=== PATIENT | female | born 1960 | race Caucasian/White ===

== ENCOUNTER 2017-09-28 13:40 | Inpatient (IN) | payer OTHER ==
--- OUTSIDE RECORDS SUMMARY | 2017-09-28 13:44 | XMS REPORT ---
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 Problem Back pain M54.9 Active Problem O2 dependent Z99.81 Active Problem Depression with anxiety F41.8 Active Problem Gastro-esophageal reflux disease K21.9 Active without esophagitis Problem Lymphedema I89.0 Active Problem Shingles B02.9 Active Assessment Congestive heart failure, systolic, I50.20 Active left NYHA class 4 Problem Benign essential HTN I10 Active Problem Congestive heart failure, systolic, I50.20 Active left NYHA class 4 Medications Medication Code System Code Instructions Start Date End Date Status Dosage Furosemide [facility] 20632779380 80 MG Orally Active 1 tablet Twice a day Results No Known Results Summary Purpose [employer] Compliance Submission
--- OUTSIDE RECORDS SUMMARY | 2017-09-28 13:44 | XMS REPORT | Clinical Summary ---
:1960 Author Organization [facility] Address [address] [place] [address] Care Team Providers Name Role Phone Asked, No Pcp Primary Care Provider Unavailable Allergies No Known Allergies Current Medications Prescription Sig. Disp. Refills Start Date End Date Status traMADol (ULTRAM) 50 Take 50 mg by Active mg tablet mouth every 6 (six) hours as needed for moderate pain. furosemide (LASIX) Take 80 mg by Active 80 mg tablet mouth 3 (three) times a day. atenolol (TENORMIN) Take 50 mg by Active 50 MG tablet mouth daily. hydrALAZINE Take 25 mg by Active (APRESOLINE) 25 MG mouth 2 (two) tablet times a day. ALPRAZolam (XANAX) Take 0.25 mg by Active 0.25 MG tablet mouth nightly as needed for anxiety. potassium chloride Take 20 mEq by Active (K-DUR,KLOR-CON) 10 mouth 3 (three) MEQ CR tablet times a day. citalopram (CeleXA) Take 20 mg by Active 20 MG tablet mouth daily. pantoprazole Take 40 mg by Active (PROTONIX) 40 MG EC mouth daily. tablet cyanocobalamin 1000 Take 1,000 mcg by Active MCG tablet mouth daily. ascorbic acid, Take 500 mg by Active vitamin C, (VITAMIN mouth daily. C) 500 MG tablet fluticasone-salmeter Inhale 1 puff 2 Active ol (ADVAIR) 100-50 (two) times a day. mcg/dose DISKUS albuterol Take 2.5 mg by Active (PROVENTIL) 2.5 mg nebulization 4 /3 mL (0.083 %) (four) times a nebulizer solution day. guaiFENesin Take 1 tablet (600 60 tablet 0 09/26/2016 (MUCINEX) 600 mg mg total) by mouth 7 tablet extended 2 (two) times a release 12hr day for 30 days. fluticasone 2 sprays (100 mcg 15.8 mL 0 09/26/2016 (FLONASE) 50 total) by Each 7 mcg/actuation nasal Nare route daily spray for 30 days. nystatin Apply topically 2 240 g 0 09/26/2016 (MYCOSTATIN) 100,000 (two) times a day 7 unit/gram powder for 30 days. minocycline Take 1 capsule 14 capsule 0 09/26/2016 (MINOCIN) 100 MG (100 mg total) by 7 capsule mouth 2 (two) times a day for 7 days. albuterol (PROAIR Inhale 2 puffs 18 g 11 09/26/2016 HFA,PROVENTIL every 6 (six) 7 HFA,VENTOLIN HFA) 90 hours as needed mcg/actuation for wheezing for inhaler up to 30 days. Active Problems Problem Noted Date CHF (congestive heart failure) 09/22/2016 Chronic obstructive pulmonary disease with acute exacerbation 09/22/2016 Lymphedema 09/22/2016 Essential hypertension 09/22/2016 Social History Tobacco Use Types Packs/Day Years Used Date Never Assessed Sex Assigned at Date Recorded Not on file Last Filed Vital Signs Not on file Plan of Treatment Not on file Results Not on fileafter 09/27/2016 Insurance Payer Benefit Plan / Group Subscriber ID Type Phone Address AETNA MEDICARE AETNA MEDICARE HMO/PPO [facility] xxxxxxxx HMO
--- OUTSIDE RECORDS SUMMARY | 2017-09-28 13:44 | XMS REPORT ---
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 Assessment O2 dependent Z99.81 Active Problem Back pain M54.9 Active Problem O2 dependent Z99.81 Active Problem Depression with anxiety F41.8 Active Problem Gastro-esophageal reflux disease K21.9 Active without esophagitis Problem Lymphedema I89.0 Active Problem Shingles B02.9 Active Assessment Lymphedema I89.0 Active Assessment Depression with anxiety F41.8 Active Assessment Gastro-esophageal reflux disease K21.9 Active without esophagitis Assessment Back pain M54.9 Active Assessment Congestive heart failure, systolic, I50.20 Active left NYHA class 4 Assessment Chronic bronchitis with COPD J44.9 Active (chronic obstructive pulmonary disease) Assessment Hyperlipidemia, mixed E78.2 Active Problem Benign essential HTN I10 Active Assessment Benign essential HTN I10 Active Problem Congestive heart failure, systolic, I50.20 Active left NYHA class 4 Medications Medication Code Code Instructions Start End Status Dosage System Date Date Metolazone [facility] 83631375258 2.5 MG Orally M, Active 1 tablet W, F. Take 30 minutes before taking alsix in AM. Ventolin HFA [facility] 38775271193 108 (90 Base) Active 2 puffs MCG/ACT as needed Inhalation every 6 hrs -81 ND 83633604298 81 MG Orally Active 1 tablet Once a day Ultram [facility] 10539378833 50 MG Orally Sept Active 1 tablet once a day as 24, as needed needed 2017 Furosemide ND 33954133296 80 MG Orally Active 1 tablet Once a day Breo Ellipta ND 64266540221 100-25 MCG/INH Sept Active 1 puff Inhalation Once 24, a day 2017 Pantoprazole ND 86498542748 40 MG Orally Active 1 tablet Sodium Once a day Atenolol [facility] 42917256050 50 MG Orally Active 1 tablet Once a day Klor-Con M10 [facility] 23902110537 10 MEQ Orally Active 1 tablet Twice a day with food Alprazolam [facility] 75221925800 0.25 MG Orally Active 1 tablet Twice a day HydrALAZINE HCl [facility] 02603688364 25 MG Orally Active 1 tablet Three times a with food day Cozaar [facility] 45201990639 50 MG Orally Active 1 tablet Once a day Citalopram [facility] 61317546005 40 MG Orally Active 1 tablet Hydrobromide Once a day Results No Known Results Summary Purpose [employer]Works Submission
--- NOTE | 2017-09-28 15:08 | RAD REPORT ---
EXAM DESCRIPTION: RAD - Chest Pa And Lat (2 Views) - 09/28/2017 3:03 pm CLINICAL HISTORY: COPD;Chest pain Chest pain. COMPARISON: Chest Single View dated 08/12/2016; Chest Pa And Lat (2 Views) dated 06/12/2016; Chest Singl e View dated 06/11/2016; Chest Single View dated 06/10/2016 FINDINGS: Linear opacities are present in both lungs most compatible with subsegmental atelectasis. No pneumothorax is seen. The heart is mildly prominent size. No displaced fractures. IMPRESSION: Bilateral subsegmental atelectasis is present.
--- NOTE | 2017-09-28 16:34 | EDPHYS ---
Physician Documentation [facility] Name: Gaye Castro Age: 56 yrs Sex: Female : 1960 Arrival Date: 09/28/2017 Time: 13:53 Bed 14 Private MD: ED Physician Mariano Berg HPI: 09/28 16:29 This 56 yrs old Female presents to ER via Ambulatory with complaints of rosalind Shortness Of Breath. 16:29 The patient has shortness of breath with light activity. Onset: The symptoms/episode rosalind began/occurred 3 day(s) ago. Duration: The symptoms are continuous, and are steadily getting worse. The patient's shortness of breath is aggravated by supine position, walking. Associated signs and symptoms: The patient has no apparent associated signs or symptoms. Severity of symptoms: At their worst the symptoms were moderate in the emergency department the symptoms are unchanged. The patient has experienced similar episodes in the past, multiple times. 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 N/A - Post-menopause aj Historical: - Allergies: 13:59 No Known Allergies; aj - Home Meds: 13:59 Advair Diskus 100-50 mcg/dose Inhl dsdv 1 puff 2 times per day [Active]; albuterol aj sulfate 2.5 mg/0.5 mL Inhl nebu 0.5 mL 4 times per day [Active]; alprazolam 0.25 mg Oral tab 1 tab once a day [Active]; Apresoline Oral 25 mg twice a day [Active]; atenolol 50 mg Oral tab 1 tab once daily [Active]; Breo Ellipta inhalation 1 puff once daily [Active]; citalopram 20 mg tab 1 tab once daily [Active]; hydralazine 25 mg Oral tab 1 tab 2 times per day [Active]; Klor-Con M20 20 mEq Oral TbTQ 1 tab once daily [Active]; Lasix 80 mg Oral tab 1 tab once daily [Active]; pantoprazole 40 mg Oral TbEC 1 tab once daily [Active]; tramadol 50 mg Oral tab as needed [Active]; Ventolin Rotahaler/Rotacaps 90 Inhl 90 mcg four times a day [Active]; - PMHx: 13:59 Anxiety; CHF; COPD; Depression; Hypertension; hypoxia; lymphedema; Pneumonia; Sleep aj Apnea; small heart and lungs; uses home o2; - PSHx: 13:59 None; aj - Immunization history:: Adult Immunizations up to date. - Social history:: Smoking status: Patient/guardian denies using tobacco. - Ebola Screening: : Patient negative for fever greater than or equal to 101.5 degrees Fahrenheit, and additional compatible Ebola Virus Disease symptoms Patient denies exposure to infectious person Patient denies travel to an Ebola-affected area in the 21 days before illness onset No symptoms or risks identified at this time. ROS: 16:29 Constitutional: Negative for fever, chills, and weight loss, Eyes: Negative for injury, rosalind pain, redness, and discharge, ENT: Negative for injury, pain, and discharge, Neck: Negative for injury, pain, and swelling, Cardiovascular: Negative for chest pain, palpitations, and edema, Abdomen/GI: Negative for abdominal pain, nausea, vomiting, diarrhea, and constipation, Back: Negative for injury and pain, : Negative for injury, bleeding, discharge, and swelling, Skin: Negative for injury, rash, and discoloration, Neuro: Negative for headache, weakness, numbness, tingling, and seizure, Psych: Negative for depression, anxiety, suicide ideation, homicidal ideation, and hallucinations, Allergy/Immunology: Negative for hives, rash, and allergies, Endocrine: Negative for neck swelling, polydipsia, polyuria, polyphagia, and marked weight changes, Hematologic/Lymphatic: Negative for swollen nodes, abnormal bleeding, and unusual bruising. 16:29 Respiratory: Positive for cough, shortness of breath, wheezing, inspiratory, expiratory. 16:29 MS/extremity: Positive for decreased range of motion, pain, swelling, of the right leg and left leg. Exam: 16:29 Constitutional: This is a well developed, well nourished patient who is awake, alert, rosalind and in no acute distress. Head/Face: Normocephalic, atraumatic. Eyes: Pupils equal round and reactive to light, extra-ocular motions intact. Lids and lashes normal. Conjunctiva and sclera are non-icteric and not injected. Cornea within normal limits. Periorbital areas with no swelling, redness, or edema. ENT: Nares patent. No nasal discharge, no septal abnormalities noted. Tympanic membranes are normal and external auditory canals are clear. Oropharynx with no redness, swelling, or masses, exudates, or evidence of obstruction, uvula midline. Mucous membranes moist. Neck: Trachea midline, no thyromegaly or masses palpated, and no cervical lymphadenopathy. Supple, full range of motion without nuchal rigidity, or vertebral point tenderness. No Meningismus. Chest/axilla: Normal chest wall appearance and motion. Nontender with no deformity. No lesions are appreciated. Cardiovascular: Regular rate and rhythm with a normal S1 and S2. No gallops, murmurs, or rubs. Normal PMI, no JVD. No pulse deficits. Abdomen/GI: Soft, non-tender, with normal bowel sounds. No distension or tympany. No guarding or rebound. No evidence of tenderness throughout. Back: No spinal tenderness. No costovertebral tenderness. Full range of motion. Female : Normal external genitalia. Skin: Warm, dry with normal turgor. Normal color with no rashes, no lesions, and no evidence of cellulitis. Neuro: Awake and alert, GCS 15, oriented to person, place, time, and situation. Cranial nerves II-XII grossly intact. Motor strength 5/5 in all extremities. Sensory grossly intact. Cerebellar exam normal. Normal gait. Psych: Awake, alert, with orientation to person, place and time. Behavior, mood, and affect are within normal limits. 16:29 Respiratory: mild respiratory distress is noted, Respirations: normal, Breath sounds: decreased breath sounds, rhonchi, wheezing: expiratory 16:29 Musculoskeletal/extremity: Extremities: swelling, ROM: limited active range of motion, limited passive range of motion, Circulation is intact in all extremities. Sensation intact. Compartment Syndrome exam of affected extremity: is normal. DVT Exam: no pain, negative Homans' sign noted on exam, no appreciated bluish discoloration, no erythema, no increased warmth, swelling, tenderness. Vital Signs: 13:59 BP 126 / 73; Pulse 96; Resp 17; Temp 97.7; Pulse Ox 89% on 2 lpm NC; Weight 131.54 kg; aj Height 5 ft. 0 in. (152.40 cm); 15:00 BP 127 / 74; Pulse 88; Resp 20; Pulse Ox 94% on 2 lpm NC; ph 16:00 BP 127 / 66; Pulse 73; Resp 22; Pulse Ox 91% on 2 lpm NC; ph 17:19 BP 128 / 79; Pulse 66; Resp 18; Temp 97.8; Pulse Ox 95% on 2 lpm NC; ph 18:45 BP 118 / 67; Pulse 78; Resp 22; Pulse Ox 91% on 2 lpm NC; ph 20:00 BP 118 / 67; Pulse 90; Resp 19; Pulse Ox 97% on R/A; Pain 0/10; ao 13:59 Body Mass Index 56.64 (131.54 kg, 152.40 cm) aj MDM: 15:56 Patient medically screened. [facility] 16:29 Data reviewed: vital signs, nurses notes, lab test result(s), EKG, radiologic studies, [facility] CT scan, plain films. 09/28 16:01 Order name: Basic Metabolic Panel; Complete Time: 18:51 [facility] 09/28 16:01 Order name: CBC with Diff; Complete Time: 18:51 [facility] 09/28 16:01 Order name: Ckmb; Complete Time: 18:52 [facility] 09/28 16:01 Order name: CPK; Complete Time: 18:52 [facility] 09/28 16:01 Order name: LFT's; Complete Time: 18:51 [facility] 09/28 16:01 Order name: Magnesium; Complete Time: 18:52 [facility] 09/28 14:49 Order name: Chest Pa And Lat (2 Views) XRAY; Complete Time: 16:28 [facility] 09/28 16:01 Order name: NT PRO-BNP; Complete Time: 18:51 [facility] 09/28 16:01 Order name: PT-INR; Complete Time: 18:51 [facility] 09/28 16:01 Order name: Ptt, Activated; Complete Time: 18:52 [facility] 09/28 16:01 Order name: Troponin (emerg Dept Use Only); Complete Time: 18:52 [facility] 09/28 16:01 Order name: Blood Culture Adult (2) [facility] 09/28 16:01 Order name: Procalcitonin; Complete Time: 18:52 [facility] 09/28 14:49 Order name: O2 Per Protocol; Complete Time: 20:15 [facility] 09/28 16:01 Order name: EKG; Complete Time: 16:02 [facility] 09/28 16:01 Order name: Cardiac monitoring; Complete Time: 16:19 [facility] 09/28 16:01 Order name: EKG - Nurse/Tech; Complete Time: 16:19 [facility] 09/28 16:01 Order name: IV Saline Lock; Complete Time: 17:18 [facility] 09/28 16:01 Order name: Labs collected and sent; Complete Time: 17:18 [facility] 09/28 16:01 Order name: O2 Per Protocol; Complete Time: 16:08 [facility] 09/28 16:01 Order name: O2 Sat Monitoring; Complete Time: 16:08 [facility] 09/28 16:29 Order name: CT Chest For PE Angio [facility] 09/28 16:38 Order name: CONS Physician Consult [facility] 09/28 18:08 Order name: CT; Complete Time: 18:52 [facility] 09/28 18:52 Order name: INCENTIVE SPIROMETRY [facility] Administered Medications: 16:14 CANCELLED (Duplicate Order): LevOfloxacin 500 mg PO once [facility] 16:55 Drug: SOLU-Medrol 125 mg Route: IVP; Site: right antecubital; ph 19:20 Follow up: Response: No adverse reaction ph 17:00 Drug: Albuterol - atroVENT (3:1) (2.5 mg - 0.5 mg) 3 ml Route: Nebulizer; ph 19:21 Follow up: Response: No adverse reaction ph 17:00 Drug: levofloxacin 500 mg Volume: 100 ml; Route: IVPB; Infused Over: 60 mins; Site: ph right antecubital; 19:20 Follow up: Response: No adverse reaction; IV Status: Completed infusion ph Disposition: 09/28/17 16:33 Hospitalization ordered by Alexx Smith for Inpatient Admission. Preliminary diagnosis are Dyspnea, Dyspnea, unspecified, Chronic obstructive pulmonary disease with (acute) exacerbation, Cardiomegaly, Hypoxemia, Obesity, unspecified. - Bed requested for Telemetry/MedSurg (Inpatient). - Status is Inpatient Admission. ao - Condition is Fair. - Problem is new. - Symptoms have improved. UTI on Admission? No Signatures: Dispatcher [employer] EDMS Samira Delacruz RN RN aj Anderson, Corey, MD MD cha Therrien, Shelly, BILINGUAL TEACHER-C BILINGUAL TEACHER-Csnw Celena Montez RN RN ph Ortiz, Alex, RN RN ao Botello, Elizabeth eb Corrections: (The following items were deleted from the chart) 16:03 16:02 PROBNP+C.LAB.BRZ ordered. EDIA EDMS 16:14 16:01 LevOfloxacin 500 mg PO once ordered. [facility] 19:21 16:33 Hospitalization Ordered by Alexx Smith DO for Inpatient Admission. Preliminary eb diagnosis is Dyspnea; Dyspnea, unspecified; Chronic obstructive pulmonary disease with (acute) exacerbation; Cardiomegaly; Hypoxemia; Obesity, unspecified. Bed requested for Telemetry/MedSurg (Inpatient). Status is Inpatient Admission. Condition is Fair. Problem is new. Symptoms have improved. UTI on Admission? No. [facility] 20:23 19:21 09/28/2017 16:33 Hospitalization Ordered by Alexx Smith DO for Inpatient ao Admission. Preliminary diagnosis is Dyspnea; Dyspnea, unspecified; Chronic obstructive pulmonary disease with (acute) exacerbation; Cardiomegaly; Hypoxemia; Obesity, unspecified. Bed requested for Telemetry/MedSurg (Inpatient). Status is Inpatient Admission. Condition is Fair. Problem is new. Symptoms have improved. UTI on Admission? No. eb
--- NOTE | 2017-09-28 16:34 | ER ---
Nurse's Notes [facility] Name: Gaye Castro Age: 56 yrs Sex: Female : 1960 Arrival Date: 09/28/2017 Time: 13:53 Bed 14 Private MD: Diagnosis: Dyspnea;Dyspnea, unspecified;Chronic obstructive pulmonary disease with (acute) exacerbation;Cardiomegaly;Hypoxemia;Obesity, unspecified Presentation: 09/28 13:57 Presenting complaint: Patient states: SOB that has gotten worse since falling out of chair almost 1 week ago. Patient reports pain to left chest. Transition of care: patient was not received from another setting of care. Onset of symptoms was September 22, 2017. Risk Assessment: Do you want to hurt yourself or someone else? Patient reports no desire to harm self or others. Initial Sepsis Screen: Does the patient meet any 2 criteria? No. Patient's initial sepsis screen is negative. Does the patient have a suspected source of infection? No. Patient's initial sepsis screen is negative. Care prior to arrival: None. 13:57 Method Of Arrival: Ambulatory 13:57 Acuity: DEBBY 3 Triage Assessment: 13:59 General: Appears in no apparent distress. obese, Behavior is calm, cooperative, aj appropriate for age. Pain: Complains of pain in left scapular area and left subscapular area. Neuro: Level of Consciousness is awake, alert, obeys commands, Oriented to person, place, time, situation, Appropriate for age. Respiratory: Reports shortness of breath at rest on exertion Onset: The symptoms/episode began/occurred gradually, the patient has moderate shortness of breath. Derm: Skin is intact, is healthy with good turgor, Skin is pink, warm \T\ dry. normal. RN CHRONIC: 13:59 LMP N/A - Post-menopause Historical: - Allergies: 13:59 No Known Allergies; aj - Home Meds: 13:59 Advair Diskus 100-50 mcg/dose Inhl dsdv 1 puff 2 times per day [Active]; albuterol aj sulfate 2.5 mg/0.5 mL Inhl nebu 0.5 mL 4 times per day [Active]; alprazolam 0.25 mg Oral tab 1 tab once a day [Active]; Apresoline Oral 25 mg twice a day [Active]; atenolol 50 mg Oral tab 1 tab once daily [Active]; Breo Ellipta inhalation 1 puff once daily [Active]; citalopram 20 mg tab 1 tab once daily [Active]; hydralazine 25 mg Oral tab 1 tab 2 times per day [Active]; Klor-Con M20 20 mEq Oral TbTQ 1 tab once daily [Active]; Lasix 80 mg Oral tab 1 tab once daily [Active]; pantoprazole 40 mg Oral TbEC 1 tab once daily [Active]; tramadol 50 mg Oral tab as needed [Active]; Ventolin Rotahaler/Rotacaps 90 Inhl 90 mcg four times a day [Active]; - PMHx: 13:59 Anxiety; CHF; COPD; Depression; Hypertension; hypoxia; lymphedema; Pneumonia; Sleep aj Apnea; small heart and lungs; uses home o2; - PSHx: 13:59 None; aj - Immunization history:: Adult Immunizations up to date. - Social history:: Smoking status: Patient/guardian denies using tobacco. - Ebola Screening: : Patient negative for fever greater than or equal to 101.5 degrees Fahrenheit, and additional compatible Ebola Virus Disease symptoms Patient denies exposure to infectious person Patient denies travel to an Ebola-affected area in the 21 days before illness onset No symptoms or risks identified at this time. Screenin:17 Abuse screen: Denies threats or abuse. Denies injuries from another. Nutritional ph screening: No deficits noted. Tuberculosis screening: No symptoms or risk factors identified. Fall Risk No fall in past 12 months (0 pts). No secondary diagnosis (0 pts). IV access (20 points). Ambulatory Aid- None/Bed Rest/Nurse Assist (0 pts). Gait- Weak (10 pts.). Mental Status- Oriented to own ability (0 pts). Assessment: 14:45 General: Appears in no apparent distress. comfortable, obese, Behavior is calm, ph cooperative, appropriate for age, Reports chills for. Pain: Denies pain. Neuro: Level of Consciousness is awake, alert, obeys commands, Oriented to person, place, time, situation. Cardiovascular: Reports shortness of breath, Denies chest pain, lightheadedness, nausea, vomiting, Capillary refill < 3 seconds Patient's skin is warm and dry. Edema is 3+ to left upper thigh, left lower thigh, left knee, left midcalf, left ankle, left toes, right upper thigh, right lower thigh, right knee, right midcalf, right ankle and right toes Rhythm is regular. Respiratory: Airway is patent Respiratory effort is even, unlabored, Respiratory pattern is regular, symmetrical, Breath sounds are diminished in left posterior lower lobe and right posterior lower lobe. GI: Reports diarrhea, Patient currently denies abdominal pain, nausea, vomiting. Derm: Skin is intact, is healthy with good turgor, Skin is pink, warm \T\ dry. Musculoskeletal: Circulation, motion, and sensation intact. Range of motion: intact in all extremities. 16:00 Reassessment: Patient appears in no apparent distress at this time. Patient and/or ph family updated on plan of care and expected duration. Pain level reassessed. Patient is alert, oriented x 3, equal unlabored respirations, skin warm/dry/pink. Awaiting lab results and CT scan Patient denies pain at this time. 17:15 Reassessment: Patient appears in no apparent distress at this time. Patient and/or ph family updated on plan of care and expected duration. Pain level reassessed. Patient is alert, oriented x 3, equal unlabored respirations, skin warm/dry/pink. Pt resting quietly, awaiting CT scan, SO at bedside. 18:25 Reassessment: Patient appears in no apparent distress at this time. Patient and/or ph family updated on plan of care and expected duration. Pain level reassessed. Patient is alert, oriented x 3, equal unlabored respirations, skin warm/dry/pink. Pt resting quietly, awaiting CT results, at bedside. 19:15 General: Appears in no apparent distress. uncomfortable, Behavior is calm, cooperative, ao appropriate for age, Reports SOB. Pain: Denies pain. Neuro: Level of Consciousness is awake, alert, obeys commands, Oriented to person, place, time, situation, Appropriate for age Moves all extremities. Speech is normal, Facial symmetry appears normal. Cardiovascular: Reports shortness of breath, Denies chest pain, lightheadedness, nausea, vomiting, Capillary refill < 3 seconds Patient's skin is warm and dry. Respiratory: Airway is patent Respiratory effort is even, unlabored, Respiratory pattern is regular, symmetrical, Breath sounds are diminished. GI: Abdomen is flat, non-distended. : No signs and/or symptoms were reported regarding the genitourinary system. EENT: No signs and/or symptoms were reported regarding the EENT system. Derm: Skin is intact, is healthy with good turgor, Skin is pink, warm \T\ dry. Musculoskeletal: Circulation, motion, and sensation intact. Range of motion: intact in all extremities. 20:19 Reassessment: Patient appears in no apparent distress at this time. Patient and/or ao family updated on plan of care and expected duration. Pain level reassessed. Patient is alert, oriented x 3, equal unlabored respirations, skin warm/dry/pink. Called report to Farnaz LOPES Charge nurse. Patient to be taken to her Room. Vital Signs: 13:59 BP 126 / 73; Pulse 96; Resp 17; Temp 97.7; Pulse Ox 89% on 2 lpm NC; Weight 131.54 kg; aj Height 5 ft. 0 in. (152.40 cm); 15:00 BP 127 / 74; Pulse 88; Resp 20; Pulse Ox 94% on 2 lpm NC; ph 16:00 BP 127 / 66; Pulse 73; Resp 22; Pulse Ox 91% on 2 lpm NC; ph 17:19 BP 128 / 79; Pulse 66; Resp 18; Temp 97.8; Pulse Ox 95% on 2 lpm NC; ph 18:45 BP 118 / 67; Pulse 78; Resp 22; Pulse Ox 91% on 2 lpm NC; ph 20:00 BP 118 / 67; Pulse 90; Resp 19; Pulse Ox 97% on R/A; Pain 0/10; ao 13:59 Body Mass Index 56.64 (131.54 kg, 152.40 cm) ED Course: 13:53 Patient arrived in ED. aj 13:58 Triage completed. aj 13:59 Arm band placed on right wrist. Patient placed in waiting room, Patient notified of wait time. 15:03 Chest Pa And Lat (2 Views) XRAY In Process Unspecified. EDMS 15:56 Mariano Berg MD is Attending Physician. rosalind 15:56 Celena Montez, MARIANNE is Primary Nurse. ph 16:30 EKG done, by radiologic tech. reviewed by Mariano Berg MD. [facility] 16:32 Alexx Smith DO is Hospitalizing Provider. rosalind 16:34 Radiology exam delayed due to lab results not completed at this time. (BUN/Creatinine) mw3 IV insertion attempt and/or patient not having appropriate IV at this time. 16:40 Inserted saline lock: 22 gauge in right antecubital area, using aseptic technique. ph Blood collected. 17:18 Patient has correct armband on for positive identification. Bed in low position. Call ph light in reach. Side rails up X 1. machine hoop maker helper on. Pulse ox on. NIBP on. Warm blanket given. 17:[address] [facility] 17:54 CT completed. Patient tolerated procedure well. Patient moved back from [place]. tn 20:20 No provider procedures requiring assistance completed. Patient admitted, IV remains in ao place. Administered Medications: 16:14 CANCELLED (Duplicate Order): LevOfloxacin 500 mg PO once rosalind 16:55 Drug: SOLU-Medrol 125 mg Route: IVP; Site: right antecubital; ph 19:20 Follow up: Response: No adverse reaction ph 17:00 Drug: Albuterol - atroVENT (3:1) (2.5 mg - 0.5 mg) 3 ml Route: Nebulizer; ph 19:21 Follow up: Response: No adverse reaction ph 17:00 Drug: levofloxacin 500 mg Volume: 100 ml; Route: IVPB; Infused Over: 60 mins; Site: ph right antecubital; 19:20 Follow up: Response: No adverse reaction; IV Status: Completed infusion ph Outcome: 16:33 Decision to Hospitalize by Provider. rosalind 20:22 Admitted to Med/surg accompanied by tech, room 228, Report called to MARIANNE Osei Charge nurse 20:22 Condition: stable 20:22 Instructed on the need for admit. 20:23 Patient left the ED. ao Signatures: Dispatcher [employer] EDSamira Cho RN RN aj Anderson, Corey, MD MD cha Hall, Patricia, RN RN ph Ortiz, Alex, RN RN ao Jordan, Nathan nj Campbell, Joellen kc3 Ana Dias 3 Zee Christy mw3 Corrections: (The following items were deleted from the chart) 14:01 13:59 Arm band placed on right wrist. Patient placed in an exam room, sherron siu
[2017-09-28] MEDS ORDERED: Levofloxacin500mg IV 500 MG/100 ML BAG IV ONE (16:51)
[2017-09-28] MEDS ORDERED: ALBUTEROL 2.5 MG/3 ML NEB SOL ONE (16:51)
[2017-09-28] MEDS ORDERED: IPRATROPIUM BROM 0.5MG/2.5ML ONE (16:51)
[2017-09-28] MEDS ORDERED: METHYLPREDNISOLONE 125 MG INJ ONE (16:51)
[2017-09-28 16:55] LABS: Absolute Lymphocytes (CBC) 1.6 K/uL (0.7-4.9); Absolute Monocytes 0.5 K/uL (0.1-1.3); Absolute Neutrophil 4.8 K/uL (1.8-8.0); Basophils % 0.5 % (0-1.3); Eosinophils % 2.8 % (0-4.4); Hematocrit 36.7 % (36.0-45.0); Lymphocytes % 22.5 % (15.3-44.8); MCH 26.7 pg (27.0-35.0); MCV 83.8 fL (80-100); MPV 8.2 fL (7.6-11.3); Monocytes % 7.5 % (3.3-12.3); RBC Red Blood Cell Count 4.38 M/uL (3.86-4.86)
[2017-09-28 17:02] LABS: Protime INR 1.08
[2017-09-28] MEDS ORDERED: ACETAMINOPHEN 500 MG TAB PO PRN (17:27)
[2017-09-28] MEDS ORDERED: ALPRAZOLAM 0.25 MG TABLET PO PRN (17:27)
[2017-09-28] MEDS ORDERED: IPRATROPIUM BROM 0.5MG/2.5ML NEB PRN (17:27)
[2017-09-28] MEDS ORDERED: ALBUTEROL 2.5 MG/3 ML NEB SOL NEB PRN (17:27)
[2017-09-28] MEDS ORDERED: ONDANSETRON 4 MG/2 ML VIAL IV PRN (17:27)
[2017-09-28] MEDS ORDERED: TRAMADOL HCL 50 MG TAB PO PRN (17:27)
[2017-09-28 17:36] LABS: ALT/SGPT 25 U/L (12-78); AST/SGOT 28 U/L (15-37); Albumin 3.2 g/dL (3.4-5.0); Alkaline Phosphatase 66 U/L (45-117); BUN Blood Urea Nitrogen 19 mg/dL (7-18); Bicarbonate 33 mmol/L (21-32); Bilirubin Direct 0.2 mg/dL (0-0.2); CKMB Creatine Kinase MB < 1.0 ng/mL (0.3-3.6); Creatine Phosphokinase 53 U/L (26-192); Glucose Level 87 mg/dL (74-106); Magnesium 2.4 mg/dL (1.8-2.4); NT PRO-BNP 205 pg/mL (<125); Potassium 4.2 mmol/L (3.5-5.1); Protein, Total 8.1 g/dL (6.4-8.2); Sodium Level 139 mmol/L (136-145)
--- NOTE | 2017-09-28 18:08 | RAD REPORT ---
EXAM DESCRIPTION: CT - Chest For Pe Angio - 09/28/2017 5:56 pm CLINICAL HISTORY: Chest pain. COPD;SOB COMPARISON: Chest For Pe Angio dated 08/12/2016; Chest Pa And Lat (2 Views) dated 09/28/2017 TECHNIQUE: CT angiogram of the pulmonary arteries was performed with MIP. All CT scans are performed using dose optimization technique as appropriate and may include automated exposure control or mA/KV adjustment according to patient size. FINDINGS: No evidence of pulmonary thromboembolism. No acute aortic finding demonstrated. Areas of subsegmental atelectasis and ground-glass opacity is noted bilaterally, similar to prior juan carlos dy and likely chronic. No significant pericardial or pleural fluid. No concerning bony finding. Previously noted left adrenal mass is not fully included on this study. IMPRESSION: No evidence of pulmonary thromboembolism. Ground-glass opacity with subsegmental atelectasis bilaterally appearing chronic.
--- NOTE | 2017-09-28 18:26 | P.HP ---
Certification for Inpatient Patient admitted to: Observation With expected LOS: <2 Midnights Patient will require the following post-hospital care: Other Practitioner: I am a practitioner with admitting privileges, knowledge of patient current condition, hospital course, and medical plan of care. Services: Services provided to patient in accordance with Admission requirements found in Title 42 Section 412.3 of the Code of Federal Regulations Patient History Date of Service: 09/28/17 Primary Care Provider: Dr. Vera; Pulmonary-Dr. Bravo Reason for admission: Shortness of breath History of Present Illness: 56-year-old female presented emergency room with increasing shortness of breath. Patient start to notice increasing shortness of breath on Thursday. She reported that she fell in her left side bruising her back. Since then she has been noticing increasing wheezing. The patient has a history of COPD, CHF, lymphedema. Patient has been compliant with her medication. Patient denies any significant fever. Some congestion noted. Patient came to the ER for further evaluation. In the ER patient was evaluated. Patient was initially hypoxic with a room air saturations of 89%. Patient did not appear in any respiratory distress. White count 7.3, hemoglobin 11.7. Pro calcitonin unremarkable. Chest x-ray showed bilateral atelectasis. CT scan shows no pulmonary embolism. Due to nature of her findings the patient was admitted for further evaluation. When I saw the patient ER, she did not appear septic or in respiratory distress Patient stable at this time. Patient is oxygen dependent. Patient takes multiple medications for COPD and CHF. Allergies prednisone Allergy (Severe, Verified 06/10/16 22:48) Itching No Known Allerg Allergy (Uncoded 08/12/16 22:33) Unknown Home medications list reviewed: Yes Home Medications: ALPRAZolam [Xanax*] 0.25 mg PO BIDP PRN 09/16/15 Albuterol Sulfate [Ventolin Hfa] 1 puff IH Q4HP PRN 09/16/15 Atenolol [Tenormin*] 50 mg PO DAILY 09/16/15 Citalopram [Celexa*] 20 mg PO DAILY 09/16/15 Furosemide [Lasix] 80 mg PO BID 09/16/15 Hydralazine [Apresoline*] 25 mg PO BID 09/16/15 Losartan Potassium [Cozaar*] 50 mg PO DAILY 09/16/15 Albuterol Sulfate [Albuterol Sulfate 0.083% Neb Soln] 2.5 mg IH BIDP PRN Fluticasone/Vilanterol [Breo Ellipta 200-25 Mcg INH] 1 puff IH DAILY 06/10/16 Multivitamin with Iron [One Daily with Iron] 1 each PO DAILY 06/10/16 Benzonatate [Tessalon Perle*] 200 mg PO TID PRN #30 cap 06/12/16 Fluticasone [Flonase 50MCG Nasal [place]*] 1 sprays JAVIER BID #1 btl 06/12/16 Pantoprazole [Protonix Tab] 40 mg PO DAILY #30 tab 06/12/16 Spironolactone [Aldactone*] 25 mg PO BID #60 tab 06/12/16 Sulfamethoxazole/Trimethoprim [Bactrim Ds Tablet] 1 each PO BID #14 tablet 06/12 predniSONE [Prednisone*] 20 mg PO SEECOM #15 tab 06/12/16 traMADol HCL [Ultram*] 50 mg PO Q8HP PRN #30 tab 06/12/16 - Past Medical/Surgical History Diabetic: No -: HTN -: CHF, diastolic dysfunction -: COPD -: Lymphadema -: Obesity hypoventilation syndrome -: Anxiety -: GERD -: Morbid obesity -: Secondhand smoke exposure Past Surgical History: Patient denies surgical history Psychosocial/ Personal History: Patient lives with her boyfriend - Family History Mother -: Heart disease, Hypertension, Diabetes, Other (see notes) Notes: dementia - Social History Smoking Status: Never smoker Alcohol use: No CD- Drugs: No Caffeine use: Yes Place of Residence: Home Review of Systems General: As per HPI Eyes: Unremarkable ENT: Unremarkable Respiratory: Shortness of Breath, Wheezing, As per HPI Cardiovascular: Edema, As per HPI Gastrointestinal: Unremarkable Genitourinary: Unremarkable Musculoskeletal: Pedal edema, As per HPI Integumentary: As per HPI Neurological: Unremarkable Lymphatics: Unremarkable Physical Examination - Physical Exam General: Alert, In no apparent distress, Oriented x3, Cooperative HEENT: Atraumatic, Normocephalic, PERRLA, Mucous membr. moist/pink Neck: Supple, No Thyromegaly Respiratory: Expiratory wheezes (Mild wheezing bilateral) Cardiovascular: Regular rate/rhythm Gastrointestinal: Normal bowel sounds, Soft and benign, Non-distended, No tenderness, No masses, No rebound, No guarding Musculoskeletal: No erythema, No tenderness, No warmth Integumentary: Other (Lymphedema noted to the lower extremities bilateral) Neurological: Normal speech, Normal strength at 5/5 x4 extr, Normal tone, Normal affect Lymphatics: No axilla or inguinal lymphadenopathy Assessment and Plan - Problems (Diagnosis) (1) CHF (congestive heart failure) Current Visit: Yes Status: Acute Plan: Suspect diastolic CHF. Will continue with a 1500 cc per day fluid restriction. Will continue with Lasix. Will check echocardiogram. Will physical therapy assess tomorrow. Patient will likely need assistance at home. Qualifiers: Heart failure type: diastolic Heart failure chronicity: acute on chronic Qualified Code(s): I50.33 - Acute on chronic diastolic (congestive) heart failure (2) COPD (chronic obstructive pulmonary disease) Current Visit: Yes Status: Chronic Plan: Patient with COPD. Suspect no exacerbation at this time. Will continue with COPD medication. Patient uses home oxygen. Will consult pulmonology to further evaluate Qualifiers: COPD type: chronic bronchitis (3) HTN (hypertension) Onset Date: 06/11/16 Current Visit: No Status: Chronic Plan: Will verify and start home medication Qualifiers: Hypertension type: essential hypertension (4) SOB (shortness of breath) Onset Date: 06/11/16 Current Visit: No Status: Acute Plan: Likely secondary to CHF exacerbation with noted lymphedema. Will continue with treatment. Echocardiogram is will continue with Lasix. (5) Depression with anxiety Current Visit: No Status: Chronic Plan: Continue with home medication (6) Lymphedema in adult patient Onset Date: 06/11/16 Current Visit: No Status: Chronic Plan: Continue as above. (7) Morbid obesity Onset Date: 06/11/16 Current Visit: No Status: Chronic Plan: Will assess BMI. (8) GERD (gastroesophageal reflux disease) Current Visit: No Status: Chronic Plan: Continue with medication. Qualifiers: Esophagitis presence: esophagitis presence not specified Discharge Plan: Home Plan to discharge in: 48 Hours - Advance Directives Does patient have a Living Will: No Does patient have a Durable POA for Healthcare: No - Code Status/Comfort Care Code Status Assessed: Yes Time Spent Managing Pts Care (In Minutes): 55
[2017-09-28] MEDS: ARFORMOTEROL TARTRATE 15 MCG/2 ML VIAL.NEB NEB SCH (20:46)
--- NOTE | 2017-09-28 20:53 | EKG ---
Test Date: 2017-09-28 Test Time: 16:18:11 Director Independent: SONIA MEASUREMENT RESULTS: Intervals: Rate: 66 NM: 184 QRSD: 92 QT: 428 QTc: 448 [place]: P: 50 NM: 184 QRS: 52 T: 6 INTERPRETIVE STATEMENTS: Normal sinus rhythm Nonspecific T wave abnormality Abnormal ECG Compared to ECG 08/12/2016 19:34:49 T-wave abnormality now present Sinus bradycardia no longer present First degree AV block no longer present Electronically Signed On 09-28-17 20:52:42 CDT by Jai Rincon
[2017-09-28] MEDS: ENOXAPARIN 40 MG/0.4 ML SQ SCH (21:00)
[2017-09-28] MEDS ORDERED: NA CHLORIDE 0.9% 1,000 ML ONE (21:26)
[2017-09-29 00:15] LABS: CKMB Creatine Kinase MB < 1.0 ng/mL (0.3-3.6); Creatine Phosphokinase 59 U/L (26-192)
[2017-09-29 03:39] VITALS: BMI 58.2
[2017-09-29 05:23] LABS: Absolute Lymphocytes (CBC) 0.6 K/uL (0.7-4.9); Absolute Monocytes 0.1 K/uL (0.1-1.3); Hematocrit 38.3 % (36.0-45.0); MCH 26.8 pg (27.0-35.0); MCV 84.1 fL (80-100); MPV 8.3 fL (7.6-11.3); Monocytes % 0.9 % (3.3-12.3); RBC Red Blood Cell Count 4.56 M/uL (3.86-4.86)
[2017-09-29 05:57] LABS: Magnesium 2.4 mg/dL (1.8-2.4); Potassium 4.6 mmol/L (3.5-5.1); Thyroid Stimulating Hormone 0.38 uIU/mL (0.36-3.74)
[2017-09-29] MEDS: CARVEDILOL 3.125 MG TAB PO SCH ×2 (06:14→17:04)
[2017-09-29] MEDS: PANTOPRAZOLE 40MG TABLET PO SCH (06:15)
[2017-09-29 06:19] LABS: Blood Morphology Comment NOT SEEN (NOT SEEN); Platelet Estimate ADEQ
[2017-09-29 06:31] LABS: Urine Appearance CLEAR; Urine Bilirubin NEGATIVE (NEG); Urine Blood NEGATIVE (NEG); Urine Color YELLOW; Urine Glucose TRACE (NEG); Urine Protein NEGATIVE (NEG); Urine Specific Gravity >=1.030 (1.005-1.030); Urine Urobilinogen 0.2 mg/dL (0.2-1.0)
[2017-09-29 06:35] LABS: Urine Microscopic Reflex NO UMIC
[2017-09-29 08:07] LABS: CKMB Creatine Kinase MB 1.3 ng/mL (0.3-3.6)
--- NOTE | 2017-09-29 08:17 | RAD REPORT ---
EXAM DESCRIPTION: RAD - Chest Pa And Lat (2 Views) - 09/29/2017 6:41 am CLINICAL HISTORY: follow up CHF/COPD Chest pain. COMPARISON: Chest Pa And Lat (2 Views) dated 09/28/2017; Chest Single View dated 08/12/2016; Chest Pa A nd Lat (2 Views) dated 06/12/2016; Chest Single View dated 06/11/2016 FINDINGS: Since 09/28/2017, no significant change is seen in bilateral linear subsegmental atelectas is. No focal consolidation typical of bacterial pneumonia is seen. The heart is upper limit normal in size. No displaced fractures. IMPRESSION: Stable chest since 09/28/2017.
[2017-09-29] MEDS ORDERED: FUROSEMIDE 40 MG/4 ML VIAL IV SCH (09:00)
[2017-09-29] MEDS: CITALOPRAM 10 MG TABLET PO SCH (09:37)
[2017-09-29] MEDS: ENOXAPARIN 40 MG/0.4 ML SQ SCH (09:37)
[2017-09-29] MEDS: FUROSEMIDE 40 MG/4 ML VIAL IV SCH ×2 (09:38→17:04)
[2017-09-29] MEDS: ARFORMOTEROL TARTRATE 15 MCG/2 ML VIAL.NEB NEB SCH ×2 (11:09→19:27)
--- NOTE | 2017-09-29 12:47 | P.CNS ---
Date of Consult: 09/29/17 Reason for Consult: Shortness of breath Primary Care Provider: Dr. Vera; Pulmonary-Dr. Bravo Chief Complaint: Shortness of breath History of Present Illness: Patient is 56 years of age admitted with a week's history of progressive shortness of breath she does use her bronchodilators at at home complains of more swelling of her lower extremity slight cough no fever chills he is feeling a little better patient is never smoked history of obstructive sleep apnea noncompliant CPAP was returned complains of feeling bloated patient does take Lasix 80 mg a day with booster doses in between Allergies No Known Allergies Allergy (Verified 09/28/17 20:07) Home Medications: ALPRAZolam [Xanax*] 0.25 mg PO BIDP PRN 09/16/15 Atenolol [Tenormin*] 50 mg PO DAILY 09/16/15 Citalopram [Celexa*] 20 mg PO DAILY 09/16/15 Furosemide [Lasix] 80 mg PO BID 09/16/15 Hydralazine [Apresoline*] 25 mg PO BID 09/16/15 Albuterol Sulfate [Albuterol Sulfate 0.083% Neb Soln] 1 puff IH QID 06/10/16 Fluticasone/Vilanterol [Breo Ellipta 200-25 Mcg INH] 1 puff IH DAILY 06/10/16 Pantoprazole [Protonix Tab] 40 mg PO DAILY #30 tab 06/12/16 traMADol HCL [Ultram*] 50 mg PO Q8HP PRN #30 tab 06/12/16 Potassium Oral Tab [Klor-Con 10 mEq Tab] 20 meq PO DAILY 09/28/17 metOLazone [Zaroxolyn] 2.5 mg PO M,W,F 09/28/17 - Past Medical/Surgical History Diabetic: No -: HTN -: CHF, diastolic dysfunction -: COPD -: Lymphadema -: Obesity hypoventilation syndrome -: Anxiety -: GERD -: Morbid obesity -: Secondhand smoke exposure -: Depression Psychosocial/ Personal History: Patient lives with her boyfriend - Family History Mother Medical History: Heart disease, Hypertension, Diabetes, Other (see notes) Notes: dementia - Social History Smoking Status: Never smoker Alcohol use: No CD- Drugs: No Caffeine use: Yes Place of Residence: Home Review of Systems General: Weakness Respiratory: Shortness of Breath Cardiovascular: Edema Physical Examination Temp Pulse Resp BP Pulse Ox 96.6 F L 50 20 136/68 93 09/29/17 08:00 09/29/17 09:38 09/29/17 08:00 09/29/17 09:38 09/29/17 08:00 General: Alert, Oriented x3 HEENT: Atraumatic Neck: Supple Respiratory: Crackles/rales Cardiovascular: No edema, Regular rate/rhythm Gastrointestinal: Normal bowel sounds, Soft and benign Musculoskeletal: No clubbing, No swelling Integumentary: No rashes, No breakdown Neurological: Normal gait, Normal speech - Problems (1) SOB (shortness of breath) Onset Date: 09/29/17 Current Visit: Yes Status: Acute Plan: Patient is 56 years of age with a history of obstructive airways disease admitted with worsening dyspnea patient is compliant with Breo normal previous echocardiogram noncompliant with CPAP chemistries all reviewed PET scan chronic changes interstitial lung disease she probably has undersigned diastolic dysfunction continue with diuretics at spironolactone patient has oxygen at home labs CT scan
--- NOTE | 2017-09-29 12:53 | P.PN ---
Subjective Date of Service: 09/29/17 Primary Care Provider: Dr. Vera; Pulmonary-Dr. Bravo Chief Complaint: Shortness of breath Subjective: Other (Patient doing better. Patient required more oxygen this morning.) Physical Examination - Vital Signs Temperature: 96.6 F Blood Pressure: 136/68 Pulse: 50 Respirations: 20 Pulse Ox (%): 93 - Physical Exam General: Alert, In no apparent distress, Oriented x3, Cooperative HEENT: Atraumatic Neck: Supple Respiratory: Crackles/rales (Bilateral), Expiratory wheezes (Bilateral) Cardiovascular: Regular rate/rhythm Gastrointestinal: Normal bowel sounds, Soft and benign, Non-distended, Other ( Morbid obesity) Musculoskeletal: No tenderness, No warmth Integumentary: Tenderness/swelling (Edema to the lower extremities slightly improved.) Neurological: Normal speech, Normal strength at 5/5 x4 extr, Normal tone, Normal affect - Studies Medications List Reviewed: Yes Assessment & Plan - Problems (Diagnosis) (1) CHF (congestive heart failure) Onset Date: 09/29/17 Current Visit: Yes Status: Acute Plan: Suspect diastolic CHF. Echocardiogram pending. Will continue with 1500 cc per day fluid restriction. Will continue with Lasix. Aldactone added. Will have physical therapy assess ambulation. Anticipate possible discharge tomorrow. Qualifiers: Heart failure type: diastolic Heart failure chronicity: acute on chronic Qualified Code(s): I50.33 - Acute on chronic diastolic (congestive) heart failure (2) COPD (chronic obstructive pulmonary disease) Onset Date: 09/29/17 Current Visit: Yes Status: Chronic Plan: Patient with COPD. Suspect no exacerbation at this time. Will continue with COPD medication. Patient uses home oxygen. Pulmonology plans to provide home oxygen equipment as an outpatient. Patient desires lightweight equipment. Qualifiers: COPD type: chronic bronchitis (3) HTN (hypertension) Onset Date: 06/11/16 Current Visit: No Status: Chronic Plan: Continue with medication Qualifiers: Hypertension type: essential hypertension (4) SOB (shortness of breath) Onset Date: 06/11/16 Current Visit: No Status: Acute Plan: Likely secondary to CHF exacerbation with noted lymphedema. Will continue with treatment. ECHO pending. Continue with lasix and aldactone. Wean down oxygen. (5) Depression with anxiety Onset Date: 09/29/17 Current Visit: Yes Status: Chronic Plan: Continue with home medication (6) Lymphedema in adult patient Onset Date: 06/11/16 Current Visit: No Status: Chronic Plan: Continue as above. (7) Morbid obesity Onset Date: 06/11/16 Current Visit: No Status: Chronic Plan: Address lifestyle modifications. (8) GERD (gastroesophageal reflux disease) Onset Date: 09/29/17 Current Visit: Yes Status: Chronic Plan: Continue with medication. Qualifiers: Esophagitis presence: esophagitis presence not specified Discharge Plan: Home Plan to discharge in: 24 Hours Time Spent Managing Pts Care (In Minutes): 55
[2017-09-29] MEDS: SPIRONOLACTONE 25 MG TABLET PO SCH ×2 (14:01→22:13)
--- NOTE | 2017-09-29 16:06 | ECHO ---
HEIGHT: 5 ft 0 in WEIGHT: 298 lb 3.2 oz DATE OF STUDY: 09/29/[address]: Alexx Smith DO 2-DIMENSIONAL: YES M.MODE: YES DOPPLER: YES COLOR FLOW: YES TDS: YES PORTABLE: NO DEFINITY: NO BUBBLE STUDY: NO DIAGNOSIS: EVALUATE FOR CONGESTIVE HEART FAILURE CARDIAC HISTORY: CATHERIZATION: NO SURGERY: NO PROSTHETIC VALVE: NO PACEMAKER: NO MEASUREMENTS (cm) DIASTOLIC (NORMALS) SYSTOLIC (NORMALS) IVSd 1.3 (0.6-1.2) LA Diam 3.9 (1.9-4.0) LVEF 69% LVIDd 4.8 (3.5-5.7) LVIDs 2.9 (2.0-3.5) %FS 39% LVPWd 1.4 (0.6-1.2) Ao Diam 2.6 (2.0-3.7) 2 DIMENSIONAL ASSESSMENT: RIGHT ATRIUM: NORMAL LEFT ATRIUM: NORMAL RIGHT VENTRICLE: NORMAL LEFT VENTRICLE: NORMAL TRICUSPID VALVE: NORMAL MITRAL VALVE: NORMAL PULMONIC VALVE: NORMAL AORTIC VALVE: NORMAL PERICARDIAL EFFUSION: NONE AORTIC ROOT: NORMAL LEFT VENTRICULAR WALL MOTION: NORMAL DOPPLER/COLOR FLOW: NORMAL COMMENTS: TECHNICALLY DIFFICULT STUDY. NORMAL LEFT VENTRICULAR SIZE AND FUNCTION. NO WALL MOTION ABNORMALITY. NO EFFUSION. TECHNOLOGIST: Zackery ARRIAZA
[2017-09-30 05:27] LABS: Absolute Lymphocytes (CBC) 2.1 K/uL (0.7-4.9); Absolute Monocytes 0.9 K/uL (0.1-1.3); Absolute Neutrophil 8.9 K/uL (1.8-8.0); Basophils % 0.2 % (0-1.3); Eosinophils % 0.1 % (0-4.4); Hematocrit 35.6 % (36.0-45.0); Lymphocytes % 17.8 % (15.3-44.8); MCH 26.5 pg (27.0-35.0); MPV 8.4 fL (7.6-11.3); Monocytes % 7.7 % (3.3-12.3); RBC Red Blood Cell Count 4.23 M/uL (3.86-4.86)
[2017-09-30 05:44] LABS: Magnesium 2.3 mg/dL (1.8-2.4); Potassium 3.8 mmol/L (3.5-5.1)
[2017-09-30] MEDS ORDERED: POTASSIUM CL SA 10 MEQ TAB PO ONE (06:05)
[2017-09-30] MEDS: CARVEDILOL 3.125 MG TAB PO SCH (06:26)
[2017-09-30] MEDS: PANTOPRAZOLE 40MG TABLET PO SCH (06:26)
[2017-09-30] MEDS: ARFORMOTEROL TARTRATE 15 MCG/2 ML VIAL.NEB NEB SCH (07:58)
--- NOTE | 2017-09-30 08:05 | P.DS ---
Admission Date: 09/28/17 Discharge Date: 09/30/17 Primary Care Provider: Dr. Vera; Pulmonary-Dr. Bravo Disposition: ROUTINE DISCHARGE Discharge Condition: GOOD Reason for Admission: Shortness of breath Consultations: Pulmonary-Dr. Bravo Procedures: Echocardiogram: Ejection fraction 69%. CT chest: No pulmonary embolism. Atelectasis noted. - Problems (1) CHF (congestive heart failure) Onset Date: 09/29/17 Current Visit: Yes Status: Acute Qualifiers: Heart failure type: diastolic Heart failure chronicity: acute on chronic Qualified Code(s): I50.33 - Acute on chronic diastolic (congestive) heart failure (2) COPD (chronic obstructive pulmonary disease) Onset Date: 09/29/17 Current Visit: Yes Status: Chronic Qualifiers: COPD type: chronic bronchitis (3) HTN (hypertension) Onset Date: 06/11/16 Current Visit: No Status: Chronic Qualifiers: Hypertension type: essential hypertension (4) SOB (shortness of breath) Onset Date: 06/11/16 Current Visit: No Status: Acute (5) Depression with anxiety Onset Date: 09/29/17 Current Visit: Yes Status: Chronic (6) Lymphedema in adult patient Onset Date: 06/11/16 Current Visit: No Status: Chronic (7) Morbid obesity Onset Date: 06/11/16 Current Visit: No Status: Chronic (8) GERD (gastroesophageal reflux disease) Onset Date: 09/29/17 Current Visit: Yes Status: Chronic Qualifiers: Esophagitis presence: esophagitis presence not specified (9) Atelectasis Current Visit: Yes Status: Acute Brief History of Present Illness: 56-year-old female presented emergency room with increasing shortness of breath. Patient start to notice increasing shortness of breath on Thursday. She reported that she fell in her left side bruising her back. Since then she has been noticing increasing wheezing. The patient has a history of COPD, CHF, lymphedema. Patient has been compliant with her medication. Patient denies any significant fever. Some congestion noted. Patient came to the ER for further evaluation. In the ER patient was evaluated. Patient was initially hypoxic with a room air saturations of 89%. Patient did not appear in any respiratory distress. White count 7.3, hemoglobin 11.7. Pro calcitonin unremarkable. Chest x-ray showed bilateral atelectasis. CT scan shows no pulmonary embolism. Due to nature of her findings the patient was admitted for further evaluation. When I saw the patient ER, she did not appear septic or in respiratory distress Patient stable at this time. Patient is oxygen dependent. Patient takes multiple medications for COPD and CHF. Hospital Course: During the course of her stay her condition improved. Patient presented with shortness of breath. Patient has a history of diastolic dysfunction-CHF and lymphedema. CT scan showed no pulmonary embolism. Atelectasis was noted. Shortness of breath likely related to acute on chronic diastolic dysfunction. Patient was diuresed. She was placed on a fluid restriction. Medications were adjusted. Patient previously on Lasix 80 mg 1 pill twice daily and metolazone several times during the week. Metolazone has been discontinued. At discharge she will continue with a 1500 cc per day fluid restriction and low-salt diet. At discharge patient will continue with Lasix 80 mg 1 pill twice daily and Aldactone 25 mg 1 pill twice daily. Metolazone has been discontinued in favor for Aldactone. She is to monitor her weight daily. If her weight increases by more than 5 lb she is to contact her PCP for further instruction. CHF education will be provided. Patient will continue with incentive spirometer. Patient will continue with home oxygen to maintain sats above 90%. Patient has COPD. This remained stable during her stay. Patient will continue with Breo 1 puff once daily and albuterol nebs 1 unit dose 3 times a day as needed for shortness of breath. Patient will continue with home oxygen to maintain sats above 90%. Patient will need to follow up with pulmonology as an outpatient to further monitor and address. Patient has GERD. Patient continue with Protonix 40 mg 1 pill once daily. Patient has chronic lymphedema. She will continue with fluid restriction and medications as recommended above. Patient may benefit with referral to lymphedema clinic to consider wrappings. This can be further addressed by her PCP. Patient has hypertension. Medications have been adjusted. Patient will no longer take atenolol or hydralazine. New medication carvedilol 3.125 mg 1 pill twice daily has been added. Blood pressure stable. At discharge patient will continue with carvedilol 3.125 mg 1 pill twice daily. Recommendation is to maintain blood pressures less 150/80. Further adjustment can be done by his PCP. Patient has depression with anxiety. Patient will continue with Celexa 20 mg 1 pill once daily and Xanax 0.25 mg 1 pill twice daily as needed. Further adjustment can be done by her PCP. Vital Signs/Physical Exam: Temp Pulse Resp BP Pulse Ox 96.9 F 66 20 135/65 96 09/30/17 04:00 09/30/17 06:26 09/30/17 04:00 09/30/17 06:26 09/30/17 04:00 General: Alert, In no apparent distress, Oriented x3, Cooperative HEENT: Atraumatic, Normocephalic, PERRLA, Mucous membr. moist/pink Neck: Supple Respiratory: Clear to auscultation bilaterally, Normal air movement Cardiovascular: Normal pulses, Regular rate/rhythm Gastrointestinal: Normal bowel sounds, Soft and benign, Non-distended, No tenderness, No masses, No rebound, No guarding Musculoskeletal: No erythema, No tenderness, No warmth Integumentary: No tenderness/swelling, No erythema, No warmth, No cyanosis Neurological: Normal speech, Normal strength at 5/5 x4 extr, Normal tone, Normal affect Lymphatics: No axilla or inguinal lymphadenopathy Laboratory Data at Discharge: WBC 11.9 K/uL (4.3-10.9) H D 09/30/17 04:53 Hgb 11.2 g/dL (12.0-15.0) L 09/30/17 04:53 Hct 35.6 % (36.0-45.0) L 09/30/17 04:53 Plt Count 267 K/uL (152-406) 09/30/17 04:53 PT 12.8 SECONDS (9.5-12.5) H 09/28/17 16:40 INR 1.08 09/28/17 16:40 APTT 29.2 SECONDS (24.3-36.9) 09/28/17 16:40 Sodium 141 mmol/L (136-145) 09/30/17 04:53 Potassium 3.8 mmol/L (3.5-5.1) 09/30/17 04:53 BUN 28 mg/dL (7-18) H 09/30/17 04:53 Creatinine 0.70 mg/dL (0.55-1.3) 09/30/17 04:53 Glucose 116 mg/dL (74-106) H 09/30/17 04:53 Magnesium 2.3 mg/dL (1.8-2.4) 09/30/17 04:53 Total Bilirubin 1.0 mg/dL (0.2-1.0) 09/28/17 16:40 AST 28 U/L (15-37) 09/28/17 16:40 ALT 25 U/L (12-78) 09/28/17 16:40 Alkaline Phosphatase 66 U/L (45-117) 09/28/17 16:40 Troponin I < 0.02 ng/mL (0.0-0.045) 09/29/17 07:33 Triglycerides 33 mg/dL (<150) 09/29/17 04:46 Cholesterol 182 mg/dL (<200) 09/29/17 04:46 HDL Cholesterol 72 mg/dL (40-60) H 09/29/17 04:46 Cholesterol/HDL Ratio 2.53 09/29/17 04:46 Home Medications: ALPRAZolam [Xanax*] 0.25 mg PO BIDP PRN 09/16/15 Citalopram [Celexa*] 20 mg PO DAILY 09/16/15 Furosemide [Lasix] 80 mg PO BID 09/16/15 Albuterol Sulfate [Albuterol Sulfate 0.083% Neb Soln] 1 puff IH QID 06/10/16 Fluticasone/Vilanterol [Breo Ellipta 200-25 Mcg INH] 1 puff IH DAILY 06/10/16 Pantoprazole [Protonix Tab*] 40 mg PO DAILY #30 tab 06/12/16 traMADol HCL [Ultram*] 50 mg PO Q8HP PRN #30 tab 06/12/16 Carvedilol [Coreg*] 3.125 mg PO BID 6AM 6PM #60 tab 09/30/17 Spironolactone [Aldactone*] 25 mg PO BID #60 tab 09/30/17 New Medications: Carvedilol [Coreg*] 3.125 mg PO BID 6AM 6PM #60 tab Spironolactone [Aldactone*] 25 mg PO BID #60 tab Patient Discharge Instructions: 1. Patient will need a follow up with her PCP in 1 week to follow up this hospitalization. 2. Patient presented with shortness of breath secondary to acute on chronic diastolic dysfunction-CHF and atelectasis. Patient did well during the course of her stay. Patient received medication for diuresis. Medications have been adjusted. At discharge she will continue with a 1500 cc per day fluid restriction and low-salt diet. At discharge patient will continue with Lasix 80 mg 1 pill twice daily and Aldactone 25 mg 1 pill twice daily. Metolazone has been discontinued in favor for Aldactone. She is to monitor her weight daily. If her weight increases by more than 5 lb she is to contact her PCP for further instruction. CHF education will be provided. Patient will continue with incentive spirometer. Patient will continue with home oxygen to maintain sats above 90%. 3. Patient has COPD. This remained stable. Patient will continue with Breo 1 puff once daily and albuterol nebs 1 unit dose 3 times a day as needed for shortness of breath. Patient will continue with home oxygen to maintain sats above 90%. Patient will need to follow up with pulmonology as an outpatient to further monitor and address. 4. Patient has GERD. Patient continue with Protonix 40 mg 1 pill once daily. 5. Patient has chronic lymphedema. She will continue with fluid restriction as recommended above. She will continue with diuretic therapy as above. Patient may benefit with referral to lymphedema clinic to consider wrappings. This can be further addressed by her PCP. 6. Patient has hypertension. Medications have been adjusted. Patient was low longer take atenolol or hydralazine. New medication carvedilol 3.125 mg 1 pill twice daily has been added. Blood pressure stable. At discharge patient will continue with carvedilol 3.125 mg 1 pill twice daily. Recommendation is to maintain blood pressures less 150/80. Further adjustment can be done by his PCP. 7. Patient has depression with anxiety. Patient will continue with Celexa 20 mg 1 pill once daily and Xanax 0.25 mg 1 pill twice daily as needed. Further adjustment can be done by her PCP. Diet: AHA Activity: Fall precautions Time spent managing pt's care (in minutes): 55
[2017-09-30 08:25] VITALS: O2SAT 94
[2017-09-30 09:47] VITALS: BP 133/66; TEMP 96.8
[2017-09-30] MEDS: CITALOPRAM 10 MG TABLET PO SCH (09:55)
[2017-09-30] MEDS: SPIRONOLACTONE 25 MG TABLET PO SCH (09:55)
[2017-09-30] MEDS: ENOXAPARIN 40 MG/0.4 ML SQ SCH (09:56)
[2017-09-30] MEDS: FUROSEMIDE 40 MG/4 ML VIAL IV SCH (09:56)
== END 2017-09-30 11:10 | disposition home health service (06) | DRG 292 ==
LOC: ER 13:40 → ERHOLD 16:34 → 2ND 20:15
PROVIDERS: ADMIT Family Medicine; ATTEND Family Medicine
DX: I11.0 Hypertensive heart disease with heart failure (principal); E66.2 Morbid (severe) obesity with alveolar hypoventilation; J98.11 Atelectasis; Z68.43 Body mass index [BMI] 50.0-59.9, adult; I50.33 Acute on chronic diastolic (congestive) heart failure; J44.9 Chronic obstructive pulmonary disease, unspecified; Z99.81 Dependence on supplemental oxygen; F41.8 Other specified anxiety disorders; K21.9 Gastro-esophageal reflux disease without esophagitis; I89.0 Lymphedema, not elsewhere classified; R09.02 Hypoxemia; Z77.22 Contact with and (suspected) exposure to environmental tobacco smoke (acute) (chronic); Z91.19 Patient's noncompliance with other medical treatment and regimen
CPT/HCPCS: 36415; 71046; 71275; 80048; 80061; 80076; 81003; 82550; 82553; 83735; 83880; 84145; 84439; 84443; 84484; 85025; 85610; 85730; 87040; 93005; 93306; 94640; 96365; 96366; 96375; 97163; 99285; J1650; J2930; J7030; J7605; Q9967

== ENCOUNTER 2017-10-20 10:21 | Emergency (ER) | payer OTHER ==
--- OUTSIDE RECORDS SUMMARY | 2017-10-20 10:25 | XMS REPORT ---
:1960 Author Organization [employer] Care Team Providers Name Role Phone Chuy Perez Provider Role Unavailable Allergies, Adverse Reactions, Alerts Substance Reaction Event Type N.K.D.A. Info Not Available Non Drug Allergy Problems Problem Type Condition Code Onset Dates Condition Status Problem Hyperlipidemia, mixed E78.2 Active Problem Depression with anxiety F41.8 Active Problem Gastro-esophageal reflux disease K21.9 Active without esophagitis Problem Chronic diastolic heart failure I50.32 Active Assessment Lymphedema I89.0 Active Problem O2 dependent Z99.81 Active Assessment Back pain M54.9 Active Assessment Gastro-esophageal reflux disease K21.9 Active without esophagitis Problem DNR (do not resuscitate) Z66 Active Problem Lymphedema I89.0 Active Problem Shingles B02.9 Active Problem 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 Problem Back pain M54.9 Active Assessment DNR (do not resuscitate) Z66 Active Assessment Benign essential HTN I10 Active Assessment Depression with anxiety F41.8 Active Assessment Hyperlipidemia, mixed E78.2 Active Problem Benign essential HTN I10 Active Assessment Chronic bronchitis with COPD J44.9 Active (chronic obstructive pulmonary disease) Problem Chronic bronchitis with COPD J44.9 Active (chronic obstructive pulmonary disease) Assessment O2 dependent Z99.81 Active Assessment Chronic diastolic heart failure I50.32 Active Problem Allergic rhinitis, seasonal J30.2 Active Medications Medication Code Code Instructions Start End Status Dosage System Date HydrALAZINE HCl ND 56966806686 25 MG Orally Active 1 tablet Three times a with food day Vitamin B12 ND 65985972236 1000 MCG Orally Active 1 tablet Once a day Spironolactone ND 71428396389 25 MG Orally Oct Active 1 tablet Twice a day with food 2017 Carvedilol ND 78442217403 3.125 MG Orally Active as BID directed Klor-Con M10 ND 98344172744 10 MEQ Orally Inactive 1 tablet Twice a day with food Cozaar ND 53929862680 50 MG Orally Active 1 tablet Once a day Citalopram [facility] 96369242380 40 MG Orally Active 1 tablet Hydrobromide Once a day Furosemide ND 86154968706 80 MG Orally Active 1 tablet Twice a day Breo Ellipta [facility] 73400071516 100-25 MCG/INH Apr Active 1 puff Inhalation Once 08, a day 2018 Atenolol [facility] 35450714748 50 MG Orally Inactive 1 tablet Once a day -81 [facility] [place] 32869673946 81 MG Orally Active 1 tablet Once a day Pantoprazole [facility] 64182448982 40 MG Orally Active 1 tablet Sodium Once a day Metolazone [facility] 67921494136 2.5 MG Orally Inactive 1 tablet M, W, F. Take 30 minutes before taking alsix in AM. Ultram [facility] 53012449835 50 MG Orally Apr Active 1 tablet once a day as 08, as needed needed 2018 Alprazolam [facility] 48313787615 0.25 MG Orally Active 1 tablet Twice a day PRN SEVERE ANXIETY Ventolin HFA [facility] 01227189832 108 (90 Base) Active 2 puffs as MCG/ACT needed Inhalation every 6 hrs Results No Known Results Summary Purpose [employer] Submission
--- OUTSIDE RECORDS SUMMARY | 2017-10-20 10:25 | XMS REPORT ---
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
--- OUTSIDE RECORDS SUMMARY | 2017-10-20 10:25 | XMS REPORT ---
[...] Start Date End Date Status Dosage Furosemide [facility] 29681840337 80 MG Orally Active 1 tablet Twice a day Results No Known Results Summary Purpose [employer] Submission
--- OUTSIDE RECORDS SUMMARY | 2017-10-20 10:25 | XMS REPORT | Clinical Summary ---
:1960 Author Organization [facility] Address [address] [place] [address] Care Team Providers Name Role Phone Asked, [...] 1 tablet (600 60 tablet 0 09/26/2016 10/26/2016 (MUCINEX) 600 mg mg total) by mouth tablet extended 2 (two) times a release 12hr day for 30 days. fluticasone 2 sprays (100 mcg 15.8 mL 0 09/26/2016 10/26/2016 (FLONASE) 50 total) by Each mcg/actuation nasal Nare route daily spray for 30 days. nystatin Apply topically 2 240 g 0 09/26/2016 10/26/2016 (MYCOSTATIN) 100,000 (two) times a day unit/gram powder for 30 days. albuterol (PROAIR Inhale 2 puffs 18 g 11 09/26/2016 10/26/2016 HFA,PROVENTIL every 6 (six) HFA,VENTOLIN HFA) 90 hours as needed mcg/actuation [...] Not on file Results Not on fileafter 10/19/2016 Insurance Payer Benefit Plan / Group Subscriber ID Type Phone Address [employer] MEDICARE AETNA MEDICARE HMO/PPO [facility] xxxxxxxx HMO
--- OUTSIDE RECORDS SUMMARY | 2017-10-20 10:25 | XMS REPORT ---
[...] End Status Dosage System Date Date Metolazone [facility] 35789926709 2.5 MG Orally M, Active 1 tablet W, F. Take 30 minutes before taking alsix in AM. Ventolin HFA [facility] 16394595687 108 (90 Base) Active 2 puffs MCG/ACT as needed Inhalation every 6 hrs -81 ND 84489884902 81 MG Orally Active 1 tablet Once a day Ultram [facility] 65390361474 50 MG Orally Sept Active 1 tablet once a day as 24, as needed needed 2017 Furosemide ND 44668192012 80 MG Orally Active 1 tablet Once a day Breo Ellipta ND 63162016198 100-25 MCG/INH Sept Active 1 puff Inhalation Once 24, a day 2017 Pantoprazole ND 83027859937 40 MG Orally Active 1 tablet Sodium Once a day Atenolol [facility] 65324772719 50 MG Orally Active 1 tablet Once a day Klor-Con M10 [facility] 50232689764 10 MEQ Orally Active 1 tablet Twice a day with food Alprazolam [facility] 46222207038 0.25 MG Orally Active 1 tablet Twice a day HydrALAZINE HCl [facility] 41974976767 25 MG Orally Active 1 tablet Three times a with food day Cozaar [facility] 81510256337 50 MG Orally Active 1 tablet Once a day Citalopram [facility] 86771311373 40 MG Orally Active 1 tablet Hydrobromide Once a day Results No Known Results Summary Purpose [employer] Submission
--- NOTE | 2017-10-20 10:55 | EDPHYS ---
Physician Documentation [facility] Name: Gaye Castro Age: 56 yrs Sex: Female : 1960 Arrival Date: 10/20/2017 Time: 10:24 Bed 15 Private MD: Chuy [facility] ED Physician Gamal Beaulieu HPI: 10/20 10:45 This 56 yrs old Female presents to ER via Ambulatory with complaints of Arm gs Pain. 10:45 The patient or guardian complains of pain, that is acute. The complaints affect the gs anterior aspect of left shoulder. Context: The problem was sustained at a store, resulted from vaccination injection. Onset: The symptoms/episode began/occurred yesterday. Associated signs and symptoms: Pertinent negatives: erythema, fever. Severity of symptoms: At their worst the symptoms were mild, in the emergency department the symptoms are unchanged. 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 N/A - Post-menopause hj Historical: - Allergies: 10:30 No Known Allergies; hj - Home Meds: 10:30 Advair Diskus 100-50 mcg/dose Inhl dsdv 1 puff 2 times per day [Active]; albuterol hj sulfate 2.5 mg/0.5 mL Inhl nebu 0.5 mL 4 times per day [Active]; alprazolam 0.25 mg Oral tab 1 tab once a day [Active]; Apresoline Oral 25 mg twice a day [Active]; Breo Ellipta inhalation 1 puff once daily [Active]; citalopram 20 mg tab 1 tab once daily [Active]; hydralazine 25 mg Oral tab 1 tab 2 times per day [Active]; Lasix 80 mg Oral tab 1 tab once daily [Active]; pantoprazole 40 mg Oral TbEC 1 tab once daily [Active]; tramadol 50 mg Oral tab as needed [Active]; Ventolin Rotahaler/Rotacaps 90 Inhl 90 mcg four times a day [Active]; losartan 50 mg oral tab 1 tab once daily [Active]; - PMHx: 10:30 Anxiety; CHF; COPD; Depression; Hypertension; hypoxia; lymphedema; Pneumonia; Sleep hj Apnea; small heart and lungs; uses home o2; - PSHx: 10:30 None; hj - Immunization history:: Adult Immunizations up to date. - Social history:: Smoking status: Patient/guardian denies using tobacco, Patient/guardian denies using alcohol. - Ebola Screening: : Patient negative for fever greater than or equal to 101.5 degrees Fahrenheit, and additional compatible Ebola Virus Disease symptoms Patient denies exposure to infectious person Patient denies travel to an Ebola-affected area in the 21 days before illness onset. ROS: 10:45 All other systems are negative. gs Exam: 10:45 Constitutional: The patient appears in no acute distress, alert, awake. gs 10:45 Cardiovascular: Exam negative for acute changes. 10:45 Respiratory: Exam negative for acute changes. 10:45 Musculoskeletal/extremity: Extremities: noted in the anterior aspect of left shoulder: tenderness, ROM: no acute changes, full active range of motion, Pulses: are normal with no appreciated deficits, Sensation intact. 10:45 Skin: Exam negative for cellulitis. Vital Signs: 10:31 BP 104 / 79; Pulse 75; Resp 18; Temp 97.9(O); Pulse Ox 93% on 4 lpm NC; Weight 128.37 hj kg; Height 5 ft. 0 in. (152.40 cm); Pain 9/10; 10:31 Body Mass Index 55.27 (128.37 kg, 152.40 cm) hj MDM: 10:45 Patient medically screened. gs 10:45 Data reviewed: vital signs, nurses notes. gs Administered Medications: No medications were administered Disposition: 10/20/17 10:53 Discharged to Home. Impression: Complications following infusion, transfusion and therapeutic injection. - Condition is Stable. - Discharge Instructions: Post-Injection Inflammatory Reaction. - Medication Reconciliation Form, Thank You Letter, Antibiotic Education, Prescription Opioid Use form. - Follow up: Private Physician; When: 2 - 3 days; Reason: Re-evaluation by your physician. Signatures: Samira Delacruz RN RN aj Joaquin, Henry, RN RN hj Starr, Gregory, MD MD gs Corrections: (The following items were deleted from the chart) 11:01 10:53 10/20/2017 10:53 Discharged to Home. Impression: Complications following aj infusion, transfusion and therapeutic injection. Condition is Stable. Forms are Medication Reconciliation Form, Thank You Letter, Antibiotic Education, Prescription Opioid Use. Follow up: Private Physician; When: 2 - 3 days; Reason: Re-evaluation by your physician. gs
--- NOTE | 2017-10-20 10:55 | ER ---
Nurse's Notes [facility] Name: Gaye Castro Age: 56 yrs Sex: Female : 1960 Arrival Date: 10/20/2017 Time: 10:24 Bed 15 Private MD: Perez Vera Diagnosis: Complications following infusion, transfusion and therapeutic injection Presentation: 10/20 10:25 Presenting complaint: Patient states: i have my Shingle shot last night at [facility] at my L arm and i felt pain and tingling on my L arm and felt warm too; pain is 9/10; took tramadol around 3:30am;. Transition of care: patient was not received from another setting of care. Onset of symptoms was October 20, 2017. Risk Assessment: Do you want to hurt yourself or someone else? Patient reports no desire to harm self or others. Initial Sepsis Screen: Does the patient meet any 2 criteria? No. Patient's initial sepsis screen is negative. Does the patient have a suspected source of infection? No. Patient's initial sepsis screen is negative. Care prior to arrival: None. 10:25 Method Of Arrival: Ambulatory 10:25 Acuity: DEBBY 4 Triage Assessment: 10:30 General: Appears in no apparent distress. uncomfortable, Behavior is calm, cooperative, hj appropriate for age. Pain: Complains of pain in left arm. DEVELOPMENT INTERN: 10:31 LMP N/A - Post-menopause Historical: - Allergies: 10:30 No Known Allergies; hj - Home Meds: 10:30 Advair Diskus 100-50 mcg/dose Inhl dsdv 1 puff 2 times per day [Active]; albuterol hj sulfate 2.5 mg/0.5 mL Inhl nebu 0.5 mL 4 times per day [Active]; alprazolam 0.25 mg Oral tab 1 tab once a day [Active]; Apresoline Oral 25 mg twice a day [Active]; Breo Ellipta inhalation 1 puff once daily [Active]; citalopram 20 mg tab 1 tab once daily [Active]; hydralazine 25 mg Oral tab 1 tab 2 times per day [Active]; Lasix 80 mg Oral tab 1 tab once daily [Active]; pantoprazole 40 mg Oral TbEC 1 tab once daily [Active]; tramadol 50 mg Oral tab as needed [Active]; Ventolin Rotahaler/Rotacaps 90 Inhl 90 mcg four times a day [Active]; losartan 50 mg oral tab 1 tab once daily [Active]; - PMHx: 10:30 Anxiety; CHF; COPD; Depression; Hypertension; hypoxia; lymphedema; Pneumonia; Sleep hj Apnea; small heart and lungs; uses home o2; - PSHx: 10:30 None; hj - Immunization history:: Adult Immunizations up to date. - Social history:: Smoking status: Patient/guardian denies using tobacco, Patient/guardian denies using alcohol. - Ebola Screening: : Patient negative for fever greater than or equal to 101.5 degrees Fahrenheit, and additional compatible Ebola Virus Disease symptoms Patient denies exposure to infectious person Patient denies travel to an Ebola-affected area in the 21 days before illness onset. Screenin:30 Abuse screen: Denies threats or abuse. Denies injuries from another. Nutritional hj screening: No deficits noted. Tuberculosis screening: No symptoms or risk factors identified. Fall Risk None identified. Assessment: 10:43 General: Appears in no apparent distress. comfortable, obese, Behavior is calm, aj cooperative, appropriate for age. Neuro: Level of Consciousness is awake, alert, obeys commands, Oriented to person, place, time, situation, Appropriate for age. Respiratory: Airway is patent Respiratory effort is even, unlabored, Respiratory pattern is regular, symmetrical. Derm: Skin is intact, is healthy with good turgor, Skin is pink, warm \T\ dry. normal. Musculoskeletal: Reports pain in anterior aspect of left shoulder and left bicep. Vital Signs: 10:31 BP 104 / 79; Pulse 75; Resp 18; Temp 97.9(O); Pulse Ox 93% on 4 lpm NC; Weight 128.37 hj kg; Height 5 ft. 0 in. (152.40 cm); Pain 9/10; 10:31 Body Mass Index 55.27 (128.37 kg, 152.40 cm) ED Course: 10:24 Patient arrived in ED. mr 10:24 Perez Vera DO is Private Physician. mr 10:27 Triage completed. hj 10:30 Arm band placed on right wrist. hj 10:31 Patient has correct armband on for positive identification. Bed in low position. Call hj light in reach. Side rails up X 1. Adult w/ patient. 10:34 Gamal Beaulieu MD is Attending Physician. 10:43 Samira Delacruz, RN is Primary Nurse. aj 10:43 No provider procedures requiring assistance completed. Patient did not have IV access aj during this emergency room visit. Administered Medications: No medications were administered Outcome: 10:43 Discharged to home ambulatory. aj 10:43 Condition: good 10:43 Discharge instructions given to patient, Instructed on discharge instructions, follow up and referral plans. Demonstrated understanding of instructions, follow-up care. 10:53 Discharge ordered by . 11:01 Patient left the ED. aj Signatures: Samira Delacruz, RN RN Laura Hussein Henry RN MARIANNE Gamal Beaulieu MD MD Corrections: (The following items were deleted from the chart) 10:33 10:31 Pulse 75bpm; Resp 18bpm; Pulse Ox 93% 4 lpm Nasal Cannula; Temp 97.9F Oral; hj 128.37 kg; Height 5 ft. 0 in.; BMI: 55.2; Pain 9/10; hj
[2017-10-20 11:05] VITALS: BP 104/79; TEMP 97.9; O2SAT 93
== END 2017-10-20 11:01 | disposition home or self-care (01) ==
LOC: ER 10:21
DX: T80.89XA Other complications following infusion, transfusion and therapeutic injection, initial encounter (principal); I11.0 Hypertensive heart disease with heart failure; I50.9 Heart failure, unspecified; J44.9 Chronic obstructive pulmonary disease, unspecified; Y84.9 Medical procedure, unspecified as the cause of abnormal reaction of the patient, or of later complication, without mention of misadventure at the time of the procedure; Y92.9 Unspecified place or not applicable
CPT/HCPCS: 99281

== ENCOUNTER 2018-01-11 17:53 | Inpatient (IN) | payer OTHER ==
--- OUTSIDE RECORDS SUMMARY | 2018-01-11 17:56 | XMS REPORT ---
[...] Start Date End Date Status Dosage Furosemide [facility] 07081534677 80 MG Orally Active 1 tablet Twice a day Results No Known Results Summary Purpose [employer]'s One Stop SaloninicalMinimally invasive devices Submission
--- OUTSIDE RECORDS SUMMARY | 2018-01-11 17:56 | XMS REPORT ---
[...] Status Dosage System Date HydrALAZINE HCl ND 30356942539 25 MG Orally Active 1 tablet Three times a with food day Vitamin B12 ND 50946901188 1000 MCG Orally Active 1 tablet Once a day Spironolactone ND 18168219541 25 MG Orally Oct Active 1 tablet Twice a day with food 2017 Carvedilol ND 43922352765 3.125 MG Orally Active as BID directed Klor-Con M10 ND 13285005829 10 MEQ Orally Inactive 1 tablet Twice a day with food Cozaar ND 56828061604 50 MG Orally Active 1 tablet Once a day Citalopram [facility] 11327127598 40 MG Orally Active 1 tablet Hydrobromide Once a day Furosemide ND 89858439507 80 MG Orally Active 1 tablet Twice a day Breo Ellipta [facility] 36766749657 100-25 MCG/INH Apr Active 1 puff Inhalation Once 08, a day 2018 Atenolol [facility] 25873901371 50 MG Orally Inactive 1 tablet Once a day -81 [facility] 40653207566 81 MG Orally Active 1 tablet Once a day Pantoprazole [facility] 62232301576 40 MG Orally Active 1 tablet Sodium Once a day Metolazone [facility] 95807620443 2.5 MG Orally Inactive 1 tablet M, W, F. Take 30 minutes before taking alsix in AM. Ultram [facility] 14492679658 50 MG Orally Apr Active 1 tablet once a day as 08, as needed needed 2018 Alprazolam [facility] 50769279584 0.25 MG Orally Active 1 tablet Twice a day PRN SEVERE ANXIETY Ventolin HFA [facility] 38013644204 108 (90 Base) Active 2 puffs as MCG/ACT needed Inhalation every 6 hrs Results No Known Results Summary Purpose eClinicalWorks Submission
--- OUTSIDE RECORDS SUMMARY | 2018-01-11 17:56 | XMS REPORT | Clinical Summary ---
:1960 Author Organization [facility] Address [address] [place] [address] Care Team Providers Name Role Phone Asked, No Pcp Primary Care Provider Unavailable Allergies No Known Allergies Current Medications Prescription Sig. Disp. Refills Start Date End Date Status traMADol (ULTRAM) 50 mg Take 50 mg by mouth Active tablet every 6 (six) hours as needed for moderate pain. furosemide (LASIX) 80 Take 80 mg by mouth 3 Active mg tablet (three) times a day. atenolol (TENORMIN) 50 Take 50 mg by mouth Active MG tablet daily. hydrALAZINE Take 25 mg by mouth 2 Active (APRESOLINE) 25 MG (two) times a day. tablet ALPRAZolam (XANAX) 0.25 Take 0.25 mg by mouth Active MG tablet nightly as needed for anxiety. potassium chloride Take 20 mEq by mouth Active (K-DUR,KLOR-CON) 10 MEQ 3 (three) times a CR tablet day. citalopram (CeleXA) 20 Take 20 mg by mouth Active MG tablet daily. pantoprazole (PROTONIX) Take 40 mg by mouth Active 40 MG EC tablet daily. cyanocobalamin 1000 MCG Take 1,000 mcg by Active tablet mouth daily. ascorbic acid, vitamin Take 500 mg by mouth Active C, (VITAMIN C) 500 MG daily. tablet fluticasone-salmeterol Inhale 1 puff 2 (two) Active (ADVAIR) 100-50 times a day. mcg/dose DISKUS albuterol (PROVENTIL) Take 2.5 mg by Active 2.5 mg /3 mL (0.083 %) nebulization 4 (four) nebulizer solution times a day. Active Problems Problem Noted Date CHF (congestive heart failure) ([facility]) 09/22/2016 Chronic obstructive pulmonary disease with acute exacerbation (HCC) 09/22/2016 Lymphedema 09/22/2016 Essential hypertension 09/22/2016 Social History Tobacco Use Types Packs/Day Years Used Date Never Assessed Sex Assigned at Date Recorded Not on file Last Filed Vital Signs Not on file Plan of Treatment Not on file Results Not on fileafter 01/10/2017 Insurance Payer Benefit Plan / Group Subscriber ID Type Phone Address A[employer]NA MEDICARE AETNA MEDICARE HMO/PPO [facility] xxxxxxxx O
--- OUTSIDE RECORDS SUMMARY | 2018-01-11 17:56 | XMS REPORT ---
[...] End Status Dosage System Date Date Metolazone [facility] 41093594690 2.5 MG Orally M, Active 1 tablet W, F. Take 30 minutes before taking alsix in AM. Ventolin HFA [facility] 67365843688 108 (90 Base) Active 2 puffs MCG/ACT as needed Inhalation every 6 hrs -81 ND 53209074948 81 MG Orally Active 1 tablet Once a day Ultram [facility] 11159566678 50 MG Orally Sept Active 1 tablet once a day as 24, as needed needed 2017 Furosemide ND 20123093149 80 MG Orally Active 1 tablet Once a day Breo Ellipta ND 17706250524 100-25 MCG/INH Sept Active 1 puff Inhalation Once 24, a day 2017 Pantoprazole ND 48521410148 40 MG Orally Active 1 tablet Sodium Once a day Atenolol [facility] 37234040588 50 MG Orally Active 1 tablet Once a day Klor-Con M10 [facility] 57677808323 10 MEQ Orally Active 1 tablet Twice a day with food Alprazolam [facility] 69559698997 0.25 MG Orally Active 1 tablet Twice a day HydrALAZINE HCl [facility] 55593227541 25 MG Orally Active 1 tablet Three times a with food day Cozaar [facility] 82303766939 50 MG Orally Active 1 tablet Once a day Citalopram [facility] 17008984819 40 MG Orally Active 1 tablet Hydrobromide Once a day Results No Known Results Summary Purpose eClinicalWorks Submission
--- NOTE | 2018-01-11 19:24 | RAD REPORT ---
EXAM DESCRIPTION: RAD - Chest Single View - 01/11/2018 7:04 pm CLINICAL HISTORY: Cough;Dyspnea COMPARISON: CR; Chest 09/29/2017; . TECHNIQUE: AP portable chest image was obtained 1859 hours . FINDINGS: Interstitial stranding is present throughout the mid and lower lung bowman in a pattern si milar to September imaging. This is chronic atelectasis or scarring. No significant failure or volume over load findings. Mild cardiomegaly is stable. Trachea is midline. IMPRESSION: No acute cardiopulmonary process. Chronic scarring or atelectasis in the mid and lower lung bowman similar to [place].
[2018-01-11 19:25] LABS: Absolute Lymphocytes (CBC) 1.8 K/uL (0.7-4.9); Absolute Monocytes 0.6 K/uL (0.1-1.3); Absolute Neutrophil 4.6 K/uL (1.8-8.0); Basophils % 0.4 % (0-1.3); Eosinophils % 3.4 % (0-4.4); Hematocrit 35.5 % (36.0-45.0); Lymphocytes % 24.4 % (15.3-44.8); MCV 88.5 fL (80-100); MPV 8.2 fL (7.6-11.3); Protime INR 1.08; RBC Red Blood Cell Count 4.01 M/uL (3.86-4.86)
[2018-01-11 19:30] LABS: ALT/SGPT 41 U/L (12-78); AST/SGOT 31 U/L (15-37); Albumin 3.3 g/dL (3.4-5.0); Alkaline Phosphatase 79 U/L (45-117); BUN Blood Urea Nitrogen 14 mg/dL (7-18); Bicarbonate 30 mmol/L (21-32); Bilirubin Direct 0.2 mg/dL (0-0.2); Bilirubin Total 0.8 mg/dL (0.2-1.0); Glucose Level 100 mg/dL (74-106); Lipase 113 U/L (73-393); Magnesium 2.5 mg/dL (1.8-2.4); NT PRO-BNP 112 pg/mL (<125); Potassium 3.9 mmol/L (3.5-5.1); Protein, Total 8.3 g/dL (6.4-8.2); Sodium Level 139 mmol/L (136-145); Troponin (Emerg Dept Use Only) < 0.02 ng/mL (0.0-0.045)
[2018-01-11] MEDS ORDERED: Levofloxacin500mg IV 500 MG/100 ML BAG IV ONE (19:52)
[2018-01-11] MEDS ORDERED: FUROSEMIDE 40 MG/4 ML VIAL ONE (19:52)
[2018-01-11] MEDS ORDERED: METHYLPREDNISOLONE 125 MG INJ ONE (19:52)
[2018-01-11] MEDS ORDERED: LEVALBUTEROL 1.25 MG/3 ML NEB ONE (19:52)
[2018-01-11] MEDS ORDERED: IPRATROPIUM BROM 0.5MG/2.5ML ONE (19:52)
[2018-01-11 20:03] LABS: Urine Blood NEGATIVE (NEG); Urine Glucose NEGATIVE (NEG); Urine Protein NEGATIVE (NEG); Urine Specific Gravity 1.025 (1.005-1.030)
--- NOTE | 2018-01-11 20:06 | EDPHYS ---
Physician Documentation [facility] Name: Gaye Castro Age: 57 yrs Sex: Female : 1960 Arrival Date: 01/11/2018 Time: 17:57 Bed 16 Private MD: [facility] ED Physician Mariano Berg HPI: 01/11 19:30 This 57 yrs old Female presents to ER via Wheelchair with complaints of Fluid rosalind build up, Breathing Difficulty. 19:30 The patient has shortness of breath at rest, with light activity. Onset: The rosalind symptoms/episode began/occurred 14 day(s) ago. Duration: The symptoms are continuous, and are steadily getting worse. The patient's shortness of breath has no apparent modifying factors. Associated signs and symptoms: The patient has no apparent associated signs or symptoms. Severity of symptoms: At their worst the symptoms were mild in the emergency department the symptoms are unchanged despite home interventions. The patient has not experienced similar symptoms in the past. 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: 18:06 LMP N/A - Post-menopause aa5 Historical: - Allergies: 18:06 No Known Allergies; aa5 - Home Meds: 19:38 Advair Diskus 100-50 mcg/dose Inhl dsdv 1 puff 2 times per day [Active]; albuterol ao sulfate 2.5 mg/0.5 mL Inhl nebu 0.5 mL 4 times per day [Active]; alprazolam 0.25 mg Oral tab 1 tab once a day [Active]; Apresoline Oral 25 mg twice a day [Active]; atenolol 50 mg Oral tab 1 tab once daily [Active]; Breo Ellipta inhalation 1 puff once daily [Active]; citalopram 20 mg tab 1 tab once daily [Active]; hydralazine 25 mg Oral tab 1 tab 2 times per day [Active]; Klor-Con M20 20 mEq Oral TbTQ 1 tab once daily [Active]; Lasix 80 mg Oral tab 1 tab once daily [Active]; losartan 50 mg Oral tab 1 tab once daily [Active]; pantoprazole 40 mg Oral TbEC 1 tab once daily [Active]; tramadol 50 mg Oral tab as needed [Active]; Ventolin Rotahaler/Rotacaps 90 Inhl 90 mcg four times a day [Active]; - PMHx: 18:06 Anxiety; CHF; COPD; Depression; Hypertension; hypoxia; lymphedema; Pneumonia; Sleep aa5 Apnea; small heart and lungs; uses home o2; - PSHx: 18:06 None; aa5 - Immunization history:: Flu vaccine is up to date. - Social history:: Smoking status: Patient/guardian denies using tobacco. - Ebola Screening: : No symptoms or risks identified at this time. - Family history:: not pertinent. ROS: 19:30 Constitutional: Negative for fever, chills, and weight loss, Eyes: Negative for injury, rosalind pain, redness, and discharge, ENT: Negative for injury, pain, and discharge, Neck: Negative for injury, pain, and swelling, Abdomen/GI: Negative for abdominal pain, nausea, vomiting, diarrhea, and constipation, Back: Negative for injury and pain, : Negative for injury, bleeding, discharge, and swelling, Skin: Negative for injury, rash, and discoloration, Neuro: Negative for headache, weakness, numbness, tingling, and seizure, Psych: Negative for depression, anxiety, suicide ideation, homicidal ideation, and hallucinations, Allergy/Immunology: Negative for hives, rash, and allergies, Endocrine: Negative for neck swelling, polydipsia, polyuria, polyphagia, and marked weight changes, Hematologic/Lymphatic: Negative for swollen nodes, abnormal bleeding, and unusual bruising. 19:30 Cardiovascular: Positive for orthopnea, palpitations. 19:30 Respiratory: Positive for cough, dyspnea on exertion, shortness of breath, wheezing, inspiratory, expiratory. 19:30 MS/extremity: Positive for decreased range of motion, swelling, tenderness, of the right leg and left leg. Exam: 19:30 Constitutional: This is a well developed, well nourished patient who is awake, alert, rosalind and in no acute distress. Head/Face: Normocephalic, atraumatic. Eyes: Pupils equal round and reactive to light, extra-ocular motions intact. Lids and lashes normal. Conjunctiva and sclera are non-icteric and not injected. Cornea within normal limits. Periorbital areas with no swelling, redness, or edema. ENT: Nares patent. No nasal discharge, no septal abnormalities noted. Tympanic membranes are normal and external auditory canals are clear. Oropharynx with no redness, swelling, or masses, exudates, or evidence of obstruction, uvula midline. Mucous membranes moist. Neck: Trachea midline, no thyromegaly or masses palpated, and no cervical lymphadenopathy. Supple, full range of motion without nuchal rigidity, or vertebral point tenderness. No Meningismus. Chest/axilla: Normal chest wall appearance and motion. Nontender with no deformity. No lesions are appreciated. Cardiovascular: Regular rate and rhythm with a normal S1 and S2. No gallops, murmurs, or rubs. Normal PMI, no JVD. No pulse deficits. Back: No spinal tenderness. No costovertebral tenderness. Full range of motion. Neuro: Awake and alert, GCS 15, oriented to person, place, time, and situation. Cranial nerves II-XII grossly intact. Motor strength 5/5 in all extremities. Sensory grossly intact. Cerebellar exam normal. Normal gait. Psych: Awake, alert, with orientation to person, place and time. Behavior, mood, and affect are within normal limits. 19:30 Respiratory: mild respiratory distress is noted, Respirations: labored breathing, that is mild, Breath sounds: rales, that are mild, that are moderate, are heard in the left posterior lower lobe, right posterior middle lobe and right posterior lower lobe, bronchial sounds, decreased breath sounds, rhonchi, wheezing: inspiratory expiratory 19:30 Abdomen/GI: Inspection: distension, Bowel sounds: active, Palpation: nontender, Liver: no appreciated palpable abnormalities, Hernia: not appreciated. Vital Signs: 18:06 BP 105 / 85; Pulse 82; Resp 20 S; Temp 98.9(TE); Pulse Ox 96% on 4 lpm NC; Weight aa5 140.61 kg (R); Height 5 ft. 0 in. (152.40 cm) (R); 19:39 BP 108 / 82; Pulse 63; Resp 16; Pulse Ox 97% ; ao 20:45 BP 112 / 62; Pulse 82; Resp 16; Pulse Ox 94% ; Pain 0/10; ao 21:45 BP 125 / 61; Pulse 82; Resp 16; Pulse Ox 96% ; Pain 0/10; ao 18:06 Body Mass Index 60.54 (140.61 kg, 152.40 cm) aa5 MDM: 18:28 Patient medically screened. [facility] 19:30 Data reviewed: vital signs, nurses notes, EMS record, lab test result(s), EKG, rosalind radiologic studies, plain films. 10 18:29 Order name: Basic Metabolic Panel; Complete Time: 20:03 [facility] 01/11 18:29 Order name: CBC with Diff; Complete Time: 20:03 [facility] 01/11 18:29 Order name: LFT's; Complete Time: 20:03 [facility] 01/11 18:29 Order name: Magnesium; Complete Time: 20:03 [facility] 01/11 18:29 Order name: NT PRO-BNP; Complete Time: 20:03 [facility] 01/11 18:29 Order name: PT-INR; Complete Time: 20:03 [facility] 01/11 18:29 Order name: Troponin (emerg Dept Use Only); Complete Time: 20:03 [facility] 01/11 18:29 Order name: XRAY Chest (1 view); Complete Time: 20:03 [facility] 01/11 18:29 Order name: Lipase; Complete Time: 20:03 [facility] 01/11 18:29 Order name: Blood Culture Adult (2) [facility] 01/11 18:29 Order name: Procalcitonin; Complete Time: 20:03 [facility] 01/11 18:29 Order name: Urine Culture [facility] 01/11 19:47 Order name: Urine Dipstick--Ancillary (enter results) ms 01/11 20:11 Order name: Echo with Doppler EDMS 01/11 18:29 Order name: EKG; Complete Time: 18:30 [facility] 01/11 18:29 Order name: Cardiac monitoring; Complete Time: 19:18 [facility] 01/11 18:29 Order name: EKG - Nurse/Tech; Complete Time: 19:18 [facility] 01/11 18:29 Order name: IV Saline Lock; Complete Time: 18:57 [facility] 01/11 18:29 Order name: Labs collected and sent; Complete Time: 18:58 [facility] 01/11 18:29 Order name: O2 Per Protocol; Complete Time: 19:06 [facility] 01/11 18:29 Order name: O2 Sat Monitoring; Complete Time: 19:06 [facility] 01/11 18:29 Order name: Urine Dipstick-Ancillary (obtain specimen); Complete Time: 19:47 [facility] 01/11 19:47 Order name: Villela; Complete Time: 19:47 cc Administered Medications: 19:55 Drug: levofloxacin 500 mg Volume: 100 ml; Route: IVPB; Infused Over: 60 mins; Site: ao right antecubital; 21:44 Follow up: IV Status: Completed infusion; IV Intake: 50ml ao 20:00 Drug: AtroVENT Aerosol 0.5 mg Route: Inhalation; ao 21:45 Follow up: Response: No adverse reaction ao 20:05 Drug: Lasix 40 mg Route: IVP; Site: right antecubital; ao 21:44 Follow up: Response: No adverse reaction ao 20:18 Drug: SOLU-Medrol 125 mg Route: IVP; Site: right antecubital; ao 21:45 Follow up: Response: No adverse reaction ao 20:19 Drug: Xopenex 3.75 mg Route: Inhalation; ao 21:45 Follow up: Response: No adverse reaction ao 21:44 Drug: Lovenox 40 mg Route: Sub-Q; Site: abdomen; ao 22:00 Follow up: Response: No adverse reaction ao Disposition: 01/11/18 20:05 Hospitalization ordered by May Levin for Inpatient Admission. Preliminary diagnosis are Dyspnea, Obesity, unspecified, Unspecified combined systolic (congestive) and diastolic (congestive) heart failure, Chronic obstructive pulmonary disease with (acute) exacerbation, Edema, unspecified. - Bed requested for Telemetry/MedSurg (Inpatient). - Status is Inpatient Admission. ao - Condition is Fair. - Problem is new. - Symptoms have improved. UTI on Admission? No Signatures: Dispatcher [employer] EDAngelia Damon RN RN kl Anderson, Corey, MD MD cha Calderon, Audri RN RN aa5 Yamini Perez Alex RN RN ao Corrections: (The following items were deleted from the chart) 21:17 20:05 Hospitalization Ordered by May Levin MD for Inpatient Admission. Preliminary kl diagnosis is Dyspnea; Obesity, unspecified; Unspecified combined systolic (congestive) and diastolic (congestive) heart failure; Chronic obstructive pulmonary disease with (acute) exacerbation; Edema, unspecified. Bed requested for Telemetry/MedSurg (Inpatient). Status is Inpatient Admission. Condition is Fair. Problem is new. Symptoms have improved. UTI on Admission? No. rosalind 22:00 21:17 01/11/2018 20:05 Hospitalization Ordered by May Levin MD for Inpatient ao Admission. Preliminary diagnosis is Dyspnea; Obesity, unspecified; Unspecified combined systolic (congestive) and diastolic (congestive) heart failure; Chronic obstructive pulmonary disease with (acute) exacerbation; Edema, unspecified. Bed requested for Telemetry/MedSurg (Inpatient). Status is Inpatient Admission. Condition is Fair. Problem is new. Symptoms have improved. UTI on Admission? No. kl
--- NOTE | 2018-01-11 20:06 | ER ---
Nurse's Notes [facility] Name: Gaye Castro Age: 57 yrs Sex: Female : 1960 Arrival Date: 01/11/2018 Time: 17:57 Bed 16 Private MD: Perez Vera Diagnosis: Dyspnea;Obesity, unspecified;Unspecified combined systolic (congestive) and diastolic (congestive) heart failure;Chronic obstructive pulmonary disease with (acute) exacerbation;Edema, unspecified Presentation: 01/11 18:04 Presenting complaint: Patient states: SOB on exertion that began 3 week ago. Pt states aa5 "My legs are more swollen". Pt states "I spoke to Dr. Vera and he told me to come to the ER". Transition of care: patient was not received from another setting of care. Onset of symptoms was December 2017. Risk Assessment: Do you want to hurt yourself or someone else? Patient reports no desire to harm self or others. Initial Sepsis Screen: Does the patient meet any 2 criteria? No. Patient's initial sepsis screen is negative. Does the patient have a suspected source of infection? No. Patient's initial sepsis screen is negative. Care prior to arrival: None. 18:04 Method Of Arrival: Wheelchair aa5 18:04 Acuity: DEBBY 3 aa5 Triage Assessment: 19:26 Respiratory: Onset: The symptoms/episode began/occurred gradually, the patient has ao moderate shortness of breath. 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/A - Post-menopause aa5 Historical: - Allergies: 18:06 No Known Allergies; aa5 - Home Meds: 19:38 Advair Diskus 100-50 mcg/dose Inhl dsdv 1 puff 2 times per day [Active]; albuterol ao sulfate 2.5 mg/0.5 mL Inhl nebu 0.5 mL 4 times per day [Active]; alprazolam 0.25 mg Oral tab 1 tab once a day [Active]; Apresoline Oral 25 mg twice a day [Active]; atenolol 50 mg Oral tab 1 tab once daily [Active]; Breo Ellipta inhalation 1 puff once daily [Active]; citalopram 20 mg tab 1 tab once daily [Active]; hydralazine 25 mg Oral tab 1 tab 2 times per day [Active]; Klor-Con M20 20 mEq Oral TbTQ 1 tab once daily [Active]; Lasix 80 mg Oral tab 1 tab once daily [Active]; losartan 50 mg Oral tab 1 tab once daily [Active]; pantoprazole 40 mg Oral TbEC 1 tab once daily [Active]; tramadol 50 mg Oral tab as needed [Active]; Ventolin Rotahaler/Rotacaps 90 Inhl 90 mcg four times a day [Active]; - PMHx: 18:06 Anxiety; CHF; COPD; Depression; Hypertension; hypoxia; lymphedema; Pneumonia; Sleep aa5 Apnea; small heart and lungs; uses home o2; - PSHx: 18:06 None; aa5 - Immunization history:: Flu vaccine is up to date. - Social history:: Smoking status: Patient/guardian denies using tobacco. - Ebola Screening: : No symptoms or risks identified at this time. - Family history:: not pertinent. Screenin:26 Abuse screen: Denies threats or abuse. Denies injuries from another. Nutritional ao screening: No deficits noted. Tuberculosis screening: No symptoms or risk factors identified. Fall Risk None identified. Assessment: 19:24 General: Appears in no apparent distress. comfortable, Behavior is calm, cooperative, ao appropriate for age. Pain: Complains of pain in back. Neuro: Level of Consciousness is awake, alert, obeys commands, Oriented to person, place, time, situation, Appropriate for age Moves all extremities. Full function Speech is normal. Cardiovascular: Capillary refill < 3 seconds Patient's skin is warm and dry. Rhythm is regular. Cardiovascular: Denies chest pain. Respiratory: Airway is patent Trachea midline Respiratory effort is even, unlabored, Breath sounds are diminished. Respiratory: Reports shortness of breath on exertion. GI: Abdomen is obese. : No signs and/or symptoms were reported regarding the genitourinary system. EENT: No signs and/or symptoms were reported regarding the EENT system. Derm: Skin is intact, Skin is pink, warm \\T\\ dry. normal, Skin temperature is warm. Musculoskeletal: Circulation, motion, and sensation intact. Range of motion:. 20:30 Reassessment: Patient appears in no apparent distress at this time. Patient and/or ao family updated on plan of care and expected duration. Pain level reassessed. 21:45 Reassessment: Patient appears in no apparent distress at this time. Patient and/or ao family updated on plan of care and expected duration. Pain level reassessed. Patient to be admitted to the hospital. patient agree with POC. Vital Signs: 18:06 BP 105 / 85; Pulse 82; Resp 20 S; Temp 98.9(TE); Pulse Ox 96% on 4 lpm NC; Weight aa5 140.61 kg (R); Height 5 ft. 0 in. (152.40 cm) (R); 19:39 BP 108 / 82; Pulse 63; Resp 16; Pulse Ox 97% ; ao 20:45 BP 112 / 62; Pulse 82; Resp 16; Pulse Ox 94% ; Pain 0/10; ao 21:45 BP 125 / 61; Pulse 82; Resp 16; Pulse Ox 96% ; Pain 0/10; ao 18:06 Body Mass Index 60.54 (140.61 kg, 152.40 cm) [facility] ED Course: 17:57 Patient arrived in ED. mr 17:58 Perez Vera DO is Private Physician. mr 18:05 Triage completed. [facility] 18:05 Arm band placed on. [facility] 18:27 Mariano Berg MD is Attending Physician. [facility] 18:46 Initial lab(s) drawn, by sd, sent to lab. First set of blood cultures drawn by sd. [facility] 18:55 Inserted saline lock: 22 gauge in right antecubital area, using aseptic technique. [facility] Blood collected. 18:56 Patient has correct armband on for positive identification. Bed in low position. Call [facility] light in reach. Side rails up X2. Adult w/ patient. Warm blanket given. Pulse ox on. NIBP on. 18:56 Lipase Sent. 5 18:57 Basic Metabolic Panel Sent. 5 18:57 Procalcitonin Sent. 5 18:57 CBC with Diff Sent. [facility] 18:57 LFT's Sent. [facility] 18:57 Magnesium Sent. [facility] 18:57 NT PRO-BNP Sent. [facility] 18:57 PT-INR Sent. [facility] 18:57 Troponin (emerg Dept Use Only) Sent. [facility] 19:05 XRAY Chest (1 view) In Process Unspecified. EDMS 19:15 Rylan Ashby, RN is Primary Nurse. ao 19:17 Second set of blood cultures drawn by me. cc 19:18 EKG done, by ED staff, reviewed by Mariano Berg MD. 5 19:19 Blood Culture Adult (2) Sent. 5 19:19 Lipase Sent. [facility] 19:19 Basic Metabolic Panel Sent. 5 19:19 CBC with Diff Sent. 5 19:19 LFT's Sent. 5 19:19 Magnesium Sent. 5 19:19 NT PRO-BNP Sent. 5 19:19 PT-INR Sent. 5 19:19 Troponin (emerg Dept Use Only) Sent. 5 19:40 Villela cath inserted, using sterile technique, 18 Fr., by sd, balloon inflated, urine cc specimen collected. 20:04 May Levin MD is Hospitalizing Provider. rosalind 21:52 No provider procedures requiring assistance completed. Patient admitted, IV remains in ao place. Administered Medications: 19:55 Drug: levofloxacin 500 mg Volume: 100 ml; Route: IVPB; Infused Over: 60 mins; Site: ao right antecubital; 21:44 Follow up: IV Status: Completed infusion; IV Intake: 50ml ao 20:00 Drug: AtroVENT Aerosol 0.5 mg Route: Inhalation; ao 21:45 Follow up: Response: No adverse reaction ao 20:05 Drug: Lasix 40 mg Route: IVP; Site: right antecubital; ao 21:44 Follow up: Response: No adverse reaction ao 20:18 Drug: SOLU-Medrol 125 mg Route: IVP; Site: right antecubital; ao 21:45 Follow up: Response: No adverse reaction ao 20:19 Drug: Xopenex 3.75 mg Route: Inhalation; ao 21:45 Follow up: Response: No adverse reaction ao 21:44 Drug: Lovenox 40 mg Route: Sub-Q; Site: abdomen; ao 22:00 Follow up: Response: No adverse reaction ao Intake: 21:44 IV: 50ml; Total: 50ml. ao Outcome: 20:05 Decision to Hospitalize by Provider. rosalind 21:52 Admitted to Tele accompanied by tech, room 414, Report called to Primary Nurse ao 21:52 Condition: stable 21:52 Instructed on the need for admit. 22:00 Patient left the ED. ao Signatures: Dispatcher [employer] EDMariano Graham MD MD cha Rivera, Lupis Watkins, RN RN aa5 Yamini Perez Alex, RN RN kwame Singletary, [place] [facility]
[2018-01-11] MEDS ORDERED: MAGNESIUM HYDROXIDE 8% 30 ML PO PRN (21:08)
[2018-01-11] MEDS ORDERED: ONDANSETRON 4 MG/2 ML VIAL IV PRN (21:08)
[2018-01-11] MEDS ORDERED: ENOXAPARIN 40 MG/0.4 ML SQ ONE (21:55)
[2018-01-11] MEDS: IPRATROPIUM BROM 0.5MG/2.5ML NEB SCH (22:14)
[2018-01-11] MEDS: ALBUTEROL 2.5 MG/3 ML NEB SOL NEB SCH (22:14)
[2018-01-11] MEDS ORDERED: CARVEDILOL 3.125 MG TAB PO ONE (23:48)
[2018-01-11] MEDS ORDERED: SPIRONOLACTONE 25 MG TABLET PO ONE (23:52)
[2018-01-12] MEDS: METHYLPREDNISOLONE 125 MG INJ IV SCH ×2 (00:14→06:05)
[2018-01-12] MEDS ORDERED: ALPRAZOLAM 0.25 MG TABLET PO PRN (00:20)
[2018-01-12] MEDS ORDERED: TRAMADOL HCL 50 MG TAB PO PRN (00:20)
[2018-01-12] MEDS: ACETAMINOPHEN 500 MG TAB PO PRN ×2 (02:03→22:17)
[2018-01-12] MEDS: ALBUTEROL 2.5 MG/3 ML NEB SOL NEB SCH ×4 (02:21→19:45)
[2018-01-12] MEDS: IPRATROPIUM BROM 0.5MG/2.5ML NEB SCH ×4 (02:22→19:45)
[2018-01-12] MEDS: CARVEDILOL 3.125 MG TAB PO SCH ×2 (06:04→18:02)
[2018-01-12 06:13] LABS: Absolute Lymphocytes (CBC) 0.6 K/uL (0.7-4.9); Absolute Monocytes 0.1 K/uL (0.1-1.3); Absolute Neutrophil 6.6 K/uL (1.8-8.0); Basophils % 0.2 % (0-1.3); Eosinophils % 0.1 % (0-4.4); Hematocrit 35.7 % (36.0-45.0); Lymphocytes % 7.7 % (15.3-44.8); MCH 29.1 pg (27.0-35.0); MCV 88.1 fL (80-100); MPV 8.4 fL (7.6-11.3); Monocytes % 0.7 % (3.3-12.3); RBC Red Blood Cell Count 4.06 M/uL (3.86-4.86)
[2018-01-12 06:31] LABS: Albumin 3.1 g/dL (3.4-5.0); Bilirubin Total 0.6 mg/dL (0.2-1.0); Potassium 4.1 mmol/L (3.5-5.1); Protein, Total 8.1 g/dL (6.4-8.2)
[2018-01-12 07:02] LABS: Blood Morphology Comment NOT SEEN (NOT SEEN); Platelet Estimate ADEQ; Urine White Blood Cell Casts OK
--- NOTE | 2018-01-12 07:34 | EKG ---
Test Date: 2018-01-11 Test Time: 19:15:15 Erecting Engineer: YESENIA MEASUREMENT RESULTS: Intervals: Rate: 75 VT: 236 QRSD: 96 QT: 400 QTc: 446 [place]: P: 40 VT: 236 QRS: 59 T: 15 INTERPRETIVE STATEMENTS: Sinus rhythm with 1st degree AV block Low voltage QRS Nonspecific T wave abnormality Abnormal ECG Compared to ECG 09/28/2017 16:18:11 First degree AV block now present Low QRS voltage now present T-wave abnormality still present Electronically Signed On 01-12-18 07:33:54 CDT by Jai Rincon
[2018-01-12] MEDS ORDERED: ALBUMIN HUMAN 25% 100 ML IV ONE (07:57)
[2018-01-12] MEDS ORDERED: INFLUENZA VACCINE (for 3y+) 0.5 ML DOSE IMVAC ONE ×2 (08:00→22:00)
--- NOTE | 2018-01-12 08:14 | P.HP ---
Certification for Inpatient Patient admitted to: Inpatient With expected LOS: >2 Midnights Patient will require the following post-hospital care: None Practitioner: I am a practitioner with admitting privileges, knowledge of patient current condition, hospital course, and medical plan of care. Services: Services provided to patient in accordance with Admission requirements found in Title 42 Section 412.3 of the Code of Federal Regulations Patient History Date of Service: 01/11/18 Reason for admission: Shortness of breath/chest pain History of Present Illness: Patient is a 57-year-old female came to the hospital with shortness of breath and chest discomfort. Patient has a history of congestive heart failure. She is supposed to follow with her affiliate marketing manager but she has not seen him in over a year. Her echocardiogram in 2016 showed ejection fraction of 60%. She most likely has diastolic dysfunction. She has been taking Lasix twice a day along with Aldactone. However, she states she has gained over 20 lb in the last few weeks. She does not feel like the Lasix is working for her anymore. Her chest x-ray did not show any significant pulmonary edema. She also has some chest discomfort and will get Cardiology for further evaluation. She was admitted to the hospital for inpatient stay to be aggressively diuresed. Allergies No Known Drug Allergies Allergy (Verified 01/11/18 23:11) uncoded Home Medications: Citalopram [Celexa*] 40 mg PO DAILY 09/16/15 Furosemide [Lasix] 80 mg PO BID 09/16/15 Fluticasone/Vilanterol [Breo Ellipta 200-25 Mcg INH] 1 puff IH DAILY 06/10/16 Pantoprazole [Protonix Tab*] 40 mg PO DAILY #30 tab 06/12/16 Carvedilol [Coreg*] 3.125 mg PO BID 6AM 6PM #60 tab 09/30/17 Spironolactone [Aldactone*] 25 mg PO BID #60 tab 09/30/17 ALPRAZolam [Xanax] 0.25 mg PO BID PRN 01/11/18 Albuterol Sulfate [Proair Hfa] 1 puff IH QID 01/11/18 Losartan Potassium [Cozaar] 50 mg PO DAILY 01/11/18 Tramadol HCl [Ultram] 50 mg PO Q4H PRN 01/11/18 - Past Medical/Surgical History Has patient received pneumonia vaccine in the past: Yes Diabetic: No -: HTN -: CHF, diastolic dysfunction -: COPD -: Lymphadema -: Obesity hypoventilation syndrome -: Anxiety -: GERD -: Morbid obesity -: Secondhand smoke exposure -: Depression Psychosocial/ Personal History: Patient lives with her boyfriend - Family History Mother Medical History: Heart disease, Hypertension, Diabetes, Other (see notes) Notes: dementia Sister Medical History: Hypertension - Social History Smoking Status: Never smoker Alcohol use: No CD- Drugs: No Caffeine use: Yes Place of Residence: Home Review of Systems 10-point ROS is otherwise unremarkable Physical Examination - Vital Signs Temperature: 97.9 F Blood Pressure: 141/63 Pulse: 49 Respirations: 20 Pulse Ox (%): 90 - Physical Exam General: Alert, In no apparent distress, Oriented x3, Obese HEENT: Atraumatic, PERRLA, Mucous membr. moist/pink, EOMI, Sclerae nonicteric Neck: Supple, 2+ carotid pulse no bruit, No LAD, Without JVD or thyroid abnormality Respiratory: Crackles/rales Cardiovascular: Regular rate/rhythm, Normal S1 S2, No murmurs Gastrointestinal: Normal bowel sounds, Soft and benign, Non-distended, No tenderness Musculoskeletal: No clubbing, No tenderness, Swelling Integumentary: No rashes, Tenderness/swelling Neurological: Normal gait, Normal speech, Normal strength at 5/5 x4 extr, Normal tone, Sensation intact, Cranial nerves 3-12 intact, Normal affect Lymphatics: No axilla or inguinal lymphadenopathy - Studies Laboratory Data (last 24 hrs) 01/11/18 18:46: PT 12.7 H, INR 1.08 01/11/18 18:46: WBC 7.3, Hgb 11.6 L, Hct 35.5 L, Plt Count 264 01/11/18 18:46: Sodium 139, Potassium 3.9, BUN 14, Creatinine 0.60, Glucose 100 , Magnesium 2.5 H, Total Bilirubin 0.8, AST 31, ALT 41, Alkaline Phosphatase 79 , Lipase 113 Assessment & Plan - Problems (Diagnosis) (1) CHF (congestive heart failure) Onset Date: 09/29/17 Current Visit: No Status: Acute Qualifiers: (2) SOB (shortness of breath) Onset Date: 09/17/15 Current Visit: No Status: Acute (3) HTN (hypertension) Onset Date: 06/11/16 Current Visit: No Status: Chronic Qualifiers: (4) Lymphedema in adult patient Onset Date: 06/11/16 Current Visit: No Status: Chronic (5) Morbid obesity Onset Date: 06/11/16 Current Visit: No Status: Chronic - Plan 1. Echocardiogram 2. Repeat chest x-ray in the morning 3. We will start patient on low dose Beta amita 4. Cardiology consultation 5. Aggressive diuresis 6. Strict I's and O's 7. Repeat CXR 8. Daily weights 9. Education regarding diet and treatment of congestive heart failure Discharge Plan: Home Plan to discharge in: Greater than 2 days - Advance Directives Does patient have a Living Will: Yes Does patient have a Durable POA for Healthcare: Yes - Code Status/Comfort Care Code Status Assessed: Yes Code Status: Full Code Critical Care: No Time Spent Managing PTS Care (In Minutes): 50
[2018-01-12] MEDS ORDERED: HOME MED 1 EA UNK (Fluticasone/Vilanterol [Breo Ellipta 200-25 Mcg Inh] 1 PUFF) IH SCH (09:00)
[2018-01-12] MEDS ORDERED: FUROSEMIDE 40 MG TABLET PO SCH (09:00)
[2018-01-12] MEDS: ALBUTEROL INHALER 60 PUFF/8 GM IH SCH ×2 (09:00→12:00)
[2018-01-12] MEDS: ENOXAPARIN 40 MG/0.4 ML SQ SCH (09:22)
[2018-01-12] MEDS: FUROSEMIDE 40 MG/4 ML VIAL IV SCH ×2 (09:22→16:46)
[2018-01-12] MEDS: CITALOPRAM 10 MG TABLET PO SCH (09:23)
[2018-01-12] MEDS: PANTOPRAZOLE 40MG TABLET PO SCH (09:23)
[2018-01-12] MEDS: SPIRONOLACTONE 25 MG TABLET PO SCH ×2 (09:24→20:31)
[2018-01-12] MEDS: LOSARTAN POTASSIUM 50 MG TABLET PO SCH (09:25)
--- NOTE | 2018-01-12 13:01 | ECHO ---
HEIGHT: 5 ft 0 in WEIGHT: 305 lb 11.2 oz DATE OF STUDY: 01/12/[address]: 2-DIMENSIONAL: YES M.MODE: YES DOPPLER: YES COLOR FLOW: YES TDS: YES PORTABLE: NO DEFINITY: NO BUBBLE STUDY: NO DIAGNOSIS: CONGESTIVE HEART FAILURE CARDIAC HISTORY: CATHERIZATION: NO SURGERY: NO PROSTHETIC VALVE: NO PACEMAKER: NO MEASUREMENTS (cm) DIASTOLIC (NORMALS) SYSTOLIC (NORMALS) IVSd 1.0 (0.6-1.2) LA Diam 3.4 (1.9-4.0) LVEF 69% LVIDd 4.1 (3.5-5.7) LVIDs 2.5 (2.0-3.5) %FS 39% LVPWd 1.0 (0.6-1.2) Ao Diam 2.6 (2.0-3.7) 2 DIMENSIONAL ASSESSMENT: RIGHT ATRIUM: NORMAL LEFT ATRIUM: NORMAL RIGHT VENTRICLE: NORMAL LEFT VENTRICLE: NORMAL TRICUSPID VALVE: NORMAL MITRAL VALVE: NORMAL PULMONIC VALVE: NORMAL AORTIC VALVE: NORMAL PERICARDIAL EFFUSION: NONE AORTIC ROOT: NORMAL LEFT VENTRICULAR WALL MOTION: NORMAL DOPPLER/COLOR FLOW: NORMAL COMMENTS: NORMAL 2D ECHOCARDIOGRAM WITH DOPPLER TECHNOLOGIST: RIANA MIKE
[2018-01-12 20:56] LABS: Urine Appearance CLEAR; Urine Bilirubin NEGATIVE (NEG); Urine Blood 1+ (NEG); Urine Color YELLOW; Urine Glucose NEGATIVE (NEG); Urine Protein NEGATIVE (NEG); Urine Specific Gravity 1.015 (1.005-1.030); Urine Urobilinogen 0.2 mg/dL (0.2-1.0)
[2018-01-12 21:10] LABS: Urine Microscopic Reflex ORDER UMIC
--- NOTE | 2018-01-12 21:17 | P.PN ---
Subjective Date of Service: 01/12/18 Chief Complaint: Shortness of breath/chest pain Subjective: No C/O voiced, Tolerating diet, Improving Patient seen at bedside. Family at bedside. Patient sitting up and eating breakfast without any distress. States breathing is much improved and she is at her baseline home O2 of 4L. Physical Examination - Vital Signs Temperature: 98.9 F Blood Pressure: 117/62 Pulse: 82 Respirations: 19 Pulse Ox (%): 91 - Physical Exam General: Alert, In no apparent distress, Oriented x3 Neck: JVD not distended Respiratory: Clear to auscultation bilaterally, Normal air movement Cardiovascular: No edema, Normal pulses, Regular rate/rhythm, Normal S1 S2 Gastrointestinal: Normal bowel sounds, Soft and benign Musculoskeletal: No clubbing, No swelling Neurological: Normal speech Assessment And Plan - Current Problems (Diagnosis) (1) CHF exacerbation Onset Date: 09/17/15 Current Visit: Yes Status: Acute Plan: Continue diuresis and heart failure medications Cardiology recs appreciated; ECHO pending Strict I&Os, daily weights Qualifiers: Qualified Code(s): I50.33 - Acute on chronic diastolic (congestive) heart failure (2) SOB (shortness of breath) Onset Date: 09/17/15 Current Visit: No Status: Acute Plan: Improving, pt at baseline oxygen requirement of 4 L (3) HTN (hypertension) Onset Date: 06/11/16 Current Visit: No Status: Chronic Plan: Continue home medications Qualifiers: (4) Morbid obesity Onset Date: 06/11/16 Current Visit: No Status: Chronic Discharge Plan: Home Plan to discharge in: 24 Hours
[2018-01-12 21:27] LABS: Urine Bacteria <20 /HPF (<20)
[2018-01-12 21:28] LABS: Urine Culture Reflex Order NOT NEEDED
[2018-01-12] MEDS ORDERED: SPIRONOLACTONE 25 MG TABLET PO ONE (23:47)
[2018-01-13] MEDS: IPRATROPIUM BROM 0.5MG/2.5ML NEB SCH ×2 (01:30→07:48)
[2018-01-13] MEDS: ALBUTEROL 2.5 MG/3 ML NEB SOL NEB SCH ×2 (01:30→07:47)
[2018-01-13] MEDS: CARVEDILOL 3.125 MG TAB PO SCH (05:40)
[2018-01-13] MEDS ORDERED: Fluticasone/Vilanterol (Breo Ellipta) 200-25 Mcg Inh IH SCH (09:00)
[2018-01-13] MEDS: ACETAMINOPHEN 500 MG TAB PO PRN (09:49)
[2018-01-13] MEDS: ENOXAPARIN 40 MG/0.4 ML SQ SCH (09:50)
[2018-01-13] MEDS: FUROSEMIDE 40 MG/4 ML VIAL IV SCH (09:50)
[2018-01-13] MEDS: LOSARTAN POTASSIUM 50 MG TABLET PO SCH (09:51)
[2018-01-13] MEDS: PANTOPRAZOLE 40MG TABLET PO SCH (09:51)
[2018-01-13] MEDS: CITALOPRAM 10 MG TABLET PO SCH (09:51)
[2018-01-13] MEDS: SPIRONOLACTONE 25 MG TABLET PO SCH (09:51)
[2018-01-13 10:00] VITALS: O2SAT 96
[2018-01-13 10:02] VITALS: BMI 58.4
--- NOTE | 2018-01-13 12:11 | P.DS ---
Admission Date: 01/11/18 Discharge Date: 01/13/18 Disposition: ROUTINE DISCHARGE Discharge Condition: GOOD Reason for Admission: Shortness of breath/chest pain - Problems (1) CHF exacerbation Onset Date: 09/17/15 Current Visit: Yes Status: Resolved Qualifiers: Qualified Code(s): I50.33 - Acute on chronic diastolic (congestive) heart failure (2) SOB (shortness of breath) Onset Date: 09/17/15 Current Visit: No Status: Resolved (3) HTN (hypertension) Onset Date: 06/11/16 Current Visit: No Status: Chronic Qualifiers: (4) Morbid obesity Onset Date: 06/11/16 Current Visit: No Status: Chronic Brief History of Present Illness: 57-year-old female came to the hospital with shortness of breath and chest discomfort. Patient has a history of congestive heart failure. She is supposed to follow with her mds nurse but she has not seen him in over a year. Her echocardiogram in 2016 showed ejection fraction of 60%. She most likely has diastolic dysfunction. She has been taking Lasix twice a day along with Aldactone. However, she states she had gained over 20 lb in the last few weeks. Her chest x-ray did not show any significant pulmonary edema. She was admitted to the hospital for inpatient stay to be aggressively diuresis. Hospital Course: The patient was admitted for diuresis. An echo was done. She was started on beta-amita and IV Lasix 80 mg b.i.d. with strict I & O;s daily weights and a cardiology consultation was also placed. An echo was done, which was normal. Patient's symptoms resolved with aggressive diuresis. Vital Signs/Physical Exam: Temp Pulse Resp BP Pulse Ox 98.2 F 77 20 126/58 L 93 01/13/18 08:00 01/13/18 09:51 01/13/18 08:00 01/13/18 09:51 01/13/18 08:00 General: Alert, In no apparent distress, Oriented x3 HEENT: Atraumatic, Normocephalic Neck: JVD not distended Respiratory: Clear to auscultation bilaterally, Normal air movement Cardiovascular: No edema, Normal pulses, Regular rate/rhythm, Normal S1 S2 Capillary refill: <2 Seconds Gastrointestinal: Normal bowel sounds, Soft and benign Musculoskeletal: No clubbing, No swelling Neurological: Normal speech Laboratory Data at Discharge: WBC 7.2 K/uL (4.3-10.9) 01/12/18 05:19 Hgb 11.8 g/dL (12.0-15.0) L 01/12/18 05:19 Hct 35.7 % (36.0-45.0) L 01/12/18 05:19 Plt Count 270 K/uL (152-406) 01/12/18 05:19 PT 12.7 SECONDS (9.5-12.5) H 01/11/18 18:46 INR 1.08 01/11/18 18:46 Sodium 138 mmol/L (136-145) 01/12/18 05:19 Potassium 4.1 mmol/L (3.5-5.1) 01/12/18 05:19 BUN 16 mg/dL (7-18) 01/12/18 05:19 Creatinine 0.90 mg/dL (0.55-1.3) 01/12/18 05:19 Glucose 185 mg/dL (74-106) H 01/12/18 05:19 Phosphorus 3.0 mg/dL (2.5-4.9) 01/12/18 05:19 Magnesium 2.0 mg/dL (1.8-2.4) D 01/12/18 05:19 Total Bilirubin 0.6 mg/dL (0.2-1.0) 01/12/18 05:19 AST 47 U/L (15-37) H 01/12/18 05:19 ALT 58 U/L (12-78) 01/12/18 05:19 Alkaline Phosphatase 82 U/L (45-117) 01/12/18 05:19 Troponin I < 0.02 ng/mL (0.0-0.045) 01/11/18 22:33 Triglycerides 42 mg/dL (<150) 01/12/18 05:19 Cholesterol 185 mg/dL (<200) 01/12/18 05:19 HDL Cholesterol 70 mg/dL (40-60) H 01/12/18 05:19 Cholesterol/HDL Ratio 2.64 01/12/18 05:19 Lipase 113 U/L (73-393) 01/11/18 18:46 Home Medications: Citalopram [Celexa*] 40 mg PO DAILY 09/16/15 Furosemide [Lasix] 80 mg PO BID 09/16/15 Fluticasone/Vilanterol [Breo Ellipta 200-25 Mcg INH] 1 puff IH DAILY 06/10/16 Pantoprazole [Protonix Tab*] 40 mg PO DAILY #30 tab 06/12/16 Carvedilol [Coreg*] 3.125 mg PO BID 6AM 6PM #60 tab 09/30/17 Spironolactone [Aldactone*] 25 mg PO BID #60 tab 09/30/17 ALPRAZolam [Xanax*] 0.25 mg PO BID PRN 01/11/18 Albuterol Sulfate [Proair Hfa] 1 puff IH QID 01/11/18 Losartan Potassium [Cozaar*] 50 mg PO DAILY 01/11/18 Tramadol HCl [Ultram] 50 mg PO Q4H PRN 01/11/18 Patient Discharge Instructions: Please follow up with your PCP in 1 week. Please follow up with your mds nurse in the next 1 week. Diet: AHA Activity: Ad dacia Followup: Perez Vera DO [Primary Care Provider] - Time spent managing pt's care (in minutes): 55
[2018-01-13 15:36] VITALS: BP 121/55; TEMP 98.1
== END 2018-01-13 14:44 | disposition home or self-care (01) | DRG 292 ==
LOC: ER 17:53 → ERHOLD 20:08 → 4TH 21:50
PROVIDERS: ADMIT Hospitalist; ATTEND Family Medicine
DX: I11.0 Hypertensive heart disease with heart failure (principal); E66.2 Morbid (severe) obesity with alveolar hypoventilation; Z68.44 Body mass index [BMI] 60.0-69.9, adult; I50.33 Acute on chronic diastolic (congestive) heart failure; J44.9 Chronic obstructive pulmonary disease, unspecified; F41.9 Anxiety disorder, unspecified; K21.9 Gastro-esophageal reflux disease without esophagitis; Z77.22 Contact with and (suspected) exposure to environmental tobacco smoke (acute) (chronic); F32.9 Major depressive disorder, single episode, unspecified
CPT/HCPCS: 36415; 51702; 71045; 80048; 80053; 80061; 80076; 81003; 81015; 83690; 83735; 83880; 84100; 84145; 84484; 85025; 85610; 87040; 87086; 87088; 87205; 93005; 93306; 96365; 96366; 96372; 96375; 99285; G0008; J1650; J2930; P9047; Q2035

== ENCOUNTER 2018-02-09 18:27 | Emergency (ER) | payer OTHER ==
--- OUTSIDE RECORDS SUMMARY | 2018-02-09 18:30 | XMS REPORT ---
[...] Status Dosage System Date HydrALAZINE HCl ND 94738514379 25 MG Orally Active 1 tablet Three times a with food day Vitamin B12 ND 95136461859 1000 MCG Orally Active 1 tablet Once a day Spironolactone ND 82477842905 25 MG Orally Oct Active 1 tablet Twice a day with food 2017 Carvedilol ND 54828267989 3.125 MG Orally Active as BID directed Klor-Con M10 ND 06590686363 10 MEQ Orally Inactive 1 tablet Twice a day with food Cozaar ND 69286580634 50 MG Orally Active 1 tablet Once a day Citalopram [facility] 27022849719 40 MG Orally Active 1 tablet Hydrobromide Once a day Furosemide ND 63397743379 80 MG Orally Active 1 tablet Twice a day Breo Ellipta [facility] 14056942535 100-25 MCG/INH Apr Active 1 puff Inhalation Once 08, a day 2018 Atenolol [facility] 08176826219 50 MG Orally Inactive 1 tablet Once a day -81 [facility] 77591384024 81 MG Orally Active 1 tablet Once a day Pantoprazole [facility] 76627913003 40 MG Orally Active 1 tablet Sodium Once a day Metolazone [facility] 69937648385 2.5 MG Orally Inactive 1 tablet M, W, F. Take 30 minutes before taking alsix in AM. Ultram [facility] 38904790399 50 MG Orally Apr Active 1 tablet once a day as 08, as needed needed 2018 Alprazolam [facility] 71860047669 0.25 MG Orally Active 1 tablet Twice a day PRN SEVERE ANXIETY Ventolin HFA [facility] 06086718517 108 (90 Base) Active 2 puffs as MCG/ACT needed Inhalation every 6 hrs Results No Known Results Summary Purpose eClinicalWorks Submission
--- OUTSIDE RECORDS SUMMARY | 2018-02-09 18:30 | XMS REPORT | Clinical Summary ---
:1960 Author Organization [facility] Address [address] [place] [address] Care Team Providers Name Role Phone Asked, [...] Date CHF (congestive heart failure) ([facility]) 09/22/2016 Chronic obstructive pulmonary disease with acute exacerbation (HCC) 09/22/2016 Lymphedema 09/22/2016 Essential hypertension 09/22/2016 Social History Tobacco Use Types Packs/Day Years Used Date Never Assessed Sex Assigned at Date Recorded Not on file Last Filed Vital Signs Not on file Plan of Treatment Not on file Results Not on fileafter 02/08/2017 Insurance Payer Benefit Plan / Group Subscriber ID Type Phone Address AETNA MEDICARE AETNA MEDICARE HMO/PP[facility] xxxxxxxx O
--- OUTSIDE RECORDS SUMMARY | 2018-02-09 18:30 | XMS REPORT ---
[...] End Status Dosage System Date Date Metolazone [facility] 88795815748 2.5 MG Orally M, Active 1 tablet W, F. Take 30 minutes before taking alsix in AM. Ventolin HFA [facility] 01300677952 108 (90 Base) Active 2 puffs MCG/ACT as needed Inhalation every 6 hrs -81 ND 98428151112 81 MG Orally Active 1 tablet Once a day Ultram [facility] 60761275265 50 MG Orally Sept Active 1 tablet once a day as 24, as needed needed 2017 Furosemide ND 82810954012 80 MG Orally Active 1 tablet Once a day Breo Ellipta ND 79450074507 100-25 MCG/INH Sept Active 1 puff Inhalation Once 24, a day 2017 Pantoprazole ND 49604851549 40 MG Orally Active 1 tablet Sodium Once a day Atenolol [facility] 42821496492 50 MG Orally Active 1 tablet Once a day Klor-Con M10 [facility] 66625194779 10 MEQ Orally Active 1 tablet Twice a day with food Alprazolam [facility] 93301068338 0.25 MG Orally Active 1 tablet Twice a day HydrALAZINE HCl [facility] 47053236096 25 MG Orally Active 1 tablet Three times a with food day Cozaar [facility] 42623854871 50 MG Orally Active 1 tablet Once a day Citalopram [facility] 96873643913 40 MG Orally Active 1 tablet Hydrobromide Once a day Results No Known Results Summary Purpose eClinicalWorks Submission
--- OUTSIDE RECORDS SUMMARY | 2018-02-09 18:30 | XMS REPORT ---
[...] Start Date End Date Status Dosage Furosemide [facility] 31248717001 80 MG Orally Active 1 tablet Twice a day Results No Known Results Summary Purpose [employer] Submission
--- OUTSIDE RECORDS SUMMARY | 2018-02-09 18:30 | XMS REPORT ---
[...] Start End Status Dosage System Date Date Carvedilol ND 85498744850 3.125 MG Orally Active as directed BID Aspir-81 ND 26644357880 81 MG Orally Active 1 tablet Once a day Ultram ND 01660778659 50 MG Orally Active 1 tablet as once a day as needed needed HydrALAZINE HCl ND 00402380991 25 MG Orally Active 1 tablet Three times a with food day Cozaar ND 78799000251 50 MG Orally Active 1 tablet Once a day Ventolin HFA ND 09905141229 108 (90 Base) Active 2 puffs as MCG/ACT needed Inhalation every 6 hrs Breo Ellipta [facility] 64334278642 100-25 MCG/INH Active 1 puff Inhalation Once a day Furosemide [facility] 68046390357 80 MG Orally Active 1 tablet Twice a day Citalopram [facility] 05634981872 40 MG Orally Active 1 tablet Hydrobromide Once a day Alprazolam [facility] 76194835900 0.25 MG Orally Active 1 tablet Twice a day PRN SEVERE ANXIETY Pantoprazole [facility] 53538584735 40 MG Orally Active 1 tablet Sodium Once a day Vitamin B12 [facility] 87542147355 1000 MCG Orally Active 1 tablet Once a day Results No Known Results Summary Purpose eClinicalWorks Submission
[2018-02-09] MEDS ORDERED: HYDROCODONE/APAP 5/325 MG TAB ONE (19:23)
[2018-02-09] MEDS ORDERED: CLINDAMYCIN HCL 150 MG CAP ONE (19:23)
--- NOTE | 2018-02-09 19:34 | RAD REPORT ---
EXAM DESCRIPTION: RAD - Hand Right 3 View - 02/09/2018 7:29 pm CLINICAL HISTORY: PAIN COMPARISON: No comparisons FINDINGS: No fracture or dislocation is seen.
--- NOTE | 2018-02-09 19:35 | RAD REPORT ---
EXAM DESCRIPTION: RAD - Knee Left 3 View - 02/09/2018 7:28 pm CLINICAL HISTORY: twisting Trauma COMPARISON: Knee Left 3 view dated 02/27/2015; Knee Left 3 view dated 12/08/2013 FINDINGS: No acute fracture or dislocation seen. Examination is limited by significant soft tissue a rtifact.
--- NOTE | 2018-02-09 19:40 | ER ---
Nurse's Notes [facility] Name: Gaye Castro Age: 57 yrs Sex: Female : 1960 Arrival Date: 02/09/2018 Time: 18:29 Bed 25 Private MD: Diagnosis: Cellulitis of left lower limb;Pain in left knee;Pain in right hand Presentation: 02/09 18:30 Presenting complaint: Patient states: was getting out the car and my foot got caught hj and twisted my L knee and hurt my R hand, it happened about an hour ago, denies hitting head, denies fall; uses O2 at 4L at home;l. Transition of care: patient was not received from another setting of care. Onset of symptoms was February 09, 2018. Risk Assessment: Do you want to hurt yourself or someone else? Patient reports no desire to harm self or others. Initial Sepsis Screen: Does the patient meet any 2 criteria? No. Patient's initial sepsis screen is negative. Does the patient have a suspected source of infection? No. Patient's initial sepsis screen is negative. Care prior to arrival: None. 18:30 Method Of Arrival: Wheelchair 18:30 Acuity: DEBBY 4 hj Triage Assessment: 18:33 General: Appears in no apparent distress. uncomfortable, obese, Behavior is calm, hj cooperative, appropriate for age. Pain: Complains of pain in L knee, R hand. Musculoskeletal: Reports pain in L knee, R hand. 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 hj Historical: - Allergies: 18:33 Ibuprofen; hj - Home Meds: 18:33 Advair Diskus 100-50 mcg/dose Inhl dsdv 1 puff 2 times per day [Active]; albuterol hj sulfate 2.5 mg/0.5 mL Inhl nebu 0.5 mL 4 times per day [Active]; alprazolam 0.25 mg Oral tab 1 tab once a day [Active]; Apresoline Oral 25 mg twice a day [Active]; atenolol 50 mg Oral tab 1 tab once daily [Active]; Breo Ellipta inhalation 1 puff once daily [Active]; citalopram 20 mg tab 1 tab once daily [Active]; hydralazine 25 mg Oral tab 1 tab 2 times per day [Active]; Klor-Con M20 20 mEq Oral TbTQ 1 tab once daily [Active]; Lasix 80 mg Oral tab 1 tab once daily [Active]; losartan 50 mg Oral tab 1 tab once daily [Active]; pantoprazole 40 mg Oral TbEC 1 tab once daily [Active]; tramadol 50 mg Oral tab as needed [Active]; Ventolin Rotahaler/Rotacaps 90 Inhl 90 mcg four times a day [Active]; - PMHx: 18:33 Anxiety; CHF; COPD; Depression; Hypertension; hypoxia; lymphedema; Pneumonia; Sleep hj Apnea; small heart and lungs; uses home o2; - PSHx: 18:33 None; hj - Immunization history:: Adult Immunizations up to date. - Social history:: Smoking status: Patient/guardian denies using tobacco, Patient/guardian denies using alcohol. - Ebola Screening: : Patient negative for fever greater than or equal to 101.5 degrees Fahrenheit, and additional compatible Ebola Virus Disease symptoms Patient denies exposure to infectious person Patient denies travel to an Ebola-affected area in the 21 days before illness onset. Screenin:33 Abuse screen: Denies threats or abuse. Denies injuries from another. Nutritional hj screening: No deficits noted. Tuberculosis screening: No symptoms or risk factors identified. Fall Risk Fall in past 12 months (25 points). Secondary diagnosis (15 points). Assessment: 18:56 General: Appears in no apparent distress. uncomfortable, Behavior is calm, cooperative, aj1 appropriate for age. Pain: Complains of pain in right hand and left knee Pain currently is 8 out of 10 on a pain scale. Neuro: Level of Consciousness is awake, alert, obeys commands. Cardiovascular: Patient's skin is warm and dry. Respiratory: Airway is patent Respiratory effort is even, unlabored, Respiratory pattern is regular, symmetrical. GI: No signs and/or symptoms were reported involving the gastrointestinal system. : No signs and/or symptoms were reported regarding the genitourinary system. EENT: No signs and/or symptoms were reported regarding the EENT system. Derm: No signs and/or symptoms reported regarding the dermatologic system. Skin is pink, warm \T\ dry. normal. Musculoskeletal: Range of motion: limited in left knee. Vital Signs: 18:34 BP 114 / 48; Pulse 88; Resp 18; Temp 97.6(TE); Pulse Ox 94% on 4 lpm NC; Weight 132.9 hj kg; Height 5 ft. 0 in. (152.40 cm); Pain 8/10; 18:34 Body Mass Index 57.22 (132.90 kg, 152.40 cm) ED Course: 18:29 Patient arrived in ED. as 18:31 Triage completed. hj 18:34 Arm band placed on left wrist. hj 18:36 Patient has correct armband on for positive identification. Bed in low position. Call hj light in reach. Side rails up X 1. Adult w/ patient. 18:37 [facility]ica Jones FNP-C [facility]. snw 18:37 Gamal Beaulieu MD is Attending Physician. snw 18:52 Ellen Cronin, RN is Primary Nurse. aj1 18:56 No provider procedures requiring assistance completed. aj1 19:25 Knee Left 3 View XRAY In Process Unspecified. EDMS 19:25 Hand Right 3 View XRAY In Process Unspecified. EDMS 19:39 Jason Mcelroy MD is Referral Physician. snw 19:55 Patient did not have IV access during this emergency room visit. aj1 Administered Medications: 19:22 Drug: Clindamycin 300 mg Route: PO; aj1 19:55 Follow up: Response: No adverse reaction aj1 19:22 Drug: Bucklin 5 mg-325 mg 1 tabs Route: PO; aj1 19:54 Follow up: Response: No adverse reaction aj1 Outcome: 19:40 Discharge ordered by MD. snw 19:56 Discharged to home via wheelchair, with family. aj1 19:56 Condition: good 19:56 Discharge instructions given to patient, Instructed on discharge instructions, follow up and referral plans. no drinking with medication, no driving heavy equipment, medication usage, Demonstrated understanding of instructions, follow-up care, medications, Prescriptions given X 2. 19:57 Patient left the ED. aj1 Signatures: Dispatcher [employer] EDMS Ellen Cronin, RN RN aj1 Mica Jones FNP-C FNP-Marleny Flores Henry, RN RN Corrections: (The following items were deleted from the chart) 18:36 18:34 Pulse 88bpm; Resp 18bpm; Pulse Ox 94% 4 lpm Nasal Cannula; Temp 97.6F Temporal; hj 132.9 kg; Height 5 ft. 0 in.; BMI: 57.2; Pain 8/10; hj
--- NOTE | 2018-02-09 19:40 | EDPHYS ---
Physician Documentation [facility] Name: Gaye Castro Age: 57 yrs Sex: Female : 1960 Arrival Date: 02/09/2018 Time: 18:29 Bed 25 Private MD: ED Physician Gamal Beaulieu HPI: 02/09 19:14 This 57 yrs old Female presents to ER via Wheelchair with complaints of Knee snw Injury, Hand Injury. 19:14 The patient presents with a contusion. The complaints affect the left knee and right snw hand. Context: The problem was sustained outdoors, resulted from twisting of the extremity, during a fall, the patient is not able to bear weight, must have assist prior to injury. Onset: The symptoms/episode began/occurred suddenly, just prior to arrival. Associated signs and symptoms: Pertinent positives: pain . Severity of symptoms: At their worst the symptoms were moderate, severe. The patient has experienced similar episodes in the past. It is unknown whether or not the patient has recently seen a physician. 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 hj Historical: - Allergies: 18:33 Ibuprofen; hj - Home Meds: 18:33 Advair Diskus 100-50 mcg/dose Inhl dsdv 1 puff 2 times per day [Active]; albuterol hj sulfate 2.5 mg/0.5 mL Inhl nebu 0.5 mL 4 times per day [Active]; alprazolam 0.25 mg Oral tab 1 tab once a day [Active]; Apresoline Oral 25 mg twice a day [Active]; atenolol 50 mg Oral tab 1 tab once daily [Active]; Breo Ellipta inhalation 1 puff once daily [Active]; citalopram 20 mg tab 1 tab once daily [Active]; hydralazine 25 mg Oral tab 1 tab 2 times per day [Active]; Klor-Con M20 20 mEq Oral TbTQ 1 tab once daily [Active]; Lasix 80 mg Oral tab 1 tab once daily [Active]; losartan 50 mg Oral tab 1 tab once daily [Active]; pantoprazole 40 mg Oral TbEC 1 tab once daily [Active]; tramadol 50 mg Oral tab as needed [Active]; Ventolin Rotahaler/Rotacaps 90 Inhl 90 mcg four times a day [Active]; - PMHx: 18:33 Anxiety; CHF; COPD; Depression; Hypertension; hypoxia; lymphedema; Pneumonia; Sleep hj Apnea; small heart and lungs; uses home o2; - PSHx: 18:33 None; hj - Immunization history:: Adult Immunizations up to date. - Social history:: Smoking status: Patient/guardian denies using tobacco, Patient/guardian denies using alcohol. - Ebola Screening: : Patient negative for fever greater than or equal to 101.5 degrees Fahrenheit, and additional compatible Ebola Virus Disease symptoms Patient denies exposure to infectious person Patient denies travel to an Ebola-affected area in the 21 days before illness onset. ROS: 19:10 Constitutional: Negative for fever, chills, and weight loss, Eyes: Negative for injury, snw pain, redness, and discharge, ENT: Negative for injury, pain, and discharge, Neck: Negative for injury, pain, and swelling, Cardiovascular: Negative for chest pain, palpitations, and edema, Respiratory: Negative for shortness of breath, cough, wheezing, and pleuritic chest pain, Abdomen/GI: Negative for abdominal pain, nausea, vomiting, diarrhea, and constipation, Back: Negative for injury and pain, : Negative for injury, bleeding, discharge, and swelling, Skin: Negative for injury, rash, and discoloration, Neuro: Negative for headache, weakness, numbness, tingling, and seizure. 19:10 MS/extremity: Positive for injury or acute deformity, decreased range of motion, pain, tenderness, of the right hand and left knee. Exam: 19:08 Constitutional: This is a well developed, well nourished patient who is awake, alert, snw and in no acute distress. Head/Face: Normocephalic, atraumatic. Eyes: Pupils equal round and reactive to light, extra-ocular motions intact. Lids and lashes normal. Conjunctiva and sclera are non-icteric and not injected. Cornea within normal limits. Periorbital areas with no swelling, redness, or edema. ENT: Nares patent. No nasal discharge, no septal abnormalities noted. Tympanic membranes are normal and external auditory canals are clear. Oropharynx with no redness, swelling, or masses, exudates, or evidence of obstruction, uvula midline. Mucous membranes moist. Neck: Trachea midline, no thyromegaly or masses palpated, and no cervical lymphadenopathy. Supple, full range of motion without nuchal rigidity, or vertebral point tenderness. No Meningismus. Chest/axilla: Normal chest wall appearance and motion. Nontender with no deformity. No lesions are appreciated. Cardiovascular: Regular rate and rhythm with a normal S1 and S2. No gallops, murmurs, or rubs. Normal PMI, no JVD. No pulse deficits. Respiratory: Lungs have equal breath sounds bilaterally, clear to auscultation and percussion. No rales, rhonchi or wheezes noted. No increased work of breathing, no retractions or nasal flaring. Abdomen/GI: Soft, non-tender, with normal bowel sounds. No distension or tympany. No guarding or rebound. No evidence of tenderness throughout. Back: No spinal tenderness. No costovertebral tenderness. Full range of motion. Neuro: Awake and alert, GCS 15, oriented to person, place, time, and situation. Cranial nerves II-XII grossly intact. Motor strength 5/5 in all extremities. Sensory grossly intact. Cerebellar exam normal. Normal gait. Psych: Awake, alert, with orientation to person, place and time. Behavior, mood, and affect are within normal limits. 19:08 Musculoskeletal/extremity: Extremities: grossly normal except: noted in the right hand: decreased ROM, tenderness, noted in the left knee: decreased ROM, tenderness. 19:08 Skin: Appearance: normal except for affected area, cellulitis, that is moderate, well demarcated, on the lateral aspect of left calf. Vital Signs: 18:34 BP 114 / 48; Pulse 88; Resp 18; Temp 97.6(TE); Pulse Ox 94% on 4 lpm NC; Weight 132.9 hj kg; Height 5 ft. 0 in. (152.40 cm); Pain 8/10; 18:34 Body Mass Index 57.22 (132.90 kg, 152.40 cm) MDM: 18:47 Patient medically screened. snw 19:41 Data reviewed: vital signs, nurses notes. Data interpreted: Pulse oximetry: on 4L(s) snw per nasal canula, is 94 %. Interpretation: hypoxia. Counseling: I had a detailed discussion with the patient and/or guardian regarding: the historical points, exam findings, and any diagnostic results supporting the discharge/admit diagnosis, radiology results, the need for outpatient follow up, to return to the emergency department if symptoms worsen or persist or if there are any questions or concerns that arise at home. Special discussion: Based on the history and exam findings, there is no indication for further emergent testing or inpatient evaluation. I discussed with the patient/guardian the need to see the orthopedic surgeon for further evaluation of the symptoms. I discussed with the patient/guardian the need to see the primary care provider for further evaluation of the symptoms. 02/09 18:38 Order name: Knee Left 3 View XRAY; Complete Time: 19:39 snw 02/09 18:38 Order name: Hand Right 3 View XRAY; Complete Time: 19:39 snw Administered Medications: 19:22 Drug: Clindamycin 300 mg Route: PO; aj 19:55 Follow up: Response: No adverse reaction aj1 19:22 Drug: Freehold 5 mg-325 mg 1 tabs Route: PO; aj1 19:54 Follow up: Response: No adverse reaction aj1 Disposition: 02/09/18 19:40 Discharged to Home. Impression: Cellulitis of left lower limb, Pain in left knee, Pain in right hand. - Condition is Stable. - Discharge Instructions: Arthritis, Cellulitis, Adult, Musculoskeletal Pain, Knee Pain, Cryotherapy, [id number], Heat Therapy. - Prescriptions for Clindamycin HCl 300 mg Oral Capsule - take 1 capsule by ORAL route every 6 hours for 10 days; 40 capsule. Tylenol- Codeine #3 300-30 mg Oral Tablet - take 2 tablets by ORAL route every 6 hours As needed; 10 tablet. - Medication Reconciliation Form, Thank You Letter, Antibiotic Education, Prescription Opioid Use form. - Follow up: Private Physician; When: 2 - 3 days; Reason: Recheck today's complaints, Continuance of care, Re-evaluation by your physician. Follow up: Emergency Department; When: As needed; Reason: Worsening of condition. Follow up: Jason Mcelroy MD; When: As needed; Reason: Recheck today's complaints, Continuance of care. Addendum: 02/13/2018 16:34 Co-signature as Attending Physician, Gamal Beaulieu MD. g s Signatures: Dispatcher [facility] Ellen Ford RN RN aj1 Mica Jones FNP-C FNP-Csnw Simone Bower, MARIANNE RN Gamal Salomon MD MD gs Corrections: (The following items were deleted from the chart) 02/09 19:57 19:40 02/09/2018 19:40 Discharged to Home. Impression: Cellulitis of left lower limb; aj1 Pain in left knee; Pain in right hand. Condition is Stable. Forms are Medication Reconciliation Form, Thank You Letter, Antibiotic Education, Prescription Opioid Use. Follow up: Private Physician; When: 2 - 3 days; Reason: Recheck today's complaints, Continuance of care, Re-evaluation by your physician. Follow up: Emergency Department; When: As needed; Reason: Worsening of condition. Follow up: Jason Mcelroy; When: As needed; Reason: Recheck today's complaints, Continuance of care. snw
[2018-02-09 20:14] VITALS: BP 114/48; TEMP 97.6; O2SAT 94
== END 2018-02-09 19:57 | disposition home or self-care (01) ==
LOC: ER 18:27
DX: M25.562 Pain in left knee (principal); M79.641 Pain in right hand; L03.116 Cellulitis of left lower limb; W17.89XA Other fall from one level to another, initial encounter; Y93.9 Activity, unspecified; Y92.9 Unspecified place or not applicable
CPT/HCPCS: 99283

== ENCOUNTER 2018-03-01 16:17 | Inpatient (IN) | payer OTHER ==
--- OUTSIDE RECORDS SUMMARY | 2018-03-01 16:19 | XMS REPORT ---
[...] Status Dosage System Date Date Carvedilol ND 96171113484 3.125 MG Orally Active as directed BID Aspir-81 ND 79754940731 81 MG Orally Active 1 tablet Once a day Ultram ND 93874507300 50 MG Orally Active 1 tablet as once a day as needed needed HydrALAZINE HCl ND 24622072697 25 MG Orally Active 1 tablet Three times a with food day Cozaar ND 91778410702 50 MG Orally Active 1 tablet Once a day Ventolin HFA ND 83101290781 108 (90 Base) Active 2 puffs as MCG/ACT needed Inhalation every 6 hrs Breo Ellipta [facility] 31130415932 100-25 MCG/INH Active 1 puff Inhalation Once a day Furosemide [facility] 19972729640 80 MG Orally Active 1 tablet Twice a day Citalopram [facility] 90101066253 40 MG Orally Active 1 tablet Hydrobromide Once a day Alprazolam [facility] 33372210956 0.25 MG Orally Active 1 tablet Twice a day PRN SEVERE ANXIETY Pantoprazole [facility] 55062407273 40 MG Orally Active 1 tablet Sodium Once a day Vitamin B12 [facility] 72959833477 1000 MCG Orally Active 1 tablet Once a day Results No Known Results Summary Purpose eClinicalWorks Submission
--- OUTSIDE RECORDS SUMMARY | 2018-03-01 16:19 | XMS REPORT | Clinical Summary ---
:1960 Author Organization [facility] Address [address] [place] [address] Care Team Providers Name Role Phone Asked, No Pcp Primary Care Provider Unavailable Allergies No Known Allergies Medications Medication Sig Dispensed Refills Start Date End Date Status traMADol (ULTRAM) 50 Take 50 mg by mouth 0 Active mg tablet every 6 (six) hours as needed for moderate pain. furosemide (LASIX) 80 Take 80 mg by mouth 0 Active mg tablet 3 (three) times a day. atenolol (TENORMIN) Take 50 mg by mouth 0 Active 50 MG tablet daily. hydrALAZINE Take 25 mg by mouth 0 Active (APRESOLINE) 25 MG 2 (two) times a tablet day. ALPRAZolam (XANAX) Take 0.25 mg by 0 Active 0.25 MG tablet mouth nightly as needed for anxiety. potassium chloride Take 20 mEq by 0 Active (K-DUR,KLOR-CON) 10 mouth 3 (three) MEQ CR tablet times a day. citalopram (CeleXA) Take 20 mg by mouth 0 Active 20 MG tablet daily. pantoprazole Take 40 mg by mouth 0 Active (PROTONIX) 40 MG EC daily. tablet cyanocobalamin 1000 Take 1,000 mcg by 0 Active MCG tablet mouth daily. ascorbic acid, Take 500 mg by 0 Active vitamin C, (VITAMIN mouth daily. C) 500 MG tablet fluticasone-salmetero Inhale 1 puff 2 0 Active l (ADVAIR) 100-50 (two) times a day. mcg/dose DISKUS albuterol (PROVENTIL) Take 2.5 mg by 0 Active 2.5 mg /3 mL (0.083 nebulization 4 %) nebulizer solution (four) times a day. Active Problems Problem Noted Date CHF (congestive heart failure) 09/22/2016 Chronic obstructive pulmonary disease with acute exacerbation 09/22/2016 Lymphedema 09/22/2016 Essential hypertension 09/22/2016 Social History Tobacco Use Types Packs/Day Years Used Date Never Assessed Sex Assigned at Date Recorded Not on file Job Start Date Occupation Industry Not on file Not on file Not on file Travel History Travel Start Travel End No recent travel history available. Last Filed Vital Signs Not on file Plan of Treatment Not on file Results Not on fileafter 02/28/2017 Insurance Payer Benefit Plan / Group Subscriber ID Type Phone Address [employer] MEDICARE AETNA MEDICARE HMO/PPO [facility] xxxxxxxx HMO Advance Directives Patient has advance care planning documents, and code status on file. For more information, please contact:Rafael Montague[address] [place] [id number] Code Status Date Activated Date Inactivated Comments Full Code 09/22/2016 3:09 AM 09/26/2016 5:53 PM Code Status decision reached by: Patient
--- OUTSIDE RECORDS SUMMARY | 2018-03-01 16:19 | XMS REPORT ---
[...] Status Dosage System Date HydrALAZINE HCl ND 97749181518 25 MG Orally Active 1 tablet Three times a with food day Vitamin B12 ND 51682547848 1000 MCG Orally Active 1 tablet Once a day Spironolactone ND 07538937452 25 MG Orally Oct Active 1 tablet Twice a day with food 2017 Carvedilol ND 26393937947 3.125 MG Orally Active as BID directed Klor-Con M10 ND 77071453775 10 MEQ Orally Inactive 1 tablet Twice a day with food Cozaar ND 54817314137 50 MG Orally Active 1 tablet Once a day Citalopram [facility] 39022793584 40 MG Orally Active 1 tablet Hydrobromide Once a day Furosemide ND 00800586379 80 MG Orally Active 1 tablet Twice a day Breo Ellipta [facility] 02619432674 100-25 MCG/INH Apr Active 1 puff Inhalation Once 08, a day 2018 Atenolol [facility] 99953536071 50 MG Orally Inactive 1 tablet Once a day -81 [facility] 11397936578 81 MG Orally Active 1 tablet Once a day Pantoprazole [facility] 28227393532 40 MG Orally Active 1 tablet Sodium Once a day Metolazone [facility] 51204760111 2.5 MG Orally Inactive 1 tablet M, W, F. Take 30 minutes before taking alsix in AM. Ultram [facility] 13982452814 50 MG Orally Apr Active 1 tablet once a day as 08, as needed needed 2018 Alprazolam [facility] 76057022467 0.25 MG Orally Active 1 tablet Twice a day PRN SEVERE ANXIETY Ventolin HFA [facility] 40736865619 108 (90 Base) Active 2 puffs as MCG/ACT needed Inhalation every 6 hrs Results No Known Results Summary Purpose eClinicalWorks Submission
--- OUTSIDE RECORDS SUMMARY | 2018-03-01 16:19 | XMS REPORT ---
[...] Start Date End Date Status Dosage Furosemide [facility] 53658920580 80 MG Orally Active 1 tablet Twice a day Results No Known Results Summary Purpose [facility] Submission
--- OUTSIDE RECORDS SUMMARY | 2018-03-01 16:19 | XMS REPORT ---
[...] End Status Dosage System Date Date Metolazone [facility] 95578178615 2.5 MG Orally M, Active 1 tablet W, F. Take 30 minutes before taking alsix in AM. Ventolin HFA [facility] 54089894033 108 (90 Base) Active 2 puffs MCG/ACT as needed Inhalation every 6 hrs -81 ND 72676163124 81 MG Orally Active 1 tablet Once a day Ultram [facility] 86470509306 50 MG Orally Sept Active 1 tablet once a day as 24, as needed needed 2017 Furosemide ND 33587915541 80 MG Orally Active 1 tablet Once a day Breo Ellipta ND 16936205751 100-25 MCG/INH Sept Active 1 puff Inhalation Once 24, a day 2017 Pantoprazole ND 30372713219 40 MG Orally Active 1 tablet Sodium Once a day Atenolol [facility] 00662918638 50 MG Orally Active 1 tablet Once a day Klor-Con M10 [facility] 96276360139 10 MEQ Orally Active 1 tablet Twice a day with food Alprazolam [facility] 80508864918 0.25 MG Orally Active 1 tablet Twice a day HydrALAZINE HCl [facility] 92067232742 25 MG Orally Active 1 tablet Three times a with food day Cozaar [facility] 61900716639 50 MG Orally Active 1 tablet Once a day Citalopram [facility] 14256464739 40 MG Orally Active 1 tablet Hydrobromide Once a day Results No Known Results Summary Purpose eClinicalWorks Submission
[2018-03-01] MEDS ORDERED: METHYLPREDNISOLONE 125 MG INJ ONE (17:55)
--- NOTE | 2018-03-01 17:55 | EDPHYS ---
Physician Documentation [facility] Name: Gaye Castro Age: 57 yrs Sex: Female : 1960 Arrival Date: 03/01/2018 Time: 16:21 Bed 18 Private MD: Ronda Goyal ED Physician Mariano Berg HPI: 03/01 17:45 This 57 yrs old Female presents to ER via Ambulatory with complaints of rosalind Breathing Difficulty. 17:45 The patient has shortness of breath at rest, with light activity. Onset: The rosalind symptoms/episode began/occurred 3 day(s) ago. Duration: The symptoms are continuous, and are steadily getting worse. The patient's shortness of breath is aggravated by exertion, light activity, supine position, walking. Associated signs and symptoms: Pertinent positives: non-productive cough. Severity of symptoms: At their worst the symptoms were moderate in the emergency department the symptoms are unchanged. The patient has experienced similar episodes in the past, multiple times. 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 - Social history:: Smoking status: Patient/guardian denies using tobacco. - Family history:: not pertinent. - Ebola Screening: : No symptoms or risks identified at this time. ROS: 17:45 Constitutional: Negative for fever, chills, and weight loss, Eyes: Negative for injury, rosalind pain, redness, and discharge, ENT: Negative for injury, pain, and discharge, Neck: Negative for injury, pain, and swelling, Cardiovascular: Negative for chest pain, palpitations, and edema, Abdomen/GI: Negative for abdominal pain, nausea, vomiting, diarrhea, and constipation, Back: Negative for injury and pain, : Negative for injury, bleeding, discharge, and swelling, Skin: Negative for injury, rash, and discoloration, Neuro: Negative for headache, weakness, numbness, tingling, and seizure, Psych: Negative for depression, anxiety, suicide ideation, homicidal ideation, and hallucinations, Allergy/Immunology: Negative for hives, rash, and allergies, Endocrine: Negative for neck swelling, polydipsia, polyuria, polyphagia, and marked weight changes, Hematologic/Lymphatic: Negative for swollen nodes, abnormal bleeding, and unusual bruising. 17:45 Respiratory: Positive for cough, shortness of breath, wheezing, expiratory. 17:45 MS/extremity: Positive for swelling, of the right leg and left leg, extensive lymphedema. Exam: 17:45 Constitutional: This is a well developed, well nourished patient who is awake, alert, rosalind and in no acute distress. Head/Face: Normocephalic, atraumatic. Eyes: Pupils equal round and reactive to light, extra-ocular motions intact. Lids and lashes normal. Conjunctiva and sclera are non-icteric and not injected. Cornea within normal limits. Periorbital areas with no swelling, redness, or edema. ENT: Nares patent. No nasal discharge, no septal abnormalities noted. Tympanic membranes are normal and external auditory canals are clear. Oropharynx with no redness, swelling, or masses, exudates, or evidence of obstruction, uvula midline. Mucous membranes moist. Neck: Trachea midline, no thyromegaly or masses palpated, and no cervical lymphadenopathy. Supple, full range of motion without nuchal rigidity, or vertebral point tenderness. No Meningismus. Chest/axilla: Normal chest wall appearance and motion. Nontender with no deformity. No lesions are appreciated. Cardiovascular: Regular rate and rhythm with a normal S1 and S2. No gallops, murmurs, or rubs. Normal PMI, no JVD. No pulse deficits. Abdomen/GI: Soft, non-tender, with normal bowel sounds. No distension or tympany. No guarding or rebound. No evidence of tenderness throughout. Back: No spinal tenderness. No costovertebral tenderness. Full range of motion. Skin: Warm, dry with normal turgor. Normal color with no rashes, no lesions, and no evidence of cellulitis. Neuro: Awake and alert, GCS 15, oriented to person, place, time, and situation. Cranial nerves II-XII grossly intact. Motor strength 5/5 in all extremities. Sensory grossly intact. Cerebellar exam normal. Normal gait. Psych: Awake, alert, with orientation to person, place and time. Behavior, mood, and affect are within normal limits. 17:45 Respiratory: the patient does not display signs of respiratory distress, Respirations: labored breathing, that is mild, Breath sounds: bronchial sounds, decreased breath sounds, rhonchi, wheezing: expiratory Respiratory rate: 29 Vital Signs: 16:27 Pulse 97; Resp 29 S; Temp 98.7; Pulse Ox 94% on 4 lpm NC; Weight 140.16 kg (R); Height sg 5 ft. 0 in. (152.40 cm); Pain 7/10; 16:27 BP 118 / 74; sg 18:00 BP 132 / 73; Pulse 73; Resp 23; Pulse Ox 100% on 4 lpm NC; ca1 19:03 BP 141 / 59; Pulse 90; Resp 20 S; Pulse Ox 94% on 4 lpm NC; jd3 16:27 Body Mass Index 60.35 (140.16 kg, 152.40 cm) MDM: 17:01 Patient medically screened. [facility] 17:48 Data reviewed: vital signs, nurses notes, lab test result(s), EKG, radiologic studies, rosalind plain films. 03/01 17:40 Order name: Basic Metabolic Panel 03/01 17:40 Order name: CBC with Diff 03/01 17:40 Order name: LFT's 03/01 17:40 Order name: Magnesium 03/01 17:40 Order name: NT PRO-BNP 03/01 17:40 Order name: PT-INR 03/01 17:40 Order name: Troponin (emerg Dept Use Only) 03/01 17:44 Order name: Influenza Screen (a \T\ B) [facility] 03/01 18:25 Order name: Protime (+INR); Complete Time: 18:50 EDMS 03/01 18:26 Order name: CBC with Automated Diff; Complete Time: 18:50 EDMS 03/01 18:41 Order name: Basic Metabolic Panel; Complete Time: 18:50 EDMS 03/01 18:41 Order name: Liver (Hepatic) Function; Complete Time: 18:50 EDMS 03/01 18:41 Order name: Troponin (Emerg Dept Use Only); Complete Time: 18:50 EDMS 03/01 18:41 Order name: NT PRO-BNP; Complete Time: 18:50 EDMS 03/01 17:40 Order name: XRAY Chest (1 view) 03/01 17:40 Order name: EKG; Complete Time: 18:03 03/01 17:40 Order name: Cardiac monitoring; Complete Time: 18:18 03/01 17:40 Order name: EKG - Nurse/Tech; Complete Time: 18:19 03/01 17:40 Order name: IV Saline Lock; Complete Time: 18:19 03/01 17:40 Order name: Labs collected and sent; Complete Time: 18:19 03/01 17:40 Order name: O2 Per Protocol; Complete Time: 18:19 03/01 17:40 Order name: O2 Sat Monitoring; Complete Time: 18:19 03/01 18:03 Order name: EKG Electrocardiogram EDN[facility] 03/01 18:41 Order name: Magnesium; Complete Time: 18:50 EDMS 03/01 19:18 Order name: Influenza Screen (A [facility] 03/01 19:23 Order name: RAD EDNJ Administered Medications: 17:40 Drug: levofloxacin 500 mg Volume: 100 ml; Route: IVPB; Infused Over: 60 mins; Site: ca1 right antecubital; 19:21 Follow up: Response: No adverse reaction; IV Status: Completed infusion jd3 17:45 Drug: SOLU-Medrol 125 mg Route: IVP; Site: right antecubital; ca1 19:21 Follow up: Response: No adverse reaction jd3 17:50 Drug: Albuterol - atroVENT (3:1) (2.5 mg - 0.5 mg) 3 ml Route: Nebulizer; ca1 19:22 Follow up: Response: No adverse reaction jd3 17:50 Drug: Lovenox 40 mg Route: Sub-Q; Site: left lower abdomen; ca1 19:22 Follow up: Response: No adverse reaction jd3 Disposition: 03/01/18 17:54 Hospitalization ordered by Mamadou Wright for Inpatient Admission. Preliminary diagnosis are Obesity, unspecified, Dyspnea, Chronic obstructive pulmonary disease with (acute) exacerbation, Lymphedema, not elsewhere classified - extensive , chronic. - Bed requested for Telemetry/MedSurg (Inpatient). - Status is Inpatient Admission. jd3 - Condition is Fair. - Problem is new. - Symptoms have improved. UTI on Admission? No Signatures: Dispatcher [employer] EDMS Erin Wright RN RN dw Jaosn Schafer, RN Mariano Nunn MD MD cha Smirch, Shelby, RN RN Lillian Nielsen, Papito Pearce RN, RN RN jd3 Lizz Cain RN RN ca1 Corrections: (The following items were deleted from the chart) 18:40 17:54 Hospitalization Ordered by Mamadou Wright MD for Inpatient Admission. Preliminary dw diagnosis is Obesity, unspecified; Dyspnea; Chronic obstructive pulmonary disease with (acute) exacerbation; Lymphedema, not elsewhere classified - extensive , chronic. Bed requested for Telemetry/MedSurg (Inpatient). Status is Inpatient Admission. Condition is Fair. Problem is new. Symptoms have improved. UTI on Admission? No. rosalind 20:15 18:40 03/01/2018 17:54 Hospitalization Ordered by Mamadou Wright MD for Inpatient jd3 Admission. Preliminary diagnosis is Obesity, unspecified; Dyspnea; Chronic obstructive pulmonary disease with (acute) exacerbation; Lymphedema, not elsewhere classified - extensive , chronic. Bed requested for Telemetry/MedSurg (Inpatient). Status is Inpatient Admission. Condition is Fair. Problem is new. Symptoms have improved. UTI on Admission? No. dw
--- NOTE | 2018-03-01 17:55 | ER ---
Nurse's Notes [facility] Name: Gaye Castro Age: 57 yrs Sex: Female : 1960 Arrival Date: 03/01/2018 Time: 16:21 Bed 18 Private MD: Ronda Goyal Diagnosis: Obesity, unspecified;Dyspnea;Chronic obstructive pulmonary disease with (acute) exacerbation;Lymphedema, not elsewhere classified-extensive , chronic Presentation: 03/01 16:25 Presenting complaint: Patient states: I have had some breathing difficulty even using sg my o2 and have been out of my nebs and medication for several weeks, have an appointment on the 3rd with my pulmonary doctor to have my medication filled, have had some wheezing and some SOB and just cant catch my breath. Transition of care: patient was not received from another setting of care. Onset of symptoms was March 01, 2018. Risk Assessment: Do you want to hurt yourself or someone else? Patient reports no desire to harm self or others. Initial Sepsis Screen: Does the patient meet any 2 criteria? No. Patient's initial sepsis screen is negative. Does the patient have a suspected source of infection? No. Patient's initial sepsis screen is negative. Care prior to arrival: None. 16:25 Method Of Arrival: Ambulatory sg 16:25 Acuity: DEBBY 3 sg Triage Assessment: 19:19 Respiratory: Reports shortness of breath the patient has moderate shortness of breath. jd3 19:19 Respiratory: Onset: The symptoms/episode began/occurred gradually. 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 - Social history:: Smoking status: Patient/guardian denies using tobacco. - Family history:: not pertinent. - Ebola Screening: : No symptoms or risks identified at this time. Screenin:23 Abuse screen: Denies threats or abuse. Denies injuries from another. Nutritional hb screening: No deficits noted. Tuberculosis screening: No symptoms or risk factors identified. Fall Risk Total Lopez Fall Scale indicates Low Risk Score (25-44 pts). Fall prevention measures have been instituted. Side Rails Up X 2 Frequent Obs/Assesments occuring Family Present and informed to notify staff if they need to leave bedside As available Patient and Family Educated on Fall Prevention Program and strategies. Assessment: 17:15 General: Appears in no apparent distress. ill, Behavior is calm, cooperative. Pain: hb Denies pain. Neuro: Level of Consciousness is awake, alert, obeys commands, Oriented to person, place, time, situation. Cardiovascular: Heart tones S1 S2 present Capillary refill < 3 seconds Patient's skin is warm and dry. Cardiovascular: Rhythm is regular. Respiratory: Airway is patent Trachea midline Respiratory effort is labored, Respiratory pattern is symmetrical, tachypnea Breath sounds are coarse Breath sounds are diminished bilaterally. GI: No signs and/or symptoms were reported involving the gastrointestinal system. : No signs and/or symptoms were reported regarding the genitourinary system. EENT: No signs and/or symptoms were reported regarding the EENT system. Derm: Skin is intact, is healthy with good turgor, Skin is pink, warm \T\ dry. Musculoskeletal: No signs and/or symptoms reported regarding the musculoskeletal system. 18:15 Reassessment: No changes from previously documented assessment. Patient and/or family hb updated on plan of care and expected duration. Pain level reassessed. remains at bedside. 19:04 Reassessment: Patient appears in no apparent distress at this time. No changes from jd3 previously documented assessment. Patient and/or family updated on plan of care and expected duration. Pain level reassessed. Patient is alert, oriented x 3, equal unlabored respirations, skin warm/dry/pink. Vital Signs: 16:27 Pulse 97; Resp 29 S; Temp 98.7; Pulse Ox 94% on 4 lpm NC; Weight 140.16 kg (R); Height sg 5 ft. 0 in. (152.40 cm); Pain 10; 16:27 BP 118 / 74; sg 18:00 BP 132 / 73; Pulse 73; Resp 23; Pulse Ox 100% on 4 lpm NC; ca1 19:03 BP 141 / 59; Pulse 90; Resp 20 S; Pulse Ox 94% on 4 lpm NC; jd3 16:27 Body Mass Index 60.35 (140.16 kg, 152.40 cm) ED Course: 16:21 Patient arrived in ED. sb2 16:21 Ronda Goyal MD is Private Physician. sb2 16:27 Triage completed. sg 16:27 Arm band placed on. sg 17:01 Mariano Berg MD is Attending Physician. rosalind 17:19 Lizz Cain RN is Primary Nurse. ca1 17:45 Patient has correct armband on for positive identification. Placed in gown. Bed in low hb position. Call light in reach. Side rails up X2. 17:49 Mamadou Wright MD is Hospitalizing Provider. rosalind 17:56 EKG done, by electrical engineering technologist. reviewed by Mariano Berg MD. 3 18:19 Influenza Screen (a \T\ B) Sent. ca1 19:19 No provider procedures requiring assistance completed. IV is patent, is intact, with jd3 fluids infusing freely, with good blood return, IV per day shift in place, dressing intact.. Patient admitted, IV remains in place. Administered Medications: 17:40 Drug: levofloxacin 500 mg Volume: 100 ml; Route: IVPB; Infused Over: 60 mins; Site: ca1 right antecubital; 19:21 Follow up: Response: No adverse reaction; IV Status: Completed infusion jd3 17:45 Drug: SOLU-Medrol 125 mg Route: IVP; Site: right antecubital; ca1 19:21 Follow up: Response: No adverse reaction jd3 17:50 Drug: Albuterol - atroVENT (3:1) (2.5 mg - 0.5 mg) 3 ml Route: Nebulizer; ca1 19:22 Follow up: Response: No adverse reaction jd3 17:50 Drug: Lovenox 40 mg Route: Sub-Q; Site: left lower abdomen; ca1 19:22 Follow up: Response: No adverse reaction jd3 Outcome: 17:54 Decision to Hospitalize by Provider. rosalind 20:10 Patient left the ED. jd3 20:10 Admitted to Med/surg accompanied by tech, via wheelchair, room 228, with oxygen, with chart, Report called to Chantel LOPES 20:10 Condition: stable 20:10 Instructed on the need for admit, Demonstrated understanding of instructions. Signatures: Jason Schafer RN RN Mariano Kaur MD MD cha Baxter, Heather RN RN Papito Glynn RN Lucero Murrieta 2 Ana Dias 3 Lizz Cain, RN RN ca1 Corrections: (The following items were deleted from the chart) 20:17 20:15 Patient left the ED. fady shrestha 20: 20:16 Condition: stable fady shrestha 20:17 20:16 Admitted to Med/surg accompanied by tech, via wheelchair, room 228, with oxygen, fady with chart, Report called to Chantel shrestha 20:17 20:16 Instructed on the need for admit, Demonstrated understanding of instructions, fady shrestha
[2018-03-01] MEDS ORDERED: ALBUTEROL 2.5 MG/3 ML NEB SOL ONE (17:56)
[2018-03-01] MEDS ORDERED: IPRATROPIUM BROM 0.5MG/2.5ML ONE (17:56)
[2018-03-01] MEDS ORDERED: Levofloxacin500mg IV 500 MG/100 ML BAG IV ONE (18:02)
[2018-03-01] MEDS ORDERED: ENOXAPARIN 40 MG/0.4 ML SQ ONE (18:03)
[2018-03-01 18:24] LABS: Protime INR 1.11
[2018-03-01 18:26] LABS: Absolute Lymphocytes (CBC) 1.6 K/uL (0.7-4.9); Absolute Monocytes 0.6 K/uL (0.1-1.3); Absolute Neutrophil 5.4 K/uL (1.8-8.0); Basophils % 0.4 % (0-1.3); Eosinophils % 2.2 % (0-4.4); Hematocrit 36.8 % (36.0-45.0); Lymphocytes % 20.2 % (15.3-44.8); MCH 29.2 pg (27.0-35.0); MCV 89.4 fL (80-100); MPV 8.2 fL (7.6-11.3); Monocytes % 8.2 % (3.3-12.3); RBC Red Blood Cell Count 4.11 M/uL (3.86-4.86)
[2018-03-01 18:40] LABS: ALT/SGPT 28 U/L (12-78); AST/SGOT 18 U/L (15-37); Albumin 3.5 g/dL (3.4-5.0); Alkaline Phosphatase 74 U/L (45-117); BUN Blood Urea Nitrogen 22 mg/dL (7-18); Bicarbonate 31 mmol/L (21-32); Bilirubin Direct 0.3 mg/dL (0-0.2); Bilirubin Total 1.1 mg/dL (0.2-1.0); Glucose Level 116 mg/dL (74-106); Magnesium 2.3 mg/dL (1.8-2.4); NT PRO-BNP 127 pg/mL (<125); Potassium 3.7 mmol/L (3.5-5.1); Protein, Total 8.3 g/dL (6.4-8.2); Sodium Level 143 mmol/L (136-145); Troponin (Emerg Dept Use Only) < 0.02 ng/mL (0.0-0.045)
--- NOTE | 2018-03-01 19:16 | EKG ---
Test Date: 2018-03-01 Test Time: 17:39:25 Anesthesiology Physician Assistant: SONIA MEASUREMENT RESULTS: Intervals: Rate: 72 SC: 222 QRSD: 92 QT: 412 QTc: 451 [place]: P: 45 SC: 222 QRS: 57 T: 55 INTERPRETIVE STATEMENTS: Sinus rhythm with 1st degree AV block Nonspecific ST and T wave abnormality Abnormal ECG Compared to ECG 01/11/2018 19:15:15 ST (T wave) deviation now present T-wave abnormality no longer present Electronically Signed On 03-01-18 19:16:02 EXCELSIOR MACHINE TENDER by Jai Rincon
--- NOTE | 2018-03-01 19:22 | RAD REPORT ---
EXAM DESCRIPTION: RAD - Chest Single View - 03/01/2018 6:29 pm CLINICAL HISTORY: Shortness of breath, COPD, dyspnea COMPARISON: January 11 TECHNIQUE: AP portable chest image was obtained 1810 hour . FINDINGS: Lung volumes are low. Interstitial markings are prominent. Pattern is not substantially di fferent. Prominent heart size and prominent vasculature are again noted. Patient has chronic lung dis ease and mild cardiomegaly can mask early failure or volume overload. Peripheral consolidation is not seen. No pneumothorax or large pleural effusion. No acute bony abnormality seen. No acute aortic fin dings suspected. IMPRESSION: Cardiomegaly, vascular engorgement and prominent lung markings. Pattern is not substantially different. Patient may have chronic failure. The chronic disease can mas k any mild early failure or volume overload.
[2018-03-01 20:26] VITALS: BMI 60.4
[2018-03-01] MEDS ORDERED: ALBUTEROL 2.5 MG/3 ML NEB SOL NEB PRN (21:26)
[2018-03-01] MEDS ORDERED: IPRATROPIUM BROM 0.5MG/2.5ML NEB PRN (21:26)
[2018-03-01] MEDS ORDERED: ONDANSETRON 4 MG/2 ML VIAL IV PRN (21:26)
[2018-03-01] MEDS ORDERED: ACETAMINOPHEN 500 MG TAB PO PRN (21:26)
--- NOTE | 2018-03-01 21:46 | P.HP ---
Certification for Inpatient Patient admitted to: Inpatient With expected LOS: >2 Midnights Practitioner: I am a practitioner with admitting privileges, knowledge of patient current condition, hospital course, and medical plan of care. Services: Services provided to patient in accordance with Admission requirements found in Title 42 Section 412.3 of the Code of Federal Regulations Patient History Date of Service: 03/01/18 Reason for admission: COPD exacerbation History of Present Illness: Ms Castro is a 57 years old woman with multiple medical problems including, morbid obesity, HTN, Chronic lymphedema, COPD on home oxygen 3-4 L by AL, came to ED complaining of increasing SOB and dry cough for the last 4 days. She denied fever. The patient has had more audible wheezing lately. She states that was not doing her breathing treatment since needed to refill Albuterol and did not have a chance yet. Lab work shows normal WBC count, no fever. CXR shows no acute infiltrate, only chronic changes. At the time of my examination, she was in non-distress, without obvious SOB Allergies No Known Drug Allergies Allergy (Verified 01/11/18 23:11) uncoded Home Medications: Citalopram [Celexa*] 40 mg PO DAILY 09/16/15 Furosemide [Lasix] 80 mg PO BID 09/16/15 Fluticasone/Vilanterol [Breo Ellipta 200-25 Mcg INH] 1 puff IH DAILY 06/10/16 Pantoprazole [Protonix Tab*] 40 mg PO DAILY #30 tab 06/12/16 Carvedilol [Coreg*] 3.125 mg PO BID 6AM 6PM #60 tab 09/30/17 Spironolactone [Aldactone*] 25 mg PO BID #60 tab 09/30/17 ALPRAZolam [Xanax*] 0.25 mg PO BID PRN 01/11/18 Albuterol Sulfate [Proair Hfa] 1 puff IH QID 01/11/18 Losartan Potassium [Cozaar*] 50 mg PO DAILY 01/11/18 Tramadol HCl [Ultram] 50 mg PO Q4H PRN 01/11/18 Sucralfate [Carafate*] 1 tab PO AC 01/13/18 - Past Medical/Surgical History Has patient received pneumonia vaccine in the past: No Diabetic: No -: HTN -: CHF, diastolic dysfunction -: COPD -: Lymphadema -: Obesity hypoventilation syndrome -: Anxiety -: GERD -: Morbid obesity -: Secondhand smoke exposure -: Depression Psychosocial/ Personal History: Patient lives with her boyfriend - Family History Mother -: Heart disease, Hypertension, Diabetes, Other (see notes) Notes: dementia Sister -: Hypertension - Social History Smoking Status: Former smoker Alcohol use: Yes CD- Drugs: No Caffeine use: Yes Place of Residence: Home Review of Systems 10-point ROS is otherwise unremarkable Physical Examination - Vital Signs Temperature: 97.8 F Blood Pressure: 126/63 Pulse: 75 Respirations: 18 Pulse Ox (%): 87 - Physical Exam General: Alert, In no apparent distress HEENT: Atraumatic, PERRLA, Mucous membr. moist/pink, EOMI, Sclerae nonicteric Neck: Supple, 2+ carotid pulse no bruit, No LAD, Without JVD or thyroid abnormality Respiratory: Clear to auscultation bilaterally, Diminished Cardiovascular: Regular rate/rhythm, Normal S1 S2 Gastrointestinal: Normal bowel sounds, No tenderness Musculoskeletal: No tenderness, Swelling (LE bilateral lymphedema) Integumentary: No rashes Neurological: Normal speech, Normal strength at 5/5 x4 extr, Normal tone, Normal affect Lymphatics: No axilla or inguinal lymphadenopathy Assessment and Plan - Problems (Diagnosis) (1) COPD exacerbation Onset Date: 06/11/16 Current Visit: No Status: Acute (2) Obesity Onset Date: 01/12/18 Current Visit: No Status: Acute Qualifiers: Obesity type: with alveolar hypoventilation Obesity classification: unspecified obesity classification Serious obesity comorbidity presence: with serious comorbidity Qualified Code(s): E66.2 - Morbid (severe) obesity with alveolar hypoventilation (3) HTN (hypertension) Onset Date: 06/11/16 Current Visit: No Status: Chronic Qualifiers: Hypertension type: essential hypertension (4) Lymphedema in adult patient Onset Date: 06/11/16 Current Visit: No Status: Chronic - Plan The patient will be admitted to the hospital due to COPD exacerbation. CXR shows no acute abnormalities, she has normal WBC count, Influenza test negative. Will order Procalcitonin level. Continue IV steroids and breathing treatments. Consult Dr Bravo. - Advance Directives Does patient have a Living Will: No Does patient have a Durable POA for Healthcare: Yes - Code Status/Comfort Care Code Status Assessed: Yes Code Status: Full Code
[2018-03-01] MEDS: NA CHLORIDE 0.9% 1,000 ML IV SCH (21:59)
[2018-03-01] MEDS: METHYLPREDNISOLONE 40 MG INJ IV SCH ×2 (21:59→23:57)
[2018-03-02] MEDS: guaiFENesin 100 MG/5 ML UCUP PO PRN ×3 (04:08→20:41)
[2018-03-02 05:56] LABS: Absolute Lymphocytes (CBC) 0.5 K/uL (0.7-4.9); Absolute Neutrophil 5.2 K/uL (1.8-8.0); Basophils % 0.1 % (0-1.3); Hematocrit 34.8 % (36.0-45.0); MCH 29.7 pg (27.0-35.0); MCV 88.1 fL (80-100); MPV 8.3 fL (7.6-11.3); Monocytes % 0.8 % (3.3-12.3); RBC Red Blood Cell Count 3.95 M/uL (3.86-4.86)
[2018-03-02] MEDS: METHYLPREDNISOLONE 40 MG INJ IV SCH ×3 (06:03→17:45)
[2018-03-02 06:16] LABS: Potassium 4.1 mmol/L (3.5-5.1)
[2018-03-02 07:07] LABS: Magnesium 2.2 mg/dL (1.8-2.4)
[2018-03-02 08:47] LABS: Blood Morphology Comment NOT SEEN (NOT SEEN); Platelet Estimate ADEQ; Urine White Blood Cell Casts OK
[2018-03-02] MEDS: NA CHLORIDE 0.9% 1,000 ML IV SCH (08:53)
[2018-03-02] MEDS: ENOXAPARIN 40 MG/0.4 ML SQ SCH (08:53)
[2018-03-02] MEDS ORDERED: ALPRAZOLAM 0.25 MG TABLET PO PRN (15:32)
[2018-03-02] MEDS ORDERED: TRAMADOL HCL 50 MG TAB PO PRN (15:32)
[2018-03-02] MEDS: CARVEDILOL 3.125 MG TAB PO SCH (17:42)
[2018-03-02] MEDS: FUROSEMIDE 40 MG TABLET PO SCH (20:34)
[2018-03-02] MEDS: SPIRONOLACTONE 25 MG TABLET PO SCH (20:35)
[2018-03-02] MEDS: PROMOD 30 ML DOSE PO SCH (20:38)
[2018-03-02] MEDS ORDERED: HOME MED 1 EA UNK (Furosemide [Lasix] 80 MG) PO SCH (21:00)
--- NOTE | 2018-03-02 22:07 | PN ---
Date of Progress Note: 03/02/2018 Subjective: The patient was seen and examined. Chart reviewed, and case discussed with RN. The pat ient states her breathing has improved significantly, however, still having some wheezing and shortne ss of breath. Review of Systems: Negative except as above. Medications: List reviewed. Physical Examination: Vital Signs: Temperature 97.6, heart rate 78, blood pressure 118/59, respirations 20, and O2 94% on 4 L via nasal cannula. General: Awake, alert, and oriented x3 with some acute respiratory distress, morbidly obese female. CV: S1, S2. Peripheral pulses present. No murmurs. Regular rate and rhythm. Respiratory: Diminished breath sounds. Wheezing heard throughout. The patient is somewhat tachypne ic. No stridor. Gastrointestinal: Abdomen is soft, nontender, and nondistended. Positive bowel sounds. No guarding or rigidity. Extremities: No clubbing, cyanosis. The patient does have bilateral lower extremity edema. Skin: Chronic venous stasis changes, bilateral lower extremities. No rashes. Neuro: Cranial nerves 2-12 intact grossly. No focal neurological deficit. Speech is normal. Laboratory Data: Sodium 141, potassium 4.1, chloride 106, CO2 27, BUN 23, creatinine 0.7, glucose 18 1, calcium 8.8, and magnesium 2.2. WBC 5.8, H and H 11.8 and 34.8, platelets 260, and neutrophils 90 %. Influenza screen negative. Chest x-ray, I personally reviewed, shows cardiomegaly, vascular engo rgement, and prominent lung markings, not substantially different from previous. Assessment And Plan: A 57-year-old female with: 1.Acute COPD exacerbation. We will continue with IV steroids, nebulizer treatments. The patient quinones d ran out of her albuterol nebulizer medication without any refills. We will continue supplemental o xygen. Consult Dr. Bravo, Pulmonology. 2.Chronic lymphedema, bilateral lower extremities. The patient used to follow up with lymphedema cl in. We will continue supportive treatment. 3.Essential hypertension. Resume home medications as appropriate. 4.Morbid obesity, severe, with alveolar hypoventilation. 5.Diastolic congestive heart failure, chronic. 6.Obesity hypoventilation syndrome. 7.GERD without esophagitis. 8.Generalized anxiety disorder. Continue current treatment. Discharge in the next 24-48 hours. /CAROLINA Voice ID: [id number] Report ID: [id number]
[2018-03-03] MEDS: METHYLPREDNISOLONE 40 MG INJ IV SCH ×3 (00:51→12:59)
[2018-03-03] MEDS: CARVEDILOL 3.125 MG TAB PO SCH (05:31)
[2018-03-03] MEDS: guaiFENesin 100 MG/5 ML UCUP PO PRN (05:34)
[2018-03-03 06:09] LABS: Absolute Lymphocytes (CBC) 0.7 K/uL (0.7-4.9); Absolute Monocytes 0.2 K/uL (0.1-1.3); Absolute Neutrophil 9.1 K/uL (1.8-8.0); Hematocrit 34.3 % (36.0-45.0); Lymphocytes % 6.8 % (15.3-44.8); MCH 30.2 pg (27.0-35.0); MPV 8.4 fL (7.6-11.3); Monocytes % 2.2 % (3.3-12.3); RBC Red Blood Cell Count 3.85 M/uL (3.86-4.86)
[2018-03-03 06:26] LABS: Potassium 4.1 mmol/L (3.5-5.1)
[2018-03-03] MEDS ORDERED: PANTOPRAZOLE 40MG TABLET PO SCH (07:30)
[2018-03-03 08:00] LABS: Blood Morphology Comment NOT SEEN (NOT SEEN); Platelet Estimate ADEQ
[2018-03-03] MEDS ORDERED: LOSARTAN POTASSIUM 50 MG TABLET PO SCH (09:00)
[2018-03-03] MEDS: PROMOD 30 ML DOSE PO SCH (09:00)
[2018-03-03] MEDS ORDERED: HOME MED 1 EA UNK (Fluticasone/Vilanterol [Breo Ellipta 200-25 Mcg Inh] 1 PUFF) IH SCH (09:00)
[2018-03-03] MEDS ORDERED: CITALOPRAM 10 MG TABLET PO SCH (09:00)
[2018-03-03 09:41] VITALS: BP 131/63
[2018-03-03] MEDS: ENOXAPARIN 40 MG/0.4 ML SQ SCH (10:10)
[2018-03-03] MEDS: SPIRONOLACTONE 25 MG TABLET PO SCH (10:11)
[2018-03-03] MEDS: FUROSEMIDE 40 MG TABLET PO SCH (10:12)
[2018-03-03 11:54] VITALS: O2SAT 92
--- NOTE | 2018-03-03 12:02 | P.CNS ---
Date of Consult: 03/03/18 Reason for Consult: Shortness of breath Chief Complaint: COPD exacerbation History of Present Illness: Patient is 57 years of age admitted with shortness of breath has been become progressive recently she has had intermittent hospital admissions patient does take Breo at home and is compliant. In sick this time for about 4 days patient is been on home oxygen currently has a COPD she has not followed up with me for quite some time feeling better since admission she has also taken intermittent doses of steroids is never smoked exposed to a lot of secondhand smoke Patient has improved significantly since admission Allergies No Known Drug Allergies Allergy (Verified 01/11/18 23:11) uncoded Home Medications: Citalopram [Celexa*] 40 mg PO DAILY 09/16/15 Furosemide [Lasix] 80 mg PO BID 09/16/15 Fluticasone/Vilanterol [Breo Ellipta 200-25 Mcg INH] 1 puff IH DAILY 06/10/16 Pantoprazole [Protonix Tab*] 40 mg PO DAILY #30 tab 06/12/16 Carvedilol [Coreg*] 3.125 mg PO BID 6AM 6PM #60 tab 09/30/17 Spironolactone [Aldactone*] 25 mg PO BID #60 tab 09/30/17 ALPRAZolam [Xanax*] 0.25 mg PO BID PRN 01/11/18 Albuterol Sulfate [Proair Hfa] 1 puff IH QID 01/11/18 Losartan Potassium [Cozaar*] 50 mg PO DAILY 01/11/18 Tramadol HCl [Ultram] 50 mg PO Q4H PRN 01/11/18 - Past Medical/Surgical History Diabetic: No -: HTN -: CHF, diastolic dysfunction -: COPD -: Lymphadema -: Obesity hypoventilation syndrome -: Anxiety -: GERD -: Morbid obesity -: Secondhand smoke exposure -: Depression Psychosocial/ Personal History: Patient lives with her boyfriend - Family History Mother Medical History: Heart disease, Hypertension, Diabetes, Other (see notes) Notes: dementia Sister Medical History: Hypertension - Social History Smoking Status: Never smoker Alcohol use: Yes CD- Drugs: No Caffeine use: Yes Place of Residence: Home Review of Systems General: Weakness Respiratory: Cough, Shortness of Breath Cardiovascular: Edema (Patient has chronic lymphedema with underlying chronic cellulitis) Physical Examination Temp Pulse Resp BP Pulse Ox 97.0 F 66 20 131/63 92 03/03/18 08:00 03/03/18 10:12 03/03/18 08:00 03/03/18 10:12 03/03/18 08:00 General: Alert, Oriented x3 HEENT: Atraumatic Neck: Supple Respiratory: Clear to auscultation bilaterally, Friction rub Cardiovascular: Normal S1 S2, Edema (Chronic lymphedema) Gastrointestinal: Normal bowel sounds, Soft and benign - Problems (1) COPD exacerbation Onset Date: 06/11/16 Current Visit: No Status: Acute Plan: Patient is 57 years of age admitted with presumed presumed COPD exacerbation continue with Breo added in cruise hemodynamically stable chest x-ray bilateral haziness I suspect is from her underlying obesity oxygenation satisfactory patient has oxygen at home last echo was normal suspect she probably has underlying diastolic dysfunction patient is on spironolactone
[2018-03-03 13:04] VITALS: TEMP 98.4
--- NOTE | 2018-03-04 12:05 | DS ---
Date of Discharge: 03/03/2018 Blow Pit Helper: Dr. Bravo, Pulmonology. Admitting Diagnoses: 1.Acute chronic obstructive pulmonary disease exacerbation. 2.Morbid obesity. 3.Essential hypertension. 4.Lymphedema. 5.Chronic diastolic heart failure. 6.Generalized anxiety disorder. 7.Gastroesophageal reflux disease. Discharge Diagnoses: 1.Acute chronic obstructive pulmonary disease exacerbation, improved. 2.Chronic lymphedema of bilateral lower extremities. 3.Essential hypertension. 4.Morbid obesity, severe with hypoventilation. 5.Diastolic congestive heart failure, chronic. 6.Obesity hypoventilation syndrome. 7.Gastroesophageal reflux disease without esophagitis. 8.Generalized anxiety disorder. Hospital Course: The patient is a 57-year-old female, who has multiple medical conditions including morbid obesity, hypertension, lymphedema, COPD, heart failure, on chronic oxygen 3 to 4 L by nasal ca nnula, comes in with cough, shortness of breath. The patient was found to have COPD exacerbation. H er chest x-ray showed cardiomegaly and prominent lung markings, not different than previous. The pat ient was started on IV steroids and nebulizer treatments. The patient had been out of her albuterol nebulizer. The patient was seen by Dr. Bravo. She had improvement in her symptoms. Her wheezing improved as well. The patient was then cleared for discharge. She did not have any signs of sepsis . Procalcitonin and lactate were negative. No elevated white blood cell count. The patient was the n discharged in a stable condition. Activity: No strenuous activity. Diet: Heart healthy, low-sodium fluid-restricted diet. Followup: Follow up with primary care physician in 2 to 3 days. Follow up with Family Dentist, Dr. Raisa simmons in 2 weeks. Return to ER for worsening condition. Medications: As per medication reconciliation list. Will be on a steroid taper as well as Incruse E llipta, which will be added to her home medication list. Physical Examination: General: Awake, alert, oriented, no acute distress, morbidly obese female. CV: S1, S2. No murmurs. Respiratory: Moving air well bilaterally. Minimal wheezing. Gastrointestinal: Abdomen is soft, nontender, nondistended. Positive bowel sounds. Extremities: No clubbing, cyanosis. The patient does have bilateral lower extremity edema. Skin: Bilateral lower extremity chronic venous stasis. Neurologic: Nonfocal. Total time spent discharging the patient was 38 minutes. /CAROLINA Voice ID: [id number] Report ID: [id number]
== END 2018-03-03 15:06 | disposition home or self-care (01) | DRG 191 ==
LOC: ER 16:17 → ERHOLD 17:56 → 2ND 19:33
PROVIDERS: ADMIT Family Medicine; ATTEND Family Medicine
DX: J44.1 Chronic obstructive pulmonary disease with (acute) exacerbation (principal); E66.2 Morbid (severe) obesity with alveolar hypoventilation; I50.32 Chronic diastolic (congestive) heart failure; Z68.44 Body mass index [BMI] 60.0-69.9, adult; I89.0 Lymphedema, not elsewhere classified; I10 Essential (primary) hypertension; I11.0 Hypertensive heart disease with heart failure; K21.9 Gastro-esophageal reflux disease without esophagitis; F41.1 Generalized anxiety disorder; Z99.81 Dependence on supplemental oxygen; Z87.891 Personal history of nicotine dependence
CPT/HCPCS: 36415; 71045; 80048; 80076; 83605; 83735; 83880; 84145; 84484; 85025; 85610; 87804; 93005; 94640; 94760; 96365; 96366; 96372; 96375; 99285; J1650; J2920; J2930; J7030

== ENCOUNTER 2018-03-30 13:09 | Emergency (ER) | payer OTHER ==
--- OUTSIDE RECORDS SUMMARY | 2018-03-30 13:11 | XMS REPORT | Clinical Summary ---
:1960 Author Organization [facility] Address [address] [place] [address] Care Team Providers Name Role Phone Asked, [...] Not on file Results Not on fileafter 03/29/2017 Insurance Payer Benefit Plan / Group Subscriber ID Type Phone Address AETNA MEDICARE AETNA MEDICARE HMO/PPO [facility] xxxxxxxx HMO Advance Directives Patient has advance care planning documents, and code status on file. For more information, please contact:Rafael Montague[address] [place] [id number] Code Status Date Activated Date Inactivated Comments Full Code 09/22/2016 3:09 AM 09/26/2016 5:53 PM Code Status decision reached by: Patient
--- OUTSIDE RECORDS SUMMARY | 2018-03-30 13:11 | XMS REPORT ---
[...] Dosage Furosemide [facility] 61046982626 80 MG Orally Active 1 tablet Twice a day Results No Known Results Summary Purpose [facility] AM AT Submission
--- OUTSIDE RECORDS SUMMARY | 2018-03-30 13:11 | XMS REPORT ---
:1960 [facility] Address [address] [place] [address] Dr. Turcios [address] [place] [id number] Care Team Providers Name Role Phone Unavailable Unavailable Unavailable Problems This patient has no known problems. Allergies, Adverse Reactions, Alerts This patient has no known allergies or adverse reactions. Medications This patient has no known medications.
--- OUTSIDE RECORDS SUMMARY | 2018-03-30 13:11 | XMS REPORT ---
[...] End Status Dosage System Date Date Metolazone [facility] 99707685685 2.5 MG Orally M, Active 1 tablet W, F. Take 30 minutes before taking alsix in AM. Ventolin HFA [facility] 13715902707 108 (90 Base) Active 2 puffs MCG/ACT as needed Inhalation every 6 hrs -81 ND 09624973471 81 MG Orally Active 1 tablet Once a day Ultram [facility] 57629272678 50 MG Orally Sept Active 1 tablet once a day as 24, as needed needed 2017 Furosemide ND 60147003528 80 MG Orally Active 1 tablet Once a day Breo Ellipta ND 54538894102 100-25 MCG/INH Sept Active 1 puff Inhalation Once 24, a day 2017 Pantoprazole ND 69913599158 40 MG Orally Active 1 tablet Sodium Once a day Atenolol [facility] 77028457275 50 MG Orally Active 1 tablet Once a day Klor-Con M10 [facility] 17384591849 10 MEQ Orally Active 1 tablet Twice a day with food Alprazolam [facility] 82211967127 0.25 MG Orally Active 1 tablet Twice a day HydrALAZINE HCl [facility] 24725261264 25 MG Orally Active 1 tablet Three times a with food day Cozaar [facility] 01681626859 50 MG Orally Active 1 tablet Once a day Citalopram [facility] 72589674700 40 MG Orally Active 1 tablet Hydrobromide Once a day Results No Known Results Summary Purpose eClinicalWorks Submission
--- OUTSIDE RECORDS SUMMARY | 2018-03-30 13:12 | XMS REPORT ---
[...] Status Dosage System Date HydrALAZINE HCl ND 87408429068 25 MG Orally Active 1 tablet Three times a with food day Vitamin B12 ND 23521452875 1000 MCG Orally Active 1 tablet Once a day Spironolactone ND 69022141827 25 MG Orally Oct Active 1 tablet Twice a day with food 2017 Carvedilol ND 00717064318 3.125 MG Orally Active as BID directed Klor-Con M10 ND 74825381683 10 MEQ Orally Inactive 1 tablet Twice a day with food Cozaar ND 10334674470 50 MG Orally Active 1 tablet Once a day Citalopram [facility] 38046132899 40 MG Orally Active 1 tablet Hydrobromide Once a day Furosemide ND 60115760775 80 MG Orally Active 1 tablet Twice a day Breo Ellipta [facility] 29580390331 100-25 MCG/INH Apr Active 1 puff Inhalation Once 08, a day 2018 Atenolol [facility] 92190918443 50 MG Orally Inactive 1 tablet Once a day -81 [facility] 50907441437 81 MG Orally Active 1 tablet Once a day Pantoprazole [facility] 03469414368 40 MG Orally Active 1 tablet Sodium Once a day Metolazone [facility] 48414619104 2.5 MG Orally Inactive 1 tablet M, W, F. Take 30 minutes before taking alsix in AM. Ultram [facility] 01749169761 50 MG Orally Apr Active 1 tablet once a day as 08, as needed needed 2018 Alprazolam [facility] 82021528812 0.25 MG Orally Active 1 tablet Twice a day PRN SEVERE ANXIETY Ventolin HFA [facility] 46120377301 108 (90 Base) Active 2 puffs as MCG/ACT needed Inhalation every 6 hrs Results No Known Results Summary Purpose eClinicalWorks Submission
--- OUTSIDE RECORDS SUMMARY | 2018-03-30 13:12 | XMS REPORT ---
[...] Status Dosage System Date Date Carvedilol ND 97068262774 3.125 MG Orally Active as directed BID Aspir-81 ND 99943593552 81 MG Orally Active 1 tablet Once a day Ultram ND 18882667155 50 MG Orally Active 1 tablet as once a day as needed needed HydrALAZINE HCl ND 48165936133 25 MG Orally Active 1 tablet Three times a with food day Cozaar ND 78021815317 50 MG Orally Active 1 tablet Once a day Ventolin HFA ND 60440774876 108 (90 Base) Active 2 puffs as MCG/ACT needed Inhalation every 6 hrs Breo Ellipta [facility] 93046847921 100-25 MCG/INH Active 1 puff Inhalation Once a day Furosemide [facility] 88614349799 80 MG Orally Active 1 tablet Twice a day Citalopram [facility] 57396235196 40 MG Orally Active 1 tablet Hydrobromide Once a day Alprazolam [facility] 02926969382 0.25 MG Orally Active 1 tablet Twice a day PRN SEVERE ANXIETY Pantoprazole [facility] 32586309581 40 MG Orally Active 1 tablet Sodium Once a day Vitamin B12 [facility] 27286707303 1000 MCG Orally Active 1 tablet Once a day Results No Known Results Summary Purpose eClinicalWorks Submission
[2018-03-30] MEDS ORDERED: ALBUTEROL 2.5 MG/3 ML NEB SOL ONE (15:09)
[2018-03-30] MEDS ORDERED: IPRATROPIUM BROM 0.5MG/2.5ML ONE (15:09)
[2018-03-30] MEDS ORDERED: HYDROCODONE/CHLORPHEN 5 ML/OSYR ONE (15:28)
--- NOTE | 2018-03-30 15:53 | RAD REPORT ---
EXAM DESCRIPTION: Bailey Hastings And Judy (2 Views)03/30/2018 3:01 pm CLINICAL HISTORY: Cough COMPARISON: February 2002 FINDINGS: Areas of subsegmental atelectasis are present the lungs bilaterally. A lung consolidation is not noted. The heart is mildly enlarged
--- NOTE | 2018-03-30 15:56 | ER ---
Nurse's Notes [facility] Name: Gaye Castro Age: 57 yrs Sex: Female : 1960 Arrival Date: 03/30/2018 Time: 13:12 Bed 27 Private MD: Perez Vera Diagnosis: Bronchitis, not specified as acute or chronic Presentation: 03/30 13:55 Presenting complaint: Patient states: dean ear pain, sore throat X 3 days, productive iw cough X 3 days. Transition of care: patient was not received from another setting of care. Onset of symptoms was March 30, 2018. Risk Assessment: Do you want to hurt yourself or someone else? Patient reports no desire to harm self or others. Initial Sepsis Screen: Does the patient meet any 2 criteria? No. Patient's initial sepsis screen is negative. Does the patient have a suspected source of infection? No. Patient's initial sepsis screen is negative. Care prior to arrival: None. 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: 13:56 LMP N/A - Post-menopause iw Historical: - Allergies: 14:00 Ibuprofen; iw - Home Meds: 14:00 albuterol sulfate 2.5 mg/0.5 mL Inhl nebu 0.5 mL 4 times per day [Active]; Klor-Con M20 iw 20 mEq Oral TbTQ 1 tab [Active]; alprazolam 0.25 mg Oral tab 1 tab once a day [Active]; spironolactone 25 mg Oral tab 1 tab 2 times per day [Active]; citalopram 40 mg tab 1 tab once daily [Active]; Lasix 80 mg Oral tab 1 tab 2 times per day [Active]; pantoprazole 40 mg Oral TbEC 1 tab once daily [Active]; carvedilol 3.125 mg oral tab 1 tab 2 times per day [Active]; Breo Ellipta inhalation 1 puff once daily [Active]; - PMHx: 14:00 Anxiety; CHF; COPD; Depression; Hypertension; hypoxia; lymphedema; Pneumonia; Sleep iw Apnea; small heart and lungs; uses home o2; - PSHx: 14:00 None; iw - Immunization history:: Adult Immunizations up to date. - Social history:: Smoking status: Patient/guardian denies using tobacco. - Ebola Screening: : Patient negative for fever greater than or equal to 101.5 degrees Fahrenheit, and additional compatible Ebola Virus Disease symptoms Patient denies exposure to infectious person Patient denies travel to an Ebola-affected area in the 21 days before illness onset No symptoms or risks identified at this time. Screenin:50 Abuse screen: Denies threats or abuse. Nutritional screening: No deficits noted. tl3 Tuberculosis screening: No symptoms or risk factors identified. Fall Risk Ambulatory Aid- Crutches/Cane/Walker (15 pts). Assessment: 14:50 General: Appears uncomfortable, obese, well groomed, well developed, well nourished, tl3 Behavior is calm, cooperative, appropriate for age. Pain: Complains of pain in throat. Neuro: Level of Consciousness is awake, alert, obeys commands, Oriented to person, place, time, situation, Appropriate for age. Respiratory: Airway is patent Respiratory effort is even, unlabored, Respiratory pattern is regular, symmetrical, Breath sounds are coarse bilaterally. EENT: Throat is reddened. 16:14 Reassessment: Patient appears in no apparent distress at this time. No changes from tl3 previously documented assessment. Patient and/or family updated on plan of care and expected duration. Pain level reassessed. Patient is alert, oriented x 3, equal unlabored respirations, skin warm/dry/pink. Vital Signs: 13:56 BP 125 / 74; Pulse 90; Resp 24 S; Temp 97.9(O); Pulse Ox 93% on 4 lpm NC; Weight 132 iw kg; Height 5 ft. (152.40 cm); Pain 10/10; 16:14 BP 117 / 65; Pulse 77; Resp 20; Pulse Ox 97% on R/A; tl3 13:56 Body Mass Index 56.83 (132.00 kg, 152.40 cm) iw ED Course: 13:12 Patient arrived in ED. rg4 13:13 Perez Vera DO is Private Physician. rg4 13:26 Dung Boothe MD is Attending Physician. tw4 13:56 Triage completed. iw 14:49 Stacie Calzada, RN is Primary Nurse. tl3 14:50 Patient has correct armband on for positive identification. Bed in low position. Call tl3 light in reach. Side rails up X 1. 14:50 No provider procedures requiring assistance completed. Patient did not have IV access tl3 during this emergency room visit. 14:53 X-ray completed. Patient tolerated procedure well. az 14:54 Chest Pa And Lat (2 Views) XRAY In Process Unspecified. EDMS 15:09 Strep swab sent to lab. X-ray(s) taken. tl3 15:54 Perez Vera DO is Referral Physician. tw4 16:17 Arm band placed on right wrist. tl3 Administered Medications: 14:59 Drug: Albuterol - atroVENT (3:1) (2.5 mg - 0.5 mg) 3 ml Route: Nebulizer; tl3 16:16 Follow up: Response: No adverse reaction; Marked relief of symptoms tl3 15:21 Drug: Tussionex Pennkinetic ER 5 ml Route: PO; tl3 16:15 Follow up: Response: No adverse reaction; Marked relief of symptoms tl3 Outcome: 15:55 Discharge ordered by . tw4 16:14 Discharged to home ambulatory. tl3 16:14 Condition: stable 16:14 Discharge instructions given to patient, family, Instructed on discharge instructions, follow up and referral plans. medication usage, Demonstrated understanding of instructions, follow-up care, medications, Prescriptions given X 3. 16:18 Patient left the ED. tl3 Signatures: Dispatcher [employer] Haydee Cornejo, RN Gabby Espana Dung Oliveira MD MD tw4 Stacie Calzada RN RN tl3 Millicent Marr pa
--- NOTE | 2018-03-30 15:56 | EDPHYS ---
Physician Documentation [facility] Name: Gaye Castro Age: 57 yrs Sex: Female : 1960 Arrival Date: 03/30/2018 Time: 13:12 Bed 27 Private MD: [facility] ED Physician Dung Boothe HPI: 03/30 15:15 This 57 yrs old Female presents to ER via Ambulatory with complaints of Sore tw4 Throat, Fever. 15:15 The patient presents with sore throat. The patient describes throat pain as dry. Onset: tw4 The symptoms/episode began/occurred today. Severity of symptoms: At their worst the symptoms were moderate, in the emergency department the symptoms are unchanged. The patient has not experienced similar symptoms in the past. 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: 13:56 LMP N/A - Post-menopause iw Historical: - Allergies: 14:00 Ibuprofen; iw - Home Meds: 14:00 albuterol sulfate 2.5 mg/0.5 mL Inhl nebu 0.5 mL 4 times per day [Active]; Klor-Con M20 iw 20 mEq Oral TbTQ 1 tab [Active]; alprazolam 0.25 mg Oral tab 1 tab once a day [Active]; spironolactone 25 mg Oral tab 1 tab 2 times per day [Active]; citalopram 40 mg tab 1 tab once daily [Active]; Lasix 80 mg Oral tab 1 tab 2 times per day [Active]; pantoprazole 40 mg Oral TbEC 1 tab once daily [Active]; carvedilol 3.125 mg oral tab 1 tab 2 times per day [Active]; Breo Ellipta inhalation 1 puff once daily [Active]; - PMHx: 14:00 Anxiety; CHF; COPD; Depression; Hypertension; hypoxia; lymphedema; Pneumonia; Sleep iw Apnea; small heart and lungs; uses home o2; - PSHx: 14:00 None; iw - Immunization history:: Adult Immunizations up to date. - Social history:: Smoking status: Patient/guardian denies using tobacco. - Ebola Screening: : Patient negative for fever greater than or equal to 101.5 degrees Fahrenheit, and additional compatible Ebola Virus Disease symptoms Patient denies exposure to infectious person Patient denies travel to an Ebola-affected area in the 21 days before illness onset No symptoms or risks identified at this time. ROS: 15:15 Constitutional: Negative for fever, chills, and weight loss, Eyes: Negative for injury, tw4 pain, redness, and discharge, Cardiovascular: Negative for chest pain, palpitations, and edema, Respiratory: Negative for shortness of breath, cough, wheezing, and pleuritic chest pain, Abdomen/GI: Negative for abdominal pain, nausea, vomiting, diarrhea, and constipation, Back: Negative for injury and pain, MS/Extremity: Negative for injury and deformity, Skin: Negative for injury, rash, and discoloration, Neuro: Negative for headache, weakness, numbness, tingling, and seizure. Exam: 15:15 Constitutional: This is a well developed, well nourished patient who is awake, alert, tw4 and in no acute distress. Head/Face: Normocephalic, atraumatic. Chest/axilla: Normal chest wall appearance and motion. Nontender with no deformity. No lesions are appreciated. Cardiovascular: Regular rate and rhythm with a normal S1 and S2. No gallops, murmurs, or rubs. Normal PMI, no JVD. No pulse deficits. Respiratory: Lungs have equal breath sounds bilaterally, clear to auscultation and percussion. No rales, rhonchi or wheezes noted. No increased work of breathing, no retractions or nasal flaring. Abdomen/GI: Soft, non-tender, with normal bowel sounds. No distension or tympany. No guarding or rebound. No evidence of tenderness throughout. 15:15 ENT: Posterior pharynx: erythema. Vital Signs: 13:56 BP 125 / 74; Pulse 90; Resp 24 S; Temp 97.9(O); Pulse Ox 93% on 4 lpm NC; Weight 132 iw kg; Height 5 ft. (152.40 cm); Pain 10/10; 16:14 BP 117 / 65; Pulse 77; Resp 20; Pulse Ox 97% on R/A; tl3 13:56 Body Mass Index 56.83 (132.00 kg, 152.40 cm) iw MDM: 14:23 Patient medically screened. tw4 15:53 Differential diagnosis: eleonora's angina, lymphoma, peritonsillar abscess. Data tw4 reviewed: vital signs, nurses notes. Data interpreted: monitoring and evaluation advisor:. Test interpretation: by ED physician or midlevel provider: plain radiologic studies. Counseling: I had a detailed discussion with the patient and/or guardian regarding: the historical points, exam findings, and any diagnostic results supporting the discharge/admit diagnosis. Special discussion: I discussed with the patient/guardian in detail that at this point there is no indication for admission to the hospital. It is understood, however, that if the symptoms persist or worsen the patient needs to return immediately for re-evaluation. 03/30 13:23 Order name: Strep; Complete Time: 15:53 tw4 03/30 15:34 Order name: Throat Culture EDMS 03/30 14:40 Order name: Chest Pa And Lat (2 Views) XRAY tw4 Administered Medications: 14:59 Drug: Albuterol - atroVENT (3:1) (2.5 mg - 0.5 mg) 3 ml Route: Nebulizer; tl3 16:16 Follow up: Response: No adverse reaction; Marked relief of symptoms tl3 15:21 Drug: Tussionex Pennkinetic ER 5 ml Route: PO; tl3 16:15 Follow up: Response: No adverse reaction; Marked relief of symptoms tl3 Disposition: 03/30/18 15:55 Discharged to Home. Impression: Bronchitis, not specified as acute or chronic. - Condition is Stable. - Discharge Instructions: Acute Bronchitis, Adult. - Prescriptions for Tessalon Perles 100 mg Oral Capsule - take 1 capsule by ORAL route every 8 hours As needed; 15 capsule. Zithromax Z- Colt 250 mg Oral Tablet - take 1 tablet by ORAL route as directed for 5 days Day 1 - take two (2) tablets one time. Day 2, 3, 4 , 5 take one (1) tablet once daily.; 6 tablet. Albuterol Sulfate 90 mcg/actuation - inhale 1-2 puff by INHALATION route every 4-6 hours; 1 Inhaler. Guaifenesin AC 10- 100 mg/5 mL Oral Liquid - take 10 milliliter by ORAL route every 4 hours As needed; 240 milliliter. - Medication Reconciliation Form, Thank You Letter, Antibiotic Education, Prescription Opioid Use form. - Follow up: Perez Vera DO; When: Upon discharge from the Emergency Department; Reason: If symptoms return, Recheck today's complaints, Continuance of care. - Problem is new. - Symptoms have improved. Signatures: Dispatcher [employer] Haydee Cornejo, RN RN iw Dung Boothe MD MD tw4 Stacie Calzada RN RN tl3 Corrections: (The following items were deleted from the chart) 16:18 15:55 03/30/2018 15:55 Discharged to Home. Impression: Bronchitis, not specified as tl3 acute or chronic. Condition is Stable. Forms are Medication Reconciliation Form, Thank You Letter, Antibiotic Education, Prescription Opioid Use. Follow up: Perez Vera; When: Upon discharge from the Emergency Department; Reason: If symptoms return, Recheck today's complaints, Continuance of care. Problem is new. Symptoms have improved. tw4
[2018-03-30 16:39] VITALS: TEMP 97.9
[2018-03-30 16:41] VITALS: BP 117/65; O2SAT 97
== END 2018-03-30 16:18 | disposition home or self-care (01) ==
LOC: ER 13:09
DX: J40 Bronchitis, not specified as acute or chronic (principal); I10 Essential (primary) hypertension; J44.9 Chronic obstructive pulmonary disease, unspecified; F41.9 Anxiety disorder, unspecified; I50.9 Heart failure, unspecified; F32.9 Major depressive disorder, single episode, unspecified; Z88.6 Allergy status to analgesic agent
CPT/HCPCS: 71046; 87070; 87081; 94640; 99284

== ENCOUNTER 2018-07-21 16:34 | Emergency (ER) | payer OTHER ==
--- OUTSIDE RECORDS SUMMARY | 2018-07-21 16:36 | XMS REPORT | Clinical Summary ---
:1960 Author Organization [facility] Address [address] [place] [address] Care Team Providers Name Role Phone Asked, [...] Not on file Results Not on fileafter 07/20/2017 Insurance Payer Benefit Plan / Group Subscriber ID Type Phone Address AETNA MEDICARE AETNA MEDICARE HMO/PPO [facility] xxxxxxxx HMO Advance Directives Patient has advance care planning documents, and code status on file. For more information, please contact:Rafael Montague[address] [place] [id number] Code Status Date Activated Date Inactivated Comments Full Code 09/22/2016 3:09 AM 09/26/2016 5:53 PM Code Status decision reached by: Patient
--- OUTSIDE RECORDS SUMMARY | 2018-07-21 16:36 | XMS REPORT ---
:1960 [facility] Address [address] [place] [address] [address] [place] [address] Care Team Providers Name Role Phone Unavailable Unavailable Unavailable Problems This patient has no known problems. Allergies, Adverse Reactions, Alerts This patient has no known allergies or adverse reactions. Medications This patient has no known medications. Results Test Description Test Time Test Comments Text Results Atomic Results Result Comments BREAST ULTRASOUND 2018-06-25 11:07:59 - BREAST ULTRASOUND BILATERAL BILATERALULTRASOUND OF BOTH BREASTS AND BOTH AXILLA: 06/25/2018CLINICAL: Abnormal mammogram. Comparison is made to exam dated 04/29/2018 mammogram - [facility]. Real-time ultrasound of both breasts and both axilla was performed. No abnormalities were seen sonographically in either breast or either axilla. Clinical breast exam was unremarkable.IMPRESSION: PROBABLY BENIGN - FOLLOW-UP RECOMMENDEDThe small round smooth nodules appear to be small cysts, however, since there are no prior mammograms a follow-up mammogram in 6 months is recommended to demonstrate stability. Sandra Tolentino M.D. dm/:06/25/2018 11:07:59 Birth Attendant: Lyla SALAS, [facility]-FWletter sent: Short Term Follow Up Ultrasound BI-RADS: 3 Probably benign SCR MAMM BILATERAL TESHA 2018-05-10 16:41:30 - SCR MAMM BILATERAL TESHA CAD CAD DIGITAL DIGITALBILATERAL [facility] DIGITAL SCREENING MAMMOGRAM 3D/2D WITH CAD: 04/29/2018CLINICAL: Asymptomatic. Digital breast tomosynthesis was performed in addition to routine CC and MLO views. Current mammographic images were evaluated by either a OpenSpiritP M-Vu or an iCAD version 7.2 computer aided detection system. No prior exams were available for comparison. There are scattered fibroglandular tissues in both breasts. Multiple bilateral areas of asymmetry in focal asymmetry are noted. The largest focal asymmetry measures up to 1.4 cm in its located in the left breast at approximately 6 o'clock, 12 cm from the nipple at a posterior depth. No suspicious architectural distortion, malignant type calcification, or lymph node abnormality detected. Benign secretory calcifications are noted bilaterally.IMPRESSION: INCOMPLETE ASSESSMENT: ADDITIONAL IMAGING EVALUATION RECOMMENDEDFurther evaluation is pending; breast ultrasound to be performed today. Tory Koo M.D. cc/:05/10/2018 16:41:30 Entry: cc - 05/11/2018 14:26:43Imaging Technologist: Marya Hartman MM, [facility] sent: Additional Imaging Mammogram BI-RADS: 0 Indeterminate SCR MAMM BILATERAL TESHA 2018-05-10 16:41:30 AMENDMENT: 05/18/2018 DRAGAN Broderick M.D. The statement:IMPRESSION: INCOMPLETE ASSESSMENT: ADDITIONAL IMAGING EVALUATION RECOMMENDEDFurther evaluation is pending; breast ultrasound to be performed today. in the above examination is incorrect. The correct statement is:IMPRESSION: INCOMPLETE ASSESSMENT: ADDITIONAL IMAGING EVALUATION RECOMMENDEDThe multiple bilateral areas of asymmetry in focal asymmetry are indeterminate. Comparison to previous mammograms is recommended and if the findings are new or priors are unobtainable and ultrasound should be performed.Amended BI-RADS: 0 Indeterminate
--- OUTSIDE RECORDS SUMMARY | 2018-07-21 16:37 | XMS REPORT ---
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 Problem Back pain M54.9 Active Assessment Chronic diastolic heart failure I50.32 Active Assessment Localized pruritus L29.9 Active Assessment Benign essential HTN I10 Active Assessment Chronic bronchitis with COPD J44.9 Active (chronic obstructive pulmonary disease) Problem Benign essential HTN I10 Active Assessment Hives L50.9 Active Problem Chronic bronchitis with COPD J44.9 Active (chronic obstructive pulmonary disease) Assessment Acute bronchitis, unspecified J20.9 Active organism Problem Allergic rhinitis, seasonal J30.2 Active Medications Medication Code Code Instructions Start End Status Dosage System Date [facility] 82878686785 81 MG Orally Active 1 tablet Once a day Furosemide [facility] 54664403400 80 MG Orally Active 1 tablet Twice a day Ultram [facility] 61371172848 50 MG Orally Active 1 tablet once a day as as needed needed Vitamin B12 ND 37504454792 1000 MCG Orally Active 1 tablet Once a day Metolazone [facility] 65552735414 2.5 MG Orally Active 1 tablet Once a day Citalopram [facility] 22035589557 40 MG Orally Active 1 tablet Hydrobromide Once a day Breo Ellipta [facility] 57612180047 100-25 MCG/INH Active 1 puff Inhalation Once a day HydrALAZINE HCl [facility] 15005986566 25 MG Orally Active 1 tablet Three times a with food day Cozaar [facility] 52763276951 50 MG Orally Active 1 tablet Once a day Pantoprazole [facility] 48369933223 40 MG Orally Active 1 tablet Sodium Once a day Spironolactone [facility] 51736996862 25MG Orally Active 1 tablet Twice a day with food Citalopram [facility] 98109195790 40 MG Orally Active 1 tablet Hydrobromide Once a day Alprazolam [facility] 01860034897 0.25 MG Orally Active 1 tablet Twice a day PRN SEVERE ANXIETY Ventolin HFA [facility] 70905069379 108 (90 Base) Active 2 puffs as MCG/ACT needed Inhalation every 6 hrs HydrOXYzine HCl [facility] 87718720295 25 MG Orally Apr 07, Active 1 tablet every 8 hrs PRN 2019 as needed Itching Carvedilol [facility] 92245562347 3.125 MG Orally Active as BID directed Results No Known Results Summary Purpose eClinicalWorks Submission
--- OUTSIDE RECORDS SUMMARY | 2018-07-21 16:37 | XMS REPORT ---
:1960 Author Organization eClinicalWorks Care Team Providers Name Role Phone Chuy [facility] Provider Role Unavailable Allergies, Adverse Reactions, Alerts Substance Reaction Event Type N.K.D.A. 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 85172258753 108 (90 Base) Active 2 puffs as MCG/ACT needed Inhalation every 6 hrs HydrOXYzine ND 04450913556 25 MG Orally Apr 22, Active 1 capsule Pamoate every 8 hrs 2019 as needed Pantoprazole [facility] 81560826043 40 MG Orally Active 1 tablet Sodium Once a day Cozaar ND 71330019766 50 MG Orally Active 1 tablet Once a day Spironolactone ND 92751856893 25MG Orally Active 1 tablet Twice a day with food Citalopram [facility] 07278806524 40 MG Orally Active 1 tablet Hydrobromide Once a day Augmentin [facility] 09880705966 875-125 MG May 27June Active 1 tablet Orally every 2018 03, hrs 2019 Aspir-[address] [facility] 75437820330 81 MG Orally Active 1 tablet Once a day Furosemide ND 76886912378 80 MG Orally Active 1 tablet Twice a day Vitamin B12 [facility] 25812358296 1000 MCG Orally Active 1 tablet Once a day HydrALAZINE HCl [facility] 75405545588 25 MG Orally Active 1 tablet Three times a with food day Metolazone [facility] 74378953256 2.5 MG Orally Active 1 tablet Once a day Carvedilol [facility] 31396734374 3.125 MG Orally Active as BID directed Citalopram [facility] 58849047965 40 MG Orally Active 1 tablet Hydrobromide Once a day Breo Ellipta [facility] 48716168127 100-25 MCG/INH Active 1 puff Inhalation Once a day Results No Known Results Summary Purpose eClinicalWorks Submission
--- OUTSIDE RECORDS SUMMARY | 2018-07-21 16:37 | XMS REPORT ---
[...] Status Dosage System Date HydrALAZINE HCl ND 88085082177 25 MG Orally Active 1 tablet Three times a with food day Vitamin B12 ND 47217243235 1000 MCG Orally Active 1 tablet Once a day Spironolactone ND 47030277062 25 MG Orally Oct Active 1 tablet Twice a day with food 2017 Carvedilol ND 67981873988 3.125 MG Orally Active as BID directed Klor-Con M10 ND 64546226666 10 MEQ Orally Inactive 1 tablet Twice a day with food Cozaar ND 53526093086 50 MG Orally Active 1 tablet Once a day Citalopram [facility] 82910971156 40 MG Orally Active 1 tablet Hydrobromide Once a day Furosemide ND 21504546902 80 MG Orally Active 1 tablet Twice a day Breo Ellipta [facility] 73959956248 100-25 MCG/INH Apr Active 1 puff Inhalation Once 08, a day 2018 Atenolol [facility] 35876381818 50 MG Orally Inactive 1 tablet Once a day -81 [facility] 30898077749 81 MG Orally Active 1 tablet Once a day Pantoprazole [facility] 15339355997 40 MG Orally Active 1 tablet Sodium Once a day Metolazone [facility] 57927378690 2.5 MG Orally Inactive 1 tablet M, W, F. Take 30 minutes before taking alsix in AM. Ultram [facility] 31505210391 50 MG Orally Apr Active 1 tablet once a day as 08, as needed needed 2018 Alprazolam [facility] 86019515316 0.25 MG Orally Active 1 tablet Twice a day PRN SEVERE ANXIETY Ventolin HFA [facility] 48526603512 108 (90 Base) Active 2 puffs as MCG/ACT needed Inhalation every 6 hrs Results No Known Results Summary Purpose eClinicalWorks Submission
--- OUTSIDE RECORDS SUMMARY | 2018-07-21 16:37 | XMS REPORT ---
:1960 Author Organization eClinicalWorks Care Team Providers Name Role Phone Perez Vera Provider Role Unavailable Allergies, Adverse Reactions, Alerts Substance Reaction Event Type N.K.D.A. 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 Assessment Allergic rhinitis, seasonal J30.2 Active Assessment O2 dependent Z99.81 Active Assessment Gastro-esophageal reflux disease K21.9 Active without esophagitis Problem Allergic rhinitis, seasonal J30.2 Active Assessment Back pain M54.9 Active Problem Hyperlipidemia, mixed E78.2 Active Assessment Lymphedema I89.0 Active Problem Gastro-esophageal reflux disease K21.9 Active without esophagitis Problem Shingles B02.9 Active Problem Depression with anxiety F41.8 Active Problem DNR (do not resuscitate) Z66 Active Problem Chronic diastolic heart failure I50.32 Active Assessment Left knee pain, unspecified M25.562 Active chronicity Assessment Hyperlipidemia, mixed E78.2 Active Problem Adult BMI 50.0-59.9 kg/sq m Z68.43 Active Assessment Depression with anxiety F41.8 Active Problem Back pain M54.9 Active Problem Lymphedema I89.0 Active Problem O2 dependent Z99.81 Active Problem 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 Assessment Chronic bronchitis with COPD J44.9 Active (chronic obstructive pulmonary disease) Assessment Medicare annual wellness visit, Z00.00 Active subsequent Assessment Benign essential HTN I10 Active Assessment DNR (do not resuscitate) Z66 Active Problem Benign essential HTN I10 Active Problem Chronic bronchitis with COPD J44.9 Active (chronic obstructive pulmonary disease) Assessment Chronic diastolic heart failure I50.32 Active Medications Medication Code Code Instructions Start End Status Dosage System Date Date Alprazolam [facility] 77506204468 0.25 MG Orally Inactive 1 tablet Twice a day PRN SEVERE ANXIETY Carvedilol [facility] 02674054965 3.125 MG Orally Active as BID directed Spironolactone ND 60495102054 25MG Orally Active 1 tablet Twice a day with food Breo Ellipta [facility] 83901885167 100-25 MCG/INH Active 1 puff Inhalation Once a day Pantoprazole [facility] 38519783582 40 MG Orally Active 1 tablet Sodium Once a day Ventolin HFA [facility] 49483136762 108 (90 Base) Active 2 puffs as MCG/ACT needed Inhalation every 6 hrs Citalopram [facility] 97096091208 40 MG Orally Active 1 tablet Hydrobromide Once a day Citalopram [facility] 96928943068 40 MG Orally Active 1 tablet Hydrobromide Once a day Cozaar [facility] 27533397250 50 MG Orally Active 1 tablet Once a day HydrOXYzine ND 13089748602 25 MG Orally Apr 22, Active 1 capsule Pamoate every 8 hrs 2019 as needed Ultram ND 11603913212 50 MG Orally May Active 1 tablet once a day as 16, as needed needed 2019 Aspir-81 [facility] 26107844260 81 MG Orally Active 1 tablet Once a day Furosemide ND 96854255860 80 MG Orally Active 1 tablet Twice a day Metolazone [facility] 74912852819 2.5 MG Orally Active 1 tablet Once a day Vitamin B12 [facility] 62633448003 1000 MCG Orally Active 1 tablet Once a day HydrALAZINE HCl [facility] 91747749808 25 MG Orally Active 1 tablet Three times a with food day Results No Known Results Summary Purpose eClinicalWorks Submission
--- OUTSIDE RECORDS SUMMARY | 2018-07-21 16:37 | XMS REPORT ---
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
--- OUTSIDE RECORDS SUMMARY | 2018-07-21 16:37 | XMS REPORT ---
[...] Status Dosage System Date Date Carvedilol ND 34182670010 3.125 MG Orally Active as directed BID Aspir-81 ND 70360066173 81 MG Orally Active 1 tablet Once a day Ultram ND 60877248610 50 MG Orally Active 1 tablet as once a day as needed needed HydrALAZINE HCl ND 68874596082 25 MG Orally Active 1 tablet Three times a with food day Cozaar ND 24539552640 50 MG Orally Active 1 tablet Once a day Ventolin HFA ND 18721562641 108 (90 Base) Active 2 puffs as MCG/ACT needed Inhalation every 6 hrs Breo Ellipta [facility] 98734146244 100-25 MCG/INH Active 1 puff Inhalation Once a day Furosemide [facility] 30340586740 80 MG Orally Active 1 tablet Twice a day Citalopram [facility] 76481385016 40 MG Orally Active 1 tablet Hydrobromide Once a day Alprazolam [facility] 82276647974 0.25 MG Orally Active 1 tablet Twice a day PRN SEVERE ANXIETY Pantoprazole [facility] 23888439501 40 MG Orally Active 1 tablet Sodium Once a day Vitamin B12 [facility] 33973859894 1000 MCG Orally Active 1 tablet Once a day Results No Known Results Summary Purpose eClinicalWorks Submission
--- OUTSIDE RECORDS SUMMARY | 2018-07-21 16:37 | XMS REPORT ---
:1960 Author Organization eClinicalWorks Care Team Providers Name Role Phone Julio Verah Provider Role Unavailable Allergies, Adverse Reactions, Alerts Substance Reaction Event Type N.K.D.A. 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 Assessment Depression with anxiety F41.8 Active Assessment Hyperlipidemia, mixed E78.2 Active Assessment Left knee pain, unspecified M25.562 Active chronicity Assessment Benign essential HTN I10 Active Assessment DNR (do not resuscitate) Z66 Active Problem Hyperlipidemia, mixed E78.2 Active Assessment Morbid obesity due to excess E66.01 Active calories Problem Gastro-esophageal reflux disease K21.9 Active without esophagitis Assessment Cellulitis of right lower L03.115 Active extremity Problem Depression with anxiety F41.8 Active Problem O2 dependent Z99.81 Active Problem 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 Problem Chronic respiratory failure, J96.10 Active unspecified whether with hypoxia or hypercapnia Problem Morbid obesity due to excess E66.01 Active calories Assessment Chronic respiratory failure, J96.10 Active unspecified whether with hypoxia or hypercapnia Assessment Chronic bronchitis with COPD J44.9 Active (chronic obstructive pulmonary disease) Problem Abnormal mammogram R92.8 Active Assessment 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 disorder without prior episode Problem Chronic diastolic heart failure I50.32 Active Problem DNR (do not resuscitate) Z66 Active Problem 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 disorder without prior episode Problem Adult BMI 50.0-59.9 kg/sq m Z68.43 Active Assessment Dog scratch W54.8XXA Active Problem Chronic bronchitis with COPD J44.9 Active (chronic obstructive pulmonary disease) Assessment O2 dependent Z99.81 Active Problem Benign essential HTN I10 Active Assessment Adult BMI 50.0-59.9 kg/sq m Z68.43 Active Assessment Chronic diastolic heart failure I50.32 Active Assessment Allergic rhinitis, seasonal J30.2 Active Problem Shingles B02.9 Active Problem Allergic rhinitis, seasonal J30.2 Active Problem Lymphedema I89.0 Active Problem Back pain M54.9 Active Medications Medication Code Code Instructions Start End Status Dosage System Date Date Pantoprazole [facility] 06810202068 40 MG Orally Active 1 tablet Sodium Once a day Citalopram [facility] 40352992295 40 MG Orally Active 1 tablet Hydrobromide Once a day Cozaar [facility] 65331329703 50 MG Orally Active 1 tablet Once a day Potassium [facility] 27629664702 20 MEQ Orally June Active 1 packet Chloride Once a day , with food 2018 2018 HydrOXYzine [facility] 92527761391 25 MG Orally Active 1 capsule Pamoate every 8 hrs as needed Vitamin B12 [facility] 62575508765 1000 MCG Active 1 tablet Orally Once a day Metolazone [facility] 01035792621 2.5 MG Orally Active 1 tablet Once a day Aspir-81 [facility] 47280277686 81 MG Orally Active 1 tablet Once a day Citalopram [facility] 88338699563 40 MG Orally Active 1 tablet Hydrobromide Once a day Spironolactone [facility] 76171667594 25MG Orally Active 1 tablet Twice a day with food Furosemide [facility] 30406320332 80 MG Orally Active 1 tablet Twice a day Alprazolam [facility] 52124448882 0.25 MG Orally Inactive 1 tablet Twice a day PRN SEVERE ANXIETY Carvedilol [facility] 83726212870 3.125 MG Active as Orally BID directed Ventolin HFA [facility] 84578768257 108 (90 Base) Active 2 puffs as MCG/ACT needed Inhalation every 6 hrs Breo Ellipta [facility] 30395720943 100-25 MCG/INH Active 1 puff Inhalation Once a day Tramadol HCl [facility] 58474120334 50 MG Orally June Active take 1 tab Once a day as , needed SEVERE 2019 PAIN HydrALAZINE HCl [facility] 56708750236 25 MG Orally Active 1 tablet Three times a with food day Results No Known Results Summary Purpose eClinicalWorks Submission
--- OUTSIDE RECORDS SUMMARY | 2018-07-21 16:38 | XMS REPORT ---
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 Problem Chronic respiratory failure, J96.10 Active unspecified whether with hypoxia or hypercapnia Problem Morbid obesity due to excess E66.01 Active calories Problem Abnormal mammogram R92.8 Active Problem Chronic diastolic heart failure I50.32 Active Problem DNR (do not resuscitate) Z66 Active Problem 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 disorder without prior episode Problem Adult BMI 50.0-59.9 kg/sq m Z68.43 Active Problem Chronic bronchitis with COPD J44.9 Active (chronic obstructive pulmonary disease) Problem Benign essential HTN I10 Active Assessment Abnormal mammogram R92.8 Active Problem Shingles B02.9 Active Problem Allergic rhinitis, seasonal J30.2 Active Problem Lymphedema I89.0 Active Problem Hyperlipidemia, mixed E78.2 Active Problem Back pain M54.9 Active Problem Gastro-esophageal reflux disease K21.9 Active without esophagitis Medications No Known Medications Results No Known Results Summary Purpose [facility] Submission
--- OUTSIDE RECORDS SUMMARY | 2018-07-21 16:38 | XMS REPORT ---
[...] disease) Problem Benign essential HTN I10 Active Problem Shingles B02.9 Active Problem Allergic rhinitis, seasonal J30.2 Active Problem Lymphedema I89.0 Active Problem Hyperlipidemia, mixed E78.2 Active Problem Back pain M54.9 Active Problem Gastro-esophageal reflux disease K21.9 Active without esophagitis Medications No Known Medications Results No Known Results Summary Purpose eClinicalWorks Submission
--- OUTSIDE RECORDS SUMMARY | 2018-07-21 16:38 | XMS REPORT ---
[...] reflux disease K21.9 Active without esophagitis Medications Medication Code Code Instructions Start End Status Dosage System Date Date Carvedilol [facility] 91881832098 3.125 MG Active as Orally BID directed HydrOXYzine ND 70305734109 25 MG Orally Active 1 capsule Pamoate every 8 hrs as needed Potassium [facility] [address]-76 20 MEQ Orally June Active 2 tablets Chloride once weekly , , with food 2018 2018 Spironolactone ND 39416239912 25MG Orally Active 1 tablet Twice a day with food Citalopram [facility] 65223564359 40 MG Orally Active 1 tablet Hydrobromide Once a day Metolazone ND 33827938939 2.5 MG Orally Active 1 tablet Once a day HydrALAZINE HCl ND 21401978614 25 MG Orally Active 1 tablet Three times a with food day Ventolin HFA [facility] 61429327471 108 (90 Base) Active 2 puffs as MCG/ACT needed Inhalation every 6 hrs Breo Ellipta [facility] 26352756574 100-25 MCG/INH Active 1 puff Inhalation Once a day Furosemide [facility] 71997211618 20 MG Orally Active 3 tablet Twice a day Tramadol HCl [facility] 25707571797 50 MG Orally June Active take 1 tab Once a day as 05, needed SEVERE 2019 PAIN Citalopram [facility] 36744908273 40 MG Orally Active 1 tablet Hydrobromide Once a day Cozaar [facility] 68466877588 50 MG Orally Active 1 tablet Once a day -81 [facility] 59971264671 81 MG Orally Active 1 tablet Once a day Vitamin B12 [facility] 28694640345 1000 MCG Active 1 tablet Orally Once a day Pantoprazole [facility] 60004478265 40 MG Orally Active 1 tablet Sodium Once a day Results No Known Results Summary Purpose eClinicalWorks Submission
--- OUTSIDE RECORDS SUMMARY | 2018-07-21 16:38 | XMS REPORT ---
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 Problem Chronic respiratory failure, J96.10 Active unspecified whether with hypoxia or hypercapnia Problem Morbid obesity due to excess E66.01 Active calories Assessment Chronic respiratory failure, J96.10 Active unspecified whether with hypoxia or hypercapnia Assessment O2 dependent Z99.81 Active Problem Abnormal mammogram R92.8 Active Assessment Chronic bronchitis with COPD J44.9 Active (chronic obstructive pulmonary disease) Problem Chronic diastolic heart failure I50.32 Active Problem DNR (do not resuscitate) Z66 Active Problem 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 disorder without prior episode Problem Adult BMI 50.0-59.9 kg/sq m Z68.43 Active Assessment Adult BMI 50.0-59.9 kg/sq m Z68.43 Active Problem Chronic bronchitis with COPD J44.9 Active (chronic obstructive pulmonary disease) Assessment Allergic rhinitis, seasonal J30.2 Active Problem Benign essential HTN I10 Active Assessment Chronic diastolic heart failure I50.32 Active Problem Shingles B02.9 Active Problem Allergic rhinitis, seasonal J30.2 Active Problem Lymphedema I89.0 Active Problem Back pain M54.9 Active Medications Medication Code Code Instructions Start End Status Dosage System Date Date Pantoprazole [facility] 98009634123 40 MG Orally Active 1 tablet Sodium Once a day Cozaar [facility] 17698933316 50 MG Orally Active 1 tablet Once a day Metolazone [facility] 79851347974 2.5 MG Orally Active 1 tablet Once a day Carvedilol [facility] 93679952944 3.125 MG Orally Active as BID directed Aspir-81 [facility] 48314365718 81 MG Orally Active 1 tablet Once a day Citalopram [facility] 20334497096 40 MG Orally Active 1 tablet Hydrobromide Once a day Breo Ellipta [facility] 62183816313 100-25 MCG/INH Active 1 puff Inhalation Once a day HydrALAZINE HCl [facility] 56057277237 25 MG Orally Active 1 tablet Three times a with food day Vitamin B12 [facility] 59878543243 1000 MCG Orally Active 1 tablet Once a day Citalopram [facility] 73235018789 40 MG Orally Active 1 tablet Hydrobromide Once a day Furosemide [facility] 67527366905 80 MG Orally Active 1 tablet Twice a day Tramadol HCl [facility] 62071551907 50 MG Orally Active take 1 tab Once a day as needed SEVERE PAIN Ventolin HFA [facility] 66847885865 108 (90 Base) Active 2 puffs as MCG/ACT needed Inhalation every 6 hrs Carvedilol [facility] 96998159349 3.125 MG Orally Active as BID directed Spironolactone [facility] 24837882993 25MG Orally Active 1 tablet Twice a day with food HydrOXYzine [facility] 40473533490 25 MG Orally Active 1 capsule Pamoate every 8 hrs as needed Results No Known Results Summary Purpose eClinicalWorks Submission
--- NOTE | 2018-07-21 17:49 | EKG ---
Test Date: 2018-07-21 Test Time: 17:06:46 Aligner Typewriter: SONIA MEASUREMENT RESULTS: Intervals: Rate: 77 TN: 216 QRSD: 96 QT: 402 QTc: 454 [place]: P: 47 TN: 216 QRS: 51 T: 8 INTERPRETIVE STATEMENTS: Sinus rhythm with 1st degree AV block Nonspecific ST and T wave abnormality Abnormal ECG Compared to ECG 03/01/2018 17:39:25 No significant changes Electronically Signed On 07-21-18 17:48:21 CDT by Jai Rincon
[2018-07-21 18:25] LABS: Absolute Lymphocytes (CBC) 1.6 K/uL (0.7-4.9); Absolute Monocytes 0.5 K/uL (0.1-1.3); Absolute Neutrophil 4.5 K/uL (1.8-8.0); Basophils % 0.3 % (0-1.3); Eosinophils % 2.2 % (0-4.4); Hematocrit 37.4 % (36.0-45.0); Lymphocytes % 23.8 % (15.3-44.8); MPV 8.4 fL (7.6-11.3); Monocytes % 7.5 % (3.3-12.3); Protime INR 1.04; RBC Red Blood Cell Count 4.45 M/uL (3.86-4.86)
[2018-07-21 18:37] LABS: ALT/SGPT 33 U/L (12-78); AST/SGOT 22 U/L (15-37); Albumin 3.5 g/dL (3.4-5.0); Alkaline Phosphatase 70 U/L (45-117); BUN Blood Urea Nitrogen 19 mg/dL (7-18); Bicarbonate 31 mmol/L (21-32); Bilirubin Direct 0.3 mg/dL (0-0.2); Glucose Level 133 mg/dL (74-106); Magnesium 2.3 mg/dL (1.8-2.4); NT PRO-BNP 126 pg/mL (<125); Potassium 3.4 mmol/L (3.5-5.1); Protein, Total 8.1 g/dL (6.4-8.2); Sodium Level 140 mmol/L (136-145); Troponin (Emerg Dept Use Only) < 0.02 ng/mL (0.0-0.045)
[2018-07-21] MEDS ORDERED: ALBUTEROL 2.5 MG/3 ML NEB SOL ONE (18:37)
[2018-07-21] MEDS ORDERED: IPRATROPIUM BROM 0.5MG/2.5ML ONE (18:37)
--- NOTE | 2018-07-21 19:18 | RAD REPORT ---
EXAM DESCRIPTION: [facility] Single View07/21/2018 5:31 pm CLINICAL HISTORY: Shortness of breath COMPARISON: September 2017 and March 2018 FINDINGS: Bilateral pulmonary opacities are without change and probably represent areas of scarring. Lungs appear clear of acute infiltrate. The heart is mildly enlarged IMPRESSION: No acute abnormalities displayed
[2018-07-21] MEDS ORDERED: FUROSEMIDE 20 MG/ 2ML VIAL ONE (19:31)
[2018-07-21] MEDS ORDERED: METHYLPREDNISOLONE 125 MG INJ ONE (19:31)
[2018-07-21] MEDS ORDERED: POTASSIUM 25 MEQ EFFERV TAB ONE (19:32)
--- NOTE | 2018-07-21 20:01 | EDPHYS ---
Physician Documentation [facility] Name: Gaye Castro Age: 57 yrs Sex: Female : 1960 Arrival Date: 07/21/2018 Time: 16:37 Bed 15 Private MD: Perez Vera ED Physician Kareem Davenport HPI: 07/21 17:00 This 57 yrs old Female presents to ER via Ambulatory with complaints of Leg cp Swelling, Breathing Difficulty. 17:00 The patient has shortness of breath at rest. Onset: The symptoms/episode began/occurred cp gradually. Duration: The symptoms are continuous. Associated signs and symptoms: Pertinent positives: increased swelling lower extremities, Pertinent negatives: chest pain, productive cough, diaphoresis, dizziness, fever, vomiting. Severity of symptoms: in the emergency department the symptoms are unchanged despite home interventions. The patient has experienced similar episodes in the past, multiple times. Historical: - Allergies: 16:40 Ibuprofen; sv - PMHx: 16:40 Anxiety; CHF; COPD; Depression; Hypertension; hypoxia; lymphedema; Pneumonia; Sleep sv Apnea; small heart and lungs; uses home o2; - PSHx: 16:40 None; sv - Immunization history:: Adult Immunizations up to date. - Social history:: Smoking status: Patient/guardian denies using tobacco. - Ebola Screening: : No symptoms or risks identified at this time. ROS: 17:05 Constitutional: Negative for body aches, chills, fever, poor PO intake. cp 17:05 Eyes: Negative for injury, pain, redness, and discharge. cp 17:05 ENT: Negative for drainage from ear(s), ear pain, sore throat, difficulty swallowing, difficulty handling secretions. 17:05 Cardiovascular: Positive for edema, Negative for chest pain, palpitations. 17:05 Respiratory: Positive for cough, with no reported sputum, shortness of breath. 17:05 Abdomen/GI: Negative for abdominal pain, nausea, vomiting, and diarrhea, black/tarry stool, rectal bleeding. 17:05 Back: Negative for pain at rest, pain with movement, radiated pain. 17:05 Neuro: Negative for altered mental status, headache, syncope, weakness. 17:05 All other systems are negative. Exam: 17:15 ECG was reviewed by the Attending Physician. cp 17:15 Constitutional: The patient appears in no acute distress, alert, awake, cp non-diaphoretic, non-toxic, well developed, well nourished, morbid obesity 17:15 Head/Face: Normocephalic, atraumatic. cp 17:15 Eyes: Periorbital structures: appear normal, Pupils: equal, round, and reactive to light and accomodation, Extraocular movements: intact throughout, Conjunctiva: normal, no exudate, no injection, Sclera: no appreciated abnormality, Lids and lashes: appear normal, bilaterally. 17:15 ENT: External ear(s): are unremarkable, Ear canal(s): are normal, clear, TM's: are normal, no evidence of bulging, no erythema, Nose: is normal, Mouth: Lips: moist, Oral mucosa: pink and intact, moist, Posterior pharynx: Airway: no evidence of obstruction, patent, Tonsils: are normal in appearance, swelling, is not appreciated, erythema, is not appreciated, exudate, is not appreciated. 17:15 Neck: ROM/movement: is normal, is supple, without pain, no range of motions limitations, no nuchal rigidity. 17:15 Chest/axilla: Inspection: normal, Palpation: is normal, no crepitus, no tenderness. 17:15 Cardiovascular: Rate: normal, Rhythm: regular, Edema: ankle edema, that is marked, JVD: is not appreciated. 17:15 Respiratory: the patient does not display signs of respiratory distress, Respirations: labored breathing, that is mild, tachypnea, is not appreciated, Breath sounds: decreased breath sounds, that are mild, throughout, stridor, is not appreciated. 17:15 Abdomen/GI: Inspection: obese Palpation: abdomen is soft and non-tender, in all quadrants. 17:15 Skin: consistent with candidiasis, on the right lower pannis. 17:15 Neuro: Orientation: to person, place \T\ time. Mentation: is normal, Cerebellar function: is grossly normal, Motor: moves all fours, strength is normal, Sensation: is normal. Vital Signs: 16:40 BP 117 / 71; Pulse 89; Resp 22; Temp 98.6; Pulse Ox 95% on 4 lpm NC; Weight 136.08 kg; sv Height 5 ft. 0 in. (152.40 cm); 17:58 BP 117 / 64; Pulse 81; Resp 19; Pulse Ox 95% on 4 lpm NC; aj1 18:58 BP 106 / 66; Pulse 73; Resp 18; Pulse Ox 100% on Nebulizer Mask; aj1 19:30 BP 117 / 74; Pulse 83; Resp 18; Pulse Ox 96% on 4 lpm NC; lp1 20:30 BP 126 / 66; Pulse 69; Resp 17; Pulse Ox 96% on 4 lpm NC; lp1 16:40 Body Mass Index 58.59 (136.08 kg, 152.40 cm) sv MDM: 16:47 Patient medically screened. cp 17:00 Differential diagnosis: asthma, Bronchitis CHF exacerbation, Chronic Obstructive cp Pulmonary Disease Myocardial Infarction pneumonia, Pneumothorax pulmonary edema, Pulmonary Embolism. 20:00 Data reviewed: vital signs, nurses notes, lab test result(s), EKG, radiologic studies, cp plain films. 20:00 Test interpretation: by ED physician or midlevel provider: ECG, plain radiologic cp studies. Counseling: I had a detailed discussion with the patient and/or guardian regarding: the historical points, exam findings, and any diagnostic results supporting the discharge/admit diagnosis, lab results, radiology results, to return to the emergency department if symptoms worsen or persist or if there are any questions or concerns that arise at home. Response to treatment: the patient's symptoms have markedly improved after treatment, and as a result, I will discharge patient. ED course: VSS. Patient has home oxygen and symptoms improved after breathing treatment and meds. Will discharge to home for continued monitoring. 07/21 16:56 Order name: Basic Metabolic Panel; Complete Time: 18:38 cp 07/21 18:38 Interpretation: Normal except: K 3.4; GLUC 133; BUN 19; GFR 71. cp 07/21 16:56 Order name: CBC with Diff; Complete Time: 18:38 cp 07/21 18:38 Interpretation: Normal except: MCV 84.0; RDW 16.0. cp 07/21 16:56 Order name: LFT's; Complete Time: 18:39 cp 04 18:39 Interpretation: Normal except: BILID 0.3; GLOB 4.6; A/G 0.8. cp 07/21 16:56 Order name: Magnesium; Complete Time: 18:39 cp 07/21 16:56 Order name: NT PRO-BNP; Complete Time: 18:39 cp 07/21 18:39 Interpretation: Abnormal: NT PRO-BNP 126. cp 07/21 16:56 Order name: PT-INR; Complete Time: 18:38 cp 07/21 16:56 Order name: Troponin (emerg Dept Use Only); Complete Time: 18:39 cp 07/21 16:56 Order name: EKG; Complete Time: 16:57 cp 07/21 16:56 Order name: Cardiac monitoring; Complete Time: 17:53 cp 07/21 16:56 Order name: XRAY Chest (1 view); Complete Time: 19:20 cp 07/21 16:56 Order name: EKG - Nurse/Tech; Complete Time: 17:53 cp 07/21 16:56 Order name: IV Saline Lock; Complete Time: 17:54 cp 07/21 16:56 Order name: Labs collected and sent; Complete Time: 17:54 cp 07/21 16:56 Order name: O2 Per Protocol; Complete Time: 17:54 cp 07/21 16:56 Order name: O2 Sat Monitoring; Complete Time: 17:54 cp 07/21 17:59 Order name: Wound Care: dressing right groin/pannis area; Complete Time: 20:35 cp EC:15 Rate is 77 beats/min. Rhythm is regular. NV interval is prolonged at 216 msec. QRS cp interval is normal. QT interval is normal. Interpreted by me. Reviewed by me. Administered Medications: 18:40 Drug: Albuterol - atroVENT (3:1) (2.5 mg - 0.5 mg) 3 ml Route: Nebulizer; aj1 19:45 Follow up: Response: Marked relief of symptoms lp1 19:45 Drug: Potassium Effervescent Tablet 25 mEq Route: PO; lp1 20:35 Follow up: Response: No adverse reaction lp1 19:45 Drug: Lasix 20 mg Route: IVP; Site: right antecubital; lp1 20:36 Follow up: Response: No adverse reaction; Patient voided x1 lp1 19:45 Drug: SOLU-Medrol 125 mg Route: IVP; Site: right antecubital; lp1 20:36 Follow up: Response: No adverse reaction lp1 Disposition: 07/21/18 20:01 Discharged to Home. Impression: Chronic obstructive pulmonary disease with (acute) exacerbation, Lymphedema, not elsewhere classified. - Condition is Stable. - Discharge Instructions: Chronic Obstructive Pulmonary Disease Exacerbation, Lymphedema. - Prescriptions for Albuterol Sulfate 2.5 mg /3 mL (0.083 %) Inhalation Solution for Nebulization - inhale 1 unit by NEBULIZATION route every 8 hours As needed; 1 box. Prednisone 20 mg Oral Tablet - take 2 tablet by ORAL route once daily for 5 days; 10 tablet. - Medication Reconciliation Form, Thank You Letter, Antibiotic Education, Prescription Opioid Use form. - Follow up: Perez Vera DO; When: 2 - 3 days; Reason: Recheck today's complaints. - Problem is new. - Symptoms have improved. Signatures: Dispatcher [employer] EDMS Ellen Cronin RN RN aj1 Farnaz Solano RN RN Marcy Zambrano RN RN lp1 Mariano Kearney PA PA cp Corrections: (The following items were deleted from the chart) 21:05 20:01 07/21/2018 20:01 Discharged to Home. Impression: Chronic obstructive pulmonary lp1 disease with (acute) exacerbation; Lymphedema, not elsewhere classified. Condition is Stable. Forms are Medication Reconciliation Form, Thank You Letter, Antibiotic Education, Prescription Opioid Use. Follow up: Perez Vera; When: 2 - 3 days; Reason: Recheck today's complaints. Problem is new. Symptoms have improved. cp
--- NOTE | 2018-07-21 20:01 | ER ---
Nurse's Notes [facility] Name: Gaye Castro Age: 57 yrs Sex: Female : 1960 Arrival Date: 07/21/2018 Time: 16:37 Bed 15 Private MD: Perez Vera Diagnosis: Chronic obstructive pulmonary disease with (acute) exacerbation;Lymphedema, not elsewhere classified Presentation: 07/21 16:39 Presenting complaint: Patient states: dyspnea, BLE swelling, "I think it might be my sv allergies because I can't breathe through my nose and I'm stopped up.". Transition of care: patient was not received from another setting of care. Onset of symptoms was July 19, 2018. Care prior to arrival: None. 16:39 Method Of Arrival: Ambulatory sv 16:39 Acuity: DEBBY 3 sv 20:39 Risk Assessment: Do you want to hurt yourself or someone else? Patient reports no lp1 desire to harm self or others. Initial Sepsis Screen: Does the patient meet any 2 criteria? No. Patient's initial sepsis screen is negative. Does the patient have a suspected source of infection? No. Patient's initial sepsis screen is negative. Historical: - Allergies: 16:40 Ibuprofen; sv - PMHx: 16:40 Anxiety; CHF; COPD; Depression; Hypertension; hypoxia; lymphedema; Pneumonia; Sleep sv Apnea; small heart and lungs; uses home o2; - PSHx: 16:40 None; sv - Immunization history:: Adult Immunizations up to date. - Social history:: Smoking status: Patient/guardian denies using tobacco. - Ebola Screening: : No symptoms or risks identified at this time. Screenin:57 Abuse screen: Denies threats or abuse. Denies injuries from another. Nutritional aj1 screening: No deficits noted. Tuberculosis screening: No symptoms or risk factors identified. 20:38 Fall Risk None identified. lp1 Assessment: 17:55 General: Appears in no apparent distress. uncomfortable, Behavior is calm, cooperative, aj1 appropriate for age. Pain: Complains of pain in left leg Pain does not radiate. Quality of pain is described as burning. Neuro: Level of Consciousness is awake, alert, obeys commands, Oriented to person, place, time, situation, Speech is normal, Facial symmetry appears normal. Cardiovascular: Reports shortness of breath, Heart tones S1 S2 present Patient's skin is warm and dry. Patient has lymphedema to bilateral lower legs. Rhythm is sinus rhythm. Respiratory: Reports shortness of breath Airway is patent Respiratory effort is even, unlabored, Respiratory pattern is regular, symmetrical, Breath sounds are diminished bilaterally. GI: No signs and/or symptoms were reported involving the gastrointestinal system. : No signs and/or symptoms were reported regarding the genitourinary system. EENT: No signs and/or symptoms were reported regarding the EENT system. Derm: No signs and/or symptoms reported regarding the dermatologic system. Skin is pink, warm \\T\\ dry. normal. Musculoskeletal: No signs and/or symptoms reported regarding the musculoskeletal system. Circulation, motion, and sensation intact. 18:58 Reassessment: Patient appears in no apparent distress at this time. No changes from aj1 previously documented assessment. Patient and/or family updated on plan of care and expected duration. Pain level reassessed. Patient is alert, oriented x 3, equal unlabored respirations, skin warm/dry/pink. 19:15 Reassessment: Patient appears in no apparent distress at this time. Patient states lp1 feeling better. Respiratory: Respiratory effort is even, Respiratory pattern is regular, Breath sounds are diminished bilaterally. Derm: Wound noted Wound is redness noted to skin fold to right thigh. 20:20 Reassessment: Patient waiting for ride to arrive for discharge. lp1 Vital Signs: 16:40 BP 117 / 71; Pulse 89; Resp 22; Temp 98.6; Pulse Ox 95% on 4 lpm NC; Weight 136.08 kg; sv Height 5 ft. 0 in. (152.40 cm); 17:58 BP 117 / 64; Pulse 81; Resp 19; Pulse Ox 95% on 4 lpm NC; aj1 18:58 BP 106 / 66; Pulse 73; Resp 18; Pulse Ox 100% on Nebulizer Mask; aj1 19:30 BP 117 / 74; Pulse 83; Resp 18; Pulse Ox 96% on 4 lpm NC; lp1 20:30 BP 126 / 66; Pulse 69; Resp 17; Pulse Ox 96% on 4 lpm NC; lp1 16:40 Body Mass Index 58.59 (136.08 kg, 152.40 cm) sv ED Course: 16:37 Patient arrived in ED. mr 16:37 Perez Vera DO is Private Physician. mr 16:39 Triage completed. sv 16:40 Arm band placed on. sv 16:41 Mariano Kearney PA is PHCP. cp 16:41 Kareem Davenport MD is Attending Physician. cp 17:16 Ellen Cronin, RN is Primary Nurse. aj1 17:20 EKG done, by surfacing technician. reviewed by Mariano CARTER. sm3 17:31 XRAY Chest (1 view) In Process Unspecified. EDMS 17:55 Patient has correct armband on for positive identification. Bed in low position. Call aj1 light in reach. Side rails up X 1. scrap kettle tender on. Pulse ox on. NIBP on. 17:55 No provider procedures requiring assistance completed. aj1 19:59 Perez Vera DO is Referral Physician. cp 20:39 IV discontinued, No redness/swelling at site. Pressure dressing applied. lp1 Administered Medications: 18:40 Drug: Albuterol - atroVENT (3:1) (2.5 mg - 0.5 mg) 3 ml Route: Nebulizer; aj1 19:45 Follow up: Response: Marked relief of symptoms lp1 19:45 Drug: Potassium Effervescent Tablet 25 mEq Route: PO; lp1 20:35 Follow up: Response: No adverse reaction lp1 19:45 Drug: Lasix 20 mg Route: IVP; Site: right antecubital; lp1 20:36 Follow up: Response: No adverse reaction; Patient voided x1 lp1 19:45 Drug: SOLU-Medrol 125 mg Route: IVP; Site: right antecubital; lp1 20:36 Follow up: Response: No adverse reaction lp1 Intake: Outcome: 20:01 Discharge ordered by . cp 20:39 Discharged to home ambulatory. lp1 20:39 Condition: good 20:39 Discharge instructions given to patient, Instructed on discharge instructions, follow up and referral plans. medication usage, Demonstrated understanding of instructions, follow-up care, medications, Prescriptions given X 2. 21:05 Patient left the ED. lp1 Signatures: Dispatcher [employer] EDNV Ellen Cronin RN RN aj1 Farnaz Solano RN RN Isaías Deborah mr Marcy Browning RN RN lp1 Mariano Kearney PA PA cp Montes, Shakira 3
[2018-07-21 21:31] VITALS: TEMP 98.6
[2018-07-21 21:34] VITALS: O2SAT 96
[2018-07-21 21:36] VITALS: BP 126/66
== END 2018-07-21 21:05 | disposition home or self-care (01) ==
LOC: ER 16:34
DX: J44.1 Chronic obstructive pulmonary disease with (acute) exacerbation (principal); I89.0 Lymphedema, not elsewhere classified; I44.0 Atrioventricular block, first degree; R94.31 Abnormal electrocardiogram [ECG] [EKG]; I11.0 Hypertensive heart disease with heart failure; I50.9 Heart failure, unspecified; G47.30 Sleep apnea, unspecified; Z99.81 Dependence on supplemental oxygen
CPT/HCPCS: 93005; 85025; 80048; 36415; 83735; 85610; 80076; 84484; 83880; 71045; 94640; 96375; 96374; 99285; J1940; J2930

== ENCOUNTER 2018-12-09 12:46 | Emergency (ER) | payer OTHER ==
--- OUTSIDE RECORDS SUMMARY | 2018-12-09 12:49 | XMS REPORT | Clinical Summary ---
:1960 Author Organization [facility] Address [address] [place] [address] Care Team Providers Name Role Phone Asked, No Pcp Primary Care Provider Unavailable Allergies Active Allergy Reactions Severity Noted Date Comments Ibuprofen Other (See Comments) 07/26/2018 Cramping Medications Medication Sig Dispensed Refills Start End Date Status Date traMADol (ULTRAM) Take 50 mg by 0 Active 50 mg tablet mouth daily as needed for severe pain. furosemide (LASIX) Take 80 mg by 0 Active 80 mg tablet mouth 2 (two) times a day. ALPRAZolam (XANAX) Take 0.25 mg by 0 Active 0.25 MG tablet mouth nightly as needed for anxiety (severe anxiety). potassium chloride Take 40 mEq by 0 Active (K-DUR,KLOR-CON) mouth every 10 MEQ CR tablet morning. pantoprazole Take 40 mg by 0 Active (PROTONIX) 40 MG mouth daily. EC tablet cyanocobalamin Take 1,000 mcg 0 Active 1000 MCG tablet by mouth daily. ascorbic acid, Take 500 mg by 0 Active vitamin C, mouth daily. (VITAMIN C) 500 MG tablet acetaminophen Take 500 mg by 0 Active (TYLENOL) 500 MG mouth every 6 tablet (six) hours as needed for mild pain. hydrOXYzine Take 25 mg by 0 Active (ATARAX) 25 MG mouth every 8 tablet (eight) hours as needed for itching. carvedilol (COREG) Take 3.125 mg by 0 Active 3.125 MG tablet mouth 2 (two) times a day with meals. spironolactone Take 25 mg by 0 Active (ALDACTONE) 25 MG mouth 2 (two) tablet times a day. citalopram Take 40 mg by 0 Active (CeleXA) 40 MG mouth daily. tablet metOLazone Take 2.5 mg by 0 Active (ZAROXOLYN) 2.5 MG mouth once a tablet week. Thursday umeclidinium Inhale 62.5 mcg 0 Active (INCRUSE ELLIPTA) daily. 62.5 mcg/actuation blister with device fluticasone Inhale 1 0 Active furoate-vilanterol inhalations (BREO ELLIPTA) daily. 100-25 mcg/dose blister with device powder for inhalation albuterol Take by 0 Active (ACCUNEB) 2.5 mg nebulization /3 mL (0.083 %) every 8 (eight) nebulizer solution hours. fluticasone 2 sprays by Each 0 Active propionate Nare route as (FLONASE) 50 needed for mcg/actuation rhinitis. nasal spray atenolol Take 50 mg by 0 07/27/19 Discontinued (TENORMIN) 50 MG mouth daily. 19 (Med List tablet Cleanup) hydrALAZINE Take 25 mg by 0 08/03/19 Discontinued (APRESOLINE) 25 MG mouth 3 (three) 19 (Stop Taking at tablet times a day. Discharge) citalopram Take 20 mg by 0 07/27/19 Discontinued (CeleXA) 20 MG mouth daily. 19 (Med List tablet Cleanup) fluticasone-salmet Inhale 1 puff 2 0 07/27/19 Discontinued antoinette (ADVAIR) (two) times a 19 (Med List 100-50 mcg/dose day. Cleanup) DISKUS albuterol Take 2.5 mg by 0 08/03/19 Discontinued (PROVENTIL) 2.5 mg nebulization 19 (Stop Taking at /3 mL (0.083 %) every 8 (eight) Discharge) nebulizer solution hours. losartan (COZAAR) Take 50 mg by 0 08/03/19 Discontinued 50 MG tablet mouth daily. 19 (Stop Taking at Discharge) predniSONE Take 20 mg by 0 08/03/19 Discontinued (DELTASONE) 10 mg mouth 2 (two) 9 19 (Stop Taking at tablet times a day. For Discharge) 5 days,starting on 07/23/[address] 1 capsule 0 08/03/19 Discontinued (SPIRIVA) 18 mcg into inhaler and 19 (Med List per inhalation inhale once Cleanup) capsule daily. sildenafil, Take 1 tablet 90 tablet 0 09/02/19 antihypertensive, (20 mg total) by 9 19 (REVATIO) 20 mg mouth every 8 tablet (eight) hours for 30 days. Active Problems Problem Noted Date COPD exacerbation 07/26/2018 CHF (congestive heart failure) 09/22/2016 Chronic obstructive pulmonary disease with acute exacerbation 09/22/2016 Lymphedema 09/22/2016 Essential hypertension 09/22/2016 Encounters Date Type Specialty Care Team Description 08/06/2018 Telephone Cardiology Dwight, Duyen Shelby RN 07/29/2018 Surgery Procedural Bandeali, Cv right heart cath Cardiology Cece [[id number] (CPT)] MD Leighann 07/26/2018 - Hospital Encounter General Internal Re[place], [place] COPD exacerbation (HCC) (Primary Dx); 08/02/2018 Medicine Ren, Chronic congestive heart failure, unspecified heart failure type (HCC); Jadon Bridges MD Chronic acquired lymphedema; Zofia Mckinney, Acute on chronic diastolic congestive heart failure (HCC) ; Lymphedema; Essential hypertension after 12/08/2017 Social History Tobacco Use Types Packs/Day Years Used Date Never Smoker Smokeless Tobacco: Never Used Alcohol Use Drinks/Week oz/Week Comments No Alcohol Habits Answer Date Recorded How often do you have a drink containing alcohol? Never 07/26/2018 How many drinks containing alcohol do you have on a typical Not asked day when you are drinking? How often do you have six or more drinks on one occasion? Not asked Sex Assigned at Date Recorded Not on file Job Start Date Occupation Industry Not on file Not on file Not on file Travel History Travel Start Travel End No recent travel history available. Last Filed Vital Signs Vital Sign Reading Time Taken Comments Blood Pressure 124/77 08/02/2018 12:00 PM CDT Pulse 110 08/02/2018 2:39 PM CDT Temperature 36.1 C (97 F) 08/02/2018 12:00 PM CDT Respiratory Rate 22 08/02/2018 2:39 PM CDT Oxygen Saturation 95% 08/02/2018 2:30 PM CDT Inhaled Oxygen Concentration - - Weight 127 kg (279 lb 12.8 oz) 07/31/2018 4:33 AM CDT Height 152.4 cm (5') 07/28/2018 9:00 AM CDT Body Mass Index 54.64 07/28/2018 9:00 AM CDT Plan of Treatment Health Maintenance Due Date Last Done Comments CERVICAL CANCER SCREENING 12/22/1983 BREAST CANCER SCREENING 2012 COLONOSCOPY SCREENING 2012 SHINGLES VACCINES (#1) 2012 INFLUENZA VACCINE 11/04/2018 Procedures Procedure Name Priority Date/Time Associated Comments Diagnosis CBC HEMOGRAM Routine 08/01/2018 9:56 Results for this AM CDT procedure are in the results section. ESTIMATED GFR Routine 08/01/2018 4:00 Results for this AM CDT procedure are in the results section. BASIC METABOLIC PANEL Routine 08/01/2018 4:00 Results for this AM CDT procedure are in the results section. CV RIGHT HEART CATH Routine 07/29/2018 6:18 Results for this PM CDT procedure are in the results section. ESTIMATED GFR Routine 07/29/2018 5:25 Results for this AM CDT procedure are in the results section. BASIC METABOLIC PANEL Routine 07/29/2018 5:25 Results for this AM CDT procedure are in the results section. ECHOCARDIOGRAM 2D Routine 07/27/2018 8:30 Results for this COMPLETE W MMODE AM CDT procedure are in SPECTRAL COLOR DOPPLER the results (30288) section. BLOOD CULTURE, AEROBIC Routine 07/27/2018 12:45 Results for this & ANAEROBIC AM CDT procedure are in the results section. LACTIC ACID LEVEL, Timed 07/26/2018 8:12 Results for this SEPSIS - NOW AND REPEAT PM CDT procedure are in 2X EVERY 3 HOURS the results section. URINALYSIS SCREEN AND STAT 07/26/2018 3:30 Results for this MICROSCOPY, WITH REFLEX PM CDT procedure are in TO CULTURE the results section. URINE CULTURE STAT 07/26/2018 3:30 Results for this PM CDT procedure are in the results section. LACTIC ACID LEVEL Timed 07/26/2018 3:00 Results for this PM CDT procedure are in the results section. TROPONIN Timed 07/26/2018 3:00 Results for this PM CDT procedure are in the results section. PARTIAL THROMBOPLASTIN STAT 07/26/2018 3:00 Results for this TIME (PTT) PM CDT procedure are in the results section. PROTHROMBIN TIME WITH STAT 07/26/2018 3:00 Results for this INR PM CDT procedure are in the results section. US DUPLEX VENOUS LOWER STAT 07/26/2018 1:40 Results for this EXTREMITY BILATERAL PM CDT procedure are in the results section. CT ANGIOGRAM PE CHEST STAT 07/26/2018 11:13 Results for this AM CDT procedure are in the results section. ECG ED PRELIMINARY Routine 07/26/2018 10:27 Results for this INTERPRETATION AM CDT procedure are in the results section. RESPIRATORY PATHOGEN Routine 07/26/2018 10:25 Results for this PANEL AM CDT procedure are in the results section. VENOUS BLOOD GAS STAT 07/26/2018 10:23 Results for this AM CDT procedure are in the results section. URINALYSIS SCREEN AND STAT 07/26/2018 9:53 Results for this MICROSCOPY, WITH REFLEX AM CDT procedure are in TO CULTURE the results section. URINE CULTURE STAT 07/26/2018 9:50 Results for this AM CDT procedure are in the results section. ECG 12-LEAD STAT 07/26/2018 9:49 Results for this AM CDT procedure are in the results section. ESTIMATED GFR STAT 07/26/2018 9:45 Results for this AM CDT procedure are in the results section. B NATRIURETIC PEPTIDE STAT 07/26/2018 9:45 Results for this AM CDT procedure are in the results section. TROPONIN STAT 07/26/2018 9:45 Results for this AM CDT procedure are in the results section. COMPREHENSIVE METABOLIC STAT 07/26/2018 9:45 Results for this PANEL AM CDT procedure are in the results section. HC COMPLETE BLD COUNT STAT 07/26/2018 9:45 Results for this W/AUTO DIFF AM CDT procedure are in the results section. after 12/08/2017 Results CBC hemogram (08/01/2018 9:56 AM CDT) WBC 9.51 4.50 - 11.00 k/uL [facility] RBC 4.50 4.20 - 5.50 m/uL [facility] HGB 12.3 12.0 - 16.0 g/dL [facility] HCT 40.0 37.0 - 47.0 % [facility] MCV 88.9 82.0 - 100.[address] [facility] MCH 27.3 27.0 - 34.[address] [facility] MCHC 30.8 (L) 31.0 - 37.0 g/dL [facility] RDW - SD 51.5 37.0 - 55.[address] [facility] MPV 10.5 8.8 - 13.[address] [facility] Platelet count 237 150 - 400 k/uL [facility] Nucleated RBC 0.00 /[address] [facility] Specimen Blood Performing Organization Address City/[facility] Cent[facility]ode Phone Number [facility] DEPARTMENT OF PATHOLOGY AND [address] [place] [phone] Estimated GFR (08/01/2018 4:00 AM CDT)Only the most recent of3 resultswithin the time period is included. [facility] Estimated GFR >=90 mL/min/1.73 [facility] Comment: [address] CatergoryUnitsInterpretation G1 >=90 Normal or high G2 60-89Mildly decreased K7e02-26Lcrsen to moderately decreased Y4e21-20Jikrcxldly to severely decreased G4 15-29Severely decreased G5 <15Kidney failure The eGFR was calculated using the Chronic Kidney Disease Epidemiology Collaboration (CKD-EPI) equation. Interpretation is based on recommendations of the National Kidney Foundation-Kidney Disease Outcomes Quality Initiative (NKF-KDOQI) published in 2014. Specimen Plasma specimen Performing Organization Address [facility] Centercode Phone Number [facility] DEPARTMENT OF PATHOLOGY AND [address] [place] [phone] Basic metabolic panel (08/01/2018 4:00 AM CDT)Only the most recent of2 resultswithin the time period is included. [facility] Sodium 134 (L) 135 - 148 mEq/L [facility] Potassium 4.5 3.5 - 5.0 mEq/L [facility] Chloride 96 (L) 98 - 112 mEq/L [facility] CO2 26 24 - 31 mEq/L [facility] Anion gap 12@ANIO 7 - 15 mEq/L [facility] BUN 23 (H) 6 - 20 mg/dL [facility] Creatinine 0.70 0.50 - 0.90 mg/dL [facility] Glucose 112 (H) 65 - 99 mg/dL [facility] Calcium 8.7 8.3 - 10.2 mg/dL [facility] Specimen Plasma specimen Performing Organization Address City/[facility]/Zipcode Phone Number [facility] DEPARTMENT OF PATHOLOGY AND [address] [place] [address] [facility] [address] [place] [address] Cv phlebotomist medical lab assistant procedure (07/29/2018 6:18 PM CDT) Specimen Narrative Performed At INTERVENTIONAL CARDIOLOGY PROCEDURE NOTE HM SYNGO [ Cece Escobar MD | Elisabet Seaman MD | Leon Echols MD ] PATIENT:Gaye Castro, MR#:[id number], :1960 DATE OF SERVICE:07/29/18 Pre-Procedure Diagnosis: Pulmonary HTN Post-Procedure Diagnosis:severe Pulmonary HTN reversible to oxygen dilator challenge Procedure Performed: - Right heart catheterization (RHC) - Ultrasound access:leftradialartery andrightinternal jugular vein - Monitoring under moderate minutes Javascript Front End Developer:MD Luz Anesthesia/Sedation:Moderate Sedation (IV Versed and IV Fentanyl) Specimens: None Estimated Blood Loss:5 mL Iodinated Contrast:none mL Blood Administered:None Grafts or Implants:None Complications:None Hemodynamic / oximetric Findings: Right atrium:16/13 mean 14mm Hg (mean) Right ventricle:85/9EDP 12mm Hg Pulmonary artery:85/22cdck32gs Hg Wedge:15mm Hg Pulmonary artery saturation:67.4% Systemic artery saturation:98% Cardiac output / index (Estimated Ladarius):4.18/1.93 Pulmonary vascular resistance:8.6Wood's Units (W.U.) After 100% O2 challengefor 5mins PA 58/25 mean 42 PCWP 12 Pa sat 76 Ao sat 98 [place] CO 5.36/ Index 2.47 PVR 5.6 Plan / Recommendations: - Severe pulmonary HTN responsive to vasodilator challenge. - will likely need therapy for Pulm HTN Will discuss with Dr. Waterman Thank you for the opportunity franky of assistance. Please call if questions arise. Cece Escobar MD[facility] Clinical and Interventional Cardiology Office: ; Answering Service: Pager: [phone] Performing Organization Address City/State/Zipcode Phone Number [facility] [address] [place] [address] Echocardiogram complete w contrast and 3D if needed (07/27/2018 8:30 AM CDT) Specimen Narrative Performed At [facility] Echocardiography Report [address] [facility], [place] [address], [place] [address] Pat.Name:GAYE CASTRO.ID:[id number] .Date: 07/27/2018 Refer.MD:ZOFIA MCKINNEY MD Exam Time: 7:41:00 AMStudy Type:Routine Echo Height:60inWeight: 273lb BSA: 2.13 m2 DOBAge:1960,57Y Sex: FEMALEBP:118/58 HR:67 bpmSonogrphr: Heather Dutta ROMEO Pat. Stat.:Inpatient Room:[facility] Study Status:Final Echo Event ID:[id number] Order ID:[id number] Reason for Study:Hypertension - Initial eval of suspected hypertensive heart disease; Hypoxemia or resp failure, unknown cause History / Clinical:COPD, CHF Procedures:2D Echo, Colorflow Doppler, Intravenous Definity Contrast Race:C SUMMARY: LV EF is normal. Unable to assess RV systolic function. RV size is enlarged. Unable to assess PA systolic pressure despite use of contrast. FINDINGS: LV: LV size is normal. There is mild concentric LV hypertrophy. LVEF is normal. Overall wall motion is normal. Estimated EFis 55-59%. RV: RV size is enlarged. Unable to assess RV systolic function. LA: LA volume is difficult to assess. RA: RA volume is difficult to assess. AO: Aortic root diameter is normal. STEPHANIE: No pericardial effusion. AV: No structural AV abnormalities noted. MV: No structural MV abnormalities noted. PV: Pulmonic valve not well seen. TV: No structural TV abnormalities noted. Boyle: Normal diastolic function. Other:Unable to assess PA systolic pressure despite use of contrast. MEASUREMENTS: 2D Parasternal Long [place]vier LVOT 2.2 cmLA Ds3.8 cm LVIDd4.9 cmIndex2.3 cm/m Ao Rtd 3.2 cm Index1.5 cm/m LVIDs3.5 cmLV Zwpo958.2 g(87-129) LV%fs 28.1 % LVM Rvfiq238.9 g/m2 IVSd 1.2 cmRWT0.5 LVPWd1.3 cm DOPPLER LVOT Stroke Vol LVOT 2.2 cmLVOT CO8.5 l/min LVOT TVI30.6 cmLVOT CI4 l/m/m2 LVOT Tm358 xnjvCD22 bpm LVOT SV116.2 ml Signed 07/27/2018 04:36 PM Malathi Hutchison M.D. Procedure Note Interface, Radiology Results In - 07/27/2018 4:36 PM CDT Echocardiography Report [address]Name: GAYE CASTRO.ID: [id number] .Date: 07/27/2018 Refer.MD: ZOFIA MCKINNEY MD Exam Time: 7:41:00 AM Study Type:Routine Echo Height: 60in Weight: 273lb BSA: 2.13 m2 Age: 11 1960,57Y Sex: FEMALE BP: 118/58 HR: 67 bpm Sonogrphr: Heather Dutta RDCS Pat. Stat.:Inpatient Room: [facility] Study Status:Final Echo Event ID:[id number] Order ID: [id number] Reason for Study:Hypertension - Initial eval of suspected hypertensive heart disease; Hypoxemia or resp failure, unknown cause History / Clinical:COPD, CHF Procedures:2D Echo, Colorflow Doppler, Intravenous Definity Contrast Race: C SUMMARY: LV EF is normal. Unable to assess RV systolic function. RV size is enlarged. Unable to assess PA systolic pressure despite use of contrast. FINDINGS: LV: LV size is normal. There is mild concentric LV hypertrophy. LV EF is normal. Overall wall motion is normal. Estimated EF is 55-59%. RV: RV size is enlarged. Unable to assess RV systolic function. LA: LA volume is difficult to assess. RA: RA volume is difficult to assess. AO: Aortic root diameter is normal. STEPHANIE: No pericardial effusion. AV: No structural AV abnormalities noted. MV: No structural MV abnormalities noted. PV: Pulmonic valve not well seen. TV: No structural TV abnormalities noted. Boyle: Normal diastolic function. Other: Unable to assess PA systolic pressure despite use of contrast. MEASUREMENTS: 2D Parasternal Long [place] LVOT 2.2 cm LA Ds 3.8 cm LVIDd 4.9 cm Index 2.3 cm/m Ao Rtd 3.2 cm Index 1.5 cm/m LVIDs 3.5 cm LV Mass 236.2 g (87-129) LV%fs 28.1 % LVM Index 110.9 g/m2 IVSd 1.2 cm RWT 0.5 LVPWd 1.3 cm DOPPLER LVOT Stroke Vol LVOT 2.2 cm LVOT CO 8.5 l/min LVOT TVI 30.6 cm LVOT CI 4 l/m/m2 LVOT Tm 358 msec HR 73 bpm LVOT SV 116.2 ml Signed 07/27/2018 04:36 PM Malathi Hutchison M.D. Performing Organization Address [facility]/Zipcode Phone Number [facility] [address] [place] [address] Blood culture, aerobic & anaerobic (07/27/2018 12:45 AM CDT) Blood culture No growth after 5 days of incubation. [facility] isolate Comment: HOSPITAL Specimen Information Specimen Source: Blood Specimen Site: Unspecified Specimen Blood Performing Organization Address [facility] Centercode Phone Number [facility] DEPARTMENT OF PATHOLOGY AND [address] [place] [phone] [address] Lactic acid level, SEPSIS - Now and repeat 2x every 3 hours (07/26/2018 8:12 PM CDT) Lactic acid 2.9 (H) 0.5 - 2.2 mmol/L [facility] Specimen Blood Performing Organization Address [facility] Centercola Phone Number [facility] DEPARTMENT OF PATHOLOGY AND [address] [place] [phone] [place] [phone] Urinalysis screen and microscopy, with reflex to culture (07/26/2018 3:30 PM CDT)Only the most recent of2 resultswithin the time period is included. Specimen site Clean catch [facility] Color, UA Colorless [facility] Appearance, UA Clear [facility] Specific gravity, UA 1.014 1.001 - 1.035 [facility] pH, UA 7.0 5.0 - 8.5 [facility] Protein, UA Negative Negative [facility] Glucose, UA Negative Negative [facility] Ketones, UA Negative Negative [facility] Bilirubin, UA Negative Negative [facility] Blood, UA Negative Negative [facility] Nitrite, UA Negative Negative [facility] Urobilinogen, UA <2.[address] [facility] Leukocyte esterase, Negative Negative [facility] Epithelial cells, UA <1 /HPF [facility] WBC, UA <1 0 - 4 /HPF [facility] RBC, UA None seen 0 - 5 /HPF [facility] Bacteria, UA Few None seen [facility] Yeast, UA None seen [facility] Yeast with None seen [facility] pseudohyphae, UA HOSPITAL Specimen Urine Performing Organization Address City/State/Zipcode Phone Number [facility] DEPARTMENT OF PATHOLOGY AND [address] [place] [phone] [place] [phone] Urine culture (07/26/2018 3:30 PM CDT)Only the most recent of2 resultswithin the time period is included. Pathologist [facility] Urine culture SEE COMMENTComment: [facility] Bacteriuria screen HOSPITAL negative. Specimen Performing Organization Address City/[facility]/Zipcode Phone Number [facility] DEPARTMENT OF PATHOLOGY AND [address] [place] [phone] [place] [phone] Troponin (07/26/2018 3:00 PM CDT)Only the most recent of2 resultswithin the time period is included. [facility] Troponin <0.30 0.00 - 0.30 [facility] Comment: ng/mL HOSPITAL 0.30 - 1.49 ng/mlMay indicate increased risk of acute coronary syndrome. >=1.5 ng/mlConsistent with acute myocardial infarction. The diagnostic value of a single normal or non-diagnostic result is questionable.Serial samples at 2-6 hour intervals are required to rule out acute myocardial injury. Specimen Plasma specimen Performing Organization Address City/[facility]/Zipcode Phone Number [facility] DEPARTMENT OF PATHOLOGY AND [address] [place] [phone] [place] [phone] Partial thromboplastin time, activated (07/26/2018 3:00 PM CDT) [facility] PTT 24.6 23.0 - 36.0 [facility] Comment: [facility] PTT therapeutic range for unfractionated heparin is 61.0-112.0 seconds which corresponds to Anti-Xa 0.3-0.7 U/ml. Specimen Blood Performing Organization Address City/State/Zipcode Phone Number [facility] DEPARTMENT OF PATHOLOGY AND [address] [place] [phone] [place] [phone] Prothrombin time with INR (07/26/2018 3:00 PM CDT) Prothrombin time 12.9 11.5 - 14.5 [facility] INR 1.0 [place] Comment: [facility] [place], [place] International Normalized Ratio (INR) is a therapeutic HOSPITAL monitoring tool for patients who are stable on oral anticoagulant therapy. An INR of 2.0-3.0 is suggested for deep vein thrombosis/pulmonary embolism. Specimen Blood Performing Organization Address City/[facility] Phone Number [facility] DEPARTMENT OF PATHOLOGY AND [address] [place] [address] Lactic acid level (07/26/2018 3:00 PM CDT) [facility] Lactic acid 1.9 0.5 - 2.2 mmol/L [facility] Specimen Plasma specimen Performing Organization Address [facility] Phone Number [facility] DEPARTMENT OF PATHOLOGY AND [address] [place] [address] Us duplex venous lower extremity (07/26/2018 1:40 PM CDT) Specimen Narrative Performed At [facility] Vascular Ultrasound Laboratory Lower Extremity Venous Report [address] [place] [address] Pat.Name:GAYE CASTRO Pat.ID:[id number] .Date: 07/26/2018 Refer.MD:PHYSICIAN, EMERGENCY, MD Exam Time: 12:46:00 PM Study Type:LE Venous Height:60inWeight: 273lb BSA: 2.13 m2 DOBAge:1960,57Y Sex: FEMALE Sonogrphr: DIEGO Goddard, RDCS, RVT Pat. Stat.:Inpatient Room:ED-42 TapeVol: KG, CPT - 4: 38511 Echo Event ID:[id number] Order ID:[id number] Reason for Study:Bilateral leg swelling, DVT suspected. PMHx HTN, HLD and morbid obesity. Procedures:Colorflow, Grayscale/2D, Pulsed wave Doppler Race:White SUMMARY: DUPLEX SCAN OBSERVATIONS Deep VeinsSuperficial Veins RightLeft RightLeft GSV (prox) NormalNormal CFV Pulsatile Pulsatile (above knee) Femoral (prox) Normal Normal GSV (dist) Not Visualized Not Visualized Profunda Pulsatile Pulsatile (below knee) Popliteal Pulsatile Normal PT (prox) Not Visualized Not visualizedSSV Normal Normal PT (dist) Not Visualized Normal Peroneal Not Visualized Not Visualized Gastroc Normal Normal RIGHT:There is pulsatile flow noted in the common femoral vein, profunda and popliteal veins. The remaining visualized veins are patent. The kwj-at-xopsqn femoral, posterior tibial, peroneal and greater saphenous vein below knee were not visualized due to edema and patient body habitus. LEFT: There is pulsatile flow noted in the common femoral vein and profunda veins. The remaining visualized veins are patent. The cad-ri-ujlblo femoral, proximal posterior tibial, peroneal and greater saphenous vein below knee were not visualized due to edema and patient body habitus. PRELIMINARY FINDINGS 1. No evidence of thrombosis in the the visualized veins. 2. There is pulsatile flow noted in the common femoral vein and profunda veins, bilaterally. 3. There is pulsatile flow in the right popliteal vein. 4. Technically difficult study due to patient body habitus and edema. PHYSICIAN INTERPRETATION Venous examination of the both lower extremities demonstrated no evidence of venous thrombosis in the visualized veins. Signed 07/26/2018 04:45 PM Guillermo Leach MD, RPVI Procedure Note Interface, Radiology Results In - 07/26/2018 4:46 PM CDT Vascular Ultrasound Laboratory Lower Extremity Venous Report [id number] [place] [address] Pat.Name: GAYE CASTRO Pat.ID: [id number] .Date: 07/26/2018 Refer.MD: PHYSICIAN, EMERGENCY, Exam Time: 12:46:00 PM Study Type:LE Venous Height: 60in Weight: 273lb BSA: 2.13 m2 Age: 9 1960,57Y Sex: FEMALE Sonogrphr: DIEGO Goddard, RDCS, RVT Pat. Stat.:Inpatient Room: ED-42 Tape Vol: KG, CPT - 4: 00957 Echo Event ID:[id number] Order ID: [id number] Reason for Study:Bilateral leg swelling, DVT suspected. PMHx HTN, HLD and morbid obesity. Procedures:Colorflow, Grayscale/2D, Pulsed wave Doppler Race: White SUMMARY: DUPLEX SCAN OBSERVATIONS Deep Veins Superficial Veins Right Left Right Left GSV (prox) Normal Normal CFV Pulsatile Pulsatile (above knee) Femoral (prox) Normal Normal GSV (dist) Not Visualized Not Visualized Profunda Pulsatile Pulsatile (below knee) Popliteal Pulsatile Normal PT (prox) Not Visualized Not visualized SSV Normal Normal PT (dist) Not Visualized Normal Peroneal Not Visualized Not Visualized Gastroc Normal Normal RIGHT: There is pulsatile flow noted in the common femoral vein, profunda and popliteal veins. The remaining visualized veins are patent. The wlu-tn-desrky femoral, posterior tibial, peroneal and greater saphenous vein below knee were not visualized due to edema and patient body habitus. LEFT: There is pulsatile flow noted in the common femoral vein and profunda veins. The remaining visualized veins are patent. The ngd-hj-ytdwhx femoral, proximal posterior tibial, peroneal and greater saphenous vein below knee were not visualized due to edema and patient body habitus. PRELIMINARY FINDINGS 1. No evidence of thrombosis in the the visualized veins. 2. There is pulsatile flow noted in the common femoral vein and profunda veins, bilaterally. 3. There is pulsatile flow in the right popliteal vein. 4. Technically difficult study due to patient body habitus and edema. PHYSICIAN INTERPRETATION Venous examination of the both lower extremities demonstrated no evidence of venous thrombosis in the visualized veins. Signed 07/26/2018 04:45 PM Guillermo Leach MD, RPVI Performing Organization Address City/State/Zipcode Phone Number [facility] [address] [place] [address] CT Angiogram Pe Chest (07/26/2018 11:13 AM CDT) Specimen Narrative Performed At EXAMINATION: [facility] CT ANGIOGRAM PE CHEST CLINICAL HISTORY:57 years Female PE suspectedhigh pretest prob TECHNIQUE:CT angiographic images of the chest were obtained during intravenous administration of iodinated contrast. Computerized reformatted images and 3-D MIP images were also obtained and archived (CT pulmonary embolus protocol). CT imaging was performed with iterative reconstruction techniques and/or automated exposure control to reduce radiation dose. COMPARISON: 01/15/2015 FINDINGS: CHEST: Pulmonary arteries: No evidence of acute pulmonary embolism. The main pulmonary artery measures 3.5 cm. Lungs and airways: There are linear and curvilinear changes bilaterally that are similar to the 01/15/2015 study consistent with chronic disease. Patchy mosaic groundglass opacities are present bilaterally. There are no acute consolidations or suspicious pulmonary nodules. Pleura: No pleural effusion or pneumothorax. Mediastinum and lymph nodes: No lymphadenopathy. Cardiovascular: The heart size is slightly enlarged. No pericardial effusion. The thoracic aorta is normal in caliber. The visualized great vessels are unremarkable. Upper abdomen: The gallbladder is contracted and calcifications are noted at the gallbladder fundus. Eight stable 3.3 cm low density mass is present in the left adrenal gland. Bones: No suspicious osseous lesions. Other: Couple of tiny hypodense nodules are present in the left thyroid lobe. IMPRESSION: 1.No CT evidence of acute pulmonary thromboembolic disease. 2.Mild enlargement of the main pulmonary artery which may represent pulmonary hypertension. 3.Chronic bilateral parenchymal bands without significant change compared to the 01/05/2015 study. 4.Mosaic attenuation likely related to small vessel or small airways disease. 5.Benign left adrenal adenoma. 6.Stable calcified gallbladder fundus. [facility]-[id number] Procedure Note [facility], Radiology Results Incoming - 07/26/2018 11:31 AM CDT EXAMINATION: CT ANGIOGRAM PE CHEST CLINICAL HISTORY:57 years Female PE suspected high pretest prob TECHNIQUE: CT angiographic images of the chest were obtained during intravenous administration of iodinated contrast. Computerized reformatted images and 3-D MIP images were also obtained and archived (CT pulmonary embolus protocol). CT imaging was performed with iterative reconstruction techniques and/or automated exposure control to reduce radiation dose. COMPARISON: 01/15/2015 FINDINGS: CHEST: Pulmonary arteries: No evidence of acute pulmonary embolism. The main pulmonary artery measures 3.5 cm. Lungs and airways: There are linear and curvilinear changes bilaterally that are similar to the 01/15/2015 study consistent with chronic disease. Patchy mosaic groundglass opacities are present bilaterally. There are no acute consolidations or suspicious pulmonary nodules. Pleura: No pleural effusion or pneumothorax. Mediastinum and lymph nodes: No lymphadenopathy. Cardiovascular: The heart size is slightly enlarged. No pericardial effusion. The thoracic aorta is normal in caliber. The visualized great vessels are unremarkable. Upper abdomen: The gallbladder is contracted and calcifications are noted at the gallbladder fundus. Eight stable 3.3 cm low density mass is present in the left adrenal gland. Bones: No suspicious osseous lesions. Other: Couple of tiny hypodense nodules are present in the left thyroid lobe. IMPRESSION: 1. No CT evidence of acute pulmonary thromboembolic disease. 2. Mild enlargement of the main pulmonary artery which may represent pulmonary hypertension. 3. Chronic bilateral parenchymal bands without significant change compared to the 01/05/2015 study. 4. Mosaic attenuation likely related to small vessel or small airways disease. 5. Benign left adrenal adenoma. 6. Stable calcified gallbladder fundus. [facility]-[id number] Performing Organization Address City/State/Zipcode Phone Number [facility] [address] [place] [address] ECG ED Preliminary Interpretation - Not an Order (07/26/2018 10:27 AM CDT) Narrative Performed At Andrea Haji DO 07/27/20184:42 PM ECG ED Preliminary Interpretation - Not an Order Performed by: Andrea Haji DO Authorized by: Andrea Haji DO ECG reviewed by ED Physician in the absence of a magnetizer: yes Interpretation: Interpretation: abnormal Rate: ECG rate:75 Rhythm: Rhythm: sinus rhythm Ectopy: Ectopy: PAC and PVCs QRS: QRS axis:Normal QRS intervals:Normal Conduction: Conduction: normal ST segments: ST segments:Normal T waves: T waves: non-specific Other findings: Other findings: prolonged qTc interval Respiratory pathogen panel (07/26/2018 10:25 AM CDT) Respiratory Negative for all pathogens tested: [place] pathogen panel Negative for Adenovirus CHEONDOISM Negative for Coronavirus HKU1 [facility] Negative for Coronavirus NL63 Negative for Coronavirus 229E Negative for Coronavirus OC43 Negative for Human Metapneumovirus Negative for Rhinovirus/Enterovirus Negative for Influenza A Negative for Influenza A/H1 Negative for Influenza A/H3 Negative for Influenza A/H1-2009 Negative for Influenza B Negative for Parainfluenza Virus 1 Negative for Parainfluenza Virus 2 Negative for Parainfluenza Virus 3 Negative for Parainfluenza Virus 4 Negative for Respiratory Syncytial Virus Negative for Bordetella pertussis Negative for Chlamydophila pneumoniae Negative for Mycoplasma pneumoniae This real-time PCR assay detects the presence of nucleic acids (RNA or DNA) for the respiratory pathogens listed. A result of "Not-detected" does not exclude the possibility of the presence of one or more pathogens at concentrations less than the detectable limits of the assay. Comment: Specimen Information Specimen Source: Nares Specimen Site: Left Specimen Nares - Left Performing Organization Address City/[facility] Phone Number [facility] DEPARTMENT OF PATHOLOGY AND [address] [place] [address] Venous blood gas (07/26/2018 10:23 AM CDT) [facility] pH, venous 7.45 (H) 7.32 - 7.42 [facility] pCO2, venous 44 (L) 45 - [address] [facility] pO2, venous 62 (H) 25 - [address] [facility] Base excess, venous 6 (H) -2 - 2 meq/L [facility] O2 saturation, 92 (H) 40 - 70 % [facility] Bicarbonate, venous 30.2 (H) 21.0 - 28.0 [facility] mmol/L HOSPITAL Specimen Blood Performing Organization Address City/[facility]a Phone Number [facility] DEPARTMENT OF PATHOLOGY AND [address] [place] [address] ECG 12 lead (07/26/2018 9:49 AM CDT) Ventricular rate 75 [facility] MUSE Atrial rate 75 [facility] MUSE [place] interval 174 [facility] MUSE QRSD interval 106 [facility]USE QT interval 414 [facility] MUSE QTC interval 462 [facility] MUSE P axis 1 64 [facility] MUSE QRS axis 1 74 [facility] MUSE T wave axis 48 [facility] MUSE EKG impression Sinus rhythm with [facility] MUSE occasional premature ventricular complexes and premature atrial complexes-Nonspecific T wave abnormality-Prolonged QT-Abnormal ECG- Specimen Narrative Performed At Performing Organization Address City/[facility]/Zipcode Phone Number [place] [phone] [place] [phone] CBC with platelet and differential (07/26/2018 9:45 AM CDT) WBC 14.94 (H) 4.50 - 11.00 [facility] k/uL HOSPITAL RBC 4.73 4.20 - 5.50 [facility] m/uL HOSPITAL HGB 12.6 12.0 - 16.0 [facility] g/dL [facility] HCT 40.5 37.0 - 47.0 % [facility] MCV 85.6 82.0 - 100.0 [facility] MCH 26.6 (L) 27.0 - 34.[address] [facility] MCHC 31.1 31.0 - 37.0 [facility] RDW - SD 49.1 37.0 - 55.[address] [facility] MPV 9.8 8.8 - 13.[address] [facility] Platelet count 346 150 - 400 k/uL [facility] Nucleated RBC 0.00 /[address] [facility] Neutrophils 80.8 (H) 39.0 - 69.0 % [facility] Lymphocytes 13.4 (L) 25.0 - 45.0 % [facility] Monocytes 5.1 0.0 - 10.0 % [facility] Eosinophils 0.0 0.0 - 5.0 % [facility] Basophils 0.1 0.0 - 1.0 % [facility] Immature granulocytes 0.6Comment: 0.0 - 1.0 % [facility] "Immature HOSPITAL granulocytes" (promyelocytes , myelocytes, metamyelocytes ) Specimen Blood Performing Organization Address City/State/Zipcode Phone Number [facility] DEPARTMENT OF PATHOLOGY AND [address] [place] [phone] [address] B natriuretic peptide (07/26/2018 9:45 AM CDT) BNP 34 0 - 100 pg/mL [facility] Specimen Blood Performing Organization Address City/State/Zipcode Phone Number [facility] DEPARTMENT OF PATHOLOGY AND [address] [place] [phone] [address] Comprehensive metabolic panel (07/26/2018 9:45 AM CDT) Sodium 138 135 - 148 [facility] mEq/L [facility] Potassium 4.1 3.5 - 5.0 [facility] mEq/L [facility] Chloride 96 (L) 98 - 112 mEq/L [facility] CO2 26 24 - 31 mEq/L [facility] Anion gap 16@ANIO (H) 7 - 15 mEq/L [facility] BUN 29 (H) 6 - 20 mg/dL [facility] Creatinine 0.91 (H) 0.50 - 0.90 [facility] mg/dL [facility] Glucose 175 (H) 65 - 99 mg/dL [facility] Calcium 9.3 8.3 - 10.2 [facility] mg/dL [facility] Protein 8.8 (H) 6.3 - 8.3 g/dL [facility] Comment: HOSPITAL Anatone 4.6-7.0 g/dL 1 week 4.4-7.6 g/dL 7 months-1year5.1-7.3 g/dL 1-2 years5.6-7.5 g/dL >3 years6.0-8.0 g/dL 18-150 6.3-8.3 g/dL Albumin 3.9 3.5 - 5.0 g/dL [facility] A/G ratio 0.8 0.7 - 3.8 [facility] Alkaline phosphatase 73 35 - 104 U/L [facility] AST 20 10 - 35 U/L [facility] ALT 26 5 - 50 U/L [facility] Total bilirubin 0.8 0.0 - 1.2 [facility] mg/dL [facility] Specimen Plasma specimen Performing Organization Address City/State/[facility] Phone Number [facility] DEPARTMENT OF PATHOLOGY AND [address] [place] [phone] [facility] [address] [place] [phone] after 12/08/2017 Insurance Payer Benefit Plan / Subscriber ID Effective Dates Phone Address Type Group [employer] [facility] Advance Directives For more information, please contact: [phone] Type Date Recorded Patient Microfiche Duplicator Explanation Advance Directives, Living Will and Medical Power of Cartridge Feeder Advance Directives, Living Will 08/06/2018 8:24 AM POA/09/29/17 and Medical Power of Cartridge Feeder Advance Directives, Living Will 08/06/2018 8:24 AM ADV/09/29/17 and Medical Power of Cartridge Feeder Code Status Date Activated Date Inactivated Comments Full Code 09/22/2016 3:09 AM 09/26/2016 5:53 PM Code Status decision reached by: Patient
--- OUTSIDE RECORDS SUMMARY | 2018-12-09 12:50 | XMS REPORT ---
[...] Instructions Start End Status Dosage System Date [facility] 11046126102 81 MG Orally Active 1 tablet Once a day Furosemide [facility] 79087385051 80 MG Orally Active 1 tablet Twice a day Ultram [facility] 24151315045 50 MG Orally Active 1 tablet once a day as as needed needed Vitamin B12 ND 00856808235 1000 MCG Orally Active 1 tablet Once a day Metolazone [facility] 89890973707 2.5 MG Orally Active 1 tablet Once a day Citalopram [facility] 22809237967 40 MG Orally Active 1 tablet Hydrobromide Once a day Breo Ellipta [facility] 73629554498 100-25 MCG/INH Active 1 puff Inhalation Once a day HydrALAZINE HCl [facility] 87533137504 25 MG Orally Active 1 tablet Three times a with food day Cozaar [facility] 55736044487 50 MG Orally Active 1 tablet Once a day Pantoprazole [facility] 45019774240 40 MG Orally Active 1 tablet Sodium Once a day Spironolactone [facility] 88025329700 25MG Orally Active 1 tablet Twice a day with food Citalopram [facility] 76902289432 40 MG Orally Active 1 tablet Hydrobromide Once a day Alprazolam [facility] 12231005316 0.25 MG Orally Active 1 tablet Twice a day PRN SEVERE ANXIETY Ventolin HFA [facility] 74261415065 108 (90 Base) Active 2 puffs as MCG/ACT needed Inhalation every 6 hrs HydrOXYzine HCl [facility] 50418202988 25 MG Orally Apr 07, Active 1 tablet every 8 hrs PRN 2019 as needed Itching Carvedilol [facility] 30759343540 3.125 MG Orally Active as BID directed Results No Known Results Summary Purpose eClinicalWorks Submission
--- OUTSIDE RECORDS SUMMARY | 2018-12-09 12:50 | XMS REPORT ---
:1960 [facility] Address [address] [place] [address] [address] [place] [address] Care Team Providers Name Role Phone Unavailable [...] to exam dated 04/29/2018 mammogram - [facility]. Real-time ultrasound of both breasts [...] demonstrate stability. Sandra Tolentino M.D. dm/:06/25/2018 11:07:59 Manager In Training: Lyla SALAS, [facility]-FWletter sent: Short Term Follow Up Ultrasound BI-RADS: 3 Probably benign SCR MAMM BILATERAL TESHA 2018-05-10 16:41:30 - SCR MAMM BILATERAL TESHA CAD CAD DIGITAL DIGITALBILATERAL FIRST EVER DIGITAL SCREENING MAMMOGRAM 3D/2D WITH CAD: 04/29/2018CLINICAL: Asymptomatic. Digital breast tomosynthesis was performed in addition to routine CC and MLO views. Current mammographic images were evaluated by either a [facility] or an iCAD version 7.2 computer [...] 05/11/2018 14:26:43Imaging Technologist: Marya Hartman MM, [facility] Additional Imaging Mammogram BI-RADS: [...]
--- OUTSIDE RECORDS SUMMARY | 2018-12-09 12:50 | XMS REPORT ---
[...] End Status Dosage System Date Date Alprazolam [facility] 61659371450 0.25 MG Orally Inactive 1 tablet Twice a day PRN SEVERE ANXIETY Carvedilol [facility] 87219076084 3.125 MG Orally Active as BID directed Spironolactone ND 88717606538 25MG Orally Active 1 tablet Twice a day with food Breo Ellipta [facility] 35719992143 100-25 MCG/INH Active 1 puff Inhalation Once a day Pantoprazole [facility] 06147545193 40 MG Orally Active 1 tablet Sodium Once a day Ventolin HFA [facility] 34547721835 108 (90 Base) Active 2 puffs as MCG/ACT needed Inhalation every 6 hrs Citalopram [facility] 19565116529 40 MG Orally Active 1 tablet Hydrobromide Once a day Citalopram [facility] 12428296006 40 MG Orally Active 1 tablet Hydrobromide Once a day Cozaar [facility] 14466715912 50 MG Orally Active 1 tablet Once a day HydrOXYzine ND 81825229819 25 MG Orally Apr 22, Active 1 capsule Pamoate every 8 hrs 2019 as needed Ultram ND 37411059400 50 MG Orally May Active 1 tablet once a day as 16, as needed needed 2019 Aspir-81 [facility] 99639101620 81 MG Orally Active 1 tablet Once a day Furosemide ND 42807948891 80 MG Orally Active 1 tablet Twice a day Metolazone [facility] 72112942293 2.5 MG Orally Active 1 tablet Once a day Vitamin B12 [facility] 78071530478 1000 MCG Orally Active 1 tablet Once a day HydrALAZINE HCl [facility] 99840793679 25 MG Orally Active 1 tablet Three times a with food day Results No Known Results Summary Purpose eClinicalWorks Submission
--- OUTSIDE RECORDS SUMMARY | 2018-12-09 12:50 | XMS REPORT ---
[...] End Status Dosage System Date Date Pantoprazole [facility] 32107673340 40 MG Orally Active 1 tablet Sodium Once a day Citalopram [facility] 74403368777 40 MG Orally Active 1 tablet Hydrobromide Once a day Cozaar [facility] 16111660358 50 MG Orally Active 1 tablet Once a day Potassium [facility] 89946154231 20 MEQ Orally June Active 1 packet Chloride Once a day , with food 2018 2018 HydrOXYzine [facility] 46965308167 25 MG Orally Active 1 capsule Pamoate every 8 hrs as needed Vitamin B12 [facility] 55344710150 1000 MCG Active 1 tablet Orally Once a day Metolazone [facility] 26379737620 2.5 MG Orally Active 1 tablet Once a day Aspir-81 [facility] 82353211518 81 MG Orally Active 1 tablet Once a day Citalopram [facility] 61779251957 40 MG Orally Active 1 tablet Hydrobromide Once a day Spironolactone [facility] 20880132258 25MG Orally Active 1 tablet Twice a day with food Furosemide [facility] 22159550706 80 MG Orally Active 1 tablet Twice a day Alprazolam [facility] 92889644614 0.25 MG Orally Inactive 1 tablet Twice a day PRN SEVERE ANXIETY Carvedilol [facility] 79192599198 3.125 MG Active as Orally BID directed Ventolin HFA [facility] 47709631547 108 (90 Base) Active 2 puffs as MCG/ACT needed Inhalation every 6 hrs Breo Ellipta [facility] 41078180416 100-25 MCG/INH Active 1 puff Inhalation Once a day Tramadol HCl [facility] 61059542136 50 MG Orally June Active take 1 tab Once a day as , needed SEVERE 2019 PAIN HydrALAZINE HCl [facility] 13534609966 25 MG Orally Active 1 tablet Three times a with food day Results No Known Results Summary Purpose eClinicalWorks Submission
--- OUTSIDE RECORDS SUMMARY | 2018-12-09 12:50 | XMS REPORT ---
:1960 Author Organization eClinicalWorks Care Team Providers Name Role Phone [facility] Provider Role Unavailable Allergies, Adverse Reactions, Alerts [...] Status Dosage System Date Date Ventolin HFA [facility] 00504234242 108 (90 Base) Active 2 puffs as MCG/ACT needed Inhalation every 6 hrs HydrOXYzine ND 85261025531 25 MG Orally Apr 22, Active 1 capsule Pamoate every 8 hrs 2019 as needed Pantoprazole [facility] 84861373213 40 MG Orally Active 1 tablet Sodium Once a day Cozaar ND 78431936169 50 MG Orally Active 1 tablet Once a day Spironolactone ND 57877159148 25MG Orally Active 1 tablet Twice a day with food Citalopram [facility] 57070409901 40 MG Orally Active 1 tablet Hydrobromide Once a day Augmentin [facility] 83207593421 875-125 MG May 27June Active 1 tablet Orally every 2018 03, hrs 2019 Aspir-81 [facility] 46792142100 81 MG Orally Active 1 tablet Once a day Furosemide ND 35482925295 80 MG Orally Active 1 tablet Twice a day Vitamin B12 [facility] 50709645515 1000 MCG Orally Active 1 tablet Once a day HydrALAZINE HCl [facility] 49828793600 25 MG Orally Active 1 tablet Three times a with food day Metolazone [facility] 70327258481 2.5 MG Orally Active 1 tablet Once a day Carvedilol [facility] 65791656703 3.125 MG Orally Active as BID directed Citalopram [facility] 34966387044 40 MG Orally Active 1 tablet Hydrobromide Once a day Breo Ellipta [facility] 20306440507 100-25 MCG/INH Active 1 puff Inhalation Once a day Results No Known Results Summary Purpose eClinicalWorks Submission
--- OUTSIDE RECORDS SUMMARY | 2018-12-09 12:50 | XMS REPORT ---
[...] Status Dosage System Date Date Carvedilol ND 52736623821 3.125 MG Orally Active as directed BID Aspir-81 ND 53602071473 81 MG Orally Active 1 tablet Once a day Ultram ND 85370239145 50 MG Orally Active 1 tablet as once a day as needed needed HydrALAZINE HCl ND 48336057370 25 MG Orally Active 1 tablet Three times a with food day Cozaar ND 34175954598 50 MG Orally Active 1 tablet Once a day Ventolin HFA ND 26515522479 108 (90 Base) Active 2 puffs as MCG/ACT needed Inhalation every 6 hrs Breo Ellipta [facility] 44930939314 100-25 MCG/INH Active 1 puff Inhalation Once a day Furosemide [facility] 90441204558 80 MG Orally Active 1 tablet Twice a day Citalopram [facility] 93566605747 40 MG Orally Active 1 tablet Hydrobromide Once a day Alprazolam [facility] 43280532874 0.25 MG Orally Active 1 tablet Twice a day PRN SEVERE ANXIETY Pantoprazole [facility] 52314122425 40 MG Orally Active 1 tablet Sodium Once a day Vitamin B12 [facility] 78079248096 1000 MCG Orally Active 1 tablet Once a day Results No Known Results Summary Purpose eClinicalWorks Submission
--- OUTSIDE RECORDS SUMMARY | 2018-12-09 12:51 | XMS REPORT ---
[...] End Status Dosage System Date Date Pantoprazole [facility] 86087399870 40 MG Orally Active 1 tablet Sodium Once a day Cozaar [facility] 29593777102 50 MG Orally Active 1 tablet Once a day Metolazone [facility] 88628144657 2.5 MG Orally Active 1 tablet Once a day Carvedilol [facility] 94185664371 3.125 MG Orally Active as BID directed Aspir-81 [facility] 14560610464 81 MG Orally Active 1 tablet Once a day Citalopram [facility] 62993303748 40 MG Orally Active 1 tablet Hydrobromide Once a day Breo Ellipta [facility] 60292174289 100-25 MCG/INH Active 1 puff Inhalation Once a day HydrALAZINE HCl [facility] 88947976061 25 MG Orally Active 1 tablet Three times a with food day Vitamin B12 [facility] 09577535806 1000 MCG Orally Active 1 tablet Once a day Citalopram [facility] 65588387350 40 MG Orally Active 1 tablet Hydrobromide Once a day Furosemide [facility] 92597597508 80 MG Orally Active 1 tablet Twice a day Tramadol HCl [facility] 58190500759 50 MG Orally Active take 1 tab Once a day as needed SEVERE PAIN Ventolin HFA [facility] 31713697428 108 (90 Base) Active 2 puffs as MCG/ACT needed Inhalation every 6 hrs Carvedilol [facility] 79196285545 3.125 MG Orally Active as BID directed Spironolactone [facility] 24063186515 25MG Orally Active 1 tablet Twice a day with food HydrOXYzine [facility] 06150855012 25 MG Orally Active 1 capsule Pamoate every 8 hrs as needed Results No Known Results Summary Purpose eClinicalWorks Submission
--- OUTSIDE RECORDS SUMMARY | 2018-12-09 12:51 | XMS REPORT ---
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
--- OUTSIDE RECORDS SUMMARY | 2018-12-09 12:51 | XMS REPORT ---
[...] Medications Results No Known Results Summary Purpose [employer] Submission
--- OUTSIDE RECORDS SUMMARY | 2018-12-09 12:51 | XMS REPORT ---
[...] Start End Status Dosage System Date Date Tramadol HCl [facility] 55090391090 50 MG Orally Active take 1 tab Once a day as needed SEVERE PAIN Citalopram [facility] 38446946130 40 MG Orally Active 1 tablet Hydrobromide Once a day Furosemide ND 09562359892 20 MG Orally July Inactive 3 tablet Twice a day [address] [facility] 85131984580 25 MG Orally Jan 13, Inactive 1 tablet Twice a day 2017 with food Breo Ellipta [facility] 32570917928 100-25 MCG/INH Feb 07, Active 1 puff Inhalation 2018 Once a day Klor-Con M20 [facility] [address]-02 20 MEQ Orally Active 2 tablet Once a day with food Fluticasone [facility] [address]-29 50 MCG/ACT Active 1 spray in Propionate Nasally Once a each day nostril as needed HydrOXYzine [facility] 71100715740 25 MG Orally Active 1 capsule Pamoate every 8 hrs as needed Aspir-[address] [facility] 86556768065 81 MG Orally Active 1 tablet Once a day Metolazone [facility] 05123672580 2.5 MG Orally Active 1 tablet Once a day Albuterol Sulfate [facility] 64004522105 (2.5 MG/3ML) Active 3 ml as 0.083% needed Inhalation every 8 hrs Ventolin HFA [facility] 40877532246 108 (90 Base) Active 2 puffs as MCG/ACT needed Inhalation every [address] [facility] 55464725945 18 MCG Active 1 capsule HandiHaler Inhalation Once a day Vitamin C [facility] 24983353761 500 MG Orally Active 1 tablet Once a day Carvedilol [facility] 83617427248 3.125 MG Active as Orally BID directed Citalopram [facility] 17560486809 40 MG Orally Active 1 tablet Hydrobromide Once a day Incruse Ellipta [facility] 41655945183 62.5 MCG/INH Active 1 puff Inhalation Once a day Potassium [facility] 84290019189 20 MEQ Orally June Inactive 1 packet Chloride Once a day , with food 2018 [address] [facility] 78435601346 1000 MCG Active 1 tablet Orally Once a day Pantoprazole [facility] 10693413164 40 MG Orally Active 1 tablet Sodium Once a day Carvedilol [facility] 15560671191 3.125 MG Active as Orally BID directed Acetaminophen [facility] [address]-10 500 MG Orally Active 1 tablet every 6 hrs as needed for mild pain Spironolactone [facility] [address]-43 25MG Orally Active 1 tablet Twice a day with food Sildenafil [facility] 92957400679 20 MG Orally Active 1 tablet Citrate Three times a day Alprazolam [facility] [address]-06 0.25 MG Orally Active 1 tablet at bedtime as needed for anxiety Results No Known Results Summary Purpose eClinicalWorks Submission
--- OUTSIDE RECORDS SUMMARY | 2018-12-09 12:51 | XMS REPORT ---
[...] K21.9 Active without esophagitis Medications Medication Code System Code Instructions Start Date End Date Status Dosage Metolazone [facility] 98530455647 2.5 MG Orally Active 1 tablet Once a week Results No Known Results Summary Purpose eClinicalWorks Submission
--- OUTSIDE RECORDS SUMMARY | 2018-12-09 12:51 | XMS REPORT ---
[...] End Status Dosage System Date Date Carvedilol [facility] 46769712801 3.125 MG Active as Orally BID directed HydrOXYzine ND 60877925068 25 MG Orally Active 1 capsule Pamoate every 8 hrs as needed Potassium [facility] [address]-42 20 MEQ Orally June Active 2 tablets Chloride once weekly , , with food 2018 2018 Spironolactone ND 47912427177 25MG Orally Active 1 tablet Twice a day with food Citalopram [facility] 22366692323 40 MG Orally Active 1 tablet Hydrobromide Once a day Metolazone ND 53968994064 2.5 MG Orally Active 1 tablet Once a day HydrALAZINE HCl ND 09509220656 25 MG Orally Active 1 tablet Three times a with food day Ventolin HFA [facility] 56395628309 108 (90 Base) Active 2 puffs as MCG/ACT needed Inhalation every 6 hrs Breo Ellipta [facility] 89154586540 100-25 MCG/INH Active 1 puff Inhalation Once a day Furosemide [facility] 30794091997 20 MG Orally Active 3 tablet Twice a day Tramadol HCl [facility] 91470458899 50 MG Orally June Active take 1 tab Once a day as 05, needed SEVERE 2019 PAIN Citalopram [facility] 94117565197 40 MG Orally Active 1 tablet Hydrobromide Once a day Cozaar [facility] 35299716067 50 MG Orally Active 1 tablet Once a day -[address] [facility] 56601392626 81 MG Orally Active 1 tablet Once a day Vitamin B12 [facility] 64931105633 1000 MCG Active 1 tablet Orally Once a day Pantoprazole [facility] 18600822498 40 MG Orally Active 1 tablet Sodium Once a day Results No Known Results Summary Purpose eClinicalWorks Submission
--- OUTSIDE RECORDS SUMMARY | 2018-12-09 12:51 | XMS REPORT ---
:1960 Author Organization eClinicalWorks Care Team Providers Name Role Phone Julio Verah Provider Role Unavailable Allergies, Adverse Reactions, Alerts Substance Reaction Event Type N.K.D.A. Info Not Available Non Drug Allergy Problems Problem Type Condition Code Onset Dates Condition Status Assessment Morbid obesity due to excess E66.01 Active calories Assessment Gastro-esophageal reflux disease K21.9 Active without esophagitis Assessment Lymphedema I89.0 Active Assessment Back pain M54.9 Active Assessment Depression with anxiety F41.8 Active Assessment Hyperlipidemia, mixed E78.2 Active Assessment O2 dependent Z99.81 Active Assessment Left knee pain, unspecified M25.562 Active chronicity Assessment DNR (do not resuscitate) Z66 Active Problem Hyperlipidemia, mixed E78.2 Active Assessment Chronic respiratory failure, J96.10 Active unspecified whether with hypoxia or hypercapnia Problem Gastro-esophageal reflux disease K21.9 Active without esophagitis Assessment Benign essential HTN I10 Active Problem Depression with anxiety F41.8 Active Problem O2 dependent Z99.81 Active Problem 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 Problem Chronic respiratory failure, J96.10 Active unspecified whether with hypoxia or hypercapnia Problem Morbid obesity due to excess E66.01 Active calories Assessment Chronic bronchitis with COPD J44.9 Active (chronic obstructive pulmonary disease) Assessment 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 disorder without prior episode Problem Abnormal mammogram R92.8 Active Assessment 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 Problem Chronic diastolic heart failure I50.32 Active [...] End Status Dosage System Date Date Pantoprazole [facility] 22911907501 40 MG Orally Active 1 tablet Sodium Once a day Carvedilol [facility] 57476915712 3.125 MG Orally Active as BID directed Citalopram [facility] 38446563306 40 MG Orally Active 1 tablet Hydrobromide Once a day Sildenafil [facility] 20942909564 20 MG Orally Active 1 tablet Citrate Three times a day Citalopram [facility] 76664696780 40 MG Orally Active 1 tablet Hydrobromide Once a day Aspir-81 [facility] 06634775446 81 MG Orally Active 1 tablet Once a day Tramadol HCl [facility] 08835419051 50 MG Orally Active take 1 tab Once a day as needed SEVERE PAIN Spironolactone [facility] 37791873496 25MG Orally Active 1 tablet Twice a day with food Vitamin B12 [facility] 05333308992 1000 MCG Orally Active 1 tablet Once a day HydrALAZINE HCl [facility] 93513677115 25 MG Orally Inactive 1 tablet Three times a with food day Breo Ellipta [facility] 93624516670 100-25 MCG/INH Nov Active 1 puff Inhalation Once 04, a day 2018 HydrOXYzine [facility] 80602965544 25 MG Orally Active 1 capsule Pamoate every 8 hrs as needed Ventolin HFA [facility] 21826031897 108 (90 Base) Active 2 puffs as MCG/ACT needed Inhalation every 6 hrs Metolazone [facility] 68515171724 2.5 MG Orally Active 1 tablet Once a day Furosemide [facility] 72448034739 80 MG Orally Active 1 tablet Twice a day Carvedilol [facility] 35823536733 3.125 MG Orally Active as BID directed Cozaar [facility] 29941360705 50 MG Orally Inactive 1 tablet Once a day Results No Known Results Summary Purpose eClinicalWorks Submission
--- OUTSIDE RECORDS SUMMARY | 2018-12-09 12:52 | XMS REPORT ---
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 Problem Chronic diastolic heart failure I50.32 Active Problem O2 dependent Z99.81 Active Problem Abnormal mammogram R92.8 Active Assessment Chronic diastolic heart failure I50.32 Active Problem Chronic respiratory failure, J96.10 Active unspecified whether with hypoxia or hypercapnia Problem Generalized anxiety disorder F41.1 Active Problem Adult BMI 50.0-59.9 kg/sq m Z68.43 Active Problem DNR (do not resuscitate) Z66 Active Problem Morbid obesity due to excess E66.01 Active calories Problem 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 disorder without prior episode Problem Benign essential HTN I10 Active Problem Lymphedema I89.0 Active Problem Chronic bronchitis with COPD J44.9 Active (chronic obstructive pulmonary disease) Problem Hyperlipidemia, mixed E78.2 Active Problem Gastro-esophageal reflux disease K21.9 Active without esophagitis Problem Back pain M54.9 Active Problem Depression with anxiety F41.8 Active Problem Allergic rhinitis, seasonal J30.2 Active Problem Shingles B02.9 Active Medications Medication Code Code Instructions Start End Status Dosage System Date Date Klor-Con M20 [facility] 02438477526 20 MEQ Orally Inactive 2 tablet Once a day with food Potassium [facility] 03672531435 20 MEQ Orally June Active 2 tablets Chloride once weekly 2018 with food Results No Known Results Summary Purpose eClinicalWorks Submission
--- OUTSIDE RECORDS SUMMARY | 2018-12-09 12:52 | XMS REPORT | Summary of Care ---
:1960 Author Organization [facility] - Health Address [address] [place] [address] Care Team Providers Name Role Phone Perez Vera Primary Care Provider Encounter Details Date Type Department Care Team Description 11/02/2018 Orders Only [facility] Doctor Unassigned, No [address] [facility] [place] [address] [address] [place] [address] Allergies No Known Allergiesdocumented as of this encounter (statuses as of 11/03/2018) Medications Medication Sig Dispensed Refills Start Date End Date Status albuterol 2.5 mg /3 mL Inhale 2.5 mg 0 Active (0.083 %) nebulizer every 4 (four) solution hours as needed for Wheezing or Shortness of Breath. FLUTICASONE/VILANTEROL Inhale. 0 Active (BREO ELLIPTA INHALE) traMADOL 50 mg tablet Take 50 mg by 0 Active mouth every 8 (eight) hours as needed for Pain (scale 4-6). pantoprazole 40 mg EC Take 40 mg by 0 Active tablet mouth daily. fluticasone 50 Use in each 0 Active mcg/actuation nasal nostril daily. spray MULTIVITAMIN ORAL Take by mouth 0 Active daily. losartan 50 mg tablet Take 1 tablet by 30 tablet 3 03/02/2017 Active mouth daily. furosemide (LASIX) 80 Take 1 tablet by 180 tablet 1 03/02/2017 Active mg tablet mouth every morning and evening. ALPRAZolam 0.25 mg Take 0.25 mg by 0 Active tablet mouth 2 (two) times daily. carvedilol 3.125 mg Take 3.125 mg by 0 Active tablet mouth 2 (two) times daily with meals. spironolactone 25 mg/5 Take by mouth 2 0 Active mL oral suspension (two) times daily. metOLazone 2.5 mg Take 1 tablet by 10 tablet 1 01/25/2018 Active tablet mouth every Thursday. KCL 20 mEq tablet Take 2 tablets by 20 tablet 3 01/25/2018 Active mouth every Thursday. documented as of this encounter (statuses as of 11/03/2018) Active Problems Problem Noted Date Acute on chronic diastolic congestive heart failure 12/15/2016 POLI (obstructive sleep apnea) 12/15/2016 Essential hypertension 12/15/2016 Respiratory distress 12/14/2016 Morbid obesity with body mass index of 50 or higher 12/14/2016 Acute respiratory failure 12/14/2016 documented as of this encounter (statuses as of 11/03/2018) Immunizations Name Administration Dates Next Due Td 05/20/2017 documented as of this encounter Social History Tobacco Use Types Packs/Day Years Used Date Former Smoker Cigarettes 0.1 10 Smokeless Tobacco: Never Used Alcohol Use Drinks/Week oz/Week Comments No social drinker Sex Assigned at Date Recorded Not on file Job Start Date Occupation Industry Not on file Not on file Not on file Travel History Travel Start Travel End No recent travel history available. documented as of this encounter Last Filed Vital Signs Not on filedocumented in this encounter Plan of Treatment Health Maintenance Due Date Last Done Comments HEPATITIS C (HCV) SCREEN 1960 PNEUMOCOCCAL 0-64 YEARS COMBINED SERIES (1 of 1 - 1968 PPSV23) PAP SMEAR 12/22/1983 MAMMOGRAM 2002 COLONOSCOPY 2012 Zoster Recombinant Vaccine (SHINGRIX) (1 of 2) 2012 DTaP,Tdap,and Td Vaccines (1 - Tdap) 05/21/2017 05/20/2017 LUNG CANCER SCREEN: Recommended for age 55-80 with 30 2017 + pack year history INFLUENZA VACCINE 12/05/2018 documented as of this encounter Procedures Procedure Name Priority Date/Time Associated Diagnosis Comments MEDICATION CORRESPONDENCE Routine 11/02/2018 12:01 AM CDT documented in this encounter Results Not on filedocumented in this encounter Insurance Payer Benefit Plan Subscriber ID Effective Phone Address Type / Group Dates [employer] - [employer] [id number] 2016-[employer] [address] Medicare Adv [place]NA[place] MEDICARE [place] [id number] [place] [address] [employer] [id number] 2018-[facility] Medicare Adv spring ent HMO documented as of this encounter
--- OUTSIDE RECORDS SUMMARY | 2018-12-09 12:52 | XMS REPORT ---
:1960 Author Organization eClinicalWorks Care Team Providers Name Role Phone Vera Perez Provider Role Unavailable Allergies, Adverse Reactions, Alerts Substance Reaction Event Type N.K.D.A. 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 disorder without prior episode Problem Chronic respiratory failure, J96.10 Active unspecified whether with hypoxia or hypercapnia Assessment Generalized anxiety disorder F41.1 Active Assessment Stressful life events affecting Z63.79 Active family and household Problem Generalized anxiety disorder F41.1 Active Problem [...] End Status Dosage System Date Date Alprazolam ND 57528838026 0.25 MG Orally Active 1 tablet Once a day PRN as needed SEVERE ANXIETY for anxiety HydrOXYzine ND 16668736648 25 MG Orally Active 1 capsule Pamoate every 8 hrs as needed Tramadol HCl ND 78762466098 50 MG Orally Active take 1 tab Once a day as needed SEVERE PAIN Breo Ellipta ND 71256242751 100-25 MCG/INH Feb 07, Active 1 puff Inhalation Once 2019 day Spironolactone ND 62161609475 25MG Orally Active 1 tablet Twice a day with food Sildenafil [facility] 80440052605 20 MG Orally Active 1 tablet Citrate Three times a day Fluticasone [facility] 64567941444 50 MCG/ACT Active 1 spray in Propionate Nasally Once a each day nostril as needed Citalopram [facility] 14113694257 40 MG Orally Active 1 tablet Hydrobromide Once a day Aspir-81 [facility] 05860034177 81 MG Orally Active 1 tablet Once a day Citalopram [facility] 51224913653 40 MG Orally Active 1 tablet Hydrobromide Once a day Metolazone [facility] 73212647395 2.5 MG Orally Active 1 tablet Once a day Spiriva [facility] 36724697713 18 MCG Active 1 capsule HandiHaler Inhalation Once a day Klor-Con M20 [facility] 82983236018 20 MEQ Orally Active 2 tablet Once a day with food Vitamin C [facility] 86777920516 500 MG Orally Active 1 tablet Once a day Acetaminophen [facility] 29531746989 500 MG Orally Active 1 tablet every 6 hrs as needed for mild pain Vitamin B12 [facility] 38164802424 1000 MCG Orally Active 1 tablet Once a day Carvedilol [facility] 88072507299 3.125 MG Orally Active as BID directed Albuterol Sulfate [facility] 66979605721 (2.5 MG/3ML) Active 3 ml as 0.083% needed Inhalation every 8 hrs Incruse Ellipta [facility] 66196861227 62.5 MCG/INH Active 1 puff Inhalation Once a day Carvedilol [facility] 74280379903 3.125 MG Orally Active as BID directed Pantoprazole [facility] 08721531342 40 MG Orally Active 1 tablet Sodium Once a day Ventolin HFA [facility] 43339084461 108 (90 Base) Active 2 puffs as MCG/ACT needed Inhalation every 6 hrs Results No Known Results Summary Purpose eClinicalWorks Submission
--- OUTSIDE RECORDS SUMMARY | 2018-12-09 12:52 | XMS REPORT ---
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
[2018-12-09] MEDS ORDERED: HYDROCODONE/APAP 7.5/325 MG TAB ONE (14:47)
[2018-12-09] MEDS ORDERED: TRAMADOL HCL 50 MG TAB ONE (14:53)
--- NOTE | 2018-12-09 15:26 | RAD REPORT ---
EXAM DESCRIPTION: RAD - Knee Right 3 View - 12/09/2018 2:40 pm CLINICAL HISTORY: PAIN COMPARISON: No comparisons FINDINGS: No fracture or dislocation. No joint effusion evident.
--- NOTE | 2018-12-09 15:27 | RAD REPORT ---
EXAM DESCRIPTION: RAD - Hip Right 2 View - 12/09/2018 2:40 pm CLINICAL HISTORY: PAIN COMPARISON: No comparisons FINDINGS: Mild arthritic changes are present right hip. No fracture, dislocation or AVN pattern.
--- NOTE | 2018-12-09 15:59 | RAD REPORT ---
EXAM DESCRIPTION: US - Extremity Venous Uni Ltd - 12/09/2018 2:25 pm CLINICAL HISTORY: PAIN Leg swelling and edema. COMPARISON: <Comparisons> FINDINGS: Right lower extremity venous system was interrogated with Doppler technique. Normal flow, compressibility and augmentation was noted. There is no DVT present. IMPRESSION: No evidence of right lower extremity deep venous thrombosis.
--- NOTE | 2018-12-09 16:04 | EDPHYS ---
Physician Documentation [facility] Name: Gaye Castro Age: 57 yrs Sex: Female : 1960 Arrival Date: 12/09/2018 Time: 13:02 Bed 20 Private MD: ED Physician Kareem Davenport HPI: 12/09 14:15 This 57 yrs old Female presents to ER via Wheelchair with complaints of Knee cp Pain, Foot Pain. 14:15 The patient presents with pain, that is acute. The complaints affect the right hip and cp right knee and right foot. Onset: The symptoms/episode began/occurred 2 week(s) ago. 14:15 Context: resulted from an unknown cause, the patient is not able to bear weight, must cp have assistance. Associated signs and symptoms: Pertinent positives: swelling, Pertinent negatives fever, warmth, weakness. 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 ch Historical: - Allergies: 13:23 Ibuprofen; triggers GI bleeding; ch - Home Meds: 13:23 albuterol sulfate 2.5 mg/0.5 mL Inhl nebu 0.5 mL 4 times per day [Active]; alprazolam ch 0.25 mg Oral tab 1 tab once a day [Active]; Breo Ellipta inhalation 1 puff once daily [Active]; carvedilol 3.125 mg Oral tab 1 tab 2 times per day [Active]; citalopram 40 mg tab 1 tab once daily [Active]; Klor-Con M20 20 mEq Oral TbTQ 1 tab [Active]; Lasix 80 mg Oral tab 1 tab 2 times per day [Active]; pantoprazole 40 mg Oral TbEC 1 tab once daily [Active]; spironolactone 25 mg Oral tab 1 tab 2 times per day [Active]; - PMHx: 13:23 Anxiety; CHF; COPD; Depression; Hypertension; hypoxia; lymphedema; Pneumonia; Sleep ch Apnea; small heart and lungs; uses home o2; pulmonary hypertension; - PSHx: 13:23 None; ch - Immunization history:: Adult Immunizations up to date. - Social history:: Smoking status: Patient/guardian denies using tobacco, Patient/guardian denies using alcohol, street drugs. - Ebola Screening: : Patient negative for fever greater than or equal to 101.5 degrees Fahrenheit, and additional compatible Ebola Virus Disease symptoms Patient denies exposure to infectious person Patient denies travel to an Ebola-affected area in the 21 days before illness onset No symptoms or risks identified at this time. ROS: 14:25 Constitutional: Negative for body aches, chills, fever, poor PO intake. cp 14:25 Eyes: Negative for injury, pain, redness, and discharge. cp 14:25 Cardiovascular: Negative for chest pain, palpitations. 14:25 Respiratory: Negative for cough, shortness of breath, wheezing. 14:25 Abdomen/GI: Negative for abdominal pain, nausea, vomiting, and diarrhea. 14:25 MS/extremity: Positive for pain, of the right hip and right knee, Negative for injury or acute deformity, paresthesias. 14:25 Skin: Negative for cellulitis, rash. 14:25 Neuro: Negative for altered mental status, headache, weakness. 14:25 All other systems are negative. Exam: 14:30 Constitutional: The patient appears in no acute distress, alert, awake, cp non-diaphoretic, non-toxic, well developed, well nourished, morbid obesity 14:30 Head/Face: Normocephalic, atraumatic. cp 14:30 Chest/axilla: Inspection: normal. 14:30 Cardiovascular: Rate: normal. 14:30 Respiratory: the patient does not display signs of respiratory distress, Respirations: normal, no use of accessory muscles, no retractions. 14:30 Abdomen/GI: Inspection: obese 14:30 Musculoskeletal/extremity: Extremities: grossly normal except: noted in the right hip and right knee: pain, tenderness, Perfusion: the extremity is normally perfused throughout, Sensation intact. DVT Exam: no erythema, no increased warmth, swelling, of the right leg, of the left leg, tenderness, of the right leg. 14:30 Skin: cellulitis, is not appreciated, no rash present. Vital Signs: 13:23 BP 120 / 73; Pulse 69; Resp 14; Temp 98.7(O); Pulse Ox 96% on R/A; Weight 136.08 kg; ch Height 5 ft. 0 in. (152.40 cm); Pain 10/10; 15:00 BP 124 / 76; Pulse 66; Resp 15; Pulse Ox 96% on 2 lpm NC; hb 16:15 BP 116 / 70; Pulse 64; Resp 16; Pulse Ox 97% on 2 lpm NC; hb 13:23 Body Mass Index 58.59 (136.08 kg, 152.40 cm) ch MDM: 14:14 Patient medically screened. cp 14:30 Differential diagnosis: fracture, DVT, cellulitis. cp 16:02 Data reviewed: vital signs, nurses notes, radiologic studies, plain films, and as a cp result, I will discharge patient. 16:02 Test interpretation: by ED physician or midlevel provider: plain radiologic studies. cp Counseling: I had a detailed discussion with the patient and/or guardian regarding: the historical points, exam findings, and any diagnostic results supporting the discharge/admit diagnosis, radiology results, the need for outpatient follow up, a orthopedic surgeon, to return to the emergency department if symptoms worsen or persist or if there are any questions or concerns that arise at home. Response to treatment: the patient's symptoms have mildly improved after treatment. ED course: VSS. Xrays of right hip negative for fracture and xrays of right knee negative for fracture. 12/09 14:13 Order name: US Extremity Venous Unilateral Ltd; Complete Time: 16:21 cp 12/09 16:22 Interpretation: Report reviewed. cp 12/09 14:13 Order name: XRAY Hip RIGHT 2 view; Complete Time: 16:21 cp 12/09 14:13 Order name: XRAY Knee RIGHT 3 view; Complete Time: 16:21 cp 12/09 15:41 Order name: Misc. Order: walker for ambulating; Complete Time: 16:01 cp Administered Medications: 14:58 Drug: traMADol 100 mg {Note: RASS 0.} Route: PO; hb 14:59 Not Given (Patient Refused): Hydrocodone-Acetaminophen (7.5 mg-325 mg) 2 tabs PO once; hb RASS on ADMIN: Combtv4, Very Agttd3, Agttd2, Rstlss1, AlertClm0, Drwsy-1, Lt Sdtn-2, Mod Sdtn-3, Dp Sdtn-4, UnArsble-5 Disposition: 12/09/18 16:03 Discharged to Home. Impression: Pain in right hip, Pain in right knee. - Condition is Stable. - Discharge Instructions: Knee Pain, Hip Pain. - Prescriptions for Tramadol 50 mg Oral Tablet - take 1 tablet by ORAL route every 8 hours as needed; 20 tablet. - SBAR form, Medication Reconciliation Form, Thank You Letter, Antibiotic Education, Prescription Opioid Use form. - Follow up: Sourav Gipson MD; When: 2 - 3 days; Reason: Recheck today's complaints. - Problem is new. - Symptoms have improved. Addendum: 12/11/2018 07:00 Co-signature as Attending Physician, Kareem Davenport MD. r n Signatures: Dispatcher [employer] Afua Coleman, RN RN Kareem Davenport MD MD rn Mariano Kearney PA PA cp Lillian Nielsen, RN RN Corrections: (The following items were deleted from the chart) 12/09 16:44 16:03 12/09/2018 16:03 Discharged to Home. Impression: Pain in right hip; Pain in right hb knee. Condition is Stable. Forms are SBAR form, Medication Reconciliation Form, Thank You Letter, Antibiotic Education, Prescription Opioid Use. Follow up: Sourav Gipson; When: 2 - 3 days; Reason: Recheck today's complaints. Problem is new. Symptoms have improved. cp
--- NOTE | 2018-12-09 16:04 | ER ---
Nurse's Notes [facility] Name: Gaye Castro Age: 57 yrs Sex: Female : 1960 Arrival Date: 12/09/2018 Time: 13:02 Bed 20 Private MD: Diagnosis: Pain in right hip;Pain in right knee Presentation: 12/09 13:21 Presenting complaint: Patient states: pain to R foot/leg for the past two weeks, and I ch think I have a spider bite on my L thigh. its getting more red. Transition of care: patient was not received from another setting of care. Onset of symptoms was November 23, 2018. Risk Assessment: Do you want to hurt yourself or someone else? Patient reports no desire to harm self or others. Initial Sepsis Screen: Does the patient meet any 2 criteria? No. Patient's initial sepsis screen is negative. Does the patient have a suspected source of infection? No. Patient's initial sepsis screen is negative. Care prior to arrival: None. 13:21 Method Of Arrival: Wheelchair ch 13:21 Acuity: DEBBY 4 ch Triage Assessment: 13:23 General: Appears in no apparent distress. comfortable, Behavior is calm, cooperative, ch appropriate for age. Pain: Complains of pain in right foot, right leg and medial aspect of left thigh. 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 - Post-menopause Historical: - Allergies: 13:23 Ibuprofen; triggers GI bleeding; ch - Home Meds: 13:23 albuterol sulfate 2.5 mg/0.5 mL Inhl nebu 0.5 mL 4 times per day [Active]; alprazolam ch 0.25 mg Oral tab 1 tab once a day [Active]; Breo Ellipta inhalation 1 puff once daily [Active]; carvedilol 3.125 mg Oral tab 1 tab 2 times per day [Active]; citalopram 40 mg tab 1 tab once daily [Active]; Klor-Con M20 20 mEq Oral TbTQ 1 tab [Active]; Lasix 80 mg Oral tab 1 tab 2 times per day [Active]; pantoprazole 40 mg Oral TbEC 1 tab once daily [Active]; spironolactone 25 mg Oral tab 1 tab 2 times per day [Active]; - PMHx: 13:23 Anxiety; CHF; COPD; Depression; Hypertension; hypoxia; lymphedema; Pneumonia; Sleep ch Apnea; small heart and lungs; uses home o2; pulmonary hypertension; - PSHx: 13:23 None; ch - Immunization history:: Adult Immunizations up to date. - Social history:: Smoking status: Patient/guardian denies using tobacco, Patient/guardian denies using alcohol, street drugs. - Ebola Screening: : Patient negative for fever greater than or equal to 101.5 degrees Fahrenheit, and additional compatible Ebola Virus Disease symptoms Patient denies exposure to infectious person Patient denies travel to an Ebola-affected area in the 21 days before illness onset No symptoms or risks identified at this time. Screenin:07 Abuse screen: Denies threats or abuse. Denies injuries from another. Nutritional hb screening: No deficits noted. Tuberculosis screening: No symptoms or risk factors identified. Fall Risk None identified. Assessment: 14:00 General: Appears in no apparent distress. Behavior is calm, cooperative. Pain: Pain hb currently is 8 out of 10 on a pain scale. Neuro: Level of Consciousness is awake, alert, obeys commands, Oriented to person, place, time, situation. Cardiovascular: Capillary refill < 3 seconds Patient's skin is warm and dry. Respiratory: Airway is patent Respiratory effort is even, unlabored, Respiratory pattern is regular, symmetrical. GI: No signs and/or symptoms were reported involving the gastrointestinal system. : No signs and/or symptoms were reported regarding the genitourinary system. EENT: No signs and/or symptoms were reported regarding the EENT system. Derm: Skin is pink, warm \T\ dry. Musculoskeletal: Reports RIGHT KNEE PAIN. 15:00 Reassessment: Patient appears in no apparent distress at this time. Patient and/or hb family updated on plan of care and expected duration. Pain level reassessed. Patient is alert, oriented x 3, equal unlabored respirations, skin warm/dry/pink. 16:00 Reassessment: Patient appears in no apparent distress at this time. No changes from hb previously documented assessment. Patient and/or family updated on plan of care and expected duration. Pain level reassessed. Patient is alert, oriented x 3, equal unlabored respirations, skin warm/dry/pink. 16:15 Reassessment: DISCHARGE ORDERED, AWAITING TRANSPORTATION AT THIS TIME. hb Vital Signs: 13:23 BP 120 / 73; Pulse 69; Resp 14; Temp 98.7(O); Pulse Ox 96% on R/A; Weight 136.08 kg; ch Height 5 ft. 0 in. (152.40 cm); Pain 10/10; 15:00 BP 124 / 76; Pulse 66; Resp 15; Pulse Ox 96% on 2 lpm NC; hb 16:15 BP 116 / 70; Pulse 64; Resp 16; Pulse Ox 97% on 2 lpm NC; hb 13:23 Body Mass Index 58.59 (136.08 kg, 152.40 cm) ED Course: 13:02 Patient arrived in ED. as 13:21 Triage completed. ch 13:23 Arm band placed on right wrist. Patient placed. ch 14:01 Lillian Nielsen, MARIANNE is Primary Nurse. hb 14:06 Mariano Kearney PA is PHCP. cp 14:06 Kareem Davenport MD is Attending Physician. cp 14:07 Patient has correct armband on for positive identification. Bed in low position. Call hb light in reach. Side rails up X 1. 14:26 US Extremity Venous Unilateral Ltd In Process Unspecified. EDMS 14:42 XRAY Hip RIGHT 2 view In Process Unspecified. EDMS 14:43 XRAY Knee RIGHT 3 view In Process Unspecified. EDMS 15:41 Ultrasound completed. hr 16:02 Sourav Gipson MD is Referral Physician. cp 16:30 No provider procedures requiring assistance completed. Patient did not have IV access hb during this emergency room visit. Administered Medications: 14:58 Drug: traMADol 100 mg {Note: RASS 0.} Route: PO; hb 14:59 Not Given (Patient Refused): Hydrocodone-Acetaminophen (7.5 mg-325 mg) 2 tabs PO once; hb RASS on ADMIN: Combtv4, Very Agttd3, Agttd2, Rstlss1, AlertClm0, Drwsy-1, Lt Sdtn-2, Mod Sdtn-3, Dp Sdtn-4, UnArsble-5 Outcome: 16:03 Discharge ordered by . cp 16:30 Discharged to home via wheelchair, with family. hb 16:30 Condition: stable 16:30 Discharge instructions given to patient, Instructed on discharge instructions, follow up and referral plans. medication usage, Demonstrated understanding of instructions, follow-up care, medications, Prescriptions given X 2. 16:44 Patient left the ED. hb Signatures: Dispatcher [employer] EDAfua Santiago, RN RN Megan Dunlap Amelia as Page, Corey, PA PA cp Baxter, Heather, RN RN hb
[2018-12-09 17:30] VITALS: BP 120/73; TEMP 98.7; O2SAT 96
== END 2018-12-09 16:44 | disposition home or self-care (01) ==
LOC: ER 12:46
DX: M25.551 Pain in right hip (principal); M25.561 Pain in right knee; I10 Essential (primary) hypertension; F32.9 Major depressive disorder, single episode, unspecified; F41.9 Anxiety disorder, unspecified; I50.9 Heart failure, unspecified; J44.9 Chronic obstructive pulmonary disease, unspecified; Z88.6 Allergy status to analgesic agent; Z99.81 Dependence on supplemental oxygen
CPT/HCPCS: 93971; 99283

== ENCOUNTER 2019-09-10 11:28 | Emergency (ER) | payer OTHER ==
--- OUTSIDE RECORDS SUMMARY | 2019-09-10 11:31 | XMS REPORT | Clinical Summary ---
:1960 Author Organization [place] [facility] Address [address] [place] [address] Care Team Providers Name Role Phone Asked, Pcp Primary Care Provider Unavailable Allergies Active Allergy Reactions Severity Noted Date Comments Hydrocodone 12/09/2018 Patient reports blacking out after taking. Ibuprofen Other (See Comments) 07/26/2018 Patient reports a history of stomach ulcers. Medications Medication Sig Dispensed Refills Start End Date Status Date furosemide (LASIX) Take 80 mg by 0 Active 80 mg tablet mouth 2 (two) times a day. ALPRAZolam (XANAX) Take 0.25 mg by 0 Active 0.25 MG tablet mouth nightly as needed for anxiety (severe anxiety). pantoprazole Take 40 mg by 0 Act shabbir (PROTONIX) 40 MG mouth daily. EC tablet cyanocobalamin Take 1,000 mcg 0 Active 1000 MCG tablet by mouth daily. ascorbic acid, Take 500 mg by 0 Active vitamin C, mouth daily. (VITAMIN C) 500 MG tablet carvedilol (COREG) Take 3.125 mg by 0 Active 3.125 MG tablet mouth 2 (two) times a day with meals. spironolactone Take 25 mg by 0 A ctive (ALDACTONE) 25 MG mouth 2 (two) tablet times a day. citalopram Take 40 mg by 0 Activ e (CeleXA) 40 MG mouth daily. tablet metOLazone Take 2.5 mg by 0 Acti ve (ZAROXOLYN) 2.5 MG mouth once a tablet week. Thursday fluticasone Inhale 1 0 Active furoate-vilanterol inhalations (BREO ELLIPTA) daily. 100-25 mcg/dose blister with device powder for inhalation albuterol Take 2.5 mg by 0 Activ e (ACCUNEB) 2.5 mg nebulization /3 mL (0.083 %) every 4 (four) nebulizer solution hours. fluticasone 2 sprays by Each 0 A ctive propionate Nare route as (FLONASE) 50 needed for mcg/actuation rhinitis. nasal spray acetaminophen Take 650 mg by 0 A ctive (ARTHRITIS PAIN mouth every 8 RELIEF, ACETAM,) (eight) hours as 650 MG 8 hr tablet needed for mild pain. sildenafil, for Take 20 mg by 0 Active pulmonary mouth 3 (three) hypertersion, times a day. (REVATIO) 20 mg tablet potassium chloride Take 20 mEq by 0 Active 20 mEq tablet mouth once a extended release week. Thursday traMADol (ULTRAM) Take 50 mg by 0 12/11/19 Discontinued 50 mg tablet mouth daily as 19 needed for severe pain. potassium chloride Take 20 mEq by 0 Discontinued (K-DUR,KLOR-CON) mouth once a 19 (Med List 10 MEQ CR tablet week. Thursday Cleanup) acetaminophen Take 1,000 mg by 0 12/11/19 Discontinued (TYLENOL) 500 MG mouth every 6 19 (Med List tablet (six) hours as Clean up) needed for mild pain. hydrOXYzine Take 25 mg by 0 12/11/19 Disc ontinued (ATARAX) 25 MG mouth every 8 19 tablet (eight) hours as needed for itching. umeclidinium Inhale 62.5 mcg 0 12/11/19 D iscontinued (INCRUSE ELLIPTA) daily. 19 62.5 mcg/actuation blister with device Active Problems Problem Noted Date COPD exacerbation 07/26/2018 CHF (congestive heart failure) 09/22/2016 Chronic obstructive pulmonary disease with acute exace rbation 09/22/2016 Lymphedema 09/22/2016 Essential hypertension 09/22/2016 Encounters Date Type Specialty Care Team Description 12/20/2018 Patient Outreach Quality Francisca Corcoran RN 12/09/2018 - Hospital Encounter General Internal Tu, Yen-Te Lymph edema (Primary Dx); 12/16/2018 Medicine MD Chris Hypervolemia, unspecified hypervolemia t ype; Urbano, Acute on chroni c diastolic congestive heart failure (HCC); MD Zofia Chronic obstruc tive pulmonary disease with acute exacerbation (HCC); Essential hyper tension; COPD exacerbati on (HCC) after 09/09/2018 Immunizations Name Administration Dates Next Due FLUCELVAX QUAD PF 12/14/2018 Social History Tobacco Use Types Packs/Day Years [...] six or more drinks on one occasion? No t asked Sex Assigned at Date Recorded Not on file Job Start Date Occupation Industry Not on file Not on file Not on file Travel History Travel Start Travel End No recent travel history available. Last Filed Vital Signs Vital Sign Reading Time Taken Comments Blood Pressure 126/70 12/16/2018 12:02 PM CDT Pulse 70 12/16/2018 12:02 PM CDT Temperature 36.1 C (96.9 F) 12/16/2018 12:02 PM CDT Respiratory Rate 18 12/16/2018 12:02 PM CDT Oxygen Saturation 95% 12/16/2018 12:02 PM CDT Inhaled Oxygen Concentration - - Weight 129 kg (285 lb) 12/16/2018 7:00 AM CDT Height 152.4 cm (5') 12/09/2018 8:01 PM CDT Body Mass Index 55.66 12/09/2018 8:01 PM CDT Plan of Treatment Health Maintenance Due Date Last Done Comments CERVICAL CANCER SCREENING 12/22/1983 BREAST CANCER SCREENING 2012 COLONOSCOPY SCREENING 2012 SHINGLES VACCINES (#1) 2012 INFLUENZA VACCINE 11/05/2019 12/14/2018 Procedures Procedure Name Priority Date/Time Associated Comments Diagnosis ESTIMATED GFR Routine 12/16/2018 4:00 Results fo r this AM CDT procedure are i n the results section. BASIC METABOLIC PANEL Routine 12/16/2018 4:00 Re sults for this AM CDT procedure are i n the results section. POC GLUCOSE Routine 12/14/2018 8:02 Results for this AM CDT procedure are i n the results section. NM LUNG VENTILATION Routine 12/13/2018 2:15 Resu lts for this PERFUSION PM CDT procedure are i n the results section. POC GLUCOSE Routine 12/12/2018 5:00 Results for this PM CDT procedure are i n the results section. US DUPLEX VENOUS LOWER Routine 12/12/2018 3:14 R esults for this EXTREMITY BILATERAL PM CDT procedur e are in the results section. POC GLUCOSE Routine 12/12/2018 12:20 Results for this PM CDT procedure are i n the results section. CT CHEST WO CONTRAST Routine 12/12/2018 9:12 Res ults for this AM CDT procedure are i n the results section. POC GLUCOSE Routine 12/12/2018 8:29 Results for this AM CDT procedure are i n the results section. POC GLUCOSE Routine 12/11/2018 6:00 Results for this PM CDT procedure are i n the results section. TTE COMPLETE, WO Routine 12/11/2018 11:45 Results for this CONTRAST, W DOPPLER AM CDT procedur e are in (02699) the results section. ECG 12-LEAD STAT 12/10/2018 8:51 Results for this AM CDT procedure are i n the results section. ESTIMATED GFR Routine 12/09/2018 11:10 Results fo r this PM CDT procedure are i n the results section. B NATRIURETIC PEPTIDE Routine 12/09/2018 11:10 Re sults for this PM CDT procedure are i n the results section. TROPONIN Routine 12/09/2018 11:10 Results for this PM CDT procedure are i n the results section. COMPREHENSIVE METABOLIC Routine 12/09/2018 11:10 Results for this PANEL PM CDT procedure are i n the results section. PARTIAL THROMBOPLASTIN Routine 12/09/2018 11:10 R esults for this TIME (PTT) PM CDT procedure are i n the results section. PROTHROMBIN TIME WITH Routine 12/09/2018 11:10 Re sults for this INR PM CDT procedure are i n the results section. HC COMPLETE BLD COUNT Routine 12/09/2018 11:10 Re sults for this W/AUTO DIFF PM CDT procedure are i n the results section. XR CHEST 1 VW PORTABLE STAT 12/09/2018 10:57 R esults for this PM CDT procedure are i n the results section. ECG ED PRELIMINARY Routine 12/09/2018 10:19 Resul ts for this INTERPRETATION PM CDT procedure are in the results section. after 09/09/2018 Results Estimated GFR (12/16/2018 4:00 AM CDT)Only the most recent of2 resultswithin the time period is included. Estimated GFR >=90 mL/min/1.73 [facility] Comment: m2 HOSPITAL Catergory Units Interpretation G1 >=90 Normal or high G2 60-89 Mildly decreased G3a 45-59 Mildly to moderately decreas ed G3b 30-44 Moderately to severely decre ased G4 15-29 Severely decreased G5 <15 Kidney failure The eGFR was calculated using the Chronic Kidney Disea se Epidemiology Collaboration (CKD-EPI) equation. Interpretation is based on recommendations of the National Kidney Foundation-Kidney Disease Outcomes Khurram lity Initiative (NKF-KDOQI) published in 2014. Specimen Plasma specimen Performing Organization Address City/[facility] Phone Number [facility] DEPARTMENT OF PATHOLOGY AND [address] [place], [place] [address] [address] [place] [phone] Basic metabolic panel (12/16/2018 4:00 AM CDT) Pathologist Sig nature Sodium 137 135 - 148 mEq/L [facility] L Potassium 4.3 3.5 - 5.0 mEq/L [facility] Chloride 95 (L) 98 - 112 mEq/L [facility] CO2 31 24 - 31 mEq/L [facility] Anion gap 11@ANIO 7 - 15 mEq/L [facility] BUN 22 (H) 6 - 20 mg/dL [facility] Creatinine 0.72 0.50 - 0.90 mg/dL [facility] Glucose 111 (H) 65 - 99 mg/dL [facility] Calcium 9.3 8.3 - 10.2 mg/dL [facility] Specimen Plasma specimen Performing Organization Address [facility] Phone Number [facility] DEPARTMENT OF PATHOLOGY AND [address] [place], [place] [address] [address] [address] POC glucose (12/14/2018 8:02 AM CDT)Only the most recent of5 resultswithin the time period is included. Pathologist Sig nature POC glucose 130 (H) 65 - 99 mg/dL [facility] Comment: [facility] Notified RN Meter ID: [id number] Boom Tender: Celine Lee Specimen Performing Organization Address City/[facility] Phone Number [facility] DEPARTMENT OF PATHOLOGY AND [address] [place] [address] [phone] [address] NM Lung Ventilation Perfusion (12/13/2018 2:15 PM CDT) Specimen Narrative Performed At PROCEDURE: [place] LUNG VENTILATION PERFUSI ON [facility] INDICATION: Pulmonary hypertension lalita pected. COMPARISON: Chest CT 12/12/2018. TECHNIQUE: Planar ventilation images were acquired a fter the inhalation of 15 mCi of Xe-133 gas. Planar perfusion i mages were acquired after the IV administration of 5 mCi of Tc-99m MAA. FINDINGS: Ventilation images demonstrate decreased v entilation to the lung periphery and lung bases. Washout images demon strate no significant gas trapping. Perfusion images demonstra te decreased perfusion to the lung periphery and lung bases, matching the ventilation images. Overall perfusion i s better than ventilation. No mismatched defects. IMPRESSION: 1. Low probability for PE. 2. No evidence for significant chronic PE. [facility]-[id number] Procedure Note Interface, Radiology Results Incoming - 12/13/2018 2:39 PM CDT PROCEDURE: NM LUNG VENTILATION PERFUSION INDICATION: Pulmonary hypertension susp ected. COMPARISON: Chest CT 12/12/2018. TECHNIQUE: Planar ventilation images we re acquired after the inhalation of 15 mCi of Xe-133 gas. Planar perfusion images were acquired after the IV administration of 5 mCi of Tc-99m MAA. FINDINGS: Ventilation images demonstrat e decreased ventilation to the lung periphery and lung bases. Washout images demonstrate no significant gas trapping. Perfusion images demonstrate decreased perfusion to the lung periphery and lung bases, matching the ventilation images. Overal l perfusion is better than ventilation. No mismatched defects. IMPRESSION: 1. Low probability for PE. 2. No evidence for significant chronic PE. [facility]-[id number] Performing Organization Address City/State/Zipcode Phone Number [facility] [address] duplex venous lower extremity (12/12/2018 3:14 PM CDT) Specimen Narrative Performed At [facility] Lower Extr emity Venous Report [address] [facility], [facility] [address], [place] [address] Pat.Name: GAYE LUA Pat.ID: [id number]Date: 12/12/2018 Refer.MD: ZOFIA MCKINNEY MD Exam Time: 2:51:00 PM Study Type:L E Venous Height: 60in Weight: 279lb BSA: 2.15 m2 Ag e: 1960,57Y Sex: FEMALE Sonogrp hr: Melodie Moran, RVT Pat. Stat.:Inpatient Room: [address] Tape Vol: LN, [facility] - 4: [id number] Echo Event ID:[id number] Order ID: [id number] Reason for Study:Leg swelling and pain. History CHF, COPD, HTN, lymphedema. Procedures:Colorflow, Grayscale/2D, Puls ed wave Doppler Race: C SUMMARY: DUPLEX SCAN OBSERVATIONS Deep Veins Superficial Veins Right Left Right Left EIV GSV (prox) Normal Normal CFV Normal Normal (above knee) Femoral Normal Normal GSV (dist) Normal Normal Profunda Normal Normal (below knee) Popliteal Normal Normal PT (prox) Normal Not visualized SSV N ormal Normal PT (dist) Normal Normal Peroneal Not Visualized Not Visualized Gastrocs Normal Normal RIGHT: There is normal compressibilit y with no evidence of echogenic material noted within the lumen of the v isualized veins. Colorflow and Doppler signals are normal. The peroneal veins are not visualized. LEFT: There is normal compressibility with no evidence of echogenic material noted within the lumen of the v isualized veins. Colorflow and Doppler signals are normal. The proximal posterior tibial and peroneal veins are not visualized. PRELIMINARY FINDINGS 1. No evidence of venous thrombosis in the visualized veins. 2. Technically difficult study due to p atient's body habitus and leg edema. PHYSICIAN INTERPRETATION Venous examination of the both lower ex tremities demonstrated no evidence of venous thrombosis in the vis ualized veins. Normal compressibility and augmentation of all veins visualized. Signed 12/12/2018 11:22 PM Guillermo Leach MD, RPVI Procedure Note Interface, Radiology Results In - 2018 11:22 PM CDT [facility] Ul[facility] Laboratory Lower Extremity Veno us Report [address] [address] , [place] [address] Pat.Name: GAYE LUA Pat.I D: [id number] St.Date: 12/12/2018 Refer .MD: ZOFIA MCKINNEY MD Exam Time: 2:51:00 PM Study Type:LE Venous Height: 60in Weigh t: 279lb BSA: 2.15 m2 Age: 11 1960,57Y Sex: FEMALE Sonog rphr: Melodie MoranHOLLY Pat. Stat.:Inpatient Room: [address] Tape Vol: LN, CPT - 4: [id number] Echo Event ID:[id number] Order ID: [id number] Reason for Study:Leg swelling and pain. History CHF, COPD, HTN, lymphedema. Procedures:Colorflow, Grayscale/2D, Puls ed wave Doppler Race: C SUMMARY: DUPLEX SCAN OBSERVATIONS Deep Veins Superficial Veins Right Left Right Left EIV GSV (prox) Normal Normal CFV Normal Normal (above knee) Femoral Normal Normal GSV (dist) Normal Normal Profunda Normal Normal (below knee) Popliteal Normal Normal PT (prox) Normal Not visualized SSV No rmal Normal PT (dist) Normal Normal Peroneal Not Visualized Not Visualized Gastrocs Normal Normal RIGHT: There is normal compressibility with no evidence of echogenic material noted within the lumen of the v isualized veins. Colorflow and Doppler signals are normal. The peroneal veins are not visualized. LEFT: There is normal compressibility with no evidence of echogenic material noted within the lumen of the v isualized veins. Colorflow and Doppler signals are normal. The proximal posterior tibial and peroneal veins are not visualized. PRELIMINARY FINDINGS 1. No evidence of venous thrombosis in the visualized veins. 2. Technically difficult study due to p atient's body habitus and leg edema. PHYSICIAN INTERPRETATION Venous examination of the both lower ex tremities demonstrated no evidence of venous thrombosis in the vis ualized veins. Normal compressibility and augmentation of all veins visualized. Signed 12/12/2018 11:22 PM Guillermo Leach MD, VI Performing Organization Address City/State/Zipcode Phone Number [facility] [address] [place] [address] CT Chest Wo Contrast (12/12/2018 9:12 AM CDT) Specimen Narrative Performed At EXAMINATION: CT CHEST WO CONTRAST [facility] CLINICAL HISTORY: Shortness of breath TECHNIQUE: Axial images of the chest were obtained w ithout intravenous contrast. The lack of intravenous contrast reduces the sensitivity of the exam and evaluating vasculature. CT imaging was pe rformed with iterative reconstruction technique and/o r automated exposure control to reduce rad iation dose. COMPARISON: July 26, 2018 FINDINGS: Lungs and airways: There is extensive linear scarring throughout both lungs. Severe mosaic attenuation of the lung parenchym a. Findings are unchanged compared to the prior examinat ion. No new airspace disease. Pleura: No pleural effusion or pneumotho rax. Mediastinum and lymph nodes: Heterogenous thyroid glan d. No suspicious lymphadenopathy. Cardiovascular: Dilated main pulmonary a rtery (3.6 cm). Upper abdomen: Left adrenal adenoma measures 3.3 cm. C alcifications near the gallbladder fundus, incompletely vis ualized. Musculoskeletal: No suspicious osseous lesions. Remote right lateral seventh rib fracture. Spondylosis. IMPRESSION: 1.No acute airspace disease. 2.Extensive linear scarring throughout b oth lungs, unchanged. 3.Severe mosaic attenuation of the lung parenchyma, co mpatible with small airways disease versus perfusional heterogeneity. 4.Unchanged dilated main pulmonary artery, which can b e seen in pulmonary hypertension. [facility]-[id number] Procedure Note Interface, Radiology Results Incoming - 12/12/2018 9:24 AM CDT EXAMINATION: CT CHEST WO CONTRAST CLINICAL HISTORY: Shortness of breath TECHNIQUE: Axial images of the chest we re obtained without intravenous contrast. The lack of intravenous contrast reduces the sensitivity of the exam and evaluating vasculature. CT imaging was performed with iterative reconstruction technique and/or automated exposure control to reduce rad iation dose. COMPARISON: July 26, 2018 FINDINGS: Lungs and airways: There is extensive li near scarring throughout both lungs. Severe mosaic attenuation of the lung parenchyma. Findings are unchanged compared to the prior examination. No new airspace disease. Pleura: No pleural effusion or pneumotho rax. Mediastinum and lymph nodes: Heterogenou s thyroid gland. No suspicious lymphadenopathy. Cardiovascular: Dilated main pulmonary a rtery (3.6 cm). Upper abdomen: Left adrenal adenoma jaime ures 3.3 cm. Calcifications near the gallbladder fundus, incompletely visualized. Musculoskeletal: No suspicious osseous l esions. Remote right lateral seventh rib fracture. Spondylosis. IMPRESSION: 1.No acute airspace disease. 2.Extensive linear scarring throughout b oth lungs, unchanged. 3.Severe mosaic attenuation of the lung parenchyma, compatible with small airways disease versus perfusional heterogeneity. 4.Unchanged dilated main pulmonary arter y, which can be seen in pulmonary hypertension. [facility]-[id number] Performing Organization Address City/State/Zipcode Phone Number [facility] [address] [facility] [place] [address] Echocardiogram complete w contrast and 3D if needed (12/11/2018 11:45 AM CDT) Specimen Narrative Performed At [facility] Echo cardiography Report [address] [facility], [address], [place] [address] Pat.Name: GAYE LUA Pat.ID: [id number]Date: 12/11/2018 Refer.MD: ZOFIA MCKINNEY MD Exam Time: 10:52:00 AM Study Type:Ro utine Echo Height: 60in Weight: 279lb BSA: 2.15 m2 Ag e: 1960,57Y Sex: FEMALE Sonogrp hr: Fanny bArams, UVALDO, RVS Pat. Stat.:Inpatient Room: [facility] Study Status:Final Echo Event ID:[id number] Order ID: [id number] Reason for Study:Pulmonary Hypertension History / Clinical:COPD, CHF, Hypertensi on Procedures:2D Echo, Colorflow Doppler, I ntravenous Definity Contrast Race: C SUMMARY: Technically difficult study despite the use of echo contrast. LV EF is normal. RV size is difficult to assess. Unable to assess RV systolic function. Unable to assess PA systolic pressure d espite use of contrast. FINDINGS: LV: LV size is normal. LV EF is normal. Overall wall motion is normal. Estimated EF is 55-59%. RV: RV size is difficult to assess. Unable to assess RV systolic function. LA: LA volume is difficult to a ssess. RA: RA volume is difficult to a ssess. AO: Aortic root diameter is nor mal. STEPHANIE: No pericardial effusion. AV: No structural AV abnormalit ies noted. MV: No structural MV abnormalit ies noted. PV: Pulmonic valve not well see n. TV: No structural TV abnormalit ies noted. Other: Unable to assess PA systolic pressure despite use of contrast. Signed 12/11/2018 05:53 PM Malathi Hutchison M.D. Procedure Note Interface, Radiology Results In - 2018 5:54 PM CDT Echocardiography Report [address] [place] [address] Pat.Name: GAYE LUA Pat.I D: [id number] .Date: 12/11/2018 Refer .MD: ZOFIA MCKINNEY MD Exam Time: 10:52:00 AM Study Type:Routine Echo Height: 60in Weigh t: 279lb BSA: 2.15 m2 Age: 11 1960,57Y Sex: FEMALE Sonog rphr: Fanny Abrams RD, RVS Pat. Stat.:Inpatient Room: [facility] Study Status:Final Echo Event ID:[id number] Order ID: [id number] Reason for Study:Pulmonary Hypertension History / Clinical:COPD, CHF, Hypertensi on Procedures:2D Echo, Colorflow Doppler, I ntravenous Definity Contrast Race: C SUMMARY: Technically difficult study despite the use of echo contrast. LV EF is normal. RV size is difficult to assess. Unable to assess RV systolic function. Unable to assess PA systolic pressure d espite use of contrast. FINDINGS: LV: LV size is normal. LV EF is no rmal. Overall wall motion is normal. Estimated EF is 55-59 %. RV: RV size is difficult to assess . Unable to assess RV systolic function. LA: LA volume is difficult to asse ss. RA: RA volume is difficult to asse ss. AO: Aortic root diameter is normal . STEPHANIE: No pericardial effusion. AV: No structural AV abnormalities noted. MV: No structural MV abnormalities noted. PV: Pulmonic valve not well seen. TV: No structural TV abnormalities noted. Other: Unable to assess PA systolic p ressure despite use of contrast. Signed 12/11/2018 05:53 PM Malathi Hutchison M.D. Performing Organization Address [facility] Phone Number [facility] [address] [place] [address] ECG 12 lead (12/10/2018 8:51 AM CDT) Pathologist Sig nature Ventricular rate 76 [facility] Atrial rate 76 [facility] AR interval 196 [facility] QRSD interval 92 [facility] QT interval 428 [facility] QTC interval 481 [facility] P axis 1 43 [facility] QRS axis 1 49 [facility] T wave axis 9 [facility] EKG impression Normal sinus rhythm-T wave a bnormality, consider anterior ischemia-Prolonged QT-Abnormal ECG-In automated comparison with ECG of 26-JUL-2018 09:49,-premature ventricular complexes are no longer present- premature atrial complexes are no longer [facility] present-Inverted T waves hav e replaced nonspecific T wave abnormality in Inferior leads-T wave inversion now evident in Lateral leads- Specimen Narrative Performed At This result has an attachment that is no t available. Performing Organization Address [facility] Phone Number [facility] [place] [address] [place] [phone] Troponin (12/09/2018 11:10 PM CDT) [facility] Troponin <0.006 0.000 - 0.040 [facility] Comment: ng/mL [facility] changed methodology eff ective: 08/10/2018 at 10:00 am The new method has a 99th percentile cutoff of 0.040 n g/mL Specimen Plasma specimen Performing Organization Address [facility] Phone Number [facility] DEPARTMENT OF PATHOLOGY AND [address] [place] [phone] Partial thromboplastin time, activated (12/09/2018 11:10 PM CDT) [facility] PTT 27.5 23.0 - 36.0 [facility] Comment: [facility] PTT therapeutic range for unfractionated heparin is 61.0-112.0 seconds which corresponds to Anti-Xa 0.3-0.7 U/ml. Specimen Blood Performing Organization Address [facility] Phone Number [facility] DEPARTMENT OF PATHOLOGY AND [address] [place] [address] [phone] [address] Prothrombin time with INR (12/09/2018 11:10 PM CDT) [facility] Prothrombin time 14.2 11.5 - 14.5 [facility] INR 1.1 [facility] Comment: [facility] The International Normalized Ratio (INR) is a therapeu [facility] HOSPITAL monitoring tool for patients who are stable on oral anticoagulant therapy. An INR of 2.0-3.0 is suggested for deep vein thrombosis/pulmonary embolism. Specimen Blood Performing Organization Address [facility] Hospitalcode Phone Number [facility] DEPARTMENT OF PATHOLOGY AND [address] [place] [address] [phone] [address] CBC with platelet and differential (12/09/2018 11:10 PM CDT) [facility] WBC 6.64 4.50 - 11.00 [facility] k/uL [facility] RBC 4.35 4.20 - 5.50 [facility] m/uL [facility] HGB 11.6 (L) 12.0 - 16.0 [facility] g/dL [facility] HCT 38.3 37.0 - 47.0 % [facility] MCV 88.0 82.0 - 100.0 [facility] MCH 26.7 (L) 27.0 - 34.0 pg [facility] MCHC 30.3 (L) 31.0 - 37.0 [facility] g/dL [facility] RDW - SD 51.9 37.0 - 55.0 fL [facility] MPV 10.2 8.8 - 13.2 fL [facility] Platelet count 279 150 - 400 k/uL [facility] Nucleated RBC 0.00 /100 WBC [facility] Neutrophils 61.8 39.0 - 69.0 % [facility] Lymphocytes 24.8 (L) 25.0 - 45.0 % [facility] Monocytes 10.8 (H) 0.0 - 10.0 % [facility] Eosinophils 2.1 0.0 - 5.0 % [facility] Basophils 0.2 0.0 - 1.0 % [facility] Immature granulocytes 0.3Comment: 0.0 - 1.0 % [facility] "[facility] granulocytes" (promyelocytes , myelocytes, metamyelocytes ) Specimen Blood Performing Organization Address City/[facility]/Zipcode Phone Number [facility] DEPARTMENT OF PATHOLOGY AND [address] [place] [phone] B natriuretic peptide (12/09/2018 11:10 PM CDT) Pathologist Sig nature BNP 9 0 - 100 pg/mL [facility] Specimen Blood Performing Organization Address City/State/Zipcode Phone Number [facility] DEPARTMENT OF PATHOLOGY AND [address] [place], [place] [address] [address] [place] [phone] Comprehensive metabolic panel (12/09/2018 11:10 PM CDT) Sodium 137 135 - 148 [facility] mEq/L [facility] Potassium 3.5 3.5 - 5.0 [facility] mEq/L [facility] Chloride 93 (L) 98 - 112 [facility] mEq/L [facility] CO2 32 (H) 24 - 31 mEq/L [facility] Anion gap 12@ANIO 7 - 15 mEq/L [facility] BUN 26 (H) 6 - 20 mg/dL [facility] Creatinine 0.81 0.50 - 0.90 [facility] mg/dL HOSPITAL Glucose 124 (H) 65 - 99 mg/dL [facility] Calcium 9.3 8.3 - 10.2 [facility] mg/dL [facility] Protein 8.6 (H) 6.3 - 8.3 [facility] Comment: g/dL [facility] 4.6-7.0 g/dL 1 week 4.4-7.6 g/dL 7 months-1year 5.1-7.3 g/dL 1-2 years 5.6-7.5 g/dL >3 years 6.0-8.0 g/dL 18-150 6.3-8.3 g/dL Albumin 3.5 3.5 - 5.0 [facility] g/dL [facility] A/G ratio 0.7 0.7 - 3.8 [facility] Alkaline phosphatase 73 35 - 104 U/L [facility] AST 23 10 - 35 U/L [facility] ALT 24 5 - 50 U/L [facility] Total bilirubin 0.9 0.0 - 1.2 [facility] mg/dL [facility] Specimen Plasma specimen Performing Organization Address City/State/Zipcode Phone Number [facility] DEPARTMENT OF PATHOLOGY AND [address] [place], [place] [phone] GENOMIC MEDICINE [address] [address] XR Chest 1 Vw Portable (12/09/2018 10:57 PM CDT) Specimen Narrative Performed At Examination: XR CHEST 1 VW PORTABLE RADIANT Clinical History: chest pain Comparison: None. Technique: Single frontal view of the est is obtained. Findings: Cardiomegaly with vascular crowding or c ongestion are noted. Mild bilateral interstitial infiltrates are noted. No pleural effusion is seen. No pneumothorax is seen. Impression: Cardiomegaly with vascular crowding or congestion and mild bilateral interstitial infiltrates. [facility]-[id number] Procedure Note Hm Interface, Radiology Results Incoming - 12/09/2018 11:03 PM CDT Examination: XR CHEST 1 VW PORTABLE Clinical History: chest pain Comparison: None. Technique: Single frontal view of the ch est is obtained. Findings: Cardiomegaly with vascular crowding or c ongestion are noted. Mild bilateral interstitial infiltrates are noted. No pleural effusion is seen. No pneumothorax is seen. Impression: Cardiomegaly with vascular crowding or c ongestion and mild bilateral interstitial infiltrates. 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 Previous ECG: Previous ECG: Unavailable Interpretation: Interpretation: abnormal Rate: ECG rate: 68 ECG rate assessment: normal Rhythm: Rhythm: sinus rhythm Ectopy: Ectopy: none QRS: QRS axis: Normal QRS intervals: Normal Conduction: Conduction: abnormal Abnormal conduction: 1st degree ST segments: ST segments: Normal T waves: T waves: inverted Inverted: V1, V2, V3, V4 and V5 after 09/09/2018 Insurance Payer Benefit Plan / Subscriber ID Effective Dates Phone Addre ss Type Group [employer] xxxxxxxx 2018-Presen O HMO MCR ADV t (Home) [place] [address] Advance Directives For more information, please contact: [phone] Type Date Recorded 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
--- OUTSIDE RECORDS SUMMARY | 2019-09-10 11:33 | XMS REPORT | Continuity of Care Document ---
:1960 Author Organization [facility] t Address [address] [place] [address] Care Team Providers Name Role Phone Asked, Pcp Primary Care Physician Unavailable Nilo LOPES Attending Clinician Unavailable Nicholas NEUMANN, Yazidi Attending Clinician Hank NEUMANN Attending Clinician Doctor Unassigned, Name Attending Clinician Unavailable HANK Admitting Clinician Unavailable Payers Payer Name Policy Type Policy Effective Expiration Source Number Date Date CIGNA xxxxxxxx 2018 [facility] [facility] ADVxxxxxxxx2018-Pr esentHMO Problems Condition Condition Condition Status Onset Resolution Last Treating Co mments Source Name Details Category Date Date Treatment Clinician Date COPD COPD Disease Active [place] exacerbati exacerbati 4-22 Me thodi on on 00:00: st 00 CHF CHF Disease Active [place] (congestiv (congestiv 6-19 Me thodi e heart e heart 00:00: st failure) failure) 00 Chronic Chronic Disease Active [place] obstructiv obstructiv 6-19 Me thodi e e 00:00: st pulmonary pulmonary 00 disease disease with acute with acute exacerbati exacerbati on on Lymphedema Lymphedema Disease Active [place] 6-19 Methodi 00:00: st 00 Essential Essential Disease Active Deidra ston hypertensi hypertensi 6-19 Me thodi on on 00:00: st 00 Chronic Chronic Problem Active [facility] bronchitis bronchitis Jennifer kes - with COPD with COPD Payam winnie (chronic (chronic l obstructiv obstructiv Ou tpati e e ent pulmonary pulmonary Clin ics disease) disease) Hyperlipid Hyperlipid Problem Active [facility] emia, emia, [facility] - mixed mixed Memoria l [facility] ent Clinics Allergic Allergic Problem Active [facility] rhinitis, rhinitis, Luke s - seasonal seasonal Memori a l [facility] ent Clinics 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 l on on [facility] ent Clinics O2 O2 Problem Active [facility] dependent dependent Luke s - Memoria l [facility] ent Clinics Back pain Back pain Diagnosis Active [facility] - Memoria l [facility] ent [facility]ics Depression Depression Problem Active [facility] with with [facility] - anxiety anxiety Memoria l [facility] ent Clinics Gastro-eso Gastro-eso Problem Active [facility] phageal phageal [facility]ukes - reflux reflux Memoria disease disease l without without [facility] esophagiti esophagiti en t s s Clinics Lymphedema Lymphedema Diagnosis Active [facility] - Mem[facility] l [facility] ent Clinics Shingles Shingles Problem Active [facility] - [facility] l [facility] ent Clinics Benign Benign Problem Active [facility] essential essential Luke s - HTN HTN Memoria l [facility] ent Clinics Chronic Chronic Problem Active [facility] diastolic diastolic Luke s - heart heart Memoria failure failure l [facility] ent Clinics DNR (do DNR (do Problem Active [facility] not not [facility] - resuscitat resuscitat Me moria e) e) l [facility] ent Clinics Adult BMI Adult BMI Diagnosis Active [facility] 50.0-59.9 50.0-59.9 Luke s - kg/sq m kg/sq m Memoria l [facility] ent Clinics Abnormal Abnormal Problem Active [facility] mammogram mammogram Luke s - Memoria l [facility] ent Clinics Morbid Morbid Diagnosis Active [facility] obesity obesity [facility] - due to due to Memoria excess excess l calories calories Outpat i ent Clinics Chronic Chronic Problem Active [facility] respirator respirator Jennifer kes - y failure, y failure, Me moria unspecifie unspecifie l d whether d whether Outp ati with with ent hypoxia or hypoxia or Cl inics hypercapni hypercapni a a Current Current Problem Active [facility] moderate moderate [facility] - episode of episode of Me moria major major l depressive depressive Ou tpati disorder disorder ent without without Clinics prior prior episode episode Generalize Generalize Problem Active [facility] d anxiety d anxiety Luke s - disorder disorder Memori a l Outpati ent Clinics Type 2 Type [address] [facility] diabetes diabetes [facility] - mellitus mellitus Memori a with other with other l specified specified Outp ati complicati complicati en t on, on, Clinics without without long-term long-term current current use of use of insulin insulin Acute pain Acute pain Problem Active [facility] of right of right [facility] - knee knee Memoria l Outpati ent Clinics Primary Primary Problem Active [facility] osteoarthr osteoarthr Jennifer kes - itis of itis of Memoria left knee left knee l Outpati ent Clinics Primary Primary Problem Active [facility] osteoarthr osteoarthr Jennifer kes - itis of itis of Memoria right knee right knee l Outpati ent Clinics Stressful Stressful Diagnosis Active [facility] life life [facility] - events events Memoria affecting affecting l family and family and Ou tpati household household ent Clinics Encounter Encounter Diagnosis Active [facility] for for [facility] - general general Memoria adult adult l medical medical Outpati examinatio examinatio en t n without n without Clin ics abnormal abnormal findings findings Encounter Encounter Diagnosis Active [facility] for for [facility] - screening screening Payam winnie mammogram mammogram l for for Outpati malignant malignant ent neoplasm neoplasm Clinic s of breast of breast Left knee Left knee Diagnosis Active [facility] pain, pain, [facility]ukes - unspecifie unspecifie Me moria d d l chronicity chronicity Ou tpati ent Clinics Allergies, Adverse Reactions, Alerts Allergy Allergy Status Severity Reaction(s) Onset Inactive Treating Comm ents Source Name Type Date Date Clinician Hydrocod Propensi Active Patient [place] on one ty to 12-09 reports Methodi adverse 00:00: blacking st reaction 00 out after s to taking. drug Ibuprofe Propensi Active Other (See Patient [place] n ty to Comments) 07-26 reports a Meth catie adverse 00:00: history st reaction 00 of s to stomach drug ulcers. ibuprofe Adverse Active triggers GI [facility] n Reaction Bleeding [facility] - Memoria l Outpati ent Clinics Hydrocod Adverse Active dizziness [facility] one-Acet Reaction [facility]ukes - aminophe Memoria n l Outpati ent Clinics Social History Social Habit Start Date Stop Date Quantity Comments Source History [facility] Meth odist Alcohol Std Drinks History [facility] Meth odist Alcohol Binge Sex Assigned At Hall M ethodist Alcohol intake 2018-12-10 2018-12-10 Current [place] Me thodist 00:00:00 00:00:00 non-drinker of alcohol (finding) History SDOH 2018-07-26 2018-07-26 1 Hall Meth odist Alcohol Frequency 00:00:00 00:00:00 Smoking Status Start Date Stop Date Source Never smoker Hall Methodis t Medications Ordered Filled Start Stop Current Ordering Indication Dosage Frequency Signature Comments Components Source Medication Medication Date Date Medication? Clinician (SIG) Name Name furosemide 2018- Yes 80mg Q.5D Take 80 mg [place] (LASIX) 80 9-12 by mouth 2 Met hodi mg tablet 16:12: (two) st 20 times a day. ALPRAZolam 2018- Yes .25mg QD Take 0.25 [place] (XANAX) 9-12 mg by Methodi 0.25 MG 16:12: mouth st tablet 20 nightly as needed for anxiety (severe anxiety). pantoprazol 2018- Yes 40mg QD Take 40 mg Hall e 9-12 by mouth Methodi (PROTONIX) 16:12: daily. st 40 MG EC 20 tablet cyanocobala Yes 1000ug QD Take 1,000 Hall min 1000 9-12 mcg by Methodi MCG tablet 16:12: mouth st 20 daily. ascorbic 2019-0 Yes 500mg QD Take 500 [place] acid, 9-12 mg by Methodi vitamin C, 16:12: mouth st (VITAMIN C) 20 daily. 500 MG tablet carvedilol 2018-0 Yes 3.125mg Q.5D Take 3.125 Hall (COREG) 9-12 mg by Methodi 3.125 MG 16:12: mouth 2 st tablet 20 (two) times a day with meals. spironolact 2019-0 Yes 25mg Q.5D Take 25 mg Hall one 9-12 by mouth 2 Methodi (ALDACTONE) 16:12: (two) st 25 MG 20 times a tablet day. citalopram 20190 Yes 40mg QD Take 40 mg [place] (CeleXA) 40 9-12 by mouth Meth catie MG tablet 16:12: daily. st 20 metOLazone 2018-0 Yes 2.5mg Q7D Take 2.5 [place] (ZAROXOLYN) 9-12 mg by Methodi 2.5 MG 16:12: mouth once st tablet 20 a week. Thursday fluticasone Yes QD Inhale 1 [place] furoate-edward 9-12 inhalation Me thodi anterol 16:12: s daily. st (BREO 20 ELLIPTA) 100-25 mcg/dose blister with device powder for inhalation albuterol Yes 2.5mg Q4H Take 2.5 Deidra ston (ACCUNEB) 9-12 mg by Methodi 2.5 mg /3 16:12: nebulizati st mL (0.083 20 on every 4 %) (four) nebulizer hours. solution fluticasone Yes 2{spray 2 sprays Hall propionate -12 } by Each Method i (FLONASE) 16:12: Nare route st 50 20 as needed mcg/actuati for on nasal rhinitis. spray acetaminoph Yes 650mg Q8H Take 650 [place] en 9-12 mg by Methodi (ARTHRITIS 16:12: mouth st PAIN 20 every 8 RELIEF, (eight) ACETAM,) hours as 650 MG 8 hr needed for tablet mild pain. sildenafil, Yes 20mg [id number] Take 20 mg Hall for 12-16 [id number] by mouth 3 Met hodi pulmonary 16:12: 3D (three) st hypertersio 20 times a n, day. (REVATIO) 20 mg tablet potassium Yes 20meq Q7D Take 20 [place] chloride 20 9-12 mEq by Method i mEq tablet 16:12: mouth once s t extended 20 a week. release Thursday potassium 2018- No 20meq Q7D Take 20 Deidra ston chloride 12-10 09-06 mEq by Methodi (K-DUR,KLOR 16:16: 00:[address] -CON) 10 01 :00 a week. MEQ CR Thursday tablet acetaminoph 2019- No 1000mg Q6H Take 1,000 Hall en 12-10 09-06 mg by Methodi (TYLENOL) 11:56: 00:[address] 500 MG 27 :00 every 6 tablet (six) hours as needed for mild pain. hydrOXYzine 2019- No 25mg Q8H Take 25 mg Hall (ATARAX) 25 9-06 09-06 by mouth Met hodi MG tablet 11:42: 00:[address] 25 :00 (eight) hours as needed for itching. heidiu 2019- No 62.5ug QD Inhale H alexander conway (INCRUSE 12-10 62.5 mcg Meth catie ELLIPTA) 11:42: 00:[address] 62.5 13 :00 mcg/actuati on blister with device traMADol 2018- No 50mg Q24H Take 50 mg [place] (ULTRAM) 50 12-10 by mouth Met hodi mg tablet 11:40: 00:[address] 15 :00 needed for severe pain. Alprazolam Alprazolam Yes Perez [address] [facility] Vera as needed [facility] - for Memoria anxiety l [facility] ent Clinics Sildenafil Sildenafil Yes Perez TAKE [address] [facility] Citrate Citrate Vera TABLET BY [place] - MOUTH Memoria THREE l TIMES [facility] DAILY ent Clinics HydrOXYzine HydrOXYzine Yes Perez [address] [facility] Pamoate Pamoate Vera as needed [place] - Memoria l [facility] ent Clinics - Aspir- Yes Perez [address] Vera [facility] - Memoria l [facility]ics Durezol Durezol Yes Perez 1 drop [facility] Vera into [facility] - affected Memoria eye l [facility] ent Clinics Ventolin Ventolin Yes Perez [address] [facility] HFA HFA Vera needed [facility] - Memoria l [facility]ics Carvedilol Carvedilol Yes Perez as [facility] Vera directed [facility] - Memoria l [facility]ics Carvedilol Carvedilol Yes Perez [address] [facility] Vera [facility] - Memoria l Outpati ent Clinics Tramadol Tramadol Yes Perez take [address] [facility] HCl HCl Vera [facility] - [facility]oria l Outpati ent Clinics Besivance Besivance Yes Perez [address] Vera into [facility] - affected Memoria eye l [facility] ent Clinics Spiriva Spiriva Yes Perez [address] HandiHaler HandiHaler Vera Jennifer kes - Memoria l [facility] ent Clinics Citalopram Citalopram Yes Perez TAKE [address] [facility] [address] Hydrobromid Hydrobromid Vera TABLET BY [facility]ukes - e e MOUTH ONCE Memoria DAILY FOR l 90 DAYS Outpati ent Clinics Acetaminoph Acetaminoph Yes Perez [address] [facility] en en Vera as needed [facility]ukes - for mild Memoria pain l Outpati ent Clinics Pantoprazol Pantoprazol Yes Perez [address] [facility] e Sodium e Sodium Vera [facility] - Memoria l Outpati ent Clinics Citalopram Citalopram Yes Perez [address] [facility] [address] Hydrobromid Hydrobromid Vera [facility] - e e Memoria l Outpati ent Clinics Fluticasone Fluticasone Yes Perez [address] [facility] Propionate Propionate Vera each Jennifer kes - nostril as Memoria needed l Outpati ent Clinics Lipitor Lipitor Yes Perez [address] [facility] Vera [facility] l Outpati ent Clinics Spironolact Spironolact Yes Perez [address] [facility] one one Vera with food [facility] - Memoria l Outpati ent Clinics Atropine Atropine Yes Perez 1 [facility] Sulfate Sulfate Vera applicatio Jennifer kes - n into the Memoria lower l eyelid of Outpati affected ent eye Clinics Vitamin B12 Vitamin B12 Yes Perez [address] [facility] Vera [facility] l Outpati ent Clinics Incruse Incruse Yes Perez 1 puff [facility] Ellipta Ellipta Vera [facility]oria l Outpati ent Clinics Metolazone Metolazone Yes Perez [address] [facility] Vera [facility]oria l Outpati ent Clinics Bumetanide Bumetanide Yes Perez TAKE [address] [facility] Vera TABLET BY Lukes - MOUTH Memoria TWICE l DAILY FOR Outpati 30 DAYS ent Clinics Ilevro Ilevro Yes Perez [address] [facility] Vera into [facility]ukes - affected Memoria eye l Outpati ent Clinics Albuterol Albuterol Yes Perez [address] [facility] Sulfate Sulfate Vera needed [facility] - Memoria l Outpati ent Clinics Bumex Bumex Yes Perez take 1 tab [facility] Outpati ent Clinics Jardiance Jardiance Yes Perez [address] [facility] Vera [facility] l Outpati ent Clinics Vitamin C Vitamin C Yes Perez [address] [facility] Vera [facility] l Outpati ent Clinics Brittanie Gu 2020- No Perez [address] [facility] [facility] Ellipta Ellipta 05-06 Vera [facility] - 00:00 Memoria :00 l [facility] ent Clinics Potassium Potassium Perez [address] [facility] Chloride Chloride 08-09 Vera with food [facility] - 00:00 Memoria :00 l [facility] ent Clinics Immunizations Ordered Immunization Filled Immunization Date Status Commen ts Source Name Name EDGAR FLORES PF 2018-12-14 [facility] 00:00:00 Mosque Vital Signs Vital Name Observation Time Observation Value Comments Source Systolic blood 2018-12-16 12:02:05 126 mm[Hg] Juanpablo n Mosque pressure Diastolic blood 2018-12-16 12:02:05 70 mm[Hg] Chace on Mosque pressure Heart rate 2018-12-16 12:02:05 70 /min Rafael Montague Body temperature 2018-12-16 12:02:05 36.06 Priscila [place] Respiratory rate 2018-12-16 12:02:05 18 /min [place] Oxygen saturation in 2018-12-16 12:02:05 95 /min Rafael Montague Arterial blood by Pulse oximetry Body weight 2018-12-16 07:00:00 129.275 kg Rafael Montague BMI 2018-12-16 07:00:00 55.66 kg/m2 Rafael Montague Body height 2018-12-09 20:01:00 152.4 cm Rafael Montague Procedures Procedure Date / Time Performing Clinician Source Performed BASIC METABOLIC PANEL 2018-12-16 04:00:00 Zofia Mckinney ESTIMATED GFR 2018-12-16 04:00:00 Zofia Mckinney Meth odist POC GLUCOSE 2018-12-14 08:02:00 Zofia Mckinney NM LUNG VENTILATION 2018-12-13 14:15:02 Walter Arriaza PERFUSION [place] POC GLUCOSE 2018-12-12 17:00:00 Zofia Mckinney US DUPLEX VENOUS LOWER 2018-12-12 15:14:21 Zofia Mckinney EXTREMITY BILATERAL POC GLUCOSE 2018-12-12 12:20:[address] CHEST WO CONTRAST 2018-12-12 09:12:50 Walter Arriaza [place] POC GLUCOSE 2018-12-12 08:29:00 Zofia Mckinney Meth odist POC GLUCOSE 2018-12-11 18:00:00 Zofia Mckinney Meth odist TTE COMPLETE, WO CONTRAST, 2018-12-11 11:45:00 Walter Arriaza W DOPPLER ([id number]) [place] ECG 12-LEAD 2018-12-10 08:51:39 Tu, Niki Montague HC COMPLETE BLD COUNT 2018-12-09 23:10:00 Tu, Niki Montague W/AUTO DIFF PROTHROMBIN TIME WITH INR 2018-12-09 23:10:00 Tu, Niki Montague PARTIAL THROMBOPLASTIN 2018-12-09 23:10:00 Tu, Niki Montague TIME (PTT) COMPREHENSIVE METABOLIC 2018-12-09 23:10:00 Tu, Niki Montague PANEL TROPONIN 2018-12-09 23:10:00 Tu, Niki Montague B NATRIURETIC PEPTIDE 2018-12-09 23:10:00 Tu, Niki Montague ESTIMATED GFR 2018-12-09 23:10:00 Tu, Niki Montague XR CHEST 1 VW PORTABLE 2018-12-09 22:57:32 Tu, Niki Montague ECG ED PRELIMINARY 2018-12-09 22:19:43 Tu, Niki Montague INTERPRETATION Plan of Care Planned Activity Planned Date Details Comments Source Future Scheduled 2019-11-05 INFLUENZA VACCINE [place] [facility] 00:00:00 [code = INFLUENZA VACCINE] Future Scheduled 2012 BREAST CANCER [place] Me thodist Test 00:00:00 SCREENING [code = BREAST CANCER SCREENING] Future Scheduled 2012 COLONOSCOPY SCREENING [facility] Mosque Test 00:00:00 [code = COLONOSCOPY SCREENING] Future Scheduled 2012 SHINGLES VACCINES [place] [facility] 00:00:00 (#1) [code = SHINGLES VACCINES (#1)] Future Scheduled 1983-[birth year]-22 Screening for [facility] thodist Test 00:00:00 malignant neoplasm of cervix (procedure) [code = 190083363] Encounters Start End Encounter Admission Attending Care Care Encounter Source Date/Time Date/Time Type Type Clinicians Facility Department ID 2019-05-12 2019-05-12 [facility] [id number] [facility] 11:00:00 11:00:00 t Soledad Soledad [employer] [facility] LuSkoodat s - Drive [facility] Medicine Medicine Outpati ent Clinics 2019-05-04 2019-05-04 [facility] [id number] 16:41:00 16:41:00 t Soledad Soledad [employer] Lu[facility]oodat s - Drive [facility] Medicine Outpati ent Clinics 2019-04-19 2019-04-19 [facility] [id number] 16:43:00 16:43:00 t Soledad Soledad [employer] Lu[facility] s - [facility] [facility] Medicine l Medicine Outpati ent Clinics 2019-02-21 2019-02-21 [facility] [id number] 08:45:00 08:45:00 t Soledad Soledad Cod[employer]an s - [employer] [facility] Medicine Outpati ent Clinics 2019-02-17 2019-02-17 [facility] [id number] 10:11:00 10:11:00 t Soledad TakWak s - [employer] [facility] Medicine Outpati ent Clinics 2019-02-14 2019-02-14 [facility] [id number] 16:38:00 16:38:00 t Soledad TakWak s - [employer] [facility] Medicine Outpati ent Clinics 2019-02-07 2019-02-07 [facility] [id number] 10:00:00 10:00:00 t Bone Bone and [facility] - and [facility] Clinics 2018-12-31 2018-12-31 [facility] [id number] 11:29:00 11:29:00 t Soledad Soledad CodersClan s - Drive [facility] Medicine Outpati ent Clinics 2018-12-24 2018-12-24 [facility] [id number] 10:19:00 10:19:00 t Soledad Soledad CodersClan s - Drive [facility] Medicine Outpati ent Clinics 2018-12-23 2018-12-23 [facility] [id number] 08:53:00 08:53:00 t Soledad TakWak s Traxian [facility] Medicine Outpati ent Clinics 2018 2018 [facility] [id number] 08:30:00 08:30:[address] Luke s - Drive [facility] Outpati ent Clinics 2018-12-20 2018-12-20 [facility] [id number] 16:22:00 16:22:[address] Luke s - Drive [facility] Medicine Outpati ent Clinics 2018-12-20 2018-12-20 [facility] [id number] 13:42:00 13:42:00 t Soledad Soledad [employer] [facility] Luke s - Drive [facility] Medicine Outpati ent Clinics 2018-12-09 2018-12-16 Inpatient [place] [id number] [place] [address] 00:00:00 00:00:00 ZOFIA Castro Method i st 2018-12-14 2018-12-14 [facility] [id number] 14:52:00 14:52:00 t Soledad Soledad [employer] [facility] Luke s - Drive [facility] Medicine Outpati ent Clinics 2018-12-14 2018-12-14 [facility] [id number] 14:13:00 14:13:00 t Soledad CareLuLu Luke s - Drive [facility] Outpati ent Clinics 2018-12-02 2018-12-02 [facility] [id number] 13:53:00 13:53:00 t Soledad CareLuLu Luke s - Drive [facility] Medicine Outpati ent Clinics 2018-11-02 2018-11-02 [facility] [id number] 16:37:00 16:37:00 t Soledad CareLuLu Luke s - Drive [facility] Medicine Outpati ent Clinics 2018-11-02 2018-11-02 Orders Doctor JEROME [id number] 00:00:00 00:00:00 Only Unassigned, ROLAN [id number] Ivor [facility] [id number] 2018-10-27 2018-10-27 [facility] [id number] 13:31:00 13:31:[address] Luke s - Drive [facility] Medicine l Medicine Outpati ent Clinics 2018-10-13 2018-10-13 [facility] [id number] 13:30:00 13:30:[address] Luke s - Drive [facility] Medicine l Medicine Outpati ent Clinics 2018-09-28 2018-09-28 [facility] [id number] 10:13:00 10:13:[address] Luke s - Drive [facility] Medicine l Medicine Outpati ent Clinics 2018-09-15 2018-09-15 [facility] [id number] 13:49:00 13:49:[address] Luke s - Drive [facility] l Medicine Outpati ent Clinics 2018-08-11 2018-08-11 [facility] [id number] 08:00:00 08:00:00 t Soledad Soledad [employer] Luke s - Drive [facility] Medicine Outpati ent Clinics 2018-08-03 2018-08-03 [facility] [id number] 15:36:00 15:36:[address] Luke s - Drive [facility] Medicine l Medicine Outpati ent Clinics 2018-07-23 2018-07-23 [facility] [id number] 10:31:00 10:31:00 t Soledad Soledad [employer] Luke s - Drive [facility] Medicine Medicine Outpati ent Clinics 2018-07-21 2018-07-21 [facility] [id number] 14:46:00 14:46:[address] Luke s - Drive [facility] Medicine l Medicine Outpati ent Clinics 2018-07-14 2018-07-14 [facility] [id number] 16:45:00 16:45:[address] Luke s - Drive [facility] l Medicine Outpati ent Clinics 2018-07-01 2018-07-01 [facility] [id number] 09:58:00 09:58:[address] Luke s - Drive [facility] l Medicine Outpati ent Clinics 2018-06-17 2018-06-17 [facility] [id number] 16:00:00 16:00:[address] Luke s - Drive [facility] Medicine l Medicine Outpati ent Clinics 2018-06-10 2018-06-10 [facility] [id number] 15:56:00 15:56:[address] Luke s - Drive [facility] Medicine l Medicine Outpati ent Clinics 2018-06-08 2018-06-08 [facility] [id number] 10:30:00 10:30:[address] Luke s - Drive [facility] Medicine l Medicine Outpati ent Clinics 2018-05-31 2018-05-31 [facility] [id number] 14:12:00 14:12:[address] Luke s - Drive [facility] Medicine l Medicine Outpati ent Clinics 2018-05-27 2018-05-27 [facility] [id number] 11:15:00 11:15:00 t Soledad Soledad [employer] [facility] Luke s - Drive [facility] Medicine l Medicine Outpati ent Clinics 2018-04-22 2018-04-22 [facility] [id number] 11:00:00 11:00:00 t Soledad Soledad [employer] [facility] Luke s - Drive [facility] Medicine l Medicine Outpati ent Clinics 2018-04-07 2018-04-07 [facility] [id number] 11:30:00 11:30:00 t Soledad Soledad [employer] [facility] Luke s - Drive [facility] Medicine l Medicine Outpati ent Clinics 2018-01-14 2018-01-14 [facility] [id number] 10:30:00 10:30:00 t Soledad Soledad [employer] [facility] Luke s - Drive [facility] Medicine l Medicine Outpati ent Clinics 2018-01-11 2018-01-11 [facility] [id number] 15:55:00 15:55:[address] Luke s - Drive [facility] Medicine l Medicine Outpati ent Clinics 2017-11-18 2017-11-18 [facility] [id number] [facility] 15:30:00 15:30:00 t Soledad [facility] [employer] [address] - [address] [facility] Medicine l Medicine Outpati ent Clinics 2017-10-19 2017-10-19 Outpatient Elina Antoinet [id number] 16:08:00 16:08:00 t [employer] s - Drive [facility] ent Clinics 2017-10-15 2017-10-15 Outpatient Elina Antoinet [id number] 10:30:00 10:30:00 t [employer] s - Drive [facility] ent Clinics 2017-07-09 2017-07-09 Outpatient Elina Antoinet [id number] [address] 10:39:00 10:39:00 t [employer] s - Drive [facility] ent Clinics 2017-07-01 2017-07-01 Outpatient Elina Antoinet [id number] 11:00:00 11:00:00 t [employer] - [employer] [facility] ent Clinics Results Test Description Test Time Test Comments Results Result Comments Source Basic metabolic panel 2018-12-16 06:53:45 Test Item Value Reference Range Interpretation Comme nts Sodium (test code = 2951-2) 137 135- 148 mEq/L Potassium (test code = 2823-3) 4.3 3.5- 5.0 mEq/L Chloride (test code = 2075-0) 95 98- 112 mEq/L L CO2 (test code = 8-9) 31 24- 31 mEq/L Anion gap (test code = 14492-8) 11@ANIO 7- 15 mEq/L BUN (test code = 3094-0) 22 mg/dL 6-20 H Creatinine (test code = 2160-0) 0.72 mg/dL 0.5-0.9 Glucose (test code = 2345-7) 111 mg/dL 65-99 H Calcium (test code = 05561-7) 9.3 mg/dL 8.3-10.2 Lab Interpretation (test code = 23984-7) Abnormal [place] [facility] [id number] 06:53:45 Test Item Value Reference Range Interpretation Comments Estimated GFR (test >=90 mL/min/1.73 m2 [facility] Units code = 5488) InterpretationG 1 >=90 Normal or highG2 60-89 Mildly barnzfaqcE4v 45-59 Mildly to mode rately vvameixznS3a 30-44 Moderately to severely decreasedG4 15-29 Severely decre asedG5 <15 Kidn ey failureThe eGFR was calculated usin g the Chronic Kidney Disease Epidemiology Co llaboration (CKD-EPI) equat ion. Interpretation is based on recommendations of the National Kidney Foundation-Kidn ey Disease Outcomes Qualit y Initiative (NKF-KDOQI) pub lished in 2013. [place] [facility] qfpljdc3581-45-34 08:03:36 Test Item Value Reference Range Interpretation Comments POC glucose (test code = 130 mg/dL 65-99 H [facility] Notified 25441-1) RNMeter ID: [id number] tor: Serjuan josea Rosa Lab Interpretation (test Abnormal code = 55358-3) [facility] Lung Ventilation Qhqomahmt6129-07-59 14:36:09Hm Interface, Radiology Results Incoming - 12/13/2018 2:39 PM CDTPROCEDURE: NM LUNG VENTILATION PERFUSIONINDICATION: Pulmonary hypertension suspected.COMPARISON: Chest CT 12/12/2018.TECHNIQUE: Planar ventilation images were acquired after the inhalation of 15 mCi of Xe-133 gas. Planar perfusion images were acquired after the IV administration of 5 mCi of Tc-99m MAA.FINDINGS: Ventilation images dem onstrate decreased ventilation to the lung periphery and lung bases. Washout images demonstrate nosignificant gas trapping. Perfusion images demonstrate decreased perfusion to the lung periphery and lung bases, matching the ventilation images. Overall perfusion is better than ventilation. No mism atched defects.IMPRESSION:1. Low probability for PE.2. No evidence for significant chronic PE.[facility]-[id number] [facility] duplex venous lower uejigfhze3052-81-37 23:22:00Interface, Radiology Results In - 12/12/2018 11:22 PM CDT Vascular Ultrasound Laboratory Lower Extremity Venous [address] [place] [address] Pat.Name: SERGEY LUA Pat.ID: [id number] .Date: 12/12/2018 Refer.MD: ZOFIA MCKINNEY MD Exam Time: 2:51:00 PM Study Type:LE Venous Height: 60in Weight: 279lb BSA: 2.15 m2 Age: 9 1960,57Y Sex: FEMALE Sonogrphr: Melodie Moran RVT Pat. Stat.:Inpatient Room: J9-0911-A Tape Vol: EDIN, CPT - 4: 01406 Echo Event ID:[id number] Order ID: [id number] Reason for Study:Leg swelling and pain. History CHF, COPD, HTN,lymphedema.Procedures:Colorflow, Grayscale/2D, Pulsed wave DopplerRace: C ----SUMMARY: DUPLEX SCAN OBSERVATIONS Deep Veins Superficial Veins Right Left Right Left EIV GSV (prox) Normal Normal CFV Normal Normal (above knee) Femoral Normal Normal GSV (dist) Normal Normal Profunda Normal Normal (below knee) Popliteal Normal Normal PT (prox) Normal Not visualized SSV Normal Normal PT (dist) Normal Normal Peroneal Not Visualized Not Visualized Gastrocs Normal Normal RIGHT: There is normal compressibility with no evidence of echogenicmaterial noted within the lumen of the visualized veins. Colorflow andDoppler signals are normal. The peroneal veins are not visualized. LEFT: There is normal compressibility with no evidenceof echogenicmaterial noted within the lumen of the visualized veins. Colorflow andDoppler signals are normal. The proximal posterior tibial and peronealveins are not visualized. PRELIMINARY FINDINGS 1. No evidence of venous thrombosis in the visualized veins. 2. Technically difficult study due to patient's body habitus and legedema. PHYSICIAN INTERPRETATION Venous examination of the both lower extremities demonstrated noevidence of venous thrombosis in the visualized veins. Normalcompressibility and augmentation of all veins visualized. Signed 12/12/2018 11:22 PMGuillermo Leach MD, RPVIHoufarren memorial hospital MethodistCT Chest Wo [id number] 09:21:22Hm Interface, Radiology Results - 12/12/2018 9:24 AM CDTEXAMINATION: CT CHEST WO CONTRASTCLINICAL HISTORY: Shortness of breathTECHNIQUE: Axial images of the chest were obtained without intravenous contrast. The lack of intravenous contrast reduces the sensitivity of the exam and evaluating vasculature. CT imaging was performed with iterative reconstruction technique and/or automated exposure control to reduce radiation dose.COMPARISON: July 26, 2018FINDINGS:Lungs and airways: There is extensive linear scarring throughout both lungs. Severe mosaic attenuation of the lung parenchyma. Findings are unchanged compared to the prior examination. No new airspace disease. Pleura: No pleural effusion or pneumothorax.Mediastinum and lymph nodes: Heterogenous thyroid gland. No suspicious lymphadenopathy. Cardiovascular: Dilated main pulmonary artery (3.6 cm).Upper abdomen: Left adrenal adenoma measures 3.3 cm. Calcifications near the gallbladder fundus, incompletely visualized.Musculoskeletal:No suspicious osseous lesions. Remote right lateral seventh rib fracture. Spondylosis.IMPRESSION:1.No acute airspace disease.2.Extensive linear scarring throughout both lungs, unchanged.3.Severe mosaicattenuation of the lung parenchyma, compatible with small airways disease versus perfusional heteroge neity.4.Unchanged dilated main pulmonary artery, which can be seen in pulmonary hypertension.[facility]-[id number] MethodistECG 12 [id number] 22:36:15 Test Item Value Reference Range Interpretation Comments Ventricular rate (test 76 code = 253) Atrial rate (test code 76 = 255) AK interval (test code 196 = 266) QRSD interval (test 92 code = 260) QT interval (test code 428 = 264) QTC interval (test code 481 = 265) P axis 1 (test code = 43 267) QRS axis 1 (test code = 49 268) T wave axis (test code 9 = 270) EKG impression (test Normal sinus rhythm-T code = 273) wave abnormality, consider anterior ischemia-Prolonged QT-Abnormal ECG-In automated comparison with ECG of 26-JUL-2018 09:49,-premature ventricular complexes are no longer present-premature atrial complexes are no longer present-Inverted T waves have replaced nonspecific T wave abnormality in Inferior leads-T wave inversion now evident in Lateral leads- [place] MethodistEchocardiogram complete w contrast and 3D if ruopvf1396-60-12 17:53:00Interface, Radiology Results In - 12/11/2018 5:54 PM CDT Echocardiography Report [address] [address], [place] [address] [facility].Name: SERGEY LUA Pat.ID: [id number].Date: 12/11/2018 Refer.MD: ZOFIA MCKINNEY MDExam Time: 10:52:00 AM Study Type:Routine Echo Height: 60in Weight: 279lb BSA: 2.15 m2 Age: 9 1960,57Y Sex: FEMALE Sonogrphr: Fanny Abrams RDCS, RVSPat. Stat.:Inpatient Room: [facility] Study Status:Final Echo Event ID:[id number] Order ID: [id number] Reason for Study:Pulmonary HypertensionHistory / Clinical:COPD, CHF, HypertensionProcedures:2D Echo, Colorflow Doppler, Intravenous Definity ContrastRace: C SUMMARY: Technically difficult study despite the use of echo contrast. LV EF is normal. RV size is difficult to assess. Unable to assess RV systolic function. Unable to assess PA systolic pressure despite use of contrast.-------- FINDINGS: LV: LV size is normal. LV EF is normal. Overall wall motion is normal. Estimated EF is 55-59%.RV: RV size is difficult to assess. Unable to assess RV systolic function. LA: LA volume is difficult to assess.RA: RA volume is difficult to assess.AO: Aortic root diameter is normal.STEPHANIE: No pericardial effusion.AV: No structural AV abnormalities noted.MV: No structuralMV abnormalities noted.PV: Pulmonic valve not well seen.TV: No structural TV abnormalities noted.Other: Unable to assess PA systolic pressure despite use of contrast. Signed 12/11/2018 05:53 Funmi Hutchison M.D.[facility] natriuretic fzzndyb2715-51-40 00:49:01 Test Item Value Reference Range Interpretation Comments BNP (test code = 95996-4) 9 pg/mL 0-100 Hall RezoakuvyTrwocezc1372-80-49 00:48:47 Test Item Value Reference Range Interpretation Comments Troponin (test code = <0.006 0-0.04 [place] [address]-5) Laboratories ch anged methodology eff ective: 08/10/2018 at 10: 00 amThe new method has a 99th percentile cuto ff of 0.040 ng/mL [place] MethodistPartial thromboplastin time, qtzrmfzwj4277-57-06 00:37:59 Test Item Value Reference Range Interpretation Comments PTT (test code = 27.5 23.0- 36.0 [place] [address]-9) unfractionated heparin is61.0-112.0 se conds which corresponds to Anti-Xa0.3-0.7 U/ml. [place] MethodistProthrombin time with [id number] 00:37:24 Test Item Value Reference Range Interpretation Comments Prothrombin time (test 14.2 11.5- 14.5 sec code = 5902-2) INR (test code = 1.1 The Interna tional 50840-3) Normalized Rati o (INR) is a therapeutic m onitoring tool for patien ts who are stable on oral anticoagulant t herapy. An INR of 2.0-3.0 is suggested for d eep vein thrombosis/pulm onary embolism. [place] MethodistComprehensive metabolic jiglc0771-41-45 00:35:39 Test Item Value Reference Range Interpretation Comments Sodium (test code = 137 135- 148 mEq/L 2951-2) Potassium (test code = 3.5 3.5- 5.0 mEq/L 2823-3) Chloride (test code = 93 98- 112 mEq/L L 2075-0) CO2 (test code = 2027-9) 32 24- 31 mEq/L H Anion gap (test code = 12@ANIO 7- 15 mEq/L 49990-7) BUN (test code = 3094-0) 26 mg/dL 6-20 H Creatinine (test code = 0.81 mg/dL 0.5-0.9 2160-0) Glucose (test code = 124 mg/dL 65-99 H 2345-7) Calcium (test code = 9.3 mg/dL 8.3-10.2 14606-8) Protein (test code = 8.6 g/dL 6.3-8.3 H 2885-2) 4.6-7.0 g/dL 1 week 4.4-7.6 g/dL7 months-1year 5.1-7.3 g/dL 1-2 years 5.6-7.5 g/dL>3 years 6.0-8.0 g/dL18- 150 6.3-8.3 g/dL Albumin (test code = 3.5 g/dL 3.5-5 1-7) A/G ratio (test code = 0.7 0.7-3.8 1759-0) Alkaline phosphatase 73 U/L 35-104 (test code = 6768-6) AST (test code = 1920-8) 23 U/L 10-35 ALT (test code = 1742-6) 24 U/L 5-50 Total bilirubin (test 0.9 mg/dL 0-1.2 code = 1974-2) Lab Interpretation (test Abnormal code = 33966-6) [facility] with platelet and hkrvkqohfgpm1198-18-52 00:17:58 Test Item Value Reference Range Interpretation Comments WBC (test code = 28455-2) 6.64 4.50- 11.00 k/uL RBC (test code = 26430-5) 4.35 m/uL 4.2-5.5 HGB (test code = 718-7) 11.6 g/dL 12-16 L HCT (test code = 4544-3) 38.3 % 37-47 MCV (test code = 787-2) 88.0 fL 82-100 MCH (test code = 785-6) 26.7 pg 27-34 L MCHC (test code = 786-4) 30.3 g/dL 31-37 L RDW - SD (test code = 51.9 fL 37-55 69285-0) MPV (test code = 72265-2) 10.2 fL 8.8-13.2 Platelet count (test code 279 150- 400 k/uL = 23772-4) Nucleated RBC (test code 0.00 /100 WBC = 65351-2) Neutrophils (test code = 61.8 % 39-69 08595-8) Lymphocytes (test code = 24.8 % 25-45 L 79517-9) Monocytes (test code = 10.8 % 0-10 H 96448-0) Eosinophils (test code = 2.1 % 0-5 41471-2) Basophils (test code = 0.2 % 0-1 01516-7) Immature granulocytes 0.3 % 0-1 "Immat ure (test code = 38783-9) granul ocytes" (promyelocytes, myelocytes, metamyelocytes) Lab Interpretation (test Abnormal code = 48449-7) [facility] MethodistXR Chest 1 Vw Zlehjgln0793-78-62 23:00:44Hm Interface, Radiology Results - 12/09/2018 11:03 PM CDTExamination: XR CHEST 1 VW PORTABLEClinical History: chest painComparison: None.Technique: Single frontal view of the chest is obtained.Findings:Cardiomegaly with vascular crowding or congestion are noted.Mild bilateral interstitial infiltrates are noted.No pleural effusion is seen.No pneumothorax is seen.Impression:Cardiomegaly with vascular crowding or congestion and mild bilateral interstitial infiltrates.[facility]-[id number] MethodistOKLA[facility] ED Preliminary Interpretation - Not an Cfoxa4022-14-35 22:19:43 Test Item Value Reference Range Interpretation Comments RANDOLPH (test code = RANDOLPH) Niki Peterson MD 12/13/2018 12:40 [facility] ED Preliminary Interpretation - Not an OrderPerformed by: Niki Peterson MDAuthorized by: Niki Peterson MD ECG reviewed by ED Physician in the absence of a form builder helper: yes Previous ECG: Previous ECG: UnavailableInterpretat ion: Interpretation: abnormal Rate: ECG rate: 68 ECG rate assessment: normal Rhythm: Rhythm: sinus rhythm Ectopy: Ectopy: none QRS: QRS axis: Normal QRS intervals: NormalConduction: Conduction: abnormal Abnormal conduction: 1st degree ST segments: ST segments: NormalT waves: T waves: inverted Inverted: V1, V2, V3, V4 and V5 Lab Interpretation Abnormal (test code = 18805-6) [place] MethodistBREAST ULTRASOUND [id number] 11:07:59- BREAST ULTRASOUND BILATERALULTRASOUND OF BOTH BREASTS AND BOTH AXILLA: 06/25/2018CLINICAL: Abnormalmammogram. Comparison is made to exam dated 04/29/2018 mammogram - [facility]. Real-time ultrasound of both breasts and both axilla was performed. No abnormalities were seen sonograp hically in either breast or either axilla. Clinical breast exam was unremarkable.IMPRESSION: PROBABLY BENIGN - FOLLOW-UP RECOMMENDEDThe small round smooth nodules appear to be small cysts, however, since there are no prior mammograms a follow-up mammogram in 6 months is recommended to demonstrate stab ility. Sandra Tolentino M.D. dm/:06/25/2018 11:07:59 Silverer: Lyla Garcia FW, [facility]-FWletter sent: Short Term Follow Up Ultrasound BI-RADS: 3 Probably benignSCR MAMM BILATERAL TESHA CAD DIGITAL 2018-05-10 16:41:30 - SCR MAMM BILATERAL TESHA CAD DIGITALBILATERAL [facility] DIGITAL SCREENING MAMMOGRAM 3D/2D WITH CAD: 04/29/2018CLINICAL: Asymptomatic. Digital breast tomosynthesis was performed in addition to routine CC and MLO views. Current mammographic images were evaluated by either a [employer] M-Vu or an iCAD version 7.2 computer [...] noted bilaterally.IMPRESSION: INCOMPLETE ASSESSMENT: ADDITIONAL IMAGING EVALUATION REC OMMENDEDFurther evaluation is pending; breast ultrasound to be performed today. Tory Koo M.D. cc/:05/10/2018 16:41:30 Entry: cc - 05/11/2018 14:26:43Imaging Technologist: Marya Hartman MM,[facility] sent: Additional Imaging Mammogram BI-RADS: 0 IndeterminateSCR MAMM BILATERAL TESHA CAD DUASTAN0816-33-96 16:41:30AMENDMENT: 05/18/2018 Tory Koo M.D. The statement:IMPRESSION: INCOMPLETE ASSESSMENT: ADDITIONAL IMAGING EVALUATION RECOMMENDEDFurther evaluation is pending; breast ultrasound to be performed tojaxson y. in the above examination is incorrect. The correct statement is:IMPRESSION: INCOMPLETE ASSESSMENT: ADDITIONAL IMAGING EVALUATION RECOMMENDEDThe multiple bilateral areas of asymmetry in focal asymmetry are indeterminate. Comparison to previous mammograms is recommended and if the findings are newor priors are unobtainable and ultrasound should be performed.Amended BI-RADS: 0 Indeterminate
[2019-09-10 12:01] LABS: Absolute Lymphocytes (CBC) 1.8 K/uL (0.7-4.9); Basophils % 0.7 % (0-1.3); RBC Red Blood Cell Count 4.09 M/uL (3.86-4.86)
[2019-09-10 12:11] LABS: Arterial Blood Carboxyhemoglob 1.3 % (0-1.5); Blood Gas Oxyhemoglobin 92.9 % (94-97); Blood O2 Saturation 94.8 % (92-98.5)
[2019-09-10 12:22] LABS: ALT/SGPT 38 U/L (12-78); AST/SGOT 24 U/L (15-37); Albumin 3.3 g/dL (3.4-5.0); Alkaline Phosphatase 69 U/L (45-117); BUN Blood Urea Nitrogen 16 mg/dL (7-18); Bicarbonate 29 mmol/L (21-32); Bilirubin Direct 0.2 mg/dL (0-0.2); Bilirubin Total 0.8 mg/dL (0.2-1.0); Glucose Level 139 mg/dL (74-106); Lipase 126 U/L (73-393); NT PRO-BNP 102 pg/mL (<125); Potassium 3.6 mmol/L (3.5-5.1); Protein, Total 8.9 g/dL (6.4-8.2); Sodium Level 138 mmol/L (136-145); Troponin (Emerg Dept Use Only) < 0.02 ng/mL (0.0-0.045)
--- NOTE | 2019-09-10 12:48 | RAD REPORT ---
EXAM DESCRIPTION: RAD - Chest Single View - 09/10/2019 12:41 pm CLINICAL HISTORY: DYSPNEA COMPARISON: Portable July 2018 TECHNIQUE: AP portable chest image was obtained 09/10/2019 12:41 pm . FINDINGS: Lung volumes are low. Chronic interstitial lung disease is present matching the prior stud y. Acute infiltrates or edema could easily be masked by the extent of chronic disease. No grossly dif ferent finding seen. Heart size is prominent but stable. Vasculature similar to comparison. No measurable pleural effusio n and no pneumothorax. No acute bony abnormality seen. No acute aortic findings suspected. IMPRESSION: Patient has very extensive chronic interstitial lung disease no clear change from prior study noted.
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
[2019-09-10 15:02] VITALS: TEMP 97.8
[2019-09-10 15:05] VITALS: BP 107/73; O2SAT 100
--- NOTE | 2019-09-12 07:48 | EKG ---
Test Date: 2019-09-10 Test Time: 14:32:56 Cardio Tech: BRIGITTE MEASUREMENT RESULTS: Intervals: Rate: 71 OR: 188 QRSD: 96 QT: 408 QTc: 443 [place]: P: 45 OR: 188 QRS: 34 T: 21 INTERPRETIVE STATEMENTS: Normal sinus rhythm T wave abnormality, consider anterior ischemia Abnormal ECG Compared to ECG 07/21/2018 17:06:46 T-wave abnormality now present Possible ischemia now present First degree AV block no longer present ST (T wave) deviation no longer present Electronically Signed On 09-12-19 07:44:54 CDT by Juliano Rg
== END 2019-09-10 14:57 | disposition home or self-care (01) ==
LOC: ER 11:28
DX: R55 Syncope and collapse (principal); I10 Essential (primary) hypertension; I27.20 Pulmonary hypertension, unspecified; Z88.6 Allergy status to analgesic agent; Z99.81 Dependence on supplemental oxygen
CPT/HCPCS: 36415; 70450; 71045; 80048; 80076; 82805; 82947; 83690; 83735; 83880; 84484; 85025; 93005; 99285

== ENCOUNTER 2021-02-04 14:19 | Emergency (ER) | payer OTHER ==
--- NOTE | 2021-02-04 14:43 | EDPHYS ---
Physician Documentation [facility] Name: Gaye Castro Age: 60 yrs Sex: Female : 1960 Arrival Date: 02/04/2021 Time: 14:24 Bed Waiting Private MD: [facility] ED Physician Mariano Berg HPI: 02/04 14:50 This 60 yrs old Female presents to ER via Ambulatory with complaints of kb Infected wound. 14:50 The patient presents with cellulitis of the medial aspect of right thigh. Description: kb erythematous, warm. Onset: The symptoms/episode began/occurred 2 day(s) ago. Possible cause(s): dog scratch. Associated signs and symptoms: The patient has no apparent associated signs or symptoms. Modifying factors: the symptoms are alleviated by nothing, the symptoms are aggravated by nothing. Severity of symptoms: At their worst the symptoms were mild, in the emergency department the symptoms are unchanged. The patient has not experienced similar symptoms in the past. The patient has not recently seen a physician. Pt reports her dog scratched her 2 days ago and she noticed some redness and warmth to the area today. States she has lymphedema and a history of cellulitis so she wanted to get it taken care of before it got worse. Historical: - Allergies: 14:43 Ibuprofen; triggers GI bleeding; vg1 - Home Meds: 14:43 albuterol sulfate 2.5 mg/0.5 mL Inhl nebu 0.5 mL 4 times per day [Active]; alprazolam vg1 0.25 mg Oral tab 1 tab once a day [Active]; Breo Ellipta inhalation 1 puff once daily [Active]; carvedilol 3.125 mg Oral tab 1 tab 2 times per day [Active]; citalopram 40 mg tab 1 tab once daily [Active]; Klor-Con M20 20 mEq Oral TbTQ 1 tab [Active]; Lasix 80 mg Oral tab 1 tab 2 times per day [Active]; pantoprazole 40 mg Oral TbEC 1 tab once daily [Active]; spironolactone 25 mg Oral tab 1 tab 2 times per day [Active]; - PMHx: 14:43 Anxiety; CHF; COPD; Depression; Hypertension; hypoxia; lymphedema; Pneumonia; PULMONARY vg1 HYPERTENSION; Sleep Apnea; small heart and lungs; uses home o2; - Immunization history:: Adult Immunizations up to date, Client reports receiving the 2nd dose of the Covid vaccine. - Social history:: Smoking status: Patient denies any tobacco usage or history of. ROS: 14:49 Constitutional: Negative for fever, chills, and weight loss. kb 14:49 Skin: Positive for abrasion(s), erythema, of the right leg and medial aspect of right thigh. 14:49 All other systems are negative. Exam: 14:49 Constitutional: This is a well developed, well nourished patient who is awake, alert, kb and in no acute distress. Head/Face: Normocephalic, atraumatic. ENT: Moist Mucous membranes Respiratory: Respirations even and unlabored. No increased work of breathing, no retractions or nasal flaring. MS/ Extremity: Pulses equal, no cyanosis. Neurovascular intact. Full, normal range of motion. Neuro: Awake and alert, GCS 15, oriented to person, place, time, and situation. Moves all extremities. Normal gait. Psych: Awake, alert, with orientation to person, place and time. Behavior, mood, and affect are within normal limits. 14:49 Skin: injury, abrasion(s), moderate sized abrasion noted, of the medial aspect of right thigh, with surrounding redness and warmth. Vital Signs: 14:37 BP 120 / 72; Pulse 88; Resp 22; Temp 97.8; Pulse Ox 96% on 3 lpm NC; Weight 109.32 kg; vg1 Height 5 ft. 0 in. (152.40 cm); Pain 0/10; 14:37 Body Mass Index 47.07 (109.32 kg, 152.40 cm) vg1 MDM: 14:42 Patient medically screened. kb 14:48 Data reviewed: vital signs, nurses notes. Data interpreted: Pulse oximetry: on 4% kb oxygen by non-rebreather, home o2 is 96 %. Interpretation: normal. Counseling: I had a detailed discussion with the patient and/or guardian regarding: the historical points, exam findings, and any diagnostic results supporting the discharge/admit diagnosis, the need for outpatient follow up, a family practitioner, to return to the emergency department if symptoms worsen or persist or if there are any questions or concerns that arise at home. Administered Medications: No medications were administered Disposition: 02/05 11:32 Co-signature as Attending Physician, Mariano Berg MD I agree with the assessment and rosalind plan of care. Disposition Summary: 02/04/21 14:43 Discharge Ordered Location: Home kb Condition: Stable kb Diagnosis - Local infection of the skin and subcutaneous tissue, unspecified kb Followup: kb - With: Emergency Department - When: As needed - Reason: Worsening of condition Followup: kb - With: Private Physician - When: 2 - 3 days - Reason: Recheck today's complaints, Continuance of care, Re-evaluation by your physician Discharge Instructions: - Discharge Summary Sheet kb - Wound Infection, [id number] kb Forms: - Medication Reconciliation Form kb - Thank You Letter kb - Antibiotic Education kb - Prescription Opioid Use kb Prescriptions: - Bactrim DS 800-160 mg Oral Tablet - take 1 tablet by ORAL route every 12 hours for 10 days; 20 tablet; Refills: 0, kb Product Selection Permitted Signatures: Alayna Carrillo, AGENCY SALES DEVELOPMENT ASSOCIATE-C JAREK-Mariano Vale MD MD cha Garcia, Victoria, RN RN vg1
--- NOTE | 2021-02-04 14:49 | ER ---
Nurse's Notes [facility] Name: Gaye Castro Age: 60 yrs Sex: Female : 1960 Arrival Date: 02/04/2021 Time: 14:24 Bed Waiting Private MD: Perez Vera Diagnosis: Local infection of the skin and subcutaneous tissue, unspecified Presentation: 02/04 14:37 Chief complaint: Patient states: About two nights ago dog scratched Right inner thigh. vg1 Site appears to have an abrasion and redness to site with no drainage seen. Coronavirus screen: Vaccine status: Patient reports receiving the 2nd dose of the covid vaccine. Client denies travel out of the [place] in the last 14 days. Ebola Screen: Patient negative for fever greater than or equal to 101.5 degrees Fahrenheit, and additional compatible Ebola Virus Disease symptoms. Initial Sepsis Screen: Does the patient meet any 2 criteria? RR > 20 per min. Does the patient have a suspected source of infection? No. Patient's initial sepsis screen is negative. Risk Assessment: Do you want to hurt yourself or someone else? Patient reports no desire to harm self or others. Onset of symptoms was February 02, 2021. 14:37 Method Of Arrival: Ambulatory vg1 14:37 Acuity: DEBBY 4 vg1 Triage Assessment: 14:43 General: Appears in no apparent distress. comfortable, Behavior is calm, cooperative. vg1 Pain: Complains of pain in medial aspect of right thigh. 14:47 Respiratory: Airway is patent Respiratory effort is even, unlabored, Respiratory vg1 pattern is tachypnea. Derm: Skin is intact, Skin is red, on Right inner thigh. Musculoskeletal: Circulation, motion, and sensation intact. Historical: - Allergies: 14:43 Ibuprofen; triggers GI bleeding; vg1 - Home Meds: 14:43 albuterol sulfate 2.5 mg/0.5 mL Inhl nebu 0.5 mL 4 times per day [Active]; alprazolam vg1 0.25 mg Oral tab 1 tab once a day [Active]; Breo Ellipta inhalation 1 puff once daily [Active]; carvedilol 3.125 mg Oral tab 1 tab 2 times per day [Active]; citalopram 40 mg tab 1 tab once daily [Active]; Klor-Con M20 20 mEq Oral TbTQ 1 tab [Active]; Lasix 80 mg Oral tab 1 tab 2 times per day [Active]; pantoprazole 40 mg Oral TbEC 1 tab once daily [Active]; spironolactone 25 mg Oral tab 1 tab 2 times per day [Active]; - PMHx: 14:43 Anxiety; CHF; COPD; Depression; Hypertension; hypoxia; lymphedema; Pneumonia; PULMONARY vg1 HYPERTENSION; Sleep Apnea; small heart and lungs; uses home o2; - Immunization history:: Adult Immunizations up to date, Client reports receiving the 2nd dose of the Covid vaccine. - Social history:: Smoking status: Patient denies any tobacco usage or history of. Screenin:48 Abuse screen: Denies threats or abuse. Nutritional screening: No deficits noted. vg1 Tuberculosis screening: No symptoms or risk factors identified. Fall Risk No fall in past 12 months (0 pts). No secondary diagnosis (0 pts). No IV (0 pts). Ambulatory Aid- Crutches/Cane/Walker (15 pts). Gait- Normal/Bed Rest/Wheelchair (0 pts) Mental Status- Oriented to own ability (0 pts). Total Lopez Fall Scale indicates No Risk (0-24 pts). Vital Signs: 14:37 BP 120 / 72; Pulse 88; Resp 22; Temp 97.8; Pulse Ox 96% on 3 lpm NC; Weight 109.32 kg; vg1 Height 5 ft. 0 in. (152.40 cm); Pain 0/10; 14:37 Body Mass Index 47.07 (109.32 kg, 152.40 cm) vg1 ED Course: 14:24 Patient arrived in ED. mr 14:24 Perez Vera DO is Private Physician. mr 14:42 Alayna Carrillo FNP-C [facility]. kb 14:42 Mariano Berg MD is Attending Physician. kb 14:43 Triage completed. vg1 14:43 Arm band placed on. vg1 14:48 Patient has correct armband on for positive identification. vg1 14:48 No provider procedures requiring assistance completed. Patient did not have IV access vg1 during this emergency room visit. Administered Medications: No medications were administered Outcome: 14:43 Discharge ordered by . kb 14:48 Discharged to home ambulatory, with family. vg1 14:48 Condition: stable 14:48 Discharge instructions given to patient, Instructed on discharge instructions, follow up and referral plans. medication usage, Demonstrated understanding of instructions, follow-up care, medications, Prescriptions given X 1. 14:48 Patient left the ED. vg1 Signatures: Alayna Carrillo, SHIRT IRONER-C SHIRT IRONER-Deborah Tolentino Jessica Tripathi, RN RN vg1 Corrections: (The following items were deleted from the chart) 14:46 14:37 BP 120 / 72; Pulse 88bpm; Resp 22bpm; Pulse Ox 93% 3 lpm Nasal Cannula; Temp vg1 97.8F; 109.32 kg; Height 5 ft. 0 in.; BMI: 47.0; Pain 0/10; vg1
[2021-02-04 15:01] VITALS: BP 120/72; TEMP 97.8; O2SAT 96
--- OUTSIDE RECORDS SUMMARY | 2021-02-16 06:14 | XMS REPORT | Continuity of Care Document ---
:1960 Author Organization [facility] t Address [address] [place] [address] Care Team Providers Name Role Phone Silver Vera Primary Care Physician DANYELLE Attending Clinician Unavailable MD KRZYSZTOF Attending Clinician Unavailable Kayley JAY Attending Clinician Terri Faust MD Attending Clinician Lukas NEUMANN Attending Clinician Misael NEUMANN Attending Clinician Xavi LOPES Attending Clinician Unavailable Melida Townsend Attending Clinician HANK Attending Clinician Unavailable Doctor Unassigned, Name Attending Clinician Unavailable DANYELLE Admitting Clinician Unavailable MD KRZYSZTOF Admitting Clinician Unavailable Terri Faust MD Admitting Clinician HANK Admitting Clinician Unavailable Payers Payer Name Policy Type Policy Number Effective Date Expiration Date [employer] [id number] 2018 00:00:00 [place] Problems Condition Condition Condition Status Onset Resolution Last Treating Co mments Source Name Details Category Date Date Treatment Clinician Date 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 Uni vers acute acute 0-01 [place] 00 [place] Acute on Acute on Disease Active Unive rs chronic chronic 9-11 [place] congestive congestive 00 Me dical heart heart Branch failure failure POLI POLI Disease Active Univers (obstructi (obstructi 9-11 it y of ve sleep ve sleep 00:00: [place] apnea) apnea) 00 Medical [place] Essential Essential Disease Active Uni vers hypertensi hypertensi -11 it y of on on 00:00: [place] 00 [facility] Morbid Morbid Disease Active Univers obesity obesity 12-14 ity of with body with body [place] mass index mass index 00 Me dical of 50 or of 50 or Branch higher higher Acute Acute Disease Active Univers respirator respirator 12-14 it y of y failure [place] failure [place] [facility] Respirator Respirator Disease Active U nivers y distress y distress 12-14 it y of 00:00: [address] Allergies, Adverse Reactions, Alerts Allergy Allergy Status Severity Reaction(s) Onset Inactive Treating Comm ents Source Name Type Date Date Clinician ibuprofe Adverse Active triggers [facility] Reaction [facility] Hydrocod Adverse Active dizziness [facility] NO KNOWN Drug Active Univers ALLERGIE Class ity of S [facility] Social History Social Habit Start Date Stop Date Quantity Comments Source History SDOH University o f Alcohol Frequency [facility] Branch History SDOH University o f Alcohol Std Drinks [facility] History [facility] University o f Alcohol Binge [facility] History of tobacco Cigarette Smoker University of use [facility] Exposure to Not sure [place] of SARS-CoV-2 (event) [facility] Alcohol intake 2021-01-04 2021-01-04 Current University of 00:00:00 00:00:00 non-drinker of [facility] alcohol Branch (finding) Tobacco use and 2016-12-14 2016-12-14 Never used Universit y of exposure 00:00:00 00:00:00 [facility] Cigarettes smoked 2016-12-14 2016-12-14 [facility] ity of current (pack per 00:00:00 00:00:00 [facility] ) - Reported Branch Cigarette 2016-12-14 2016-12-14 University of pack-years 00:00:00 00:00:00 [facility] Alcohol Comment 2016-12-14 2016-12-14 social drinker Unive rsity of 00:00:00 00:00:00 [facility] Sex Ass[birth year] At [birth year] Universit y of 00:00:00 00:00:00 [facility] Smoking Status Start Date Stop Date Source Former smoker 2016-12-14 00:00:00 2016-12-14 00:[facility]:00 [facility] Medications Ordered Filled Start Stop Current Ordering Indication Dosage Frequency Signature Comments Components Source Medication Medication Date Date Medication? Clinician (SIG) Name Name insulin NPH 2020-04 Yes [id number] 35U 35 Units, Univers (HUMULIN N) 0-09 Subcutaneo it y of injection 02:00: , [place] 35 Units 00 QAM+HS, Medical First dose Branch (after last modificati on) on Thu01/11/21 at 2100, Until Discontinu ed, Routine insulin 2020-04 Yes [id number] 20U 20 Units, U nivers lispro 0-08 Subcutaneo ity of (human) 17:15: us, TID [place] (HumaLOG 00 MEALS, Medical U-100) First dose Branch injection (after 20 Units last modificati on) on Thu01/11/21 at 1215, Until Discontinu ed, Routine sodium 2020-04- No 15g 15 g, Univers polystyrene 0-08 10-08 Oral, ity of sulfonate 17:15: 17:06 ONCE, 1 [place] (KAYEXALATE 00 :00 dose, On Medi ernie ) 15 Thu Branch gram/60 mL 01/11/21 at suspension 1215, 15 g Routine albuterol 2020-04- No 2.5mg Inhale 2.5 Univers 2.5 mg /3 0-08 10-08 mg every 4 ity of mL (0.083 15:46: 00:00 (four) [place] %) 49 :00 hours as Medical nebulizer needed for Bran ch solution Wheezing or Shortness of Breath. FLUTICASONE 2020-04- No Inhale. Un bobby /VILANTEROL 0-08 10-08 ity of (BREO 15:46: 00:00 [place] ELLIPTA 49 :00 Medical INHALE) Branch pantoprazol 2020-04- No 40mg Take 40 mg Univers e 40 mg EC 0-08 10-08 by mouth ity of tablet 15:46: 00:00 daily. [place] 49 :00 Medical Branch fluticasone 2020-04- No Use in Un bobby 50 0-08 10-08 each ity of mcg/actuati 15:46: 00:00 nostril [place] on nasal 49 :00 daily. Medical spray Branch MULTIVITAMI 2020-04- No Take by U nivers N ORAL 0-08 10-08 mouth ity of 15:46: 00:00 daily. [place] 49 :00 Medical Branch ALPRAZolam 2020-04- No .25mg Take 0.25 Univers 0.25 mg 0-08 10-08 mg by ity of tablet 15:46: 00:00 mouth 2 [place] 49 :00 (two) Medical times Branch daily. carvedilol 2020-04- No 3.125mg Take 3.125 Univers 3.125 mg 0-08 10-08 mg by ity of tablet 15:46: 00:00 mouth 2 [place] 49 :00 (two) Medical times [place] daily with meals. spironolact 2020-04- No Take by U nivers one 25 mg/5 0-08 10-08 mouth 2 ity of mL oral 15:46: 00:00 (two) [place] suspension 49 :00 times Medical daily. Branch insulin NPH 2020-04 No [id number] 28U 28 Units, Univers (HUMULIN N) 0-08 10-08 Subcutaneo i ty of injection 14:00: 17:03 us, [place] 28 Units 00 :33 QAM+HS, Medical First dose Branch (after last modificati on) on Thu01/11/21 at 0900, Until Discontinu ed, Routine insulin 2020-04 No [id number] 15U 15 Units, Univers lispro 0-08 10-08 Subcutaneo ity of (human) 13:00: 17:03 us, TID [place] (HumaLOG 00 :33 MEALS, Medical U-100) First dose Branch injection (after 15 Units last modificati on) on Thu01/11/21 at 0800, Until Discontinu ed, Routine NaCl 0.9% 2020-04 No 500mL at 100 Univ ers (NS) IV 0-07 10-07 mL/hr, IV ity of infusion 22:45: 22:20 Infusion, [place] as 500 mL 00 :00 ONCE, 1 Medical dose, On Branch Thu01/10/21 at 1745, Routine insulin 2020-04- No [id number] 12U 12 Units, Univers lispro 0-07 10-08 Subcutaneo ity of (human) 22:00: 02:28 us, TID [place] (HumaLOG 00 :10 MEALS, Medical U-100) First dose Branch injection (after 12 Units last modificati on) on Thu01/10/21 at 1700, Until Discontinu ed, Routine insulin NPH 2020-04 No 25U 25 Units, Univers (HUMULIN N) 0-06 10-07 Subcutaneo i ty of injection 14:00: 18:31 us, [place] 25 Units 00 :17 QAM+HS, Medical First dose Branch (after last modificati on) on Thu01/09/21 at 0900, Until Discontinu ed, Routine insulin 2020-04- No 10U 10 Units, Univ ers lispro 0-06 -07 Subcutaneo ity of (human) 13:00: 18:31 us, TID [place] (HumaLOG 00 :17 MEALS, Medical U-100) First dose Branch injection on Thu 10 Units 01/09/21 at 0800, Until Discontinu ed, Routine Sliding 2020-04 Yes Subcutaneo [facility] ers Scale 0-06 us, TID ity of Insulin - 02:00: MEALS+HS, [place] as Lispro 00 First dose Medical (HumaLOG) + (after Branch Fsbg last Testing modificati on) on Thu01/08/21 at 2100, Until Discontinu ed, Routine methylPREDN 2020-04 Yes 60mg 60 mg, Univ ers ISolone sod 0-06 Slow IV ity o f succ 01:00: Push, [place] (SOLU-MEDRO 00 Q12H, Medical L (PF)) First dose Branch injection (after 60 mg last modificati on) on Thu01/08/21 at 2000, Until Discontinu ed, Routine insulin NPH 2020-04 No 25U 25 Units, Univers (HUMULIN N) 0-06 10-06 Subcutaneo i ty of injection 00:30: 01:40 [place], ONCE, [place] 25 Units 00 :00 1 dose, On Medic al [facility] Branch 01/08/21 at 1930, Routine insulin 2020-04- No 10U 10 Units, Univ ers lispro 0-05 10-05 Subcutaneo ity of (human) 18:30: 17:36 [place], ONCE, [place] (HumaLOG 00 :00 1 dose, On Medic al U-100) [facility] Branch injection 01/08/21 at 10 Units 1330, Routine Sliding 2020-04- No Subcutaneo Uni vers Scale 0-05 10-06 us, TID ity of Insulin - 17:00: 00:02 MEALS+HS, [place] Lispro 00 :42 First dose Medical (HumaLOG) + on [facility] Fsbg 01/08/21 at Testing 1200, Until Discontinu ed, Routine KCL 2020-04- No 40meq 40 mEq, Univers (KLOR-CON 0-05 08 Oral, ity of M20) tablet 14:45: 14:28 DAILY, [place] 40 mEq 00 :53 First dose Medical on [facility] Branch 01/08/21 at 0945, Until Discontinu ed, Routine glucagon 2020-04 Yes 1mg 1 mg, Univers (GLUCAGEN 0-05 Intramuscu ity of DIAGNOSTIC 14:29: lar, PRN, [place] KIT) 05 Starting Medical injection [address] [facility] mg 01/08/21 at 0929, Until Discontinu ed, RONI, Blood Glucose < or = 70 mg/dL and patient is unable to swallow or has mental changes. dextrose 50 2020-04 Yes 25mL 25 mL, Univ ers % in water 0-05 Slow IV ity of (D50W) 14:29: Push, PRN, [place] injection 05 Starting Medica l 25 mL on [facility] Branch 01/08/21 at 0929, Until Discontinu ed, RONI, Blood Glucose < or = 70 mg/dL and patient is unable to swallow or has mental status changes. LORazepam 2020-04- Yes .25mg 0.25 mg, Un bobby (ATIVAN) 0-05 -09 Oral, ity of tablet 0.25 04:45: 04:44 QIDPRN, [place] mg 24 :24 Starting Medical on [facility] Branch 01/07/21 at 2345, Until Thu01/11/21 at 2344, Routine, Anxiety, Agitation fluticasone 2020-04 Yes 2{spray 2 [place], Univers propionate 0-04 } Nasal, ity of 50 15:45: DAILY, [place] mcg/actuati 00 First dose Me dical on nasal on [facility] Branch spray 2 01/07/21 at [place] 1045, Until Discontinu ed, Routine HYDROcodone 2020-04- Yes 1{tbl} 1 tablet, Univers -acetaminop 0-04 10-09 Oral, ity of hen (NORCO 01:31: 01:30 Q6HPRN, [place] 5) 5-325 mg 20 :20 Starting Medi ernie tablet 1 on [place] Branch tablet 01/06/21 at 203, Until Thu01/11/21 at 2030, Routine, Pain (scale 4-6) carvediloL 2020-04 Yes 3.125mg 3.125 mg, Univers (COREG) 0-03 Oral, BID ity of tablet 22:00: MEALS, [place] 3.125 mg 00 First dose Medic al (after Branch last modificati on) on [place] 01/06/21 at 1700, Until Discontinu ed, Routine sulfur 2020-04- No [id number] 5mL 5 mL, Univ ers hexafluorid 0-03 10-03 Intravenou i ty of e microsphr 16:00: 16:00 s, ONCE, 1 [place] (LUMASON) 00 :00 dose, On Medica l injection 5 [place] Branch mL 01/06/21 at 1100, Routine
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 Restricted medication : SHANTEL ETIENNE KCL 2020-04- No 40meq 40 mEq, Univers (KLOR-CON 0-03 10-03 Oral, ity of M20) tablet 14:45: 15:21 ONCE, 1 [place] 40 mEq 00 :00 dose, On Medical [place] Branch 01/06/21 at 0945, Routine melatonin 2020-04 Yes 3mg 3 mg, Univers (MELATIN) 0-03 Oral, QHS, ity of tablet 3 mg 05:45: First dose [place] 00 (after Medical last Branch modificati on) on 01/06/21 at 0045, Until Discontinu ed, Routine magnesium 2020-04 2g 2 g, IV Univ ers sulfate in 001-05 Piggyback, it y of water 2 16:00: 15:45 ONCE, 1 [place] gram/50 mL 00 :00 dose, On Medic al (4 %) Sat Branch infusion 2 01/05/21 at g 1100, Routine KCL 2020-04 No 20meq 20 mEq, Univers (KLOR-CON 001-05 Oral, ity of M20) tablet 16:00: 15:42 ONCE, 1 [place] 20 mEq 00 :00 dose, On Medical Sat Branch 01/05/21 at 1100, Routine acetaZOLAMI 2020-04 No 500mg 500 mg, U nivers DE (DIAMOX) 001-05 Slow IV ity of injection 16:00: 15:43 Push, [place] 500 mg 00 :00 ONCE, 1 Medical dose, On Branch 01/05/21 at 1100, Routine spironolact 2020-04 Yes 50mg 50 mg, Univ ers one 0 Oral, ity of (ALDACTONE) 15:00: DAILY, [place] tablet 50 00 First dose Medi ernie mg on Sat Branch 01/05/21 at 1000, Until Discontinu ed, Routine metOLazone 2020-04 Yes 2.5mg 2.5 mg, Uni vers (ZAROXOLYN) 0 Oral, ity of tablet 2.5 15:00: DAILY, [place] mg 00 First dose Medical on Sat Branch 01/05/21 at 1000, Until Discontinu ed, Routine methylPREDN 2020-04 No 60mg 60 mg, Uni vers ISolone sod 001-08 Slow IV ity of succ 03:00: 19:47 Push, Q8H, [place] (SOLU-MEDRO 00 :19 First dose Me dical L (PF)) (after Branch injection last 60 mg modificati on) on Thu01/04/21 at 2200, Until Discontinu ed, Routine furosemide 2020-04 No 80mg 80 mg, Univ ers (LASIX) 001-06 Slow IV ity of injection 01:00: 14:20 Push, [place] 80 mg 00 :17 Q12H, Medical First dose Branch on Thu01/04/21 at 2000, Until Discontinu ed, Routine enoxaparin 2020-04 Yes 40mg 40 mg, Unive rs (LOVENOX) 0- Subcutaneo ity of injection 22:00: us, DAILY, [place] 40 mg 00 First dose Medical on Thu Branch 01/04/21 at 1700, Until Discontinu ed, Routine carvediloL 2020-04 No 3.125mg 3.125 mg, Univers (COREG) 001-06 Oral, BID ity of tablet 22:00: 17:44 MEALS, [place] 3.125 mg 00 :59 First dose Medic al on Thu Branch 01/04/21 at 1700, Until Discontinu ed, Routine ipratropium 2020-04 Yes 3mL 3 mL, Unive rs -albuteroL 0 Inhalation ity of (DUONEB) 21:00: , QID, [place] 0.5 mg-3 00 First dose Medic al mg(2.5 mg on Thu base)/3 mL 01/04/21 at nebulizer 1600, solution 3 Until mL Discontinu ed, Routine azithromyci 2020-04 No 500mg 500 mg, U nivers n 0-01-06 Oral, ity of (ZITHROMAX) 19:45: 13:10 DAILY, 3 [place] tablet 500 00 :00 doses, Medical mg First dose Branch on Thu01/04/21 at 1445, Last dose on Thu01/06/21 at 0900, RONI
Re ason for Anti-Infec tive: Empiric Therapy for Suspected Infection< br>Empiric Therapy Site: Respirator y
Durat ion of therapy: 72 hours cefTRIAXone 2020-04 No 1000mg 1,000 mg, Univers (ROCEPHIN) 001-08 IV ity of 1,000 mg in 19:15: 19:45 Piggyback, [place] NaCl 0.9% 00 :54 Q24H ABX, Medic al (NS) 50 mL First dose Bra nch MINI-BAG on Thu01/04/21 at 1415, Until Discontinu ed, Administer over 30 Minutes, 50 mL
Reas on for Anti-Infec tive: Documented Infection< br>Documen marialuisa Infection Site: Respirator y
Durat ion of Therapy: 7 days sildenafil 2020-04 Yes 20mg 20 mg, Unive rs (REVATIO) 0 Oral, TID, ity of tablet 20 19:00: First dose [place] mg 00 on [facility] [place] [facility] Medical 01/04/21 at Branch 1400, Until Discontinu ed, Routine ondansetron 2020-04 Yes 4mg 4 mg, Slow Univers (ZOFRAN 0 IV Push, ity of (PF)) 17:33: Q6HPRN, [place] injection 4 55 Starting Medi ernie mg on [facility] [place] [facility] Branch 01/04/21 at 1233, Until Discontinu ed, Routine, Nausea and Vomiting (N/V) acetaminoph 2020-04 Yes 650mg 650 mg, Un bobby en 0 Oral, ity of (TYLENOL) 17:33: Q6HPRN, [place] tablet 650 47 Starting Medic al mg on Thu Branch 01/04/21 at 1233, Until Discontinu ed, Routine, Pain (scale 1-3) levoFLOXaci 2020-04 No 750mg 750 mg, IV Univers n in D5W 001-04 Piggyback, ity of (LEVAQUIN) 14:00: 15:21 ONCE, 1 [place] 750 mg/150 00 :00 dose, On Medic al mL [facility] [place] [facility] Branch Piggyback 01/04/21 at 750 mg 0900, Administer over 90 Minutes, 150 mL
R norah for Anti-Infec tive: Empiric Therapy for Suspected Infection< br>Empiric Therapy Site: Respirator y
Durat ion of therapy: 72 hours methylpredn 2020-04 No 125mg 125 mg, U nivers isolone sod 001-04 Slow IV ity of succ 14:00: 13:50 [facility], [place] (SOLU-MEDRO 00 :00 ONCE, 1 Medic al L) dose, On Branch injection Fri 125 mg 01/04/21 at 0900, STAT amoxicillin 2019-04- No 500mg 500 mg, U nivers (TRIMOX) 04-18 Oral, ity of capsule 500 02:30: 01:28 ONCE, 1 [place] mg 00 :00 dose, [facility] 02/16/20 Branch at 2030, RONI
Re ason for Anti-Infec tive: Documented Infection< br>Documen marialuisa Infection Site: HEENT
D uration of Therapy: 10 days maalox:diph 2019-04 2020- No 15mL 15 mL, Uni vers enhydrAMINE -13 02-16 Oral, ity of :lidocaine 02:30: 01:26 ONCE, 1 [place] 2 % viscous 00 :00 dose, Deepika Med ical 1:1:1 02/16/20 Branch (FIRST-MOUT at 2029, [facility]) Routine oral suspension 15 mL albuterol 2019-04 Yes 2.5mg Inhale 2.5 U nivers 2.5 mg /3 1-13 mg every 4 ity of mL (0.083 01:11: (four) [place] %) 16 hours as Medical nebulizer needed for Bran ch solution Wheezing or Shortness of Breath. pantoprazol 2019-04 Yes 40mg Take 40 mg Univers e 40 mg EC 1-13 by mouth ity o f tablet 01:11: daily. [address] MULTIVITAMI 2019-04 Yes Take by Un bobby N ORAL -13 mouth ity of 01:11: daily. [address] ALPRAZolam 2019- Yes .25mg Take 0.25 U nivers 0.25 mg 1-13 mg by ity of tablet 01:11: mouth 2 [place] [id number] (two) Medical times Branch daily. carvedilol 2019-04 Yes 3.125mg Take 3.125 Univers 3.125 mg 1-13 mg by ity of tablet 01:11: mouth 2 [place] [address] (two) Medical times [place] daily with meals. spironolact 2019-04 Yes Take by Un bobby one 25 mg/5 1-13 mouth 2 ity o f mL oral 01:11: (two) [place] suspension 16 times Medical daily. Branch albuterol 2019-04 Yes 2.5mg Inhale 2.5 U nivers 2.5 mg /3 1-13 mg every 4 ity of mL (0.083 01:11: (four) [place] %) 16 hours as Medical nebulizer needed for Bran ch solution Wheezing or Shortness of Breath. pantoprazol 2019-04 Yes 40mg Take 40 mg Univers e 40 mg EC 1-13 by mouth ity o f tablet 01:11: daily. [address] MULTIVITAMI 2019-04 Yes Take by Un bobby N ORAL 1-13 mouth ity of 01:11: daily. [address] ALPRAZolam 2019- Yes .25mg Take 0.25 U nivers 0.25 mg 1-13 mg by ity of tablet 01:11: mouth 2 [place] [address] (two) Medical times Branch daily. carvedilol 2019-04 Yes 3.125mg Take 3.125 Univers 3.125 mg 1-13 mg by ity of tablet 01:11: mouth 2 [place] [address] (two) Medical times [place] daily with meals. spironolact 2019-04 Yes Take by Un bobby one 25 mg/5 1-13 mouth 2 ity o f mL oral 01:11: (two) [place] suspension 16 times Medical daily. Branch nystatin 2019-04 Yes [id number] Apply to Univers 100,000 1-12 area(s) 3 ity of unit/gram 00:00: (three) [place] powder 00 times Medical daily. Branch nystatin 2019-04 Yes [id number] Apply to Univers 100,000 1-12 area(s) 3 ity of unit/gram 00:00: (three) [place] powder 00 times Medical daily. Branch nystatin 2019-04- No [id number] Apply to Univers 100,000 1-12 10-08 area(s) 3 ity of unit/gram 00:00: 00:00 (three) [place] powder 00 :00 times Medical daily. Branch amoxicillin 2019-04- No [id number] 500mg Take 1 Univers 500 mg - 11-23 capsule by ity of capsule 00:00: 05:59 mouth 3 [place] 00 :00 (three) Medical times [place] daily for 10 days. amoxicillin 2019-04 2020- No [id number] 500mg Take 1 Univers 500 mg 1-12 11-23 capsule by ity of capsule 00:00: 05:59 mouth 3 [place] 00 :00 (three) Medical times [place] daily for 10 days. fluconazole 2019-04 2020- No [id number] 150mg Take 1 Univers 150 mg 1-12 11-15 tablet by ity of tablet 00:00: 05:59 mouth [place] 00 :00 daily for Medical 2 doses. Branch fluconazole 2019-04- No [id number] 150mg Take 1 Univers 150 mg 1-12 11-15 tablet by ity of tablet 00:00: 05:59 mouth [place] 00 :00 daily for Medical 2 doses. Branch traMADol 2018-04 Yes [id number] 50mg Take 1 Univers (ULTRAM) 50 1-14 105 tablet by ity of mg tablet 00:00: mouth [place] 00 every 8 Medical (eight) Branch hours as needed for Pain (scale 4-6). traMADol 2018-04 Yes [id number] 50mg Take 1 Univers (ULTRAM) 50 1-14 105 tablet by ity of mg tablet 00:00: mouth [place] 00 every 8 Medical (eight) Branch hours as needed for Pain (scale 4-6). traMADol 2018-04 No [id number] 50mg Take 1 Univers (ULTRAM) 50 1-14 10-08 105 tablet by it y of mg tablet 00:00: 00:00 mouth [place] 00 :00 every 8 Medical (eight) Branch hours as needed for Pain (scale 4-6). metOLazone 2017-04 Yes 2.5mg Take 1 Univ ers 2.5 mg 0-22 tablet by ity of tablet 00:00: mouth [place] 00 every Medical Thursday. Branch KCL 20 mEq 2017-04 Yes 40meq Take 2 Univ ers tablet 0-22 tablets by ity of 00:00: mouth [place] 00 every Medical Thursday. Branch metOLazone 2017-04 Yes 2.5mg Take 1 Univ ers 2.5 mg 0-22 tablet by ity of tablet 00:00: mouth [place] 00 every Medical Thursday. [place] KCL 20 mEq 2017-04 Yes 40meq Take 2 Univ ers tablet 0-22 tablets by ity of 00:00: mouth [place] 00 every Medical Thursday. Branch metOLazone 2017-04 Yes 2.5mg Take 1 Univ ers 2.5 mg 0-22 tablet by ity of tablet 00:00: mouth [place] 00 every Medical Thursday. [place] KCL 20 mEq 2017-04 Yes 40meq Take 2 Univ ers tablet 0-22 tablets by ity of 00:00: mouth [place] 00 every Medical Thursday. Branch metOLazone 2017-04- No 2.5mg Take 1 Uni vers 2.5 mg 0-22 10-08 tablet by ity of tablet 00:00: 00:00 mouth [place] 00 :00 every Medical Thursday. Branch KCL 20 mEq 2017-04- No 40meq Take 2 Uni vers tablet 0-22 10-08 tablets by ity of 00:00: 00:00 mouth [place] 00 :00 every Medical Thursday. Branch spironolact 2017-04 Yes Take by Un bobby one 25 mg/5 0-18 mouth 2 ity o f mL oral 16:48: (two) [place] suspension 51 times Medical daily. Branch carvedilol 2017-04 Yes 3.125mg Take 3.125 Univers 3.125 mg 0-18 mg by ity of tablet 16:48: mouth 2 [place] 35 (two) Medical times Branch daily with meals. ALPRAZolam 2017-04 Yes .25mg Take 0.25 U nivers 0.25 mg 0-18 mg by ity of tablet 16:45: mouth 2 [place] 44 (two) Medical times Branch daily. albuterol 2017-04 Yes 2.5mg Inhale 2.5 U nivers 2.5 mg /3 0-18 mg every 4 ity of mL (0.083 16:42: (four) [place] %) 07 hours as Medical nebulizer needed for Bran ch solution Wheezing or Shortness of Breath. FLUTICASONE 2017-04 Yes Inhale. Uni vers /VILANTEROL 0-18 ity of (BREO 16:42: [place] ELLIPTA 07 Medical INHALE) Branch traMADOL 50 2017-04 Yes 50mg Take 50 mg Univers mg tablet 0-18 by mouth ity of 16:42: every 8 [place] 07 (eight) Medical hours as Branch needed for Pain (scale 4-6). pantoprazol 2017-04 Yes 40mg Take 40 mg Univers e 40 mg EC 0-18 by mouth ity o f tablet 16:42: daily. 07 Medical Branch fluticasone 2017-04 Yes Use in Uni vers 50 0-18 each ity of mcg/actuati 16:42: nostril [place] as on nasal 07 daily. Medical spray Branch MULTIVITAMI 2017-04 Yes Take by Un bobby N ORAL 0-18 mouth ity of 16:42: daily. Medical Branch FLUTICASONE 2017-04 Yes Inhale. Uni vers /VILANTEROL 0-18 ity of (BREO 16:42: [place] ELLIPTA 07 Medical INHALE) Branch fluticasone 2017-04 Yes Use in Uni vers 50 0-18 each ity of mcg/actuati 16:42: nostril [place] as on nasal 07 daily. Medical spray Branch FLUTICASONE 2017-04 Yes Inhale. Uni vers /VILANTEROL 0-18 ity of (BREO 16:42: [place] ELLIPTA 07 Medical INHALE) Branch fluticasone 2017-04 Yes Use in Uni vers 50 0-18 each ity of mcg/actuati 16:42: nostril [place] as on nasal 07 daily. Medical spray Branch losartan 50 2016-04 Yes 50mg Take 1 Univ ers mg tablet 1-27 tablet by ity o f 00:00: mouth [place] 00 daily. Medical Branch furosemide 2016-04 Yes 80mg Take 1 Unive rs (LASIX) 80 1-27 tablet by ity of mg tablet 00:00: mouth [place] 00 every Medical morning Branch and evening. losartan 50 2016-04 Yes 50mg Take 1 Univ ers mg tablet 1-27 tablet by ity o f 00:00: mouth [place] 00 daily. Medical Branch furosemide 2016-04 Yes 80mg Take 1 Unive rs (LASIX) 80 1-27 tablet by ity of mg tablet 00:00: mouth [place] 00 every Medical morning Branch and evening. losartan 50 2016-04 Yes 50mg Take 1 Univ ers mg tablet 1-27 tablet by ity o f 00:00: mouth [place] 00 daily. Medical Branch furosemide 2016-04 Yes 80mg Take 1 Unive rs (LASIX) 80 1-27 tablet by ity of mg tablet 00:00: mouth [place] 00 every Medical morning Branch and evening. losartan 50 2016-04- No 50mg Take 1 Uni vers mg tablet 1-27 10-08 tablet by ity of 00:00: 00:00 mouth [place] 00 :00 daily. Medical Branch furosemide 2016-04- No 80mg Take 1 Univ ers (LASIX) 80 1-27 10-08 tablet by ity of mg tablet 00:00: 00:00 mouth [place] 00 :00 every Medical morning Branch and evening. Alprazolam Alprazolam Yes [place] [address] [facility] [facility] Sildenafil Sildenafil Yes Perez [address] [facility] Citrate Citrate [facility] HydrOXYzine HydrOXYzine Yes Perez [address] [facility] Pamoate Pamoate Vera as needed [facility] Aspir-81 Aspir-81 Yes Perez [address] [facility] Durezol Durezol Yes [facility] Ventolin Ventolin Yes Perez [address] [facility] HFA HFA [facility] needed [facility] Carvedilol Carvedilol Yes Perez as C [facility] directed [facility] Carvedilol Carvedilol Yes Perez [address] [facility] Tramadol Tramadol Yes Perez take [address] [facility] HCl HCl [facility] Besivance Besivance Yes Perez [address] [facility] Spiriva Spiriva Yes Perez [address] HandiHaler HandiHaler Vera Jennifer [facility] Citalopram Citalopram Yes Perez TAKE [...] [facility] Potassium Potassium Yes Perez [address] [facility] Chloride Chloride Vera with food [facility] Breo Breo 2020- No Perez [address] [facility] Ellipta Ellipta -31 Vera [facility] Immunizations Ordered Filled Immunization Date Status Comments Sour e Immunization Name Name Influenza Virus 2018-12-14 Completed Univers[facility] y of Vaccine 00:00:00 [facility] Td 2017-05-20 Completed [facility] of 00:00:00 [facility] Td 2017-05-20 Completed University of 00:00:00 [facility] Td 2017-05-20 Completed University of 00:00:00 [facility] Td 2017-05-20 Completed [facility] of 00:00:00 [facility] Vital Signs Vital Name Observation Time Observation Value Comments Source Heart rate 2021-01-11 17:00:00 66 /min Universi [facility] Oxygen saturation in 2021-01-11 17:00:00 89 /min [facility] Arterial blood by [facility] Pulse oximetry Branch Systolic blood 2021-01-11 16:53:00 132 mm[Hg] Univer sity of pressure [facility] Diastolic blood 2021-01-11 16:53:00 68 mm[Hg] Unive rsity of [facility] Body temperature 2021-01-11 16:53:00 37.11 Priscila [facility] Respiratory rate 2021-01-11 16:53:00 16 /min [facility] Body weight 2021-01-05 17:00:00 117.7 kg Universi [facility] BMI 2021-01-05 17:00:00 50.68 kg/m2 [facility] Body height 2021-01-04 13:30:00 152.4 cm [facility] Systolic blood 2020-02-17 01:18:00 113 mm[Hg] Univer sity of [facility] Diastolic blood 2020-02-17 01:18:00 45 mm[Hg] [facility] Heart rate 2020-02-17 01:18:00 101 /min [facility] Respiratory rate 2020-02-17 01:18:00 19 /min [facility] Oxygen saturation in 2020-02-17 01:18:00 96 /min [facility] Arterial blood by [facility] Pulse oximetry [place] Body temperature 2020-02-17 00:58:00 37.33 Priscila [facility] Body height 2020-02-17 00:58:00 152.4 cm [facility] Body weight 2020-02-17 00:58:00 132.904 kg [facility] BMI 2020-02-17 00:58:00 57.22 kg/m2 [facility] Procedures Procedure Date / Time Performing Clinician Source Performed POCT GLUCOSE (AUTOMATED) 2021-01-11 16:53:00 Kishore Gaytan [facility] POCT GLUCOSE (AUTOMATED) 2021-01-11 12:48:00 Kishore Gaytan [facility] BASIC METABOLIC PANEL 2021-01-11 08:15:00 Jacque Avitia [facility] (NA, K, CL, CO2, GLUCOSE, Medica l Branch BUN, CREATININE, CA) POCT GLUCOSE (AUTOMATED) 2021-01-11 02:55:00 [place], Kishore [facility] POCT GLUCOSE (AUTOMATED) 2021-01-10 22:13:00 [place]) 2021-01-10 20:53:00 [place] PO[facility] (AUTOMATED) 2021-01-10 16:25:00 [place], [facility] PO[facility] GLUCOSE (AUTOMATED) 2021-01-10 14:24:00 [place], [facility] POCT GLU[facility]SE (AUTOMATED) 2021-01-10 12:34:00 [place], Kishore [facility] BASIC METABOLIC PANEL 2021-01-10 09:31:00 Jacque Avitia [facility] (NA, K, CL, CO2, GLUCOSE, Medica l Branch BUN, CREATININE, CA) CBC WITH DIFF 2021-01-10 09:31:00 Jacque Avitia [facility] POCT GLUCOSE (AUTOMATED) 2021-01-10 02:34:00 [place], [facility] POCT GLUCOSE (AUTOMATED) 2021-01-10 01:13:00 [place], Kishore [facility] POCT GLUCOSE (AUTOMATED) 2021-01-09 20:58:00 [place], Kishore [facility] POCT GLUCOSE (AUTOMATED) 2021-01-09 16:40:00 [place], Kishore [facility] POCT GLUCOSE (AUTOMATED) 2021-01-09 12:51:00 [place], Kishore [facility] POCT GLUCOSE (AUTOMATED) 2021-01-09 09:53:00 [place], Kishore [facility] BASIC METABOLIC PANEL 2021-01-09 09:50:00 Jacque Avitia [facility] (NA, K, CL, CO2, GLUCOSE, Medica l Branch BUN, CREATININE, CA) EXTRA TUBE LAV 2021-01-09 09:50:00 Carlos Douglas [facility] POCT GLUCOSE (AUTOMATED) 2021-01-09 05:06:00 [place], [facility] POCT GLUCOSE (AUTOMATED) 2021-01-08 23:07:00 MoulinKishore [facility] POCT GLUCOSE (AUTOMATED) 2021-01-08 20:45:00 [place] [facility] POCT GLUCOSE (AUTOMATED) 2021-01-08 17:10:00 MoulinKishore [facility] MAGNESIUM 2021-01-08 10:06:00 Jacque Avitia [facility] BASIC METABOLIC PANEL 2021-01-08 10:06:00 Jacque Avitia [facility] (NA, K, CL, CO2, GLUCOSE, Medica l Branch BUN, CREATININE, CA) CBC WITH DIFF 2021-01-08 10:05:00 Jacque Avitia [facility] TRANSTHORACIC ECHO (TTE) 2021-01-06 17:17:00 Beth Gonsalez [facility] COMPLETE W/ CONTRAST Medical [facility] XR CHEST 1 VW 2021-01-06 13:44:08 Beth Gonsalez [facility] MAGNESIUM 2021-01-06 07:42:00 Ezpierre [facility] BASIC METABOLIC PANEL 2021-01-06 07:42:00 Sierra [facility] (NA, K, CL, CO2, GLUCOSE, Medica l Branch BUN, CREATININE, CA) CBC WITH DIFF 2021-01-06 07:42:00 Sierra [facility] GLYCOSYLATED HEMOGLOBIN 2021-01-06 07:42:00 Jacque Avitia [facility] (A1C) [facility] AC PANEL 20 + LACTIC ACID 2021-01-05 09:35:00 Rodolfo Esquivel [facility] MAGNESIUM 2021-01-05 09:34:00 Sierra [facility] BASIC METABOLIC PANEL 2021-01-05 09:34:00 Sierra [facility] (NA, K, CL, CO2, GLUCOSE, Medica l Branch BUN, CREATININE, CA) CBC WITH DIFF 2021-01-05 09:34:00 Sierra [facility] N-TERMINAL PRO-BNP 2021-01-05 09:34:00 Abu Wallace [facility] PROCALCITONIN 2021-01-05 09:34:00 Talia Duarte [facility] CT THORAX WO CONTRAST 2021-01-04 23:07:47 Talia Duarte [facility] AC PANEL 20 + LACTIC ACID 2021-01-04 19:56:00 Talia Duarte [facility] MRSA / MSSA SCREEN BY 2021-01-04 19:45:00 Talia Duarte [facility] PCR, [facility] ACUTE CARE ARTERIAL BLOOD 2021-01-04 12:27:00 Bradley Zaldivar i [facility] COVID-19 (MOLECULAR 2021-01-04 12:13:00 Ritika Zaldivar [facility] TESTING [facility] NUCLEIC ACID AMPLIFICATION) LAB ONLY COVID 2021-01-04 12:13:00 Ritika Zaldivar [facility] INTERPRETATION [facility] URINALYSIS 2021-01-04 12:11:00 Ritika Zaldivar [facility] XR CHEST 1 VW 2021-01-04 11:34:36 Ritika Zaldivar [facility] COVID-19 (ID NOW RAPID 2021-01-04 11:28:00 Ritkia Zaldivar [facility] TESTING) Medical Branch LAB ONLY COVID 2021-01-04 11:28:00 Ritika Zaldivar [facility] INTERPRETATION [facility] TROPONIN I 2021-01-04 11:27:00 Ritika Zaldivar [facility] COMP. METABOLIC PANEL 2021-01-04 11:27:[address] [facility] ([id number]) Medical Branch CBC WITH DIFF 2021-01-04 11:27:00 Ritika Zaldivar [facility] N-TERMINAL PRO-BNP 2021-01-04 11:27:00 Ritika Zaldivar [facility] acute [facility] PROCALCITONIN 2021-01-04 11:27:00 Ritika Zaldivar [facility] CONSENT/REFUSAL FOR 2020-02-17 00:43:33 Doctor Unassigned, [facility] AND TREATMENT Name [facility] NOTICE OF PRIVACY 2020-02-17 00:43:14 Doctor Unassigned, No Univ [facility] PRACTICES Name [facility] MEDICATION CORRESPONDENCE 2018-11-02 05:01:00 Doctor Unassigned, No [facility] Encounters Start End Encounter Admission Attending Care Care Encounter Source Date/Time Date/Time Type Type Clinicians Facility Department ID 2021-02-05 Emergency [facility] [id number] Univers 02:56:31 ity [facility] 2021-02-02 Emergency [facility] [id number] [facility] 2021-02-13 2021-02-13 ambulatory [facility] [id number] [facility] 2021-02-07 2021-02-07 ambulatory [facility] [id number] [facility] 2021-02-07 2021-02-07 ambulatory [facility] [id number] [facility] 2021-02-07 2021-02-07 ambulatory [facility] [id number] [facility] 2021-01-28 2021-01-28 Outpatient [facility] [id number] [facility] 2021-01-25 2021-01-25 Outpatient [facility] [id number] [facility] 2021-01-23 2021-01-23 Outpatient [facility] [id number] [facility] 2021-01-18 2021-01-18 Outpatient [facility] [id number] [facility] 2021-01-11 2021-01-17 Inpatient [facility] [id number] 00:00:00 00:00:[address] [facility] 2021-01-16 2021-01-16 [id number] 2021-01-04 2021-01-11 [facility] Ritika Zaldivar [facility] [id number] [facility] 06:09:00 15:41:00 Encounter Ashlie Faustice [facility] [id number] itKishore Cason [id number] Carlos Vasquez [id number] [address] ([facility]) 2020-12-25 2020-12-25 [facility] [id number] [facility] 2020-12-06 2020-12-06 [facility] [id number] [facility] 2020-11-08 2020-11-08 [facility] [id number] [facility] 2020-11-05 2020-11-05 [facility] [id number] [facility] 2020-10-10 2020-10-10 [facility] [id number] [facility] 2020-09-26 2020-09-26 [facility] [id number] [facility] 2020-09-25 2020-09-25 [id number] [facility] 2020-09-202020-09-20 Outpatient [facility] [id number] [facility] 2020-09-18 2020-09-18 Outpatient [facility] [id number] [facility] 2020-09-05 2020-09-05 Outpatient [facility] [id number] [facility] 2020-05-31 2020-05-31 Outpatient [facility] [id number] [facility] 2020-05-29 2020-05-29 Outpatient [facility] [id number] [facility] 2020-05-24 2020-05-24 Outpatient [facility] [id number] [facility] 2020-05-08 2020-05-08 Outpatient [facility] [id number] [facility] 2020-05-08 2020-05-08 Outpatient [facility] [id number] [facility] 2020-03-05 2020-03-05 Outpatient [facility] [id number] [facility] 2020-02-20 2020-02-20 Outpatient [facility] [id number] [facility] 2020-02-17 2020-02-17 Outpatient [facility] [id number] [facility] 2020-02-17 2020-02-17 Mansi Harkins [id number] Univers 00:00:00 00:00:00 (Out) ROLAN [id number] it y [facility] [id number] Louie [id number] [facility] 019 Branch 2020-02-16 2020-02-16 Emergency Tamie Townsend [facility] [id number] Univers 18:59:00 19:42:00 Melida Sanderson [id number] i ty [facility] [id number] [facility] [id number] [place] [id number] Branch 2020-01-26 2020-01-26 [facility] [id number] [facility] 2020-01-20 2020-01-20 [facility] [id number] [facility] 2019-10-20 2019-10-20 [facility] [id number] 13:45:00 13:45:00 t [place] [employer] [employer] Luke s - Drive [facility] Family Medicine l Medicine Outpati ent Clinics 2019-09-20 2019-09-20 [facility] [id number] 15:15:00 15:15:00 t [place] [employer] Luke s - Drive [facility] Family Medicine l Medicine Outpati ent Clinics 2019-05-12 2019-05-12 [facility] [id number] 11:00:00 11:00:[address] Luke s - Drive [facility] Family Medicine l Medicine Outpati ent Clinics 2019-05-04 2019-05-04 [facility] [id number] 16:41:00 16:41:[address] Luke s - Drive [facility] Family Medicine l Medicine Outpati ent Clinics 2019-04-19 2019-04-19 [facility] [id number] 16:43:00 16:43:00 t [place] [employer] Luke s - Drive [facility] Family Medicine l Medicine Outpati ent Clinics 2019-02-21 2019-02-21 [facility] [id number] 08:45:00 08:45:00 t [place] [employer] Luke s - Drive [facility] Medicine Outpati ent Clinics 2019-02-17 2019-02-17 [facility] [id number] 10:11:00 10:11:00 t [place]s [employer] Luke s - Drive [facility] Medicine Outpati ent Clinics 2019-02-14 2019-02-14 [facility] [id number] [facility] 16:38:00 16:38:00 t Downs [employer] s - Drive [facility] Medicine Outpati ent Clinics 2019-02-07 2019-02-07 [facility] [id number] 10:00:00 10:00:00 t Bone Bone and [facility] Joint [facility] [place] ent Clinics 2018-12-31 2018-12-31 [facility] [id number] 11:29:00 11:29:00 t Downs [employer] s - Drive [facility] Medicine Outpati ent Clinics 2018-12-24 2018-12-24 [facility] [id number] 10:19:00 10:19:00 t Downs [employer] s - Drive [facility] Medicine Outpati ent Clinics 2018-12-23 2018-12-23 [facility] [id number] 08:53:00 08:53:00 t Downs [employer] s - Drive [facility] Medicine Outpati ent Clinics 2018 2018 [facility] [id number] 08:30:00 08:30:00 t Downs [employer] s - Drive [facility] Medicine Outpati ent Clinics 2018-12-20 2018-12-20 [facility] [id number] 16:22:00 16:22:00 t Downs [employer] s - Drive [facility] Medicine Outpati ent Clinics 2018-12-20 2018-12-20 [facility] [id number] 13:42:00 13:42:00 t Downs Down[employer] s - Drive [facility] Medicine Outpati ent Clinics 2018-12-09 2018-12-16 Inpatient [place] [id number] [address] [place] [address] 00:00:00 00:00:00 ZOFIA [facility] 2018-12-14 2018-12-14 [facility] [id number] 14:52:00 14:52:00 t Downs Down[facility] [employer] Luke s [facility] 2018-12-14 2018-12-14 [facility] [id number] 14:13:00 14:13:[address] [facility] s [facility] Outpati ent Clinics 2018-12-02 2018-12-02 [facility] [id number] 13:53:00 13:53:00 t Downs [employer] [facility] 2018-11-02 2018-11-02 [facility] [id number] 16:37:00 16:37:00 [facility] s [facility] 2018-11-02 2018-11-02 Orders Doctor QUEENIE [id number] 00:00:00 00:00:00 Only Unassigned, ROLAN [id number] [place] [facility] [id number] [facility] 2018-11-02 2018-11-02 Orders Doctor QUEENIE [id number] [facility] 00:00:00 00:00:00 Only Unassigned, ROLAN [id number] ity of [place] [facility] [id number] Louie as [id number] [address] 2018-10-27 2018-10-27 [facility] [id number] 13:31:00 13:31:00 t Downs [employer] [facility] 2018-10-13 2018-10-13 [facility] [id number] 13:30:00 13:30:[address] [facility] s [facility] Outpati ent [facility] 2018-09-28 2018-09-28 [facility] [id number] 10:13:00 10:13:[address] Luke s - Drive [facility] Medicine l Medicine Outpati ent Clinics 2018-09-15 2018-09-15 [facility] [id number] 13:49:00 13:49:[address] Luke s - Drive [facility] Medicine l Medicine Outpati ent Clinics 2018-08-11 2018-08-11 [facility] [id number] 08:00:00 08:00:[address] Luke s - Drive [facility] Medicine l Medicine Outpati ent Clinics 2018-08-03 2018-08-03 [facility] [id number] 15:36:00 15:36:[address] Luke s - Drive [facility] Medicine Outpati ent Clinics 2018-07-23 2018-07-23 [facility] [id number] 10:31:00 10:31:[address] Luke s - Drive [facility] Medicine Outpati ent Clinics 2018-07-21 2018-07-21 [facility] [id number] 14:46:00 14:46:[address] Luke s - Drive [facility] Medicine Medicine Outpati ent Clinics 2018-07-14 2018-07-14 [facility] [id number] 16:45:00 16:45:[address] Luke s - Drive [facility] Medicine l Medicine Outpati ent Clinics 2018-07-01 2018-07-01 [facility] [id number] 09:58:00 09:58:[address] Luke s - Drive [facility] Medicine l Medicine Outpati ent Clinics 2018-06-17 2018-06-17 [facility] [id number] 16:00:00 16:00:[address] Luke s - Drive [facility] Medicine Medicine Outpati ent Clinics 2018-06-10 2018-06-10 [facility] [id number] 15:56:00 15:56:[address] Luke s - Drive [facility] Medicine l Medicine Outpati ent Clinics 2018-06-08 2018-06-08 [facility] [id number] 10:30:00 10:30:[address] Luke s - Drive [facility] Family Medicine l Medicine Outpati ent Clinics 2018-05-31 2018-05-31 [facility] [id number] 14:12:00 14:12:[address] Luke s - Drive [facility] Medicine l Medicine Outpati ent Clinics 2018-05-27 2018-05-27 [facility] [id number] 11:15:00 11:15:00 t Downs [employer] Luke s - Drive [facility] Family Medicine l Medicine Outpati ent Clinics 2018-04-22 2018-04-22 [facility] [id number] 11:00:00 11:00:00 t Downs [employer] s - Drive [facility] Medicine l Medicine Outpati ent Clinics 2018-04-07 2018-04-07 [facility] [id number] 11:30:00 11:30:00 t Downs Downs [employer] s - Drive [facility] Medicine l Medicine Outpati ent Clinics 2018-01-14 2018-01-14 [facility] [id number] 10:30:00 10:30:00 t Downs [employer] s - Drive [facility] Medicine l Medicine Outpati ent Clinics 2018-01-11 2018-01-11 [facility] [id number] [facility] 15:55:00 15:55:00 t Downs [employer] s - Drive [facility] Medicine l Medicine Outpati ent Clinics 2017-11-18 2017-11-18 [facility] [id number] 15:30:00 15:30:00 t Downs Downs [employer] s - Drive [facility] Medicine l Medicine Outpati ent Clinics 2017-10-19 2017-10-19 [facility] [id number] [facility] 16:08:00 16:08:00 t Downs [employer] s - Drive [facility] Medicine l Medicine Outpati ent Clinics 2017-10-15 2017-10-15 [facility] [id number] 10:30:00 10:30:00 t Downs [employer] s - Drive [facility] Medicine l Medicine Outpati ent Clinics 2017-07-09 2017-07-09 Outpatient Elina Antoinet [id number] [facility] 10:39:00 10:39:00 [facility] 2017-07-01 2017-07-01 [facility] [id number] [facility] 11:00:00 11:00:00 [facility] Results Test Description Test Time Test Comments Results Result Comments Source SARS-CoV-2 (COVID-19) RNA [Presence] in Respiratory sp ecimen by 2021-01-12 00:45:23 DANNA with probe detection Test Item Value Reference Range Interpretation Comme nts SARS-CoV-2 (COVID-19) RNA [Presence] in Respiratory Not detected No t-Detected specimen by DANNA with probe detection (test code = 96859-0) 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 (test code = 73236-9) Whether the patient has symptoms related to condition of interest (test code = 27088-6) Patient was hospitalized because of this condition (test code = 23128-0) Whether the patient was admitted to intensive care unit (ICU) for condition of interest (test code = 60062-2) Whether patient resides in a congregate care setting (test code = 24248-8) POCT GLUCOSE (AUTOMATED)2021-01-11 16:55:14 Test Item Value Reference Range Interpretation Comments POCT GLU (test code = 5722836837) 352 mg/dL 70-110 H Lab Interpretation (test code = Abnormal 49452-1) [facility] 12:56:10 Test Item Value Reference Range Interpretation Comments POCT GLU (test code = 7166658585) 234 mg/dL 70-110 H Lab Interpretation (test code = Abnormal 02337-7) [facility] (NA, K, CL, CO2, GLUCOSE, BUN, CREATININE, CA)2021-01-11 08:58:24 Test Item Value Reference Range Interpretation Comments NA (test code = 132 mmol/L 135-145 L 8252739922) K (test code = 5.4 mmol/L 3.5-5.0 H Slight 3518756316) hemolysis CL (test code = 91 mmol/L 98-108 L 7903506329) CO2 TOTAL (test code 36 mmol/L 23-31 H = 7460892102) AGAP (test code = 2-16 8983086171) BUN (test code = 45 mg/dL 7-23 H Slight 7972807834) hemolysis GLUCOSE (test code = 232 mg/dL 70-110 H 5099570529) CREATININE (test code 0.49 mg/dL 0.50-1.04 L = 6000278906) CALCIUM (test code = 8.7 mg/dL 8.6-10.6 9700249940) eGFR (test code = mL/min/1.73m2 7098726483) RANDOLPH (test code = RANDOLPH) Association of Glomerular Filtration Rate (GFR) and Staging of Kidney Disease* + -----+ --------+ +| GFR (mL/min/1.73 m2) ?| With Kidney Damage ?| ?Without Kidney Damage+ +------- +---- --+| ?>90 ?| ?Stage one ?| ? Normal ?+ ------+ ---------+--------- +| ?60-89 ?| ?Stage two ?| ? Decreased GFR ? + -----+ --------+ +| ?30-59 ?| ?Stage three ?| ? Stage three ? + -----+ --------+ +| ?15-29 ?| ?Stage four ? | ? Stage four ?+ ------+ ---------+--------- +| ?<15 (or dialysis) ? ?| ?Stage five ? | ? Stage five ?+ ------+ ---------+--------- + *Each stage assumes the associated GFR level has been in effect for at least three months. ?Stages 1 to 5, with or without kidney disease, indicate chronic kidney disease. Notes: Determination of stages one and two (with eGFR >59mL/min/1.73 m2) requires estimation of kidney damage for at least three months as defined by structural or functional abnormalities of the kidney, manifested by either:Pathological abnormalities or Markers of kidney damage (including abnormalities in the composition of the blood or urine or abnormalities in imaging tests). Lab Interpretation Abnormal (test code = 83452-8) [facility] GLUCOSE (AUTOMATED)2021-01-11 02:58:10 Test Item Value Reference Range Interpretation Comments POCT GLU (test code = 2953142721) 220 mg/dL 70-110 H Lab Interpretation (test code = Abnormal 70527-6) [facility] GLUCOSE (AUTOMATED)2021-01-10 22:15:13 Test Item Value Reference Range Interpretation Comments POCT GLU (test code = 5253465560) 166 mg/dL 70-110 H Lab Interpretation (test code = Abnormal 68154-4) [facility] GLUCOSE (AUTOMATED)2021-01-10 20:54:01 Test Item Value Reference Range Interpretation Comments POCT GLU (test code = 9613109606) 227 mg/dL 70-110 H Lab Interpretation (test code = Abnormal 08426-4) [facility] GLUCOSE (AUTOMATED)2021-01-10 16:26:07 Test Item Value Reference Range Interpretation Comments POCT GLU (test code = 1137574670) 309 mg/dL 70-110 H Lab Interpretation (test code = Abnormal 00648-8) [facility] GLUCOSE (AUTOMATED)2021-01-10 14:44:34 Test Item Value Reference Range Interpretation Comments POCT GLU (test code = 3875026697) 313 mg/dL 70-110 H Lab Interpretation (test code = Abnormal 76886-4) [facility] GLUCOSE (AUTOMATED)2021-01-10 12:35:09 Test Item Value Reference Range Interpretation Comments POCT GLU (test code = 3694424076) 259 mg/dL 70-110 H Lab Interpretation (test code = Abnormal 02324-4) [facility] METABOLIC PANEL (NA, K, CL, CO2, GLUCOSE, BUN, CREATININE, CA)2021-01-10 10:40:34 Test Item Value Reference Range Interpretation Comments NA (test code = 135 mmol/L 135-145 3055060272) K (test code = 4.4 mmol/L 3.5-5.0 4557307156) CL (test code = 89 mmol/L 98-108 L 6579719046) CO2 TOTAL (test code = 40 mmol/L 23-31 H 0208544004) AGAP (test code = 2-16 8409987476) BUN (test code = 49 mg/dL 7-23 H 8974018725) GLUCOSE (test code = 255 mg/dL 70-110 H 1771768960) CREATININE (test code = 0.80 mg/dL 0.50-1.04 8704647474) CALCIUM (test code = 9.1 mg/dL 8.6-10.6 1366283003) eGFR (test code = mL/min/1.73m2 4785071437) RANDOLPH (test code = RANDOLPH) Association of Glomerular Filtration Rate (GFR) and Staging of Kidney Disease* + --+ --+ ------+| GFR (mL/min/1.73 m2) ?| With Kidney Damage ?| ?Without Kidney Damage+ --------+ --------+ +| ?>90 ?| ?Stage one ?| ? Normal ?+ ---+ ---+ -------+| ?60-89 ?| ?Stage two ?| ? Decreased GFR ? + --+ --+ ------+| ?30-59 ?| ?Stage three ?| ? Stage three ? + --+ --+ ------+| ?15-29 ?| ?Stage four ? | ? Stage four ?+ ---+ ---+ -------+| ?<15 (or dialysis) ? ?| ?Stage five ? | ? Stage five ?+ ---+ ---+ -------+ *Each stage assumes the associated GFR level has been in effect for at least three months. ?Stages 1 to 5, with or without kidney disease, indicate chronic kidney disease. Notes: Determination of stages one and two (with eGFR >59mL/min/1.73 m2) requires estimation of kidney damage for at least three months as defined by structural or functional abnormalities of the kidney, manifested by either:Pathological abnormalities or Markers of kidney damage (including abnormalities in the composition of the blood or urine or abnormalities in imaging tests). Lab Interpretation Abnormal (test code = 75345-2) [facility] WITH [id number] 09:39:41 Test Item Value Reference Range Interpretation Comments WBC (test code = See_Comment [Automated 0524-2) message] The sy stem which generated this result transmitted reference range : 4.30 - 11.10 10*3/?L. The reference range was not used to interpret this result as normal/abnormal . RBC (test code = See_Comment [Automated 789-8) message] The sy stem which generated this result transmitted reference range : 3.93 - 5.25 10*6/?L. The reference range was not used to interpret this result as normal/abnormal . HGB (test code = 11.8 g/dL 11.6-15.0 718-7) HCT (test code = 38.6 % 35.7-45.2 4544-3) MCV (test code = 85.6 fL 80.6-95.5 787-2) MCH (test code = 26.2 pg 25.9-32.8 785-6) MCHC (test code = 30.6 g/dL 31.6-35.1 L 786-4) RDW-SD (test code = 49.7 fL 39.0-49.9 27955-7) RDW-CV (test code = 15.9 % 12.0-15.5 H 788-0) PLT (test code = See_Comment [Automated 777-3) message] The sy stem which generated this result transmitted reference range : 166 - 358 10*3/ ?L. The reference r angel was not used to interpret this result as normal/abnormal . MPV (test code = 10.5 fL 9.5-12.9 73665-3) NRBC/100 WBC (test See_Comment [Automat ed code = 1074574319) message] The system which generated this result transmitted reference range : 0.0 - 10.0 /100 WBCs. The refer ence range was not u sed to interpret th is result as normal/abnormal . NRBC x10^3 (test code <0.01 See_Comment [Auto mated = 9616059173) message] The s ystem which generated this result transmitted reference range : 10*3/?L. The reference range was not used to interpret this result as normal/abnormal . GRAN MAT (NEUT) % 87.4 % (test code = 770-8) IMM GRAN % (test code 0.40 % = 3208448662) LYMPH % (test code = 8.7 % 736-9) MONO % (test code = 3.4 % 5905-5) EOS % (test code = 0.0 % 713-8) BASO % (test code = 0.1 % 706-2) GRAN MAT x10^3(ANC) 6.11 10*3/uL 1.88-7.09 (test code = 7139321787) IMM GRAN x10^3 (test 0.03 10*3/uL 0.00-0.06 code = 6659462758) LYMPH x10^3 (test code 0.61 10*3/uL 1.32-3.29 L = 731-0) MONO x10^3 (test code 0.24 10*3/uL 0.33-0.92 L = 742-7) EOS x10^3 (test code = <0.03 0.03-0.39 L 711-2) BASO x10^3 (test code <0.03 0.01-0.07 = 704-7) Lab Interpretation Abnormal (test code = 02018-8) [facility] GLUCOSE (AUTOMATED)2021-01-10 02:35:35 Test Item Value Reference Range Interpretation Comments POCT GLU (test code = 2167161791) 246 mg/dL 70-110 H Lab Interpretation (test code = Abnormal 38556-4) [facility] GLUCOSE (AUTOMATED)2021-01-10 01:22:12 Test Item Value Reference Range Interpretation Comments POCT GLU (test code = 3699180978) 200 mg/dL 70-110 H Lab Interpretation (test code = Abnormal 72917-6) [facility] GLUCOSE (AUTOMATED)2021-01-09 21:10:24 Test Item Value Reference Range Interpretation Comments POCT GLU (test code = 3114369929) 198 mg/dL 70-110 H Lab Interpretation (test code = Abnormal 54892-1) [facility] GLUCOSE (AUTOMATED)2021-01-09 16:41:54 Test Item Value Reference Range Interpretation Comments POCT GLU (test code = 0044981657) 193 mg/dL 70-110 H Lab Interpretation (test code = Abnormal 33971-3) [facility] GLUCOSE (AUTOMATED)2021-01-09 12:53:45 Test Item Value Reference Range Interpretation Comments POCT GLU (test code = 7340971600) 246 mg/dL 70-110 H Lab Interpretation (test code = Abnormal 67825-0) [facility] METABOLIC PANEL (NA, K, CL, CO2, GLUCOSE, BUN, CREATININE, CA)2021-01-09 10:46:02 Test Item Value Reference Range Interpretation Comments NA (test code = 134 mmol/L 135-145 L 5210301710) K (test code = 3.8 mmol/L 3.5-5.0 5889083878) CL (test code = 88 mmol/L 98-108 L 4520679193) CO2 TOTAL (test code = 40 mmol/L 23-31 H 8592578440) AGAP (test code = 2-16 8020623682) BUN (test code = 49 mg/dL 7-23 H 1346639428) GLUCOSE (test code = 302 mg/dL 70-110 H 9123290868) CREATININE (test code = 0.66 mg/dL 0.50-1.04 0388619820) CALCIUM (test code = 9.5 mg/dL 8.6-10.6 1691902567) eGFR (test code = mL/min/1.73m2 5670642777) RANDOLPH (test code = RANDOLPH) Association of Glomerular Filtration Rate (GFR) and Staging of Kidney Disease* + --+ --+ ------+| GFR (mL/min/1.73 m2) ?| With Kidney Damage ?| ?Without Kidney Damage+ --------+ --------+ +| ?>90 ?| ?Stage one ?| ? Normal ?+ ---+ ---+ -------+| ?60-89 ?| ?Stage two ?| ? Decreased GFR ? + --+ --+ ------+| ?30-59 ?| ?Stage three ?| ? Stage three ? + --+ --+ ------+| ?15-29 ?| ?Stage four ? | ? Stage four ?+ ---+ ---+ -------+| ?<15 (or dialysis) ? ?| ?Stage five ? | ? Stage five ?+ ---+ ---+ -------+ *Each stage assumes the associated GFR level has been in effect for at least three months. ?Stages 1 to 5, with or without kidney disease, indicate chronic kidney disease. Notes: Determination of stages one and two (with eGFR >59mL/min/1.73 m2) requires estimation of kidney damage for at least three months as defined by structural or functional abnormalities of the kidney, manifested by either:Pathological abnormalities or Markers of kidney damage (including abnormalities in the composition of the blood or urine or abnormalities in imaging tests). Lab Interpretation Abnormal (test code = 38773-1) [facility] GLUCOSE (AUTOMATED)2021-01-09 09:55:06 Test Item Value Reference Range Interpretation Comments POCT GLU (test code = 6913803634) 299 mg/dL 70-110 H Lab Interpretation (test code = Abnormal 74104-4) [facility] GLUCOSE (AUTOMATED)2021-01-09 05:07:53 Test Item Value Reference Range Interpretation Comments POCT GLU (test code = 7879557216) 415 mg/dL 70-110 H Lab Interpretation (test code = Abnormal 49489-1) [facility] GLUCOSE (AUTOMATED)2021-01-08 23:08:58 Test Item Value Reference Range Interpretation Comments POCT GLU (test code = 5647071118) 514 mg/dL 70-110 HH Lab Interpretation (test code = Abnormal 11666-6) [facility] GLUCOSE (AUTOMATED)2021-01-08 20:51:14 Test Item Value Reference Range Interpretation Comments POCT GLU (test code = 1904378726) 472 mg/dL 70-110 HH Lab Interpretation (test code = Abnormal 06651-8) [facility] GLUCOSE (AUTOMATED)2021-01-08 17:12:00 Test Item Value Reference Range Interpretation Comments POCT GLU (test code = 2325543469) 541 mg/dL 70-110 HH Lab Interpretation (test code = Abnormal 10273-3) [facility] (NA, K, CL, CO2, GLUCOSE, BUN, CREATININE, CA)2021-01-08 10:56:02 Test Item Value Reference Range Interpretation Comments NA (test code = 134 mmol/L 135-145 L 7000653378) K (test code = 3.2 mmol/L 3.5-5.0 L 2325404994) CL (test code = 84 mmol/L 98-108 L 2451357448) CO2 TOTAL (test code = 43 mmol/L 23-31 H 6310738240) AGAP (test code = 2-16 7207469330) BUN (test code = 47 mg/dL 7-23 H 0992540124) GLUCOSE (test code = 448 mg/dL 70-110 H 5081748373) CREATININE (test code = 0.87 mg/dL 0.50-1.04 6652516368) CALCIUM (test code = 9.4 mg/dL 8.6-10.6 6598629067) eGFR (test code = mL/min/1.73m2 4064970297) RANDOLPH (test code = RANDOLPH) Association of Glomerular Filtration Rate (GFR) and Staging of Kidney Disease* + --+ --+ ------+| GFR (mL/min/1.73 m2) ?| With Kidney Damage ?| ?Without Kidney Damage+ --------+ --------+ +| ?>90 ?| ?Stage one ?| ? Normal ?+ ---+ ---+ -------+| ?60-89 ?| ?Stage two ?| ? Decreased GFR ? + --+ --+ ------+| ?30-59 ?| ?Stage three ?| ? Stage three ? + --+ --+ ------+| ?15-29 ?| ?Stage four ? | ? Stage four ?+ ---+ ---+ -------+| ?<15 (or dialysis) ? ?| ?Stage five ? | ? Stage five ?+ ---+ ---+ -------+ *Each stage assumes the associated GFR level has been in effect for at least three months. ?Stages 1 to 5, with or without kidney disease, indicate chronic kidney disease. Notes: Determination of stages one and two (with eGFR >59mL/min/1.73 m2) requires estimation of kidney damage for at least three months as defined by structural or functional abnormalities of the kidney, manifested by either:Pathological abnormalities or Markers of kidney damage (including abnormalities in the composition of the blood or urine or abnormalities in imaging tests). Lab Interpretation Abnormal (test code = 06696-3) [facility] 10:46:03 Test Item Value Reference Range Interpretation Comments MAGNESIUM (test code = 8491806039) 2.3 mg/dL 1.7-2.4 Lab Interpretation (test code = Normal 99786-1) [facility] WITH [id number] 10:14:16 Test Item Value Reference Range Interpretation Comments WBC (test code = See_Comment [Automated 6690-2) message] The sy stem which generated this result transmitted reference range : 4.30 - 11.10 10*3/?L. The reference range was not used to interpret this result as normal/abnormal . RBC (test code = See_Comment [Automated 789-8) message] The sy stem which generated this result transmitted reference range : 3.93 - 5.25 10*6/?L. The reference range was not used to interpret this result as normal/abnormal . HGB (test code = 11.7 g/dL 11.6-15.0 718-7) HCT (test code = 38.5 % 35.7-45.2 4544-3) MCV (test code = 88.7 fL 80.6-95.5 787-2) MCH (test code = 27.0 pg 25.9-32.8 785-6) MCHC (test code = 30.4 g/dL 31.6-35.1 L 786-4) RDW-SD (test code = 52.0 fL 39.0-49.9 H 25162-5) RDW-CV (test code = 16.0 % 12.0-15.5 H 788-0) PLT (test code = See_Comment [Automated 777-3) message] The sy stem which generated this result transmitted reference range : 166 - 358 10*3/ ?L. The reference r angel was not used to interpret this result as normal/abnormal . MPV (test code = 10.8 fL 9.5-12.9 68500-4) NRBC/100 WBC (test See_Comment [Automat ed code = 6041825611) message] The system which generated this result transmitted reference range : 0.0 - 10.0 /100 WBCs. The refer ence range was not u sed to interpret th is result as normal/abnormal . NRBC x10^3 (test code <0.01 See_Comment [Auto mated = 4920036605) message] The s ystem which generated this result transmitted reference range : 10*3/?L. The reference range was not used to interpret this result as normal/abnormal . GRAN MAT (NEUT) % 86.0 % (test code = 770-8) IMM GRAN % (test code 0.40 % = 5308437031) LYMPH % (test code = 8.8 % 736-9) MONO % (test code = 4.8 % 5905-5) EOS % (test code = 0.0 % 713-8) BASO % (test code = 0.0 % 706-2) GRAN MAT x10^3(ANC) 4.10 10*3/uL 1.88-7.09 (test code = 6905629855) IMM GRAN x10^3 (test <0.03 0.00-0.06 code = 9542664488) LYMPH x10^3 (test code 0.42 10*3/uL 1.32-3.29 L = 731-0) MONO x10^3 (test code 0.23 10*3/uL 0.33-0.92 L = 742-7) EOS x10^3 (test code = <0.03 0.03-0.39 L 711-2) BASO x10^3 (test code <0.03 0.01-0.07 = 704-7) Lab Interpretation Abnormal (test code = 97051-6) [facility]A1C)2021-01-07 14:36:39 Test Item Value Reference Range Interpretation Comments HGB A1C (test code = 6.8 % 4.0-5.7 H 4548-4) RANDOLPH (test code = RANDOLPH) Reference RangesNormal: <5.7%Prediabetes: 5.7 - 6.4%Diabetes: > 6.5% Lab Interpretation (test Abnormal code = 43863-0) [facility]OL[facility] (NA, K, CL, CO2, GLUCOSE, BUN, CREATININE, CA)2021-01-06 08:44:08 Test Item Value Reference Range Interpretation Comments NA (test code = 132 mmol/L 135-145 L 3842500465) K (test code = 3.4 mmol/L 3.5-5.0 L 7161607118) CL (test code = 83 mmol/L 98-108 L 5258804670) CO2 TOTAL (test code = 41 mmol/L 23-31 H 6220032972) AGAP (test code = 2-16 7136247072) BUN (test code = 34 mg/dL 7-23 H 9929640044) GLUCOSE (test code = 289 mg/dL 70-110 H 8687930251) CREATININE (test code = 0.86 mg/dL 0.50-1.04 3600265999) CALCIUM (test code = 9.2 mg/dL 8.6-10.6 3256804601) eGFR (test code = mL/min/1.73m2 0968054607) RANDOLPH (test code = RANDOLPH) Association of Glomerular Filtration Rate (GFR) and Staging of Kidney Disease* + --+ --+ ------+| GFR (mL/min/1.73 m2) ?| With Kidney Damage ?| ?Without Kidney Damage+ --------+ --------+ +| ?>90 ?| ?Stage one ?| ? Normal ?+ ---+ ---+ -------+| ?60-89 ?| ?Stage two ?| ? Decreased GFR ? + --+ --+ ------+| ?30-59 ?| ?Stage three ?| ? Stage three ? + --+ --+ ------+| ?15-29 ?| ?Stage four ? | ? Stage four ?+ ---+ ---+ -------+| ?<15 (or dialysis) ? ?| ?Stage five ? | ? Stage five ?+ ---+ ---+ -------+ *Each stage assumes the associated GFR level has been in effect for at least three months. ?Stages 1 to 5, with or without kidney disease, indicate chronic kidney disease. Notes: Determination of stages one and two (with eGFR >59mL/min/1.73 m2) requires estimation of kidney damage for at least three months as defined by structural or functional abnormalities of the kidney, manifested by either:Pathological abnormalities or Markers of kidney damage (including abnormalities in the composition of the blood or urine or abnormalities in imaging tests). Lab Interpretation Abnormal (test code = 23155-5) [facility] 08:34:25 Test Item Value Reference Range Interpretation Comments MAGNESIUM (test code = 7150999603) 2.4 mg/dL 1.7-2.4 Lab Interpretation (test code = Normal 48640-9) [facility] WITH [id number] 07:48:43 Test Item Value Reference Range Interpretation Comments WBC (test code = See_Comment [Automated 6690-2) message] The sy stem which generated this result transmitted reference range : 4.30 - 11.10 10*3/?L. The reference range was not used to interpret this result as normal/abnormal . RBC (test code = See_Comment [Automated 789-8) message] The sy stem which generated this result transmitted reference range : 3.93 - 5.25 10*6/?L. The reference range was not used to interpret this result as normal/abnormal . HGB (test code = 11.1 g/dL 11.6-15.0 L 718-7) HCT (test code = 35.0 % 35.7-45.2 L 4544-3) MCV (test code = 88.4 fL 80.6-95.5 787-2) MCH (test code = 28.0 pg 25.9-32.8 785-6) MCHC (test code = 31.7 g/dL 31.6-35.1 786-4) RDW-SD (test code = 52.3 fL 39.0-49.9 H 45533-1) RDW-CV (test code = 16.0 % 12.0-15.5 H 788-0) PLT (test code = See_Comment [Automated 777-3) message] The sy stem which generated this result transmitted reference range : 166 - 358 10*3/ ?L. The reference r angel was not used to interpret this result as normal/abnormal . MPV (test code = 10.8 fL 9.5-12.9 16093-6) NRBC/100 WBC (test See_Comment [Automat ed code = 9714260557) message] The system which generated this result transmitted reference range : 0.0 - 10.0 /100 WBCs. The refer ence range was not u sed to interpret th is result as normal/abnormal . NRBC x10^3 (test code <0.01 See_Comment [Auto mated = 3810019457) message] The s ystem which generated this result transmitted reference range : 10*3/?L. The reference range was not used to interpret this result as normal/abnormal . GRAN MAT (NEUT) % 86.0 % (test code = 770-8) IMM GRAN % (test code 0.50 % = 6391333682) LYMPH % (test code = 10.2 % 736-9) MONO % (test code = 3.3 % 5905-5) EOS % (test code = 0.0 % 713-8) BASO % (test code = 0.0 % 706-2) GRAN MAT x10^3(ANC) 5.21 10*3/uL 1.88-7.09 (test code = 7660039001) IMM GRAN x10^3 (test 0.03 10*3/uL 0.00-0.06 code = 1507241525) LYMPH x10^3 (test code 0.62 10*3/uL 1.32-3.29 L = 731-0) MONO x10^3 (test code 0.20 10*3/uL 0.33-0.92 L = 742-7) EOS x10^3 (test code = <0.03 0.03-0.39 L 711-2) BASO x10^3 (test code <0.03 0.01-0.07 = 704-7) Lab Interpretation Abnormal (test code = 01269-9) [facility]2021-10-02 16:03:33 Test Item Value Reference Range Interpretation Comments Procalcitonin (test 0.06 ng/mL <0.08 code = 4084214746) RANDOLPH (test code = RANDOLPH) INTERPRETATION OF PROCALCITONIN RESULTS IN ADULTS >= 18 YEARS OF AGE Initiation and discontinuation of antibiotics on patients with suspected or confirmed Lower Respiratory Tract Infection in Adults >= 18 years of age. + +-------- --------+ + -----+|Procalcitonin |Interpretation ?|Antibiotic ? ? |Considerations ? |ng/mL ? | ?|recommendation | ? + +-------- --------+ + -----+| <0.1 ? | Bacterial ? ? ?| Strongly ? ? ?| ? | ?| infection very | discouraged ? | Overruling: ? | ?| unlikely ? ? ? | ? | ? Clinically unstable ? ? ? + +-------- --------+ + ? High risk for adverse ? ? | <0.25 ?| Bacterial ? ? ?| Discouraged ? | ? outcome ? | ?| infection ? ? ?| ? | ? SEE IMPORTANT NOTE ?| ?| unlikely ? ? ? | ? | ? + +-------- --------+ + -----+| >=0.25 ? ? ? | Bacterial ? ? ?| Encouraged ? ?| ? | ?| infection ? ? ?| ? | ? | ?| likely ? | ? | Consider treatment failure ?+ +------- ---------+ -+ if levels does not decrease | >0.5 ? | Bacterial ? ? ?| Strongly ? ? ?| appropriately ? | ?| infection very | encouraged ? ?| ? | ?| likely ? | ? | ? + +-------- --------+ + -----+ Discontinuation of antibiotics in high-acuity patients with suspected or confirmed sepsis in Adults >= 18 years of age. + +-------- --------+ + -----+|Procalcitonin |Interpretation ?|Antibiotic ? ? |Considerations ? |ng/mL ? | ?|recommendation | ? + +-------- --------+ + -----+| <0.25 ?| Bacterial ? ? ?| Strongly ? ? ?| ? | ?| infection very | discouraged ? | Overruling: ? | ?| unlikely ? ? ? | ? | ? Clinically unstable ? ? ? + +-------- --------+ + ? High risk for adverse ? ? | <0.5 or drop | Bacterial ? ? ?| Discouraged ? | ? outcome ? | >80% from ? ?| infection ? ? ?| ? | ? SEE IMPORTANT NOTE ?| highest PCT ?| unlikely ? ? ? | ? | ? | level ?| ?| ? | ? + +-------- --------+ + -----+| >=0.5 ?| Bacterial ? ? ?| Encouraged ? ?| ? | ?| infection ? ? ?| ? | ? | ?| likely ? | ? | Consider treatment failure ?+ +------- ---------+ -+ if levels does not decrease | >1.0 ? | Bacterial ? ? ?| Strongly ? ? ?| appropriately ? | ?| infection very | encouraged ? ?| ? | ?| likely ? | ? | ? + +-------- --------+ + -----+ Percentage of drop of Procalcitonin calculation for Discontinuation of antibiotics in high-acuity patients with suspected or confirmed sepsis in Adults >= 18 years of age. ? Procalcitonin highest{}-Procalcitonin current{}Delta Procalcitonin = x100% ? Procalcitonin current {} IMPORTANT NOTE: Procalcitonin may be elevated without bacterial infection by physiologic stress related to trauma, matson, chronic dialysis, metastatic cancer, surgery in the past seven days, malaria, some fungal infections, and some forms of vasculitis. The interpretation algorithm may not apply to patients with immunosuppression (equivalent of >10 mg of prednisone daily), HIV with CD4 cell count < 350 cells/mm3, active malignancy on systemic chemotherapy, solid organ transplant or hematopoietic stem cell transplantation, or hospital acquired pneumonia. Additionally, some clinical trials of procalcitonin have excluded patients with shock requiring vasopressor use, acute respiratory failure requiring mechanical ventilation, or those with known lung abscess/empyema. For further information please refer to:[email or web address] Lab Interpretation Normal (test code = 58522-6) [facility] [id number] 15:27:51 Test Item Value Reference Range Interpretation Comments NT-proBNP (test code 2040 pg/mL See_Comment H [Autom ated = [id number]) message] The system which generated this result transmitted reference range : <=125. The reference range was not used to interpret this result as normal/abnormal . RANDOLPH (test code = RANDOLPH) Biotin has been reported to cause a negative bias, interpret results relative to patient's use of biotin. Lab Interpretation Abnormal (test code = 01729-6) [facility] METABOLIC PANEL (NA, K, CL, CO2, GLUCOSE, BUN, CREATININE, CA)2021-01-05 11:28:13 Test Item Value Reference Range Interpretation Comments NA (test code = 136 mmol/L 135-145 2519860011) K (test code = 3.9 mmol/L 3.5-5.0 6038720626) CL (test code = 88 mmol/L 98-108 L 5372161990) CO2 TOTAL (test code = 42 mmol/L 23-31 H 9208960639) AGAP (test code = 2-16 7871953556) BUN (test code = 20 mg/dL 7-23 8817090344) GLUCOSE (test code = 185 mg/dL 70-110 H 2822717580) CREATININE (test code = 0.57 mg/dL 0.50-1.04 2008289436) CALCIUM (test code = 8.7 mg/dL 8.6-10.6 6554633257) eGFR (test code = mL/min/1.73m2 4273535644) RANDOLPH (test code = RANDOLPH) Association of Glomerular Filtration Rate (GFR) and Staging of Kidney Disease* + --+ --+ ------+| GFR (mL/min/1.73 m2) ?| With Kidney Damage ?| ?Without Kidney Damage+ --------+ --------+ +| ?>90 ?| ?Stage one ?| ? Normal ?+ ---+ ---+ -------+| ?60-89 ?| ?Stage two ?| ? Decreased GFR ? + --+ --+ ------+| ?30-59 ?| ?Stage three ?| ? Stage three ? + --+ --+ ------+| ?15-29 ?| ?Stage four ? | ? Stage four ?+ ---+ ---+ -------+| ?<15 (or dialysis) ? ?| ?Stage five ? | ? Stage five ?+ ---+ ---+ -------+ *Each stage assumes the associated GFR level has been in effect for at least three months. ?Stages 1 to 5, with or without kidney disease, indicate chronic kidney disease. Notes: Determination of stages one and two (with eGFR >59mL/min/1.73 m2) requires estimation of kidney damage for at least three months as defined by structural or functional abnormalities of the kidney, manifested by either:Pathological abnormalities or Markers of kidney damage (including abnormalities in the composition of the blood or urine or abnormalities in imaging tests). Lab Interpretation Abnormal (test code = 65558-7) [facility] 11:21:19 Test Item Value Reference Range Interpretation Comments MAGNESIUM (test code = 4638633598) 1.9 mg/dL 1.7-2.4 Lab Interpretation (test code = Normal 50643-0) [facility] WITH [id number] 10:38:12 Test Item Value Reference Range Interpretation Comments WBC (test code = See_Comment [Automated 6690-2) message] The sy stem which generated this result transmitted reference range : 4.30 - 11.10 10*3/?L. The reference range was not used to interpret this result as normal/abnormal . RBC (test code = See_Comment L [Automated 789-8) message] The sy stem which generated this result transmitted reference range : 3.93 - 5.25 10*6/?L. The reference range was not used to interpret this result as normal/abnormal . HGB (test code = 10.2 g/dL 11.6-15.0 L 718-7) HCT (test code = 34.4 % 35.7-45.2 L 4544-3) MCV (test code = 89.1 fL 80.6-95.5 787-2) MCH (test code = 26.4 pg 25.9-32.8 785-6) MCHC (test code = 29.7 g/dL 31.6-35.1 L 786-4) RDW-SD (test code = 53.1 fL 39.0-49.9 H 28907-2) RDW-CV (test code = 16.3 % 12.0-15.5 H 788-0) PLT (test code = See_Comment [Automated 777-3) message] The sy stem which generated this result transmitted reference range : 166 - 358 10*3/ ?L. The reference r angel was not used to interpret this result as normal/abnormal . MPV (test code = 11.4 fL 9.5-12.9 81757-4) NRBC/100 WBC (test See_Comment [Automat ed code = 4900292465) message] The system which generated this result transmitted reference range : 0.0 - 10.0 /100 WBCs. The refer ence range was not u sed to interpret th is result as normal/abnormal . NRBC x10^3 (test code <0.01 See_Comment [Auto mated = 7954221747) message] The s ystem which generated this result transmitted reference range : 10*3/?L. The reference range was not used to interpret this result as normal/abnormal . GRAN MAT (NEUT) % 85.8 % (test code = 770-8) IMM GRAN % (test code 0.40 % = 4213805178) LYMPH % (test code = 11.6 % 736-9) MONO % (test code = 2.2 % 5905-5) EOS % (test code = 0.0 % 713-8) BASO % (test code = 0.0 % 706-2) GRAN MAT x10^3(ANC) 3.93 10*3/uL 1.88-7.09 (test code = 2932301940) IMM GRAN x10^3 (test <0.03 0.00-0.06 code = 9477554279) LYMPH x10^3 (test code 0.53 10*3/uL 1.32-3.29 L = 731-0) MONO x10^3 (test code 0.10 10*3/uL 0.33-0.92 L = 742-7) EOS x10^3 (test code = <0.03 0.03-0.39 L 711-2) BASO x10^3 (test code <0.03 0.01-0.07 = 704-7) Lab Interpretation Abnormal (test code = 33460-7) [facility] + LACTIC [id number] 09:56:18 Test Item Value Reference Range Interpretation Comments PH (test code = 2) 7.35-7.45 PCO2 (test code = See_Comment H [Automat ed 5859269696) message] The sy stem which generated this result transmitted reference range : 35 - 45 mmHg. The reference range was not used to interpret this result as normal/abnormal . PO2 (test code = See_Comment L [Automated 4365914849) message] The sy stem which generated this result transmitted reference range : 80 - 100 mmHg. The reference range was not used to interpret this result as normal/abnormal . HCO3 (test code = See_Comment H [Automate d 0542131010) message] The sy stem which generated this result transmitted reference range : 22 - 26 mEq/L. The reference range was not used to interpret this result as normal/abnormal . BE (test code = See_Comment H [Automated 1894307826) message] The sy stem which generated this result transmitted reference range : -3.0 - 3.0 mEq/ L. The reference r angel was not used to interpret this result as normal/abnormal . THB (test code = 10.3 g/dL 12.0-16.0 L 8206745582) %O2HB (test code = 93.2 % 94.0-99.0 L 3377148902) %COHB ART (test code = 0.3 % 0.0-1.5 1988033687) %METHB ART (test code = 0.3 % 0.4-1.5 L 6658682705) VOL%O2 ART (test code = 13.6 % 15.0-23.0 L 7759486639) NA (test code = 138 mmol/L 135-145 8632039275) K+ (test code = 3.7 mmol/L 3.5-5.0 0627208953) AC CA IONZ (test code = 4.40 mg/dL 4.50-5.30 L 1709034987) GLUCOSE (test code = 200 mg/dL 70-110 H 2154265945) LACTIC ACID (test code 0.96 mmol/L 0.50-2.20 QUES = 6605724993) Lab Interpretation Abnormal (test code = 15141-1) [facility] + LACTIC [id number] 20:03:28 Test Item Value Reference Range Interpretation Comments PH (test code = 2) 7.35-7.45 PCO2 (test code = See_Comment H [Automat ed 1441353859) message] The sy stem which generated this result transmitted reference range : 35 - 45 mmHg. The reference range was not used to interpret this result as normal/abnormal . PO2 (test code = See_Comment L [Automated 6326058206) message] The sy stem which generated this result transmitted reference range : 80 - 100 mmHg. The reference range was not used to interpret this result as normal/abnormal . HCO3 (test code = See_Comment H [Automate d 3229945660) message] The sy stem which generated this result transmitted reference range : 22 - 26 mEq/L. The reference range was not used to interpret this result as normal/abnormal . BE (test code = See_Comment H [Automated 1584933215) message] The sy stem which generated this result transmitted reference range : -3.0 - 3.0 mEq/ L. The reference r angel was not used to interpret this result as normal/abnormal . THB (test code = 11.8 g/dL 12.0-16.0 L 6299748794) %O2HB (test code = 88.2 % 94.0-99.0 L 4008405952) %COHB ART (test code = 0.7 % 0.0-1.5 3062899709) %METHB ART (test code = 0.3 % 0.4-1.5 L 5834507600) VOL%O2 ART (test code = 14.6 % 15.0-23.0 L 9687695347) NA (test code = 129 mmol/L 135-145 L 7580411072) K+ (test code = 4.2 mmol/L 3.5-5.0 9320978630) AC CA IONZ (test code = 4.40 mg/dL 4.50-5.30 L 0158726626) GLUCOSE (test code = 163 mg/dL 70-110 H 2394478546) LACTIC ACID (test code 1.33 mmol/L 0.50-2.20 = 8225568074) Lab Interpretation Abnormal (test code = 93123-0) [facility]2021[facility]-01 13:36:43 Test Item Value Reference Range Interpretation Comments Procalcitonin (test 0.07 ng/mL <0.08 code = 4870597951) RANDOLPH (test code = RANDOLPH) INTERPRETATION OF PROCALCITONIN RESULTS IN ADULTS >= 18 YEARS OF AGE Initiation and discontinuation of antibiotics on patients with suspected or confirmed Lower Respiratory Tract Infection in Adults >= 18 years of age. + +-------- --------+ + -----+|Procalcitonin |Interpretation ?|Antibiotic ? ? |Considerations ? |ng/mL ? | ?|recommendation | ? + +-------- --------+ + -----+| <0.1 ? | Bacterial ? ? ?| Strongly ? ? ?| ? | ?| infection very | discouraged ? | Overruling: ? | ?| unlikely ? ? ? | ? | ? Clinically unstable ? ? ? + +-------- --------+ + ? High risk for adverse ? ? | <0.25 ?| Bacterial ? ? ?| Discouraged ? | ? outcome ? | ?| infection ? ? ?| ? | ? SEE IMPORTANT NOTE ?| ?| unlikely ? ? ? | ? | ? + +-------- --------+ + -----+| >=0.25 ? ? ? | Bacterial ? ? ?| Encouraged ? ?| ? | ?| infection ? ? ?| ? | ? | ?| likely ? | ? | Consider treatment failure ?+ +------- ---------+ -+ if levels does not decrease | >0.5 ? | Bacterial ? ? ?| Strongly ? ? ?| appropriately ? | ?| infection very | encouraged ? ?| ? | ?| likely ? | ? | ? + +-------- --------+ + -----+ Discontinuation of antibiotics in high-acuity patients with suspected or confirmed sepsis in Adults >= 18 years of age. + +-------- --------+ + -----+|Procalcitonin |Interpretation ?|Antibiotic ? ? |Considerations ? |ng/mL ? | ?|recommendation | ? + +-------- --------+ + -----+| <0.25 ?| Bacterial ? ? ?| Strongly ? ? ?| ? | ?| infection very | discouraged ? | Overruling: ? | ?| unlikely ? ? ? | ? | ? Clinically unstable ? ? ? + +-------- --------+ + ? High risk for adverse ? ? | <0.5 or drop | Bacterial ? ? ?| Discouraged ? | ? outcome ? | >80% from ? ?| infection ? ? ?| ? | ? SEE IMPORTANT NOTE ?| highest PCT ?| unlikely ? ? ? | ? | ? | level ?| ?| ? | ? + +-------- --------+ + -----+| >=0.5 ?| Bacterial ? ? ?| Encouraged ? ?| ? | ?| infection ? ? ?| ? | ? | ?| likely ? | ? | Consider treatment failure ?+ +------- ---------+ -+ if levels does not decrease | >1.0 ? | Bacterial ? ? ?| Strongly ? ? ?| appropriately ? | ?| infection very | encouraged ? ?| ? | ?| likely ? | ? | ? + +-------- --------+ + -----+ Percentage of drop of Procalcitonin calculation for Discontinuation of antibiotics in high-acuity patients with suspected or confirmed sepsis in Adults >= 18 years of age. ? Procalcitonin highest{}-Procalcitonin current{}Delta Procalcitonin = x100% ? Procalcitonin current {} IMPORTANT NOTE: Procalcitonin may be elevated without bacterial infection by physiologic stress related to trauma, matson, chronic dialysis, metastatic cancer, surgery in the past seven days, malaria, some fungal infections, and some forms of vasculitis. The interpretation algorithm may not apply to patients with immunosuppression (equivalent of >10 mg of prednisone daily), HIV with CD4 cell count < 350 cells/mm3, active malignancy on systemic chemotherapy, solid organ transplant or hematopoietic stem cell transplantation, or hospital acquired pneumonia. Additionally, some clinical trials of procalcitonin have excluded patients with shock requiring vasopressor use, acute respiratory failure requiring mechanical ventilation, or those with known lung abscess/empyema. For further information please refer to:[email or web address] Lab Interpretation Normal (test code = 12992-2) [facility] Arterial Blood Gas.2021-01-04 12:35:38 Test Item Value Reference Range Interpretation Comments PH (test code = 2) 7.35-7.45 PCO2 (test code = See_Comment H [Automat ed message] 4310029155) The system Witel generated this result transmitted ref erence range: 35 - 45 mmHg. The reference r angel was not used to interpret this result as normal/abnor mal. PO2 (test code = See_Comment L QUES [Autom ated 5100330049) message] The sy stem which generated this result transmit marialuisa reference range : 80 - 100 mmHg. The reference range was not used to int erpret this result as normal/abnormal . HCO3 (test code = See_Comment H [Automate d message] 5622018579) The system Witel generated this result transmitted ref erence range: 22 - 26 mEq/L. The reference r angel was not used to interpret this result as normal/abnor mal. BE (test code = See_Comment H [Automated message] 0742884244) The system Witel generated this result transmitted ref erence range: -3.0 - 3 .0 mEq/L. The refe rence range was not u sed to interpret this result as normal/abnor mal. Lab Interpretation (test Abnormal code = 33878-1) [facility] [id number] 12:02:58 Test Item Value Reference Interpretation Comments Range TROPONIN I (test 0.006 ng/mL See_Comment [Automated code = 1358193037) message] The system which generated this result transmitted reference range : <=0.034. The reference range was not used to interpret this result as normal/abnormal . RANDOLPH (test code = Reference (Normal) RANDOLPH) Range (defined by the 99th percentile reference limit): <= 0.034 ng/mL Note: Cardiac troponin begins to rise 3-4 hours after the onset of ischemia. Repeat in 4-6 hours if the sample was drawn within 3-4 hours of the onset of the symptom and found normal. Diagnosis of myocardial injury is made with acute changes in cTn concentrations with at least one serial sample above the 99th percentile upper reference limit (URL), taken together with the patient's clinical presentation. Biotin has been reported to cause a negative bias, interpret results relative to patient's use of biotin. Lab Interpretation Normal (test code = 15208-8) [facility] [id number] 12:02:58 Test Item Value Reference Range Interpretation Comments NT-proBNP (test code 1190 pg/mL See_Comment H [Autom ated = 3633564776) message] The system which generated this result transmitted reference range : <=125. The reference range was not used to interpret this result as normal/abnormal . RNADOLPH (test code = RANDOLPH) Biotin has been reported to cause a negative bias, interpret results relative to patient's use of biotin. Lab Interpretation Abnormal (test code = 22228-9) [facility]. METABOLIC PANEL (35690)2021-01-04 12:00:46 Test Item Value Reference Range Interpretation Comments NA (test code = 135 mmol/L 135-145 1863304256) K (test code = 4.5 mmol/L 3.5-5.0 Slight 3544866239) hemolysis CL (test code = 89 mmol/L 98-108 L 2182117838) CO2 TOTAL (test code 43 mmol/L 23-31 H = 2376860467) AGAP (test code = 2-16 5046686894) BUN (test code = 20 mg/dL 7-23 Slight 8961220069) hemolysis GLUCOSE (test code = 149 mg/dL 70-110 H 0816736594) CREATININE (test code 0.59 mg/dL 0.50-1.04 = 5589801883) TOTAL BILI (test code 1.5 mg/dL 0.1-1.1 H = 7094343775) CALCIUM (test code = 8.8 mg/dL 8.6-10.6 1744869235) T PROTEIN (test code 8.2 g/dL 6.3-8.2 = 8476294608) ALBUMIN (test code = 3.8 g/dL 3.5-5.0 2844843544) ALK PHOS (test code = 57 U/L 34-122 Slight 8499897526) hemolysis ALTv (test code = 32 U/L 5-35 1742-6) AST(SGOT) (test code 29 U/L 13-40 Slight = 1748978090) hemolysis eGFR (test code = mL/min/1.73m2 7286518889) RANDOLPH (test code = RANDOLPH) Association of Glomerular Filtration Rate (GFR) and Staging of Kidney Disease* + -----+ --------+ +| GFR (mL/min/1.73 m2) ?| With Kidney Damage ?| ?Without Kidney Damage+ +------- +---- --+| ?>90 ?| ?Stage one ?| ? Normal ?+ ------+ ---------+--------- +| ?60-89 ?| ?Stage two ?| ? Decreased GFR ? + -----+ --------+ +| ?30-59 ?| ?Stage three ?| ? Stage three ? + -----+ --------+ +| ?15-29 ?| ?Stage four ? | ? Stage four ?+ ------+ ---------+--------- +| ?<15 (or dialysis) ? ?| ?Stage five ? | ? Stage five ?+ ------+ ---------+--------- + *Each stage assumes the associated GFR level has been in effect for at least three months. ?Stages 1 to 5, with or without kidney disease, indicate chronic kidney disease. Notes: Determination of stages one and two (with eGFR >59mL/min/1.73 m2) requires estimation of kidney damage for at least three months as defined by structural or functional abnormalities of the kidney, manifested by either:Pathological abnormalities or Markers of kidney damage (including abnormalities in the composition of the blood or urine or abnormalities in imaging tests). Lab Interpretation Abnormal (test code = 92159-9) [facility] WITH [id number] 11:35:34 Test Item Value Reference Range Interpretation Comments WBC (test code = See_Comment [Automated 6690-2) message] The sy stem which generated this result transmitted reference range : 4.30 - 11.10 10*3/?L. The reference range was not used to interpret this result as normal/abnormal . RBC (test code = See_Comment L [Automated 789-8) message] The sy stem which generated this result transmitted reference range : 3.93 - 5.25 10*6/?L. The reference range was not used to interpret this result as normal/abnormal . HGB (test code = 10.5 g/dL 11.6-15.0 L 718-7) HCT (test code = 35.1 % 35.7-45.2 L 4544-3) MCV (test code = 91.2 fL 80.6-95.5 787-2) MCH (test code = 27.3 pg 25.9-32.8 785-6) MCHC (test code = 29.9 g/dL 31.6-35.1 L 786-4) RDW-SD (test code = 55.4 fL 39.0-49.9 H 74241-9) RDW-CV (test code = 16.5 % 12.0-15.5 H 788-0) PLT (test code = See_Comment [Automated 777-3) message] The sy stem which generated this result transmitted reference range : 166 - 358 10*3/ ?L. The reference r angel was not used to interpret this result as normal/abnormal . MPV (test code = 10.8 fL 9.5-12.9 83090-5) NRBC/100 WBC (test See_Comment [Automat ed code = 2124341904) message] The system which generated this result transmitted reference range : 0.0 - 10.0 /100 WBCs. The refer ence range was not u sed to interpret th is result as normal/abnormal . NRBC x10^3 (test code <0.01 See_Comment [Auto mated = 0146639862) message] The s ystem which generated this result transmitted reference range : 10*3/?L. The reference range was not used to interpret this result as normal/abnormal . GRAN MAT (NEUT) % 81.1 % (test code = 770-8) IMM GRAN % (test code 0.50 % = 1974731386) LYMPH % (test code = 9.8 % 736-9) MONO % (test code = 5.6 % 5905-5) EOS % (test code = 2.8 % 713-8) BASO % (test code = 0.2 % 706-2) GRAN MAT x10^3(ANC) 6.94 10*3/uL 1.88-7.09 (test code = 3483756866) IMM GRAN x10^3 (test 0.04 10*3/uL 0.00-0.06 code = 4860807701) LYMPH x10^3 (test code 0.84 10*3/uL 1.32-3.29 L = 731-0) MONO x10^3 (test code 0.48 10*3/uL 0.33-0.92 = 742-7) EOS x10^3 (test code = 0.24 10*3/uL 0.03-0.39 711-2) BASO x10^3 (test code <0.03 0.01-0.07 = 704-7) Lab Interpretation Abnormal (test code = 90024-6) [facility] [id number] 11:07:59 - BREAST ULTRASOUND BILATERALULTRASOUND OF BOTH BREASTS AND BOTH AXILLA: 06/25/2018CLINICAL: Abnormalmammogram. Comparison is made to exam dated 04/29/2018 mammogram - [facility]. Real-time ultrasound of both breasts [...] stab ility. Sandra Tolentino M.D. dm/:06/25/2018 11:07:59 Sawmill Manager: Lyla SALAS, [facility]-FWletter sent: Short Term Follow Up Ultrasound BI-RADS: 3 Probably benignSCR MAMM BILATERAL TESHA CAD DIGITAL 2018-05-10 16:41:30 - SCR MAMM BILATERAL TESHA CAD DIGITALBILATERAL FIRST [facility]ER DIGITAL SCREENING MAMMOGRAM 3D/2D WITH CAD: 04/29/2018CLINICAL: Asymptomatic. Digital breast tomosynthesis was performed in addition to routine CC and MLO views. Current mammographic images were evaluated by either a Matchup M-Vu or an iCAD version 7.2 computer [...] today. Tory Koo M.D. cc/:05/10/2018 16:41:30 Entry: - 05/11/2018 14:26:43Imaging Technologist: Marya Hartman MM,[facility] Additional Imaging Mammogram BI-RADS: 0 IndeterminateSCR MAMM BILATERAL TESHA CAD [id number] 16:41:30AMENDMENT: 05/18/2018 Tory Koo M.D. The statement:IMPRESSION: INCOMPLETE ASSESSMENT: ADDITIONAL IMAGING EVALUATION RECOMMENDEDFurther evaluation is pending; breast ultrasound to be performed toda y. in the above examination is incorrect. The correct statement is:IMPRESSION: INCOMPLETE ASSESSMENT: ADDITIONAL IMAGING EVALUATION RECOMMENDEDThe multiple bilateral areas of asymmetry in focal asymmetry are indeterminate. Comparison to previous mammograms is recommended and if the findings are newor priors are unobtainable and ultrasound should be performed.Amended BI-RADS: 0 Indeterminate"
== END 2021-02-04 14:48 | disposition home or self-care (01) ==
LOC: ER 14:19
DX: L08.9 Local infection of the skin and subcutaneous tissue, unspecified (principal); I10 Essential (primary) hypertension; I50.9 Heart failure, unspecified; Z88.6 Allergy status to analgesic agent
CPT/HCPCS: 99282

== ENCOUNTER 2022-04-14 18:47 | Inpatient (IN) | payer OTHER ==
--- OUTSIDE RECORDS SUMMARY | 2022-04-14 18:54 | XMS REPORT | Continuity of Care Document ---
:1960 Author Organization Formerly [facility] t Address [address] [place] [address] Care Team Providers Name Role Phone BULL, RAMIRO Sheppard Primary Care Physician Unavailable ADRIANA REYNOLDS Attending Clinician Unavailable KURTIS ASNDERS Attending Clinician Unavailable Kurtis Bell Attending Clinician Gio Thomas RN Attending Clinician Unavailable MONI RANDALL Attending Clinician Unavailable Enoc Ware MD Attending Clinician Moni Randall MD Attending Clinician ZACHARY NICOLAS Attending Clinician Unavailable Zachary Nicolas MD Attending Clinician Adriana Reynolds MD Attending Clinician Doctor Unassigned, [place] Attending Clinician Unavailable Ritika Zaldivar DO Attending Clinician Emeli Mcallister MD Attending Clinician Kishore Gaytan MD Attending Clinician Abiola Pantoja MD Attending Clinician ABIOLA PANTOJA Attending Clinician Unavailable Mansi Hurley RN Attending Clinician Unavailable Tamie Townsend Attending Clinician MONI RANDALL Admitting Clinician Unavailable Moni Randall MD Admitting Clinician ZACHARY NICOLAS Admitting Clinician Unavailable Govind NEUMANN, Emeli Murray Admitting Clinician EMELI MCALLISTER Admitting Clinician Unavailable Payers Payer Name Policy Type Policy Number Effective Date Expiration Date Timothy WHITTINGTON Framed Data [id number] 2018 00:00:00 ERICA NORMAN PLS [id number] 2021 00:00:00 HMO Problems Condition Condition Condition Status Onset Resolution Last Treating Co mments Source Name Details Category Date Date Treatment Clinician Date Vomiting, Vomiting, Disease Active 2021-04 Uni vers unspecifie unspecifie 0-23 it y of d vomiting d [place] type, type, 00 Medical unspecifie unspecifie Br anch d whether d whether nausea nausea present present Chronic Chronic Disease Active Univers heart heart 3-16 ity of failure failure 00:00: [place] with with 00 Medical preserved preserved Bran ch ejection ejection fraction fraction Syncope Syncope Disease Active Univers and and 3-16 ity of collapse collapse 00:00: [place] 00 Medical Branch Pulmonary Pulmonary Disease Active Uni vers hypertensi hypertensi 3-16 it y of on on 00:00: [place] 00 Medical Branch Morbid Morbid Disease Active Univers obesity obesity 3-16 ity of 00:00: [place] 00 Medical Branch History of History of Disease Active U nivers arterial arterial 3-16 ity of ischemic ischemic 00:00: [place] stroke stroke 00 Medical Branch 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 Uni vers acute acute 0-01 ity of exacerbati exacerbati 00[place]00: [place] on on 00 Medical Branch Acute on Acute on Disease Active Unive rs chronic chronic 9-11 ity of diastolic diastolic 00:00: [place] congestive congestive 00 Me dical heart heart Branch failure failure POLI POLI Disease Active Univers (obstructi (obstructi 9-11 it y of ve sleep ve sleep 00:00: [place] apnea) apnea) 00 Medical Branch Essential Essential Disease Active Uni vers hypertensi hypertensi 9-11 it y of on on 00:00: [place] 00 Medical Branch Morbid Morbid Disease Active Univers obesity obesity 9-10 ity of with body with body 00:00: [place] mass index mass index 00 Me dical of 50 or of 50 or Branch higher higher Acute Acute Disease Active Univers respirator respirator 9- it y of y failure y failure 00[place]00[place] 00 [place] Respirator Respirator Disease Active U nivers y distress y distress 9-10 it y of 00:00: 00 Medical Branch Allergies, Adverse Reactions, Alerts Allergy Allergy Status Severity Reaction(s) Onset Inactive Treating Comm ents Source Name Type Date Date Clinician COCONUT DRUG Active High Anaphylaxis 2021-04 Univ ers INGREDI 0-23 ity of 00:00: [place] 00 Medical Branch Coconut Propensi Active Anaphylaxis 2021-04 Un bobby ty to 0-23 ity of adverse 00:00: [place] reaction 00 Medical s Branch HYDROCOD DRUG Active Other-Cmnt Univ ers ONE INGREDI 08-04 ity of 00:00: [place] 00 Medical Branch Hydrocod Propensi Active Other - See Pass out Univers one ty to comments 08-04 ity of adverse 00:00: [place] reaction 00 Medical s Branch Ibuprofe Propensi Active Nausea Univer s n ty to and/or 3-16 ity of adverse Vomiting 00:00: [place] reaction 00 Medical s Branch IBUPROFE DRUG Active N/V Univers N INGREDI 3-16 ity of 00:00: Medical [place] Social History Social Habit Start Date Stop Date Quantity Comments Source History [facility] o f Alcohol Frequency [facility] edical Branch History [facility] o f Alcohol Std Drinks [facility] History [facility] o f Alcohol Binge [place] Medic al Branch History of tobacco Passive smoker Un iversity of use [facility] Exposure to 2022-02-15 2022-02-25 Not sure University of SARS-CoV-2 (event) 00:00:00 16:51:00 [facility] Alcohol intake 2022-02-25 2022-02-25 Current University of 00:00:00 00:00:00 non-drinker of [facility] alcohol Branch (finding) Tobacco use and 2022-01-26 2022-01-26 Smokeless Universit y of exposure 00:00:00 00:00:00 tobacco non-user [facility] dical Branch Cigarettes smoked 2022-01-26 2022-01-26 Univers ity of current (pack per 00:00:00 00:00:00 ) - Reported Branch Cigarette 2022-01-26 2022-01-26 University of pack-years 00:00:00 00:00:00 [facility] Alcohol Comment 2016-12-14 2016-12-14 social drinker Unive rsity of 00:00:00 00:00:00 [facility] Sex Ass[birth year] At [birth year] Universit y of 00:00:00 00:00:00 [facility] Smoking Status Start Date Stop Date Source Ex-smoker 2022-01-26 00:00:00 2022-01-26 00:00:00 [facility] Medications Ordered Filled Start Stop Current Ordering Indication Dosage Frequency Signature Comments Components Source Medication Medication Date Date Medication? Clinician (SIG) Name Name cephALEXin 2021-04- No 500mg 500 mg, Un bobby (KEFLEX) 04-28 Oral, ity of capsule 500 01:30: 00:37 ONCE, 1 [place] mg 00 :00 dose, On Medical Tue Branch 02/25/22 at 1930, RONI
Re ason for Anti-Infec tive: Documented Infection< br>Documen marialuisa Infection Site: Skin / Soft Tissue
Duration of Therapy: 10 days mupirocin 2 2021-04 Yes [id number] Apply to Univers % ointment 04-27 area(s) 3 ity of 00:00: (three) [place] 00 times Medical daily. Branch cephALEXin 2021-04- Yes [id number] 500mg Take 1 Univers (KEFLEX) 04-27 capsule by ity of 500 mg 00:00: 05:59 mouth in [place] capsule 00 :00 the Medical morning Branch and 1 capsule at noon and 1 capsule in the evening. Do all this for 10 days. fluticasone 2021-04 Yes 1{spray Use 1 Un bobby propionate 1-03 } [place] in ity o f 50 00:00: each [place] mcg/actuati 00 nostril in Me dical on nasal the Branch spray morning. fluticasone 2021-04 Yes 1{spray Use 1 Un bobby propionate 1-03 } [place] in ity o f 50 00:00: each [place] mcg/actuati 00 nostril in Me dical on nasal the Branch spray morning. fluticasone 2021-04 Yes 1{spray Use 1 Un bobby propionate 1-03 } [place] in ity o f 50 00:00: each [place] mcg/actuati 00 nostril in Me dical on nasal the Branch spray morning. albuterol 2021-04 Yes 2.5mg Inhale 2.5 U nivers 2.5 mg /3 1-02 mg every 4 ity of mL (0.083 17:20: (four) [place] ) 51 hours as Medical nebulizer needed for Bran ch solution Wheezing or Shortness of Breath. ALPRAZolam 2021-04 Yes .25mg Take 0.25 U nivers 0.25 mg 1-02 mg by ity of tablet 17:20: mouth as [place] [address] needed. Medical Branch atorvastati 2021-04 Yes 10mg Take 10 mg Univers n 10 mg 02 by mouth ity of tablet 17:20: daily. [place] [address] Medical Branch fluticasone 2021-04 Yes 1{puff} Inhale 1 Univers furoate-edward 1-02 Puff ity of anteroL 17:20: daily. [place] ([place] [id number] Medical ELLIPTA) Branch 100-25 mcg/dose DsDv bumetanide 2021-04 Yes 1mg Take 1 mg Un bobby 1 mg tablet -02 by mouth ity of 17:20: daily. [place] [address] Medical Branch carvediloL 2021-04 Yes 3.125mg Take 3.125 Univers 3.125 mg 1-02 mg by ity of tablet 17:20: mouth 2 [place] [address] (two) Medical times Branch daily with meals. citalopram 2021-04 Yes 40mg Take 40 mg U nivers 40 mg 1-02 by mouth ity of tablet 17:20: daily. [place] [address] Medical Branch KCL 20 mEq 2021-04 Yes Take by Univ ers tablet 1-02 mouth ity of 17:20: daily. [place] [address] Medical Branch pantoprazol 2021-04 Yes 40mg Take 40 mg Univers e sodium 1-02 by mouth ity of (PANTOPRAZO 17:20: [facility]. [facility] sildenafil 2021-04 Yes 20mg Take 20 mg U nivers 20 mg 1-02 by mouth 3 ity of tablet 17:20: (three) [place] [address] times Medical daily. Branch spironolact 2021-04 Yes 25mg Take 25 mg Univers one 25 mg 1-02 by mouth 2 ity of tablet 17:20: (two) [place] [address] times Medical daily. Branch liraglutide 2021-04 Yes .6mg inject 0.6 Univers (VICTOZA 1-02 mg under ity of 2-LYNDSEY) 0.6 17:20: the skin [place] as mg/0.1 mL 51 daily. Medical (18 mg/3 Inject 1.8 Branc h mL) under the injection skin once daily albuterol 2021-04 Yes 2{puff} Inhale 2 U nivers sulfate 1-02 Puffs as ity of (PROAIR HFA 17:20: needed. [place] INHALE) Medical Branch aspirin 81 2021-04 Yes 81mg Take 81 mg U nivers mg chewable 1-02 by mouth ity of tablet 17:20: in the [place] [address] morning. Medical Branch albuterol 2021-04 Yes 2.5mg Inhale 2.5 U nivers 2.5 mg /3 1-02 mg every 4 ity of mL (0.083 17:20: (four) [place] [facility]) 51 hours as Medical nebulizer needed for Bran ch solution Wheezing or Shortness of Breath. ALPRAZolam 2021-04 Yes .25mg Take 0.25 U nivers 0.25 mg 1-02 mg by ity of tablet 17:20: mouth as [place] [address] needed. Medical Branch atorvastati 2021-04 Yes 10mg Take 10 mg Univers n 10 mg 1-02 by mouth ity of tablet 17:20: daily. [place] [address] Medical Branch fluticasone 2021-04 Yes 1{puff} Inhale 1 Univers furoate-edward 1-02 Puff ity of anteroL 17:20: daily. [place] [facility] Branch 100-25 mcg/dose DsDv bumetanide 2021-04 Yes 1mg Take 1 mg Un bobby 1 mg tablet 1-02 by mouth ity of 17:20: daily. [place] [address] Medical Branch carvediloL 2021-04 Yes 3.125mg Take 3.125 Univers 3.125 mg 1-02 mg by ity of tablet 17:20: mouth 2 [place] [address] (two) Medical times Branch daily with meals. citalopram 2021-04 Yes 40mg Take 40 mg U nivers 40 mg -02 by mouth ity of tablet 17:20: daily. [place] [address] Medical Branch KCL 20 mEq 2021-04 Yes Take by Univ ers tablet 1-02 mouth ity of 17:20: daily. [place] [address] Medical Branch pantoprazol 2021-04 Yes 40mg Take 40 mg Univers e sodium -02 by mouth ity of (PANTOPRAZO 17:20: [place]. [place] LE ORAL) Medical Branch sildenafil 2021-04 Yes 20mg Take 20 mg U nivers 20 mg 1-02 by mouth 3 ity of tablet 17:20: (three) [place] [address] times Medical daily. Branch spironolact 2021-04 Yes 25mg Take 25 mg Univers one 25 mg 02 by mouth 2 ity of tablet 17:20: (two) [place] [address] times Medical daily. Branch liraglutide 2021-04 Yes .6mg inject 0.6 Univers (VICTOZA 1-02 mg under ity of 2-LYNDSEY) 0.6 17:20: the skin [place] mg/0.1 mL 51 daily. Medical (18 mg/3 Inject 1.8 Branc h mL) under the injection skin once daily albuterol 2021-04 Yes 2{puff} Inhale 2 U nivers sulfate 1-02 Puffs as ity of (PROAIR HFA 17:20: needed. [place] INHALE) 51 Medical Branch aspirin 81 2021-04 Yes 81mg Take 81 mg U nivers mg chewable 02 by mouth ity of tablet 17:20: in the [place] [address] morning. Medical Branch albuterol 2021-04 Yes 2.5mg Inhale 2.5 U nivers 2.5 mg /3 1-02 mg every 4 ity of mL (0.083 17:20: (four) [place] [facility]) 51 hours as Medical nebulizer needed for Bran ch solution Wheezing or Shortness of Breath. ALPRAZolam 2021-04 Yes .25mg Take 0.25 U nivers 0.25 mg 1-02 mg by ity of tablet 17:20: mouth as [place] [address] needed. Medical Branch atorvastati 2021-04 Yes 10mg Take 10 mg Univers n 10 mg 1-02 by mouth ity of tablet 17:20: daily. [place] [address] Medical Branch fluticasone 2021-04 Yes 1{puff} Inhale 1 Univers furoate-edward 1-02 Puff ity of anteroL 17:20: daily. [place] (BREO 51 Medical ELLIPTA) Branch 100-25 mcg/dose DsDv bumetanide 2021-04 Yes 1mg Take 1 mg Un bobby 1 mg tablet 1-02 by mouth ity of 17:20: daily. [place] [address] Medical Branch carvediloL 2021-04 Yes 3.125mg Take 3.125 Univers 3.125 mg 1-02 mg by ity of tablet 17:20: mouth 2 [place] [address] (two) Medical times Branch daily with meals. citalopram 2021-04 Yes 40mg Take 40 mg U nivers 40 mg -02 by mouth ity of tablet 17:20: daily. [place] [address] Medical [place] KCL 20 mEq 2021-04 Yes Take by Univ ers tablet -02 mouth ity of 17:20: daily. [place] [address] Medical Branch pantoprazol 2021-04 Yes 40mg Take 40 mg Univers e sodium 02 by mouth ity of (PANTOPRAZO 17:20: daily. [place] LE [place]AL) Medical Branch sildenafil 2021-04 Yes 20mg Take 20 mg U nivers 20 mg -02 by mouth 3 ity of tablet 17:20: (three) [place] [address] times Medical daily. Branch spironolact 2021-04 Yes 25mg Take 25 mg Univers one 25 mg -02 by mouth 2 ity of tablet 17:20: (two) [place] [address] times Medical daily. Branch liraglutide 2021-04 Yes .6mg inject 0.6 Univers (VICTOZA 1-02 mg under ity of 2-LYNDSEY) 0.6 17:20: the skin [place] mg/0.1 mL 51 daily. Medical (18 mg/3 Inject 1.8 Branc h mL) under the injection skin once daily albuterol 2021-04 Yes 2{puff} Inhale 2 U nivers sulfate 1-02 Puffs as ity of (PROAIR HFA 17:20: needed. [place] INHALE) Medical Branch aspirin 81 2021-04 Yes 81mg Take 81 mg U nivers mg chewable 1-02 by mouth ity of tablet 17:20: in the [place] 51 morning. Medical Branch fluticasone 2021-04- Inhale. Un bobby furoate 50 04-07 11-02 ity of mcg/actuati 14:18: 00:00 [place] on DsDv 26 :00 Medical Branch bisacodyL 2021-04 Yes [id number] 10mg Insert 1 Univers 10 mg 1-02 Suppositor ity of suppository 00:00: y into [facility] 00 rectum Medical every Branch morning. docusate 2021-04 Yes [id number] 100mg Take 1 Un bobby 100 mg 1-02 capsule by ity of capsule 00:00: mouth in [place] 00 the Medical morning Branch and 1 capsule in the evening. polyethylen 2021-04 Yes [id number] 17g Take 1 Univers e glycol 1-02 Packet by ity of 3350 17 00:00: mouth in [place] gram powder 00 the Medical morning Branch and 1 Packet in the evening. sennosides 2021-04 Yes [id number] 8.6mg Take 1 Univers 8.6 mg 1-02 tablet by ity of tablet 00:00: mouth in [place] [address] the Medical morning Branch and 1 tablet in the evening. bisacodyL 2021-04 Yes [id number] 10mg Insert 1 Univers 10 mg 1-02 Suppositor ity of suppository 00:00: y into [place] [address] rectum Medical every Branch morning. docusate 2021-04 Yes [id number] 100mg Take 1 Un bobby 100 mg 1-02 capsule by ity of capsule 00:00: mouth in [place] 00 the Medical morning Branch and 1 capsule in the evening. polyethylen 2021-04 Yes [id number] 17g Take 1 Univers e glycol 1-02 Packet by ity of 3350 17 00:00: mouth in [place] gram powder 00 the Medical morning Branch and 1 Packet in the evening. sennosides 2021-04 Yes [id number] 8.6mg Take 1 Univers 8.6 mg 1-02 tablet by ity of tablet 00:00: mouth in [place] [address] the Medical morning Branch and 1 tablet in the evening. bisacodyL 2021-04 Yes [id number] 10mg Insert 1 Univers 10 mg 1-02 Suppositor ity of suppository 00:00: y into [facility] 00 rectum Medical every Branch morning. docusate 2021-04 Yes [id number] 100mg Take 1 Un bobby 100 mg 04-07 capsule by ity of capsule 00:00: mouth in [place] 00 the morning Branch and 1 capsule in the evening. polyethylen 2021-04 Yes [id number] 17g Take 1 Univers e glycol 04-07 Packet by ity of 3350 17 00:00: mouth in [place] gram powder 00 the morning and 1 Packet in the evening. sennosides 2021-04 Yes [id number] 8.6mg Take 1 Univers 8.6 mg 04-07 tablet by ity of tablet 00:00: mouth in [place] 00 the morning and 1 tablet in the evening. bumetanide 2021-04 Yes 1mg 1 mg, Univer s (BUMEX) 04-06 Oral, ity of tablet 1 mg 14:00: DAILY, [place] 00 First dose Medical on [facility] 02/04/22 at 0900, Until Discontinu ed, Routine polyethylen 2021-04 Yes 17g 17 g, Unive rs e glycol 04-06 Oral, BID, ity o f 3350 powder 01:00: First dose [place] 17 g 00 (after Medical last Branch modificati on) on Thu02/03/22 at 2000, Until Discontinu ed, Routine lactulose 2021-04 No 30mL 30 mL, Unive rs (CEPHULAC) 02-04 Oral, ity of solution 30 22:00: 01:50 ONCE, 1 [place] mL 00 :00 dose, On [facility] 02/03/22 at 1700, Routine bisacodyL 2021-04 No 10mg 10 mg, Unive rs (DULCOLAX) 02-05 Rectal, ity o f suppository 14:00: 13:59 QAM, 2 [place] 10 mg 00 :00 doses, Medical First dose Branch on Thu02/03/22 at 0900, Last dose on Thu02/04/22 at 0900, Routine bumetanide 2021-04 No 1mg 1 mg, Slow Univers (BUMEX) 02-03 IV Push, ity of injection 1 14:00: 16:58 DAILY, [place] mg 00 :47 First dose Medical (after [place] last modificati on) on [facility] 02/03/22 at 0900, Until Discontinu ed, Routine sennosides 2021-04 Yes 8.6mg 8.6 mg, Uni vers (SENOKOT) 0-31 Oral, BID, ity of tablet 8.6 07:30: First dose [place] mg 00 on [facility] 02/03/22 Branch at 0230, Until Discontinu ed, Routine polyethylen 2021-04 No 17g 17 g, Univ ers e glycol 0-31 10-31 Oral, ity of 3350 powder 07:30: 16:18 DAILY, [place] 17 g 00 :23 First dose Medical on [facility] 02/03/22 at 0230, Until Discontinu ed, Routine lactulose 2021-04 No 30mL 30 mL, Unive rs (CEPHULAC) 0-30 10-30 Oral, ity of solution 30 18:45: 19:25 ONCE, 1 [place] mL 00 :00 dose, On [facility] 02/02/22 at 1345, Routine docusate 2021-04 Yes 100mg 100 mg, Unive rs (COLACE) 0-29 Oral, BID, ity o f capsule 100 17:15: First dose [place] mg 00 on [facility] 02/01/22 Branch at 1215, Until Discontinu ed, Routine bumetanide 2021-04 No 1mg 1 mg, Slow Univers (BUMEX) 0-28 10-30 IV Push, ity of injection 1 01:00: 20:07 BID, First [place] mg 00 :05 dose Medical (after Branch last modificati on) on [facility] 01/30/22 at 2000, Until Discontinu ed, Routine fluticasone 2021-04 Yes 1{spray 1 [place], Univers propionate 0-25 } Nasal, ity of 50 14:00: DAILY, [place] mcg/actuati 00 First dose Me dical on nasal on [facility] Branch spray 1 01/28/22 [place] at 0900, Until Discontinu ed, Routine bumetanide 2021-04 No 1mg 1 mg, Slow Univers (BUMEX) 0-24 10-27 IV Push, ity of injection 1 18:15: 17:56 Q24H, [place] mg 00 :30 First dose Medical on Thu [place] 01/27/22 at 1315, Until Discontinu ed, Routine Sliding 2021-04 Yes Subcutaneo Univ ers Scale 0-24 us, TID ity of Insulin - 17:00: MEALS+HS, [place] as Lispro 00 First dose Medical (HumaLOG) + on Thu [place] [facility] 01/27/22 Testing at 1200, Until Discontinu ed, Routine dextrose 2021-04 Yes 250mL 250 mL, IV Un bobby 10% (D10W) 0-24 Infusion, ity of bolus 16:26: PRN - SEE [place] infusion 25 INSTRUCTIO Medic al 250 mL NS, Branch Administer over 60 Minutes, Other, If blood glucose is < or = 70 mg/dL and patient is unable to swallow or has mental status changes, Starting on Thu01/27/22 at 1126
If blood glucose is < or = 70 mg/dL and patient is unable to swallow or has mental status changes (Give glucagon order if patient needs fluid restrictio n): IF IV access available: Dextrose 10%. 1. 125 mL (? bag) of D10W IV infusion - equivalent to 12.5 g dextrose 2. Blood glucose - draw blood glucose 15 minutes after D10W Administra tion. 3. If blood glucose is < 80 mg/dL, repeat.
glucagon 2021-04 Yes 1mg 1 mg, Univers (GLUCAGEN 0-24 Intramuscu ity of DIAGNOSTIC 16:26: [place], PRN, [place] KIT) 21 Starting Medical injection 1 on Thu [place] mg 01/27/22 at 1126, Until Discontinu ed, RONI, Blood Glucose < or = 70 mg/dL and patient is unable to swallow or has mental changes. ALPRAZolam 2021-04 Yes .25mg 0.25 mg, Un bobby (XANAX) 0-24 Oral, ity of tablet 0.25 16:26: BIDPRN, [place] mg 02 Starting Medical on Thu [place] 01/27/22 at 1126, Until Discontinu ed, Routine, anxiety pantoprazol 2021-04 Yes 40mg 40 mg, Univ ers e 0-24 Oral, ity of (PROTONIX) 14:00: DAILY, [place] EC tablet 00 First dose Medi ernie 40 mg on [facility] 01/27/22 at 0900, Until Discontinu ed citalopram 2021-04 Yes 40mg 40 mg, Unive rs (CELEXA) 0-24 Oral, ity of tablet 40 14:00: DAILY, [place] mg 00 First dose Medical on [facility] 01/27/22 at 0900, Until Discontinu ed, Routine atorvastati 2021-04 Yes 10mg 10 mg, Univ ers n (LIPITOR) 0-24 Oral, ity of tablet 10 14:00: DAILY, [place] mg 00 First dose Medical on [facility] 01/27/22 at 0900, Until Discontinu ed, Routine aspirin 2021-04 Yes 81mg 81 mg, Univers chewable 0-24 Oral, ity of tablet 81 14:00: DAILY, [place] mg 00 First dose Medical on [facility] 01/27/22 at 0900, Until Discontinu ed, Routine enoxaparin 2021-04 Yes 40mg 40 mg, Unive rs (LOVENOX) 0-24 Subcutaneo ity of injection 14:00: [place], DAILY, [place] 40 mg 00 First dose Medical on [facility] 01/27/22 at 0900, Until Discontinu ed, Routine carvediloL 2021-04 Yes 3.125mg 3.125 mg, Univers (COREG) 0-24 Oral, BID ity of tablet 13:00: MEALS, [place] 3.125 mg 00 First dose Medic al on [facility] 01/27/22 at 0800, Until Discontinu ed, Routine ondansetron 2021-04 Yes 4mg 4 mg, Slow Univers (ZOFRAN 0-24 IV Push, ity of (PF)) 09:49: Q6HPRN, [place] injection 4 55 Starting Medi ernie mg on [facility] 01/27/22 at 0449, Until Discontinu ed, Routine, Nausea and Vomiting (N/V) acetaminoph 2021-04 Yes 650mg 650 mg, Un bobby en 0-24 Oral, ity of (TYLENOL) 05:49: Q6HPRN, [place] tablet 650 39 Starting Medic al mg on [facility] 01/27/22 at 0049, Until Discontinu ed, Routine, Pain (scale 1-3) ipratropium 2021-04 Yes 3mL 3 mL, Unive rs -albuteroL 0-24 Inhalation ity of (DUONEB) 01:00: , QID, [place] 0.5 mg-3 00 First dose Medic al mg(2.5 mg on [facility] base)/3 mL 01/26/22 nebulizer at 1999, solution 3 Until mL Discontinu ed, Routine sildenafil 2021-04 Yes 20mg 20 mg, Unive rs (REVATIO) 0-24 Oral, TID, ity of tablet 20 01:00: First dose [place] mg 00 on [facility] 01/26/22 Branch at 1999, Until Discontinu ed, Routine spironolact 2021-04 Yes 25mg 25 mg, Univ ers one 0-24 Oral, BID, ity of (ALDACTONE) 01:00: First dose [place] tablet 25 00 on [facility] mg 01/26/22 Branch at 1999, Until Discontinu ed, Routine fluticasone 2021-04 Yes 1{puff} 1 Puff, Univers propionate 0-24 Inhalation ity of (FLOVENT) 01:00: , Q12H, [place] 110 00 First dose Medical mcg/actuati on [facility] on inhaler 01/26/22 1 Puff at 1999, Until Discontinu ed
Is this order for a patient with suspected or confirmed COVID-19 infection? No
Does this order have Pulmonary/ Critical Care approval? Yes predniSONE 2021-04- No 40mg 40 mg, Univ ers (DELTASONE) 0-01-31 Oral, ity of tablet 40 00:15: 13:44 DAILY, 6 [place] mg 00 :00 doses, Medical First dose Branch on [place] 01/26/22 at 1915, Last dose on Thu01/31/22 at 0900, Routine acetaminoph 2021-04 No 1000mg 1,000 mg, Univers en 01-26 Oral, ity of (TYLENOL) 19:15: 19:02 ONCE, 1 [place] tablet 00 :00 dose, On Medical 1,000 mg [facility] 01/26/22 at 1415, RONI methylpredn 2021-04 No 125mg 125 mg, U nivers isolone sod 01-26 Intravenou i ty of succ 18:30: 18:29 s, ONCE, 1 [place] (SOLU-MEDRO 00 :00 dose, On Medi ernie L) [place] Branch injection 01/26/22 125 mg at 1330, STAT furosemide 2021-04 No 40mg 40 mg, IV U nivers (LASIX) 01-26 Push, ity of injection 17:30: 18:43 ONCE, 1 [place] 40 mg 00 :00 dose, On Medical [place] Branch 01/26/22 at 1230, RONI ipratropium 2021-04- No 3mL 3 mL, Univ ers -albuteroL 01-26 Inhalation it y of (DUONEB) 17:00: 18:22 , QID, [place] 0.5 mg-3 00 :49 First dose Medic al mg(2.5 mg on [facility] base)/3 mL 01/26/22 nebulizer at 1200, solution 3 Until mL Discontinu ed, RONI ondansetron 2021-04 No 4mg 4 mg, Slow Univers (ZOFRAN 01-26 IV Push, ity of (PF)) 15:15: 15:08 ONCE, 1 [place] injection 4 00 :00 dose, On Medi ernie mg [place] Branch 01/26/22 at 1015, RONI FENTanyl PF No 75ug 75 mcg, Un bobby (SUBLIMAZE 08-05 Intramuscu it y of (PF)) 02:00: 01:12 lar, ONCE, [place] injection 00 :00 1 dose, On Medi ernie 75 mcg [place] 08/04/21 Branch at 2100, Routine acetaminoph Yes [id number] 1{tbl} Take 1 Un bobby en-codeine 5-01 tablet by ity of (TYLENOL-CO 00:00: mouth [place] DEINE #3) 00 every 4 Medical 300-30 mg (four) Branch tablet hours as needed for Pain (scale 7-10). Indication s: acute pain methocarbam Yes [id number] 750mg Take 1.5 Univers oL 500 mg 5-01 tablets by ity of tablet 00:00: mouth [place] 00 every 6 Medical (six) Branch hours as needed for Pain (scale 7-10) (MUSCLE SPASM). acetaminoph 2021- No [id number] 1{tbl} Take 1 U nivers en-codeine 08-04 tablet by ity of (TYLENOL-CO 00:00: 00:00 mouth [place] DEINE #3) 00 :00 every 4 Medical 300-30 mg (four) Branch tablet hours as needed for Pain (scale 7-10). Indication s: acute pain methocarbam 2021- No [id number] 750mg Take 1.5 Univers oL 500 mg 08-04 tablets by ity of tablet 00:00: 00:00 mouth [place] 00 :00 every 6 Medical (six) Branch hours as needed for Pain (scale 7-10) (MUSCLE SPASM). albuterol Yes 2.5mg Inhale 2.5 U nivers 2.5 mg /3 3-16 mg every 4 ity of mL (0.083 16:36: (four) [place] %) 27 hours as Medical nebulizer needed for Bran ch solution Wheezing or Shortness of Breath. ALPRAZolam Yes .25mg Take 0.25 U nivers 0.25 mg 3-16 mg by ity of tablet 16:36: mouth as [place] [address] needed. Medical Branch atorvastati Yes 10mg Take 10 mg Univers n 10 mg 3-16 by mouth ity of tablet 16:36: daily. [place] [address] Medical Branch fluticasone Yes 1{puff} Inhale 1 Univers furoate-edward 3-16 Puff ity of anteroL 16:36: daily. [place] ([place] [id number] Medical ELLIPTA) Branch 100-25 mcg/dose DsDv bumetanide Yes 1mg Take 1 mg Un bobby 1 mg tablet 3-16 by mouth ity of 16:36: daily. [place] [address] Medical Branch carvediloL Yes 3.125mg Take 3.125 Univers 3.125 mg 3-16 mg by ity of tablet 16:36: mouth 2 [place] [address] (two) Medical times Branch daily with meals. citalopram Yes 40mg Take 40 mg U nivers 40 mg 3-16 by mouth ity of tablet 16:36: daily. [place] [address] Medical Branch fluticasone Yes Inhale. Uni vers furoate 50 3-16 ity of mcg/actuati 16:36: [place] on DsDv 27 Medical Branch KCL Yes Take by Univers (KLOR-CON 3-16 mouth ity of M20) 20 mEq 16:36: [place]. [place] tablet [place] pantoprazol Yes 40mg Take 40 mg Univers e sodium 3-16 by mouth ity of (PANTOPRAZO 16:36: daily. [place] LE [place]AL) 27 Medical Branch sildenafil Yes 20mg Take 20 mg U nivers 20 mg 3-16 by mouth 3 ity of tablet 16:36: (three) [place] 27 times Medical daily. Branch spironolact Yes 25mg Take 25 mg Univers one 25 mg 3-16 by mouth 2 ity of tablet 16:36: (two) [place] 27 times Medical daily. Branch liraglutide Yes .6mg inject 0.6 Univers (VICTOZA 3-16 mg under ity of 2-LYNDSEY) 0.6 16:36: the skin Louie as mg/0.1 mL 27 daily. Medical (18 mg/3 Inject 1.8 Branc h mL) under the injection skin once daily albuterol Yes 2.5mg Inhale 2.5 U nivers 2.5 mg /3 3-16 mg every 4 ity of mL (0.083 16:36: (four) [place] [facility]) 27 hours as Medical nebulizer needed for Bran ch solution Wheezing or Shortness of Breath. ALPRAZolam Yes .25mg Take 0.25 U nivers 0.25 mg 3-16 mg by ity of tablet 16:36: mouth as [place] [address] needed. Medical Branch atorvastati Yes 10mg Take 10 mg Univers n 10 mg 3-16 by mouth ity of tablet 16:36: daily. [place] [address] Medical Branch fluticasone Yes 1{puff} Inhale 1 Univers furoate-edward 3-16 Puff ity of anteroL 16:36: daily. [place] (BREO 27 Medical ELLIPTA) Branch 100-25 mcg/dose DsDv bumetanide Yes 1mg Take 1 mg Un bobby 1 mg tablet 3-16 by mouth ity of 16:36: daily. [place] [address] Medical Branch carvediloL Yes 3.125mg Take 3.125 Univers 3.125 mg 3-16 mg by ity of tablet 16:36: mouth 2 [place] 27 (two) Medical times Branch daily with meals. citalopram Yes 40mg Take 40 mg U nivers 40 mg 3-16 by mouth ity of tablet 16:36: daily. [place] [address] Medical Branch fluticasone Yes Inhale. Uni vers furoate 50 3-16 ity of mcg/actuati 16:36: [place] on DsDv 27 Medical Branch KCL Yes Take by Univers (KLOR-CON 3-16 mouth ity of M20) 20 mEq 16:36: [place]. [place] tablet 27 Medical Branch pantoprazol Yes 40mg Take 40 mg Univers e sodium 3-16 by mouth ity of (PANTOPRAZO 16:36: daily. [place] LE [place]AL) Medical Branch sildenafil Yes 20mg Take 20 mg U nivers 20 mg 3-16 by mouth 3 ity of tablet 16:36: (three) [place] 27 times Medical daily. Branch spironolact Yes 25mg Take 25 mg Univers one 25 mg 3-16 by mouth 2 ity of tablet 16:36: (two) [place] 27 times Medical daily. Branch liraglutide Yes .6mg inject 0.6 Univers (VICTOZA 3-16 mg under ity of 2-LYNDSEY) 0.6 16:36: the skin [place] as mg/0.1 mL 27 daily. Medical (18 mg/3 Inject 1.8 Branc h mL) under the injection skin once daily Immunizations Ordered Filled Immunization Date Status Comments [facility] e Immunization Name Name Influenza Virus 2021-06-19 Completed Universit y of Vaccine Quad IM, 00:00:00 [place] Me dical Preserv and ABX Branch Free 6 MO-64 YRS Influenza Virus 2021-06-19 Completed Universit y of Vaccine Quad IM, 00:00:00 [place] Me dical Preserv and ABX Branch Free 6 MO-64 YRS Influenza Virus 2021-06-19 Completed Universit y of Vaccine Quad IM, 00:00:00 [place] Me dical Preserv and ABX Branch Free 6 MO-64 YRS Influenza Virus 2021-06-19 Completed Universit y of Vaccine Quad IM, 00:00:00 [facility] dical Preserv and ABX Branch Free 6 MO-64 YRS Influenza Virus 2021-06-19 Completed Universit y of Vaccine Quad IM, 00:00:00 [facility] dical Preserv and ABX Branch Free 6 MO-64 YRS Influenza Virus 2018-12-14 Completed Universit y of Vaccine 00:00:00 [facility] Influenza Virus 2018-12-14 Completed Universit y of Vaccine 00:00:00 [facility] Influenza Virus 2018-12-14 Completed Universit y of Vaccine 00:00:00 [facility] Influenza Virus 2018-12-14 Completed Universit y of Vaccine 00:00:00 [facility] Influenza Virus 2018-12-14 Completed Universit y of Vaccine 00:00:00 [facility] Td 2017-05-20 Completed University of 00:00:00 [facility] Td 2017-05-20 Completed University of 00:00:00 [facility] Td 2017-05-20 Completed University of 00:00:00 [facility] Td 2017-05-20 Completed University of 00:00:00 [facility] Td 2017-05-20 Completed University of 00:00:00 [facility] Vital Signs Vital Name Observation Time Observation Value Comments Source Systolic blood 2022-02-26 00:47:00 128 mm[Hg] Univer sity of pressure [facility] Diastolic blood 2022-02-26 00:47:00 75 mm[Hg] Unive rsity of pressure [facility] Heart rate 2022-02-26 00:47:00 74 /min [facility] Respiratory rate 2022-02-26 00:47:00 16 /min [facility] Oxygen saturation in 2022-02-26 00:47:00 98 /min [facility] Arterial blood by [facility] Pulse oximetry Branch Body temperature 2022-02-25 22:51:00 36.33 Priscila [facility] height 2022-02-25 22:51:00 152.4 cm [facility] Body weight 2022-02-25 22:51:00 99.338 kg [facility] BMI 2022-02-25 22:51:00 42.77 kg/m2 [facility] Respiratory rate 2022-02-05 21:16:00 19 /min Univ ersity of [place] [facility] Oxygen saturation in 2022-02-05 21:16:00 91 /min University of Arterial blood by [facility] ernie Pulse oximetry Branch Systolic blood 2022-02-05 21:00:00 95 mm[Hg] Univer sity of pressure [place] [facility] Diastolic blood 2022-02-05 21:00:00 59 mm[Hg] Unive rsity of pressure [place] [facility] Heart rate 2022-02-05 21:00:00 97 /min Universi ty of [place] [facility] Body temperature 2022-02-05 21:00:00 36.67 Priscila Univ ersity of [place] [facility] Body weight 2022-02-05 13:00:00 98.5 kg Universi ty of [place] [facility] BMI 2022-02-05 13:00:00 42.41 kg/m2 Universi ty [facility] [place] [facility] Body height 2022-01-26 20:10:00 152.4 cm Universi ty [facility] [place] [facility] Systolic blood 2021-08-05 04:00:00 142 mm[Hg] Univer sity of pressure [place] [facility] Diastolic blood 2021-08-05 04:00:00 69 mm[Hg] Unive rsity of pressure [place] [facility] Heart rate 2021-08-05 04:00:00 70 /min [facility]i ty [facility] [place] [facility] Respiratory rate 2021-08-05 04:00:00 20 /min Univ ersity of [place] [facility] Oxygen saturation in 2021-08-05 04:00:00 96 /min University of Arterial blood by [facility] Pulse oximetry Branch Body temperature 2021-08-05 00:37:00 37.33 Priscila Univ ersity of [place] [facility] Body height 2021-08-05 00:37:00 165.1 cm Universi ty [facility] [place] [facility] Body weight 2021-08-05 00:37:00 99.791 kg [facility]i ty [facility] [place] [facility] BMI 2021-08-05 00:37:00 36.61 kg/m2 Universi ty [facility] [place] [facility] Systolic blood 2021-06-19 20:03:00 126 mm[Hg] Univer sity of pressure [place] [facility] Diastolic blood 2021-06-19 20:03:00 77 mm[Hg] Unive rsity of pressure [place] [facility] Heart rate 2021-06-19 20:03:00 88 /min [facility] Body weight 2021-06-19 20:03:00 100.245 kg [facility] BMI 2021-06-19 20:03:00 43.16 kg/m2 [facility] Oxygen saturation in 2021-06-19 20:03:00 95 /min [facility] blood by [facility] Pulse oximetry Branch Procedures Procedure Date / Time Performing Clinician Source Performed BASIC METABOLIC PANEL 2022-02-25 23:26:00 Kurtis Sanders [facility] (NA, K, CL, CO2, GLUCOSE, Medica l Branch BUN, CREATININE, CA) CBC WITH DIFF 2022-02-25 23:26:00 Kurtis Sanders [place] o [facility] POCT GLUCOSE (AUTOMATED) 2022-02-25 23:01:00 Kurtis Sanders [facility] POCT GLUCOSE (AUTOMATED) 2022-02-05 21:10:00 Enoc Ware [facility] COVID-19 (ID NOW RAPID 2022-02-05 19:02:00 Moni Randall [facility] TESTING) [facility] POCT GLUCOSE (AUTOMATED) 2022-02-05 16:10:00 Enoc Ware [facility] POCT GLUCOSE (AUTOMATED) 2022-02-05 12:31:00 Enoc Ware [facility] BASIC METABOLIC PANEL 2022-02-05 08:37:00 Shanna [facility] (NA, K, CL, CO2, GLUCOSE, Medica l Branch BUN, CREATININE, CA) CBC WITHOUT DIFF 2022-02-05 08:37:00 Shanna [facility] POCT GLUCOSE (AUTOMATED) 2022-02-05 02:12:[address] [facility] POCT GLUCOSE (AUTOMATED) 2022-02-04 21:25:[address] [facility] [address] [facility] POCT GLUCOSE (AUTOMATED) 2022-02-04 16:39:[address] [facility] POCT GLUCOSE (AUTOMATED) 2022-02-04 12:44:00 [facility] ([facility]) 2022-02-04 01:27:[address] [facility] [address] [facility] XR ABDOMEN 1 VW 2022-02-03 21:50:56 Tonia [facility] POCT GLUCOSE (AUTOMATED) 2022-02-03 16:45:[address] [facility] [address] [facility] POCT GLUCOSE (AUTOMATED) 2022-02-03 13:02:00 [facility] MAGNESIUM 2022-02-03 09:37:00 Tonia [facility] BASIC METABOLIC PANEL 2022-02-03 09:37:00 Tonia [facility] (NA, K, CL, CO2, GLUCOSE, Medica l Branch BUN, CREATININE, CA) N-TERMINAL PRO-BNP 2022-02-03 09:37:00 Tonia [facility] POCT GLUCOSE (AUTOMATED) 2022-02-03 01:31:00 Enoc Ware [facility] POCT GLUCOSE (AUTOMATED) 2022-02-02 21:29:[address] [facility] [address] [facility] POCT GLUCOSE (AUTOMATED) 2022-02-02 16:06:00 Enoc Ware [facility] POCT GLUCOSE (AUTOMATED) 2022-02-02 13:03:[address] [facility] [address] [facility] MAGNESIUM 2022-02-02 08:35:00 Tonia [facility] BASIC METABOLIC PANEL 2022-02-02 08:35[facility] ([facility], K, CL, CO2, GLUCOSE, Medica l Branch BUN, CREATININE, CA) CBC WITH DIFF 2022-02-02 08:35:00 Tonia [facility] N-TERMINAL PRO-BNP 2022-02-02 08:35:00 Tonia [facility] POCT GLUCOSE (AUTOMATED) 2022-02-02 01:32:00 [facility]SE ([facility]OM[facility]) 2022-02-01 21:25:00 [facility] POCT GLUCOSE (AUTOMATED) 2022-02-01 16:32:00 Enoc Ware versity [facility] POCT GLUCOSE (AUTOMATED) 2022-02-01 12:37:00 [facility] BASIC METABOLIC PANEL 2022-02-01 10:35:00 Domingo Hart [facility] (NA, K, CL, CO2, GLUCOSE, Medica l Branch BUN, CREATININE, CA) N-TERMINAL PRO-BNP 2022-02-01 10:35:00 Tonia [facility] POCT GLUCOSE (AUTOMATED) 2022-02-01 01:16:00 [facility] PO[facility] GLUCOSE (AUTOMATED) 2022-01-31 21:38:00 Enoc Ware [facility] POCT GLUCOSE (AUTOMATED) 2022-01-31 16:36:00 [facility]oc [facility] DUPLEX VENOUS LEGS 2022-01-31 14:43:00 Tonia [facility] BILATERAL - BY VASCULAR [facility] POCT GLUCOSE (AUTOMATED) 2022-01-31 12:18:[address] [facility] [address] [facility] MAGNESIUM 2022-01-31 09:58:00 Tonia [facility] BASIC METABOLIC PANEL 2022-01-31 09:58:00 Tonia [facility] (NA, K, CL, CO2, GLUCOSE, Medica l Branch BUN, CREATININE, CA) CBC WITH DIFF 2022-01-31 09:58:00 deann [facility] N-TERMINAL PRO-BNP 2022-01-31 09:58:00 Tonia [facility] POCT GLUCOSE (AUTOMATED) 2022-01-31 01:09:00 Enoc Ware [facility] POCT GLUCOSE (AUTOMATED) 2022-01-30 21:29:00 Enoc Ware Uni versity of [facility] POCT GLUCOSE (AUTOMATED) 2022-01-30 16:32:00 Enoc Ware Uni versity of [facility] POCT GLUCOSE (AUTOMATED) 2022-01-30 12:21:00 Enoc Ware Uni versity of [facility] Branch MAGNESIUM 2022-01-30 08:57:00 [place] BASIC METABOLIC PANEL 2022-01-30 08:57:00 Tanner [facility] (NA, K, CL, CO2, GLUCOSE, Medica l Branch BUN, CREATININE, CA) CBC WITH DIFF 2022-01-30 08:57:00 [place] [facility] N-TERMINAL PRO-BNP 2022-01-30 08:57:00 [facility] 2022-01-30 08:19:00 nEoc Ware Uni versity of [facility] POCT GLUCOSE (AUTOMATED) 2022-01-30 03:16:00 Enoc Ware Uni versity of [facility] POCT GLUCOSE (AUTOMATED) 2022-01-30 01:30:00 Enoc Ware Uni versity of [facility] POCT GLUCOSE (AUTOMATED) 2022-01-29 21:47:00 Enoc Ware Uni versity of [facility] POCT GLUCOSE (AUTOMATED) 2022-01-29 16:36:00 Enoc Ware Uni versity of [facility] POCT GLUCOSE (AUTOMATED) 2022-01-29 12:24:00 Enoc Ware Uni versity of [facility] BASIC METABOLIC PANEL 2022-01-29 08:48:00 Domingo Hart [facility] (NA, K, CL, CO2, GLUCOSE, Medica l Branch BUN, CREATININE, CA) CBC WITH DIFF 2022-01-29 08:48:00 [place] [facility] POCT GLUCOSE (AUTOMATED) 2022-01-29 00:52:00 Enoc Ware J Uni versity of [facility] POCT GLUCOSE (AUTOMATED) 2022-01-28 21:37:00 Enoc Ware [facility] POCT GLUCOSE (AUTOMATED) 2022-01-28 16:42:00 Enoc Ware [facility] POCT GLUCOSE (AUTOMATED) 2022-01-28 12:46:00 Enoc Ware [facility] XR CHEST 1 VW 2022-01-28 12:03:00 Domingo Hart [facility] MAGNESIUM 2022-01-28 08:58:00 [place] [facility] BASIC METABOLIC PANEL 2022-01-28 08:58:00 Domingo Hart [facility] (NA, K, CL, CO2, GLUCOSE, Medica l Branch BUN, CREATININE, CA) POCT GLUCOSE (AUTOMATED) 2022-01-28 01:22:00 Enoc Ware [facility] POCT GLUCOSE (AUTOMATED) 2022-01-27 21:17:00 Enoc Ware [facility] POCT GLUCOSE (AUTOMATED) 2022-01-27 16:39:00 Enoc Ware [facility] POCT GLUCOSE (AUTOMATED) 2022-01-27 12:17:00 Enoc Ware [facility] MRSA / MSSA SCREEN BY 2022-01-27 10:00:00 Domingo Hart [facility] PCR, NARES Medical Branch MAGNESIUM 2022-01-27 09:59:00 Domingo Hart [facility] BASIC METABOLIC PANEL 2022-01-27 09:59:00 Domingo Hart [facility] (NA, K, CL, CO2, GLUCOSE, Medica l Branch BUN, CREATININE, CA) CBC WITH DIFF 2022-01-27 09:59:00 Domingo Hart [facility] GLYCOSYLATED HEMOGLOBIN 2022-01-27 09:59:00 Domingo Hart [facility] (A1C) [facility] N-TERMINAL PRO-BNP 2022-01-27 09:59:00 Domingo Hart [facility] URINALYSIS 2022-01-26 23:08:00 Enoc Ware [facility] ACUTE CARE ARTERIAL BLOOD 2022-01-26 17:28:00 Enoc Ware [facility] RAPID INFLUENZA A/B 2022-01-26 15:33:00 Enoc Ware [facility] COVID-19 (ID NOW RAPID 2022-01-26 15:33:00 Enoc Ware [facility] TESTING) [facility] LAB ONLY COVID 2022-01-26 15:33:00 Enoc Ware [facility] INTERPRETATION [facility] XR CHEST 1 VW 2022-01-26 15:24:00 Enoc Ware [facility] CK (CREATINE KINASE) + MB 2022-01-26 15:06:00 [facility] 2022-01-26 15:06:00 Enoc Ware [facility] TROPONIN I 2022-01-26 15:06:00 Enoc Ware [facility] COMP. METABOLIC PANEL 2022-01-26 15:06:00 Enoc Ware [facility] ([id number]) [facility] CBC WITH DIFF 2022-01-26 15:06:00 Enoc Ware [facility] N-TERMINAL PRO-BNP 2022-01-26 15:06:00 Enoc Ware [facility] HB ECG ROUTINE & RHYTHM 2022-01-26 15:00:07 Enoc Ware [facility] XR FEMUR 2 VW LEFT 2021-08-05 01:28:00 Zachary Nicolas [facility] XR HIP 1 VW LEFT 2021-08-05 01:28:00 Zachary Nicolas [facility] XR KNEE <3 VW LEFT 2021-08-05 01:28:00 Zachary Nicolas [facility] FLU VACC ([id number]), 2021-06-19 20:45:38 Adriana Reynolds [facility] 2-64 YRS, .5ML, IM, QUAD Medical Branch (FLUCELVAX) Encounters Start End Encounter Admission Attending Care Care Encounter Source Date/Time Date/Time Type Type Clinicians Facility Department ID 2021-02-02 Emergency [facility] [id number] Univers 05:14:44 ity of [facility] 2022-04-15 2022-04-15 Outpatient R RODOLFO, [facility] [id number] Univers 15:00:00 15:00:00 ADRIANA batres [facility] 2022-03-18 2022-03-18 Outpatient R RODOLFO, [facility] [id number] Univers 09:00:00 09:00:00 ADRIANA bedoya o [facility] 2022-03-10 2022-03-10 Outpatient R RODOLFO, [facility] [id number] Univers 14:20:00 14:20:00 ADRIANA bedoya o [facility] 2022-02-25 2022-02-25 Emergency X SANDERS, [facility] ERT [id number] Univers 16:50:00 20:22:00 KURTIS ity [facility] 2022-02-25 2022-02-25 [facility] [id number] Univers 16:50:00 20:22:00 Kurtis S DARION [id number] i ty of [place] [id number] [facility] [id number] [facility] 084 Branch 2022-02-06 2022-02-06 Transition KEEGAN Thomas [id number] Univers 00:00:00 00:00:00 of Care Gio SILVEIRA [id number] ity of [place] [id number] [place] [id number] [facility] 403 Branch 2022-01-26 2022-02-05 Inpatient X RIGOBERTODEANN [facility] [id number] Univers 09:52:00 17:20:00 MONI itcinthia [facility] 2022-01-26 2022-02-05 [facility] Enoc Ware [facility] [id number] Univers 09:52:00 17:20:00 Encounter Moni Randall [id number] ity of [place] [id number] [facility] [id number] [facility] 080 Branch 2021-09-192021-09-19 Outpatient R RODOLFO, [facility] [id number] Univers 13:20:00 13:20:00 ADRIANA batres [facility] 2021-09-19 2021-09-19 Outpatient R RODOLFO, [facility] [id number] Univers 13:20:00 13:20:00 ADRIANA espinal [facility] 2021-08-04 2021-08-04 Emergency X [facility], [facility] ERT [id number] Univers 19:26:00 23:44:00 WAKILI ity of [facility] 2021-08-04 2021-08-04 Emergency Critical access hospital [id number] Univers 19:26:00 23:44:00 Zachary [place] [id number] ity [facility] [id number] [place] [id number] [facility] [address] [place] 2021-06-19 2021-06-19 Outpatient R RODOLFO, [facility] [id number] Univers 15:20:00 15:51:15 ADRIANA espinal [facility] 2021-06-19 2021-06-19 Office [facility] [id number] Univers 15:20:00 15:51:15 Visit Adriana DARION [id number] ity [facility] [id number] [place] [facility] [id number] [facility] 059 [facility] 2021-06-19 2021-06-19 Outpatient R RODOLFO, [facility] [id number] Univers 15:20:00 15:51:15 ADRIANA aureliano teddy [facility] 2021-06-19 2021-06-19 Orders Doctor JEROME [id number] Univers 00:00:00 00:00:00 Only Unassigned, ROLAN [id number] ity of [place] [facility] [id number] Louie as [id number] [facility] 009 Branch 2021-06-03 2021-06-03 Orders Doctor JEROME [id number] Univers 00:00:00 00:00:00 Only Unassigned, ROLAN [id number] ity of [place] [facility] [id number] Louie as [id number] [facility] 009 Branch 2021-01-04 2021-01-11 Hospital Ritika Zaldivar [facility] [id number] Univers 06:09:00 15:41:00 Encounter Govind Emeli Murray [facility] [id number] .10 ity of [place] Kishore Riley [id number] Abiola Vasquez [id number] [address] ([facility]) 2021-01-04 2021-01-11 [facility] [id number] Univers 06:09:00 15:41:00 ABIOLA ity of [facility] 2020-02-17 2020-02-17 Letter Mansi Hurley [id number] Univers 00:00:00 00:00:00 (Out) ROLAN [id number] it y of HOSPITAL [id number] Louie as [id number] [facility] 019 Branch 2020-02-16 2020-02-16 Emergency Tamie Townsend [facility] [id number] Univers 18:59:00 19:42:00 Melida [place] [id number] i ty of [place] [id number] [facility] [id number] [facility] 084 Branch 2018-11-02 2018-11-02 Orders Doctor JEROME [id number] 00:00:00 00:00:00 Only Unassigned, ROLAN 350.1.13.10 [place] [facility] 4.2.7.2.686 [id number] 2018-11-02 2018-11-02 Orders Doctor JEROME [id number] Univers 00:00:00 00:00:00 Only Unassigned, ROLAN [id number] ity of [place] [facility] [id number] Louie as [id number] [address] Results Test Description Test Time Test Comments Results Result Comments Source BASIC METABOLIC PANEL (NA, K, CL, CO2, GLUCOSE, BUN, 2022-02 00:02:06 CREATININE, CA) Test Item Value Reference Range Interpretation Comme nts NA (test code = 9762445652) 139 mmol/L 135-145 K (test code = 9301245400) 3.7 mmol/L 3.5-5.0 CL (test code = 0755242242) 99 mmol/L 98-108 CO2 TOTAL (test code = 9367826422) 30 mmol/L 23-31 AGAP (test code = 6285537268) 2-16 BUN (test code = 7175831572) 15 mg/dL 7-23 GLUCOSE (test code = 7659381787) 111 mg/dL 70-110 H CREATININE (test code = 0.61 mg/dL 0.50-1.04 9030939355) CALCIUM (test code = 7982557433) 8.4 mg/dL 8.6-10.6 L eGFR (test code = 6318082532) mL/min/1.73m2 RANDOLPH (test code = RANDOLPH) Association of Glomerular Filtration Rate (GFR) and Staging of Kidney Disease* + +-------- + ------+| GFR (mL/min/1.73 m2) ?| With Kidney Damage ?| ?Without Kidney Damage+ +-- + +| ?>90 ?| ?Stage one ?| ? Normal ?+ +------- + -------+| ?60-89 ?| ?Stage two ?| ? Decreased GFR ? + +-------- + ------+| ?30-59 ?| ?Stage three ?| ? Stage three ? + +-------- + ------+| ?15-29 ?| ?Stage four ? | ? Stage four ?+ +------- + -------+| ?<15 (or dialysis) ? ?| ?Stage five ? | ? Stage five ?+ +------- + -------+ *Each stage assumes the associated GFR [...] or abnormalities in imaging tests). Lab Interpretation (test code = Abnormal 29592-5) [facility] WITH [id number] 23:49:02 Test Item Value Reference Range Interpretation Comments [...] as normal/abnormal . HGB (test code = 12.6 g/dL 11.6-15.0 718-7) HCT (test code = 39.9 % 35.7-45.2 4544-3) MCV (test code = 85.3 fL 80.6-95.5 787-2) MCH (test code = 26.9 pg 25.9-32.8 785-6) MCHC (test code = 31.6 g/dL 31.6-35.1 786-4) RDW-SD (test code = 48.0 fL 39.0-49.9 85376-6) RDW-CV (test code = 15.6 % 12.0-15.5 H 788-0) PLT (test code = See_Comment [Automated 777-3) message] The sy stem which generated this result transmitted reference range : 166 - 358 10*3/ ?L. The reference r angel was not used to interpret this result as normal/abnormal . MPV (test code = 9.9 fL 9.5-12.9 77499-4) NRBC/100 WBC (test See_Comment [Automat ed code = 9306458759) message] The system which generated this result transmitted reference range : 0.0 - 10.0 /100 WBCs. The refer ence range was not u sed to interpret th is result as normal/abnormal . NRBC x10^3 (test code See_Comment [Auto mated = 7411805692) message] The s ystem which generated this result transmitted reference range : 10*3/?L. The reference range was not used to interpret this result as normal/abnormal . GRAN MAT (NEUT) % 62.8 % (test code = 770-8) IMM GRAN % (test code 0.20 % = 0606358647) LYMPH % (test code = 25.2 % 736-9) MONO % (test code = 8.5 % 5905-5) EOS % (test code = 3.0 % 713-8) BASO % (test code = 0.3 % 706-2) GRAN MAT x10^3(ANC) 3.94 10*3/uL 1.88-7.09 (test code = 1355276356) IMM GRAN x10^3 (test 0.00-0.06 code = 9894448660) LYMPH x10^3 (test code 1.58 10*3/uL 1.32-3.29 = 731-0) MONO x10^3 (test code 0.53 10*3/uL 0.33-0.92 = 742-7) EOS x10^3 (test code = 0.19 10*3/uL 0.03-0.39 711-2) BASO x10^3 (test code 0.01-0.07 = 704-7) Lab Interpretation Abnormal (test code = 15608-3) [facility] GLUCOSE (AUTOMATED)2022-02-25 23:09:46 Test Item Value Reference Range Interpretation Comments POCT GLU (test code = 5475178238) 128 mg/dL 70-110 H Lab Interpretation (test code = Abnormal 90373-8) [facility] GLUCOSE (AUTOMATED)2022-02-05 22:00:25 Test Item Value Reference Range Interpretation Comments POCT GLU (test code = 2509919958) 187 mg/dL 70-110 H Lab Interpretation (test code = Abnormal 84065-8) [facility] GLUCOSE (AUTOMATED)2022-02-05 16:31:40 Test Item Value Reference Range Interpretation Comments POCT GLU (test code = 8607855658) 91 mg/dL 70-110 Lab Interpretation (test code = Normal 88276-1) [facility] 12:59:16 Test Item Value Reference Range Interpretation Comments POCT GLU (test code = 0698621898) 249 mg/dL 70-110 H Lab Interpretation (test code = Abnormal 23861-9) [facility] GLUCOSE (AUTOMATED)2022-02-05 02:13:50 Test Item Value Reference Range Interpretation Comments POCT GLU (test code = 6003235284) 117 mg/dL 70-110 H Lab Interpretation (test code = Abnormal 28364-0) [facility] GLUCOSE (AUTOMATED)2022-02-04 21:29:42 Test Item Value Reference Range Interpretation Comments POCT GLU (test code = 1991831041) 200 mg/dL 70-110 H Lab Interpretation (test code = Abnormal 15366-3) [facility] GLUCOSE (AUTOMATED)2022-02-04 16:53:26 Test Item Value Reference Range Interpretation Comments POCT GLU (test code = 9956498504) 134 mg/dL 70-110 H Lab Interpretation (test code = Abnormal 23233-1) [facility] GLUCOSE (AUTOMATED)2022-02-04 12:50:59 Test Item Value Reference Range Interpretation Comments POCT GLU (test code = 0987200807) 129 mg/dL 70-110 H Lab Interpretation (test code = Abnormal 93481-9) [facility] GLUCOSE (AUTOMATED)2022-02-04 01:30:16 Test Item Value Reference Range Interpretation Comments POCT GLU (test code = 2469299790) 125 mg/dL 70-110 H Lab Interpretation (test code = Abnormal 51655-1) [facility] GLUCOSE (AUTOMATED)2022-02-03 17:25:06 Test Item Value Reference Range Interpretation Comments POCT GLU (test code = 1922771779) 140 mg/dL 70-110 H Lab Interpretation (test code = Abnormal 18213-4) [facility] GLUCOSE (AUTOMATED)2022-02-03 13:31:16 Test Item Value Reference Range Interpretation Comments POCT GLU (test code = 8573833222) 130 mg/dL 70-110 H Lab Interpretation (test code = Abnormal 44227-5) [facility] GLUCOSE (AUTOMATED)2022-02-03 13:26:28 Test Item Value Reference Range Interpretation Comments POCT GLU (test code = 2592458000) 116 mg/dL 70-110 H Lab Interpretation (test code = Abnormal 97750-3) [facility] GLUCOSE (AUTOMATED)2022-02-03 13:26:17 Test Item Value Reference Range Interpretation Comments POCT GLU (test code = 3324147829) 140 mg/dL 70-110 H Lab Interpretation (test code = Abnormal 14196-9) [facility] GLUCOSE (AUTOMATED)2022-02-03 13:26:17 Test Item Value Reference Range Interpretation Comments POCT GLU (test code = 5782198457) 115 mg/dL 70-110 H Lab Interpretation (test code = Abnormal 15151-5) [id number] 11:16:22 Test Item Value Reference Range Interpretation Comments NT-proBNP (test code 302 pg/mL See_Comment H [Autom ated = 8428377723) message] The system which generated this result transmitted reference range : <=125. The reference range was not used to interpret this result as normal/abnormal . RANDOLPH (test code = RANDOLPH) Biotin has been reported to cause a negative bias, interpret results relative to patient's use of biotin. Lab Interpretation Abnormal (test code = 65704-2) [facility] METABOLIC PANEL (NA, K, CL, CO2, GLUCOSE, BUN, CREATININE, CA)2022-02-03 11:14:42 Test Item Value Reference Range Interpretation Comments NA (test code = 135 mmol/L 135-145 3181287021) K (test code = 4.0 mmol/L 3.5-5.0 1242885079) CL (test code = 89 mmol/L 98-108 L 8722233262) CO2 TOTAL (test code = 38 mmol/L 23-31 H 4156473353) AGAP (test code = 2-16 6411428150) BUN (test code = 34 mg/dL 7-23 H 9498974897) GLUCOSE (test code = 126 mg/dL 70-110 H 8411265213) CREATININE (test code = 0.65 mg/dL 0.50-1.04 1716298554) CALCIUM (test code = 9.2 mg/dL 8.6-10.6 2029203610) eGFR (test code = mL/min/1.73m2 3024406730) RANDOLPH (test code = RANDOLPH) Association of [...] tests). Lab Interpretation Abnormal (test code = 55474-0) [facility] Test Item Value Reference Range Interpretation Comments MAGNESIUM (test code = 2644431655) 2.1 mg/dL 1.7-2.4 Lab Interpretation (test code = Normal 94492-9) [facility] GLUCOSE (AUTOMATED)2022-02-03 01:41:51 Test Item Value Reference Range Interpretation Comments POCT GLU (test code = 2821963392) 166 mg/dL 70-110 H Lab Interpretation (test code = Abnormal 85520-1) [facility] GLUCOSE (AUTOMATED)2022-02-02 23:09:29 Test Item Value Reference Range Interpretation Comments POCT GLU (test code = 9846400537) 129 mg/dL 70-110 H Lab Interpretation (test code = Abnormal 26028-1) [facility] 16:46:52 Test Item Value Reference Range Interpretation Comments POCT GLU (test code = 9592162064) 144 mg/dL 70-110 H Lab Interpretation (test code = Abnormal 20648-5) [id number] 10:19:50 Test Item Value Reference Range Interpretation Comments NT-proBNP (test code 366 pg/mL See_Comment H [Autom ated = 4139954955) message] The system which generated this result transmitted reference range : <=125. The reference range was not used to interpret this result as normal/abnormal . RANDOLPH (test code = RANDOLPH) Biotin has been reported to cause a negative bias, interpret results relative to patient's use of biotin. Lab Interpretation Abnormal (test code = 10146-1) [facility] METABOLIC PANEL (NA, K, CL, CO2, GLUCOSE, BUN, CREATININE, CA)2022-02-02 10:18:14 Test Item Value Reference Range Interpretation Comments NA (test code = 137 mmol/L 135-145 6815114443) K (test code = 3.8 mmol/L 3.5-5.0 9516045974) CL (test code = 91 mmol/L 98-108 L 8860199962) CO2 TOTAL (test code = 39 mmol/L 23-31 H 1629294865) AGAP (test code = 2-16 6086415708) BUN (test code = 34 mg/dL 7-23 H 7034070694) GLUCOSE (test code = 111 mg/dL 70-110 H 4376065477) CREATININE (test code = 0.68 mg/dL 0.50-1.04 8485943006) CALCIUM (test code = 9.0 mg/dL 8.6-10.6 7021925839) eGFR (test code = mL/min/1.73m2 4104187515) RANDOLPH (test code = RANDOLPH) Association of [...] tests). Lab Interpretation Abnormal (test code = 72209-3) [facility] 10:11:50 Test Item Value Reference Range Interpretation Comments MAGNESIUM (test code = 3734438622) 2.0 mg/dL 1.7-2.4 Lab Interpretation (test code = Normal 79374-0) [facility] WITH [id number] 09:54:06 Test Item Value Reference Range Interpretation Comments WBC (test code = See_Comment [Automated 9092-2) message] The sy stem which generated this result transmitted reference range : 4.30 - 11.10 10*3/?L. The reference range was not used to interpret this result as normal/abnormal . RBC (test code = See_Comment [Automated 827-2) message] The sy stem which generated this result transmitted reference range : 3.93 - 5.25 10*6/?L. The reference range was not used to interpret this result as normal/abnormal . HGB (test code = 13.6 g/dL 11.6-15.0 718-7) HCT (test code = 41.4 % 35.7-45.2 4544-3) MCV (test code = 82.0 fL 80.6-95.5 787-2) MCH (test code = 26.9 pg 25.9-32.8 785-6) MCHC (test code = 32.9 g/dL 31.6-35.1 786-4) RDW-SD (test code = 47.7 fL 39.0-49.9 76519-3) RDW-CV (test code = 15.9 % 12.0-15.5 H 788-0) PLT (test code = See_Comment [Automated 777-3) message] The sy stem which generated this result transmitted reference range : 166 - 358 10*3/ ?L. The reference r angel was not used to interpret this result as normal/abnormal . MPV (test code = 11.2 fL 9.5-12.9 66426-3) NRBC/100 WBC (test See_Comment [Automat ed code = 4645173932) message] The system which generated this result transmitted reference range : 0.0 - 10.0 /100 WBCs. The refer ence range was not u sed to interpret th is result as normal/abnormal . NRBC x10^3 (test code See_Comment [Auto mated = 6193342526) message] The s ystem which generated this result transmitted reference range : 10*3/?L. The reference range was not used to interpret this result as normal/abnormal . GRAN MAT (NEUT) % 63.2 % (test code = 770-8) IMM GRAN % (test code 0.40 % = 9751661707) LYMPH % (test code = 22.1 % 736-9) MONO % (test code = 8.9 % 5905-5) EOS % (test code = 5.1 % 713-8) BASO % (test code = 0.3 % 706-2) GRAN MAT x10^3(ANC) 6.63 10*3/uL 1.88-7.09 (test code = 2717297691) IMM GRAN x10^3 (test 0.04 10*3/uL 0.00-0.06 code = 8863870648) LYMPH x10^3 (test code 2.31 10*3/uL 1.32-3.29 = 731-0) MONO x10^3 (test code 0.93 10*3/uL 0.33-0.92 H = 742-7) EOS x10^3 (test code = 0.53 10*3/uL 0.03-0.39 H 711-2) BASO x10^3 (test code 0.03 10*3/uL 0.01-0.07 = 704-7) Lab Interpretation Abnormal (test code = 69352-8) [facility] GLUCOSE (AUTOMATED)2022-02-02 05:21:43 Test Item Value Reference Range Interpretation Comments POCT GLU (test code = 1041040993) 129 mg/dL 70-110 H Lab Interpretation (test code = Abnormal 11532-5) [facility] GLUCOSE (AUTOMATED)2022-02-01 12:39:39 Test Item Value Reference Range Interpretation Comments POCT GLU (test code = 7786145814) 108 mg/dL 70-110 Lab Interpretation (test code = Normal 07878-0) [facility] GLUCOSE (AUTOMATED)2022-02-01 12:37:02 Test Item Value Reference Range Interpretation Comments POCT GLU (test code = 0677681715) 116 mg/dL 70-110 H Lab Interpretation (test code = Abnormal 61500-2) [facility] GLUCOSE (AUTOMATED)2022-02-01 02:11:26 Test Item Value Reference Range Interpretation Comments POCT GLU (test code = 6511075636) 155 mg/dL 70-110 H Lab Interpretation (test code = Abnormal 80500-7) [facility] GLUCOSE (AUTOMATED)2022-01-31 22:09:48 Test Item Value Reference Range Interpretation Comments POCT GLU (test code = 7382479762) 152 mg/dL 70-110 H Lab Interpretation (test code = Abnormal 84547-8) [facility] GLUCOSE (AUTOMATED)2022-01-31 16:41:00 Test Item Value Reference Range Interpretation Comments POCT GLU (test code = 1647072455) 123 mg/dL 70-110 H Lab Interpretation (test code = Abnormal 50009-6) [facility] GLUCOSE (AUTOMATED)2022-01-31 16:09:25 Test Item Value Reference Range Interpretation Comments POCT GLU (test code = 7940712317) 114 mg/dL 70-110 H Lab Interpretation (test code = Abnormal 89913-0) [facility] 01:19:02 Test Item Value Reference Range Interpretation Comments POCT GLU (test code = 2050824300) 121 mg/dL 70-110 H Lab Interpretation (test code = Abnormal 16684-6) [facility] GLUCOSE (AUTOMATED)2022-01-30 21:34:59 Test Item Value Reference Range Interpretation Comments POCT GLU (test code = 1259665252) 150 mg/dL 70-110 H Lab Interpretation (test code = Abnormal 46243-6) [facility] GLUCOSE (AUTOMATED)2022-01-30 16:40:10 Test Item Value Reference Range Interpretation Comments POCT GLU (test code = 9865528604) 148 mg/dL 70-110 H Lab Interpretation (test code = Abnormal 62858-0) [facility] GLUCOSE (AUTOMATED)2022-01-30 08:22:26 Test Item Value Reference Range Interpretation Comments POCT GLU (test code = 8440238272) 226 mg/dL 70-110 H Lab Interpretation (test code = Abnormal 44612-2) [facility] GLUCOSE (AUTOMATED)2022-01-30 03:21:23 Test Item Value Reference Range Interpretation Comments POCT GLU (test code = 9750394077) 153 mg/dL 70-110 H Lab Interpretation (test code = Abnormal 32141-3) [facility] GLUCOSE (AUTOMATED)2022-01-30 01:36:53 Test Item Value Reference Range Interpretation Comments POCT GLU (test code = 9125158974) 206 mg/dL 70-110 H Lab Interpretation (test code = Abnormal 16265-0) [facility] GLUCOSE (AUTOMATED)2022-01-29 21:50:18 Test Item Value Reference Range Interpretation Comments POCT GLU (test code = 8425132807) 173 mg/dL 70-110 H Lab Interpretation (test code = Abnormal 14411-5) [facility] GLUCOSE (AUTOMATED)2022-01-29 16:43:39 Test Item Value Reference Range Interpretation Comments POCT GLU (test code = 3506426697) 132 mg/dL 70-110 H Lab Interpretation (test code = Abnormal 95189-0) [facility]29 12:55:52 Test Item Value Reference Range Interpretation Comments POCT GLU (test code = 4161264358) 117 mg/dL 70-110 H Lab Interpretation (test code = Abnormal 89534-9) [facility] (NA, K, CL, CO2, GLUCOSE, BUN, CREATININE, CA)2022-01-29 11:13:26 Test Item Value Reference Range Interpretation Comments NA (test code = 138 mmol/L 135-145 1210851245) K (test code = 3.8 mmol/L 3.5-5.0 5566504833) CL (test code = 95 mmol/L 98-108 L 7707238509) CO2 TOTAL (test code = 39 mmol/L 23-31 H 2807635585) AGAP (test code = 2-16 6311290788) BUN (test code = 34 mg/dL 7-23 H 5796680086) GLUCOSE (test code = 109 mg/dL 70-110 4267204008) CREATININE (test code = 0.61 mg/dL 0.50-1.04 8002296858) CALCIUM (test code = 8.5 mg/dL 8.6-10.6 L 9107801156) eGFR (test code = mL/min/1.73m2 5850999019) RANDOLPH (test code = RANDOLPH) Association of [...] tests). Lab Interpretation Abnormal (test code = 88140-7) [facility] WITH [id number] 09:22:52 Test Item Value Reference Range Interpretation Comments WBC (test code = See_Comment [Automated 8990-2) message] The sy stem which generated this result transmitted reference range : 4.30 - 11.10 10*3/?L. The reference range was not used to interpret this result as normal/abnormal . RBC (test code = See_Comment [Automated 129-8) message] The sy stem which generated this result transmitted reference range : 3.93 - 5.25 10*6/?L. The reference range was not used to interpret this result as normal/abnormal . HGB (test code = 10.9 g/dL 11.6-15.0 L 718-7) HCT (test code = 34.7 % 35.7-45.2 L 4544-3) MCV (test code = 84.0 fL 80.6-95.5 787-2) MCH (test code = 26.4 pg 25.9-32.8 785-6) MCHC (test code = 31.4 g/dL 31.6-35.1 L 786-4) RDW-SD (test code = 50.2 fL 39.0-49.9 H 20969-4) RDW-CV (test code = 16.3 % 12.0-15.5 H 788-0) PLT (test code = See_Comment [Automated 777-3) message] The sy stem which generated this result transmitted reference range : 166 - 358 10*3/ ?L. The reference r angel was not used to interpret this result as normal/abnormal . MPV (test code = 10.4 fL 9.5-12.9 46241-9) NRBC/100 WBC (test See_Comment [Automat ed code = 1797655313) message] The system which generated this result transmitted reference range : 0.0 - 10.0 /100 WBCs. The refer ence range was not u sed to interpret th is result as normal/abnormal . NRBC x10^3 (test code See_Comment [Auto mated = 5797788315) message] The s ystem which generated this result transmitted reference range : 10*3/?L. The reference range was not used to interpret this result as normal/abnormal . GRAN MAT (NEUT) % 61.7 % (test code = 770-8) IMM GRAN % (test code 0.30 % = 3338829429) LYMPH % (test code = 27.7 % 736-9) MONO % (test code = 9.8 % 5905-5) EOS % (test code = 0.4 % 713-8) BASO % (test code = 0.1 % 706-2) GRAN MAT x10^3(ANC) 4.87 10*3/uL 1.88-7.09 (test code = 7742684238) IMM GRAN x10^3 (test 0.00-0.06 code = 4769256362) LYMPH x10^3 (test code 2.18 10*3/uL 1.32-3.29 = 731-0) MONO x10^3 (test code 0.77 10*3/uL 0.33-0.92 = 742-7) EOS x10^3 (test code = 0.03 10*3/uL 0.03-0.39 711-2) BASO x10^3 (test code 0.01-0.07 = 704-7) Lab Interpretation Abnormal (test code = 61265-4) [facility] GLUCOSE (AUTOMATED)2022-01-29 01:24:49 Test Item Value Reference Range Interpretation Comments POCT GLU (test code = 1061269909) 131 mg/dL 70-110 H Lab Interpretation (test code = Abnormal 33066-4) [facility] GLUCOSE (AUTOMATED)2022-01-28 21:48:35 Test Item Value Reference Range Interpretation Comments POCT GLU (test code = 6314403622) 141 mg/dL 70-110 H Lab Interpretation (test code = Abnormal 72683-1) [facility] GLUCOSE (AUTOMATED)2022-01-28 17:09:49 Test Item Value Reference Range Interpretation Comments POCT GLU (test code = 2398726387) 191 mg/dL 70-110 H Lab Interpretation (test code = Abnormal 80462-8) [facility] GLUCOSE (AUTOMATED)2022-01-28 16:47:25 Test Item Value Reference Range Interpretation Comments POCT GLU (test code = 4749956654) 118 mg/dL 70-110 H Lab Interpretation (test code = Abnormal 50863-7) [facility] 02:27:41 Test Item Value Reference Range Interpretation Comments HGB A1C (test code = 6.0 % 4.0-5.7 H 4548-4) RANDOLPH (test code = RANDOLPH) Reference RangesNormal: <5.7%Prediabetes: 5.7 - 6.4%Diabetes: > 6.5% Lab Interpretation (test Abnormal code = 27220-4) [facility] GLUCOSE (AUTOMATED)2022-01-28 01:27:30 Test Item Value Reference Range Interpretation Comments POCT GLU (test code = 9704097376) 164 mg/dL 70-110 H Lab Interpretation (test code = Abnormal 23848-4) [facility] GLUCOSE (AUTOMATED)2022-01-27 21:25:26 Test Item Value Reference Range Interpretation Comments POCT GLU (test code = 0976727373) 149 mg/dL 70-110 H Lab Interpretation (test code = Abnormal 77764-2) [facility] GLUCOSE (AUTOMATED)2022-01-27 18:11:58 Test Item Value Reference Range Interpretation Comments POCT GLU (test code = 3267630429) 159 mg/dL 70-110 H Lab Interpretation (test code = Abnormal 14903-1) [facility] GLUCOSE (AUTOMATED)2022-01-27 12:22:16 Test Item Value Reference Range Interpretation Comments POCT GLU (test code = 5005402861) 160 mg/dL 70-110 H Lab Interpretation (test code = Abnormal 97713-7) [id number] 10:30:32 Test Item Value Reference Range Interpretation Comments NT-proBNP (test code 2640 pg/mL See_Comment H [Autom ated = 9852850467) message] The system which generated this result transmitted reference range : <=125. The reference range was not used to interpret this result as normal/abnormal . RANDOLPH (test code = RANDOLPH) Biotin has been reported to cause a negative bias, interpret results relative to patient's use of biotin. Lab Interpretation Abnormal (test code = 16229-5) [facility] METABOLIC PANEL (NA, K, CL, CO2, GLUCOSE, BUN, CREATININE, CA)2022-01-27 10:21:33 Test Item Value Reference Range Interpretation Comments NA (test code = 142 mmol/L 135-145 9193614555) K (test code = 4.6 mmol/L 3.5-5.0 6942171103) CL (test code = 97 mmol/L 98-108 L 5634624439) CO2 TOTAL (test code = 36 mmol/L 23-31 H 5757713732) AGAP (test code = 2-16 9865921295) BUN (test code = 25 mg/dL 7-23 H 5762914654) GLUCOSE (test code = 153 mg/dL 70-110 H 4869810271) CREATININE (test code = 0.50 mg/dL 0.50-1.04 4478031567) CALCIUM (test code = 8.9 mg/dL 8.6-10.6 3228281668) eGFR (test code = mL/min/1.73m2 7957119215) RANDOLPH (test code = RANDOLPH) Association of [...] tests). Lab Interpretation Abnormal (test code = 39999-1) [facility] 10:21:33 Test Item Value Reference Range Interpretation Comments MAGNESIUM (test code = 4339958068) 1.9 mg/dL 1.7-2.4 Lab Interpretation (test code = Normal 71057-7) [facility] WITH [id number] 10:18:11 Test Item Value Reference Range Interpretation Comments WBC (test code = See_Comment L [Automated 3190-2) message] The sy stem which generated this result transmitted reference range : 4.30 - 11.10 10*3/?L. The reference range was not used to interpret this result as normal/abnormal . RBC (test code = See_Comment [Automated 509-8) message] The sy stem which generated this result transmitted reference range : 3.93 - 5.25 10*6/?L. The reference range was not used to interpret this result as normal/abnormal . HGB (test code = 11.3 g/dL 11.6-15.0 L 718-7) HCT (test code = 36.6 % 35.7-45.2 4544-3) MCV (test code = 85.1 fL 80.6-95.5 787-2) MCH (test code = 26.3 pg 25.9-32.8 785-6) MCHC (test code = 30.9 g/dL 31.6-35.1 L 786-4) RDW-SD (test code = 51.7 fL 39.0-49.9 H 12865-4) RDW-CV (test code = 16.3 % 12.0-15.5 H 788-0) PLT (test code = See_Comment [Automated 777-3) message] The sy stem which generated this result transmitted reference range : 166 - 358 10*3/ ?L. The reference r angel was not used to interpret this result as normal/abnormal . MPV (test code = 10.1 fL 9.5-12.9 30439-3) NRBC/100 WBC (test See_Comment [Automat ed code = 6464919265) message] The system which generated this result transmitted reference range : 0.0 - 10.0 /100 WBCs. The refer ence range was not u sed to interpret th is result as normal/abnormal . NRBC x10^3 (test code See_Comment [Auto mated = 1326283078) message] The s ystem which generated this result transmitted reference range : 10*3/?L. The reference range was not used to interpret this result as normal/abnormal . GRAN MAT (NEUT) % 84.0 % (test code = 770-8) IMM GRAN % (test code 0.50 % = 7717767182) LYMPH % (test code = 13.8 % 736-9) MONO % (test code = 1.7 % 5905-5) EOS % (test code = 0.0 % 713-8) BASO % (test code = 0.0 % 706-2) GRAN MAT x10^3(ANC) 3.54 10*3/uL 1.88-7.09 (test code = 6621375045) IMM GRAN x10^3 (test 0.00-0.06 code = 3609225590) LYMPH x10^3 (test code 0.58 10*3/uL 1.32-3.29 L = 731-0) MONO x10^3 (test code 0.07 10*3/uL 0.33-0.92 L = 742-7) EOS x10^3 (test code = 0.03-0.39 L 711-2) BASO x10^3 (test code 0.01-0.07 = 704-7) Lab Interpretation Abnormal (test code = 56425-2) [facility] (CREATINE KINASE) + [id number] 15:57:42 Test Item Value Reference Range Interpretation Comments CK (test code = 23 U/L 33-194 L [id number]) CK-MB (test code = 0.64 ng/mL See_Comment [Automat ed 5617332039) message] The system which generated this result transmitted reference range : <=3.50. The reference range was not used to interpret this result as normal/abnormal . CKMB INDEX (test code 2.8 % 0.0-2.5 H = 9544066705) RANDOLPH (test code = RANDOLPH) Biotin has been reported to cause a negative bias, interpret results relative to patient's use of biotin. Lab Interpretation Abnormal (test code = 53798-8) [id number]:41[facility]25 Test Item Value Reference Interpretation Comments Range TROPONIN I (test 0.005 ng/mL See_Comment [Automated code = 0184977855) message] The system which generated this result [...] biotin. Lab Interpretation Normal (test code = 86384-9) [id number] 15:39:24 Test Item Value Reference Range Interpretation Comments NT-proBNP (test code 1040 pg/mL See_Comment H [Autom ated = 2308890093) message] The system which generated this result transmitted reference range : <=125. The reference range was not used to interpret this result as normal/abnormal . RANDOLPH (test code = RANDOLPH) Biotin has been reported to cause a negative bias, interpret results relative to patient's use of biotin. Lab Interpretation Abnormal (test code = 98468-6) [facility]. METABOLIC PANEL ([id number] 15:31:05 Test Item Value Reference Range Interpretation Comments NA (test code = 141 mmol/L 135-145 1978646623) K (test code = 4.0 mmol/L 3.5-5.0 8399314738) CL (test code = 101 mmol/L 98-108 5413238912) CO2 TOTAL (test code = 31 mmol/L 23-31 0914392267) AGAP (test code = 2-16 8654222409) BUN (test code = 23 mg/dL 7-23 9148397886) GLUCOSE (test code = 146 mg/dL 70-110 H 0860469151) CREATININE (test code = 0.56 mg/dL 0.50-1.04 8755077143) TOTAL BILI (test code = 1.3 mg/dL 0.1-1.1 H 8071349532) CALCIUM (test code = 8.9 mg/dL 8.6-10.6 2167531405) T PROTEIN (test code = 8.3 g/dL 6.3-8.2 H 9757419796) ALBUMIN (test code = 3.9 g/dL 3.5-5.0 4421556461) ALK PHOS (test code = 82 U/L 34-122 4328417285) ALTv (test code = 24 U/L 5-35 1742-6) AST(SGOT) (test code = 24 U/L 13-40 5754037424) eGFR (test code = mL/min/1.73m2 0989056939) RANDOLPH (test code = RANDOLPH) Association of [...] tests). Lab Interpretation Abnormal (test code = 15833-5) [facility]05 Test Item Value Reference Range Interpretation Comments LIPASE (test code = 9744680127) 64 U/L 0-220 Lab Interpretation (test code = Normal 64776-2) [facility] WITH [id number] 15:17:03 Test Item Value Reference Range Interpretation Comments WBC (test code = See_Comment [Automated 6590-2) message] The sy stem which generated this result transmitted reference range : 4.30 - 11.10 10*3/?L. The reference range was not used to interpret this result as normal/abnormal . RBC (test code = See_Comment [Automated 115-8) message] The sy stem which generated this result transmitted reference range : 3.93 - 5.25 10*6/?L. The reference range was not used to interpret this result as normal/abnormal . HGB (test code = 11.5 g/dL 11.6-15.0 L 718-7) HCT (test code = 36.3 % 35.7-45.2 4544-3) MCV (test code = 84.6 fL 80.6-95.5 787-2) MCH (test code = 26.8 pg 25.9-32.8 785-6) MCHC (test code = 31.7 g/dL 31.6-35.1 786-4) RDW-SD (test code = 53.1 fL 39.0-49.9 H 16456-9) RDW-CV (test code = 17.1 % 12.0-15.5 H 788-0) PLT (test code = See_Comment [Automated 777-3) message] The sy stem which generated this result transmitted reference range : 166 - 358 10*3/ ?L. The reference r angel was not used to interpret this result as normal/abnormal . MPV (test code = 10.0 fL 9.5-12.9 13085-7) NRBC/100 WBC (test See_Comment [Automat ed code = 1157437207) message] The system which generated this result transmitted reference range : 0.0 - 10.0 /100 WBCs. The refer ence range was not u sed to interpret th is result as normal/abnormal . NRBC x10^3 (test code See_Comment [Auto mated = 9159234368) message] The s ystem which generated this result transmitted reference range : 10*3/?L. The reference range was not used to interpret this result as normal/abnormal . GRAN MAT (NEUT) % 73.6 % (test code = 770-8) IMM GRAN % (test code 0.50 % = 2011295918) LYMPH % (test code = 16.5 % 736-9) MONO % (test code = 4.8 % 5905-5) EOS % (test code = 4.3 % 713-8) BASO % (test code = 0.3 % 706-2) GRAN MAT x10^3(ANC) 5.69 10*3/uL 1.88-7.09 (test code = 3970108870) IMM GRAN x10^3 (test 0.04 10*3/uL 0.00-0.06 code = 8320718263) LYMPH x10^3 (test code 1.27 10*3/uL 1.32-3.29 L = 731-0) MONO x10^3 (test code 0.37 10*3/uL 0.33-0.92 = 742-7) EOS x10^3 (test code = 0.33 10*3/uL 0.03-0.39 711-2) BASO x10^3 (test code 0.01-0.07 = 704-7) Lab Interpretation Abnormal (test code = 58678-4) [facility]"
[2022-04-14] MEDS ORDERED: IPRATROPIUM BROM 0.5MG/2.5ML ONE (19:31)
[2022-04-14] MEDS ORDERED: METHYLPREDNISOLONE 125 MG INJ ONE (19:31)
[2022-04-14] MEDS ORDERED: ALBUTEROL 2.5 MG/3 ML NEB SOL ONE (19:31)
[2022-04-14 20:07] LABS: Absolute Lymphocytes (CBC) 1.2 K/uL (0.7-4.9); Hematocrit 33.3 % (36.0-45.0); Lymphocytes % 21.4 % (15.3-44.8); MPV 7.8 fL (7.6-11.3); Protime INR 1.14; RBC Red Blood Cell Count 3.97 M/uL (3.86-4.86)
--- NOTE | 2022-04-14 20:15 | RAD REPORT ---
EXAM DESCRIPTION: RAD - Chest Single View - 04/14/2022 7:58 pm CLINICAL HISTORY: SOB Chest pain. COMPARISON: Chest Single View dated 09/10/2019; Chest Single View dated 07/21/2018; Chest Pa And Lat (2 Views) dated 03/30/2018; Chest Single View dated 03/01/2018 FINDINGS: Portable technique limits examination quality. Moderate bilateral pulmonary opacities are noted, superimposed on chronic fibrotic changes. The heart is mildly enlarged in size. No displaced fractures. IMPRESSION: Probable bilateral pneumonia/infection is present, greater on the right. This is superim posed on chronic changes.
[2022-04-14 20:19] LABS: Albumin 2.7 g/dL (3.4-5.0); Bilirubin Direct 0.3 mg/dL (0-0.2); Magnesium 2.2 mg/dL (1.6-2.4); Potassium 3.6 mmol/L (3.5-5.1); Protein, Total 8.7 g/dL (6.4-8.2); Troponin High Sensitivity 38.7 pg/mL (<58.9)
[2022-04-14 20:33] LABS: Urine Blood Trace-intact (Negative); Urine Glucose Negative (Negative); Urine Protein 1+ (Negative)
[2022-04-14 20:34] LABS: SARS-COV-2 RT PCR POSITIVE (NEGATIVE)
[2022-04-14 21:06] LABS: Urine Bacteria None Seen /HPF (<20); Urine Mucus 1+ /HPF (None Seen)
--- NOTE | 2022-04-14 22:37 | EDPHYS ---
Physician Documentation [facility] Name: Gaye Castro Age: 61 yrs Sex: Female : 1960 Arrival Date: 04/14/2022 Time: 18:48 Bed 18 Private MD: ED Physician Mariano Berg HPI: 04/14 19:20 This 61 yrs old Female presents to ER via EMS with complaints of Shortness Of Breath. cp 19:20 The patient has shortness of breath at rest. cp 19:20 Onset: The symptoms/episode began/occurred gradually, and became worse today. cp 19:20 Duration: The symptoms are continuous, and are steadily getting worse. Associated signs cp and symptoms: Pertinent positives: non-productive cough, Pertinent negatives: diaphoresis, fever, hemoptysis. Severity of symptoms: in the emergency department the symptoms are unchanged despite home interventions. Historical: - Allergies: 18:52 Ibuprofen; triggers GI bleeding; ld1 - Home Meds: 18:52 albuterol sulfate 2.5 mg/0.5 mL Inhl nebu 0.5 mL 4 times per day [Active]; alprazolam ld1 0.25 mg Oral tab 1 tab once a day [Active]; carvedilol 3.125 mg Oral tab 1 tab 2 times per day [Active]; spironolactone 25 mg Oral tab 1 tab 2 times per day [Active]; pantoprazole 40 mg Oral TbEC 1 tab once daily [Active]; citalopram 40 mg tab 1 tab once daily [Active]; - PMHx: 18:52 Anxiety; Hypertension; hypoxia; CHF; Pneumonia; COPD; Depression; lymphedema; small ld1 heart and lungs; PULMONARY HYPERTENSION; Sleep Apnea; uses home o2; - Immunization history:: Adult Immunizations up to date, Client reports receiving the 2nd dose of the Covid vaccine. - Social history:: Smoking status: Patient denies any tobacco usage or history of. Patient/guardian denies using alcohol. ROS: 19:25 Constitutional: Negative for body aches, chills, fever, poor PO intake. cp 19:25 Eyes: Negative for injury, pain, redness, and discharge. cp 19:25 ENT: Negative for drainage from ear(s), ear pain, difficulty swallowing, difficulty handling secretions. 19:25 Cardiovascular: Negative for chest pain, palpitations. 19:25 Respiratory: Positive for cough, "sounds productive", shortness of breath, at rest. 19:25 Abdomen/GI: Negative for abdominal pain, nausea, vomiting, and diarrhea, constipation. 19:25 Neuro: Positive for weakness, Negative for altered mental status, dizziness, headache, syncope. 19:25 All other systems are negative. Exam: 19:30 Constitutional: The patient appears in no acute distress, alert, awake, cp non-diaphoretic, non-toxic, well developed, well nourished, able to speak in full sentences 19:30 Head/Face: Normocephalic, atraumatic. cp 19:30 Eyes: Periorbital structures: appear normal, Conjunctiva: normal, no exudate, no injection, Sclera: no appreciated abnormality, Lids and lashes: appear normal, bilaterally. 19:30 ENT: External ear(s): are unremarkable, Nose: is normal, Mouth: Lips: moist, Oral mucosa: pink and intact, moist, Posterior pharynx: Airway: no evidence of obstruction, patent. 19:30 Neck: ROM/movement: is normal, is supple, without pain, no range of motions limitations, no meningismus. 19:30 Chest/axilla: Inspection: normal. 19:30 Cardiovascular: Rate: normal, Rhythm: regular, Edema: ankle edema, that is very mild, JVD: is not appreciated. 19:30 Respiratory: the patient does not display signs of respiratory distress, Respirations: labored breathing, that is mild, Breath sounds: bronchial sounds, that are mild, are heard diffusely, decreased breath sounds, that are moderate, throughout, stridor, is not appreciated. 19:30 Abdomen/GI: Inspection: abdomen appears normal, Palpation: abdomen is soft and non-tender, in all quadrants. 19:30 Back: pain, is absent, ROM is normal. 19:30 Neuro: Orientation: to person, place \\T\\ time. Mentation: is normal, Motor: moves all fours, general weakness w/o focal deficits, Sensation: no obvious gross deficits. 20:52 ECG was reviewed by the Attending Physician. cp Vital Signs: 18:49 BP 115 / 73; Pulse 83; Resp 26; Temp 98.1(O); Pulse Ox 87% on 4 lpm NC; Weight 98.88 ld1 kg; Height 5 ft. 6 in. (167.64 cm); Pain 0/10; 18:56 Pulse Ox 100% on 12% Non-rebreather mask; ld1 19:15 BP 114 / 69; Pulse 79; Resp 16 S; Pulse Ox 93% on 5 lpm NC; ha1 20:15 BP 128 / 89; Pulse 79; Resp 21 S; Pulse Ox 92% on 5 lpm NC; ha1 21:15 BP 132 / 67; Pulse 79; Resp 22 S; Pulse Ox 90% on 5 lpm NC; ha1 22:15 BP 132 / 65; Pulse 79; Resp 22 S; Pulse Ox 91% on 5 lpm NC; ha1 18:49 Body Mass Index 35.19 (98.88 kg, 167.64 cm) ld1 MDM: 18:52 Patient medically screened. cp 22:10 Data reviewed: vital signs, nurses notes, lab test result(s), EKG, radiologic studies, cp plain films. 04/14 19:15 Order name: Basic Metabolic Panel; Complete Time: 20:30 cp 04/14 20:30 Interpretation: Normal except: CO2 33; GLUC 139; CRE 0.52. cp 04/14 19:15 Order name: CBC with Diff; Complete Time: 20:30 cp 04/14 20:30 Interpretation: Normal except: HGB 10.7; HCT 33.3; RDW 16.3. cp 04/14 19:15 Order name: LFT's; Complete Time: 20:30 cp 04/14 20:31 Interpretation: Normal except: BILID 0.3; TP 8.7; ALB 2.7; GLOB 6.0; A/G 0.5. cp 04/14 19:15 Order name: Magnesium; Complete Time: 20:30 cp 04/14 19:15 Order name: NT PRO-BNP; Complete Time: 20:30 cp 04/14 20:31 Interpretation: Abnormal: NT PRO-BNP 2326. cp 04/14 19:15 Order name: PT-INR; Complete Time: 20:30 cp 04/14 19:15 Order name: Troponin HS; Complete Time: 20:30 cp 04/14 19:15 Order name: Lipase; Complete Time: 20:30 cp 04/14 19:15 Order name: Blood Culture Adult (2) cp 04/14 19:15 Order name: Procalcitonin; Complete Time: 22:05 cp 04/14 19:15 Order name: Lactate w/ 2H reflex if indic.; Complete Time: 20:30 cp 04/14 19:15 Order name: Urine Microscopic Only; Complete Time: 22:05 cp 04/14 19:15 Order name: ABG cp 04/14 19:15 Order name: COVID-19/FLU A+B/RSV; Complete Time: 22:05 cp 04/14 19:15 Order name: XRAY Chest (1 view); Complete Time: 20:30 cp 04/14 20:33 Order name: Urine Dipstick-Ancillary; Complete Time: 20:33 EDMS 04/15 03:01 Order name: CBC with Automated Diff EDMS 04/15 03:26 Order name: Basic Metabolic Panel EDMS 04/15 03:26 Order name: Phosphorus EDMS 04/15 03:26 Order name: Lipid Profile EDMS 04/15 03:26 Order name: Magnesium EDMS 04/15 03:26 Order name: Thyroid Stimulating Hormone EDMS 04/15 03:58 Order name: Manual Differential EDMS 04/14 19:15 Order name: EKG; Complete Time: 19:16 cp 04/14 19:15 Order name: Cardiac monitoring; Complete Time: 19:25 cp 04/14 19:15 Order name: EKG - Nurse/Tech; Complete Time: 20:49 cp 04/14 19:15 Order name: IV Saline Lock; Complete Time: 19:24 cp 04/14 19:15 Order name: Labs collected and sent; Complete Time: 19:43 cp 04/14 19:15 Order name: O2 Per Protocol; Complete Time: 19:44 cp 04/14 19:15 Order name: O2 Sat Monitoring; Complete Time: 20:19 cp 04/14 19:15 Order name: Urine Dipstick-Ancillary (obtain specimen); Complete Time: 20:49 cp EC:52 Rate is 79 beats/min. Rhythm is regular. UT interval is normal. QRS interval is normal. cp QT interval is prolonged at 406 msec. T waves are Inverted in leads II, III, aVF, V2, V3, V4, V5, V6. Interpreted by me. Reviewed by me. Administered Medications: 19:30 Drug: Albuterol - atroVENT (ipratropium) (3:1) (2.5 mg - 0.5 mg) 3 ml Route: Nebulizer; ha1 20:00 Follow up: Response: No adverse reaction ha1 19:30 Drug: SOLU-Medrol (methylPrednisoLONE) 125 mg Route: IVP; Site: left antecubital; ha1 20:00 Follow up: Response: No adverse reaction ha1 22:50 Drug: Lovenox (enoxaparin) 1 mg/kg Route: Sub-Q; Site: abdomen; ha1 23:20 Follow up: Response: No adverse reaction ha1 22:58 Drug: Lasix (furosemide) 20 mg Route: IVP; Site: left antecubital; ha1 23:20 Follow up: Response: No adverse reaction ha1 23:13 Drug: Rocephin (cefTRIAXone) 1 grams Route: IV; Rate: calculated rate; Site: left ha1 antecubital; 04/15 00:14 Follow up: Response: No adverse reaction; IV Status: Completed infusion; IV Intake: [id number] 00:14 Drug: Zithromax (azithromycin) 500 mg Route: IVPB; Infused Over: 1 hrs; Site: left [facility] antecubital; Disposition Summary: 04/14/22 22:37 Hospitalization Ordered Hospitalization Status: Inpatient Admission cp Provider: Walter Moran cp Condition: Fair cp Problem: new cp Symptoms: have improved cp Bed/Room Type: Standard cp Location: Telemetry/MedSurg (Inpatient)(04/15/22 07:10) mw2 Room Assignment: [facility](04/15/22 07:10) [facility] Diagnosis - Pneumonia due to SARS-associated coronavirus cp - Unspecified combined systolic (congestive) and diastolic (congestive) heart failure cp Forms: - Medication Reconciliation Form cp - SBAR form cp Addendum: 04/18/2022 13:27 Co-signature as Attending Physician, Mariano Berg MD I agree with the assessment and c quinones plan of care. Signatures: Dispatcher [employer] Mariano Anderson MD MD cha Page, Corey, PA PA cp Garcia, Cindy, RN RN Shantelle Magallon mw2 Juanita Balderas RN RN 1 Nena Corona RN RN 1 Corrections: (The following items were deleted from the chart) 04/14 22:47 22:37 Telemetry/MedSurg (Inpatient) cp cg :47 22:37 cp cg 23:31 20:37 Chest For PE Angio+CT.DERREK.EMILY ordered. EDMS EDMS 04/15 07:04/14 22:47 BR ER HOLD cg mw2 04/15 22:47 ERHOLD- cg mw2
--- NOTE | 2022-04-14 22:37 | ER ---
Nurse's Notes [facility] Name: Gaye Castro Age: 61 yrs Sex: Female : 1960 Arrival Date: 04/14/2022 Time: 18:48 Bed 18 Private MD: Diagnosis: Pneumonia due to SARS-associated coronavirus;Unspecified combined systolic (congestive) and diastolic (congestive) heart failure Presentation: 04/14 18:49 Chief complaint: EMS states: toned out for SOB and weakness - occurred around ld1 [place]. Progressively became worse. SpO2 88% ON 4L NC at home. Duo neb given en route - came up to 94%. Pt reports being out of albuterol. Coronavirus screen: At this time, the client does not indicate any symptoms associated with coronavirus-19. Ebola Screen: No symptoms or risks identified at this time. Initial Sepsis Screen: Does the patient meet any 2 criteria? No. Patient's initial sepsis screen is negative. Does the patient have a suspected source of infection? No. Patient's initial sepsis screen is negative. Risk Assessment: Do you want to hurt yourself or someone else? Patient reports no desire to harm self or others. Onset of symptoms was April 14, 2022 at 18:52. 18:49 Method Of Arrival: [facility] ld1 18:49 Acuity: DEBBY 3 ld1 Triage Assessment: 18:52 General: Appears in no apparent distress. uncomfortable, Behavior is calm, cooperative, ld1 appropriate for age. Pain: Denies pain. EENT: No signs and/or symptoms were reported regarding the EENT system. Neuro: Level of Consciousness is awake, alert, obeys commands, Oriented to person, place, time, situation. Cardiovascular: Capillary refill < 3 seconds Patient's skin is warm and dry. Respiratory: Reports shortness of breath at rest on exertion cough that is non-productive, Airway is patent Respiratory effort is even, unlabored, Onset: The symptoms/episode began/occurred gradually, the patient has moderate shortness of breath. GI: Abdomen is round obese. : No signs and/or symptoms were reported regarding the genitourinary system. Derm: No signs and/or symptoms reported regarding the dermatologic system. Musculoskeletal: No signs and/or symptoms reported regarding the musculoskeletal system. Historical: - Allergies: 18:52 Ibuprofen; triggers GI bleeding; ld1 - Home Meds: 18:52 albuterol sulfate 2.5 mg/0.5 mL Inhl nebu 0.5 mL 4 times per day [Active]; alprazolam ld1 0.25 mg Oral tab 1 tab once a day [Active]; carvedilol 3.125 mg Oral tab 1 tab 2 times per day [Active]; spironolactone 25 mg Oral tab 1 tab 2 times per day [Active]; pantoprazole 40 mg Oral TbEC 1 tab once daily [Active]; citalopram 40 mg tab 1 tab once daily [Active]; - PMHx: 18:52 Anxiety; Hypertension; hypoxia; CHF; Pneumonia; COPD; Depression; lymphedema; small ld1 heart and lungs; PULMONARY HYPERTENSION; Sleep Apnea; uses home o2; - Immunization history:: Adult Immunizations up to date, Client reports receiving the 2nd dose of the Covid vaccine. - Social history:: Smoking status: Patient denies any tobacco usage or history of. Patient/guardian denies using alcohol. Screenin:56 [facility] ED Fall Risk Assessment (Adult) History of falling in the last 3 months, ld1 including since admission No falls in past 3 months (0 pts). Abuse screen: Denies threats or abuse. Denies injuries from another. Nutritional screening: No deficits noted. Tuberculosis screening: No symptoms or risk factors identified. Assessment: 18:56 Reassessment: See triage assessment. Neuro: Level of Consciousness is awake, alert, ld1 obeys commands, Oriented to person, place, time, situation. Cardiovascular: Capillary refill < 3 seconds Patient's skin is warm and dry. Rhythm is sinus rhythm. Respiratory: Airway is patent Respiratory effort is even, labored, Breath sounds with wheezes bilaterally. GI: Abdomen is round obese. : No signs and/or symptoms were reported regarding the genitourinary system. EENT: No signs and/or symptoms were reported regarding the EENT system. Derm: No signs and/or symptoms reported regarding the dermatologic system. Musculoskeletal: No signs and/or symptoms reported regarding the musculoskeletal system. 19:15 General: Appears uncomfortable, Behavior is cooperative, anxious. ha1 19:15 Pain: Denies pain. Neuro: Level of Consciousness is awake, alert, obeys commands, ha1 Oriented to person, place, time, situation. Cardiovascular: Capillary refill < 3 seconds Patient's skin is warm and dry. Respiratory: Airway is patent Respiratory effort is even, labored, Respiratory pattern is tachypnea. GI: Abdomen is non-distended, obese. : No signs and/or symptoms were reported regarding the genitourinary system. Urine is cloudy. EENT: No deficits noted. No signs and/or symptoms were reported regarding the EENT system. Derm: No signs and/or symptoms reported regarding the dermatologic system. Skin is dry. Musculoskeletal: Circulation, motion, and sensation intact. Reports weakness in right leg and left leg. 20:15 Reassessment: Patient and/or family updated on plan of care and expected duration. Pain ha1 level reassessed. 20:15 Respiratory: Respiratory effort is even, labored, Respiratory pattern is ha1 hyperventilation. 21:15 Reassessment: Patient and/or family updated on plan of care and expected duration. Pain ha1 level reassessed. pt. oxygen saturation low. pt. refused to use a Bi pad. care provider notified by respiratory therapist. 22:15 Reassessment: Patient and/or family updated on plan of care and expected duration. Pain ha1 level reassessed. 22:15 Reassessment: Patient denies pain at this time. Patient states symptoms have improved. ha1 Respiratory: Respiratory effort is even, unlabored, Respiratory pattern is tachypnea. Vital Signs: 18:49 BP 115 / 73; Pulse 83; Resp 26; Temp 98.1(O); Pulse Ox 87% on 4 lpm NC; Weight 98.88 ld1 kg; Height 5 ft. 6 in. (167.64 cm); Pain 0/10; 18:56 Pulse Ox 100% on 12% Non-rebreather mask; ld1 19:15 BP 114 / 69; Pulse 79; Resp 16 S; Pulse Ox 93% on 5 lpm NC; ha1 20:15 BP 128 / 89; Pulse 79; Resp 21 S; Pulse Ox 92% on 5 lpm NC; ha1 21:15 BP 132 / 67; Pulse 79; Resp 22 S; Pulse Ox 90% on 5 lpm NC; ha1 22:15 BP 132 / 65; Pulse 79; Resp 22 S; Pulse Ox 91% on 5 lpm NC; ha1 18:49 Body Mass Index 35.19 (98.88 kg, 167.64 cm) ld1 ED Course: 18:48 Patient arrived in ED. ld1 18:50 Mariano Kearney PA is PHCP. cp 18:50 Mariano Berg MD is Attending Physician. cp 18:52 Triage completed. ld1 18:52 Arm band placed on right wrist. ld1 18:56 Patient has correct armband on for positive identification. Placed in gown. Bed in low ld1 position. Call light in reach. Side rails up X2. pantograph watcher on. Pulse ox on. NIBP on. Door closed. Noise minimized. Warm blanket given. 18:56 No provider procedures requiring assistance completed. ld1 18:56 Maintain EMS IV. Dressing intact. Good blood return noted. Site clean \T\ dry. Gauge \T\ ld 1 site: 20G LAC. 19:10 Nena Corona RN is Primary Nurse. ha1 19:43 COVID-19/FLU A+B/RSV Sent. as7 19:43 Lactate w/ 2H reflex if indic. Sent. as7 19:43 Procalcitonin Sent. as7 19:43 Lipase Sent. as7 19:43 Basic Metabolic Panel Sent. as7 19:43 CBC with Diff Sent. as7 19:43 LFT's Sent. as7 19:43 Magnesium Sent. as7 19:43 NT PRO-BNP Sent. as7 19:43 PT-INR Sent. as7 19:43 Troponin HS Sent. as7 20:00 XRAY Chest (1 view) In Process Unspecified. EDMS 22:35 Walter Moran is Hospitalizing Provider. cp 22:57 Patient admitted, IV remains in place. ha1 04/15 02:51 Blood Culture Adult (2) Sent. ha1 Administered Medications: 04/14 19:30 Drug: Albuterol - atroVENT (ipratropium) (3:1) (2.5 mg - 0.5 mg) 3 ml Route: Nebulizer; ha1 20:00 Follow up: Response: No adverse reaction ha1 19:30 Drug: SOLU-Medrol (methylPrednisoLONE) 125 mg Route: IVP; Site: left antecubital; ha1 20:00 Follow up: Response: No adverse reaction ha1 22:50 Drug: Lovenox (enoxaparin) 1 mg/kg Route: Sub-Q; Site: abdomen; ha1 23:20 Follow up: Response: No adverse reaction ha1 22:58 Drug: Lasix (furosemide) 20 mg Route: IVP; Site: left antecubital; ha1 23:20 Follow up: Response: No adverse reaction ha1 23:13 Drug: Rocephin (cefTRIAXone) 1 grams Route: IV; Rate: calculated rate; Site: left ha1 antecubital; 04/15 00:14 Follow up: Response: No adverse reaction; IV Status: Completed infusion; IV Intake: [id number] 00:14 Drug: Zithromax (azithromycin) 500 mg Route: IVPB; Infused Over: 1 hrs; Site: left [facility] antecubital; Medication: 04/14 18:56 VIS not applicable for this client. ld1 Intake: 04/15 00:14 IV: 50ml; Total: 50ml. ha1 Outcome: 04/14 22:37 Decision to Hospitalize by Provider. cp 22:57 Condition: stable ha1 22:57 Admitted to ER Hold. Please see [facility] for further documentation. ha1 22:57 Discharge instructions given to patient, family, Instructed on the need for admit, Demonstrated understanding of instructions. 04/15 08:03 Patient left the ED. ap3 Signatures: Dispatcher [employer] EDMS Mariano Kearney PA PA cp Prokisch, Amanda, RN RN ap3 Juanita Balderas RN RN ld1 Nena Corona RN RN ha1 Margot Dia as7
--- NOTE | 2022-04-14 22:57 | P.HP ---
Certification for Inpatient Patient admitted to: Inpatient With expected LOS: >2 Midnights Patient will require the following post-hospital care: None Practitioner: I am a practitioner with admitting privileges, knowledge of patient current condition, hospital course, and medical plan of care. Services: Services provided to patient in accordance with Admission requirements found in Title 42 Section 412.3 of the Code of Federal Regulations Patient History Date of Service: 04/15/22 Primary Care Provider: Chuy Reason for admission: COVID PNA History of Present Illness: Patient is a 61-year-old female past medical history of hypertension, chronic diastolic CHF, COPD on 4L home O2, anemia, and morbid obesity who presents to [facility] emergency department with complaints of worsening shortness of breath. Patient states that she started feeling ill about 2 weeks ago and has slowly worsened. She has also been out of her albuterol. She was saturating 82% on 4L and found to be COVID positive. Her labs are significant for CO2 33, BNP 2300. chest x-ray showed "probable bilateral pneumonia/infection is present, greater on the right. This is superimposed on chronic changes." She refused chest CT as she states she cannot lie flat. Patient peristently moved nasal cannula into her mouth as she "cannot breathe through her nose." She also refused high flow and bipap. ABG showed acute on chronic hypoxia and hypercapnia. She was given therapeutic lovenox, breathing treatment, solumedrol, azithromycin, Rocephin, and lasix in the emergency department. She will be admitted for further management. Allergies No Known Drug Allergies Allergy (Verified 01/11/18 23:11) uncoded Home medications list reviewed: Yes Home Medications: Citalopram [Celexa*] 40 mg PO DAILY 09/16/15 Furosemide [Lasix] 80 mg PO BID 09/16/15 Fluticasone/Vilanterol [Breo Ellipta 200-25 Mcg INH] 1 puff IH DAILY 06/10/16 Pantoprazole [Protonix Tab*] 40 mg PO DAILY #30 tab 06/12/16 Spironolactone [Aldactone*] 25 mg PO BID #60 tab 09/30/17 carvediloL [Coreg*] 3.125 mg PO BID 6AM 6PM #60 tab 09/30/17 ALPRAZolam [Xanax*] 0.25 mg PO BID PRN 01/11/18 Albuterol Sulfate [Proair Hfa] 1 puff IH QID 01/11/18 Losartan Potassium [Cozaar*] 50 mg PO DAILY 01/11/18 Tramadol HCl [Ultram] 50 mg PO Q4H PRN 01/11/18 Umeclidinium [place] [Incruse Ellipta] 62.5 mcg IH DAILY #1 blst.w.dev 03/03/18 predniSONE [Deltasone*] 10 mg PO BID #20 tab 03/03/18 - Past Medical/Surgical History Diabetic: No -: HTN -: CHF, diastolic dysfunction -: COPD -: Lymphadema -: Obesity hypoventilation syndrome -: Anxiety -: GERD -: Morbid obesity -: Secondhand smoke exposure -: Depression Psychosocial/ Personal History: Patient lives with her boyfriend - Family History Mother -: Heart disease, Hypertension, Diabetes, Other (see notes) Notes: dementia Sister -: Hypertension - Social History Smoking Status: Never smoker (heavy secondhand smoke exposure) Alcohol use: Yes CD- Drugs: No Caffeine use: Yes Place of Residence: Home Review of Systems General: Weakness Respiratory: Shortness of Breath Physical Examination - Vital Signs Temperature: 98.1 F Blood Pressure: 132/67 Pulse: 79 Respirations: 22 Pulse Ox (%): 90 (5L NC) - Physical Exam General: Alert, In no apparent distress, Obese HEENT: Atraumatic, PERRLA, EOMI, Sclerae nonicteric Neck: Supple, 2+ carotid pulse no bruit Respiratory: Expiratory wheezes Cardiovascular: Regular rate/rhythm, Normal S1 S2 Gastrointestinal: Normal bowel sounds, No tenderness Musculoskeletal: No tenderness Integumentary: No rashes Neurological: Normal speech, Normal strength at 5/5 x4 extr, Normal affect - Studies Laboratory Data (last 24 hrs) 04/14/22 19:37: PT 12.5, INR 1.14 04/14/22 19:37: WBC 5.70, Hgb 10.7 L, Hct 33.3 L, Plt Count 383 04/14/22 19:37: Sodium 142, Potassium 3.6, BUN 11, Creatinine 0.52 L, Glucose 139 H, Magnesium 2.2, Total Bilirubin 1.0, AST 17, ALT 17, Alkaline Phosphatase 65, Lipase 72 L Assessment and Plan - Problems (Diagnosis) (1) Acute respiratory failure with hypoxia Current Visit: Yes Status: Acute (2) Pneumonia due to COVID-19 virus Current Visit: Yes Status: Acute (3) CHF (congestive heart failure) Current Visit: Yes Status: Chronic Qualifiers: Heart failure type: diastolic Heart failure chronicity: acute on chronic Qualified Code(s): I50.33 - Acute on chronic diastolic (congestive) heart failure (4) COPD (chronic obstructive pulmonary disease) Current Visit: Yes Status: Chronic Qualifiers: COPD type: unspecified COPD Qualified Code(s): J44.9 - Chronic obstructive pulmonary disease, unspecified (5) GERD (gastroesophageal reflux disease) Current Visit: Yes Status: Chronic Qualifiers: Esophagitis presence: without esophagitis Qualified Code(s): K21.9 - Gastro-esophageal reflux disease without esophagitis (6) HTN (hypertension) Current Visit: Yes Status: Chronic Qualifiers: Hypertension type: primary hypertension Qualified Code(s): I10 - Essential (primary) hypertension (7) Morbid obesity Current Visit: Yes Status: Chronic - Plan Patient is admitted for further management of bilateral pneumonia and acute respiratory failure secondary to COVID 19. Continue supportive measures with supplemental oxygen, breathing treatments, antitussives, decongestants. Titrate O2 and wean to baseline as tolerated. Currently on 5L NC. Solu-Medrol, incentive spirometry, vitamin C and zinc ordered daily. Patient does not meet sepsis criteria. Blood cultures obtained and she received antibiotics in ED. Chest xray showing bilateral pneumonia. Likely viral given COVID but cannot exclude as patient declined chest CT. Continue antibiotics. Will retry chest CT for the morning if patient can tolerate lying flat. Pulmonology consult. Isolation precautions in place. Monitor and replete electrolytes per protocol. Reconcile and continue home medications. Lovenox for VTE prophylaxis. Full code. Discharge Plan: Home Plan to discharge in: Greater than 2 days - Advance Directives Does patient have a Living Will: No Does patient have a Durable POA for Healthcare: Yes - Code Status/Comfort Care Code Status Assessed: Yes Code Status: Full Code Physician Review: Patient Assessed, Agree with Above Assessment and Plan Critical Care: No Time Spent Managing Pts Care (In Minutes): 50
[2022-04-14] MEDS ORDERED: FUROSEMIDE 20 MG/ 2ML VIAL ONE (22:58)
[2022-04-14] MEDS ORDERED: ENOXAPARIN 100 MG/ML SYR SQ ONE (22:59)
[2022-04-14] MEDS ORDERED: AZITHROMYCIN 500 MG INJ IVPB ONE (22:59)
[2022-04-14] MEDS ORDERED: CEFTRIAXONE 1000 MG/VIAL ONE (22:59)
[2022-04-14] MEDS ORDERED: NA CHLORIDE 0.9% 100 ML IV ONE (23:00)
[2022-04-15] MEDS ORDERED: NA CHLORIDE 0.9% 250 ML ONE (00:08)
[2022-04-15] MEDS ORDERED: IPRATROPIUM BROM 0.5MG/2.5ML NEB PRN (01:38)
[2022-04-15] MEDS: METHYLPREDNISOLONE 40 MG INJ IV SCH ×3 (01:38→17:00)
[2022-04-15] MEDS ORDERED: ACETAMINOPHEN 325 MG TABLET PO PRN (01:38)
[2022-04-15] MEDS ORDERED: ONDANSETRON 4 MG/2 ML VIAL IV PRN (01:38)
[2022-04-15] MEDS ORDERED: ALBUTEROL 2.5 MG/3 ML NEB SOL NEB PRN ×2 (01:38→15:00)
[2022-04-15] MEDS ORDERED: PSEUDOEPHEDRINE 30 MG TAB PO PRN (01:38)
[2022-04-15] MEDS ORDERED: METHYLPREDNISOLONE 40 MG INJ ONE (01:47)
[2022-04-15] MEDS ORDERED: BENZONATATE 100 MG CAP PO ONE (01:59)
[2022-04-15] MEDS ORDERED: MUCINEX DM 12HR.SR TAB PO PRN (01:59)
[2022-04-15] MEDS: BENZONATATE 100 MG CAP PO PRN ×2 (02:04→15:36)
[2022-04-15 02:53] VITALS: BMI 36.2
[2022-04-15 02:53] LABS: Absolute Lymphocytes (CBC) 0.4 K/uL (0.7-4.9); Hematocrit 32.1 % (36.0-45.0); Lymphocytes % 7.4 % (15.3-44.8); MCV 83.8 fL (80-100); MPV 7.6 fL (7.6-11.3); RBC Red Blood Cell Count 3.83 M/uL (3.86-4.86)
[2022-04-15 03:25] LABS: Magnesium 2.1 mg/dL (1.6-2.4); Phosphorus 3.7 mg/dL (2.5-4.9); Potassium 3.5 mmol/L (3.5-5.1); Thyroid Stimulating Hormone 0.287 uIU/mL (0.358-3.740)
[2022-04-15 03:57] LABS: Blood Morphology Comment NOT SEEN (NOT SEEN); Platelet Estimate ADEQ
[2022-04-15] MEDS ORDERED: PNEUMOCOCCAL VACCINE 0.5 ML IMVAC ONE (08:00)
[2022-04-15] MEDS ORDERED: INFLUENZA VACCINE (for 6+ mo) 0.5 ML DOSE IMVAC ONE (08:00)
[2022-04-15] MEDS: AZITHROMYCIN IV 500 MG in NA CHLORIDE 0.9% 250 ML IVPB SCH (08:34)
[2022-04-15] MEDS: ENOXAPARIN 40 MG/0.4 ML SQ SCH (08:34)
[2022-04-15] MEDS: CEFTRIAXONE 1,000 MG in NA CHLORIDE 0.9% 50 ML IVPB SCH (08:35)
[2022-04-15] MEDS: ASCORBIC ACID 500 MG TABLET PO SCH (08:35)
[2022-04-15] MEDS: ZINC SULFATE 220 MG CAP PO SCH (08:45)
[2022-04-15] MEDS ORDERED: POTASSIUM CL SA 10 MEQ TAB PO ONE (13:00)
--- NOTE | 2022-04-15 14:22 | EKG ---
Test Date: 2022-04-14 Test Time: 20:46:46 Family Helper: MEASUREMENT RESULTS: Intervals: Rate: 79 MD: 184 QRSD: 96 QT: 406 QTc: 465 [place]: P: 59 MD: 184 QRS: 98 T: -82 INTERPRETIVE STATEMENTS: Normal sinus rhythm Rightward axis T wave abnormality, consider inferior ischemia T wave abnormality, consider anterolateral ischemia Prolonged QT Abnormal ECG Compared to ECG 09/10/2019 14:32:56 Right-axis deviation now present Prolonged QT interval now present T-wave abnormality still present Possible ischemia still present Electronically Signed On 04-15-22 14:21:35 VISCOSITY WORKER by Barber Napier
--- NOTE | 2022-04-15 15:09 | P.PN ---
Subjective Date of Service: 04/15/22 Primary Care Provider: Chuy Chief Complaint: COVID PNA Patient reports some improvement in her shortness of breath. She is coughing intermittently. No recorded fever. She reports diarrhea and stool incontinence whenever she coughs. Physical Examination - Vital Signs Temperature: 97.3 F Blood Pressure: 118/71 Pulse: 84 Respirations: 16 Pulse Ox (%): 90 - Studies Laboratory Data (last 24 hrs) 04/14/22 19:37: PT 12.5, INR 1.14 04/14/22 19:37: WBC 5.70, Hgb 10.7 L, Hct 33.3 L, Plt Count 383 04/14/22 19:37: Sodium 142, Potassium 3.6, BUN 11, Creatinine 0.52 L, Glucose 139 H, Magnesium 2.2, Total Bilirubin 1.0, AST 17, ALT 17, Alkaline Phosphatase 65, Lipase 72 L Microbiology Data (last 24 hrs): 04/14/22 21:15 Blood - Blood Anaerobic Blood Culture - Final 04/14/22 21:23 Blood - Blood Anaerobic Blood Culture - Final Assessment And Plan - Current Problems (Diagnosis) (1) Acute respiratory failure with hypoxia Current Visit: Yes Status: Acute (2) Pneumonia due to COVID-19 virus Current Visit: Yes Status: Acute (3) HTN (hypertension) Current Visit: Yes Status: Chronic Qualifiers: Hypertension type: primary hypertension Qualified Code(s): I10 - Essential (primary) hypertension (4) Morbid obesity Current Visit: Yes Status: Chronic (5) COPD exacerbation Onset Date: 06/11/16 Current Visit: No Status: Acute (6) Lymphedema in adult patient Onset Date: 06/11/16 Current Visit: No Status: Chronic (7) Hypothyroidism Current Visit: Yes Status: Acute - Plan Physical Exam General: Alert, In no apparent distress, Obese Neck: Supple, 2+ carotid pulse no bruit Respiratory: Mild scattered wheezes, mild respiratory distress. Cardiovascular: Regular rate/rhythm, Normal S1 S2 Gastrointestinal: Normal bowel sounds, No tenderness Musculoskeletal: No tenderness Integumentary: No rashes Neurological: Normal speech, Normal strength at 5/5 x4 extr, Normal affect. Plan: Continue IV steroid. Bronchodilator. Antibiotics for possible secondary bacterial pneumonia. Multivitamins and zinc for COVID. Pulmonary consulted. Continue home dose bumetanide and potassium supplementation. Resume sildenafil which I suspect patient takes for pulmonary hypertension. Wean oxygen as tolerated. Resume home dose Synthroid. Pulmonary to follow for need for antivirals.
[2022-04-15] MEDS: ALPRAZOLAM 0.25 MG TABLET PO SCH (15:33)
[2022-04-15] MEDS: SILDENAFIL CITRATE 20 MG TABLET PO SCH ×2 (17:00→22:09)
[2022-04-15] MEDS: carvediloL 3.125 MG TAB PO SCH (17:00)
[2022-04-15] MEDS: SPIRONOLACTONE 25 MG TABLET PO SCH (20:23)
[2022-04-16] MEDS: METHYLPREDNISOLONE 40 MG INJ IV SCH ×3 (00:47→17:21)
[2022-04-16 05:07] LABS: Absolute Lymphocytes (CBC) 0.7 K/uL (0.7-4.9); Hematocrit 31.9 % (36.0-45.0); Lymphocytes % 12.5 % (15.3-44.8); MCV 82.8 fL (80-100); MPV 7.5 fL (7.6-11.3); RBC Red Blood Cell Count 3.85 M/uL (3.86-4.86)
[2022-04-16 05:17] LABS: Potassium 3.9 mmol/L (3.5-5.1)
[2022-04-16] MEDS: carvediloL 3.125 MG TAB PO SCH ×2 (06:11→17:21)
[2022-04-16] MEDS: LEVOTHYROXINE SOD 0.1 MG TAB PO SCH (06:11)
[2022-04-16] MEDS: CITALOPRAM 10 MG TABLET PO SCH (08:19)
[2022-04-16] MEDS: PANTOPRAZOLE 40MG TABLET PO SCH (08:19)
[2022-04-16] MEDS: ATORVASTATIN 10 MG TAB PO SCH (08:19)
[2022-04-16] MEDS: ASCORBIC ACID 500 MG TABLET PO SCH (08:19)
[2022-04-16] MEDS: ZINC SULFATE 220 MG CAP PO SCH (08:20)
[2022-04-16] MEDS: ALPRAZOLAM 0.25 MG TABLET PO SCH (08:20)
[2022-04-16] MEDS: SILDENAFIL CITRATE 20 MG TABLET PO SCH ×3 (08:20→20:49)
[2022-04-16] MEDS: SPIRONOLACTONE 25 MG TABLET PO SCH ×2 (08:20→20:49)
[2022-04-16] MEDS: HOME MED 1 EA UNK (Fluticasone/Vilanterol [Breo Ellipta 100-25 Mcg Inh] Blst.W.Dev) IH SCH (08:21)
[2022-04-16] MEDS: POTASSIUM CL SA 10 MEQ TAB PO SCH (08:22)
[2022-04-16] MEDS: ENOXAPARIN 40 MG/0.4 ML SQ SCH (08:23)
[2022-04-16] MEDS: CEFTRIAXONE 1,000 MG in NA CHLORIDE 0.9% 50 ML IVPB SCH (08:24)
[2022-04-16] MEDS: AZITHROMYCIN IV 500 MG in NA CHLORIDE 0.9% 250 ML IVPB SCH (08:39)
[2022-04-16] MEDS ORDERED: BUMETANIDE 1 MG TABLET PO SCH (09:00)
[2022-04-16] MEDS ORDERED: POTASSIUM CL SA 10 MEQ TAB PO ONE (09:00)
[2022-04-16] MEDS ORDERED: HOME MED 1 EA UNK (Levothyroxine Sodium [Levothyroxine] 100 MCG Capsule) PO SCH (09:00)
[2022-04-16] MEDS ORDERED: POTASSIUM CHLORIDE 20 MEQ PO SCH (09:00)
--- NOTE | 2022-04-16 12:04 | P.CNS ---
Date of Consult: 04/16/22 Primary Care Provider: Chuy Chief Complaint: COVID PNA History of Present Illness: Patient is 61 years of age with a history of hypertension chronic diastolic heart failure COPD GERD with worsening shortness of breath and cough has had recurrent hospital admission patient was taking albuterol and Breo at home able to speak in full sentences short of breath with coughing spell Tested positive for COVID Allergies No Known Drug Allergies Allergy (Verified 01/11/18 23:11) uncoded Home Medications: Citalopram [Celexa*] 40 mg PO DAILY 09/16/15 Spironolactone [Aldactone*] 25 mg PO BID #60 tab 09/30/17 carvediloL [Coreg*] 3.125 mg PO BID 6AM 6PM #60 tab 09/30/17 ALPRAZolam [Xanax*] 0.25 mg PO DAILY 01/11/18 Albuterol Sulfate [Proair Hfa] 1 puff IH Q4HR 01/11/18 Atorvastatin Calcium [Lipitor] 10 mg PO DAILY 04/15/22 Bumetanide [Bumex] 1 mg PO DAILY 04/15/22 Fluticasone/Vilanterol [Breo Ellipta 100-25 Mcg INH] 1 each IH DAILY 04/15/22 Levothyroxine Sodium [Levothyroxine] 100 mcg PO DAILY 04/15/22 Liraglutide [Victoza 2-Colt] 1.8 mg SQ DAILY 04/15/22 Pantoprazole [Protonix Tab] 40 mg PO DAILY 04/15/22 Potassium Chloride [Klor-Con M20] 20 meq PO DAILY 04/15/22 Sildenafil Citrate [Sildenafil] 20 mg PO TID 04/15/22 - Past Medical/Surgical History Diabetic: No -: HTN -: CHF, diastolic dysfunction -: COPD -: Lymphadema -: Obesity hypoventilation syndrome -: Anxiety -: GERD -: Morbid obesity -: Secondhand smoke exposure -: Depression Psychosocial/ Personal History: Patient lives with her boyfriend - Family History Mother Medical History: Heart disease, Hypertension, Diabetes, Other (see notes) Notes: dementia Sister Medical History: Hypertension - Social History Smoking Status: Never smoker Alcohol use: Yes CD- Drugs: No Caffeine use: Yes Place of Residence: Home Review of Systems 10-point ROS is otherwise unremarkable General: Weakness Respiratory: Cough, Shortness of Breath Physical Examination Temp Pulse Resp BP Pulse Ox 97.4 F 67 17 140/68 90 L 04/16/22 08:00 04/16/22 08:20 04/16/22 08:00 04/16/22 08:20 04/16/22 08:00 General: Alert, Oriented x3, Moderate distress Respiratory: Diminished, Expiratory wheezes Cardiovascular: No edema, Regular rate/rhythm, Normal S1 S2 - Problems (1) Pneumonia due to COVID-19 virus Current Visit: Yes Status: Acute Plan: Patient is 61 years of age recurrent hospital admission metabolic syndrome COPD. With worsening dyspnea cough she is tested positive for COVID possible COVID- pneumonia she is also hypoxic patient is on sildenafil I suspect she has und erlying pulmonary hypertension patient's white count is normal procalcitonin level is normal add IV Lasix the echocardiogram add Augmentin
[2022-04-16] MEDS: AMOX/K CLAV 875 MG TAB PO SCH ×2 (13:12→20:48)
[2022-04-16] MEDS: FUROSEMIDE 40 MG/4 ML VIAL IV SCH (13:13)
[2022-04-16] MEDS: BENZONATATE 100 MG CAP PO PRN (13:14)
--- NOTE | 2022-04-16 15:03 | P.PN ---
Subjective Date of Service: 04/16/22 Primary Care Provider: Chuy Chief Complaint: COVID PNA No major changes from yesterday. Patient still short of breath with speaking and coughing intermittently. Physical Examination - Vital Signs Temperature: 97.4 F Blood Pressure: 116/56 Pulse: 59 Respirations: 17 Pulse Ox (%): 90 - Studies Microbiology Data (last 24 hrs): 04/14/22 21:23 Blood - Blood Anaerobic Blood Culture - Final 04/14/22 21:15 Blood - Blood Anaerobic Blood Culture - Final Assessment And Plan - Current Problems (Diagnosis) (1) Acute respiratory failure with hypoxia Current Visit: Yes Status: Acute (2) Pneumonia due to COVID-19 virus Current Visit: Yes Status: Acute (3) HTN (hypertension) Current Visit: Yes Status: Chronic Qualifiers: Hypertension type: primary hypertension Qualified Code(s): I10 - Essential (primary) hypertension (4) Morbid obesity Current Visit: Yes Status: Chronic (5) COPD exacerbation Onset Date: 06/11/16 Current Visit: No Status: Acute (6) Lymphedema in adult patient Onset Date: 06/11/16 Current Visit: No Status: Chronic (7) Hypothyroidism Current Visit: Yes Status: Acute (8) Acute on chronic diastolic heart failure Current Visit: Yes Status: Acute - Plan Physical Exam General: Alert, In no apparent distress, Obese Neck: No elevated JVD. Respiratory: Mild scattered wheezes, mild respiratory distress. Cardiovascular: Regular rate/rhythm, Normal S1 S2 Gastrointestinal: Normal bowel sounds, No tenderness Musculoskeletal: No tenderness Integumentary: No rashes Neurological: No focal motor deficit. Plan: Continue IV steroid. Scheduled bronchodilator. Antibiotics-Augmentin for possible secondary bacterial pneumonia. Multivitamins and zinc for COVID. Pulmonary seen patient-she is started on Paxlovid. IV Lasix per pulmonary. Continue Aldactone. Continue sildenafil for pulmonary hypertension Wean oxygen as tolerated. Continue home dose Synthroid.
[2022-04-16] MEDS: NIRMATRELVIR/RITONAVIR TABLET PO SCH ×2 (15:20→21:56)
[2022-04-17] MEDS: METHYLPREDNISOLONE 40 MG INJ IV SCH ×3 (00:16→17:07)
[2022-04-17 04:32] LABS: Potassium 4.3 mmol/L (3.5-5.1)
[2022-04-17] MEDS: carvediloL 3.125 MG TAB PO SCH ×2 (05:20→17:07)
[2022-04-17] MEDS: LEVOTHYROXINE SOD 0.1 MG TAB PO SCH (05:21)
--- NOTE | 2022-04-17 06:56 | ECHO ---
HEIGHT: 5 ft 5 in WEIGHT: 218 lb 0 oz DATE OF STUDY: 04/16/[address]: Juve Bravo MD 2-DIMENSIONAL: YES M.MODE: YES DOPPLER: YES COLOR FLOW: YES TDS: YES PORTABLE: YES DEFINITY: BUBBLE STUDY: DIAGNOSIS: RESPIRATORY FAILURE CARDIAC HISTORY: CATHERIZATION: NO SURGERY: NO PROSTHETIC VALVE: NO PACEMAKER: NO MEASUREMENTS (cm) DIASTOLIC (NORMALS) SYSTOLIC (NORMALS) IVSd 1.2 (0.6-1.2) LA Diam 3.3 (1.9-4.0) LVEF 65% LVIDd 4.5 (3.5-5.7) LVIDs 2.9 (2.0-3.5) %FS 36% LVPWd 1.3 (0.6-1.2) Ao Diam 2.7 (2.0-3.7) 2 DIMENSIONAL ASSESSMENT: RIGHT ATRIUM: NORMAL LEFT ATRIUM: NORMAL RIGHT VENTRICLE: NORMAL LEFT VENTRICLE: NORMAL TRICUSPID VALVE: TRACE TRICUSPID REGURGITATION MITRAL VALVE: NORMAL PULMONIC VALVE: MILD PULMONIC INSUFFICIENCY AORTIC VALVE: NORMAL PERICARDIAL EFFUSION: NONE AORTIC ROOT: NORMAL LEFT VENTRICULAR WALL MOTION: UNABLE TO EVALUATE WELL DUE TO POOR WINDOWS BUT IT APPEARS NORMAL DOPPLER/COLOR FLOW: SEE BELOW COMMENTS: 1. NORMAL LEFT VENTRICULAR EJECTION FRACTION 55-60% 2. TRACE TRICUSPID REGURGITATION 3. MILD PULMONIC INSUFFICIENCY 4. MILD DIASTOLIC DSYFUNCTION TECHNOLOGIST: REECE LANE
[2022-04-17] MEDS: FUROSEMIDE 40 MG/4 ML VIAL IV SCH (08:11)
[2022-04-17] MEDS: SPIRONOLACTONE 25 MG TABLET PO SCH ×2 (08:12→20:05)
[2022-04-17] MEDS: SILDENAFIL CITRATE 20 MG TABLET PO SCH ×3 (08:12→20:05)
[2022-04-17] MEDS: POTASSIUM CL SA 10 MEQ TAB PO SCH (08:12)
[2022-04-17] MEDS: CITALOPRAM 10 MG TABLET PO SCH (08:12)
[2022-04-17] MEDS: ZINC SULFATE 220 MG CAP PO SCH (08:13)
[2022-04-17] MEDS: ATORVASTATIN 10 MG TAB PO SCH (08:13)
[2022-04-17] MEDS: ASCORBIC ACID 500 MG TABLET PO SCH (08:13)
[2022-04-17] MEDS: ENOXAPARIN 40 MG/0.4 ML SQ SCH (08:13)
[2022-04-17] MEDS: PANTOPRAZOLE 40MG TABLET PO SCH (08:13)
[2022-04-17] MEDS: AMOX/K CLAV 875 MG TAB PO SCH ×2 (08:13→20:06)
[2022-04-17] MEDS: NIRMATRELVIR/RITONAVIR TABLET PO SCH ×2 (08:14→20:06)
[2022-04-17] MEDS: HOME MED 1 EA UNK (Fluticasone/Vilanterol [Breo Ellipta 100-25 Mcg Inh] Blst.W.Dev) IH SCH (08:14)
[2022-04-17] MEDS: ALPRAZOLAM 0.25 MG TABLET PO SCH (08:18)
--- NOTE | 2022-04-17 18:01 | P.PN ---
Subjective Date of Service: 04/17/22 Primary Care Provider: Chuy Chief Complaint: COVID PNA Patient states she is feeling better. Currently on 4 L oxygen by nasal cannula. She is still short of breath with talking. Physical Examination - Vital Signs Temperature: 97.0 F Blood Pressure: 144/68 Pulse: 67 Respirations: 18 Pulse Ox (%): 91 Assessment And Plan - Current Problems (Diagnosis) (1) Acute respiratory failure with hypoxia Current Visit: Yes Status: Acute (2) Pneumonia due to COVID-19 virus Current Visit: Yes Status: Acute (3) HTN (hypertension) Current Visit: Yes Status: Chronic Qualifiers: Hypertension type: primary hypertension Qualified Code(s): I10 - Essential (primary) hypertension (4) Morbid obesity Current Visit: Yes Status: Chronic (5) COPD exacerbation Onset Date: 06/11/16 Current Visit: No Status: Acute (6) Lymphedema in adult patient Onset Date: 06/11/16 Current Visit: No Status: Chronic (7) Hypothyroidism Current Visit: Yes Status: Acute (8) Acute on chronic diastolic heart failure Current Visit: Yes Status: Acute - Plan Physical Exam General: Alert, In no apparent distress, Obese Neck: No elevated JVD. Respiratory: Mild scattered wheezes, mild respiratory distress. Cardiovascular: Regular rate/rhythm, Normal S1 S2 Gastrointestinal: Normal bowel sounds, No tenderness Musculoskeletal: No tenderness Integumentary: No rashes Neurological: No focal motor deficit. Plan: Continue IV steroid. Scheduled bronchodilator. Antibiotics-Augmentin for possible secondary bacterial pneumonia. Multivitamins and zinc for COVID. Pulmonary seen patient-she is started on Paxlovid. IV Lasix per pulmonary. Continue Aldactone. Continue sildenafil for pulmonary hypertension Wean oxygen as tolerated. Continue home dose Synthroid.
[2022-04-17] MEDS: BENZONATATE 100 MG CAP PO PRN (20:05)
[2022-04-18] MEDS: METHYLPREDNISOLONE 40 MG INJ IV SCH ×2 (01:05→09:03)
[2022-04-18 04:27] LABS: Absolute Lymphocytes (CBC) 0.5 K/uL (0.7-4.9); Hematocrit 34.2 % (36.0-45.0); Lymphocytes % 10.8 % (15.3-44.8); MPV 7.4 fL (7.6-11.3); RBC Red Blood Cell Count 4.12 M/uL (3.86-4.86)
[2022-04-18 04:39] LABS: Potassium 3.8 mmol/L (3.5-5.1)
[2022-04-18] MEDS: carvediloL 3.125 MG TAB PO SCH (05:15)
[2022-04-18] MEDS: LEVOTHYROXINE SOD 0.1 MG TAB PO SCH (05:15)
[2022-04-18] MEDS: CITALOPRAM 10 MG TABLET PO SCH (09:00)
[2022-04-18] MEDS: ALPRAZOLAM 0.25 MG TABLET PO SCH (09:00)
[2022-04-18] MEDS ORDERED: POTASSIUM 25 MEQ EFFERV TAB PO ONE (09:00)
[2022-04-18] MEDS: HOME MED 1 EA UNK (Fluticasone/Vilanterol [Breo Ellipta 100-25 Mcg Inh] Blst.W.Dev) IH SCH (09:00)
[2022-04-18] MEDS: SILDENAFIL CITRATE 20 MG TABLET PO SCH ×2 (09:01→13:11)
[2022-04-18] MEDS: POTASSIUM CL SA 10 MEQ TAB PO SCH (09:01)
[2022-04-18] MEDS: SPIRONOLACTONE 25 MG TABLET PO SCH (09:01)
[2022-04-18] MEDS: NIRMATRELVIR/RITONAVIR TABLET PO SCH (09:01)
[2022-04-18] MEDS: ZINC SULFATE 220 MG CAP PO SCH (09:02)
[2022-04-18] MEDS: PANTOPRAZOLE 40MG TABLET PO SCH (09:02)
[2022-04-18] MEDS: AMOX/K CLAV 875 MG TAB PO SCH (09:02)
[2022-04-18] MEDS: ATORVASTATIN 10 MG TAB PO SCH (09:02)
[2022-04-18] MEDS: ASCORBIC ACID 500 MG TABLET PO SCH (09:02)
[2022-04-18] MEDS: ENOXAPARIN 40 MG/0.4 ML SQ SCH (09:03)
[2022-04-18] MEDS: FUROSEMIDE 40 MG/4 ML VIAL IV SCH (09:04)
--- NOTE | 2022-04-18 11:03 | P.DS ---
Admission Date: 04/14/22 Discharge Date: 04/18/22 Primary Care Provider: Chuy Disposition: DC HOME/HOME HEALTH CARE Discharge Condition: FAIR Reason for Admission: COVID PNA - Problems (1) Acute respiratory failure with hypoxia Status: Acute (2) Pneumonia due to COVID-19 virus Status: Acute (3) HTN (hypertension) Status: Chronic Qualifiers: Hypertension type: primary hypertension Qualified Code(s): I10 - Essential (primary) hypertension (4) Morbid obesity Status: Chronic (5) COPD exacerbation Onset Date: 06/11/16 Status: Acute (6) Lymphedema in adult patient Onset Date: 06/11/16 Status: Chronic (7) Hypothyroidism Status: Acute (8) Acute on chronic diastolic heart failure Status: Acute Brief History of Present Illness: Patient is a 61-year-old female past medical history of hypertension, chronic diastolic CHF, COPD on 4L home O2, anemia, and morbid obesity who presents to the emergency department with complaints of worsening shortness of breath. Patient states that she started feeling ill about 2 weeks ago and got progressively worse. She had also been out of her albuterol. She was saturating 82% on 4L and found to be COVID positive. Her labs are significant for CO2 33, BNP 2300. chest x-ray showed "probable bilateral pneumonia/infection is present, greater on the right. This is superimposed on chronic changes." She refused chest CT as she states she cannot lie flat. Patient peristently moved nasal cannula into her mouth as she "cannot breathe through her nose." She also refused high flow and bipap. ABG showed acute on chronic hypoxia and hypercapnia. She was given therapeutic lovenox, breathing treatment, solumedrol, azithromycin, Rocephin, and lasix in the emergency department. She was admitted for further management. Hospital Course: Patient admitted to the medical floor and treated with IV steroid scheduled bronchodilators and Augmentin for possible secondary bacterial pneumonia. She was also treated with multivitamins and zinc for COVID infection. Patient seen in consultation by pulmonary who started patient on Paxlovid. She was also treated with IV Lasix. Her other medications including sildenafil for pulmonary hypertension were also continued during the hospital stay. Patient was initially requiring about 6 L of oxygen by nasal cannula. This was eventually weaned to 4 L which is her baseline of her respiratory condition improved with treatment. Patient has significantly improved, no more dyspneic at rest. She feels she has improved to baseline and requested for discharge home. She has been given refills for her nebulizers. Home health for long-term recommended on discharge. Vital Signs/Physical Exam: Temp Pulse Resp BP Pulse Ox 97.0 F 58 17 140/62 90 L 04/18/22 08:00 04/18/22 09:04 04/18/22 08:00 04/18/22 09:04 04/18/22 08:00 General: In no apparent distress, Oriented x3, Obese HEENT: Mucous membr. moist/pink Neck: JVD not distended Respiratory: Diminished, Other (No wheezes or rhonchi) Cardiovascular: Regular rate/rhythm, Normal S1 S2 Gastrointestinal: Soft and benign, Non-distended Musculoskeletal: No swelling Integumentary: No cyanosis Neurological: Normal strength at 5/5 x4 extr Laboratory Data at Discharge: WBC 4.40 K/uL (4.3-10.9) 04/18/22 03:54 Hgb 11.1 g/dL (12.0-15.0) L 04/18/22 03:54 Hct 34.2 % (36.0-45.0) L 04/18/22 03:54 Plt Count 396 K/uL (152-406) 04/18/22 03:54 PT 12.5 SECONDS (9.5-12.5) 04/14/22 19:37 INR 1.14 04/14/22 19:37 Sodium 138 mmol/L (136-145) 04/18/22 03:54 Potassium 3.8 mmol/L (3.5-5.1) 04/18/22 03:54 BUN 27 mg/dL (7-18) H 04/18/22 03:54 Creatinine 0.54 mg/dL (0.55-1.02) L 04/18/22 03:54 Glucose 229 mg/dL (74-106) H 04/18/22 03:54 Phosphorus 3.7 mg/dL (2.5-4.9) 04/15/22 02:05 Magnesium 2.1 mg/dL (1.6-2.4) 04/15/22 02:05 Total Bilirubin 1.0 mg/dL (0.2-1.0) 04/14/22 19:37 AST 17 U/L (15-37) 04/14/22 19:37 ALT 17 U/L (13-56) 04/14/22 19:37 Alkaline Phosphatase 65 U/L (45-117) 04/14/22 19:37 Triglycerides 52 mg/dL (<150) 04/15/22 02:05 Cholesterol 138 mg/dL (<200) 04/15/22 02:05 HDL Cholesterol 50 mg/dL (40-60) 04/15/22 02:05 Cholesterol/HDL Ratio 2.76 04/15/22 02:05 Lipase 72 U/L (73-393) L 04/14/22 19:37 Home Medications: Citalopram [Celexa*] 40 mg PO DAILY 09/16/15 Spironolactone [Aldactone*] 25 mg PO BID #60 tab 09/30/17 carvediloL [Coreg*] 3.125 mg PO BID 6AM 6PM #60 tab 09/30/17 ALPRAZolam [Xanax*] 0.25 mg PO DAILY 01/11/18 Albuterol Sulfate [Proair Hfa] 1 puff IH Q4HR 01/11/18 Atorvastatin Calcium [Lipitor*] 10 mg PO DAILY 04/15/22 Bumetanide [Bumex*] 1 mg PO DAILY 04/15/22 Fluticasone/Vilanterol [Breo Ellipta 100-25 Mcg INH] 1 each IH DAILY 04/15/22 Levothyroxine Sodium [Levothyroxine] 100 mcg PO DAILY 04/15/22 Liraglutide [Victoza 2-Colt] 1.8 mg SQ DAILY 04/15/22 Pantoprazole [Protonix Tab*] 40 mg PO DAILY 04/15/22 Potassium Chloride [Klor-Con M20] 20 meq PO DAILY 04/15/22 Sildenafil Citrate 20 mg PO TID 04/15/22 Albuterol Neb [Proventil 0.083% Neb Soln] 2.5 mg NEB [id number] PRN #120 amp 04/18/22 Amox/Clavulanate [Augmentin 875-125 Tab*] 875 mg PO BID #14 tab 04/18/22 Ascorbic Acid [Vitamin C*] 500 mg PO BID #60 tab 04/18/22 Benzonatate [Tessalon Perle*] 100 mg PO TID PRN #30 cap 04/18/22 Ipratropium Neb [Atrovent*] 0.5 mg NEB [id number] PRN #120 amp 04/18/22 Zinc Sulfate [Zinc Sulfate*] 220 mg PO DAILY #30 cap 04/18/22 predniSONE [Deltasone*] 10 mg PO DAILY #50 tab 04/18/22 New Medications: Ipratropium Neb [Atrovent*] 0.5 mg NEB [id number] PRN #120 amp PRN Reason: Shortness Of Breath Albuterol Neb [Proventil 0.083% Neb Soln] 2.5 mg NEB [id number] PRN #120 amp PRN Reason: Shortness Of Breath Amox/Clavulanate [Augmentin 875-125 Tab*] 875 mg PO BID #14 tab predniSONE [Deltasone*] 10 mg PO DAILY #50 tab Benzonatate [Tessalon [place]*] 100 mg PO TID PRN #30 cap PRN Reason: Cough Ascorbic Acid [Vitamin C*] 500 mg PO BID #60 tab Zinc Sulfate [Zinc Sulfate*] 220 mg PO DAILY #30 cap Diet: AHA Activity: Fall precautions Followup: Juve Bravo MD [ACTIVE - CAN ADMIT] - 1-2 Weeks (CALL TO SCHDULE AN APPOINTMENT) Perez Vera DO [Primary Care Provider] - 1-2 Weeks (call to schedule an appointment) Time spent managing pt's care (in minutes): 35
[2022-04-18 12:20] VITALS: O2SAT 90
[2022-04-18 12:31] VITALS: BP 140/60; TEMP 97.2
== END 2022-04-18 13:52 | disposition home health service (06) | DRG 177 ==
LOC: ER 18:47 → ERHOLD 22:44 → 4TH 04-15 07:53
PROVIDERS: ADMIT Internal Medicine; ATTEND Internal Medicine
DX: U07.1 COVID-19 (principal); I50.33 Acute on chronic diastolic (congestive) heart failure; J12.82 Pneumonia due to coronavirus disease 2019; J96.01 Acute respiratory failure with hypoxia; J15.9 Unspecified bacterial pneumonia; E66.2 Morbid (severe) obesity with alveolar hypoventilation; Z99.81 Dependence on supplemental oxygen; F41.8 Other specified anxiety disorders; J44.9 Chronic obstructive pulmonary disease, unspecified; I27.20 Pulmonary hypertension, unspecified; I11.0 Hypertensive heart disease with heart failure; I89.0 Lymphedema, not elsewhere classified; Z68.36 Body mass index [BMI] 36.0-36.9, adult; D64.9 Anemia, unspecified; K21.9 Gastro-esophageal reflux disease without esophagitis; Z77.22 Contact with and (suspected) exposure to environmental tobacco smoke (acute) (chronic)
CPT/HCPCS: 0241U; 36415; 71045; 80048; 80061; 80076; 81003; 81015; 83605; 83690; 83735; 83880; 84100; 84145; 84443; 84484; 85025; 85610; 87040; 93005; 93306; 94010; 94640; 94760; 96365; 96372; 96375; 97110; 97161; 99285; J0456; J1650; J1940; J2920; J2930; J7050; J7613; J7644

== ENCOUNTER 2023-01-26 15:30 | Inpatient (IN) | payer OTHER ==
--- OUTSIDE RECORDS SUMMARY | 2023-01-26 15:42 | XMS REPORT | Continuity of Care Document ---
:1960 Author Organization [facility] t Address [address] [place] [address] Care Team Providers Name Role Phone Perez Vera DO Guillermo Primary Care Physician [phone] Rosa Chen Attending Clinician Unavailable Perez Vera Attending Clinician Unavailable [id number] Attending Clinician Unavailable ADRIANA REYNOLDS Attending Clinician Unavailable KURTIS SANDERS Attending Clinician Unavailable Kurtis Bell S Attending Clinician Gio Thomas RN Attending Clinician Unavailable MONI RANDALL Attending Clinician Unavailable Enoc Ware MD Attending Clinician Moni Randall MD Attending Clinician ZACHARY NICOLAS Attending Clinician Unavailable Zachary Nicolas MD Attending Clinician Adriana Reynolds MD Attending Clinician Doctor Unassigned, [place] Attending Clinician Unavailable SERGEY VELAZQUEZ Attending Clinician Unavailable SOPHIE BASSETT Attending Clinician Unavailable MD MINDI BLANKENSHIP Attending Clinician Unavailable Ritika Zaldivar DO Attending Clinician Govind NEUMANN, Elvia Murray Attending Clinician Kishore Gaytan MD Attending Clinician Misael NEUMANN, [place] Attending Clinician ABIOLA PANTOJA Attending Clinician Unavailable Mansi Hurley RN Attending Clinician Unavailable Tamie Townsend Attending Clinician ZOFIA MCKINNEY Attending Clinician Unavailable [id number] Admitting Clinician Unavailable MONI RANDALL Admitting Clinician Unavailable Moni Randall MD Admitting Clinician ZACHARY NICOLAS Admitting Clinician Unavailable ABIOLA GONZALEZ Admitting Clinician Unavailable SOPHIE BASSETT Admitting Clinician Unavailable MD MINDI BLANKENSHIP Admitting Clinician Unavailable Govind NEUMANN, Elvia Murray Admitting Clinician ELVIA MCALLISTER Admitting Clinician Unavailable ZOFIA MCKINNEY Admitting Clinician Unavailable Payers Payer Name Policy Type Policy Number Effective Date Expiration Date Timothy HARRY [id number] [facility] [id number] 2018-08-31spring 00:00:00 HU[employer]NA MEDICARE 53 [id number] 2021-03-29 Common Sp veronica 00:00:00 - [facility] HUMANA GOLD PLS [id number] 2021-04-06 HMO 00:00:00 [place] [id number] 2019-04-06 Common Sp veronica ing Medicare 00:00:00 - [place] [id number] 2019-04-06 Common Sp veronica ing Medicare 00:00:00 - [place] [address] [id number] 2019-04-06 Common Sp veronica ing Medicare 00:00:00 - [place] [id number] [id number] 2019-04-06 Common Sp veronica ing Medicare 00:00:00 - [place] [id number] [id number] 2019-04-06 Common Sp veronica ing Medicare 00:00:00 - [facility] Cigna-HealthSpr C1 [id number] 2019-04-06 Common Sp veronica ing Medicare 00:00:00 - [facility] [employer]Health[employer] C1 [id number] 2019-04-06 Common Sp veronica ing Medicare 00:00:00 - [facility] [employer] C1 [id number] 2019-04-06 Common Sp veronica ing Medicare 00:00:00 - [facility] [employer] C1 [id number] 2019-04-06 Common Sp veronica ing Medicare 00:00:00 - [facility] [employer] C1 [id number] 2019-04-06 Common Sp veronica ing Medicare 00:00:00 - [facility] [employer] C1 [id number] 2019-04-06 Common Sp veronica ing Medicare 00:00:00 - [facility] [employer] C1 [id number] 2019-04-06 Common Sp veronica ing Medicare 00:00:00 - [facility] [employer] C1 [id number] 2019-04-06 Common Sp veronica ing Medicare 00:00:00 - [facility] [employer] C1 [id number] 2019-04-06 Common Sp veronica ing Medicare 00:00:00 - [facility] [employer] C1 [id number] 2019-04-06 Common Sp veronica ing Medicare 00:00:00 - [facility] [employer] C1 [id number] 2019-04-06 Common Sp veronica ing Medicare 00:00:00 - [facility] [employer] C1 [id number] 2019-04-06 Common Sp veronica ing Medicare 00:00:00 - [facility] [employer] C1 [id number] 2019-04-06 Common Sp veronica ing Medicare 00:00:00 - [facility] [employer] C1 [id number] 2019-04-06 Common Sp veronica ing Medicare 00:00:00 - [facility] [employer] C1 [id number] 2019-04-06 Common Sp veronica ing Medicare 00:00:00 - [facility] [id number] 2019-04-06 Common Sp veronica ing [facility] [id number] 2019-04-06 Common Sp veronica ing Medicare 00:00:00 - [facility] Problems Condition Condition Condition Status Onset Resolution [...] heart 3-16 ity of failure failure 00:00: [place] with with 00 Medical preserved preserved Bran ch ejection ejection fraction fraction Syncope Syncope Disease Active Univers and and 3-16 ity of collapse collapse 00:00: [place] 00 Medical Branch Morbid Morbid Disease Active Univers obesity obesity 3-16 ity of 00:00: [place] 00 Medical Branch History of History of Disease Active U nivers arterial arterial 3-16 ity of ischemic ischemic 00:00: [place] stroke stroke 00 Medical Branch Dizziness Dizziness Disease Active Met hodi 1-22 st 00:00: Hospita 00 l 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 0-09 st mellitus mellitus 00:00: Hospit a with with 00 l hyperglyce hyperglyce gabriel, gabriel, without without long-term long-term current current use of use of insulin insulin Morbid Morbid Disease Active 2020-04 Methodi obesity obesity 0-09 st 00:00: Hospita 00 l Thyroid Thyroid Disease Active 2020-04 Methodi nodule nodule 0-09 st incidental incidental 00:00: Ho spita ly noted ly noted 00 l on imaging on imaging study study CHF CHF Disease Active 2020-04 Methodi (congestiv (congestiv 0-09 st e heart e heart 00:00: Hospita failure), failure), 00 l NYHA class NYHA class III, III, acute, acute, diastolic diastolic Hypoxia Hypoxia Disease Active 2020-04 Methodi 0-08 st 00:00: Hospita 00 l 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 Uni vers acute acute 0-01 ity of exacerb[place] exacerb[place] COPD COPD Disease Active Methodi exacerbati exacerbati 07-26 st on on 00:00: Hospita 00 l Essential Essential Disease Active Uni vers hypertensi hypertensi 9-11 it y of on on 00:00: [address] Morbid Morbid Disease Active Univers obesity obesity 9-10 ity of with body [place] index mass index 00 Me dical of 50 or of 50 or Branch higher higher Acute Acute Disease Active Univers respirator respirator 9- it [place] of y failure [place] failure [place] [facility] Respirator Respirator Disease Active U nivers y distress y distress 9-10 it y of 00:00: [address] CHF CHF Disease Active Methodi (congestiv (congestiv 09-22 st e heart e heart 00:00: Hospita failure) failure) 00 l Chronic Chronic Disease Active Methodi obstructiv obstructiv 09-22 st e e 00:00: Hospita pulmonary pulmonary 00 l disease disease with acute with acute exacerbati exacerbati on on Lymphedema Lymphedema Disease Active M ethodi 09-22 st 00:00: Hospita 00 l Essential Essential Disease Active Met hodi hypertensi hypertensi 09-22 st on on 00:00: Hospita 00 l Gastro-eso Gastro-eso Problem C ommon phageal phageal Spirit reflux reflux - CHI disease disease [facility] [id number] DNR (do Problem Commo n not Spirit resuscitat - CHI e) [facility] [id number] O2 Problem Commo n 07 dependent Spirit - CHI [facility] [id number] Current Problem Common moderate Spirit episode of - CHI major St depressive 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 [facility] [id number] Primary Problem Comm on osteoarthr Spirit itis of - CHI left knee [facility] [id number] Chronic Problem Commo n diastolic Spirit heart - CHI failure [facility] Abnormal Other Problem Common gait abnormalit Spirit ies of - [facility] gait and mobility [facility] Hypertensi Hypertensi Problem C ommon ve heart ve heart Spirit failure disease - CHI with heart failure [facility] Chronic Chronic Problem Common obstructiv obstructiv Sp veronica e e - CHI pulmonary pulmonary disease [facility] Shingles Shingles Problem Commo n Spirit - CHI [facility] Abnormal Abnormal Problem Commo n mammogram mammogram Spir it [facility] [id number] Generalize Problem Com mon d anxiety Spirit disorder - [facility] [id number] Acute pain Problem Com mon of right Spirit knee - [facility] Hyperglyce Type 2 Problem Commo n gabriel due to diabetes Spir it type 2 mellitus - [facility] diabetes with mellitus hyperglyce [facility] Mild major Major Problem Commo n depression depressive Sp veronica , single disorder, - CHI episode [facility] [id number] Constipati Problem Com mon on, Spirit [facility]ifie [facility] Ob[facility] Problem C ommon e sleep e sleep Spirit apnea apnea - CHI syndrome (adult) St (disorder) (pediatric [facility] ) [facility] Problem Commo n with home mcc, [facility] care active - CHI service care [facility] Transition Need for Problem Com mon from home Spirit self-care health - CHI to care 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 Acute on Acute on Problem Commo n chronic chronic Spirit diastolic diastolic - CH I heart congestive St failure [facility] [id number] Acute and Problem Comm on chronic Spirit respirator - CHI y failure [facility] Type 2 Type 2 Problem Common diabetes diabetes Spirit mellitus mellitus - CHI without without St complicati complicati Jennifer kes on on Medical Center Pulmonary Pulmonary Problem Com mon hypertensi hypertensi Sp veronica on on, - CHI unspecifie [facility] Back pain Back pain Problem Com mon Spirit - CHI [facility] Mixed Hyperlipid Problem Commo n hyperlipid emia, Spirit emia mixed - CHI [facility] Seasonal Allergic Problem Commo n allergic rhinitis, Spiri t rhinitis seasonal - CHI [facility] Mixed Depression Problem Commo n anxiety with Spirit and anxiety - CHI depressive [facility] Allergies, Adverse Reactions, Alerts Allergy Allergy Status [...] Univers N INGREDI 3-16 ity of 00:00: [place] 00 Medical Branch Hydrocod Propensi Active Patient Metho di one ty to 12-[address] adverse 00:00: blacking Hospita reaction 00 out after l s to taking. drug Ibuprofe Propensi Active Other (See Patient M ethodi n ty to Comments) 07-[address] adverse 00:00: history Hospita reaction 00 of l s to stomach drug ulcers. 0 Drug Active triggers GI Commo n allergy Bleeding Spirit - CHI [facility] acetamin acetamin Active dizziness Com mon ophen / ophen / Spirit hydrocod hydrocod - CHI one one [facility] Social History Social Habit Start Date Stop Date Quantity Comments Source Sexual orientation 2021-01-30 Heterosexual Meth odist 11:53:57 (finding) Hospital History SDOH Zoroastrianism Alcohol Std Drinks Hospit al History SDNJ Zoroastrianism Alcohol Binge Hospital Sex Assigned At Common Sp veronica - [facility] History of tobacco Passive smoker Un iversity of use [facility] Exposure to 2022-02-15 2022-02-25 Not sure University of SARS-CoV-2 (event) 00:00:00 16:51:00 [facility] Cigarettes smoked 2022-01-26 2022-01-26 Univers ity of current (pack per 00:00:00 00:00:00 [facility] ) - Reported Branch Cigarette 2022-01-26 2022-01-26 University of pack-years 00:00:00 00:00:00 [facility] History of Social 2021-05-02 2021-05-[address] function 00:00:00 00:00:00 Hospital Alcohol intake 2021-04-27 2021-04-27 Current non-drinker M ethodist 00:00:00 00:00:00 of alcohol Hospital (finding) History SDOH 2018-12-10 2018-12-10 1 Zoroastrianism Alcohol Frequency 00:00:00 00:00:00 Hospita l Tobacco use and 2018-07-26 2018-07-26 Smokeless tobacco Me thodist exposure 00:00:00 00:00:00 non-user Hospital Alcohol Comment 2016-12-14 2016-12-14 social drinker Unive rsity of 00:00:00 00:00:00 [facility] Smoking Status Start Date Stop Date Source Never Smoker [facility] - [facility] Ex-smoker 2022-01-26 00:00:00 2022-01-26 [facility] Medications Ordered Filled Start Stop Current Ordering Indication Dosage Frequency Signature Comments Components Source Medication Medication Date Date Medication? Clinician (SIG) Name Name Zackery Vizcarra 2021-04 No 1{table QD Atorvastat n Calcium n Calcium 1-25 t} in Calcium 10 MG 10 MG 00:00: 10 MG 00 Atorvastaenmanuel Magallontaenmanuel 2021-04 No 1{table QD Atorvastat n Calcium n Calcium 1-25 t} in Calcium 10 MG 10 MG 00:00: 10 MG 00 Atorvastati Atorvastati 2021-04 No 1{table QD Atorvastat n Calcium n Calcium 1-25 t} in Calcium 10 MG 10 MG 00:00: 10 MG 00 Atorvastati Atorvastati 2021-04 No 1{table QD Atorvastat n Calcium n Calcium 1-25 t} in Calcium 10 MG 10 MG 00:00: 10 MG 00 Atorvastati Atorvastati 2021-04 No 1{table QD Atorvastat n Calcium n Calcium 1-25 t} in Calcium 10 MG 10 MG 00:00: 10 MG 00 Atorvastati Atorvastati 2021-04 No 1{table QD Atorvastat n Calcium n Calcium 1-25 t} in Calcium 10 MG 10 MG 00:00: 10 MG 00 cephALEXin 2021-04- No 500mg 500 mg, Un bobby (KEFLEX) 04-28 Oral, ity of capsule 500 01:30: 00:37 ONCE, 1 [place] mg 00 :00 dose, On Medical Tue Branch 02/25/22 at 1930, RONI
Re ason for Anti-Infec tive: Documented Infection< br>Documen marialuisa Infection Site: Skin / Soft Tissue
Duration of Therapy: 10 days mupirocin 2 2021-04 Yes [id number] Apply to Univers % ointment 04-27 area(s) 3 ity of 00:00: (three) [place] 00 times Medical daily. Branch cephALEXin 2021-04- No [id number] 500mg Take 1 Univers (KEFLEX) 04-27 capsule by ity of 500 mg 00:00: 05:59 mouth in [place] capsule 00 :00 the Medical morning Branch and 1 capsule at noon and 1 capsule in the evening. Do all this for 10 days. fluticasone 2021-04 Yes 1{spray Use 1 Un bobby propionate 1-03 } [place] in ity o f 50 00:00: each [place] mcg/actuati 00 nostril in Id dical on nasal the Branch spray morning. fluticasone 2021-04 Yes 1{spray Use 1 Un bobby propionate 1-03 } [place] in ity o f 50 00:00: each [place] mcg/actuati 00 nostril in Me dical on nasal the Branch spray morning. fluticasone 2021-04 Yes 1{spray Use 1 Un bobby propionate 1-03 } [place] in ity o f 50 00:00: each [...] by ity of tablet 17:20: mouth as [place] [address] needed. Medical Branch atorvastati 2021-04 Yes 10mg Take 10 mg Univers n 10 mg 04-07 by mouth ity of tablet 17:20: daily. [place] [address] Medical Branch fluticasone 2021-04 Yes 1{puff} Inhale 1 Univers furoate-edward 04-07 Puff ity of anteroL 17:20: daily. [place] [facility] Branch 100-25 mcg/dose DsDv bumetanide 2021-04 Yes 1mg Take 1 mg Un bobby 1 mg tablet 02 by mouth ity of 17:20: daily. [place] [address] Medical Branch carvediloL 2021-04 Yes 3.125mg Take 3.125 Univers 3.125 mg 1-02 mg by ity of tablet 17:20: mouth 2 [place] [address] (two) Medical times Branch daily with meals. citalopram 2021-04 Yes 40mg Take 40 mg U nivers 40 mg -02 by mouth ity of tablet 17:20: daily. [place] [address] Medical Branch KCL 20 mEq 2021-04 Yes Take by Univ ers tablet 02 mouth ity of 17:20: daily. [place] [address] Medical Branch pantoprazol 2021-04 Yes 40mg Take 40 mg Univers e sodium 02 by mouth ity of (PANTOPRAZO 17:20: [facility]. [facility] sildenafil 2021-04 Yes 20mg Take 20 mg U nivers 20 mg 1-02 by mouth 3 ity of tablet 17:20: (three) [place] [address] times Medical daily. Branch spironolact 2021-04 Yes 25mg Take 25 mg Univers one 25 mg 1-02 by mouth 2 ity of tablet 17:20: (two) [place] [address] times Medical daily. Branch liraglutide 2021-04 Yes [...] mouth ity of tablet 17:20: in the [place] [address] morning. Medical Branch albuterol 2021-04 Yes 2.5mg Inhale 2.5 U nivers 2.5 mg /3 1-02 mg every 4 ity of mL (0.083 17:20: (four) [facility]) 51 hours as Medical nebulizer needed for Bran ch solution Wheezing or Shortness of Breath. ALPRAZolam 2021-04 Yes .25mg Take 0.25 U nivers 0.25 mg 1-02 mg by ity of tablet 17:20: mouth as [place] [address] needed. Medical Branch atorvastati 2021-04 Yes 10mg Take 10 mg Univers n 10 mg 1-02 by mouth ity of tablet 17:20: daily. [place] [address] Medical Branch fluticasone 2021-04 Yes 1{puff} Inhale 1 Univers furoate-edward 1-02 Puff ity of anteroL 17:20: daily. [place] [facility] Branch 100-25 mcg/dose DsDv bumetanide 2021-04 Yes 1mg Take 1 mg Un bobby 1 mg tablet 1-02 by mouth ity of 17:20: daily. [place] [address] Medical Branch carvediloL 2021-04 Yes 3.125mg Take 3.125 Univers 3.125 mg 1-02 mg by ity of tablet 17:20: mouth 2 [place] [address] (two) Medical times Branch daily with meals. citalopram 2021-04 Yes 40mg Take 40 mg U nivers 40 mg 1-02 by mouth ity of tablet 17:20: daily. [place] [address] Medical Branch KCL 20 mEq 2021-04 Yes Take by Univ ers tablet -02 mouth ity of 17:20: daily. [place] [address] Medical Branch pantoprazol 2021-04 Yes 40mg Take 40 mg Univers e sodium 02 by mouth ity of (PANTOPRAZO 17:20: [place]. [place] Medical Branch sildenafil 2021-04 Yes 20mg Take 20 mg U nivers 20 mg -02 by mouth 3 ity of tablet 17:20: (three) [place] [address] times Medical daily. Branch spironolact 2021-04 Yes 25mg Take 25 mg Univers one 25 mg 02 by mouth 2 ity of tablet 17:20: (two) [place] [address] times Medical daily. Branch liraglutide 2021-04 Yes [...] mouth ity of tablet 17:20: in the [place] [address] morning. Medical Branch albuterol 2021-04 Yes 2.5mg Inhale 2.5 U nivers 2.5 mg /3 1-02 mg every 4 ity of mL (0.083 17:20: (four) [facility]) 51 hours as Medical nebulizer needed for Bran ch solution Wheezing or Shortness of Breath. ALPRAZolam 2021-04 Yes .25mg Take 0.25 U nivers 0.25 mg 1-02 mg by ity of tablet 17:20: mouth as [place] [address] needed. Medical Branch atorvastati 2021-04 Yes 10mg Take 10 mg Univers n 10 mg 1-02 by mouth ity of tablet 17:20: daily. [place] [address] Medical Branch fluticasone 2021-04 Yes 1{puff} Inhale 1 Univers furoate-edward 1-02 Puff ity of anteroL 17:20: daily. [place] (BREO Medical ELLIPTA) Branch 100-25 mcg/dose DsDv bumetanide 2021-04 Yes 1mg Take 1 mg Un bobby 1 mg tablet 1-02 by mouth ity of 17:20: daily. [place] [address] Medical Branch carvediloL 2021-04 Yes 3.125mg Take 3.125 Univers 3.125 mg 1-02 mg by ity of tablet 17:20: mouth 2 [place] [address] (two) Medical times Branch daily with meals. citalopram 2021-04 Yes 40mg Take 40 mg U nivers 40 mg -02 by mouth ity of tablet 17:20: daily. [place] [address] Medical Branch KCL 20 mEq 2021-04 Yes Take by Univ ers tablet 04-07 mouth ity of 17:20: daily. [place] [address] Medical Branch pantoprazol 2021-04 Yes 40mg Take 40 mg Univers e sodium 02 by mouth ity of (PANTOPRAZO 17:20: [place]. [place] Medical Branch sildenafil 2021-04 Yes 20mg Take 20 mg U nivers 20 mg -02 by mouth 3 ity of tablet 17:20: (three) [place] [address] times Medical daily. Branch spironolact 2021-04 Yes 25mg Take 25 mg Univers one 25 mg 1-02 by mouth 2 ity of tablet 17:20: (two) [place] [address] times Medical daily. Branch liraglutide 2021-04 Yes [...] mouth ity of tablet 17:20: in the [place] 51 morning. Medical Branch fluticasone 2021-04- Inhale. Un bobby furoate 50 04-07 1102 ity of mcg/actuati 14:18: 00:00 [place] on DsDv 26 :00 Medical Branch bisacodyL 2021-04 Yes [id number] 10mg Insert 1 Univers 10 mg 1-02 Suppositor ity of suppository 00:00: y into [facility] s 00 rectum Medical every Branch morning. docusate 2021-04 Yes [id number] 100mg Take 1 Un bobby 100 mg 1-02 capsule by ity of capsule 00:00: mouth in [place] 00 the Medical morning Branch and 1 capsule in the evening. polyethylen 2021-04 Yes [id number] 17g Take 1 Univers e glycol 1-02 Packet by ity of 3350 17 00:00: mouth in [place] gram powder 00 the Medical morning Branch and 1 Packet in the evening. sennosides 2021-04 Yes [id number] 8.6mg Take 1 Univers 8.6 mg 1-02 tablet by ity of tablet 00:00: mouth in [place] [address] the Medical morning Branch and 1 tablet in the evening. bisacodyL 2021-04 Yes [id number] 10mg Insert 1 Univers 10 mg 1-02 Suppositor ity of suppository 00:00: y into [facility] 00 rectum Medical every Branch morning. docusate 2021-04 Yes [id number] 100mg Take 1 Un bobby 100 mg 1-02 capsule by ity of capsule 00:00: mouth in [place] 00 the Medical morning Branch and 1 capsule in the evening. polyethylen 2021-04 Yes [id number] 17g Take 1 Univers e glycol 1-02 Packet by ity of 3350 17 00:00: mouth in [place] gram powder 00 the Medical morning Branch and 1 Packet in the evening. sennosides 2021-04 Yes [id number] 8.6mg Take 1 Univers 8.6 mg 1-02 tablet by ity of tablet 00:00: mouth in [place] [address] the Medical morning Branch and 1 tablet in the evening. bisacodyL 2021-04 Yes [id number] 10mg Insert 1 Univers 10 mg 1-02 Suppositor ity of suppository 00:00: [place] rectum Medical every Branch morning. docusate 2021-04 Yes [id number] 100mg Take 1 Un bobby 100 mg 04-07 capsule by ity of capsule 00:00: mouth in [place] the morning Branch and 1 capsule in the evening. polyethylen 2021-04 Yes [id number] 17g Take 1 Univers e glycol 04-07 Packet by ity of 3350 17 00:00: mouth in [place] gram powder 00 the morning and 1 Packet in the evening. sennosides 2021-04 Yes [id number] 8.6mg Take 1 Univers 8.6 mg 04-07 tablet by ity of tablet 00:00: mouth in [place] the morning and 1 tablet in the evening. bumetanide 2021-04 Yes 1mg 1 mg, Univer s (BUMEX) 04-06 Oral, ity of tablet 1 mg 14:00: [place] First dose Medical on [facility] 02/04/22 at 0900, Until Discontinu ed, Routine [...] [place] mL 00 :00 dose, On [facility] 02/03/22 at 1700, Routine bisacodyL 2021-04 No 10mg 10 mg, Unive rs (DULCOLAX) 02-05 Rectal, ity o f suppository 14:00: 13:59 QAM, 2 [place] as 10 mg 00 :00 doses, Medical First dose Branch on [facility] 02/03/22 at 0900, Last dose on Thu02/04/22 at 0900, Routine bumetanide 2021-04 No 1mg 1 mg, Slow Univers (BUMEX) 02-03 IV Push, ity of injection 1 14:00: 16:58 DAILY, [place] mg 00 :47 First dose Medical (after Branch last modificati on) on [facility] 02/03/22 at 0900, Until Discontinu ed, Routine sennosides 2021-04 Yes 8.6mg 8.6 mg, Uni vers (SENOKOT) 0-31 Oral, BID, ity of tablet 8.6 07:30: First dose [place] mg 00 on [facility] 02/03/22 Branch at 0230, Until Discontinu ed, Routine polyethylen 2021-04- No 17g 17 g, Univ ers e glycol 0-31 10-31 Oral, ity of 3350 powder 07:30: 16:18 DAILY, [place] 17 g 00 :23 First dose Medical on [facility] 02/03/22 at 0230, Until Discontinu ed, Routine lactulose 2021-04 No 30mL 30 mL, Unive rs (CEPHULAC) 0-30 10-30 Oral, ity of solution 30 18:45: 19:25 [place] 00 :00 dose, On [facility] 02/02/22 at 1345, Routine docusate 2021-04 Yes 100mg 100 mg, Unive rs (COLACE) 0-29 Oral, BID, ity o f capsule 100 17:15: First dose [place] mg 00 on [facility] 02/01/22 Branch at 1215, Until Discontinu ed, Routine bumetanide 2021-04 No 1mg 1 mg, Slow Univers (BUMEX) 0-28 10-30 IV Push, ity of injection 1 01:00: 20:07 BID, First [place] mg 00 :05 dose Medical (after [place] last modificati on) on [facility] 01/30/22 at 2000, Until Discontinu ed, Routine fluticasone 2021-04 Yes 1{spray 1 [place], Univers propionate 0-25 } Nasal, ity of 50 14:00: DAILY, [place] mcg/actuati 00 First dose Me dical on nasal on [facility] spray 1 01/28/22 [place] at 0900, Until Discontinu ed, Routine bumetanide 2021-04 No 1mg 1 mg, Slow Univers (BUMEX) 0-24 10-27 IV Push, ity of injection 1 18:15: 17:56 Q24H, [place] mg 00 :30 First dose Medical on [facility] 01/27/22 at 1315, Until Discontinu ed, Routine Sliding 2021-04 Yes Subcutaneo Univ ers Scale 0-24 us, TID ity of Insulin - 17:00: MEALS+HS, [place] Lispro 00 First dose Medical (HumaLOG) + on [facility] 01/27/22 Testing at 1200, Until Discontinu [...] KIT) 21 Starting Medical injection 1 on [facility] mg 01/27/22 at 1126, Until Discontinu ed, RONI, Blood Glucose < or = 70 mg/dL and patient is unable to swallow or has mental changes. ALPRAZolam 2021-04 Yes .25mg 0.25 mg, Un bobby (XANAX) 0-24 Oral, ity of tablet 0.25 16:26: BIDPRN, [place] mg 02 Starting Medical on [facility] 01/27/22 at 1126, Until Discontinu ed, Routine, anxiety pantoprazol 2021-04 Yes 40mg 40 mg, Univ ers e 0-24 Oral, ity of (PROTONIX) 14:00: DAILY, [place] EC tablet 00 First dose Medi ernie 40 mg on [facility] 01/27/22 at 0900, Until Discontinu ed citalopram 2021-04 Yes 40mg 40 mg, Unive rs (CELEXA) 0-24 Oral, ity of tablet 40 14:00: DAILY, [place] mg 00 First dose Medical on [facility] 01/27/22 at 0900, Until Discontinu ed, Routine atorvastati 2021-04 Yes 10mg 10 mg, Univ ers n (LIPITOR) 0-24 Oral, ity of tablet 10 14:00: DAILY, [place] mg 00 First dose Medical on [facility] 01/27/22 at 0900, Until Discontinu ed, Routine aspirin 2021-04 Yes 81mg 81 mg, Univers chewable 0-24 Oral, ity of tablet 81 14:00: DAILY, [place] mg 00 First dose Medical on [facility] 01/27/22 at 0900, Until Discontinu ed, Routine enoxaparin 2021-04 Yes 40mg 40 mg, Unive rs (LOVENOX) 0-24 Subcutaneo ity of injection 14:00: [place], [place]ILY, [place] 40 mg 00 First dose Medical on [facility] 01/27/22 at 0900, Until Discontinu ed, Routine carvediloL 2021-04 Yes 3.125mg 3.125 mg, Univers (COREG) 0-24 Oral, BID ity of tablet 13:00: MEALS, [place] 3.125 mg 00 First dose Medic al on [facility] 01/27/22 at 0800, Until Discontinu ed, Routine ondansetron 2021-04 Yes 4mg 4 mg, Slow Univers (ZOFRAN 0-24 IV Push, ity of (PF)) 09:49: Q6HPRN, [place] injection 4 55 Starting Medi ernie mg on [facility] 01/27/22 at 0449, Until Discontinu ed, Routine, Nausea and Vomiting (N/V) acetaminoph 2021-04 Yes 650mg 650 mg, Un bobby en 0-24 Oral, ity of (TYLENOL) 05:49: Q6HPRN, [place] tablet 650 39 Starting Medic al mg on [facility] 01/27/22 at 0049, Until Discontinu ed, Routine, Pain (scale 1-3) ipratropium 2021-04 Yes 3mL 3 mL, Unive rs -albuteroL 0-24 Inhalation ity of (DUONEB) 01:00: , QID, [place] 0.5 mg-3 00 First dose Medic al mg(2.5 mg on [facility] base)/3 mL 01/26/22 nebulizer at 1999, solution 3 Until mL Discontinu ed, Routine sildenafil 2021-04 Yes 20mg 20 mg, Unive rs (REVATIO) 0-24 Oral, TID, ity of tablet 20 01:00: [place] dose [place] mg 00 on [facility] 01/26/22 Branch at 1999, Until Discontinu ed, Routine spironolact 2021-04 Yes 25mg 25 mg, Univ ers one 0-24 Oral, BID, ity of (ALDACTONE) 01:00: First dose [place] tablet 25 00 on [facility] mg 01/26/22 Branch at 1999, Until Discontinu ed, Routine fluticasone 2021-04 Yes 1{puff} 1 Puff, Univers propionate 0-24 Inhalation ity of (FLOVENT) 01:00: , Q12H, [place] 110 00 First dose Medical mcg/actuati on [facility] on inhaler 01/26/22 1 Puff at 1999, Until Discontinu ed
Is this order for a patient with suspected or confirmed COVID-19 infection? No
Does this order have Pulmonary/ Critical Care approval? Yes predniSONE 2021-04- No 40mg 40 mg, Univ ers (DELTASONE) 0-01-31 Oral, ity of tablet 40 00:15: 13:44 DAILY, 6 [place] mg 00 :00 doses, Medical First dose Branch on [place] 01/26/22 at 1915, Last dose on Thu01/31/22 at 0900, Routine acetaminoph 2021-04 No 1000mg 1,000 mg, Univers en 01-26 Oral, ity of (TYLENOL) 19:15: 19:02 ONCE, 1 [place] tablet 00 :00 dose, On Medical 1,000 mg [facility] 01/26/22 at 1415, RONI methylpredn 2021-04 No [...] 40 mg 00 :00 dose, On [facility] [place] [facility] 01/26/22 at 1230, RONI ipratropium 2021-04- No 3mL 3 mL, Univ ers -albuteroL 01-26 Inhalation it y of (DUONEB) 17:00: 18:22 , QID, [place] 0.5 mg-3 00 :49 First dose Medic al mg(2.5 mg on [facility] base)/3 mL 01/26/22 nebulizer at 1200, solution 3 Until mL Discontinu ed, RONI ondansetron 2021-04 No 4mg 4 mg, Slow Univers (ZOFRAN 01-26 IV Push, ity of (PF)) 15:15: 15:08 ONCE, 1 [place] injection 4 00 :00 dose, On Medi ernie mg [place] Branch 01/26/22 at 1015, RONI FENTanyl PF No 75ug 75 mcg, Un bobby (SUBLIMAZE 08-0502 Intramuscu it y of (PF)) 02:00: 01:12 lar, ONCE, [place] injection 00 :00 1 dose, On Medi ernie 75 mcg [place] 08/04/21 Branch at 2100, Routine acetaminoph Yes 4647 1{tbl} Take 1 Un bobby en-codeine 5-01 tablet by ity of (TYLENOL-CO 00:00: mouth [place] DEINE #3) 00 every 4 Medical 300-30 mg (four) Branch tablet hours as needed for Pain (scale 7-10). Indication s: acute pain methocarbam Yes [id number] 750mg Take 1.5 Univers oL 500 mg 5-01 tablets by ity of tablet 00:00: mouth [place] 00 every 6 Medical (six) Branch hours as needed for Pain (scale 7-10) (MUSCLE SPASM). acetaminoph 2021- No 4647 1{tbl} Take 1 U nivers en-codeine 08-04 tablet by ity of (TYLENOL-CO 00:00: 00:00 mouth [place] DEINE #3) 00 :00 every 4 Medical 300-30 mg (four) Branch tablet hours as needed for Pain (scale 7-10). Indication s: acute pain methocarbam 2021- No [id number] 750mg Take 1.5 Univers oL 500 mg 08-04 tablets by ity of tablet 00:00: 00:00 mouth [place] 00 :00 every 6 Medical (six) Branch hours as needed for Pain (scale 7-10) (MUSCLE SPASM). albuterol Yes 2.5mg Inhale 2.5 U nivers 2.5 mg /3 3-16 mg every 4 ity of mL (0.083 16:36: (four) [place] ) 27 hours as Medical nebulizer needed for Bran ch solution Wheezing or Shortness of Breath. ALPRAZolam Yes .25mg Take 0.25 U nivers 0.25 mg 3-16 mg by ity of tablet 16:36: mouth as [place] [address] needed. Medical Branch atorvastati Yes 10mg Take 10 mg Univers n 10 mg 3-16 by mouth ity of tablet 16:36: daily. [place] [address] Medical Branch fluticasone Yes 1{puff} Inhale 1 Univers furoate-edward 3-16 Puff ity of anteroL 16:36: daily. [place] ([place] [address] Medical ELLIPTA) Branch 100-25 mcg/dose DsDv bumetanide Yes 1mg Take 1 mg Un bobby 1 mg tablet 3-16 by mouth ity of 16:36: daily. [place] [address] Medical Branch carvediloL Yes 3.125mg Take 3.125 Univers 3.125 mg 3-16 mg by ity of tablet 16:36: mouth 2 [place] [address] (two) Medical times Branch daily with meals. citalopram Yes 40mg Take 40 mg U nivers 40 mg 3-16 by mouth ity of tablet 16:36: daily. [address] Branch fluticasone Yes Inhale. Uni vers furoate 50 3-16 ity of mcg/actuati 16:36: [place] on DsDv 27 Medical Branch KCL Yes [...] mouth 3 ity of tablet 16:36: (three) [place] 27 times Medical daily. Branch spironolact Yes 25mg Take 25 mg Univers one 25 mg 3-16 by mouth 2 ity of tablet 16:36: (two) [place] 27 times Medical daily. Branch liraglutide Yes .6mg inject 0.6 Univers (VICTOZA 3-16 mg under ity of 2-LYNDSEY) 0.6 16:36: the skin [place] mg/0.1 mL 27 daily. Medical (18 mg/3 Inject 1.8 Branc h mL) under the injection skin once daily albuterol Yes 2.5mg Inhale 2.5 U nivers 2.5 mg /3 3-16 mg every 4 ity of mL (0.083 16:36: (four) [facility]) 27 hours as Medical nebulizer needed for Bran ch solution Wheezing or Shortness of Breath. ALPRAZolam Yes .25mg Take 0.25 U nivers 0.25 mg 3-16 mg by ity of tablet 16:36: mouth as [place] [address] needed. Medical Branch atorvastati Yes 10mg Take 10 mg Univers n 10 mg 3-16 by mouth ity of tablet 16:36: daily. [place] [address] Medical Branch fluticasone Yes 1{puff} Inhale 1 Univers furoate-edward 3-16 Puff ity of anteroL 16:36: daily. [place] (BREO 27 Medical ELLIPTA) Branch 100-25 mcg/dose DsDv bumetanide Yes 1mg Take 1 mg Un bobby 1 mg tablet 3-16 by mouth ity of 16:36: daily. [place] [address] Medical Branch carvediloL Yes 3.125mg Take 3.125 Univers 3.125 mg 3-16 mg by ity of tablet 16:36: mouth 2 [place] [address] (two) Medical times Branch daily with meals. citalopram Yes 40mg Take 40 mg U nivers 40 mg 3-16 by mouth ity of tablet 16:36: daily. [address] fluticasone Yes Inhale. Uni vers furoate 50 3-16 ity of mcg/actuati 16:36: [place] on DsDv Medical Branch KCL Yes Take by Univers (KLOR-CON 3-16 mouth ity of M20) 20 mEq 16:36: [place]. [place] tablet Medical Branch pantoprazol Yes 40mg Take 40 mg Univers e sodium 3-16 by mouth ity of (PANTOPRAZO 16:36: daily. [place] LE [place]AL) [address] [place] [address] Branch sildenafil Yes 20mg Take 20 mg U nivers 20 mg 3-16 by mouth 3 ity of tablet 16:36: (three) [place] [address] times Medical daily. Branch spironolact Yes 25mg Take 25 mg Univers one 25 mg 3-16 by mouth 2 ity of tablet 16:36: (two) [place] [address] times Medical daily. Branch liraglutide Yes .6mg inject 0.6 Univers (VICTOZA 3-16 mg under ity of 2-LYNDSEY) 0.6 16:36: the skin [place] mg/0.1 mL 27 daily. Medical (18 mg/3 Inject 1.8 Branc h mL) under the injection skin once daily Bactrim DS Bactrim DS 2021- No 1{table BID Bactrim DS 800-160 MG 800-160 MG 3-07 03-12 t} 800-160 MG 00:00: 00:00 00 :00 ALPRAZolam ALPRAZolam No ALPRAZolam 0.25 MG 0.25 MG 2-17 0.25 MG 00:00: 00 atorvastati Yes 10mg QD Take 10 mg Methodi n (LIPITOR) 1-[address] 10 mg 17:14: daily. Hospita tablet 01 l atorvastati 2022-0 Yes 10mg QD Take 10 mg Methodi n (LIPITOR) -[address] 10 mg 17:14: daily. Hospita tablet 01 l ALPRAZolam 2021-0 Yes .25mg QD Take 0.25 M ethodi (XANAX) 1-[address] 0.25 MG 17:14: mouth Hospita tablet 05 nightly as l needed for anxiety (severe anxiety). pantoprazol 2021-0 Yes 40mg QD Take 40 mg Methodi e -[address] (PROTONIX) 17:14: daily. Hospi ta 40 MG EC 05 l tablet carvedilol 2021-0 Yes 3.125mg Q.5D Take 3.125 Methodi (COREG) 1-[address] 3.125 MG 17:14: mouth 2 Hospit a tablet 05 (two) l times a day with meals. spironolact 2021-0 Yes 25mg Q.5D Take 25 mg Methodi one -[address] (ALDACTONE) 17:14: (two) Hospi ta 25 MG 05 times a l tablet day. citalopram 0 Yes 40mg QD Take 40 mg M ethodi (CeleXA) 40 - by mouth st MG tablet 17:14: daily. Hospit a 05 l fluticasone 2021-0 Yes QD Inhale 1 Me [facility]odi furoate-edward 05-[address] anterol 17:14: s daily. Hospit a (BREO 05 l ELLIPTA) 100-25 mcg/dose blister with device powder for inhalation fluticasone 2021-0 Yes 2{spray 2 sprays Methodi propionate - } by Each st (FLONASE) 17:14: Nare route Ho spita 50 05 as needed l mcg/actuati for on nasal rhinitis. spray acetaminoph 2021-0 Yes 650mg Q8H Take 650 M ethodi en 1-[address] (ARTHRITIS 17:14: mouth Hospit a PAIN 05 every 8 l RELIEF, (eight) ACETAM,) hours as 650 MG 8 hr needed for tablet mild pain. sildenafil, 2021-0 Yes 20mg Q.[id number] Take 20 mg Methodi for - [id number] by mouth 3 [address] pulmonary 17:14: 3D (three) Hospi ta hypertersio 05 times a l n, day. (REVATIO) 20 mg tablet ALPRAZolam 2021-0 Yes .25mg QD Take 0.25 M ethodi (XANAX) 1-[address] 0.25 MG 17:14: mouth Hospita tablet 05 nightly as l needed for anxiety (severe anxiety). pantoprazol 2021-0 Yes 40mg QD Take 40 mg Methodi e -[address] (PROTONIX) 17:14: daily. Hospi ta 40 MG EC 05 l tablet carvedilol 2021-0 Yes 3.125mg Q.5D Take 3.125 Methodi (COREG) 1-[address] 3.125 MG 17:14: mouth 2 Hospit a tablet 05 (two) l times a day with meals. spironolact 2021-0 Yes 25mg Q.5D Take 25 mg Methodi one -[address] (ALDACTONE) 17:14: (two) Hospi ta 25 MG 05 times a l tablet day. citalopram 2021-0 Yes 40mg QD Take 40 mg M ethodi (CeleXA) 40 -[address] MG tablet 17:14: daily. Hospit a 05 l fluticasone 2021-0 Yes QD Inhale 1 Me thodi furoate-edward 05-[address] anterol 17:14: s daily. Hospit a (BREO 05 l ELLIPTA) 100-25 mcg/dose blister with device powder for inhalation fluticasone 2021-0 Yes 2{spray 2 sprays Methodi propionate 05-03 } by Each st (FLONASE) 17:14: Nare route Ho spita 50 05 as needed l mcg/actuati for on nasal rhinitis. spray acetaminoph 2021-0 Yes 650mg Q8H Take 650 M ethodi en 1-[address] (ARTHRITIS 17:14: mouth Hospit a PAIN 05 every 8 l RELIEF, (eight) ACETAM,) hours as 650 MG 8 hr needed for tablet mild pain. sildenafil, 2021-0 Yes 20mg Q.[id number] Take 20 mg Methodi for 1-28 [id number] [address] mouth [address] pulmonary 17:14: 3D (three) Hospi ta hypertersio 05 times a l n, day. (REVATIO) 20 mg tablet Azelastine Azelastine 2020-04 No 2{spray QD Azelastine HCl 0.15 % HCl 0.15 % 1-17 s_in_ea HCl 0.15 % 00:00: ch_nost 00 ril} Azelastine Azelastine 2020-04 No 2{spray QD Azelastine HCl 0.15 % HCl 0.15 % 1-17 s_in_ea HCl 0.15 % 00:00: ch_nost 00 ril} Azelastine Azelastine 2020-04 No 2{spray QD Azelastine HCl 0.15 % HCl 0.15 % 1-17 s_in_ea HCl 0.15 % 00:00: ch_nost 00 ril} Azelastine Azelastine 2020-04 No 2{spray QD Azelastine HCl 0.15 % HCl 0.15 % 1-17 s_in_ea HCl 0.15 % 00:00: ch_nost 00 ril} Azelastine Azelastine 2020- No 2{spray QD Azelastine HCl 0.15 % HCl 0.15 % 1-17 s_in_ea HCl 0.15 % 00:00: ch_nost 00 ril} Azelastine Azelastine 2020-04 No 2{spray QD Azelastine HCl 0.15 % HCl 0.15 % 1-17 s_in_ea HCl 0.15 % 00:00: ch_nost 00 ril} Azelastine Azelastine 2020- No 2{spray QD Azelastine HCl 0.15 % HCl 0.15 % 1-17 s_in_ea HCl 0.15 % 00:00: ch_nost 00 ril} Azelastine Azelastine 2020- No 2{spray QD Azelastine HCl 0.15 % HCl 0.15 % 1-17 s_in_ea HCl 0.15 % 00:00: ch_nost 00 ril} Azelastine Azelastine 2020- No 2{spray QD Azelastine HCl 0.15 % HCl 0.15 % 1-17 s_in_ea HCl 0.15 % 00:00: ch_nost 00 ril} Azelastine Azelastine 2020-04 No 2{spray QD Azelastine HCl 0.15 % HCl 0.15 % 1-17 s_in_ea HCl 0.15 % 00:00: ch_nost 00 ril} Azelastine Azelastine 2020-04 No 2{spray QD Azelastine HCl 0.15 % HCl 0.15 % 1-17 s_in_ea HCl 0.15 % 00:00: ch_nost 00 ril} liraglutide 2020-04 Yes 1.8mg QD Inject 0.3 Methodi (VICTOZA) 0-14 mL (1.[address] 0.6 mg/0.1 00:00: total) Hospi ta mL (18 mg/3 00 under the l mL) pen skin daily injector with breakfast. liraglutide 2020-04 Yes 1.8mg QD Inject 0.3 Methodi (VICTOZA) 0-14 mL (1.[address] 0.6 mg/0.1 00:00: total) Hospi ta mL (18 mg/3 00 under the l mL) pen skin daily injector with breakfast. Alprazolam Alprazolam Yes Perez 1 tablet Common Vera as needed Spirit for - [facility] anxiety [facility] Sildenafil Sildenafil Yes Perez 1 tablet Common Citrate Citrate Vera [facility] HydrOXYzine HydrOXYzine Yes Perez 1 capsule Common Pamoate Pamoate Vera as needed Spi rit [facility] Aspir-81 Aspir-81 Yes Perez 1 tablet C ommon Vera [facility] Durezol Durezol Yes Perez 1 drop Commo n Vera into Spirit affected - [facility] eye [facility] Ventolin Ventolin Yes Perez 2 puffs as Common HFA HFA Vera needed [facility] Carvedilol Carvedilol Yes Perez as C ommon Vera directed [facility] Carvedilol Carvedilol Yes Perez 1 tab Common Vera [facility] Tramadol Tramadol Yes Perez take 1 tab Common HCl HCl Vera [facility] Besivance Besivance Yes Perez 1 drop C ommon Vera into Spirit affected - [facility] eye [facility] Spiriva Spiriva Yes Perez 1 capsule Co mmon HandiHaler HandiHaler Vera Sp vernoica - [facility]I [facility] Citalopram Citalopram Yes Perez TAKE 1 Common Hydrobromid Hydrobromid Vera TABLET BY Spirit e e MOUTH ONCE - [facility] DAILY FOR [facility] 90 DAYS [facility] Acetaminoph Acetaminoph Yes Perez 1 tablet Common en en Vera as needed Spirit for mild - [facility] pain [facility] Pantoprazol Pantoprazol Yes Perez 1 tablet Common e Sodium e Sodium Vera [facility] Citalopram Citalopram Yes Perez 1 tablet Common Hydrobromid Hydrobromid Vera Spirit e e - [facility] Fluticasone Fluticasone Yes Perez 1 spray in Common Propionate Propionate Vera each Sp veronica nostril as - [facility] needed [facility] Lipitor Lipitor Yes Perez 1 tablet Com mon Vera [facility] Atropine Atropine Yes Perez 1 Commo n Sulfate Sulfate Vera applicatio Sp veronica n into the - [facility] lower [facility] eyelid of [facility] eye [place] Vitamin B12 Vitamin B12 Yes Perez 1 tablet Common Vera [facility] Incruse Incruse Yes Perez 1 puff Commo n Ellipta Ellipta Vera [facility] Metolazone Metolazone Yes Perez 1 tablet Common Vera [facility] Bumetanide Bumetanide Yes Perez TAKE 1 Common Vera TABLET BY Spirit MOUTH - [facility] TWICE [facility] DAILY FOR [facility] 30 DAYS [facility] Ilevro Ilevro Yes Perez 1 drop Common Vera into Spirit affected - [facility]I eye [facility] Albuterol Albuterol Yes Perez 3 ml as Common Sulfate Sulfate Vera needed [facility] Bumex Bumex Yes Perez take 1 tab Commo n Vera [facility] Jardiance Jardiance Yes Perez 1 tablet Common Vera [facility] Vitamin C Vitamin C Yes Perez 1 tablet Common Vera [facility] Spironolact Spironolact Yes Perez 1 tablet Common one one Vera with food [facility] Potassium Potassium Yes Perez 2 tablets Common Chloride Chloride Vera with food S pirit CHI [facility] Ventolin Ventolin No 2{puffs QID Ventolin HFA 108 (90 HFA 108 (90 _as_nee HFA 108 Base) Base) ded} (90 Base) MCG/ACT MCG/ACT MCG/ACT Atropine Atropine No QD Atropine Sulfate 1 % Sulfate 1 % Sulfate 1 % Aspir-81 81 Aspir-81 81 No 1{table QD Aspir-81 MG MG t} 81 MG Vitamin B12 Vitamin B12 No 1{table QD Vitamin 1000 MCG 1000 MCG t} B12 1000 MCG Vitamin C Vitamin C No 1{table QD Vitamin C 500 MG 500 MG t} 500 MG Victoza 18 Victoza 18 No Victoza 18 MG/3ML MG/3ML MG/3ML Victoza 18 Victoza 18 No QD Victoza 18 MG/3ML MG/3ML MG/3ML Breo Breo No 1{puff} QD Breo Ellipta Ellipta Ellipta 100-25 100-25 100-25 MCG/INH MCG/INH MCG/INH traMADol traMADol No traMADol HCl 50 MG HCl 50 MG HCl 50 MG Carvedilol Carvedilol No BID Carvedilol 3.125 MG 3.125 MG 3.125 MG Albuterol Albuterol No 3{ml_as TID Albuterol Sulfate Sulfate _needed Sulfate (2.5 (2.5 } (2.5 MG/3ML) MG/3ML) MG/3ML) 0.083% 0.083% 0.083% Citalopram Citalopram No Citalopram Hydrobromid Hydrobromid Hydrobromi e 40 MG e 40 MG de 40 MG Lipitor 10 Lipitor 10 No 1{table QD Lipitor 10 MG MG t} MG Bumex 1 MG Bumex 1 MG No 1{table BID Bumex 1 MG t} Budesonide Budesonide No Budesonide (Inhalation (Inhalation (Inhalatio ) ) n) ALPRAZolam ALPRAZolam No ALPRAZolam 0.25 MG 0.25 MG 0.25 MG Citalopram Citalopram No 1{table QD Citalopram Hydrobromid Hydrobromid t} Hydrobromi e 40 MG e 40 MG de 40 MG Pantoprazol Pantoprazol No 1{table QD Pantoprazo e Sodium 40 e Sodium 40 t} le Sodium MG MG 40 MG Sildenafil Sildenafil No Sildenafil Citrate 20 Citrate 20 Citrate 20 MG MG MG Acetaminoph Acetaminoph No QID Acetaminop en 500 MG en 500 MG hen 500 MG Ilevro 0.3 Ilevro 0.3 No 1{drop_ QD Ilevro 0.3 % % into_af % fected_ eye} Potassium Potassium No 2{table QD Potassium Chloride 20 Chloride 20 ts_with Chloride MEQ MEQ _food} 20 MEQ Besivance Besivance No 1{drop_ TID Besivance 0.6 % 0.6 % into_af 0.6 % fected_ eye} Fluticasone Fluticasone No QD Fluticason Propionate Propionate e 50 MCG/ACT 50 MCG/ACT Propionate 50 MCG/ACT metOLazone metOLazone No metOLazone 2.5 MG 2.5 MG 2.5 MG Spironolact Spironolact No Spironolac one 25 MG one 25 MG tone 25 MG Spiriva Spiriva No 1{capsu QD Spiriva HandiHaler HandiHaler le} HandiHaler 18 MCG 18 MCG 18 MCG Sildenafil Sildenafil No 1{table TID Sildenafil Citrate 20 Citrate 20 t} Citrate 20 MG MG MG Incruse Incruse No 1{puff} QD Incruse Ellipta Ellipta Ellipta 62.5 62.5 62.5 MCG/INH MCG/INH MCG/INH Pantoprazol Pantoprazol No Pantoprazo e Sodium 40 e Sodium 40 le Sodium MG MG 40 MG Carvedilol Carvedilol No Carvedilol 3.125 MG 3.125 MG 3.125 MG Durezol Durezol No 1{drop_ BID Durezol 0.05 % 0.05 % into_af 0.05 % fected_ eye} Bumetanide Bumetanide No Bumetanide 1 MG 1 MG 1 MG Ventolin Ventolin No 2{puffs QID Ventolin HFA 108 (90 HFA 108 (90 _as_nee HFA 108 Base) Base) ded} (90 Base) MCG/ACT MCG/ACT MCG/ACT Atropine Atropine No QD Atropine Sulfate 1 % Sulfate 1 % Sulfate 1 % Aspir-81 81 Aspir-81 81 No 1{table QD Aspir-81 MG MG t} 81 MG Vitamin B12 Vitamin B12 No 1{table QD Vitamin 1000 MCG 1000 MCG t} B12 1000 MCG Vitamin C Vitamin C No 1{table QD Vitamin C 500 MG 500 MG t} 500 MG Pantoprazol Pantoprazol No Pantoprazo e Sodium 40 e Sodium 40 le Sodium MG MG 40 MG Breo Breo No 1{puff} QD Breo Ellipta Ellipta Ellipta 100-25 100-25 100-25 MCG/INH MCG/INH MCG/INH traMADol traMADol No traMADol HCl 50 MG HCl 50 MG HCl 50 MG Carvedilol Carvedilol No BID Carvedilol 3.125 MG 3.125 MG 3.125 MG Albuterol Albuterol No 3{ml_as TID Albuterol Sulfate Sulfate _needed Sulfate (2.5 (2.5 } (2.5 MG/3ML) MG/3ML) MG/3ML) 0.083% 0.083% 0.083% Lipitor 10 Lipitor 10 No 1{table QD Lipitor 10 MG MG t} MG Bumex 1 MG Bumex 1 MG No 1{table BID Bumex 1 MG t} Citalopram Citalopram No Citalopram Hydrobromid Hydrobromid Hydrobromi e 40 MG e 40 MG de 40 MG Budesonide Budesonide No Budesonide (Inhalation (Inhalation (Inhalatio ) ) n) ALPRAZolam ALPRAZolam No ALPRAZolam 0.25 MG 0.25 MG 0.25 MG Citalopram Citalopram No 1{table QD Citalopram Hydrobromid Hydrobromid t} Hydrobromi e 40 MG e 40 MG de 40 MG Pantoprazol Pantoprazol No 1{table QD Pantoprazo e Sodium 40 e Sodium 40 t} le Sodium MG MG 40 MG Acetaminoph Acetaminoph No QID Acetaminop en 500 MG en 500 MG hen 500 MG Carvedilol Carvedilol No Carvedilol 3.125 MG 3.125 MG 3.125 MG Ilevro 0.3 Ilevro 0.3 No 1{drop_ QD Ilevro 0.3 % % into_af % fected_ eye} metOLazone metOLazone No metOLazone 2.5 MG 2.5 MG 2.5 MG Besivance Besivance No 1{drop_ TID Besivance 0.6 % 0.6 % into_af 0.6 % fected_ eye} Victoza 18 Victoza 18 No Victoza 18 MG/3ML MG/3ML MG/3ML Sildenafil Sildenafil No Sildenafil Citrate 20 Citrate 20 Citrate 20 MG MG MG Spironolact Spironolact No Spironolac one 25 MG one 25 MG tone 25 MG Spiriva Spiriva No 1{capsu QD Spiriva HandiHaler HandiHaler le} HandiHaler 18 MCG 18 MCG 18 MCG Sildenafil Sildenafil No 1{table TID Sildenafil Citrate 20 Citrate 20 t} Citrate 20 MG MG MG Incruse Incruse No 1{puff} QD Incruse Ellipta Ellipta Ellipta 62.5 62.5 62.5 MCG/INH MCG/INH MCG/INH Potassium Potassium No 2{table QD Potassium Chloride 20 Chloride 20 ts_with Chloride MEQ MEQ _food} 20 MEQ Fluticasone Fluticasone No QD Fluticason Propionate Propionate e 50 MCG/ACT 50 MCG/ACT Propionate 50 MCG/ACT Durezol Durezol No 1{drop_ BID Durezol 0.05 % 0.05 % into_af 0.05 % fected_ eye} Bumetanide Bumetanide No Bumetanide 1 MG 1 MG 1 MG Ventolin Ventolin No 2{puffs QID Ventolin HFA 108 (90 HFA 108 (90 _as_nee HFA 108 Base) Base) ded} (90 Base) MCG/ACT MCG/ACT MCG/ACT Atropine Atropine No QD Atropine Sulfate 1 % Sulfate 1 % Sulfate 1 % Aspir-81 81 Aspir-81 81 No 1{table QD Aspir-81 MG MG t} 81 MG Ventolin Ventolin No 2{puffs QID Ventolin HFA 108 (90 HFA 108 (90 _as_nee HFA 108 Base) Base) ded} (90 Base) MCG/ACT MCG/ACT MCG/ACT Potassium Potassium No 2{table QD Potassium Chloride 20 Chloride 20 ts_with Chloride MEQ MEQ _food} 20 MEQ Lipitor 10 Lipitor 10 No 1{table QD Lipitor 10 MG MG t} MG Carvedilol Carvedilol No BID Carvedilol 3.125 MG 3.125 MG 3.125 MG Pantoprazol Pantoprazol No 1{table QD Pantoprazo e Sodium 40 e Sodium 40 t} le Sodium MG MG 40 MG Sildenafil Sildenafil No 1{table TID Sildenafil Citrate 20 Citrate 20 t} Citrate 20 MG MG MG traMADol traMADol No traMADol HCl 50 MG HCl 50 MG HCl 50 MG Citalopram Citalopram No 1{table QD Citalopram Hydrobromid Hydrobromid t} Hydrobromi e 40 MG e 40 MG de 40 MG ALPRAZolam ALPRAZolam No ALPRAZolam 0.25 MG 0.25 MG 0.25 MG Breo Breo No 1{puff} QD Breo Ellipta Ellipta Ellipta 100-25 100-25 100-25 MCG/INH MCG/INH MCG/INH Bumex 1 MG Bumex 1 MG No 1{table BID Bumex 1 MG t} Victoza 18 Victoza 18 No QD Victoza 18 MG/3ML MG/3ML MG/3ML Bumex 1 MG Bumex 1 MG No 1{table BID Bumex 1 MG t} Citalopram Citalopram No 1{table QD Citalopram Hydrobromid Hydrobromid t} Hydrobromi e 40 MG e 40 MG de 40 MG Pantoprazol Pantoprazol No Pantoprazo e Sodium 40 e Sodium 40 le Sodium MG MG 40 MG Spironolact Spironolact No Spironolac one 25 MG one 25 MG tone 25 MG Fluticasone Fluticasone No QD Fluticason Propionate Propionate e 50 MCG/ACT 50 MCG/ACT Propionate 50 MCG/ACT Bumetanide Bumetanide No Bumetanide 1 MG 1 MG 1 MG Sildenafil Sildenafil No 1{table TID Sildenafil Citrate 20 Citrate 20 t} Citrate 20 MG MG MG Ventolin Ventolin No 2{puffs QID Ventolin HFA 108 (90 HFA 108 (90 _as_nee HFA 108 Base) Base) ded} (90 Base) MCG/ACT MCG/ACT MCG/ACT Vitamin B12 Vitamin B12 No 1{table QD Vitamin 1000 MCG 1000 MCG t} B12 1000 MCG Spiriva Spiriva No 1{capsu QD Spiriva HandiHaler HandiHaler le} HandiHaler 18 MCG 18 MCG 18 MCG Acetaminoph Acetaminoph No QID Acetaminop en 500 MG en 500 MG hen 500 MG Carvedilol Carvedilol No BID Carvedilol 3.125 MG 3.125 MG 3.125 MG Aspir-81 81 Aspir-81 81 No 1{table QD Aspir-81 MG MG t} 81 MG Citalopram Citalopram No Citalopram Hydrobromid Hydrobromid Hydrobromi e 40 MG e 40 MG de 40 MG traMADol traMADol No traMADol HCl 50 MG HCl 50 MG HCl 50 MG Breo Breo No 1{puff} QD Breo Ellipta Ellipta Ellipta 100-25 100-25 100-25 MCG/INH MCG/INH MCG/INH Vitamin C Vitamin C No 1{table QD Vitamin C 500 MG 500 MG t} 500 MG Victoza 18 Victoza 18 No Victoza 18 MG/3ML MG/3ML MG/3ML Atropine Atropine No QD Atropine Sulfate 1 % Sulfate 1 % Sulfate 1 % Budesonide Budesonide No Budesonide (Inhalation (Inhalation (Inhalatio ) ) n) Victoza 18 Victoza 18 No QD Victoza 18 MG/3ML MG/3ML MG/3ML Albuterol Albuterol No 3{ml_as TID Albuterol Sulfate Sulfate _needed Sulfate (2.5 (2.5 } (2.5 MG/3ML) MG/3ML) MG/3ML) 0.083% 0.083% 0.083% Potassium Potassium No 2{table QD Potassium Chloride 20 Chloride 20 ts_with Chloride MEQ MEQ _food} 20 MEQ Lipitor 10 Lipitor 10 No 1{table QD Lipitor 10 MG MG t} MG Aspir-81 81 Aspir-81 81 No 1{table QD Aspir-81 MG MG t} 81 MG Budesonide Budesonide No Budesonide (Inhalation (Inhalation (Inhalatio ) ) n) Breo Breo No 1{puff} QD Breo Ellipta Ellipta Ellipta 100-25 100-25 100-25 MCG/INH MCG/INH MCG/INH Carvedilol Carvedilol No BID Carvedilol 3.125 MG 3.125 MG 3.125 MG Bumetanide Bumetanide No Bumetanide 1 MG 1 MG 1 MG Vitamin C Vitamin C No 1{table QD Vitamin C 500 MG 500 MG t} 500 MG Fluticasone Fluticasone No QD Fluticason Propionate Propionate e 50 MCG/ACT 50 MCG/ACT Propionate 50 MCG/ACT Albuterol Albuterol No 3{ml_as TID Albuterol Sulfate Sulfate _needed Sulfate (2.5 (2.5 } (2.5 MG/3ML) MG/3ML) MG/3ML) 0.083% 0.083% 0.083% Spironolact Spironolact No Spironolac one 25 MG one 25 MG tone 25 MG traMADol traMADol No traMADol HCl 50 MG HCl 50 MG HCl 50 MG Pantoprazol Pantoprazol No 1{table QD Pantoprazo e Sodium 40 e Sodium 40 t} le Sodium MG MG 40 MG Pantoprazol Pantoprazol No Pantoprazo e Sodium 40 e Sodium 40 le Sodium MG MG 40 MG Citalopram Citalopram No 1{table QD Citalopram Hydrobromid Hydrobromid t} Hydrobromi e 40 MG e 40 MG de 40 MG Bumex 1 MG Bumex 1 MG No 1{table BID Bumex 1 MG t} Acetaminoph Acetaminoph No QID Acetaminop en 500 MG en 500 MG hen 500 MG Spiriva Spiriva No 1{capsu QD Spiriva HandiHaler HandiHaler le} HandiHaler 18 MCG 18 MCG 18 MCG Victoza 18 Victoza 18 No Victoza 18 MG/3ML MG/3ML MG/3ML Potassium Potassium No 2{table QD Potassium Chloride 20 Chloride 20 ts_with Chloride MEQ MEQ _food} 20 MEQ Victoza 18 Victoza 18 No QD Victoza 18 MG/3ML MG/3ML MG/3ML Atropine Atropine No QD Atropine Sulfate 1 % Sulfate 1 % Sulfate 1 % Sildenafil Sildenafil No 1{table TID Sildenafil Citrate 20 Citrate 20 t} Citrate 20 MG MG MG Lipitor 10 Lipitor 10 No 1{table QD Lipitor 10 MG MG t} MG ALPRAZolam ALPRAZolam No ALPRAZolam 0.25 MG 0.25 MG 0.25 MG Citalopram Citalopram No Citalopram Hydrobromid Hydrobromid Hydrobromi e 40 MG e 40 MG de 40 MG Vitamin B12 Vitamin B12 No 1{table QD Vitamin 1000 MCG 1000 MCG t} B12 1000 MCG Ventolin Ventolin No 2{puffs QID Ventolin HFA 108 (90 HFA 108 (90 _as_nee HFA 108 Base) Base) ded} (90 Base) MCG/ACT MCG/ACT MCG/ACT Aspir-81 81 Aspir-81 81 No 1{table QD Aspir-81 MG MG t} 81 MG Budesonide Budesonide No Budesonide (Inhalation (Inhalation (Inhalatio ) ) n) Breo Breo No 1{puff} QD Breo Ellipta Ellipta Ellipta 100-25 100-25 100-25 MCG/INH MCG/INH MCG/INH Carvedilol Carvedilol No BID Carvedilol 3.125 MG 3.125 MG 3.125 MG Bumetanide Bumetanide No Bumetanide 1 MG 1 MG 1 MG Vitamin C Vitamin C No 1{table QD Vitamin C 500 MG 500 MG t} 500 MG Fluticasone Fluticasone No QD Fluticason Propionate Propionate e 50 MCG/ACT 50 MCG/ACT Propionate 50 MCG/ACT Albuterol Albuterol No 3{ml_as TID Albuterol Sulfate Sulfate _needed Sulfate (2.5 (2.5 } (2.5 MG/3ML) MG/3ML) MG/3ML) 0.083% 0.083% 0.083% Spironolact Spironolact No Spironolac one 25 MG one 25 MG tone 25 MG Lipitor 10 Lipitor 10 No 1{table QD Lipitor 10 MG MG t} MG traMADol traMADol No traMADol HCl 50 MG HCl 50 MG HCl 50 MG Pantoprazol Pantoprazol No 1{table QD Pantoprazo e Sodium 40 e Sodium 40 t} le Sodium MG MG 40 MG Pantoprazol Pantoprazol No Pantoprazo e Sodium 40 e Sodium 40 le Sodium MG MG 40 MG Citalopram Citalopram No 1{table QD Citalopram Hydrobromid Hydrobromid t} Hydrobromi e 40 MG e 40 MG de 40 MG Bumex 1 MG Bumex 1 MG No 1{table BID Bumex 1 MG t} Acetaminoph Acetaminoph No QID Acetaminop en 500 MG en 500 MG hen 500 MG Spiriva Spiriva No 1{capsu QD Spiriva HandiHaler HandiHaler le} HandiHaler 18 MCG 18 MCG 18 MCG Victoza 18 Victoza 18 No Victoza 18 MG/3ML MG/3ML MG/3ML Potassium Potassium No 2{table QD Potassium Chloride 20 Chloride 20 ts_with Chloride MEQ MEQ _food} 20 MEQ Spiriva Spiriva No 1{capsu QD Spiriva HandiHaler HandiHaler le} HandiHaler 18 MCG 18 MCG 18 MCG Victoza 18 Victoza 18 No QD Victoza 18 MG/3ML MG/3ML MG/3ML Atropine Atropine No QD Atropine Sulfate 1 % Sulfate 1 % Sulfate 1 % Sildenafil Sildenafil No 1{table TID Sildenafil Citrate 20 Citrate 20 t} Citrate 20 MG MG MG Lipitor 10 Lipitor 10 No 1{table QD Lipitor 10 MG MG t} MG ALPRAZolam ALPRAZolam No ALPRAZolam 0.25 MG 0.25 MG 0.25 MG Citalopram Citalopram No Citalopram Hydrobromid Hydrobromid Hydrobromi e 40 MG e 40 MG de 40 MG Vitamin B12 Vitamin B12 No 1{table QD Vitamin 1000 MCG 1000 MCG t} B12 1000 MCG Ventolin Ventolin No 2{puffs QID Ventolin HFA 108 (90 HFA 108 (90 _as_nee HFA 108 Base) Base) ded} (90 Base) MCG/ACT MCG/ACT MCG/ACT Spironolact Spironolact No Spironolac one 25 MG one 25 MG tone 25 MG Aspir-81 81 Aspir-81 81 No 1{table QD Aspir-81 MG MG t} 81 MG Budesonide Budesonide No Budesonide (Inhalation (Inhalation (Inhalatio ) ) n) Breo Breo No 1{puff} QD Breo Ellipta Ellipta Ellipta 100-25 100-25 100-25 MCG/INH MCG/INH MCG/INH Carvedilol Carvedilol No BID Carvedilol 3.125 MG 3.125 MG 3.125 MG Bumetanide Bumetanide No Bumetanide 1 MG 1 MG 1 MG Vitamin C Vitamin C No 1{table QD Vitamin C 500 MG 500 MG t} 500 MG Fluticasone Fluticasone No QD Fluticason Propionate Propionate e 50 MCG/ACT 50 MCG/ACT Propionate 50 MCG/ACT Albuterol Albuterol No 3{ml_as TID Albuterol Sulfate Sulfate _needed Sulfate (2.5 (2.5 } (2.5 MG/3ML) MG/3ML) MG/3ML) 0.083% 0.083% 0.083% Spironolact Spironolact No Spironolac one 25 MG one 25 MG tone 25 MG Vitamin C Vitamin C No 1{table QD Vitamin C 500 MG 500 MG t} 500 MG traMADol traMADol No traMADol HCl 50 MG HCl 50 MG HCl 50 MG Pantoprazol Pantoprazol No 1{table QD Pantoprazo e Sodium 40 e Sodium 40 t} le Sodium MG MG 40 MG Pantoprazol Pantoprazol No Pantoprazo e Sodium 40 e Sodium 40 le Sodium MG MG 40 MG Citalopram Citalopram No 1{table QD Citalopram Hydrobromid Hydrobromid t} Hydrobromi e 40 MG e 40 MG de 40 MG Bumex 1 MG Bumex 1 MG No 1{table BID Bumex 1 MG t} Acetaminoph Acetaminoph No QID Acetaminop en 500 MG en 500 MG hen 500 MG Spiriva Spiriva No 1{capsu QD Spiriva HandiHaler HandiHaler le} HandiHaler 18 MCG 18 MCG 18 MCG Victoza 18 Victoza 18 No Victoza 18 MG/3ML MG/3ML MG/3ML Potassium Potassium No 2{table QD Potassium Chloride 20 Chloride 20 ts_with Chloride MEQ MEQ _food} 20 MEQ metOLazone metOLazone No 1{table QD metOLazone 2.5 MG 2.5 MG t} 2.5 MG Victoza 18 Victoza 18 No QD Victoza 18 MG/3ML MG/3ML MG/3ML Atropine Atropine No QD Atropine Sulfate 1 % Sulfate 1 % Sulfate 1 % Sildenafil Sildenafil No 1{table TID Sildenafil Citrate 20 Citrate 20 t} Citrate 20 MG MG MG Lipitor 10 Lipitor 10 No 1{table QD Lipitor 10 MG MG t} MG ALPRAZolam ALPRAZolam No ALPRAZolam 0.25 MG 0.25 MG 0.25 MG Citalopram Citalopram No Citalopram Hydrobromid Hydrobromid Hydrobromi e 40 MG e 40 MG de 40 MG Vitamin B12 Vitamin B12 No 1{table QD Vitamin 1000 MCG 1000 MCG t} B12 1000 MCG Ventolin Ventolin No 2{puffs QID Ventolin HFA 108 (90 HFA 108 (90 _as_nee HFA 108 Base) Base) ded} (90 Base) MCG/ACT MCG/ACT MCG/ACT Jardiance Jardiance No Jardiance 10 MG 10 MG 10 MG Citalopram Citalopram No 1{table QD Citalopram Hydrobromid Hydrobromid t} Hydrobromi e 40 MG e 40 MG de 40 MG Budesonide Budesonide No Budesonide (Inhalation (Inhalation (Inhalatio ) ) n) Breo Breo No 1{puff} QD Breo Ellipta Ellipta Ellipta 100-25 100-25 100-25 MCG/INH MCG/INH MCG/INH Spironolact Spironolact No Spironolac one 25 MG one 25 MG tone 25 MG Ventolin Ventolin No 2{puffs QID Ventolin HFA 108 (90 HFA 108 (90 _as_nee HFA 108 Base) Base) ded} (90 Base) MCG/ACT MCG/ACT MCG/ACT Vitamin C Vitamin C No 1{table QD Vitamin C 500 MG 500 MG t} 500 MG ALPRAZolam ALPRAZolam No ALPRAZolam 0.25 MG 0.25 MG 0.25 MG Albuterol Albuterol No 3{ml_as TID Albuterol Sulfate Sulfate _needed Sulfate (2.5 (2.5 } (2.5 MG/3ML) MG/3ML) MG/3ML) 0.083% 0.083% 0.083% traMADol traMADol No traMADol HCl 50 MG HCl 50 MG HCl 50 MG Victoza 18 Victoza 18 No Victoza 18 MG/3ML MG/3ML MG/3ML Citalopram Citalopram No 1{table QD Citalopram Hydrobromid Hydrobromid t} Hydrobromi e 40 MG e 40 MG de 40 MG Fluticasone Fluticasone No QD Fluticason Propionate Propionate e 50 MCG/ACT 50 MCG/ACT Propionate 50 MCG/ACT Aspir-81 81 Aspir-81 81 No 1{table QD Aspir-81 MG MG t} 81 MG Acetaminoph Acetaminoph No QID Acetaminop en 500 MG en 500 MG hen 500 MG Lipitor 10 Lipitor 10 No 1{table QD Lipitor 10 MG MG t} MG Sildenafil Sildenafil No 1{table TID Sildenafil Citrate 20 Citrate 20 t} Citrate 20 MG MG MG Spiriva Spiriva No 1{capsu QD Spiriva HandiHaler HandiHaler le} HandiHaler 18 MCG 18 MCG 18 MCG Victoza 18 Victoza 18 No QD Victoza 18 MG/3ML MG/3ML MG/3ML Pantoprazol Pantoprazol No 1{table QD Pantoprazo e Sodium 40 e Sodium 40 t} le Sodium MG MG 40 MG Bumetanide Bumetanide No Bumetanide 1 MG 1 MG 1 MG Pantoprazol Pantoprazol No Pantoprazo e Sodium 40 e Sodium 40 le Sodium MG MG 40 MG Sildenafil Sildenafil No Sildenafil Citrate 20 Citrate 20 Citrate 20 MG MG MG Potassium Potassium No 2{table QD Potassium Chloride 20 Chloride 20 ts_with Chloride MEQ MEQ _food} 20 MEQ Atropine Atropine No QD Atropine Sulfate 1 % Sulfate 1 % Sulfate 1 % Bumex 1 MG Bumex 1 MG No 1{table BID Bumex 1 MG t} Citalopram Citalopram No Citalopram Hydrobromid Hydrobromid Hydrobromi e 40 MG e 40 MG de 40 MG Vitamin B12 Vitamin B12 No 1{table QD Vitamin 1000 MCG 1000 MCG t} B12 1000 MCG Carvedilol Carvedilol No BID Carvedilol 3.125 MG 3.125 MG 3.125 MG Potassium Potassium No 2{table QD Potassium Chloride 20 Chloride 20 ts_with Chloride MEQ MEQ _food} 20 MEQ Bumex 1 MG Bumex 1 MG No BID Bumex 1 MG metOLazone metOLazone No metOLazone 2.5 MG 2.5 MG 2.5 MG traMADol traMADol No traMADol HCl 50 MG HCl 50 MG HCl 50 MG Potassium Potassium No Potassium Chloride Chloride Chloride Jolene ER 20 Jolene ER 20 Jolene ER 20 MEQ MEQ MEQ Bumex 1 MG Bumex 1 MG No 1{table BID Bumex 1 MG t} Acetaminoph Acetaminoph No QID Acetaminop en 500 MG en 500 MG hen 500 MG Aspir-81 81 Aspir-81 81 No 1{table QD Aspir-81 MG MG t} 81 MG Citalopram Citalopram No Citalopram Hydrobromid Hydrobromid Hydrobromi e 40 MG e 40 MG de 40 MG Spironolact Spironolact No Spironolac one 25 MG one 25 MG tone 25 MG Albuterol Albuterol No 3{ml_as TID Albuterol Sulfate Sulfate _needed Sulfate (2.5 (2.5 } (2.5 MG/3ML) MG/3ML) MG/3ML) 0.083% 0.083% 0.083% Spiriva Spiriva No 1{capsu QD Spiriva HandiHaler HandiHaler le} HandiHaler 18 MCG 18 MCG 18 MCG Lipitor 10 Lipitor 10 No 1{table QD Lipitor 10 MG MG t} MG ALPRAZolam ALPRAZolam No ALPRAZolam 0.25 MG 0.25 MG 0.25 MG Victoza 18 Victoza 18 No Victoza 18 MG/3ML MG/3ML MG/3ML Breo Breo No 1{puff} QD Breo Ellipta Ellipta Ellipta 100-25 100-25 100-25 MCG/INH MCG/INH MCG/INH Pantoprazol Pantoprazol No Pantoprazo e Sodium 40 e Sodium 40 le Sodium MG MG 40 MG Victoza 18 Victoza 18 No QD Victoza 18 MG/3ML MG/3ML MG/3ML Ilevro 0.3 Ilevro 0.3 No 1{drop_ QD Ilevro 0.3 % % into_af % fected_ eye} Ventolin Ventolin No 2{puffs QID Ventolin HFA 108 (90 HFA 108 (90 _as_nee HFA 108 Base) Base) ded} (90 Base) MCG/ACT MCG/ACT MCG/ACT Atropine Atropine No QD Atropine Sulfate 1 % Sulfate 1 % Sulfate 1 % Azelastine Azelastine No Azelastine HCl 0.15 % HCl 0.15 % HCl 0.15 % Carvedilol Carvedilol No Carvedilol 3.125 MG 3.125 MG 3.125 MG Sildenafil Sildenafil No 1{table TID Sildenafil Citrate 20 Citrate 20 t} Citrate 20 MG MG MG Potassium Potassium No 2{table QD Potassium Chloride 20 Chloride 20 ts_with Chloride MEQ MEQ _food} 20 MEQ Bumetanide Bumetanide No Bumetanide 1 MG 1 MG 1 MG Vitamin B12 Vitamin B12 No 1{table QD Vitamin 1000 MCG 1000 MCG t} B12 1000 MCG Fluticasone Fluticasone No QD Fluticason Propionate Propionate e 50 MCG/ACT 50 MCG/ACT Propionate 50 MCG/ACT Aspir-81 81 Aspir-81 81 No 1{table QD Aspir-81 MG MG t} 81 MG Incruse Incruse No 1{puff} QD Incruse Ellipta Ellipta Ellipta 62.5 62.5 62.5 MCG/INH MCG/INH MCG/INH Vitamin C Vitamin C No 1{table QD Vitamin C 500 MG 500 MG t} 500 MG Carvedilol Carvedilol No BID Carvedilol 3.125 MG 3.125 MG 3.125 MG traMADol traMADol No traMADol HCl 50 MG HCl 50 MG HCl 50 MG Potassium Potassium No Potassium Chloride Chloride Chloride Jolene ER 20 Jolene ER 20 Jolene ER 20 MEQ MEQ MEQ Bumex 1 MG Bumex 1 MG No 1{table BID Bumex 1 MG t} Acetaminoph Acetaminoph No QID Acetaminop en 500 MG en 500 MG hen 500 MG Citalopram Citalopram No Citalopram Hydrobromid Hydrobromid Hydrobromi e 40 MG e 40 MG de 40 MG Spironolact Spironolact No Spironolac one 25 MG one 25 MG tone 25 MG Albuterol Albuterol No 3{ml_as TID Albuterol Sulfate Sulfate _needed Sulfate (2.5 (2.5 } (2.5 MG/3ML) MG/3ML) MG/3ML) 0.083% 0.083% 0.083% Spiriva Spiriva No 1{capsu QD Spiriva HandiHaler HandiHaler le} HandiHaler 18 MCG 18 MCG 18 MCG Lipitor 10 Lipitor 10 No 1{table QD Lipitor 10 MG MG t} MG ALPRAZolam ALPRAZolam No ALPRAZolam 0.25 MG 0.25 MG 0.25 MG Ventolin Ventolin No 2{puffs QID Ventolin HFA 108 (90 HFA 108 (90 _as_nee HFA 108 Base) Base) ded} (90 Base) MCG/ACT MCG/ACT MCG/ACT Victoza 18 Victoza 18 No Victoza 18 MG/3ML MG/3ML MG/3ML Breo Breo No 1{puff} QD Breo Ellipta Ellipta Ellipta 100-25 100-25 100-25 MCG/INH MCG/INH MCG/INH Pantoprazol Pantoprazol No Pantoprazo e Sodium 40 e Sodium 40 le Sodium MG MG 40 MG Victoza 18 Victoza 18 No QD Victoza 18 MG/3ML MG/3ML MG/3ML Ventolin Ventolin No 2{puffs QID Ventolin HFA 108 (90 HFA 108 (90 _as_nee HFA 108 Base) Base) ded} (90 Base) MCG/ACT MCG/ACT MCG/ACT Atropine Atropine No QD Atropine Sulfate 1 % Sulfate 1 % Sulfate 1 % Azelastine Azelastine No Azelastine HCl 0.15 % HCl 0.15 % HCl 0.15 % Carvedilol Carvedilol No Carvedilol 3.125 MG 3.125 MG 3.125 MG Sildenafil Sildenafil No 1{table TID Sildenafil Citrate 20 Citrate 20 t} Citrate 20 MG MG MG Potassium Potassium No 2{table QD Potassium Chloride 20 Chloride 20 ts_with Chloride MEQ MEQ _food} 20 MEQ Pantoprazol Pantoprazol No Pantoprazo e Sodium 40 e Sodium 40 le Sodium MG MG 40 MG Bumetanide Bumetanide No Bumetanide 1 MG 1 MG 1 MG Vitamin B12 Vitamin B12 No 1{table QD Vitamin 1000 MCG 1000 MCG t} B12 1000 MCG Fluticasone Fluticasone No QD Fluticason Propionate Propionate e 50 MCG/ACT 50 MCG/ACT Propionate 50 MCG/ACT Aspir-81 81 Aspir-81 81 No 1{table QD Aspir-81 MG MG t} 81 MG Vitamin C Vitamin C No 1{table QD Vitamin C 500 MG 500 MG t} 500 MG traMADol traMADol No traMADol HCl 50 MG HCl 50 MG HCl 50 MG Potassium Potassium No Potassium Chloride Chloride Chloride Jolene ER 20 Jolene ER 20 Jolene ER 20 MEQ MEQ MEQ Acetaminoph Acetaminoph No QID Acetaminop en 500 MG en 500 MG hen 500 MG Bumex 1 MG Bumex 1 MG No 1{table BID Bumex 1 MG t} Acetaminoph Acetaminoph No QID Acetaminop en 500 MG en 500 MG hen 500 MG Citalopram Citalopram No Citalopram Hydrobromid Hydrobromid Hydrobromi e 40 MG e 40 MG de 40 MG Spironolact Spironolact No Spironolac one 25 MG one 25 MG tone 25 MG Albuterol Albuterol No 3{ml_as TID Albuterol Sulfate Sulfate _needed Sulfate (2.5 (2.5 } (2.5 MG/3ML) MG/3ML) MG/3ML) 0.083% 0.083% 0.083% Spiriva Spiriva No 1{capsu QD Spiriva HandiHaler HandiHaler le} HandiHaler 18 MCG 18 MCG 18 MCG Lipitor 10 Lipitor 10 No 1{table QD Lipitor 10 MG MG t} MG ALPRAZolam ALPRAZolam No ALPRAZolam 0.25 MG 0.25 MG 0.25 MG Victoza 18 Victoza 18 No Victoza 18 MG/3ML MG/3ML MG/3ML Breo Breo No 1{puff} QD Breo Ellipta Ellipta Ellipta 100-25 100-25 100-25 MCG/INH MCG/INH MCG/INH Victoza 18 Victoza 18 No QD Victoza 18 MG/3ML MG/3ML MG/3ML Pantoprazol Pantoprazol No Pantoprazo e Sodium 40 e Sodium 40 le Sodium MG MG 40 MG Victoza 18 Victoza 18 No QD Victoza 18 MG/3ML MG/3ML MG/3ML Ventolin Ventolin No 2{puffs QID Ventolin HFA 108 (90 HFA 108 (90 _as_nee HFA 108 Base) Base) ded} (90 Base) MCG/ACT MCG/ACT MCG/ACT Atropine Atropine No QD Atropine Sulfate 1 % Sulfate 1 % Sulfate 1 % Azelastine Azelastine No Azelastine HCl 0.15 % HCl 0.15 % HCl 0.15 % Carvedilol Carvedilol No Carvedilol 3.125 MG 3.125 MG 3.125 MG Sildenafil Sildenafil No 1{table TID Sildenafil Citrate 20 Citrate 20 t} Citrate 20 MG MG MG Potassium Potassium No 2{table QD Potassium Chloride 20 Chloride 20 ts_with Chloride MEQ MEQ _food} 20 MEQ Bumetanide Bumetanide No Bumetanide 1 MG 1 MG 1 MG Vitamin B12 Vitamin B12 No 1{table QD Vitamin 1000 MCG 1000 MCG t} B12 1000 MCG Breo Breo No 1{puff} QD Breo Ellipta Ellipta Ellipta 100-25 100-25 100-25 MCG/INH MCG/INH MCG/INH Fluticasone Fluticasone No QD Fluticason Propionate Propionate e 50 MCG/ACT 50 MCG/ACT Propionate 50 MCG/ACT Aspir-81 81 Aspir-81 81 No 1{table QD Aspir-81 MG MG t} 81 MG Vitamin C Vitamin C No 1{table QD Vitamin C 500 MG 500 MG t} 500 MG traMADol traMADol No traMADol HCl 50 MG HCl 50 MG HCl 50 MG Potassium Potassium No Potassium Chloride Chloride Chloride Jolene ER 20 Jolene ER 20 Jolene ER 20 MEQ MEQ MEQ Bumex 1 MG Bumex 1 MG No 1{table BID Bumex 1 MG t} Acetaminoph Acetaminoph No QID Acetaminop en 500 MG en 500 MG hen 500 MG Albuterol Albuterol No 3{ml_as TID Albuterol Sulfate Sulfate _needed Sulfate (2.5 (2.5 } (2.5 MG/3ML) MG/3ML) MG/3ML) 0.083% 0.083% 0.083% Citalopram Citalopram No Citalopram Hydrobromid Hydrobromid Hydrobromi e 40 MG e 40 MG de 40 MG Spironolact Spironolact No Spironolac one 25 MG one 25 MG tone 25 MG Albuterol Albuterol No 3{ml_as TID Albuterol Sulfate Sulfate _needed Sulfate (2.5 (2.5 } (2.5 MG/3ML) MG/3ML) MG/3ML) 0.083% 0.083% 0.083% Spiriva Spiriva No 1{capsu QD Spiriva HandiHaler HandiHaler le} HandiHaler 18 MCG 18 MCG 18 MCG Lipitor 10 Lipitor 10 No 1{table QD Lipitor 10 MG MG t} MG ALPRAZolam ALPRAZolam No ALPRAZolam 0.25 MG 0.25 MG 0.25 MG Victoza 18 Victoza 18 No Victoza 18 MG/3ML MG/3ML MG/3ML Breo Breo No 1{puff} QD Breo Ellipta Ellipta Ellipta 100-25 100-25 100-25 MCG/INH MCG/INH MCG/INH Pantoprazol Pantoprazol No Pantoprazo e Sodium 40 e Sodium 40 le Sodium MG MG 40 MG Victoza 18 Victoza 18 No QD Victoza 18 MG/3ML MG/3ML MG/3ML Vitamin B12 Vitamin B12 No 1{table QD Vitamin 1000 MCG 1000 MCG t} B12 1000 MCG Ventolin Ventolin No 2{puffs QID Ventolin HFA 108 (90 HFA 108 (90 _as_nee HFA 108 Base) Base) ded} (90 Base) MCG/ACT MCG/ACT MCG/ACT Atropine Atropine No QD Atropine Sulfate 1 % Sulfate 1 % Sulfate 1 % Azelastine Azelastine No Azelastine HCl 0.15 % HCl 0.15 % HCl 0.15 % Carvedilol Carvedilol No Carvedilol 3.125 MG 3.125 MG 3.125 MG Sildenafil Sildenafil No 1{table TID Sildenafil Citrate 20 Citrate 20 t} Citrate 20 MG MG MG Potassium Potassium No 2{table QD Potassium Chloride 20 Chloride 20 ts_with Chloride MEQ MEQ _food} 20 MEQ Bumetanide Bumetanide No Bumetanide 1 MG 1 MG 1 MG Vitamin B12 Vitamin B12 No 1{table QD Vitamin 1000 MCG 1000 MCG t} B12 1000 MCG Fluticasone Fluticasone No QD Fluticason Propionate Propionate e 50 MCG/ACT 50 MCG/ACT Propionate 50 MCG/ACT Aspir-81 81 Aspir-81 81 No 1{table QD Aspir-81 MG MG t} 81 MG Atropine Atropine No QD Atropine Sulfate 1 % Sulfate 1 % Sulfate 1 % Vitamin C Vitamin C No 1{table QD Vitamin C 500 MG 500 MG t} 500 MG traMADol traMADol No traMADol HCl 50 MG HCl 50 MG HCl 50 MG Potassium Potassium No Potassium Chloride Chloride Chloride Jolene ER 20 Jolene ER 20 Jolene ER 20 MEQ MEQ MEQ Bumex 1 MG Bumex 1 MG No 1{table BID Bumex 1 MG t} Acetaminoph Acetaminoph No QID Acetaminop en 500 MG en 500 MG hen 500 MG Citalopram Citalopram No Citalopram Hydrobromid Hydrobromid Hydrobromi e 40 MG e 40 MG de 40 MG ALPRAZolam ALPRAZolam No ALPRAZolam 0.25 MG 0.25 MG 0.25 MG Spironolact Spironolact No Spironolac one 25 MG one 25 MG tone 25 MG Albuterol Albuterol No 3{ml_as TID Albuterol Sulfate Sulfate _needed Sulfate (2.5 (2.5 } (2.5 MG/3ML) MG/3ML) MG/3ML) 0.083% 0.083% 0.083% Spiriva Spiriva No 1{capsu QD Spiriva HandiHaler HandiHaler le} HandiHaler 18 MCG 18 MCG 18 MCG Lipitor 10 Lipitor 10 No 1{table QD Lipitor 10 MG MG t} MG ALPRAZolam ALPRAZolam No ALPRAZolam 0.25 MG 0.25 MG 0.25 MG Victoza 18 Victoza 18 No Victoza 18 MG/3ML MG/3ML MG/3ML Breo Breo No 1{puff} QD Breo Ellipta Ellipta Ellipta 100-25 100-25 100-25 MCG/INH MCG/INH MCG/INH Pantoprazol Pantoprazol No Pantoprazo e Sodium 40 e Sodium 40 le Sodium MG MG 40 MG Victoza 18 Victoza 18 No QD Victoza 18 MG/3ML MG/3ML MG/3ML Ventolin Ventolin No 2{puffs QID Ventolin HFA 108 (90 HFA 108 (90 _as_nee HFA 108 Base) Base) ded} (90 Base) MCG/ACT MCG/ACT MCG/ACT Fluticasone Fluticasone No QD Fluticason Propionate Propionate e 50 MCG/ACT 50 MCG/ACT Propionate 50 MCG/ACT Atropine Atropine No QD Atropine Sulfate 1 % Sulfate 1 % Sulfate 1 % Azelastine Azelastine No Azelastine HCl 0.15 % HCl 0.15 % HCl 0.15 % Carvedilol Carvedilol No Carvedilol 3.125 MG 3.125 MG 3.125 MG Sildenafil Sildenafil No 1{table TID Sildenafil Citrate 20 Citrate 20 t} Citrate 20 MG MG MG Potassium Potassium No 2{table QD Potassium Chloride 20 Chloride 20 ts_with Chloride MEQ MEQ _food} 20 MEQ Bumetanide Bumetanide No Bumetanide 1 MG 1 MG 1 MG Vitamin B12 Vitamin B12 No 1{table QD Vitamin 1000 MCG 1000 MCG t} B12 1000 MCG Fluticasone Fluticasone No QD Fluticason Propionate Propionate e 50 MCG/ACT 50 MCG/ACT Propionate 50 MCG/ACT Aspir-81 81 Aspir-81 81 No 1{table QD Aspir-81 MG MG t} 81 MG Vitamin C Vitamin C No 1{table QD Vitamin C 500 MG 500 MG t} 500 MG Bumetanide Bumetanide No Bumetanide 1 MG 1 MG 1 MG Besivance Besivance No 1{drop_ TID Besivance 0.6 % 0.6 % into_af 0.6 % fected_ eye} Jardiance Jardiance No 1{table QD Jardiance 10 MG 10 MG t} 10 MG Durezol Durezol No 1{drop_ BID Durezol 0.05 % 0.05 % into_af 0.05 % fected_ eye} Bumetanide Bumetanide No Bumetanide 1 MG 1 MG 1 MG Vitamin C Vitamin C No 1{table QD Vitamin C 500 MG 500 MG t} 500 MG Victoza 18 Victoza 18 No Victoza 18 MG/3ML MG/3ML MG/3ML Potassium Potassium No 2{table QD Potassium Chloride 20 Chloride 20 ts_with Chloride MEQ MEQ _food} 20 MEQ Spiriva Spiriva No 1{capsu QD Spiriva HandiHaler HandiHaler le} HandiHaler 18 MCG 18 MCG 18 MCG Vitamin B12 Vitamin B12 No 1{table QD Vitamin 1000 MCG 1000 MCG t} B12 1000 MCG Atropine Atropine No QD Atropine Sulfate 1 % Sulfate 1 % Sulfate 1 % traMADol traMADol No traMADol HCl 50 MG HCl 50 MG HCl 50 MG Albuterol Albuterol No 3{ml_as TID Albuterol Sulfate Sulfate _needed Sulfate (2.5 (2.5 } (2.5 MG/3ML) MG/3ML) MG/3ML) 0.083% 0.083% 0.083% Fluticasone Fluticasone No QD Fluticason Propionate Propionate e 50 MCG/ACT 50 MCG/ACT Propionate 50 MCG/ACT Sildenafil Sildenafil No 1{table TID Sildenafil Citrate 20 Citrate 20 t} Citrate 20 MG MG MG Aspir-81 81 Aspir-81 81 No 1{table QD Aspir-81 MG MG t} 81 MG Lipitor 10 Lipitor 10 No 1{table QD Lipitor 10 MG MG t} MG Citalopram Citalopram No Citalopram Hydrobromid Hydrobromid Hydrobromi e 40 MG e 40 MG de 40 MG Pantoprazol Pantoprazol No Pantoprazo e Sodium 40 e Sodium 40 le Sodium MG MG 40 MG Carvedilol Carvedilol No BID Carvedilol 3.125 MG 3.125 MG 3.125 MG Citalopram Citalopram No 1{table QD Citalopram Hydrobromid Hydrobromid t} Hydrobromi e 40 MG e 40 MG de 40 MG Potassium Potassium No Potassium Chloride Chloride Chloride Jolene ER 20 Jolene ER 20 Jolene ER 20 MEQ MEQ MEQ Spironolact Spironolact No Spironolac one 25 MG one 25 MG tone 25 MG traMADol traMADol No traMADol HCl 50 MG HCl 50 MG HCl 50 MG Pantoprazol Pantoprazol No 1{table QD Pantoprazo e Sodium 40 e Sodium 40 t} le Sodium MG MG 40 MG Ventolin Ventolin No 2{puffs QID Ventolin HFA 108 (90 HFA 108 (90 _as_nee HFA 108 Base) Base) ded} (90 Base) MCG/ACT MCG/ACT MCG/ACT Bumex 1 MG Bumex 1 MG No 1{table BID Bumex 1 MG t} Victoza 18 Victoza 18 No QD Victoza 18 MG/3ML MG/3ML MG/3ML ALPRAZolam ALPRAZolam No ALPRAZolam 0.25 MG 0.25 MG 0.25 MG Azelastine Azelastine No Azelastine HCl 0.15 % HCl 0.15 % HCl 0.15 % Acetaminoph Acetaminoph No QID Acetaminop en 500 MG en 500 MG hen 500 MG Breo Breo No 1{puff} QD Breo Ellipta Ellipta Ellipta 100-25 100-25 100-25 MCG/INH MCG/INH MCG/INH Carvedilol Carvedilol No Carvedilol 3.125 MG 3.125 MG 3.125 MG Bumetanide Bumetanide No Bumetanide 1 MG 1 MG 1 MG Vitamin C Vitamin C No 1{table QD Vitamin C 500 MG 500 MG t} 500 MG Victoza 18 Victoza 18 No Victoza 18 MG/3ML MG/3ML MG/3ML Potassium Potassium No 2{table QD Potassium Chloride 20 Chloride 20 ts_with Chloride MEQ MEQ _food} 20 MEQ Spiriva Spiriva No 1{capsu QD Spiriva HandiHaler HandiHaler le} HandiHaler 18 MCG 18 MCG 18 MCG Vitamin B12 Vitamin B12 No 1{table QD Vitamin 1000 MCG 1000 MCG t} B12 1000 MCG Atropine Atropine No QD Atropine Sulfate 1 % Sulfate 1 % Sulfate 1 % Albuterol Albuterol No 3{ml_as TID Albuterol Sulfate Sulfate _needed Sulfate (2.5 (2.5 } (2.5 MG/3ML) MG/3ML) MG/3ML) 0.083% 0.083% 0.083% Fluticasone Fluticasone No QD Fluticason Propionate Propionate e 50 MCG/ACT 50 MCG/ACT Propionate 50 MCG/ACT Sildenafil Sildenafil No 1{table TID Sildenafil Citrate 20 Citrate 20 t} Citrate 20 MG MG MG Aspir-81 81 Aspir-81 81 No 1{table QD Aspir-81 MG MG t} 81 MG Lipitor 10 Lipitor 10 No 1{table QD Lipitor 10 MG MG t} MG Citalopram Citalopram No Citalopram Hydrobromid Hydrobromid Hydrobromi e 40 MG e 40 MG de 40 MG Pantoprazol Pantoprazol No Pantoprazo e Sodium 40 e Sodium 40 le Sodium MG MG 40 MG Carvedilol Carvedilol No BID Carvedilol 3.125 MG 3.125 MG 3.125 MG Citalopram Citalopram No 1{table QD Citalopram Hydrobromid Hydrobromid t} Hydrobromi e 40 MG e 40 MG de 40 MG Potassium Potassium No Potassium Chloride Chloride Chloride Jolene ER 20 Jolene ER 20 Jolene ER 20 MEQ MEQ MEQ Spironolact Spironolact No Spironolac one 25 MG one 25 MG tone 25 MG traMADol traMADol No traMADol HCl 50 MG HCl 50 MG HCl 50 MG Pantoprazol Pantoprazol No 1{table QD Pantoprazo e Sodium 40 e Sodium 40 t} le Sodium MG MG 40 MG Ventolin Ventolin No 2{puffs QID Ventolin HFA 108 (90 HFA 108 (90 _as_nee HFA 108 Base) Base) ded} (90 Base) MCG/ACT MCG/ACT MCG/ACT Bumex 1 MG Bumex 1 MG No 1{table BID Bumex 1 MG t} Victoza 18 Victoza 18 No QD Victoza 18 MG/3ML MG/3ML MG/3ML ALPRAZolam ALPRAZolam No ALPRAZolam 0.25 MG 0.25 MG 0.25 MG Azelastine Azelastine No Azelastine HCl 0.15 % HCl 0.15 % HCl 0.15 % Acetaminoph Acetaminoph No QID Acetaminop en 500 MG en 500 MG hen 500 MG Breo Breo No 1{puff} QD Breo Ellipta Ellipta Ellipta 100-25 100-25 100-25 MCG/INH MCG/INH MCG/INH Carvedilol Carvedilol No Carvedilol 3.125 MG 3.125 MG 3.125 MG Atropine Atropine No QD Atropine Sulfate 1 % Sulfate 1 % Sulfate 1 % Vitamin C Vitamin C No 1{table QD Vitamin C 500 MG 500 MG t} 500 MG Bumetanide Bumetanide No Bumetanide 1 MG 1 MG 1 MG Potassium Potassium No 2{table QD Potassium Chloride 20 Chloride 20 ts_with Chloride MEQ MEQ _food} 20 MEQ Sildenafil Sildenafil No 1{table TID Sildenafil Citrate 20 Citrate 20 t} Citrate 20 MG MG MG Vitamin B12 Vitamin B12 No 1{table QD Vitamin 1000 MCG 1000 MCG t} B12 1000 MCG Spiriva Spiriva No 1{capsu QD Spiriva HandiHaler HandiHaler le} HandiHaler 18 MCG 18 MCG 18 MCG Albuterol Albuterol No 3{ml_as TID Albuterol Sulfate Sulfate _needed Sulfate (2.5 (2.5 } (2.5 MG/3ML) MG/3ML) MG/3ML) 0.083% 0.083% 0.083% Fluticasone Fluticasone No QD Fluticason Propionate Propionate e 50 MCG/ACT 50 MCG/ACT Propionate 50 MCG/ACT traMADol traMADol No traMADol HCl 50 MG HCl 50 MG HCl 50 MG Aspir-81 81 Aspir-81 81 No 1{table QD Aspir-81 MG MG t} 81 MG Spironolact Spironolact No Spironolac one 25 MG one 25 MG tone 25 MG Citalopram Citalopram No Citalopram Hydrobromid Hydrobromid Hydrobromi e 40 MG e 40 MG de 40 MG Pantoprazol Pantoprazol No Pantoprazo e Sodium 40 e Sodium 40 le Sodium MG MG 40 MG Bumex 1 MG Bumex 1 MG No 1{table BID Bumex 1 MG t} Pantoprazol Pantoprazol No 1{table QD Pantoprazo e Sodium 40 e Sodium 40 t} le Sodium MG MG 40 MG Potassium Potassium No Potassium Chloride Chloride Chloride Jolene ER 20 Jolene ER 20 Jolene ER 20 MEQ MEQ MEQ Carvedilol Carvedilol No BID Carvedilol 3.125 MG 3.125 MG 3.125 MG Citalopram Citalopram No 1{table QD Citalopram Hydrobromid Hydrobromid t} Hydrobromi e 40 MG e 40 MG de 40 MG Ventolin Ventolin No 2{puffs QID Ventolin HFA 108 (90 HFA 108 (90 _as_nee HFA 108 Base) Base) ded} (90 Base) MCG/ACT MCG/ACT MCG/ACT Victoza 18 Victoza 18 No Victoza 18 MG/3ML MG/3ML MG/3ML Victoza 18 Victoza 18 No QD Victoza 18 MG/3ML MG/3ML MG/3ML ALPRAZolam ALPRAZolam No ALPRAZolam 0.25 MG 0.25 MG 0.25 MG Azelastine Azelastine No Azelastine HCl 0.15 % HCl 0.15 % HCl 0.15 % Acetaminoph Acetaminoph No QID Acetaminop en 500 MG en 500 MG hen 500 MG Breo Breo No 1{puff} QD Breo Ellipta Ellipta Ellipta 100-25 100-25 100-25 MCG/INH MCG/INH MCG/INH Carvedilol Carvedilol No Carvedilol 3.125 MG 3.125 MG 3.125 MG Atropine Atropine No QD Atropine Sulfate 1 % Sulfate 1 % Sulfate 1 % Vitamin C Vitamin C No 1{table QD Vitamin C 500 MG 500 MG t} 500 MG Bumetanide Bumetanide No Bumetanide 1 MG 1 MG 1 MG Potassium Potassium No 2{table QD Potassium Chloride 20 Chloride 20 ts_with Chloride MEQ MEQ _food} 20 MEQ Sildenafil Sildenafil No 1{table TID Sildenafil Citrate 20 Citrate 20 t} Citrate 20 MG MG MG Vitamin B12 Vitamin B12 No 1{table QD Vitamin 1000 MCG 1000 MCG t} B12 1000 MCG Spiriva Spiriva No 1{capsu QD Spiriva HandiHaler HandiHaler le} HandiHaler 18 MCG 18 MCG 18 MCG Albuterol Albuterol No 3{ml_as TID Albuterol Sulfate Sulfate _needed Sulfate (2.5 (2.5 } (2.5 MG/3ML) MG/3ML) MG/3ML) 0.083% 0.083% 0.083% Fluticasone Fluticasone No QD Fluticason Propionate Propionate e 50 MCG/ACT 50 MCG/ACT Propionate 50 MCG/ACT traMADol traMADol No traMADol HCl 50 MG HCl 50 MG HCl 50 MG Aspir-81 81 Aspir-81 81 No 1{table QD Aspir-81 MG MG t} 81 MG Spironolact Spironolact No Spironolac one 25 MG one 25 MG tone 25 MG Citalopram Citalopram No Citalopram Hydrobromid Hydrobromid Hydrobromi e 40 MG e 40 MG de 40 MG Pantoprazol Pantoprazol No Pantoprazo e Sodium 40 e Sodium 40 le Sodium MG MG 40 MG Bumex 1 MG Bumex 1 MG No 1{table BID Bumex 1 MG t} Pantoprazol Pantoprazol No 1{table QD Pantoprazo e Sodium 40 e Sodium 40 t} le Sodium MG MG 40 MG Spironolact Spironolact No Spironolac one 25 MG one 25 MG tone 25 MG Potassium Potassium No Potassium Chloride Chloride Chloride Jolene ER 20 Jolene ER 20 Jolene ER 20 MEQ MEQ MEQ Carvedilol Carvedilol No BID Carvedilol 3.125 MG 3.125 MG 3.125 MG Citalopram Citalopram No 1{table QD Citalopram Hydrobromid Hydrobromid t} Hydrobromi e 40 MG e 40 MG de 40 MG Ventolin Ventolin No 2{puffs QID Ventolin HFA 108 (90 HFA 108 (90 _as_nee HFA 108 Base) Base) ded} (90 Base) MCG/ACT MCG/ACT MCG/ACT Victoza 18 Victoza 18 No Victoza 18 MG/3ML MG/3ML MG/3ML Victoza 18 Victoza 18 No QD Victoza 18 MG/3ML MG/3ML MG/3ML ALPRAZolam ALPRAZolam No ALPRAZolam 0.25 MG 0.25 MG 0.25 MG Azelastine Azelastine No Azelastine HCl 0.15 % HCl 0.15 % HCl 0.15 % Acetaminoph Acetaminoph No QID Acetaminop en 500 MG en 500 MG hen 500 MG Spiriva Spiriva No 1{capsu QD Spiriva HandiHaler HandiHaler le} HandiHaler 18 MCG 18 MCG 18 MCG Breo Breo No 1{puff} QD Breo Ellipta Ellipta Ellipta 100-25 100-25 100-25 MCG/INH MCG/INH MCG/INH Carvedilol Carvedilol No Carvedilol 3.125 MG 3.125 MG 3.125 MG Bumetanide Bumetanide No Bumetanide 1 MG 1 MG 1 MG Potassium Potassium No 2{table QD Potassium Chloride 20 Chloride 20 ts_with Chloride MEQ MEQ _food} 20 MEQ Albuterol Albuterol No 3{ml_as TID Albuterol Sulfate Sulfate _needed Sulfate (2.5 (2.5 } (2.5 MG/3ML) MG/3ML) MG/3ML) 0.083% 0.083% 0.083% ALPRAZolam ALPRAZolam No ALPRAZolam 0.25 MG 0.25 MG 0.25 MG Spiriva Spiriva No 1{capsu QD Spiriva HandiHaler HandiHaler le} HandiHaler 18 MCG 18 MCG 18 MCG Vitamin B12 Vitamin B12 No 1{table QD Vitamin 1000 MCG 1000 MCG t} B12 1000 MCG Atropine Atropine No QD Atropine Sulfate 1 % Sulfate 1 % Sulfate 1 % Vitamin C Vitamin C No 1{table QD Vitamin C 500 MG 500 MG t} 500 MG Fluticasone Fluticasone No QD Fluticason Propionate Propionate e 50 MCG/ACT 50 MCG/ACT Propionate 50 MCG/ACT Sildenafil Sildenafil No 1{table TID Sildenafil Citrate 20 Citrate 20 t} Citrate 20 MG MG MG Aspir-81 81 Aspir-81 81 No 1{table QD Aspir-81 MG MG t} 81 MG Spironolact Spironolact No Spironolac one 25 MG one 25 MG tone 25 MG Citalopram Citalopram No Citalopram Hydrobromid Hydrobromid Hydrobromi e 40 MG e 40 MG de 40 MG Pantoprazol Pantoprazol No Pantoprazo e Sodium 40 e Sodium 40 le Sodium MG MG 40 MG Vitamin C Vitamin C No 1{table QD Vitamin C 500 MG 500 MG t} 500 MG Bumex 1 MG Bumex 1 MG No 1{table BID Bumex 1 MG t} Citalopram Citalopram No 1{table QD Citalopram Hydrobromid Hydrobromid t} Hydrobromi e 40 MG e 40 MG de 40 MG Potassium Potassium No Potassium Chloride Chloride Chloride Jolene ER 20 Jolene ER 20 Jolene ER 20 MEQ MEQ MEQ Carvedilol Carvedilol No BID Carvedilol 3.125 MG 3.125 MG 3.125 MG traMADol traMADol No traMADol HCl 50 MG HCl 50 MG HCl 50 MG Pantoprazol Pantoprazol No 1{table QD Pantoprazo e Sodium 40 e Sodium 40 t} le Sodium MG MG 40 MG Ventolin Ventolin No 2{puffs QID Ventolin HFA 108 (90 HFA 108 (90 _as_nee HFA 108 Base) Base) ded} (90 Base) MCG/ACT MCG/ACT MCG/ACT Victoza 18 Victoza 18 No Victoza 18 MG/3ML MG/3ML MG/3ML Victoza 18 Victoza 18 No QD Victoza 18 MG/3ML MG/3ML MG/3ML ALPRAZolam ALPRAZolam No ALPRAZolam 0.25 MG 0.25 MG 0.25 MG Citalopram Citalopram No 1{table QD Citalopram Hydrobromid Hydrobromid t} Hydrobromi e 40 MG e 40 MG de 40 MG Azelastine Azelastine No Azelastine HCl 0.15 % HCl 0.15 % HCl 0.15 % Acetaminoph Acetaminoph No QID Acetaminop en 500 MG en 500 MG hen 500 MG Breo Breo No 1{puff} QD Breo Ellipta Ellipta Ellipta 100-25 100-25 100-25 MCG/INH MCG/INH MCG/INH Carvedilol Carvedilol No Carvedilol 3.125 MG 3.125 MG 3.125 MG metOLazone metOLazone No metOLazone 2.5 MG 2.5 MG 2.5 MG Victoza 18 Victoza 18 No Victoza 18 MG/3ML MG/3ML MG/3ML Vitamin C Vitamin C No 1{table QD Vitamin C 500 MG 500 MG t} 500 MG Potassium Potassium No 2{table QD Potassium Chloride 20 Chloride 20 ts_with Chloride MEQ MEQ _food} 20 MEQ Bumetanide Bumetanide No Bumetanide 1 MG 1 MG 1 MG Aspir-81 81 Aspir-81 81 No 1{table QD Aspir-81 MG MG t} 81 MG Albuterol Albuterol No 3{ml_as TID Albuterol Sulfate Sulfate _needed Sulfate (2.5 (2.5 } (2.5 MG/3ML) MG/3ML) MG/3ML) 0.083% 0.083% 0.083% Vitamin B12 Vitamin B12 No 1{table QD Vitamin 1000 MCG 1000 MCG t} B12 1000 MCG Carvedilol Carvedilol No BID Carvedilol 3.125 MG 3.125 MG 3.125 MG Lipitor 10 Lipitor 10 No 1{table QD Lipitor 10 MG MG t} MG Lipitor 10 Lipitor 10 No 1{table QD Lipitor 10 MG MG t} MG Bumex 1 MG Bumex 1 MG No 1{table QD Bumex 1 MG t} Fluticasone Fluticasone No QD Fluticason Propionate Propionate e 50 MCG/ACT 50 MCG/ACT Propionate 50 MCG/ACT Ventolin Ventolin No 2{puffs QID Ventolin HFA 108 (90 HFA 108 (90 _as_nee HFA 108 Base) Base) ded} (90 Base) MCG/ACT MCG/ACT MCG/ACT traMADol traMADol No traMADol HCl 50 MG HCl 50 MG HCl 50 MG Sildenafil Sildenafil No 1{table TID Sildenafil Citrate 20 Citrate 20 t} Citrate 20 MG MG MG Citalopram Citalopram No 1{table QD Citalopram Hydrobromid Hydrobromid t} Hydrobromi e 40 MG e 40 MG de 40 MG Victoza 18 Victoza 18 No QD Victoza 18 MG/3ML MG/3ML MG/3ML Pantoprazol Pantoprazol No 1{table QD Pantoprazo e Sodium 40 e Sodium 40 t} le Sodium MG MG 40 MG ALPRAZolam ALPRAZolam No ALPRAZolam 0.25 MG 0.25 MG 0.25 MG Atropine Atropine No QD Atropine Sulfate 1 % Sulfate 1 % Sulfate 1 % Jardiance Jardiance No Jardiance 10 MG 10 MG 10 MG Spiriva Spiriva No 1{capsu QD Spiriva HandiHaler HandiHaler le} HandiHaler 18 MCG 18 MCG 18 MCG Citalopram Citalopram No Citalopram Hydrobromid Hydrobromid Hydrobromi e 40 MG e 40 MG de 40 MG Breo Breo No 1{puff} QD Breo Ellipta Ellipta Ellipta 100-25 100-25 100-25 MCG/INH MCG/INH MCG/INH Spironolact Spironolact No Spironolac one 25 MG one 25 MG tone 25 MG Potassium Potassium No Potassium Chloride Chloride Chloride Jolene ER 20 Jolene ER 20 Jolene ER 20 MEQ MEQ MEQ Acetaminoph Acetaminoph No QID Acetaminop en 500 MG en 500 MG hen 500 MG Pantoprazol Pantoprazol No Pantoprazo e Sodium 40 e Sodium 40 le Sodium MG MG 40 MG Azelastine Azelastine No Azelastine HCl 0.15 % HCl 0.15 % HCl 0.15 % Carvedilol Carvedilol No Carvedilol 3.125 MG 3.125 MG 3.125 MG Aspir-81 81 Aspir-81 81 No 1{table QD Aspir-81 MG MG t} 81 MG Victoza 18 Victoza 18 No Victoza 18 MG/3ML MG/3ML MG/3ML Vitamin C Vitamin C No 1{table QD Vitamin C 500 MG 500 MG t} 500 MG Potassium Potassium No 2{table QD Potassium Chloride 20 Chloride 20 ts_with Chloride MEQ MEQ _food} 20 MEQ Bumetanide Bumetanide No Bumetanide 1 MG 1 MG 1 MG Aspir-81 81 Aspir-81 81 No 1{table QD Aspir-81 MG MG t} 81 MG Albuterol Albuterol No 3{ml_as TID Albuterol Sulfate Sulfate _needed Sulfate (2.5 (2.5 } (2.5 MG/3ML) MG/3ML) MG/3ML) 0.083% 0.083% 0.083% Vitamin B12 Vitamin B12 No 1{table QD Vitamin 1000 MCG 1000 MCG t} B12 1000 MCG metOLazone metOLazone No 1{table QD metOLazone 2.5 MG 2.5 MG t} 2.5 MG Carvedilol Carvedilol No BID Carvedilol 3.125 MG 3.125 MG 3.125 MG Lipitor 10 Lipitor 10 No 1{table QD Lipitor 10 MG MG t} MG Bumex 1 MG Bumex 1 MG No 1{table QD Bumex 1 MG t} Fluticasone Fluticasone No QD Fluticason Propionate Propionate e 50 MCG/ACT 50 MCG/ACT Propionate 50 MCG/ACT Ventolin Ventolin No 2{puffs QID Ventolin HFA 108 (90 HFA 108 (90 _as_nee HFA 108 Base) Base) ded} (90 Base) MCG/ACT MCG/ACT MCG/ACT traMADol traMADol No traMADol HCl 50 MG HCl 50 MG HCl 50 MG Sildenafil Sildenafil No 1{table TID Sildenafil Citrate 20 Citrate 20 t} Citrate 20 MG MG MG Citalopram Citalopram No 1{table QD Citalopram Hydrobromid Hydrobromid t} Hydrobromi e 40 MG e 40 MG de 40 MG Victoza 18 Victoza 18 No QD Victoza 18 MG/3ML MG/3ML MG/3ML Pantoprazol Pantoprazol No 1{table QD Pantoprazo e Sodium 40 e Sodium 40 t} le Sodium MG MG 40 MG Potassium Potassium No 2{table QD Potassium Chloride 20 Chloride 20 ts_with Chloride MEQ MEQ _food} 20 MEQ ALPRAZolam ALPRAZolam No ALPRAZolam 0.25 MG 0.25 MG 0.25 MG Atropine Atropine No QD Atropine Sulfate 1 % Sulfate 1 % Sulfate 1 % Spiriva Spiriva No 1{capsu QD Spiriva HandiHaler HandiHaler le} HandiHaler 18 MCG 18 MCG 18 MCG Citalopram Citalopram No Citalopram Hydrobromid Hydrobromid Hydrobromi e 40 MG e 40 MG de 40 MG Breo Breo No 1{puff} QD Breo Ellipta Ellipta Ellipta 100-25 100-25 100-25 MCG/INH MCG/INH MCG/INH Spironolact Spironolact No Spironolac one 25 MG one 25 MG tone 25 MG Potassium Potassium No Potassium Chloride Chloride Chloride Jolene ER 20 Jolene ER 20 Jolene ER 20 MEQ MEQ MEQ Acetaminoph Acetaminoph No QID Acetaminop en 500 MG en 500 MG hen 500 MG Pantoprazol Pantoprazol No Pantoprazo e Sodium 40 e Sodium 40 le Sodium MG MG 40 MG Azelastine Azelastine No Azelastine HCl 0.15 % HCl 0.15 % HCl 0.15 % Vitamin B12 Vitamin B12 No 1{table QD Vitamin 1000 MCG 1000 MCG t} B12 1000 MCG Carvedilol Carvedilol No Carvedilol 3.125 MG 3.125 MG 3.125 MG Incruse Incruse No 1{puff} QD Incruse Ellipta Ellipta Ellipta 62.5 62.5 62.5 MCG/INH MCG/INH MCG/INH Fluticasone Fluticasone No QD Fluticason Propionate Propionate e 50 MCG/ACT 50 MCG/ACT Propionate 50 MCG/ACT Bumetanide Bumetanide No Bumetanide 1 MG 1 MG 1 MG Victoza 18 Victoza 18 No Victoza 18 MG/3ML MG/3ML MG/3ML Vitamin C Vitamin C No 1{table QD Vitamin C 500 MG 500 MG t} 500 MG Potassium Potassium No 2{table QD Potassium Chloride 20 Chloride 20 ts_with Chloride MEQ MEQ _food} 20 MEQ Bumetanide Bumetanide No Bumetanide 1 MG 1 MG 1 MG Aspir-81 81 Aspir-81 81 No 1{table QD Aspir-81 MG MG t} 81 MG Albuterol Albuterol No 3{ml_as TID Albuterol Sulfate Sulfate _needed Sulfate (2.5 (2.5 } (2.5 MG/3ML) MG/3ML) MG/3ML) 0.083% 0.083% 0.083% Vitamin B12 Vitamin B12 No 1{table QD Vitamin 1000 MCG 1000 MCG t} B12 1000 MCG Carvedilol Carvedilol No BID Carvedilol 3.125 MG 3.125 MG 3.125 MG Victoza 18 Victoza 18 No QD Victoza 18 MG/3ML MG/3ML MG/3ML Lipitor 10 Lipitor 10 No 1{table QD Lipitor 10 MG MG t} MG Bumex 1 MG Bumex 1 MG No 1{table QD Bumex 1 MG t} Fluticasone Fluticasone No QD Fluticason Propionate Propionate e 50 MCG/ACT 50 MCG/ACT Propionate 50 MCG/ACT Ventolin Ventolin No 2{puffs QID Ventolin HFA 108 (90 HFA 108 (90 _as_nee HFA 108 Base) Base) ded} (90 Base) MCG/ACT MCG/ACT MCG/ACT traMADol traMADol No traMADol HCl 50 MG HCl 50 MG HCl 50 MG Sildenafil Sildenafil No 1{table TID Sildenafil Citrate 20 Citrate 20 t} Citrate 20 MG MG MG Citalopram Citalopram No 1{table QD Citalopram Hydrobromid Hydrobromid t} Hydrobromi e 40 MG e 40 MG de 40 MG Victoza 18 Victoza 18 No QD Victoza 18 MG/3ML MG/3ML MG/3ML Pantoprazol Pantoprazol No 1{table QD Pantoprazo e Sodium 40 e Sodium 40 t} le Sodium MG MG 40 MG ALPRAZolam ALPRAZolam No ALPRAZolam 0.25 MG 0.25 MG 0.25 MG Breo Breo No 1{puff} QD Breo Ellipta Ellipta Ellipta 100-25 100-25 100-25 MCG/INH MCG/INH MCG/INH Atropine Atropine No QD Atropine Sulfate 1 % Sulfate 1 % Sulfate 1 % Spiriva Spiriva No 1{capsu QD Spiriva HandiHaler HandiHaler le} HandiHaler 18 MCG 18 MCG 18 MCG Citalopram Citalopram No Citalopram Hydrobromid Hydrobromid Hydrobromi e 40 MG e 40 MG de 40 MG Breo Breo No 1{puff} QD Breo Ellipta Ellipta Ellipta 100-25 100-25 100-25 MCG/INH MCG/INH MCG/INH Spironolact Spironolact No Spironolac one 25 MG one 25 MG tone 25 MG Potassium Potassium No Potassium Chloride Chloride Chloride Jolene ER 20 Jolene ER 20 Jolene ER 20 MEQ MEQ MEQ Acetaminoph Acetaminoph No QID Acetaminop en 500 MG en 500 MG hen 500 MG Pantoprazol Pantoprazol No Pantoprazo e Sodium 40 e Sodium 40 le Sodium MG MG 40 MG Azelastine Azelastine No Azelastine HCl 0.15 % HCl 0.15 % HCl 0.15 % Carvedilol Carvedilol No Carvedilol 3.125 MG 3.125 MG 3.125 MG Atropine Atropine No QD Atropine Sulfate 1 % Sulfate 1 % Sulfate 1 % Ilevro 0.3 Ilevro 0.3 No 1{drop_ QD Ilevro 0.3 % % into_af % fected_ eye} Bumex 1 MG Bumex 1 MG No BID Bumex 1 MG Albuterol Albuterol No 3{ml_as TID Albuterol Sulfate Sulfate _needed Sulfate (2.5 (2.5 } (2.5 MG/3ML) MG/3ML) MG/3ML) 0.083% 0.083% 0.083% Pantoprazol Pantoprazol No Pantoprazo e Sodium 40 e Sodium 40 le Sodium MG MG 40 MG Carvedilol Carvedilol No BID Carvedilol 3.125 MG 3.125 MG 3.125 MG Ventolin Ventolin No 2{puffs QID Ventolin HFA 108 (90 HFA 108 (90 _as_nee HFA 108 Base) Base) ded} (90 Base) MCG/ACT MCG/ACT MCG/ACT Acetaminoph Acetaminoph No QID Acetaminop en 500 MG en 500 MG hen 500 MG Jardiance Jardiance No 1{table QD Jardiance 10 MG 10 MG t} 10 MG Durezol Durezol No 1{drop_ BID Durezol 0.05 % 0.05 % into_af 0.05 % fected_ eye} Besivance Besivance No 1{drop_ TID Besivance 0.6 % 0.6 % into_af 0.6 % fected_ eye} Sildenafil Sildenafil No Sildenafil Citrate 20 Citrate 20 Citrate 20 MG MG MG traMADol traMADol No traMADol HCl 50 MG HCl 50 MG HCl 50 MG Sildenafil Sildenafil No Sildenafil Citrate 20 Citrate 20 Citrate 20 MG MG MG Ilevro 0.3 Ilevro 0.3 No 1{drop_ QD Ilevro 0.3 % % into_af % fected_ eye} Citalopram Citalopram No 1{table QD Citalopram Hydrobromid Hydrobromid t} Hydrobromi e 40 MG e 40 MG de 40 MG Ventolin Ventolin No 2{puffs QID Ventolin HFA 108 (90 HFA 108 (90 _as_nee HFA 108 Base) Base) ded} (90 Base) MCG/ACT MCG/ACT MCG/ACT Acetaminoph Acetaminoph No QID Acetaminop en 500 MG en 500 MG hen 500 MG Durezol Durezol No 1{drop_ BID Durezol 0.05 % 0.05 % into_af 0.05 % fected_ eye} metOLazone metOLazone No 1{table QD metOLazone 2.5 MG 2.5 MG t} 2.5 MG Lipitor 10 Lipitor 10 No 1{table QD Lipitor 10 MG MG t} MG Besivance Besivance No 1{drop_ TID Besivance 0.6 % 0.6 % into_af 0.6 % fected_ eye} Bumex 1 MG Bumex 1 MG No BID Bumex 1 MG Victoza 18 Victoza 18 No QD Victoza 18 MG/3ML MG/3ML MG/3ML Albuterol Albuterol No 3{ml_as TID Albuterol Sulfate Sulfate _needed Sulfate (2.5 (2.5 } (2.5 MG/3ML) MG/3ML) MG/3ML) 0.083% 0.083% 0.083% Pantoprazol Pantoprazol No Pantoprazo e Sodium 40 e Sodium 40 le Sodium MG MG 40 MG Carvedilol Carvedilol No BID Carvedilol 3.125 MG 3.125 MG 3.125 MG Potassium Potassium No 2{table QD Potassium Chloride 20 Chloride 20 ts_with Chloride MEQ MEQ _food} 20 MEQ traMADol traMADol No traMADol HCl 50 MG HCl 50 MG HCl 50 MG Breo Breo No 1{puff} QD Breo Ellipta Ellipta Ellipta 100-25 100-25 100-25 MCG/INH MCG/INH MCG/INH Vitamin B12 Vitamin B12 No 1{table QD Vitamin 1000 MCG 1000 MCG t} B12 1000 MCG Jardiance Jardiance No 1{table QD Jardiance 10 MG 10 MG t} 10 MG Fluticasone Fluticasone No QD Fluticason Propionate Propionate e 50 MCG/ACT 50 MCG/ACT Propionate 50 MCG/ACT Incruse Incruse No 1{puff} QD Incruse Ellipta Ellipta Ellipta 62.5 62.5 62.5 MCG/INH MCG/INH MCG/INH Vitamin C Vitamin C No 1{table QD Vitamin C 500 MG 500 MG t} 500 MG Aspir-81 81 Aspir-81 81 No 1{table QD Aspir-81 MG MG t} 81 MG ALPRAZolam ALPRAZolam No ALPRAZolam 0.25 MG 0.25 MG 0.25 MG Spironolact Spironolact No Spironolac one 25 MG one 25 MG tone 25 MG metOLazone metOLazone No metOLazone 2.5 MG 2.5 MG 2.5 MG Atropine Atropine No QD Atropine Sulfate 1 % Sulfate 1 % Sulfate 1 % Jardiance Jardiance No Jardiance 10 MG 10 MG 10 MG Bumetanide Bumetanide No Bumetanide 1 MG 1 MG 1 MG Spiriva Spiriva No 1{capsu QD Spiriva HandiHaler HandiHaler le} HandiHaler 18 MCG 18 MCG 18 MCG Sildenafil Sildenafil No Sildenafil Citrate 20 Citrate 20 Citrate 20 MG MG MG Ilevro 0.3 Ilevro 0.3 No 1{drop_ QD Ilevro 0.3 % % into_af % fected_ eye} Citalopram Citalopram No 1{table QD Citalopram Hydrobromid Hydrobromid t} Hydrobromi e 40 MG e 40 MG de 40 MG Ventolin Ventolin No 2{puffs QID Ventolin HFA 108 (90 HFA 108 (90 _as_nee HFA 108 Base) Base) ded} (90 Base) MCG/ACT MCG/ACT MCG/ACT Acetaminoph Acetaminoph No QID Acetaminop en 500 MG en 500 MG hen 500 MG Durezol Durezol No 1{drop_ BID Durezol 0.05 % 0.05 % into_af 0.05 % fected_ eye} metOLazone metOLazone No 1{table QD metOLazone 2.5 MG 2.5 MG t} 2.5 MG Lipitor 10 Lipitor 10 No 1{table QD Lipitor 10 MG MG t} MG Besivance Besivance No 1{drop_ TID Besivance 0.6 % 0.6 % into_af 0.6 % fected_ eye} Bumex 1 MG Bumex 1 MG No BID Bumex 1 MG Victoza 18 Victoza 18 No QD Victoza 18 MG/3ML MG/3ML MG/3ML Albuterol Albuterol No 3{ml_as TID Albuterol Sulfate Sulfate _needed Sulfate (2.5 (2.5 } (2.5 MG/3ML) MG/3ML) MG/3ML) 0.083% 0.083% 0.083% Pantoprazol Pantoprazol No Pantoprazo e Sodium 40 e Sodium 40 le Sodium MG MG 40 MG Carvedilol Carvedilol No BID Carvedilol 3.125 MG 3.125 MG 3.125 MG Potassium Potassium No 2{table QD Potassium Chloride 20 Chloride 20 ts_with Chloride MEQ MEQ _food} 20 MEQ traMADol traMADol No traMADol HCl 50 MG HCl 50 MG HCl 50 MG Breo Breo No 1{puff} QD Breo Ellipta Ellipta Ellipta 100-25 100-25 100-25 MCG/INH MCG/INH MCG/INH Vitamin B12 Vitamin B12 No 1{table QD Vitamin 1000 MCG 1000 MCG t} B12 1000 MCG Jardiance Jardiance No 1{table QD Jardiance 10 MG 10 MG t} 10 MG Fluticasone Fluticasone No QD Fluticason Propionate Propionate e 50 MCG/ACT 50 MCG/ACT Propionate 50 MCG/ACT Incruse Incruse No 1{puff} QD Incruse Ellipta Ellipta Ellipta 62.5 62.5 62.5 MCG/INH MCG/INH MCG/INH Vitamin C Vitamin C No 1{table QD Vitamin C 500 MG 500 MG t} 500 MG Aspir-81 81 Aspir-81 81 No 1{table QD Aspir-81 MG MG t} 81 MG ALPRAZolam ALPRAZolam No ALPRAZolam 0.25 MG 0.25 MG 0.25 MG Spironolact Spironolact No Spironolac one 25 MG one 25 MG tone 25 MG metOLazone metOLazone No metOLazone 2.5 MG 2.5 MG 2.5 MG Atropine Atropine No QD Atropine Sulfate 1 % Sulfate 1 % Sulfate 1 % Jardiance Jardiance No Jardiance 10 MG 10 MG 10 MG Bumetanide Bumetanide No Bumetanide 1 MG 1 MG 1 MG Spiriva Spiriva No 1{capsu QD Spiriva HandiHaler HandiHaler le} HandiHaler 18 MCG 18 MCG 18 MCG Breo Breo No 1{puff} QD Breo Ellipta Ellipta Ellipta 100-25 100-25 100-25 MCG/INH MCG/INH MCG/INH metOLazone metOLazone No 1{table QD metOLazone 2.5 MG 2.5 MG t} 2.5 MG Vitamin C Vitamin C No 1{table QD Vitamin C 500 MG 500 MG t} 500 MG Ventolin Ventolin No 2{puffs QID Ventolin HFA 108 (90 HFA 108 (90 _as_nee HFA 108 Base) Base) ded} (90 Base) MCG/ACT MCG/ACT MCG/ACT Incruse Incruse No 1{puff} QD Incruse Ellipta Ellipta Ellipta 62.5 62.5 62.5 MCG/INH MCG/INH MCG/INH Albuterol Albuterol No 3{ml_as TID Albuterol Sulfate Sulfate _needed Sulfate (2.5 (2.5 } (2.5 MG/3ML) MG/3ML) MG/3ML) 0.083% 0.083% 0.083% traMADol traMADol No traMADol HCl 50 MG HCl 50 MG HCl 50 MG Citalopram Citalopram No 1{table QD Citalopram Hydrobromid Hydrobromid t} Hydrobromi e 40 MG e 40 MG de 40 MG Sildenafil Sildenafil No 1{table TID Sildenafil Citrate 20 Citrate 20 t} Citrate 20 MG MG MG Ilevro 0.3 Ilevro 0.3 No 1{drop_ QD Ilevro 0.3 % % into_af % fected_ eye} Pantoprazol Pantoprazol No 1{table QD Pantoprazo e Sodium 40 e Sodium 40 t} le Sodium MG MG 40 MG Sildenafil Sildenafil No Sildenafil Citrate 20 Citrate 20 Citrate 20 MG MG MG Durezol Durezol No 1{drop_ BID Durezol 0.05 % 0.05 % into_af 0.05 % fected_ eye} ALPRAZolam ALPRAZolam No ALPRAZolam 0.25 MG 0.25 MG 0.25 MG Vitamin B12 Vitamin B12 No 1{table QD Vitamin 1000 MCG 1000 MCG t} B12 1000 MCG Aspir-81 81 Aspir-81 81 No 1{table QD Aspir-81 MG MG t} 81 MG Carvedilol Carvedilol No BID Carvedilol 3.125 MG 3.125 MG 3.125 MG Pantoprazol Pantoprazol No Pantoprazo e Sodium 40 e Sodium 40 le Sodium MG MG 40 MG Fluticasone Fluticasone No QD Fluticason Propionate Propionate e 50 MCG/ACT 50 MCG/ACT Propionate 50 MCG/ACT metOLazone metOLazone No metOLazone 2.5 MG 2.5 MG 2.5 MG Spironolact Spironolact No Spironolac one 25 MG one 25 MG tone 25 MG Acetaminoph Acetaminoph No QID Acetaminop en 500 MG en 500 MG hen 500 MG Bumex 1 MG Bumex 1 MG No BID Bumex 1 MG Besivance Besivance No 1{drop_ TID Besivance 0.6 % 0.6 % into_af 0.6 % fected_ eye} Jardiance Jardiance No Jardiance 10 MG 10 MG 10 MG Jardiance Jardiance No 1{table QD Jardiance 10 MG 10 MG t} 10 MG Potassium Potassium No 2{table QD Potassium Chloride 20 Chloride 20 ts_with Chloride MEQ MEQ _food} 20 MEQ Atropine Atropine No QD Atropine Sulfate 1 % Sulfate 1 % Sulfate 1 % Bumetanide Bumetanide No Bumetanide 1 MG 1 MG 1 MG Lipitor 10 Lipitor 10 No 1{table QD Lipitor 10 MG MG t} MG Victoza 18 Victoza 18 No QD Victoza 18 MG/3ML MG/3ML MG/3ML Spiriva Spiriva No 1{capsu QD Spiriva HandiHaler HandiHaler le} HandiHaler 18 MCG 18 MCG 18 MCG Breo Breo No 1{puff} QD Breo Ellipta Ellipta Ellipta 100-25 100-25 100-25 MCG/INH MCG/INH MCG/INH metOLazone metOLazone No 1{table QD metOLazone 2.5 MG 2.5 MG t} 2.5 MG Vitamin C Vitamin C No 1{table QD Vitamin C 500 MG 500 MG t} 500 MG Ventolin Ventolin No 2{puffs QID Ventolin HFA 108 (90 HFA 108 (90 _as_nee HFA 108 Base) Base) ded} (90 Base) MCG/ACT MCG/ACT MCG/ACT Incruse Incruse No 1{puff} QD Incruse Ellipta Ellipta Ellipta 62.5 62.5 62.5 MCG/INH MCG/INH MCG/INH Albuterol Albuterol No 3{ml_as TID Albuterol Sulfate Sulfate _needed Sulfate (2.5 (2.5 } (2.5 MG/3ML) MG/3ML) MG/3ML) 0.083% 0.083% 0.083% traMADol traMADol No traMADol HCl 50 MG HCl 50 MG HCl 50 MG Citalopram Citalopram No 1{table QD Citalopram Hydrobromid Hydrobromid t} Hydrobromi e 40 MG e 40 MG de 40 MG Sildenafil Sildenafil No 1{table TID Sildenafil Citrate 20 Citrate 20 t} Citrate 20 MG MG MG Ilevro 0.3 Ilevro 0.3 No 1{drop_ QD Ilevro 0.3 % % into_af % fected_ eye} Pantoprazol Pantoprazol No 1{table QD Pantoprazo e Sodium 40 e Sodium 40 t} le Sodium MG MG 40 MG Sildenafil Sildenafil No Sildenafil Citrate 20 Citrate 20 Citrate 20 MG MG MG Durezol Durezol No 1{drop_ BID Durezol 0.05 % 0.05 % into_af 0.05 % fected_ eye} ALPRAZolam ALPRAZolam No ALPRAZolam 0.25 MG 0.25 MG 0.25 MG Vitamin B12 Vitamin B12 No 1{table QD Vitamin 1000 MCG 1000 MCG t} B12 1000 MCG Aspir-81 81 Aspir-81 81 No 1{table QD Aspir-81 MG MG t} 81 MG Carvedilol Carvedilol No BID Carvedilol 3.125 MG 3.125 MG 3.125 MG Pantoprazol Pantoprazol No Pantoprazo e Sodium 40 e Sodium 40 le Sodium MG MG 40 MG Fluticasone Fluticasone No QD Fluticason Propionate Propionate e 50 MCG/ACT 50 MCG/ACT Propionate 50 MCG/ACT metOLazone metOLazone No metOLazone 2.5 MG 2.5 MG 2.5 MG Spironolact Spironolact No Spironolac one 25 MG one 25 MG tone 25 MG Acetaminoph Acetaminoph No QID Acetaminop en 500 MG en 500 MG hen 500 MG Bumex 1 MG Bumex 1 MG No BID Bumex 1 MG Besivance Besivance No 1{drop_ TID Besivance 0.6 % 0.6 % into_af 0.6 % fected_ eye} Jardiance Jardiance No Jardiance 10 MG 10 MG 10 MG Jardiance Jardiance No 1{table QD Jardiance 10 MG 10 MG t} 10 MG Potassium Potassium No 2{table QD Potassium Chloride 20 Chloride 20 ts_with Chloride MEQ MEQ _food} 20 MEQ Atropine Atropine No QD Atropine Sulfate 1 % Sulfate 1 % Sulfate 1 % Bumetanide Bumetanide No Bumetanide 1 MG 1 MG 1 MG Lipitor 10 Lipitor 10 No 1{table QD Lipitor 10 MG MG t} MG Victoza 18 Victoza 18 No QD Victoza 18 MG/3ML MG/3ML MG/3ML Spiriva Spiriva No 1{capsu QD Spiriva HandiHaler HandiHaler le} HandiHaler 18 MCG 18 MCG 18 MCG Albuterol Albuterol No 3{ml_as TID Albuterol Sulfate Sulfate _needed Sulfate (2.5 (2.5 } (2.5 MG/3ML) MG/3ML) MG/3ML) 0.083% 0.083% 0.083% Atropine Atropine No QD Atropine Sulfate 1 % Sulfate 1 % Sulfate 1 % Sildenafil Sildenafil No 1{table TID Sildenafil Citrate 20 Citrate 20 t} Citrate 20 MG MG MG Acetaminoph Acetaminoph No QID Acetaminop en 500 MG en 500 MG hen 500 MG Durezol Durezol No 1{drop_ BID Durezol 0.05 % 0.05 % into_af 0.05 % fected_ eye} traMADol traMADol No traMADol HCl 50 MG HCl 50 MG HCl 50 MG Bumetanide Bumetanide No Bumetanide 1 MG 1 MG 1 MG Potassium Potassium No 2{table QD Potassium Chloride 20 Chloride 20 ts_with Chloride MEQ MEQ _food} 20 MEQ Sildenafil Sildenafil No Sildenafil Citrate 20 Citrate 20 Citrate 20 MG MG MG Ilevro 0.3 Ilevro 0.3 No 1{drop_ QD Ilevro 0.3 % % into_af % fected_ eye} Besivance Besivance No 1{drop_ TID Besivance 0.6 % 0.6 % into_af 0.6 % fected_ eye} Incruse Incruse No 1{puff} QD Incruse Ellipta Ellipta Ellipta 62.5 62.5 62.5 MCG/INH MCG/INH MCG/INH metOLazone metOLazone No metOLazone 2.5 MG 2.5 MG 2.5 MG Vitamin B12 Vitamin B12 No 1{table QD Vitamin 1000 MCG 1000 MCG t} B12 1000 MCG Breo Breo No 1{puff} QD Breo Ellipta Ellipta Ellipta 100-25 100-25 100-25 MCG/INH MCG/INH MCG/INH Citalopram Citalopram No 1{table QD Citalopram Hydrobromid Hydrobromid t} Hydrobromi e 40 MG e 40 MG de 40 MG Lipitor 10 Lipitor 10 No 1{table QD Lipitor 10 MG MG t} MG Spironolact Spironolact No Spironolac one 25 MG one 25 MG tone 25 MG Fluticasone Fluticasone No QD Fluticason Propionate Propionate e 50 MCG/ACT 50 MCG/ACT Propionate 50 MCG/ACT Bumex 1 MG Bumex 1 MG No BID Bumex 1 MG Ventolin Ventolin No 2{puffs QID Ventolin HFA 108 (90 HFA 108 (90 _as_nee HFA 108 Base) Base) ded} (90 Base) MCG/ACT MCG/ACT MCG/ACT Spiriva Spiriva No 1{capsu QD Spiriva HandiHaler HandiHaler le} HandiHaler 18 MCG 18 MCG 18 MCG Jardiance Jardiance No Jardiance 10 MG 10 MG 10 MG Aspir-81 81 Aspir-81 81 No 1{table QD Aspir-81 MG MG t} 81 MG metOLazone metOLazone No 1{table QD metOLazone 2.5 MG 2.5 MG t} 2.5 MG Vitamin C Vitamin C No 1{table QD Vitamin C 500 MG 500 MG t} 500 MG Pantoprazol Pantoprazol No 1{table QD Pantoprazo e Sodium 40 e Sodium 40 t} le Sodium MG MG 40 MG Carvedilol Carvedilol No BID Carvedilol 3.125 MG 3.125 MG 3.125 MG ALPRAZolam ALPRAZolam No ALPRAZolam 0.25 MG 0.25 MG 0.25 MG Victoza 18 Victoza 18 No QD Victoza 18 MG/3ML MG/3ML MG/3ML Jardiance Jardiance No 1{table QD Jardiance 10 MG 10 MG t} 10 MG Pantoprazol Pantoprazol No Pantoprazo e Sodium 40 e Sodium 40 le Sodium MG MG 40 MG Albuterol Albuterol No 3{ml_as TID Albuterol Sulfate Sulfate _needed Sulfate (2.5 (2.5 } (2.5 MG/3ML) MG/3ML) MG/3ML) 0.083% 0.083% 0.083% Atropine Atropine No QD Atropine Sulfate 1 % Sulfate 1 % Sulfate 1 % Sildenafil Sildenafil No 1{table TID Sildenafil Citrate 20 Citrate 20 t} Citrate 20 MG MG MG Acetaminoph Acetaminoph No QID Acetaminop en 500 MG en 500 MG hen 500 MG Durezol Durezol No 1{drop_ BID Durezol 0.05 % 0.05 % into_af 0.05 % fected_ eye} traMADol traMADol No traMADol HCl 50 MG HCl 50 MG HCl 50 MG Bumetanide Bumetanide No Bumetanide 1 MG 1 MG 1 MG Potassium Potassium No 2{table QD Potassium Chloride 20 Chloride 20 ts_with Chloride MEQ MEQ _food} 20 MEQ Sildenafil Sildenafil No Sildenafil Citrate 20 Citrate 20 Citrate 20 MG MG MG Ilevro 0.3 Ilevro 0.3 No 1{drop_ QD Ilevro 0.3 % % into_af % fected_ eye} Besivance Besivance No 1{drop_ TID Besivance 0.6 % 0.6 % into_af 0.6 % fected_ eye} Incruse Incruse No 1{puff} QD Incruse Ellipta Ellipta Ellipta 62.5 62.5 62.5 MCG/INH MCG/INH MCG/INH metOLazone metOLazone No metOLazone 2.5 MG 2.5 MG 2.5 MG Vitamin B12 Vitamin B12 No 1{table QD Vitamin 1000 MCG 1000 MCG t} B12 1000 MCG Breo Breo No 1{puff} QD Breo Ellipta Ellipta Ellipta 100-25 100-25 100-25 MCG/INH MCG/INH MCG/INH Citalopram Citalopram No 1{table QD Citalopram Hydrobromid Hydrobromid t} Hydrobromi e 40 MG e 40 MG de 40 MG Lipitor 10 Lipitor 10 No 1{table QD Lipitor 10 MG MG t} MG Spironolact Spironolact No Spironolac one 25 MG one 25 MG tone 25 MG Fluticasone Fluticasone No QD Fluticason Propionate Propionate e 50 MCG/ACT 50 MCG/ACT Propionate 50 MCG/ACT Bumex 1 MG Bumex 1 MG No BID Bumex 1 MG Ventolin Ventolin No 2{puffs QID Ventolin HFA 108 (90 HFA 108 (90 _as_nee HFA 108 Base) Base) ded} (90 Base) MCG/ACT MCG/ACT MCG/ACT Spiriva Spiriva No 1{capsu QD Spiriva HandiHaler HandiHaler le} HandiHaler 18 MCG 18 MCG 18 MCG Jardiance Jardiance No Jardiance 10 MG 10 MG 10 MG Aspir-81 81 Aspir-81 81 No 1{table QD Aspir-81 MG MG t} 81 MG metOLazone metOLazone No 1{table QD metOLazone 2.5 MG 2.5 MG t} 2.5 MG Vitamin C Vitamin C No 1{table QD Vitamin C 500 MG 500 MG t} 500 MG Pantoprazol Pantoprazol No 1{table QD Pantoprazo e Sodium 40 e Sodium 40 t} le Sodium MG MG 40 MG Carvedilol Carvedilol No BID Carvedilol 3.125 MG 3.125 MG 3.125 MG ALPRAZolam ALPRAZolam No ALPRAZolam 0.25 MG 0.25 MG 0.25 MG Victoza 18 Victoza 18 No QD Victoza 18 MG/3ML MG/3ML MG/3ML Jardiance Jardiance No 1{table QD Jardiance 10 MG 10 MG t} 10 MG Pantoprazol Pantoprazol No Pantoprazo e Sodium 40 e Sodium 40 le Sodium MG MG 40 MG Sildenafil Sildenafil No Sildenafil Citrate 20 Citrate 20 Citrate 20 MG MG MG Ilevro 0.3 Ilevro 0.3 No 1{drop_ QD Ilevro 0.3 % % into_af % fected_ eye} Sildenafil Sildenafil No 1{table TID Sildenafil Citrate 20 Citrate 20 t} Citrate 20 MG MG MG Albuterol Albuterol No 3{ml_as TID Albuterol Sulfate Sulfate _needed Sulfate (2.5 (2.5 } (2.5 MG/3ML) MG/3ML) MG/3ML) 0.083% 0.083% 0.083% Atropine Atropine No QD Atropine Sulfate 1 % Sulfate 1 % Sulfate 1 % traMADol traMADol No traMADol HCl 50 MG HCl 50 MG HCl 50 MG Incruse Incruse No 1{puff} QD Incruse Ellipta Ellipta Ellipta 62.5 62.5 62.5 MCG/INH MCG/INH MCG/INH metOLazone metOLazone No metOLazone 2.5 MG 2.5 MG 2.5 MG Bumetanide Bumetanide No Bumetanide 1 MG 1 MG 1 MG Potassium Potassium No 2{table QD Potassium Chloride 20 Chloride 20 ts_with Chloride MEQ MEQ _food} 20 MEQ Vitamin B12 Vitamin B12 No 1{table QD Vitamin 1000 MCG 1000 MCG t} B12 1000 MCG Spiriva Spiriva No 1{capsu QD Spiriva HandiHaler HandiHaler le} HandiHaler 18 MCG 18 MCG 18 MCG Besivance Besivance No 1{drop_ TID Besivance 0.6 % 0.6 % into_af 0.6 % fected_ eye} Aspir-81 81 Aspir-81 81 No 1{table QD Aspir-81 MG MG t} 81 MG Ventolin Ventolin No 2{puffs QID Ventolin HFA 108 (90 HFA 108 (90 _as_nee HFA 108 Base) Base) ded} (90 Base) MCG/ACT MCG/ACT MCG/ACT Breo Breo No 1{puff} QD Breo Ellipta Ellipta Ellipta 100-25 100-25 100-25 MCG/INH MCG/INH MCG/INH metOLazone metOLazone No 1{table QD metOLazone 2.5 MG 2.5 MG t} 2.5 MG Vitamin C Vitamin C No 1{table QD Vitamin C 500 MG 500 MG t} 500 MG Jardiance Jardiance No Jardiance 10 MG 10 MG 10 MG Pantoprazol Pantoprazol No 1{table QD Pantoprazo e Sodium 40 e Sodium 40 t} le Sodium MG MG 40 MG Spironolact Spironolact No Spironolac one 25 MG one 25 MG tone 25 MG Fluticasone Fluticasone No QD Fluticason Propionate Propionate e 50 MCG/ACT 50 MCG/ACT Propionate 50 MCG/ACT Durezol Durezol No 1{drop_ BID Durezol 0.05 % 0.05 % into_af 0.05 % fected_ eye} Victoza 18 Victoza 18 No Victoza 18 MG/3ML MG/3ML MG/3ML Bumex 1 MG Bumex 1 MG No BID Bumex 1 MG Acetaminoph Acetaminoph No QID Acetaminop en 500 MG en 500 MG hen 500 MG Citalopram Citalopram No 1{table QD Citalopram Hydrobromid Hydrobromid t} Hydrobromi e 40 MG e 40 MG de 40 MG Lipitor 10 Lipitor 10 No 1{table QD Lipitor 10 MG MG t} MG ALPRAZolam ALPRAZolam No ALPRAZolam 0.25 MG 0.25 MG 0.25 MG Carvedilol Carvedilol No BID Carvedilol 3.125 MG 3.125 MG 3.125 MG Jardiance Jardiance No 1{table QD Jardiance 10 MG 10 MG t} 10 MG Pantoprazol Pantoprazol No Pantoprazo e Sodium 40 e Sodium 40 le Sodium MG MG 40 MG Bumetanide Bumetanide No Bumetanide 1 MG 1 MG 1 MG Potassium Potassium No 2{table QD Potassium Chloride 20 Chloride 20 ts_with Chloride MEQ MEQ _food} 20 MEQ Sildenafil Sildenafil No Sildenafil Citrate 20 Citrate 20 Citrate 20 MG MG MG Ilevro 0.3 Ilevro 0.3 No 1{drop_ QD Ilevro 0.3 % % into_af % fected_ eye} Sildenafil Sildenafil No 1{table TID Sildenafil Citrate 20 Citrate 20 t} Citrate 20 MG MG MG Spiriva Spiriva No 1{capsu QD Spiriva HandiHaler HandiHaler le} HandiHaler 18 MCG 18 MCG 18 MCG Besivance Besivance No 1{drop_ TID Besivance 0.6 % 0.6 % into_af 0.6 % fected_ eye} Incruse Incruse No 1{puff} QD Incruse Ellipta Ellipta Ellipta 62.5 62.5 62.5 MCG/INH MCG/INH MCG/INH metOLazone metOLazone No metOLazone 2.5 MG 2.5 MG 2.5 MG Aspir-81 81 Aspir-81 81 No 1{table QD Aspir-81 MG MG t} 81 MG Fluticasone Fluticasone No QD Fluticason Propionate Propionate e 50 MCG/ACT 50 MCG/ACT Propionate 50 MCG/ACT Vitamin B12 Vitamin B12 No 1{table QD Vitamin 1000 MCG 1000 MCG t} B12 1000 MCG Victoza 18 Victoza 18 No Victoza 18 MG/3ML MG/3ML MG/3ML Spironolact Spironolact No Spironolac one 25 MG one 25 MG tone 25 MG Ventolin Ventolin No 2{puffs QID Ventolin HFA 108 (90 HFA 108 (90 _as_nee HFA 108 Base) Base) ded} (90 Base) MCG/ACT MCG/ACT MCG/ACT metOLazone metOLazone No 1{table QD metOLazone 2.5 MG 2.5 MG t} 2.5 MG Acetaminoph Acetaminoph No QID Acetaminop en 500 MG en 500 MG hen 500 MG Durezol Durezol No 1{drop_ BID Durezol 0.05 % 0.05 % into_af 0.05 % fected_ eye} Citalopram Citalopram No 1{table QD Citalopram Hydrobromid Hydrobromid t} Hydrobromi e 40 MG e 40 MG de 40 MG Vitamin C Vitamin C No 1{table QD Vitamin C 500 MG 500 MG t} 500 MG Jardiance Jardiance No Jardiance 10 MG 10 MG 10 MG Atropine Atropine No QD Atropine Sulfate 1 % Sulfate 1 % Sulfate 1 % traMADol traMADol No traMADol HCl 50 MG HCl 50 MG HCl 50 MG Bumex 1 MG Bumex 1 MG No BID Bumex 1 MG Albuterol Albuterol No 3{ml_as TID Albuterol Sulfate Sulfate _needed Sulfate (2.5 (2.5 } (2.5 MG/3ML) MG/3ML) MG/3ML) 0.083% 0.083% 0.083% Breo Breo No 1{puff} QD Breo Ellipta Ellipta Ellipta 100-25 100-25 100-25 MCG/INH MCG/INH MCG/INH Lipitor 10 Lipitor 10 No 1{table QD Lipitor 10 MG MG t} MG ALPRAZolam ALPRAZolam No ALPRAZolam 0.25 MG 0.25 MG 0.25 MG Carvedilol Carvedilol No BID Carvedilol 3.125 MG 3.125 MG 3.125 MG Jardiance Jardiance No 1{table QD Jardiance 10 MG 10 MG t} 10 MG Pantoprazol Pantoprazol No Pantoprazo e Sodium 40 e Sodium 40 le Sodium MG MG 40 MG Bumetanide Bumetanide No Bumetanide 1 MG 1 MG 1 MG Potassium Potassium No 2{table QD Potassium Chloride 20 Chloride 20 ts_with Chloride MEQ MEQ _food} 20 MEQ Sildenafil Sildenafil No Sildenafil Citrate 20 Citrate 20 Citrate 20 MG MG MG Ilevro 0.3 Ilevro 0.3 No 1{drop_ QD Ilevro 0.3 % % into_af % fected_ eye} Sildenafil Sildenafil No 1{table TID Sildenafil Citrate 20 Citrate 20 t} Citrate 20 MG MG MG Spiriva Spiriva No 1{capsu QD Spiriva HandiHaler HandiHaler le} HandiHaler 18 MCG 18 MCG 18 MCG Besivance Besivance No 1{drop_ TID Besivance 0.6 % 0.6 % into_af 0.6 % fected_ eye} Incruse Incruse No 1{puff} QD Incruse Ellipta Ellipta Ellipta 62.5 62.5 62.5 MCG/INH MCG/INH MCG/INH metOLazone metOLazone No metOLazone 2.5 MG 2.5 MG 2.5 MG Aspir-81 81 Aspir-81 81 No 1{table QD Aspir-81 MG MG t} 81 MG Fluticasone Fluticasone No QD Fluticason Propionate Propionate e 50 MCG/ACT 50 MCG/ACT Propionate 50 MCG/ACT Vitamin B12 Vitamin B12 No 1{table QD Vitamin 1000 MCG 1000 MCG t} B12 1000 MCG Victoza 18 Victoza 18 No Victoza 18 MG/3ML MG/3ML MG/3ML Spironolact Spironolact No Spironolac one 25 MG one 25 MG tone 25 MG Ventolin Ventolin No 2{puffs QID Ventolin HFA 108 (90 HFA 108 (90 _as_nee HFA 108 Base) Base) ded} (90 Base) MCG/ACT MCG/ACT MCG/ACT metOLazone metOLazone No 1{table QD metOLazone 2.5 MG 2.5 MG t} 2.5 MG Acetaminoph Acetaminoph No QID Acetaminop en 500 MG en 500 MG hen 500 MG Durezol Durezol No 1{drop_ BID Durezol 0.05 % 0.05 % into_af 0.05 % fected_ eye} Citalopram Citalopram No 1{table QD Citalopram Hydrobromid Hydrobromid t} Hydrobromi e 40 MG e 40 MG de 40 MG Vitamin C Vitamin C No 1{table QD Vitamin C 500 MG 500 MG t} 500 MG Jardiance Jardiance No Jardiance 10 MG 10 MG 10 MG Atropine Atropine No QD Atropine Sulfate 1 % Sulfate 1 % Sulfate 1 % traMADol traMADol No traMADol HCl 50 MG HCl 50 MG HCl 50 MG Bumex 1 MG Bumex 1 MG No BID Bumex 1 MG Albuterol Albuterol No 3{ml_as TID Albuterol Sulfate Sulfate _needed Sulfate (2.5 (2.5 } (2.5 MG/3ML) MG/3ML) MG/3ML) 0.083% 0.083% 0.083% Breo Breo No 1{puff} QD Breo Ellipta Ellipta Ellipta 100-25 100-25 100-25 MCG/INH MCG/INH MCG/INH Lipitor 10 Lipitor 10 No 1{table QD Lipitor 10 MG MG t} MG ALPRAZolam ALPRAZolam No ALPRAZolam 0.25 MG 0.25 MG 0.25 MG Carvedilol Carvedilol No BID Carvedilol 3.125 MG 3.125 MG 3.125 MG Jardiance Jardiance No 1{table QD Jardiance 10 MG 10 MG t} 10 MG Pantoprazol Pantoprazol No Pantoprazo e Sodium 40 e Sodium 40 le Sodium MG MG 40 MG Bumetanide Bumetanide No Bumetanide 1 MG 1 MG 1 MG Potassium Potassium No 2{table QD Potassium Chloride 20 Chloride 20 ts_with Chloride MEQ MEQ _food} 20 MEQ Sildenafil Sildenafil No Sildenafil Citrate 20 Citrate 20 Citrate 20 MG MG MG Ilevro 0.3 Ilevro 0.3 No 1{drop_ QD Ilevro 0.3 % % into_af % fected_ eye} Sildenafil Sildenafil No 1{table TID Sildenafil Citrate 20 Citrate 20 t} Citrate 20 MG MG MG Spiriva Spiriva No 1{capsu QD Spiriva HandiHaler HandiHaler le} HandiHaler 18 MCG 18 MCG 18 MCG Besivance Besivance No 1{drop_ TID Besivance 0.6 % 0.6 % into_af 0.6 % fected_ eye} Incruse Incruse No 1{puff} QD Incruse Ellipta Ellipta Ellipta 62.5 62.5 62.5 MCG/INH MCG/INH MCG/INH metOLazone metOLazone No metOLazone 2.5 MG 2.5 MG 2.5 MG Aspir-81 81 Aspir-81 81 No 1{table QD Aspir-81 MG MG t} 81 MG Fluticasone Fluticasone No QD Fluticason Propionate Propionate e 50 MCG/ACT 50 MCG/ACT Propionate 50 MCG/ACT Vitamin B12 Vitamin B12 No 1{table QD Vitamin 1000 MCG 1000 MCG t} B12 1000 MCG Victoza 18 Victoza 18 No Victoza 18 MG/3ML MG/3ML MG/3ML Spironolact Spironolact No Spironolac one 25 MG one 25 MG tone 25 MG Ventolin Ventolin No 2{puffs QID Ventolin HFA 108 (90 HFA 108 (90 _as_nee HFA 108 Base) Base) ded} (90 Base) MCG/ACT MCG/ACT MCG/ACT metOLazone metOLazone No 1{table QD metOLazone 2.5 MG 2.5 MG t} 2.5 MG Acetaminoph Acetaminoph No QID Acetaminop en 500 MG en 500 MG hen 500 MG Durezol Durezol No 1{drop_ BID Durezol 0.05 % 0.05 % into_af 0.05 % fected_ eye} Citalopram Citalopram No 1{table QD Citalopram Hydrobromid Hydrobromid t} Hydrobromi e 40 MG e 40 MG de 40 MG Vitamin C Vitamin C No 1{table QD Vitamin C 500 MG 500 MG t} 500 MG Jardiance Jardiance No Jardiance 10 MG 10 MG 10 MG Atropine Atropine No QD Atropine Sulfate 1 % Sulfate 1 % Sulfate 1 % traMADol traMADol No traMADol HCl 50 MG HCl 50 MG HCl 50 MG Bumex 1 MG Bumex 1 MG No BID Bumex 1 MG Albuterol Albuterol No 3{ml_as TID Albuterol Sulfate Sulfate _needed Sulfate (2.5 (2.5 } (2.5 MG/3ML) MG/3ML) MG/3ML) 0.083% 0.083% 0.083% Breo Breo No 1{puff} QD Breo Ellipta Ellipta Ellipta 100-25 100-25 100-25 MCG/INH MCG/INH MCG/INH Lipitor 10 Lipitor 10 No 1{table QD Lipitor 10 MG MG t} MG ALPRAZolam ALPRAZolam No ALPRAZolam 0.25 MG 0.25 MG 0.25 MG Carvedilol Carvedilol No BID Carvedilol 3.125 MG 3.125 MG 3.125 MG Jardiance Jardiance No 1{table QD Jardiance 10 MG 10 MG t} 10 MG Pantoprazol Pantoprazol No Pantoprazo e Sodium 40 e Sodium 40 le Sodium MG MG 40 MG Incruse Incruse No 1{puff} QD Incruse Ellipta Ellipta Ellipta 62.5 62.5 62.5 MCG/INH MCG/INH MCG/INH Pantoprazol Pantoprazol No Pantoprazo e Sodium 40 e Sodium 40 le Sodium MG MG 40 MG traMADol traMADol No traMADol HCl 50 MG HCl 50 MG HCl 50 MG Acetaminoph Acetaminoph No QID Acetaminop en 500 MG en 500 MG hen 500 MG Victoza 18 Victoza 18 No Victoza 18 MG/3ML MG/3ML MG/3ML Ventolin Ventolin No 2{puffs QID Ventolin HFA 108 (90 HFA 108 (90 _as_nee HFA 108 Base) Base) ded} (90 Base) MCG/ACT MCG/ACT MCG/ACT Vitamin B12 Vitamin B12 No 1{table QD Vitamin 1000 MCG 1000 MCG t} B12 1000 MCG Ilevro 0.3 Ilevro 0.3 No 1{drop_ QD Ilevro 0.3 % % into_af % fected_ eye} Sildenafil Sildenafil No Sildenafil Citrate 20 Citrate 20 Citrate 20 MG MG MG Spironolact Spironolact No Spironolac one 25 MG one 25 MG tone 25 MG Breo Breo No 1{puff} QD Breo Ellipta Ellipta Ellipta 100-25 100-25 100-25 MCG/INH MCG/INH MCG/INH Victoza 18 Victoza 18 No QD Victoza 18 MG/3ML MG/3ML MG/3ML Lipitor 10 Lipitor 10 No 1{table QD Lipitor 10 MG MG t} MG Citalopram Citalopram No 1{table QD Citalopram Hydrobromid Hydrobromid t} Hydrobromi e 40 MG e 40 MG de 40 MG Bumex 1 MG Bumex 1 MG No BID Bumex 1 MG Durezol Durezol No 1{drop_ BID Durezol 0.05 % 0.05 % into_af 0.05 % fected_ eye} Sildenafil Sildenafil No 1{table TID Sildenafil Citrate 20 Citrate 20 t} Citrate 20 MG MG MG Budesonide Budesonide No Budesonide (Inhalation (Inhalation (Inhalatio ) ) n) Albuterol Albuterol No 3{ml_as TID Albuterol Sulfate Sulfate _needed Sulfate (2.5 (2.5 } (2.5 MG/3ML) MG/3ML) MG/3ML) 0.083% 0.083% 0.083% Pantoprazol Pantoprazol No 1{table QD Pantoprazo e Sodium 40 e Sodium 40 t} le Sodium MG MG 40 MG metOLazone metOLazone No metOLazone 2.5 MG 2.5 MG 2.5 MG Potassium Potassium No 2{table QD Potassium Chloride 20 Chloride 20 ts_with Chloride MEQ MEQ _food} 20 MEQ Carvedilol Carvedilol No BID Carvedilol 3.125 MG 3.125 MG 3.125 MG Besivance Besivance No 1{drop_ TID Besivance 0.6 % 0.6 % into_af 0.6 % fected_ eye} Fluticasone Fluticasone No QD Fluticason Propionate Propionate e 50 MCG/ACT 50 MCG/ACT Propionate 50 MCG/ACT Vitamin C Vitamin C No 1{table QD Vitamin C 500 MG 500 MG t} 500 MG Aspir-81 81 Aspir-81 81 No 1{table QD Aspir-81 MG MG t} 81 MG Bumetanide Bumetanide No Bumetanide 1 MG 1 MG 1 MG Atropine Atropine No QD Atropine Sulfate 1 % Sulfate 1 % Sulfate 1 % Spiriva Spiriva No 1{capsu QD Spiriva HandiHaler HandiHaler le} HandiHaler 18 MCG 18 MCG 18 MCG ALPRAZolam ALPRAZolam No ALPRAZolam 0.25 MG 0.25 MG 0.25 MG Incruse Incruse No 1{puff} QD Incruse Ellipta Ellipta Ellipta 62.5 62.5 62.5 MCG/INH MCG/INH MCG/INH Pantoprazol Pantoprazol No Pantoprazo e Sodium 40 e Sodium 40 le Sodium MG MG 40 MG traMADol traMADol No traMADol HCl 50 MG HCl 50 MG HCl 50 MG Acetaminoph Acetaminoph No QID Acetaminop en 500 MG en 500 MG hen 500 MG Victoza 18 Victoza 18 No Victoza 18 MG/3ML MG/3ML MG/3ML Ventolin Ventolin No 2{puffs QID Ventolin HFA 108 (90 HFA 108 (90 _as_nee HFA 108 Base) Base) ded} (90 Base) MCG/ACT MCG/ACT MCG/ACT Vitamin B12 Vitamin B12 No 1{table QD Vitamin 1000 MCG 1000 MCG t} B12 1000 MCG Ilevro 0.3 Ilevro 0.3 No 1{drop_ QD Ilevro 0.3 % % into_af % fected_ eye} Sildenafil Sildenafil No Sildenafil Citrate 20 Citrate 20 Citrate 20 MG MG MG Spironolact Spironolact No Spironolac one 25 MG one 25 MG tone 25 MG Breo Breo No 1{puff} QD Breo Ellipta Ellipta Ellipta 100-25 100-25 100-25 MCG/INH MCG/INH MCG/INH Victoza 18 Victoza 18 No QD Victoza 18 MG/3ML MG/3ML MG/3ML Lipitor 10 Lipitor 10 No 1{table QD Lipitor 10 MG MG t} MG Citalopram Citalopram No 1{table QD Citalopram Hydrobromid Hydrobromid t} Hydrobromi e 40 MG e 40 MG de 40 MG Bumex 1 MG Bumex 1 MG No BID Bumex 1 MG Durezol Durezol No 1{drop_ BID Durezol 0.05 % 0.05 % into_af 0.05 % fected_ eye} Sildenafil Sildenafil No 1{table TID Sildenafil Citrate 20 Citrate 20 t} Citrate 20 MG MG MG Budesonide Budesonide No Budesonide (Inhalation (Inhalation (Inhalatio ) ) n) Albuterol Albuterol No 3{ml_as TID Albuterol Sulfate Sulfate _needed Sulfate (2.5 (2.5 } (2.5 MG/3ML) MG/3ML) MG/3ML) 0.083% 0.083% 0.083% Pantoprazol Pantoprazol No 1{table QD Pantoprazo e Sodium 40 e Sodium 40 t} le Sodium MG MG 40 MG metOLazone metOLazone No metOLazone 2.5 MG 2.5 MG 2.5 MG Potassium Potassium No 2{table QD Potassium Chloride 20 Chloride 20 ts_with Chloride MEQ MEQ _food} 20 MEQ Carvedilol Carvedilol No BID Carvedilol 3.125 MG 3.125 MG 3.125 MG Besivance Besivance No 1{drop_ TID Besivance 0.6 % 0.6 % into_af 0.6 % fected_ eye} Fluticasone Fluticasone No QD Fluticason Propionate Propionate e 50 MCG/ACT 50 MCG/ACT Propionate 50 MCG/ACT Vitamin C Vitamin C No 1{table QD Vitamin C 500 MG 500 MG t} 500 MG Aspir-81 81 Aspir-81 81 No 1{table QD Aspir-81 MG MG t} 81 MG Bumetanide Bumetanide No Bumetanide 1 MG 1 MG 1 MG Atropine Atropine No QD Atropine Sulfate 1 % Sulfate 1 % Sulfate 1 % Spiriva Spiriva No 1{capsu QD Spiriva HandiHaler HandiHaler le} HandiHaler 18 MCG 18 MCG 18 MCG ALPRAZolam ALPRAZolam No ALPRAZolam 0.25 MG 0.25 MG 0.25 MG Incruse Incruse No 1{puff} QD Incruse Ellipta Ellipta Ellipta 62.5 62.5 62.5 MCG/INH MCG/INH MCG/INH Pantoprazol Pantoprazol No Pantoprazo e Sodium 40 e Sodium 40 le Sodium MG MG 40 MG traMADol traMADol No traMADol HCl 50 MG HCl 50 MG HCl 50 MG Acetaminoph Acetaminoph No QID Acetaminop en 500 MG en 500 MG hen 500 MG Victoza 18 Victoza 18 No Victoza 18 MG/3ML MG/3ML MG/3ML Ventolin Ventolin No 2{puffs QID Ventolin HFA 108 (90 HFA 108 (90 _as_nee HFA 108 Base) Base) ded} (90 Base) MCG/ACT MCG/ACT MCG/ACT Vitamin B12 Vitamin B12 No 1{table QD Vitamin 1000 MCG 1000 MCG t} B12 1000 MCG Ilevro 0.3 Ilevro 0.3 No 1{drop_ QD Ilevro 0.3 % % into_af % fected_ eye} Sildenafil Sildenafil No Sildenafil Citrate 20 Citrate 20 Citrate 20 MG MG MG Spironolact Spironolact No Spironolac one 25 MG one 25 MG tone 25 MG Breo Breo No 1{puff} QD Breo Ellipta Ellipta Ellipta 100-25 100-25 100-25 MCG/INH MCG/INH MCG/INH Victoza 18 Victoza 18 No QD Victoza 18 MG/3ML MG/3ML MG/3ML Lipitor 10 Lipitor 10 No 1{table QD Lipitor 10 MG MG t} MG Citalopram Citalopram No 1{table QD Citalopram Hydrobromid Hydrobromid t} Hydrobromi e 40 MG e 40 MG de 40 MG Bumex 1 MG Bumex 1 MG No BID Bumex 1 MG Durezol Durezol No 1{drop_ BID Durezol 0.05 % 0.05 % into_af 0.05 % fected_ eye} Sildenafil Sildenafil No 1{table TID Sildenafil Citrate 20 Citrate 20 t} Citrate 20 MG MG MG Budesonide Budesonide No Budesonide (Inhalation (Inhalation (Inhalatio ) ) n) Albuterol Albuterol No 3{ml_as TID Albuterol Sulfate Sulfate _needed Sulfate (2.5 (2.5 } (2.5 MG/3ML) MG/3ML) MG/3ML) 0.083% 0.083% 0.083% Pantoprazol Pantoprazol No 1{table QD Pantoprazo e Sodium 40 e Sodium 40 t} le Sodium MG MG 40 MG metOLazone metOLazone No metOLazone 2.5 MG 2.5 MG 2.5 MG Potassium Potassium No 2{table QD Potassium Chloride 20 Chloride 20 ts_with Chloride MEQ MEQ _food} 20 MEQ Carvedilol Carvedilol No BID Carvedilol 3.125 MG 3.125 MG 3.125 MG Besivance Besivance No 1{drop_ TID Besivance 0.6 % 0.6 % into_af 0.6 % fected_ eye} Fluticasone Fluticasone No QD Fluticason Propionate Propionate e 50 MCG/ACT 50 MCG/ACT Propionate 50 MCG/ACT Vitamin C Vitamin C No 1{table QD Vitamin C 500 MG 500 MG t} 500 MG Aspir-81 81 Aspir-81 81 No 1{table QD Aspir-81 MG MG t} 81 MG Bumetanide Bumetanide No Bumetanide 1 MG 1 MG 1 MG Atropine Atropine No QD Atropine Sulfate 1 % Sulfate 1 % Sulfate 1 % Spiriva Spiriva No 1{capsu QD Spiriva HandiHaler HandiHaler le} HandiHaler 18 MCG 18 MCG 18 MCG ALPRAZolam ALPRAZolam No ALPRAZolam 0.25 MG 0.25 MG 0.25 MG Incruse Incruse No 1{puff} QD Ellipta Ellipta 62.5 62.5 MCG/INH MCG/INH Acetaminoph Acetaminoph No QID en 500 MG en 500 MG traMADol traMADol No HCl 50 MG HCl 50 MG Potassium Potassium No 2{table QD Chloride 20 Chloride 20 ts_with MEQ MEQ _food} Spironolact Spironolact No one 25 MG one 25 MG Sildenafil Sildenafil No Citrate 20 Citrate 20 MG MG Ilevro 0.3 Ilevro 0.3 No 1{drop_ QD % % into_af fected_ eye} Pantoprazol Pantoprazol No e Sodium 40 e Sodium 40 MG MG Lipitor 10 Lipitor 10 No 1{table QD MG MG t} Ventolin Ventolin No 2{puffs QID HFA 108 (90 HFA 108 (90 _as_nee Base) Base) ded} MCG/ACT MCG/ACT Vitamin B12 Vitamin B12 No 1{table QD 1000 MCG 1000 MCG t} Carvedilol Carvedilol No BID 3.125 MG 3.125 MG Pantoprazol Pantoprazol No 1{table QD e Sodium 40 e Sodium 40 t} MG MG Bumex 1 MG Bumex 1 MG No BID Durezol Durezol No 1{drop_ BID 0.05 % 0.05 % into_af fected_ eye} Citalopram Citalopram No Hydrobromid Hydrobromid e 40 MG e 40 MG metOLazone metOLazone No 2.5 MG 2.5 MG Albuterol Albuterol No 3{ml_as TID Sulfate Sulfate _needed (2.5 (2.5 } MG/3ML) MG/3ML) 0.083% 0.083% Sildenafil Sildenafil No 1{table TID Citrate 20 Citrate 20 t} MG MG Breo Breo No 1{puff} QD Ellipta Ellipta 100-25 100-25 MCG/INH MCG/INH Budesonide Budesonide No (Inhalation (Inhalation ) ) Victoza 18 Victoza 18 No MG/3ML MG/3ML Besivance Besivance No 1{drop_ TID 0.6 % 0.6 % into_af fected_ eye} Fluticasone Fluticasone No QD Propionate Propionate 50 MCG/ACT 50 MCG/ACT Vitamin C Vitamin C No 1{table QD 500 MG 500 MG t} Aspir-81 81 Aspir-81 81 No 1{table QD MG MG t} Bumetanide Bumetanide No 1 MG 1 MG Atropine Atropine No QD Sulfate 1 % Sulfate 1 % Spiriva Spiriva No 1{capsu QD HandiHaler HandiHaler le} 18 MCG 18 MCG ALPRAZolam ALPRAZolam No 0.25 MG 0.25 MG Incruse Incruse No 1{puff} QD Ellipta Ellipta 62.5 62.5 MCG/INH MCG/INH Acetaminoph Acetaminoph No QID en 500 MG en 500 MG traMADol traMADol No HCl 50 MG HCl 50 MG Potassium Potassium No 2{table QD Chloride 20 Chloride 20 ts_with MEQ MEQ _food} Spironolact Spironolact No one 25 MG one 25 MG Sildenafil Sildenafil No Citrate 20 Citrate 20 MG MG Ilevro 0.3 Ilevro 0.3 No 1{drop_ QD % % into_af fected_ eye} Pantoprazol Pantoprazol No e Sodium 40 e Sodium 40 MG MG Lipitor 10 Lipitor 10 No 1{table QD MG MG t} Ventolin Ventolin No 2{puffs QID HFA 108 (90 HFA 108 (90 _as_nee Base) Base) ded} MCG/ACT MCG/ACT Vitamin B12 Vitamin B12 No 1{table QD 1000 MCG 1000 MCG t} Carvedilol Carvedilol No BID 3.125 MG 3.125 MG Pantoprazol Pantoprazol No 1{table QD e Sodium 40 e Sodium 40 t} MG MG Bumex 1 MG Bumex 1 MG No BID Durezol Durezol No 1{drop_ BID 0.05 % 0.05 % into_af fected_ eye} Citalopram Citalopram No Hydrobromid Hydrobromid e 40 MG e 40 MG metOLazone metOLazone No 2.5 MG 2.5 MG Albuterol Albuterol No 3{ml_as TID Sulfate Sulfate _needed (2.5 (2.5 } MG/3ML) MG/3ML) 0.083% 0.083% Sildenafil Sildenafil No 1{table TID Citrate 20 Citrate 20 t} MG MG Breo Breo No 1{puff} QD Ellipta Ellipta 100-25 100-25 MCG/INH MCG/INH Budesonide Budesonide No (Inhalation (Inhalation ) ) Victoza 18 Victoza 18 No MG/3ML MG/3ML Besivance Besivance No 1{drop_ TID 0.6 % 0.6 % into_af fected_ eye} Fluticasone Fluticasone No QD Propionate Propionate 50 MCG/ACT 50 MCG/ACT Vitamin C Vitamin C No 1{table QD 500 MG 500 MG t} Aspir-81 81 Aspir-81 81 No 1{table QD MG MG t} Bumetanide Bumetanide No 1 MG 1 MG Atropine Atropine No QD Sulfate 1 % Sulfate 1 % Spiriva Spiriva No 1{capsu QD HandiHaler HandiHaler le} 18 MCG 18 MCG ALPRAZolam ALPRAZolam No 0.25 MG 0.25 MG Incruse Incruse No 1{puff} QD Ellipta Ellipta 62.5 62.5 MCG/INH MCG/INH Acetaminoph Acetaminoph No QID en 500 MG en 500 MG traMADol traMADol No HCl 50 MG HCl 50 MG Potassium Potassium No 2{table QD Chloride 20 Chloride 20 ts_with MEQ MEQ _food} Spironolact Spironolact No one 25 MG one 25 MG Sildenafil Sildenafil No Citrate 20 Citrate 20 MG MG Ilevro 0.3 Ilevro 0.3 No 1{drop_ QD % % into_af fected_ eye} Pantoprazol Pantoprazol No e Sodium 40 e Sodium 40 MG MG Lipitor 10 Lipitor 10 No 1{table QD MG MG t} Ventolin Ventolin No 2{puffs QID HFA 108 (90 HFA 108 (90 _as_nee Base) Base) ded} MCG/ACT MCG/ACT Vitamin B12 Vitamin B12 No 1{table QD 1000 MCG 1000 MCG t} Carvedilol Carvedilol No BID 3.125 MG 3.125 MG Pantoprazol Pantoprazol No 1{table QD e Sodium 40 e Sodium 40 t} MG MG Bumex 1 MG Bumex 1 MG No BID Durezol Durezol No 1{drop_ BID 0.05 % 0.05 % into_af fected_ eye} Citalopram Citalopram No Hydrobromid Hydrobromid e 40 MG e 40 MG metOLazone metOLazone No 2.5 MG 2.5 MG Albuterol Albuterol No 3{ml_as TID Sulfate Sulfate _needed (2.5 (2.5 } MG/3ML) MG/3ML) 0.083% 0.083% Sildenafil Sildenafil No 1{table TID Citrate 20 Citrate 20 t} MG MG Breo Breo No 1{puff} QD Ellipta Ellipta 100-25 100-25 MCG/INH MCG/INH Budesonide Budesonide No (Inhalation (Inhalation ) ) Victoza 18 Victoza 18 No MG/3ML MG/3ML Besivance Besivance No 1{drop_ TID 0.6 % 0.6 % into_af fected_ eye} Fluticasone Fluticasone No QD Propionate Propionate 50 MCG/ACT 50 MCG/ACT Vitamin C Vitamin C No 1{table QD 500 MG 500 MG t} Aspir-81 81 Aspir-81 81 No 1{table QD MG MG t} Bumetanide Bumetanide No 1 MG 1 MG Atropine Atropine No QD Sulfate 1 % Sulfate 1 % Spiriva Spiriva No 1{capsu QD HandiHaler HandiHaler le} 18 MCG 18 MCG ALPRAZolam ALPRAZolam No 0.25 MG 0.25 MG Incruse Incruse No 1{puff} QD Incruse Ellipta Ellipta Ellipta 62.5 62.5 62.5 MCG/INH MCG/INH MCG/INH Acetaminoph Acetaminoph No QID Acetaminop en 500 MG en 500 MG hen 500 MG traMADol traMADol No traMADol HCl 50 MG HCl 50 MG HCl 50 MG Potassium Potassium No 2{table QD Potassium Chloride 20 Chloride 20 ts_with Chloride MEQ MEQ _food} 20 MEQ Spironolact Spironolact No Spironolac one 25 MG one 25 MG tone 25 MG Sildenafil Sildenafil No Sildenafil Citrate 20 Citrate 20 Citrate 20 MG MG MG Ilevro 0.3 Ilevro 0.3 No 1{drop_ QD Ilevro 0.3 % % into_af % fected_ eye} Pantoprazol Pantoprazol No Pantoprazo e Sodium 40 e Sodium 40 le Sodium MG MG 40 MG Lipitor 10 Lipitor 10 No 1{table QD Lipitor 10 MG MG t} MG Ventolin Ventolin No 2{puffs QID Ventolin HFA 108 (90 HFA 108 (90 _as_nee HFA 108 Base) Base) ded} (90 Base) MCG/ACT MCG/ACT MCG/ACT Vitamin B12 Vitamin B12 No 1{table QD Vitamin 1000 MCG 1000 MCG t} B12 1000 MCG Carvedilol Carvedilol No BID Carvedilol 3.125 MG 3.125 MG 3.125 MG Pantoprazol Pantoprazol No 1{table QD Pantoprazo e Sodium 40 e Sodium 40 t} le Sodium MG MG 40 MG Bumex 1 MG Bumex 1 MG No BID Bumex 1 MG Durezol Durezol No 1{drop_ BID Durezol 0.05 % 0.05 % into_af 0.05 % fected_ eye} Citalopram Citalopram No Citalopram Hydrobromid Hydrobromid Hydrobromi e 40 MG e 40 MG de 40 MG metOLazone metOLazone No metOLazone 2.5 MG 2.5 MG 2.5 MG Albuterol Albuterol No 3{ml_as TID Albuterol Sulfate Sulfate _needed Sulfate (2.5 (2.5 } (2.5 MG/3ML) MG/3ML) MG/3ML) 0.083% 0.083% 0.083% Sildenafil Sildenafil No 1{table TID Sildenafil Citrate 20 Citrate 20 t} Citrate 20 MG MG MG Breo Breo No 1{puff} QD Breo Ellipta Ellipta Ellipta 100-25 100-25 100-25 MCG/INH MCG/INH MCG/INH Budesonide Budesonide No Budesonide (Inhalation (Inhalation (Inhalatio ) ) n) Victoza 18 Victoza 18 No Victoza 18 MG/3ML MG/3ML MG/3ML Besivance Besivance No 1{drop_ TID Besivance 0.6 % 0.6 % into_af 0.6 % fected_ eye} Fluticasone Fluticasone No QD Fluticason Propionate Propionate e 50 MCG/ACT 50 MCG/ACT Propionate 50 MCG/ACT Vitamin C Vitamin C No 1{table QD Vitamin C 500 MG 500 MG t} 500 MG Aspir-81 81 Aspir-81 81 No 1{table QD Aspir-81 MG MG t} 81 MG Bumetanide Bumetanide No Bumetanide 1 MG 1 MG 1 MG Atropine Atropine No QD Atropine Sulfate 1 % Sulfate 1 % Sulfate 1 % Spiriva Spiriva No 1{capsu QD Spiriva HandiHaler HandiHaler le} HandiHaler 18 MCG 18 MCG 18 MCG ALPRAZolam ALPRAZolam No ALPRAZolam 0.25 MG 0.25 MG 0.25 MG traMADol traMADol No traMADol HCl 50 MG HCl 50 MG HCl 50 MG Potassium Potassium No 2{table QD Potassium Chloride 20 Chloride 20 ts_with Chloride MEQ MEQ _food} 20 MEQ Fluticasone Fluticasone No QD Fluticason Propionate Propionate e 50 MCG/ACT 50 MCG/ACT Propionate 50 MCG/ACT Budesonide Budesonide No Budesonide (Inhalation (Inhalation (Inhalatio ) ) n) Victoza 18 Victoza 18 No Victoza 18 MG/3ML MG/3ML MG/3ML Ilevro 0.3 Ilevro 0.3 No 1{drop_ QD Ilevro 0.3 % % into_af % fected_ eye} Pantoprazol Pantoprazol No Pantoprazo e Sodium 40 e Sodium 40 le Sodium MG MG 40 MG Incruse Incruse No 1{puff} QD Incruse Ellipta Ellipta Ellipta 62.5 62.5 62.5 MCG/INH MCG/INH MCG/INH Acetaminoph Acetaminoph No QID Acetaminop en 500 MG en 500 MG hen 500 MG Vitamin B12 Vitamin B12 No 1{table QD Vitamin 1000 MCG 1000 MCG t} B12 1000 MCG Spironolact Spironolact No Spironolac one 25 MG one 25 MG tone 25 MG Sildenafil Sildenafil No Sildenafil Citrate 20 Citrate 20 Citrate 20 MG MG MG Lipitor 10 Lipitor 10 No 1{table QD Lipitor 10 MG MG t} MG Bumex 1 MG Bumex 1 MG No BID Bumex 1 MG Vitamin C Vitamin C No 1{table QD Vitamin C 500 MG 500 MG t} 500 MG Durezol Durezol No 1{drop_ BID Durezol 0.05 % 0.05 % into_af 0.05 % fected_ eye} Sildenafil Sildenafil No 1{table TID Sildenafil Citrate 20 Citrate 20 t} Citrate 20 MG MG MG Breo Breo No 1{puff} QD Breo Ellipta Ellipta Ellipta 100-25 100-25 100-25 MCG/INH MCG/INH MCG/INH Besivance Besivance No 1{drop_ TID Besivance 0.6 % 0.6 % into_af 0.6 % fected_ eye} Pantoprazol Pantoprazol No 1{table QD Pantoprazo e Sodium 40 e Sodium 40 t} le Sodium MG MG 40 MG Ventolin Ventolin No 2{puffs QID Ventolin HFA 108 (90 HFA 108 (90 _as_nee HFA 108 Base) Base) ded} (90 Base) MCG/ACT MCG/ACT MCG/ACT metOLazone metOLazone No metOLazone 2.5 MG 2.5 MG 2.5 MG Carvedilol Carvedilol No BID Carvedilol 3.125 MG 3.125 MG 3.125 MG Citalopram Citalopram No Citalopram Hydrobromid Hydrobromid Hydrobromi e 40 MG e 40 MG de 40 MG Albuterol Albuterol No 3{ml_as TID Albuterol Sulfate Sulfate _needed Sulfate (2.5 (2.5 } (2.5 MG/3ML) MG/3ML) MG/3ML) 0.083% 0.083% 0.083% Aspir-81 81 Aspir-81 81 No 1{table QD Aspir-81 MG MG t} 81 MG Bumetanide Bumetanide No Bumetanide 1 MG 1 MG 1 MG Atropine Atropine No QD Atropine Sulfate 1 % Sulfate 1 % Sulfate 1 % Spiriva Spiriva No 1{capsu QD Spiriva HandiHaler HandiHaler le} HandiHaler 18 MCG 18 MCG 18 MCG ALPRAZolam ALPRAZolam No ALPRAZolam 0.25 MG 0.25 MG 0.25 MG traMADol traMADol No traMADol HCl 50 MG HCl 50 MG HCl 50 MG Potassium Potassium No 2{table QD Potassium Chloride 20 Chloride 20 ts_with Chloride MEQ MEQ _food} 20 MEQ Fluticasone Fluticasone No QD Fluticason Propionate Propionate e 50 MCG/ACT 50 MCG/ACT Propionate 50 MCG/ACT Budesonide Budesonide No Budesonide (Inhalation (Inhalation (Inhalatio ) ) n) Victoza 18 Victoza 18 No Victoza 18 MG/3ML MG/3ML MG/3ML Ilevro 0.3 Ilevro 0.3 No 1{drop_ QD Ilevro 0.3 % % into_af % fected_ eye} Pantoprazol Pantoprazol No Pantoprazo e Sodium 40 e Sodium 40 le Sodium MG MG 40 MG Incruse Incruse No 1{puff} QD Incruse Ellipta Ellipta Ellipta 62.5 62.5 62.5 MCG/INH MCG/INH MCG/INH Acetaminoph Acetaminoph No QID Acetaminop en 500 MG en 500 MG hen 500 MG Vitamin B12 Vitamin B12 No 1{table QD Vitamin 1000 MCG 1000 MCG t} B12 1000 MCG Spironolact Spironolact No Spironolac one 25 MG one 25 MG tone 25 MG Sildenafil Sildenafil No Sildenafil Citrate 20 Citrate 20 Citrate 20 MG MG MG Lipitor 10 Lipitor 10 No 1{table QD Lipitor 10 MG MG t} MG Bumex 1 MG Bumex 1 MG No BID Bumex 1 MG Vitamin C Vitamin C No 1{table QD Vitamin C 500 MG 500 MG t} 500 MG Durezol Durezol No 1{drop_ BID Durezol 0.05 % 0.05 % into_af 0.05 % fected_ eye} Sildenafil Sildenafil No 1{table TID Sildenafil Citrate 20 Citrate 20 t} Citrate 20 MG MG MG Breo Breo No 1{puff} QD Breo Ellipta Ellipta Ellipta 100-25 100-25 100-25 MCG/INH MCG/INH MCG/INH Besivance Besivance No 1{drop_ TID Besivance 0.6 % 0.6 % into_af 0.6 % fected_ eye} Pantoprazol Pantoprazol No 1{table QD Pantoprazo e Sodium 40 e Sodium 40 t} le Sodium MG MG 40 MG Ventolin Ventolin No 2{puffs QID Ventolin HFA 108 (90 HFA 108 (90 _as_nee HFA 108 Base) Base) ded} (90 Base) MCG/ACT MCG/ACT MCG/ACT metOLazone metOLazone No metOLazone 2.5 MG 2.5 MG 2.5 MG Carvedilol Carvedilol No BID Carvedilol 3.125 MG 3.125 MG 3.125 MG Citalopram Citalopram No Citalopram Hydrobromid Hydrobromid Hydrobromi e 40 MG e 40 MG de 40 MG Albuterol Albuterol No 3{ml_as TID Albuterol Sulfate Sulfate _needed Sulfate (2.5 (2.5 } (2.5 MG/3ML) MG/3ML) MG/3ML) 0.083% 0.083% 0.083% Aspir-81 81 Aspir-81 81 No 1{table QD Aspir-81 MG MG t} 81 MG Bumetanide Bumetanide No Bumetanide 1 MG 1 MG 1 MG Atropine Atropine No QD Atropine Sulfate 1 % Sulfate 1 % Sulfate 1 % Spiriva Spiriva No 1{capsu QD Spiriva HandiHaler HandiHaler le} HandiHaler 18 MCG 18 MCG 18 MCG ALPRAZolam ALPRAZolam No ALPRAZolam 0.25 MG 0.25 MG 0.25 MG Victoza 18 Victoza 18 No Victoza 18 MG/3ML MG/3ML MG/3ML Vitamin C Vitamin C No 1{table QD Vitamin C 500 MG 500 MG t} 500 MG Aspir-81 81 Aspir-81 81 No 1{table QD Aspir-81 MG MG t} 81 MG Citalopram Citalopram No Citalopram Hydrobromid Hydrobromid Hydrobromi e 40 MG e 40 MG de 40 MG Albuterol Albuterol No 3{ml_as TID Albuterol Sulfate Sulfate _needed Sulfate (2.5 (2.5 } (2.5 MG/3ML) MG/3ML) MG/3ML) 0.083% 0.083% 0.083% Atropine Atropine No QD Atropine Sulfate 1 % Sulfate 1 % Sulfate 1 % Ilevro 0.3 Ilevro 0.3 No 1{drop_ QD Ilevro 0.3 % % into_af % fected_ eye} Budesonide Budesonide No Budesonide (Inhalation (Inhalation (Inhalatio ) ) n) Spiriva Spiriva No 1{capsu QD Spiriva HandiHaler HandiHaler le} HandiHaler 18 MCG 18 MCG 18 MCG Vitamin B12 Vitamin B12 No 1{table QD Vitamin 1000 MCG 1000 MCG t} B12 1000 MCG Sildenafil Sildenafil No Sildenafil Citrate 20 Citrate 20 Citrate 20 MG MG MG Pantoprazol Pantoprazol No Pantoprazo e Sodium 40 e Sodium 40 le Sodium MG MG 40 MG metOLazone metOLazone No metOLazone 2.5 MG 2.5 MG 2.5 MG Acetaminoph Acetaminoph No QID Acetaminop en 500 MG en 500 MG hen 500 MG Bumex 1 MG Bumex 1 MG No 1{table BID Bumex 1 MG t} Carvedilol Carvedilol No BID Carvedilol 3.125 MG 3.125 MG 3.125 MG Incruse Incruse No 1{puff} QD Incruse Ellipta Ellipta Ellipta 62.5 62.5 62.5 MCG/INH MCG/INH MCG/INH Besivance Besivance No 1{drop_ TID Besivance 0.6 % 0.6 % into_af 0.6 % fected_ eye} Ventolin Ventolin No 2{puffs QID Ventolin HFA 108 (90 HFA 108 (90 _as_nee HFA 108 Base) Base) ded} (90 Base) MCG/ACT MCG/ACT MCG/ACT Fluticasone Fluticasone No QD Fluticason Propionate Propionate e 50 MCG/ACT 50 MCG/ACT Propionate 50 MCG/ACT Durezol Durezol No 1{drop_ BID Durezol 0.05 % 0.05 % into_af 0.05 % fected_ eye} Spironolact Spironolact No Spironolac one 25 MG one 25 MG tone 25 MG Bumetanide Bumetanide No Bumetanide 1 MG 1 MG 1 MG Breo Breo No 1{puff} QD Breo Ellipta Ellipta Ellipta 100-25 100-25 100-25 MCG/INH MCG/INH MCG/INH traMADol traMADol No traMADol HCl 50 MG HCl 50 MG HCl 50 MG Citalopram Citalopram No 1{table QD Citalopram Hydrobromid Hydrobromid t} Hydrobromi e 40 MG e 40 MG de 40 MG ALPRAZolam ALPRAZolam No ALPRAZolam 0.25 MG 0.25 MG 0.25 MG Lipitor 10 Lipitor 10 No 1{table QD Lipitor 10 MG MG t} MG Victoza 18 Victoza 18 No QD Victoza 18 MG/3ML MG/3ML MG/3ML Pantoprazol Pantoprazol No 1{table QD Pantoprazo e Sodium 40 e Sodium 40 t} le Sodium MG MG 40 MG Sildenafil Sildenafil No 1{table TID Sildenafil Citrate 20 Citrate 20 t} Citrate 20 MG MG MG Vitamin B12 Vitamin B12 No 1{table QD Vitamin 1000 MCG 1000 MCG t} B12 1000 MCG Vitamin C Vitamin C No 1{table QD Vitamin C 500 MG 500 MG t} 500 MG Victoza 18 Victoza 18 No Victoza 18 MG/3ML MG/3ML MG/3ML Victoza 18 Victoza 18 No QD Victoza 18 MG/3ML MG/3ML MG/3ML Breo Breo No 1{puff} QD Breo Ellipta Ellipta Ellipta 100-25 100-25 100-25 MCG/INH MCG/INH MCG/INH traMADol traMADol No traMADol HCl 50 MG HCl 50 MG HCl 50 MG Carvedilol Carvedilol No BID Carvedilol 3.125 MG 3.125 MG 3.125 MG Albuterol Albuterol No 3{ml_as TID Albuterol Sulfate Sulfate _needed Sulfate (2.5 (2.5 } (2.5 MG/3ML) MG/3ML) MG/3ML) 0.083% 0.083% 0.083% Citalopram Citalopram No Citalopram Hydrobromid Hydrobromid Hydrobromi e 40 MG e 40 MG de 40 MG Lipitor 10 Lipitor 10 No 1{table QD Lipitor 10 MG MG t} MG Bumex 1 MG Bumex 1 MG No 1{table BID Bumex 1 MG t} Budesonide Budesonide No Budesonide (Inhalation (Inhalation (Inhalatio ) ) n) ALPRAZolam ALPRAZolam No ALPRAZolam 0.25 MG 0.25 MG 0.25 MG Citalopram Citalopram No 1{table QD Citalopram Hydrobromid Hydrobromid t} Hydrobromi e 40 MG e 40 MG de 40 MG Pantoprazol Pantoprazol No 1{table QD Pantoprazo e Sodium 40 e Sodium 40 t} le Sodium MG MG 40 MG Sildenafil Sildenafil No Sildenafil Citrate 20 Citrate 20 Citrate 20 MG MG MG Acetaminoph Acetaminoph No QID Acetaminop en 500 MG en 500 MG hen 500 MG Ilevro 0.3 Ilevro 0.3 No 1{drop_ QD Ilevro 0.3 % % into_af % fected_ eye} Potassium Potassium No 2{table QD Potassium Chloride 20 Chloride 20 ts_with Chloride MEQ MEQ _food} 20 MEQ Besivance Besivance No 1{drop_ TID Besivance 0.6 % 0.6 % into_af 0.6 % fected_ eye} Fluticasone Fluticasone No QD Fluticason Propionate Propionate e 50 MCG/ACT 50 MCG/ACT Propionate 50 MCG/ACT metOLazone metOLazone No metOLazone 2.5 MG 2.5 MG 2.5 MG Spironolact Spironolact No Spironolac one 25 MG one 25 MG tone 25 MG Spiriva Spiriva No 1{capsu QD Spiriva HandiHaler HandiHaler le} HandiHaler 18 MCG 18 MCG 18 MCG Sildenafil Sildenafil No 1{table TID Sildenafil Citrate 20 Citrate 20 t} Citrate 20 MG MG MG Incruse Incruse No 1{puff} QD Incruse Ellipta Ellipta Ellipta 62.5 62.5 62.5 MCG/INH MCG/INH MCG/INH Pantoprazol Pantoprazol No Pantoprazo e Sodium 40 e Sodium 40 le Sodium MG MG 40 MG Carvedilol Carvedilol No Carvedilol 3.125 MG 3.125 MG 3.125 MG Durezol Durezol No 1{drop_ BID Durezol 0.05 % 0.05 % into_af 0.05 % fected_ eye} Bumetanide Bumetanide No Bumetanide 1 MG 1 MG 1 MG Potassium Potassium 2021- No 2{table QD Potassium Chloride 20 Chloride 20 06-09 ts_with Chloride MEQ MEQ 00:00 _food} 20 MEQ :00 Breo Breo 2020- No Perez 1 puff Common Ellipta Ellipta 05-06 [facility] 00:00 - [facility] :00 [facility] Immunizations Ordered Filled Date Status Comments Source Immunization Name Immunization Name Influenza Virus 2021-06-19 Completed [facility] dical Preserv and ABX Branch Free 6 MO-64 YRS Influenza Virus 2021-06-19 Completed [facility], [facility]00 [place] [facility] Preserv and ABX Branch Free 6 MO-64 YRS Influenza Virus 2021-06-19 Completed [facility], 00:[facility]:00 [place] [facility] Preserv and ABX Branch Free 6 MO-64 YRS Influenza Virus 2021-06-19 Completed [facility], 00:[facility]:00 [place] [facility] Preserv and ABX Branch Free 6 MO-64 YRS Influenza Virus 2021-06-19 Completed [facility], [facility]00 [place] [facility] Preserv and ABX Branch Free 6 MO-64 YRS Moderna COVID-19 Moderna COVID-19 2020-07-14 Completed [facility] Vacc[facility] Vaccine 10:03:00 [facility] Moderna COVID-19 Moderna COVID-19 2020-07-14 Completed [facility] - Vaccine Vaccine 10:03:00 [facility] Moderna COVID-19 Moderna COVID-19 2020-07-14 Completed [facility] - Vaccine Vaccine 10:03:00 [facility] Moderna COVID-19 Moderna COVID-19 2020-07-14 Completed [facility] - Vaccine Vaccine 10:03:00 [facility] Moderna COVID-19 Moderna COVID-19 2020-07-14 Completed [facility] - Vaccine Vaccine 10:03:00 [facility] Moderna COVID-19 Moderna COVID-19 2020-07-14 Completed [facility] - Vaccine Vaccine 10:03:00 [facility] Moderna COVID-19 Moderna COVID-19 2020-07-14 Completed [facility] - Vaccine Vaccine 10:03:00 [facility] Moderna COVID-19 Moderna COVID-19 2020-07-14 Completed [facility] - Vaccine Vaccine 10:03:00 [facility] Moderna COVID-19 Moderna COVID-19 2020-07-14 Completed [facility] - Vaccine Vaccine 10:03:00 [facility] Moderna COVID-19 Moderna COVID-19 2020-07-14 Completed [facility] - Vaccine Vaccine 10:03:00 [facility] Moderna COVID-19 Moderna COVID-19 2020-07-14 Completed [facility] - Vaccine Vaccine 10:03:00 [facility] Moderna COVID-19 Moderna COVID-19 2020-07-14 Completed Co [facility]ine Vaccine 10:03:00 [facility] Moderna COVID-19 Moderna COVID-19 2020-07-14 Completed [facility] - Vaccine Vaccine 10:03:00 [facility] Moderna COVID-19 Moderna COVID-19 2020-07-14 Completed [facility] - Vaccine Vaccine 10:03:00 [facility] Moderna COVID-19 Moderna COVID-19 2020-07-14 Completed [facility] - Vaccine Vaccine 10:03:00 [facility] Moderna COVID-19 Moderna COVID-19 2020-07-14 Completed [facility] - Vaccine Vaccine 10:03:00 [facility] Moderna COVID-19 Moderna COVID-19 2020-07-14 Completed [facility] - Vaccine Vaccine 10:03:00 [facility] Moderna COVID-19 Moderna COVID-19 2020-07-14 Completed [facility] - Vaccine Vaccine 10:03:00 [facility] Moderna COVID-19 Moderna COVID-19 2020-07-14 Completed [facility] - Vaccine Vaccine 10:03:00 [facility] Moderna COVID-19 Moderna COVID-19 2020-07-14 Completed [facility] - Vaccine Vaccine 10:03:00 [facility] Moderna COVID-19 Moderna COVID-19 2020-07-14 Completed [facility] - Vaccine Vaccine 10:03:00 [facility] Moderna COVID-19 Moderna COVID-19 2020-07-14 Completed [facility] - Vaccine Vaccine 10:03:00 [facility] Moderna COVID-19 Moderna COVID-19 2020-07-14 Completed [facility] - Vaccine Vaccine 10:03:00 [facility] Moderna COVID-19 Moderna COVID-19 2020-07-14 Completed [facility] - Vaccine Vaccine 10:03:00 [facility] Moderna COVID-19 Moderna COVID-19 2020-07-14 Completed [facility] - Vaccine Vaccine 10:03:00 [facility] Moderna COVID-19 Moderna COVID-19 2020-07-14 Completed [facility] - Vaccine Vaccine 10:03:00 [facility] Moderna COVID-19 Moderna COVID-19 2020-07-14 Completed [facility] - Vaccine Vaccine 10:03:00 [facility] Moderna COVID-19 Moderna COVID-19 2020-07-14 Completed [facility] - Vaccine Vaccine 10:03:00 [facility] Moderna COVID-19 Moderna COVID-19 2020-07-14 Completed [facility] - Vaccine Vaccine 10:03:00 [facility] Moderna COVID-19 Moderna COVID-19 2020-07-14 Completed [facility] - Vaccine Vaccine 10:03:00 [facility] Moderna COVID-19 Moderna COVID-19 2020-07-14 Completed [facility] - Vaccine Vaccine 10:03:00 [facility] Moderna COVID-19 Moderna COVID-19 2020-07-14 Completed [facility] - Vaccine Vaccine 10:03:00 [facility] Moderna COVID-19 Moderna COVID-19 2020-07-14 Completed [facility] - Vaccine Vaccine 10:03:00 [facility] Moderna COVID-19 Moderna COVID-19 2020-07-14 Completed [facility] - Vaccine Vaccine 10:03:00 [facility] Moderna COVID-19 Moderna COVID-19 2020-07-14 Completed [facility] - Vaccine Vaccine 10:03:00 [facility] Moderna COVID-19 Moderna COVID-19 2020-07-14 Completed [facility] - Vaccine Vaccine 10:03:00 [facility] Moderna COVID-19 Moderna COVID-19 2020-07-14 Completed [facility] - Vaccine Vaccine 10:03:00 [facility] Moderna COVID-19 Moderna COVID-19 2020-07-14 Completed [facility] - Vaccine Vaccine 10:03:00 [facility] Moderna COVID-19 Moderna COVID-19 2020-07-14 Completed [facility] - Vaccine Vaccine 10:03:00 [facility] Moderna COVID-19 Moderna COVID-19 2020-07-14 Completed [facility] - Vaccine Vaccine 10:03:00 [facility] Moderna COVID-19 Moderna COVID-19 2020-07-14 Completed [facility] - Vaccine Vaccine 10:03:00 [facility] Moderna COVID-19 Moderna COVID-19 2020-07-14 Completed [facility] - Vaccine Vaccine 10:03:00 [facility] Moderna COVID-19 Moderna COVID-19 2020-07-14 Completed [facility] - Vaccine Vaccine 10:03:00 [facility] FLUCELVAX QUAD PF 2018-12-[address] 00:00[facility]00 [facility] Influenza Virus 2018-12-14 Completed [facility] of Vaccine 00:00:00 [facility] Influenza Virus 2018-12-14 Completed Universit y of Vaccine 00:00:00 [facility] Influenza Virus 2018-12-14 Completed Universit y of Vaccine 00:00:00 [facility] Influenza Virus 2018-12-14 Completed Universit y of Vaccine 00:00:00 [facility] Influenza Virus 2018-12-14 Completed Universit y of Vaccine 00:00:00 [facility] Td 2017-05-20 Completed University of 00:00:00 [facility] Td 2017-05-20 Completed University of 00:00:00 [facility] Td 2017-05-20 Completed University of 00:00:00 [facility] Td 2017-05-20 Completed University of 00:00:00 [facility] Td 2017-05-20 Completed University of 00:00:00 [facility] FLUCELVAX QUAD PF Unknown Completed [facility] Vital Signs Vital Name Observation Time Observation Value Comments Source Systolic blood 2022-02-26 00:47:00 128 mm[Hg] Univer sity of pressure [facility] Diastolic blood 2022-02-26 00:47:00 75 mm[Hg] Unive rsity of pressure [facility] Heart rate 2022-02-26 00:47:00 74 /min [facility] Respiratory rate 2022-02-26 00:47:00 16 /min [facility] Oxygen saturation in 2022-02-26 00:47:00 98 /min [facility] Arterial blood by [facility] Pulse oximetry Branch Body temperature 2022-02-25 22:51:00 36.33 Pr[facility]ila [facility] Body height 2022-02-25 22:51:00 152.4 cm [facility] Body weight 2022-02-25 22:51:00 99.338 kg Universi ty [facility] BMI 2022-02-25 22:51:00 42.77 kg/m2 Universi ty [facility] height 2022-02-24 13:00:00 62 [in_i] Common [facility] weight 2022-02-24 13:00:00 252 [lb_av] [facility] temperature 2022-02-24 13:00:00 97.4 [degF] Common [facility] bmi 2022-02-24 13:00:00 46.09 kg/m2 [facility] oximetry 2022-02-24 13:00:00 98 % [facility] blood pressure 2022-02-24 13:00:00 123 mm[Hg] [facility] systolic [facility] blood pressure 2022-02-24 13:00:00 76 mm[Hg] [facility] - diastolic [facility] Respiratory rate 2022-02-05 21:16:00 19 /min [facility] O[facility] saturation in 2022-02-05 21:16:00 91 /min [facility] Arterial blood by [facility] Pulse oximetry Branch Systolic blood 2022-02-05 21:00:00 95 mm[Hg] Univer sity of pressure [facility] Diastolic blood 2022-02-05 21:00:00 59 mm[facility]Hg[facility] 2022-02-05 21:00:00 97 /min Universi [facility] Body temperature 2022-02-05 21:00:00 36.67 [facility]ila [facility] Body weight 2022-02-05 13:00:00 98.5 kg Universi ty [facility] BMI 2022-02-05 13:00:00 42.41 kg/m2 Universi ty [facility] Body height 2022-01-26 20:10:00 152.4 cm Universi ty [facility] height 2022-01-17 07:50:00 62 [in_i] Common [facility] weight 2022-01-17 07:50:00 250 [lb_av] Common [facility] temperature 2022-01-17 07:50:00 98 [degF] Common [facility] bmi 2022-01-17 07:50:00 45.72 kg/m2 Common [facility] blood pressure 2022-01-17 07:50:00 119 mm[Hg] [facility] - systolic [facility] blood pressure 2022-01-17 07:50:00 79 mm[Hg] [facility] - diastolic [facility] Systolic blood 2021-08-05 04:00:00 142 mm[Hg] Univer sity of [facility] Diastolic blood 2021-08-05 04:00:00 69 mm[Hg] Unive rsity of [facility] Heart rate 2021-08-05 04:00:00 70 /min [facility] Respiratory rate 2021-08-05 04:00:00 20 /min [facility] Oxygen saturation in 2021-08-05 04:00:00 96 /min [facility] Arterial blood by [facility] Pulse oximetry [place] Body temperature 2021-08-05 00:37:00 37.33 Priscila [facility] Body height 2021-08-05 00:37:00 165.1 cm [facility] Body weight 2021-08-05 00:37:00 99.791 kg [facility] BMI 2021-08-05 00:37:00 36.61 kg/m2 [facility] height 2021-07-05 09:20:00 62 [in_i] Common [facility] weight 2021-07-05 09:20:00 221 [lb_av] [facility] bmi 2021-07-05 09:20:00 40.42 kg/m2 [facility] Systolic blood 2021-06-19 20:03:00 126 mm[Hg] Univer sity of [facility] Diastolic blood 2021-06-19 20:03:00 77 mm[Hg] Unive rsity of [facility] Heart rate 2021-06-19 20:03:00 88 /min Universi ty of [facility] Body weight 2021-06-19 20:03:00 100.245 kg Universi [facility] BMI 2021-06-19 20:03:00 43.16 kg[facility]m2 [facility] in 2021-06-19 20:03:00 95 /min University [facility] blood by [facility] Pulse oximetry Branch height 2021-05-23 11:30:00 62 [in_i] Common [facility] weight 2021-05-23 11:30:00 214 [lb_av] Common [facility] temperature 2021-05-23 11:30:00 96.6 [degF] Common [facility] bmi 2021-05-23 11:30:00 39.14 kg/m2 [facility] blood pressure 2021-05-23 11:30:00 111 mm[Hg] [facility] - systolic [facility] blood pressure 2021-05-23 11:30:00 64 mm[Hg] [facility] - diastolic [facility] height 2021-03-11 13:00:00 62 [in_i] Common [facility] weight 2021-03-11 13:00:00 236 [lb_av] Common [facility] temperature 2021-03-11 13:00:00 98 [degF] [facility] bmi 2021-03-11 13:00:00 43.16 kg/m2 Common [facility] blood pressure 2021-03-11 13:00:00 132 mm[Hg] [facility] - systolic [facility] blood pressure 2021-03-11 13:00:00 67 mm[Hg] [facility] - diastolic [facility] height 2021-01-25 08:50:00 62 [in_i] Common [facility] weight 2021-01-25 08:50:00 236.9 [lb_av] [facility] temperature 2021-01-25 08:50:00 97.1 [degF] [facility] bmi 2021-01-25 08:50:00 43.32 kg/m2 [facility] oximetry 2021-01-25 08:50:00 91 % [facility] respiratory rate 2021-01-25 08:50:00 17 /min [facility] blood pressure 2021-01-25 08:50:00 133 mm[Hg] [facility] - systolic [facility] blood pressure 2021-01-25 08:50:00 64 mm[Hg] [facility] - diastolic [facility] height 2020-11-05 14:40:00 62 [in_i] [facility] weight 2020-11-05 14:40:00 280 [lb_av] [facility] temperature 2020-11-05 14:40:00 97.4 [degF] [facility] bmi 2020-11-05 14:40:00 51.21 kg/m2 [facility] blood pressure 2020-11-05 14:40:00 131 mm[Hg] Common [facility] - systolic [facility] blood pressure 2020-11-05 14:40:00 70 mm[Hg] [facility] diastolic [facility] Procedures Procedure Date / Time Performing Clinician Source Performed BASIC METABOLIC PANEL 2022-02-25 23:26:00 Kurtis Sanders [facility] (NA, K, CL, CO2, GLUCOSE, Medica l Branch BUN, CREATININE, CA) CBC WITH DIFF 2022-02-25 23:26:00 Kurtis Sanders [facility] POCT GLUCOSE (AUTOMATED) 2022-02-25 23:01:00 Kurtis Sanders [facility] POCT GLUCOSE (AUTOMATED) 2022-02-05 21:10:00 Enoc Ware [facility] COVID-19 (ID NOW RAPID 2022-02-05 19:02:00 Moni Randall [facility]SE (AUTOMATED) 2022-02-05 16:10:00 [facility]) 2022-02-05 12:31:00 [facility] BASIC METABOLIC PANEL 2022-02-05 08:37:00 [facility] (NA, K, CL, CO2, GLUCOSE, Medica l Branch BUN, CREATININE, CA) CBC WITHOUT DIFF 2022-02-05 08:37:00 [facility] 2022-02-05 02:12:00 Enoc Ware [facility] POCT GLUCOSE (AUTOMATED) 2022-02-04 21:25:00 [facility] PO[facility]UCOSE (AUTOMATED) 2022-02-04 16:39:00 [facility] PO[facility]UCOSE (AUTOMATED) 2022-02-04 12:44:00 [facility] PO[facility]UCOSE (AUTOMATED) 2022-02-04 01:27:00 Enoc Ware [facility] XR ABDOMEN 1 VW 2022-02-03 21:50:56 [facility]) 2022-02-03 16:45:00 Enoc Ware [facility] POCT GLUCOSE (AUTOMATED) 2022-02-03 13:02:00 [facility] 2022-02-03 09:37:00 Tonia [facility] BASIC METABOLIC PANEL 2022-02-03 09:37[facility] ([facility], K, CL, CO2, GLUCOSE, Medica l Branch BUN, CREATININE, CA) N-TERMINAL PRO-BNP 2022-02-03 09:37:00 Tonia [facility] POCT GLUCOSE (AUTOMATED) 2022-02-03 01:31:00 [facility] PO[facility] GLUCOSE (AUTOMATED) 2022-02-02 21:29:00 Enoc Ware versity of [facility] POCT GLUCOSE (AUTOMATED) 2022-02-02 16:06:00 Enoc Ware versity of [facility] POCT GLUCOSE (AUTOMATED) 2022-02-02 13:03:00 Enoc [facility] 2022-02-02 08:35:00 Tonia [facility] BASIC METABOLIC PANEL 2022-02-02 08:35:00 [facility] (NA, K, CL, CO2, GLUCOSE, Medica l Branch BUN, CREATININE, CA) CBC WITH DIFF 2022-02-02 08:35:00 [facility] N-TERMINAL PRO-BNP 2022-02-02 08:35:00 Tonia [facility] POCT GLUCOSE (AUTOMATED) 2022-02-02 01:32:00 [facility]oc [facility] PO[facility]UCOSE (AUTOMATED) 2022-02-01 21:25:00 Enoc [facility] PO[facility]UCOSE (AUTOMATED) 2022-02-01 16:32:00 Enoc Ware [facility] PO[facility]UCOSE (AUTOMATED) 2022-02-01 12:37:00 Enoc Ware [facility] BASIC METABOLIC PANEL 2022-02-01 10:35:00 Domingo Hart [facility] (NA, K, CL, CO2, GLUCOSE, Medica l Branch BUN, CREATININE, CA) N-TERMINAL PRO-BNP 2022-02-01 10:35:00 Tonia [facility] POCT GLUCOSE (AUTOMATED) 2022-02-01 01:16:00 Enoc Ware Uni versity [facility] POCT GLUCOSE (AUTOMATED) 2022-01-31 21:38:00 Enoc Ware Uni versity [facility] POCT GLUCOSE (AUTOMATED) 2022-01-31 16:36:00 Enoc Ware versaureliano [facility] DUPLEX VENOUS LEGS 2022-01-31 14:43:00 [facility] - BY [facility]ASCULAR [facility] POCT GLUCOSE (AUTOMATED) 2022-01-31 12:18:00 Enoc Ware versaureliano [facility] MAGNESIUM 2022-01-31 09:58:00 Tonia [facility] BASIC METABOLIC PANEL 2022-01-31 09:58:00 Tonia [facility] (NA, K, CL, CO2, GLUCOSE, Medica l Branch BUN, CREATININE, CA) CBC WITH DIFF 2022-01-31 09:58:00 Tonia [facility] N-TERMINAL PRO-BNP 2022-01-31 09:58:00 Tonia [facility] POCT GLUCOSE (AUTOMATED) 2022-01-31 01:09:00 [facility] PO[facility] GLUCOSE (AUTOMATED) 2022-01-30 21:29:00 [facility]oc [facility] POCT GLUCOSE (AUTOMATED) 2022-01-30 16:32:00 [facility]oc [facility] PO[facility] GLUCOSE (AUTOMATED) 2022-01-30 12:21:00 Enoc Ware versity [facility] MAGNESIUM 2022-01-30 08:57:00 Tanner [facility] BASIC METABOLIC PANEL 2022-01-30 08:57:00 Domingo Hart [facility] (NA, K, CL, CO2, GLUCOSE, Medica l Branch BUN, CREATININE, CA) CBC WITH DIFF 2022-01-30 08:57:00 Bland [facility] N-TERMINAL PRO-BNP 2022-01-30 08:57:00 Tonia [facility] POCT GLUCOSE (AUTOMATED) 2022-01-30 08:19:00 Enoc Ware Uni versity [facility] POCT GLUCOSE (AUTOMATED) 2022-01-30 03:16:00 [facility] PO[facility]UCOSE (AUTOMATED) 2022-01-30 01:30:00 Enoc Ware Uni versity of [facility] POCT GLUCOSE (AUTOMATED) 2022-01-29 21:47:00 Enoc Ware Uni versity of [facility] POCT GLUCOSE (AUTOMATED) 2022-01-29 16:36:00 Enoc Ware Uni versity of [facility] POCT GLUCOSE (AUTOMATED) 2022-01-29 12:24:00 Enoc Ware Uni versity of [facility] BASIC METABOLIC PANEL 2022-01-29 08:48:00 Domingo Hart [facility] (NA, K, CL, CO2, GLUCOSE, Medica l Branch BUN, CREATININE, CA) CBC WITH DIFF 2022-01-29 08:48:00 [facility] POCT GLUCOSE (AUTOMATED) 2022-01-29 00:52:00 Enoc Ware Uni versity of [facility] POCT GLUCOSE (AUTOMATED) 2022-01-28 21:37:00 Enoc Ware Uni versity of [facility] POCT GLUCOSE (AUTOMATED) 2022-01-28 16:42:00 Enoc Ware Uni versity of [facility] POCT GLUCOSE (AUTOMATED) 2022-01-28 12:46:00 Enoc Ware Uni versity of [facility] XR CHEST 1 VW 2022-01-28 12:03:00 Tanner [facility] MAGNESIUM 2022-01-28 08:58:00 [facility] BASIC METABOLIC PANEL 2022-01-28 08:58:00 Domingo Hart [facility] (NA, K, CL, CO2, GLUCOSE, Medica l Branch BUN, CREATININE, CA) POCT GLUCOSE (AUTOMATED) 2022-01-28 01:22:00 Enoc Ware Uni versity of [facility] POCT GLUCOSE (AUTOMATED) 2022-01-27 21:17:00 Enoc Ware Uni versity of [facility] POCT GLUCOSE (AUTOMATED) 2022-01-27 16:39:00 Enoc Ware Uni versity of [facility] POCT GLUCOSE (AUTOMATED) 2022-01-27 12:17:00 Enoc Ware [facility] MRSA / MSSA SCREEN BY 2022-01-27 10:00:00 Domingo Hart [facility] PCR, NARES Medical Branch MAGNESIUM 2022-01-27 09:59:00 Tanner [facility] BASIC METABOLIC PANEL 2022-01-27 09:59:00 Domingo Hart [facility] (NA, K, CL, CO2, GLUCOSE, Medica l Branch BUN, CREATININE, CA) CBC WITH DIFF 2022-01-27 09:59:00 Tanner [facility] GLYCOSYLATED HEMOGLOBIN 2022-01-27 09:59:00 Tanner [facility] (A1C) [facility] N-TERMINAL PRO-BNP 2022-01-27 09:59:00 Domingo Hart [facility] URINALYSIS 2022-01-26 23:08:00 Enoc Ware [facility] ACUTE CARE ARTERIAL BLOOD 2022-01-26 17:28:00 Enoc Ware [facility] GAS [facility] RAPID INFLUENZA A/B 2022-01-26 15:33:00 Enoc Ware [facility] COVID-19 (ID NOW RAPID 2022-01-26 15:33:00 Enoc Ware [facility] TESTING) [facility] LAB ONLY COVID 2022-01-26 15:33:00 Enoc Ware [facility] XR CHEST 1 VW 2022-01-26 15:24:00 Enoc Ware [facility] CK (CREATINE KINASE) + MB 2022-01-26 15:06:00 Enoc Ware Un [facility] LIPASE 2022-01-26 15:06:00 Enoc Ware [facility] TROPONIN I 2022-01-26 15:06:00 Enoc Ware [facility] COMP. METABOLIC PANEL 2022-01-26 15:06:00 Enoc aWre [facility] ([id number]) [facility] [place] CBC WITH DIFF 2022-01-26 15:06:00 Enoc Ware [facility] N-TERMINAL PRO-BNP 2022-01-26 15:06:00 Enoc Ware [facility] HB ECG ROUTINE & RHYTHM 2022-01-26 15:00:07 Enoc Ware [facility] XR FEMUR 2 VW LEFT 2021-08-05 01:28:00 [facility]len[facility] XR HIP 1 VW LEFT 2021-08-05 01:28:00 [facility] KNEE <3 VW LEFT 2021-08-05 01:28:00 [facility] FLU VACC ([id number]), 2021-06-19 20:45:38 Adriana Reynolds [facility] 2-64 YRS, .5ML, IM, [facility] Branch (FLUCELVAX) Plan of Care Planned Activity Planned Date Details Comments Source Future Scheduled 2023-01-22 Screening [facility] Test 01:36:32 malignant neoplasm of colon (procedure) [code = 999538424] Future Scheduled 2023-01-22 [facility] Test 01:36:32 malignant neoplasm of colon (procedure) [code = 734113786] Future Scheduled 2023-01-22 [facility] Test 01:36:32 malignant neoplasm of colon (procedure) [code = 846769848] Future Scheduled 2023-01-22 Pneumococcal Vaccine: [facility] Test 01:36:32 Pediatrics (0 to 5 Years) and At-Risk Patients (6 to 64 Years) (1 - PCV) [code = Pneumococcal Vaccine: Pediatrics (0 to 5 Years) and At-Risk Patients (6 to 64 Years) (1 - PCV)] Future Scheduled 2023-01-22 DIABETES: RETINAL EYE [facility] Test 01:36:32 EXAM [code = DIABETES: RETINAL EYE EXAM] Future Scheduled 2023-01-22 DIABETIC FOOT EXAM [facility] Test 01:36:32 [code = DIABETIC FOOT EXAM] Future Scheduled 2023-01-22 URINE MICROALBUMIN [facility] Test 01:36:32 [code = URINE MICROALBUMIN] Future Scheduled 2023-01-22 Hepatitis C screening [facility] Test 01:36:32 (procedure) [code = 390965252] Future Scheduled 2023-01-22 Screening for [facility] Test 01:36:32 malignant neoplasm of cervix (procedure) [code = 116129859] Future Scheduled 2023-01-22 BREAST CANCER [facility] Test 01:36:32 SCREENING [code = BREAST CANCER SCREENING] Future Scheduled 2023-01-22 Screening for [facility] Test 01:36:32 malignant neoplasm of colon (procedure) [code = [id number]] Future Scheduled 2023-01-22 Screening for [facility] Test 01:36:32 malignant neoplasm of colon (procedure) [code = 379176967] Future Scheduled 2023-01-22 SHINGLES VACCINES (1 Met [facility] Test 01:36:32 of 2) [code = SHINGLES VACCINES (1 of 2)] Future Scheduled 2023-01-22 COVID-19 VACCINE (3 - [facility] Test 01:36:32 season) [code = COVID-19 VACCINE (3 - season)] Future Scheduled 2023-01-22 INFLUENZA VACCINE (#1) [facility] Test 01:36:32 [code = INFLUENZA VACCINE (#1)] Future Scheduled 2023-01-22 RSV VACCINES > 60 YR [facility] Test 01:36:32 (1 - 1-dose 60+ series) [code = RSV VACCINES > 60 YR (1 - 1-dose 60+ series)] Future Scheduled 2022-07-14 Pneumococcal Vaccine: [facility] Test 11:17:29 Pediatrics (0 to 5 Years) and At-Risk Patients (6 to 64 Years) (1 - PCV) [code = Pneumococcal Vaccine: Pediatrics (0 to 5 Years) and At-Risk Patients (6 to 64 Years) (1 - PCV)] Future Scheduled 2022-07-14 DIABETES: RETINAL EYE [facility] Test 11:17:29 EXAM [code = DIABETES: RETINAL EYE EXAM] Future Scheduled 2022-07-14 DIABETIC FOOT EXAM [facility] Test 11:17:29 [code = DIABETIC FOOT EXAM] Future Scheduled 2022-07-14 URINE MICROALBUMIN [facility] Test 11:17:29 [code = URINE MICROALBUMIN] Future Scheduled 2022-07-14 Hepatitis C screening [facility] Test 11:17:29 (procedure) [code = 153718266] Future Scheduled 2022-07-14 Screening for [facility] Test 11:17:29 malignant neoplasm of cervix (procedure) [code = 780298118] Future Scheduled 2022-07-14 BREAST CANCER [facility] Test 11:17:29 SCREENING [code = BREAST CANCER SCREENING] Future Scheduled 2022-07-14 COLONOSCOPY SCREENING [facility] Test 11:17:29 [code = COLONOSCOPY SCREENING] Future Scheduled 2022-07-14 SHINGLES VACCINES (1 Met [facility] Test 11:17:29 of 2) [code = SHINGLES VACCINES (1 of 2)] Future Scheduled 2022-07-14 COVID-19 VACCINE (3 - [facility] Test 11:17:29 Booster for Moderna series) [code = COVID-19 VACCINE (3 - Booster for Moderna series)] Future Scheduled 2022-07-14 INFLUENZA VACCINE [facility] Test 11:17:29 [code = INFLUENZA VACCINE] Encounters Start End Encounter Admission Attending Care Care Encounter Source Date/Time Date/Time Type Type Clinicians Facility Department ID 2023-01-22 Outpatient Saragadam, STLMLC STLC [id number] Common 10:55:00 Rosa 13382 [facility] 2022-11-25 [facility] [id number] Common 09:37:00 Perez 08418 [facility] 2022-10-30 Outpatient Vera, STLMLC STLC [id number] Common 14:26:00 Perez 80316 [facility] 2022-10-28 Outpatient Vera, STLMLC STLC [id number] Common 10:23:00 Perez 91601 [facility] 2022-10-24 Outpatient Vera, STLMLC STLC [id number] Common 11:31:00 Perez [id number] [facility] 2022-08-06 Outpatient Vera, STLMLC STLC [id number] Common 16:09:00 Perez [id number] [facility] 2022-05-07 Outpatient Vera, STLMLC STLC [id number] Common 05:57:00 Perez 10139 [facility] 2022-01-31 Outpatient 3 [id number] ENCPL PUL [facility] 14:55:41 1028 [facility] 2022-01-30 Outpatient 3 [id number] ENCPL PUL [facility] 14:51:23 1027 [facility] [place] [facility] 2021-08-23 Outpatient Vera, STLMLC STLMLC Common 15:06:00 Perez [facility] 2021-05-11 Outpatient 3 [id number] ENCSL REF [id number] [facility] 09:23:43 [facility] [place] 2021-05-02 Outpatient 3 [id number] ENCSL REF [id number] [facility] 13:47:40 [facility] [place] 2021-05-01 Outpatient Vera, STLMLC STLC Common 14:38:52 Perez [facility] 2021-05-01 Outpatient Vera, STLMLC STLC Common 14:29:49 Perez [id number] [facility] 2021-05-01 Outpatient Vera, STLMLC STLC Common 14:07:47 Perez 74865 [facility] 2021-05-01 Outpatient Vera, STLMLC STLC Common 14:02:44 Perez 11975 [facility] 2021-05-01 Outpatient Vera, STLMLC STLMLC Common 13:41:43 Perez [id number] [facility] 2021-05-01 Outpatient Vera, STLMLC STLMLC [id number] Common 13:34:30 Perez 10161 [facility] 2021-05-01 Outpatient Vera, STLMLC STLC Common 13:34:04 Perez 05141 [facility] 2021-05-01 Outpatient Vera, STLMLC STLMLC [id number] Common 13:32:48 Perez 69357 [facility] 2021-05-01 Outpatient Vera, STLMLC STLMLC [id number] Common 13:18:19 Perez 17793 [facility] 2021-05-01 Outpatient Vera, STLMLC STLMLC [id number] Common 13:10:18 Perez 72428 [facility] 2021-05-01 Outpatient Vera, STLMLC STLMLC [id number] Common 12:27:47 Perez 80867 [facility] 2021-05-01 Outpatient Vera, STLMLC STLMLC [id number] Common 12:25:34 Perez 48123 [facility] 2021-05-01 Outpatient Vera, STLMLC STLMLC [id number] Common 12:05:07 Perez 17101 [facility] 2021-05-01 Outpatient Vera, STLMLC STLMLC [id number] Common 11:57:34 Perez 11764 [facility] 2021-05-01 Outpatient Vera, STLMLC STLMLC [id number] Common 11:31:32 Perez 66593 [facility] 2021-05-01 Outpatient Vera, STLMLC STLMLC [id number] Common 11:30:30 Perez 82744 [facility] 2021-05-01 Outpatient Vera, STLMLC STLMLC [id number] Common 11:26:52 Perez 75992 [facility] 2021-05-01 Outpatient Vera, STLMLC STLMLC [id number] Common 11:20:23 Perez [id number] [facility] 2021-05-01 Outpatient Vera, STLMLC STLMLC [id number] Common 11:13:04 Perez 02682 [facility] 2021-05-01 Outpatient Vera, STLMLC STLMLC [id number] Common 11:05:48 Perez 78454 [facility] 2021-05-01 Outpatient Vera, STLMLC STLMLC [id number] Common 11:04:19 Perez [id number] [facility] 2021-05-01 Outpatient Vera, STLMLC STLMLC [id number] Common 11:00:46 [facility] 25959 [facility] 2021-02-02 Emergency [facility] [id number] Univers 05:14:44 ity [facility] 2022-04-16 2022-04-16 (TEL) STLMLC STLMLC [id number] Co mmon 00:00:00 00:00:00 [facility] 2022-04-15 2022-04-15 Outpatient R RODOLFO, [facility] [id number] Univers 15:00:00 15:00:00 [facility] 2022-03-18 2022-03-18 Outpatient R RODOLFO, [facility] [id number] Univers 09:00:00 09:00:00 [facility] 2022-03-10 2022-03-10 Outpatient R RODOLFO, [facility] [id number] Univers 14:20:00 14:20:00 [facility] 2022-03-05 2022-03-05 (TEL) STLMLC STLMLC [id number] Co mmon 00:00:00 00:00:00 [facility] 2022-02-28 2022-02-28 (TEL) STLMLC STLMLC [id number] Co mmon 00:00:00 00:00:00 [facility] 2022-02-25 2022-02-25 [facility] [id number] Univers 16:50:00 20:22:00 [facility] 2022-02-25 2022-02-[address] [facility] [id number] Univers 16:50:00 20:22:00 Kurtis [place] [id number] i ty [facility] [id number] [facility] [phone] [place] 856704 [place] 2022-02-25 2022-02-25 (TEL) STLMLC STLMLC [id number] Co mmon 00:00:00 00:00:00 [facility] 2022-02-24 2022-02-24 (EST. STLMLC STLMLC [id number] Co mmon 00:00:00 00:00:00 VIDEO) EST Spi rit VIRTUAL - [facility] 2022-02-21 2022-02-21 (TEL) STLMLC STLMLC [id number] Co mmon 00:00:00 00:00:00 [facility] 2022-02-13 2022-02-13 (TEL) STLMLC STLMLC [id number] Co mmon 00:00:00 00:00:00 [facility] 2022-02-06 2022-02-06 Transition KEEGAN Thomas [id number] [facility] 00:00:00 00:00:00 of Care Gio Kline JORDANA [id number] ity of [place] [id number] [facility] [phone] [facility] [address] 2022-01-26 2022-02-05 Inpatient X TONIA [facility] [id number] Univers 09:52:00 17:20:00 MONI ity of [facility] 2022-01-26 2022-02-05 [facility] Enoc Ware Froylan [facility] [id number] Univers 09:52:00 17:20:00 Encounter Moni Randall [id number] ity of [place] [id number] [facility] [id number] [facility] 080 Branch 2022-01-27 2022-01-27 (TEL) STLMLC STLMLC [id number] Co mmon 00:00:00 00:00:00 [facility] 2022-01-17 2022-01-17 OFFICE STLMLC STLMLC [id number] Co mmon 00:00:00 00:00:00 VISIT Spirit ESTAB PT - [facility] LEVEL 4 [facility] 2022-01-17 2022-01-17 (TEL) STLMLC STLMLC [id number] Co mmon 00:00:00 00:00:00 [facility] 2022-01-15 2022-01-15 (TEL) STLMLC STLMLC [id number] Co mmon 00:00:00 00:00:00 [facility] 2021-09-19 2021-09-19 Outpatient R RODOLFO, [facility] [id number] Univers 13:20:00 13:20:00 [facility] 2021-09-19 2021-09-19 Outpatient R RODOLFO, [facility] [id number] Univers 13:20:00 13:20:00 ADRIANA bedoya [facility] 2021-08-23 2021-08-23 (TEL) STLMLC STLMLC [id number] Co mmon 00:00:00 00:00:00 [facility] 2021-08-04 2021-08-04 Emergency X [facility] ERT [id number] Univers 19:26:00 23:44:00 ZACHARY bedoya [facility] 2021-08-04 2021-08-04 Emergency [facility] [id number] Univers 19:26:00 23:44:00 Zachary [place] [id number] ity of [place] [id number] [facility] [phone] [place] 856704 Branch 2021-07-05 2021-07-05 OFFICE STLC STLC [id number] Co mmon 00:00:00 00:00:00 VISIT [facility] LEVEL 4 [facility] 2021-07-01 2021-07-01 (TEL) STLC STLC [id number] Co mmon 00:00:00 00:00:00 [facility] 2021-06-19 2021-06-19 [facility] [id number] Univers 15:20:00 15:51:15 ADRIANA bedoya [facility] 2021-06-19 2021-06-19 Office [facility] [id number] Univers 15:20:00 15:51:15 Visit [facility]ia [facility] DARION [id number] [id number] [phone] Id dical [facility] 0[address] [facility] 2021-06-19 2021-06-19 Outpatient Deanna REYNOLDS [facility] [id number] Univers 15:20:00 15:51:15 ADRIANA ity o f [facility] 2021-06-19 2021-06-19 Orders Doctor QUEENIE [id number] Univers 00:00:00 00:00:00 Only Unassigned, ROLAN [id number] [facility] [id number] Louie as [phone] [address] 2021-06-11 2021-06-11 (TEL) STLC STLMLC [id number] Co mmon 00:00:00 00:00:00 [facility] 2021-06-03 2021-06-03 Orders Doctor QUEENIE [id number] Univers 00:00:00 00:00:00 Only Unassigned, ROLAN [id number] [facility] [id number] Louie as [phone] [address] 2021-05-23 2021-05-23 OFFICE STLMLC STLC [id number] Co mmon 00:00:00 00:00:00 VISIT [facility] LEVEL 5 [facility] 2021-05-21 2021-05-21 (TEL) STLC STLMLC [id number] Co mmon 00:00:00 00:00:00 [facility] 2021-05-16 2021-05-16 (TEL) STLMLC STLMLC [id number] Co mmon 00:00:00 00:00:00 [facility] 2021-04-27 2021-05-03 Inpatient MARCUS [facility] [id number] [place] [address] 00:00:00 00:00:00 SERGEY [facility] 2021-05-02 2021-05-02 (TEL) STLC STLMLC [id number] Co mmon 00:00:00 00:00:00 [facility] 2021-04-26 2021-04-26 (TEL) STLMLC STLMLC [id number] Co mmon 00:00:00 00:00:00 [facility] 2021-03-11 2021-03-11 OFFICE STLMLC STLMLC [id number] Co mmon 00:00:00 00:00:00 VISIT [facility] 4 [facility] 2021-02-20 2021-02-20 (WEB) STLMLC STLMLC [id number] Co mmon 00:00:00 00:00:00 [facility] 2021-02-20 2021-02-20 (WEB) STLMLC STLMLC [id number] Co mmon 00:00:00 00:00:00 [facility] 2021-02-13 2021-02-13 (TEL) STLMLC STLMLC [id number] Co mmon 00:00:00 00:00:00 [facility] 2021-02-07 2021-02-07 (WEB) STLMLC STLMLC [id number] Co mmon 00:00:00 00:00:00 [facility] 2021-02-07 2021-02-07 (TEL) STLMLC STLMLC [id number] Co mmon 00:00:00 00:00:00 [facility] 2021-02-07 2021-02-07 (TEL) STLMLC STLMLC [id number] Co mmon 00:00:00 00:00:00 [facility] 2021-01-28 2021-01-28 (WEB) STLMLC STLMLC [id number] Co mmon 00:00:00 00:00:00 [facility] 2021-01-25 2021-01-25 (HOSP F/U) STLMLC STLMLC [id number] Common 00:00:00 00:00:00 [facility] 2021-01-23 2021-01-23 (TEL) STLMLC STLMLC [id number] Co mmon 00:00:00 00:00:00 [facility] 2021-01-18 2021-01-18 (TEL) STLMLC STLMLC [id number] Co mmon 00:00:00 00:00:00 [facility] 2021-01-11 2021-01-17 Inpatient DANYELLE [facility] [id number] [place] 00:00:00 00:00:00 PRITESHRaisa MelissaBennie [facility] 2021-01-16 2021-01-16 (TEL) STLMLC STLMLC [id number] Co mmon 00:00:00 00:00:00 [facility] 2021-01-16 2021-01-16 (TEL) STLMLC STLMLC [id number] Co mmon 00:00:00 00:00:00 [facility] 2021-01-14 2021-01-14 (TEL) STLMLC STLMLC [id number] Co mmon 00:00:00 00:00:00 [facility] 2021-01-04 2021-01-11 [facility] Ritika Zaldivar [facility] [id number] Univers 06:09:00 15:41:[address] [facility] [id number] .10 itKishore Cason [id number] Abiola Vasquez [phone] [address] ([facility]) 2021-01-04 2021-01-11 Inpatient [facility] [id number] Univers 06:09:00 15:41:00 ABIOLA bedoya [facility] 2020-12-25 2020-12-25 (TEL) STLMLC STLMLC [id number] Co mmon 00:00:00 00:00:00 [facility] 2020-12-06 2020-12-06 (TEL) STLMLC STLMLC [id number] Co mmon 00:00:00 00:00:00 [facility] 2020-11-08 2020-11-08 (TEL) STLMLC STLMLC [id number] Co mmon 00:00:00 00:00:00 [facility] 2020-11-05 2020-11-05 OFFICE STLMLC STLMLC [id number] Co mmon 00:00:00 00:00:00 VISIT [facility] PT - [facility] LEVEL 4 [facility] 2020-10-10 2020-10-10 (TEL) STLMLC STLMLC [id number] Co mmon 00:00:00 00:00:00 [facility] 2020-09-26 2020-09-26 OFFICE STLMLC STLMLC [id number] Co mmon 00:00:00 00:00:00 VISIT [facility] PT [facility] LEVEL 4 [facility] 2020-09-25 2020-09-25 (TEL) STLMLC STLMLC [id number] Co mmon 00:00:00 00:00:00 [facility] 2020-09-20 2020-09-20 (TEL) STLMLC STLMLC [id number] Co mmon 00:00:00 00:00:00 [facility] 2020-09-18 2020-09-18 (TEL) STLMLC STLMLC [id number] Co mmon 00:00:00 00:00:00 [facility] 2020-09-05 2020-09-05 (TEL) STLMLC STLMLC [id number] Co mmon 00:00:00 00:00:00 [facility] 2020-05-31 2020-05-31 Outpatient STLMLC STLMLC [id number] Common 00:00:00 00:00:00 [facility] 2020-05-29 2020-05-29 Outpatient STLMLC STLMLC [id number] Common 00:00:00 00:00:00 [facility] 2020-05-24 2020-05-24 Outpatient STLMLC STLMLC [id number] Common 00:00:00 00:00:00 [facility] 2020-05-08 2020-05-08 Outpatient STLMLC STLMLC [id number] Common 00:00:00 00:00:00 [facility] 2020-05-08 2020-05-08 Outpatient STLMLC STLMLC [id number] Common 00:00:00 00:00:00 [facility] 2020-03-05 2020-03-05 Outpatient STLMLC STLMLC [id number] Common 00:00:00 00:00:00 [facility] 2020-02-20 2020-02-20 Outpatient STLMLC STLMLC [id number] Common 00:00:00 00:00:00 [facility] 2020-02-17 2020-02-17 Mansi Harkins [id number] Univers 00:00:00 00:00:00 (Out) ROLAN [id number] [facility] [id number] [facility] [phone] [facility] 0[address] 2020-02-17 2020-02-17 Outpatient STLMLC STLMLC [id number] Common 00:00:00 00:00:00 [facility] 2020-02-16 2020-02-16 Emergency Kristian, K [facility] [id number] [id number] Univers 18:59:00 19:42:00 Melida [place] [id number] i [facility] [id number] [facility] [phone] [facility] 084 [address] 2020-01-26 2020-01-26 Outpatient STLMLC STLMLC [id number] Common 00:00:00 00:00:00 [facility] 2020-01-20 2020-01-20 Outpatient STLMLC STLMLC [id number] Common 00:00:00 00:00:00 [facility] 2019-10-20 2019-10-20 [facility] [id number] Common 13:45:00 13:45:00 [address] [facility] [address] [facility] 2019-09-20 2019-09-20 Out[facility] [id number] Common 15:15:00 15:15:00 [facility] [address] [facility] 2019-05-12 2019-05-12 Out[facility] [id number] Common 11:00:00 11:00:[address] [facility] 2019-05-04 2019-05-04 Outpatient [facility] [id number] Common 16:41:00 16:41:[address] [facility] 2019-04-19 2019-04-19 Out[facility] [id number] Common 16:43:00 16:43:[address] [facility] 2019-02-21 2019-02-21 Out[facility] [id number] Common 08:45:00 08:45:[address] [facility] 2019-02-17 2019-02-17 Out[facility] [id number] Common 10:11:00 10:11:[address] [facility] 2019-02-14 2019-02-14 Out[facility] [id number] Common 16:38:00 16:38:[address] [facility] 2019-02-07 2019-02-07 Out[facility] [id number] Common 10:00:00 10:00:00 [facility] 2018-12-31 2018-12-31 Out[facility] [id number] Common 11:29:00 11:29:[address] [facility] 2018-12-24 2018-12-24 Out[facility] [id number] Common 10:19:00 10:19:[address] [facility] 2018-12-23 2018-12-23 Out[facility] [id number] Common 08:53:00 08:53:[address] [facility] 2018 2018 Out[facility] [id number] Common 08:30:00 08:30:[address] [facility] 2018-12-20 2018-12-20 Out[facility] [id number] Common 16:22:00 16:22:[address] [facility] 2018-12-20 2018-12-20 Out[facility] [id number] Common 13:42:00 13:42:[address] [facility] 2018-12-09 2018-12-16 Inpatient [place] [id number] [place] 00:00:00 00:00:00 ZOFIA [address] 2018-12-14 2018-12-14 Out[facility] [id number] Common 14:52:00 14:52:[address] [facility] 2018-12-14 2018-12-14 Out[facility] [id number] Common 14:13:00 14:13:[address] [facility] 2018-12-02 2018-12-02 Out[facility] [id number] Common 13:53:00 13:53:[address] [facility] 2018-11-02 2018-11-02 Outpatient [facility] [id number] Common 16:37:00 16:37:[address] [facility] 2018-11-02 2018-11-02 Orders Doctor QUEENIE [id number] [id number] Univers 00:00:00 00:00:00 Only Unassigned, ROLAN [id number] ity of [place] [facility] [id number] Louie as [phone] [address] 2018-11-02 2018-11-02 Orders Doctor QUEENIE Lake2.840.114 [id number] 00:00:00 00:00:00 Only Unassigned, ROLAN [id number] [place] [facility] [id number] [id number] [facility] 2018-10-27 2018-10-27 Outpatient [facility] [id number] Common 13:31:00 13:31:[address] [facility] 2018-10-13 2018-10-13 Out[facility] [id number] Common 13:30:00 13:30:[address] [facility] 2018-09-28 2018-09-28 Outpatient [facility] [id number] Common 10:13:00 10:13:[address] [facility] 2018-09-15 2018-09-15 Outpatient [facility] [id number] Common 13:49:00 13:49:[address] [facility] 2018-08-11 2018-08-11 Outpatient [facility] [id number] Common 08:00:00 08:00:[address] [facility] 2018-08-03 2018-08-03 Out[facility] [id number] Common 15:36:00 15:36:[address] [facility] 2018-07-23 2018-07-23 Outpatient [facility] [id number] Common 10:31:00 10:31:[address] [facility] 2018-07-21 2018-07-21 Outpatient [facility] [id number] Common 14:46:00 14:46:[address] [facility] 2018-07-14 2018-07-14 Outpatient [facility] [id number] Common 16:45:00 16:45:[address] [facility] 2018-07-01 2018-07-01 Outpatient [facility] [id number] Common 09:58:00 09:58:[address] [facility] 2018-06-17 2018-06-17 Outpatient [facility] [id number] Common 16:00:00 16:00:[address] [facility] 2018-06-10 2018-06-10 Outpatient [facility] [id number] Common 15:56:00 15:56:[address] [facility] 2018-06-08 2018-06-08 Outpatient [facility] [id number] Common 10:30:00 10:30:[address] [facility] 2018-05-31 2018-05-31 Outpatient [facility] [id number] Common 14:12:00 14:12:[address] [facility] 2018-05-27 2018-05-27 Outpatient [facility] [id number] Common 11:15:00 11:15:[address] [facility] 2018-04-22 2018-04-22 Outpatient [facility] [id number] Common 11:00:00 11:00:[address] [facility] 2018-04-07 2018-04-07 Outpatient [facility] [id number] Common 11:30:00 11:30:[address] [facility] 2018-01-14 2018-01-14 Outpatient [facility] [id number] Common 10:30:00 10:30:[address] [facility] 2018-01-11 2018-01-11 Outpatient [facility] [id number] Common 15:55:00 15:55:[address] [facility] 2017-11-18 2017-11-18 Outpatient [facility] [id number] Common 15:30:00 15:30:[address] [facility] 2017-10-19 2017-10-19 Outpatient [facility] [id number] Common 16:08:00 16:08:[address] [facility] 2017-10-15 2017-10-15 Outpatient Elina Whitman [id number] Common 10:30:00 10:30:[address] [facility] 2017-07-09 2017-07-09 Outpatient Elina Whitman [id number] Common 10:39:00 10:39:[address] [facility] 2017-07-01 2017-07-01 Outpatient Elina Whitman [id number] Common 11:00:00 11:00:[address] [facility] Results Test Description Test Time Test Comments Results Result Comments Source BASIC METABOLIC PANEL (NA, K, CL, CO2, GLUCOSE, BUN, 2022-02 00:02:06 CREATININE, [place]) Test Item Value Reference Range Interpretation Comme nts NA (test code = 6952539555) 139 mmol/L 135-145 K (test code = 9865160584) 3.7 mmol/L 3.5-5.0 CL (test code = 0967613062) 99 mmol/L 98-108 CO2 TOTAL (test code = 9170581277) 30 mmol/L 23-31 AGAP (test code = 5855198185) 2-16 BUN (test code = 1751479386) 15 mg/dL 7-23 GLUCOSE (test code = 0631621999) 111 mg/dL 70-110 H CREATININE (test code = 0.61 mg/dL 0.50-1.04 [id number]) CALCIUM (test code = 8212160258) 8.4 mg/dL 8.6-10.6 L eGFR (test code = 0658008518) mL/min/1.73m2 RANDOLPH (test code = RANDOLPH) Association [...] tests). Lab Interpretation (test code = Abnormal 52307-5) [facility] WITH [id number] 23:49:02 Test Item Value Reference Range Interpretation Comments WBC (test code = See_Comment [Automated 1108-2) message] The sy stem which generated this result transmitted reference range : 4.30 - 11.10 10*3/?L. The reference range was not used to interpret this result as normal/abnormal . RBC (test code = See_Comment [Automated 982-8) message] The sy stem which generated this [...] RDW-SD (test code = 48.0 fL 39.0-49.9 69102-0) RDW-CV (test code = 15.6 % 12.0-15.5 H 788-0) PLT (test code = See_Comment [Automated 777-3) message] The sy stem which generated this result transmitted reference range : 166 - 358 10*3/ ?L. The reference r angel was not used to interpret this result as normal/abnormal . MPV (test code = 9.9 fL 9.5-12.9 83962-1) NRBC/100 WBC (test See_Comment [Automat ed code = 6896112482) message] The system which generated this result transmitted reference range : 0.0 - 10.0 /100 WBCs. The refer ence range was not u sed to interpret th is result as normal/abnormal . NRBC x10^3 (test code See_Comment [Auto mated = 8661654014) message] The s ystem which generated this result transmitted reference range : 10*3/?L. The reference range was not used to interpret this result as normal/abnormal . GRAN MAT (NEUT) % 62.8 % (test code = 770-8) IMM GRAN % (test code 0.20 % = 2203411805) LYMPH % (test code = 25.2 % 736-9) MONO % (test code = 8.5 % 5905-5) EOS % (test code = 3.0 % 713-8) BASO % (test code = 0.3 % 706-2) GRAN MAT x10^3(ANC) 3.94 10*3/uL 1.88-7.09 (test code = 7819607684) IMM GRAN x10^3 (test 0.00-0.06 code = 4298832645) LYMPH x10^3 (test code 1.58 10*3/uL 1.32-3.29 = 731-0) MONO x10^3 (test code 0.53 10*3/uL 0.33-0.92 = 742-7) EOS x10^3 (test code = 0.19 10*3/uL 0.03-0.39 711-2) BASO x10^3 (test code 0.01-0.07 = 704-7) Lab Interpretation Abnormal (test code = 28784-0) [facility] GLUCOSE (AUTOMATED)2022-02-25 23:09:46 Test Item Value Reference Range Interpretation Comments POCT GLU (test code = 9611501537) 128 mg/dL 70-110 H Lab Interpretation (test code = Abnormal 61193-2) [facility] GLUCOSE (AUTOMATED)2022-02-05 22:00:25 Test Item Value Reference Range Interpretation Comments POCT GLU (test code = 5403512925) 187 mg/dL 70-110 H Lab Interpretation (test code = Abnormal 80206-7) [facility] GLUCOSE (AUTOMATED)2022-02-05 16:31:40 Test Item Value Reference Range Interpretation Comments POCT GLU (test code = 0906995498) 91 mg/dL 70-110 Lab Interpretation (test code = Normal 56528-6) [facility] GLUCOSE (AUTOMATED)2022-02-05 12:59:16 Test Item Value Reference Range Interpretation Comments POCT GLU (test code = 6373697744) 249 mg/dL 70-110 H Lab Interpretation (test code = Abnormal 76608-2) [facility] GLUCOSE (AUTOMATED)2022-02-05 02:13:50 Test Item Value Reference Range Interpretation Comments POCT GLU (test code = 0983357548) 117 mg/dL 70-110 H Lab Interpretation (test code = Abnormal 85407-3) [facility] GLUCOSE (AUTOMATED)2022-02-04 21:29:42 Test Item Value Reference Range Interpretation Comments POCT GLU (test code = 8126651444) 200 mg/dL 70-110 H Lab Interpretation (test code = Abnormal 05839-2) [facility] GLUCOSE (AUTOMATED)2022-02-04 16:53:26 Test Item Value Reference Range Interpretation Comments POCT GLU (test code = 4402814283) 134 mg/dL 70-110 H Lab Interpretation (test code = Abnormal 88766-5) [facility] GLUCOSE (AUTOMATED)2022-02-04 12:50:59 Test Item Value Reference Range Interpretation Comments POCT GLU (test code = 7862496028) 129 mg/dL 70-110 H Lab Interpretation (test code = Abnormal 13721-2) [facility] GLUCOSE (AUTOMATED)2022-02-04 01:30:16 Test Item Value Reference Range Interpretation Comments POCT GLU (test code = 4820209484) 125 mg/dL 70-110 H Lab Interpretation (test code = Abnormal 73441-2) [facility] GLUCOSE (AUTOMATED)2022-02-03 17:25:06 Test Item Value Reference Range Interpretation Comments POCT GLU (test code = 2485561088) 140 mg/dL 70-110 H Lab Interpretation (test code = Abnormal 47003-4) [facility] GLUCOSE (AUTOMATED)2022-02-03 13:31:16 Test Item Value Reference Range Interpretation Comments POCT GLU (test code = 0572036870) 130 mg/dL 70-110 H Lab Interpretation (test code = Abnormal 56287-3) [facility] GLUCOSE (AUTOMATED)2022-02-03 13:26:28 Test Item Value Reference Range Interpretation Comments POCT GLU (test code = 9309542306) 116 mg/dL 70-110 H Lab Interpretation (test code = Abnormal 40362-3) [facility] GLUCOSE (AUTOMATED)2022-02-03 13:26:17 Test Item Value Reference Range Interpretation Comments POCT GLU (test code = 6012870918) 140 mg/dL 70-110 H Lab Interpretation (test code = Abnormal 37544-1) [facility] GLUCOSE (AUTOMATED)2022-02-03 13:26:17 Test Item Value Reference Range Interpretation Comments POCT GLU (test code = 1590915915) 115 mg/dL 70-110 H Lab Interpretation (test code = Abnormal 38424-8) [id number] 11:16:22 Test Item Value Reference Range Interpretation Comments NT-proBNP (test code 302 pg/mL See_Comment H [Autom ated = 3313066862) message] The system which generated this result transmitted reference range : <=125. The reference range was not used to interpret this result as normal/abnormal . RANDOLPH (test code = RANDOLPH) Biotin has been reported to cause a negative bias, interpret results relative to patient's use of biotin. Lab Interpretation Abnormal (test code = 41230-6) [facility] METABOLIC PANEL (NA, K, CL, CO2, GLUCOSE, BUN, CREATININE, CA)2022-02-03 11:14:42 Test Item Value Reference Range Interpretation Comments NA (test code = 135 mmol/L 135-145 7078981075) K (test code = 4.0 mmol/L 3.5-5.0 5079421464) CL (test code = 89 mmol/L 98-108 L 1369996107) CO2 TOTAL (test code = 38 mmol/L 23-31 H 3034803104) AGAP (test code = 2-16 5843439251) BUN (test code = 34 mg/dL 7-23 H 6538183471) GLUCOSE (test code = 126 mg/dL 70-110 H 1756446089) CREATININE (test code = 0.65 mg/dL 0.50-1.04 5589678156) CALCIUM (test code = 9.2 mg/dL 8.6-10.6 8617066514) eGFR (test code = mL/min/1.73m2 6482132613) RANDOLPH (test code = RANDOLPH) Association of [...] tests). Lab Interpretation Abnormal (test code = 31690-4) [facility] 11:08:04 Test Item Value Reference Range Interpretation Comments MAGNESIUM (test code = 9007272256) 2.1 mg/dL 1.7-2.4 Lab Interpretation (test code = Normal 64505-7) [facility] GLUCOSE (AUTOMATED)2022-02-03 01:41:51 Test Item Value Reference Range Interpretation Comments POCT GLU (test code = 3584636218) 166 mg/dL 70-110 H Lab Interpretation (test code = Abnormal 00064-6) [facility] GLUCOSE (AUTOMATED)2022-02-02 23:09:29 Test Item Value Reference Range Interpretation Comments POCT GLU (test code = 0203133281) 129 mg/dL 70-110 H Lab Interpretation (test code = Abnormal 66249-8) [facility] GLUCOSE (AUTOMATED)2022-02-02 16:46:52 Test Item Value Reference Range Interpretation Comments POCT GLU (test code = 6597832682) 144 mg/dL 70-110 H Lab Interpretation (test code = Abnormal 38363-4) [facility] [id number] 10:19:50 Test Item Value Reference Range Interpretation Comments NT-proBNP (test code 366 pg/mL See_Comment H [Autom ated = 0247953490) message] The system which generated this result transmitted reference range : <=125. The reference range was not used to interpret this result as normal/abnormal . RANDOLPH (test code = RANDOLPH) Biotin has been reported to cause a negative bias, interpret results relative to patient's use of biotin. Lab Interpretation Abnormal (test code = 59473-1) [facility] METABOLIC PANEL (NA, K, CL, CO2, GLUCOSE, BUN, CREATININE, CA)2022-02-02 10:18:14 Test Item Value Reference Range Interpretation Comments NA (test code = 137 mmol/L 135-145 6440225824) K (test code = 3.8 mmol/L 3.5-5.0 8612154866) CL (test code = 91 mmol/L 98-108 L 5257935461) CO2 TOTAL (test code = 39 mmol/L 23-31 H 6706546281) AGAP (test code = 2-16 5955583998) BUN (test code = 34 mg/dL 7-23 H 6937890885) GLUCOSE (test code = 111 mg/dL 70-110 H 1714458641) CREATININE (test code = 0.68 mg/dL 0.50-1.04 1456500418) CALCIUM (test code = 9.0 mg/dL 8.6-10.6 4098335576) eGFR (test code = mL/min/1.73m2 4525447727) RANDOLPH (test code = RANDOLPH) Association of [...] tests). Lab Interpretation Abnormal (test code = 13687-3) [facility] 10:11:50 Test Item Value Reference Range Interpretation Comments MAGNESIUM (test code = 0528043483) 2.0 mg/dL 1.7-2.4 Lab Interpretation (test code = Normal 38829-3) [facility] WITH [id number] 09:54:06 Test Item Value Reference Range Interpretation [...] RDW-SD (test code = 47.7 fL 39.0-49.9 50273-9) RDW-CV (test code = 15.9 % 12.0-15.5 H 788-0) PLT (test code = See_Comment [Automated 777-3) message] The sy stem which generated this result transmitted reference range : 166 - 358 10*3/ ?L. The reference r angel was not used to interpret this result as normal/abnormal . MPV (test code = 11.2 fL 9.5-12.9 20766-5) NRBC/100 WBC (test See_Comment [Automat ed code = 8305727651) message] The system which generated this result transmitted reference range : 0.0 - 10.0 /100 WBCs. The refer ence range was not u sed to interpret th is result as normal/abnormal . NRBC x10^3 (test code See_Comment [Auto mated = 4003219948) message] The s ystem which generated this result transmitted reference range : 10*3/?L. The reference range was not used to interpret this result as normal/abnormal . GRAN MAT (NEUT) % 63.2 % (test code = 770-8) IMM GRAN % (test code 0.40 % = 3925513877) LYMPH % (test code = 22.1 % 736-9) MONO % (test code = 8.9 % 5905-5) EOS % (test code = 5.1 % 713-8) BASO % (test code = 0.3 % 706-2) GRAN MAT x10^3(ANC) 6.63 10*3/uL 1.88-7.09 (test code = 0141131641) IMM GRAN x10^3 (test 0.04 10*3/uL 0.00-0.06 code = 1017288040) LYMPH x10^3 (test code 2.31 10*3/uL 1.32-3.29 = 731-0) MONO x10^3 (test code 0.93 10*3/uL 0.33-0.92 H = 742-7) EOS x10^3 (test code = 0.53 10*3/uL 0.03-0.39 H 711-2) BASO x10^3 (test code 0.03 10*3/uL 0.01-0.07 = 704-7) Lab Interpretation Abnormal (test code = 64482-3) [facility] GLUCOSE (AUTOMATED)2022-02-02 05:21:43 Test Item Value Reference Range Interpretation Comments POCT GLU (test code = 7446413708) 129 mg/dL 70-110 H Lab Interpretation (test code = Abnormal 29735-2) [facility] GLUCOSE (AUTOMATED)2022-02-01 12:39:39 Test Item Value Reference Range Interpretation Comments POCT GLU (test code = 3901180817) 108 mg/dL 70-110 Lab Interpretation (test code = Normal 58391-1) [facility] GLUCOSE (AUTOMATED)2022-02-01 12:37:02 Test Item Value Reference Range Interpretation Comments POCT GLU (test code = 4022152367) 116 mg/dL 70-110 H Lab Interpretation (test code = Abnormal 22359-0) [facility] GLUCOSE (AUTOMATED)2022-02-01 02:11:26 Test Item Value Reference Range Interpretation Comments POCT GLU (test code = 1531134171) 155 mg/dL 70-110 H Lab Interpretation (test code = Abnormal 93408-4) [facility] GLUCOSE (AUTOMATED)2022-01-31 22:09:48 Test Item Value Reference Range Interpretation Comments POCT GLU (test code = 1252511743) 152 mg/dL 70-110 H Lab Interpretation (test code = Abnormal 68502-8) [facility] GLUCOSE (AUTOMATED)2022-01-31 16:41:00 Test Item Value Reference Range Interpretation Comments POCT GLU (test code = 1111298033) 123 mg/dL 70-110 H Lab Interpretation (test code = Abnormal 19253-1) [facility] GLUCOSE (AUTOMATED)2022-01-31 16:09:25 Test Item Value Reference Range Interpretation Comments POCT GLU (test code = 7729910938) 114 mg/dL 70-110 H Lab Interpretation (test code = Abnormal 50271-7) [facility] GLUCOSE (AUTOMATED)2022-01-31 01:19:02 Test Item Value Reference Range Interpretation Comments POCT GLU (test code = 4522987255) 121 mg/dL 70-110 H Lab Interpretation (test code = Abnormal 83018-5) [facility] GLUCOSE (AUTOMATED)2022-01-30 21:34:59 Test Item Value Reference Range Interpretation Comments POCT GLU (test code = 5907215777) 150 mg/dL 70-110 H Lab Interpretation (test code = Abnormal 79292-6) [facility] GLUCOSE (AUTOMATED)2022-01-30 16:40:10 Test Item Value Reference Range Interpretation Comments POCT GLU (test code = 6875356792) 148 mg/dL 70-110 H Lab Interpretation (test code = Abnormal 10110-4) [facility] GLUCOSE (AUTOMATED)2022-01-30 08:22:26 Test Item Value Reference Range Interpretation Comments POCT GLU (test code = 2355552725) 226 mg/dL 70-110 H Lab Interpretation (test code = Abnormal 16508-7) [facility]2022-01-30 03:21:23 Test Item Value Reference Range Interpretation Comments POCT GLU (test code = 0136395325) 153 mg/dL 70-110 H Lab Interpretation (test code = Abnormal 99426-7) [facility] GLUCOSE (AUTOMATED)2022-01-30 01:36:53 Test Item Value Reference Range Interpretation Comments POCT GLU (test code = 9105104063) 206 mg/dL 70-110 H Lab Interpretation (test code = Abnormal 08915-4) [facility] GLUCOSE (AUTOMATED)2022-01-29 21:50:18 Test Item Value Reference Range Interpretation Comments POCT GLU (test code = 0839700776) 173 mg/dL 70-110 H Lab Interpretation (test code = Abnormal 79949-5) [facility] GLUCOSE (AUTOMATED)2022-01-29 16:43:39 Test Item Value Reference Range Interpretation Comments POCT GLU (test code = 2710143745) 132 mg/dL 70-110 H Lab Interpretation (test code = Abnormal 38005-6) [facility] GLUCOSE (AUTOMATED)2022-01-29 12:55:52 Test Item Value Reference Range Interpretation Comments POCT GLU (test code = 7461363987) 117 mg/dL 70-110 H Lab Interpretation (test code = Abnormal 88900-0) [facility] METABOLIC PANEL (NA, K, CL, CO2, GLUCOSE, BUN, CREATININE, CA)2022-01-29 11:13:26 Test Item Value Reference Range Interpretation Comments NA (test code = 138 mmol/L 135-145 3080971699) K (test code = 3.8 mmol/L 3.5-5.0 3691401151) CL (test code = 95 mmol/L 98-108 L 1452020480) CO2 TOTAL (test code = 39 mmol/L 23-31 H 9228809295) AGAP (test code = 2-16 1589861742) BUN (test code = 34 mg/dL 7-23 H 0058432246) GLUCOSE (test code = 109 mg/dL 70-110 1393147876) CREATININE (test code = 0.61 mg/dL 0.50-1.04 3770475185) CALCIUM (test code = 8.5 mg/dL 8.6-10.6 L 0317929477) eGFR (test code = mL/min/1.73m2 9776585273) RANDOLPH (test code = RANDOLPH) Association of [...] tests). Lab Interpretation Abnormal (test code = 82187-5) [facility] WITH [id number] 09:22:52 Test Item Value Reference Range Interpretation Comments WBC (test code = See_Comment [Automated 7785-2) message] The sy stem which generated this result transmitted reference range : 4.30 - 11.10 10*3/?L. The reference range was not used to interpret this result as normal/abnormal . RBC (test code = See_Comment [Automated 933-8) message] The sy stem which generated this [...] (test code = 50.2 fL 39.0-49.9 H 01058-4) RDW-CV (test code = 16.3 % 12.0-15.5 H 788-0) PLT (test code = See_Comment [Automated 777-3) message] The sy stem which generated this result transmitted reference range : 166 - 358 10*3/ ?L. The reference r angel was not used to interpret this result as normal/abnormal . MPV (test code = 10.4 fL 9.5-12.9 97116-6) NRBC/100 WBC (test See_Comment [Automat ed code = 3392662067) message] The system which generated this result transmitted reference range : 0.0 - 10.0 /100 WBCs. The refer ence range was not u sed to interpret th is result as normal/abnormal . NRBC x10^3 (test code See_Comment [Auto mated = 5301911884) message] The s ystem which generated this result transmitted reference range : 10*3/?L. The reference range was not used to interpret this result as normal/abnormal . GRAN MAT (NEUT) % 61.7 % (test code = 770-8) IMM GRAN % (test code 0.30 % = 2990483034) LYMPH % (test code = 27.7 % 736-9) MONO % (test code = 9.8 % 5905-5) EOS % (test code = 0.4 % 713-8) BASO % (test code = 0.1 % 706-2) GRAN MAT x10^3(ANC) 4.87 10*3/uL 1.88-7.09 (test code = 6724863601) IMM GRAN x10^3 (test 0.00-0.06 code = 8439003410) LYMPH x10^3 (test code 2.18 10*3/uL 1.32-3.29 = 731-0) MONO x10^3 (test code 0.77 10*3/uL 0.33-0.92 = 742-7) EOS x10^3 (test code = 0.03 10*3/uL 0.03-0.39 711-2) BASO x10^3 (test code 0.01-0.07 = 704-7) Lab Interpretation Abnormal (test code = 58626-6) [facility] GLUCOSE (AUTOMATED)2022-01-29 01:24:49 Test Item Value Reference Range Interpretation Comments POCT GLU (test code = 6199499515) 131 mg/dL 70-110 H Lab Interpretation (test code = Abnormal 66789-1) [facility] GLUCOSE (AUTOMATED)2022-01-28 21:48:35 Test Item Value Reference Range Interpretation Comments POCT GLU (test code = 5352398499) 141 mg/dL 70-110 H Lab Interpretation (test code = Abnormal 24050-6) [facility] GLUCOSE (AUTOMATED)2022-01-28 17:09:49 Test Item Value Reference Range Interpretation Comments POCT GLU (test code = 7406622900) 191 mg/dL 70-110 H Lab Interpretation (test code = Abnormal 11547-5) [facility] GLUCOSE (AUTOMATED)2022-01-28 16:47:25 Test Item Value Reference Range Interpretation Comments POCT GLU (test code = 8481138773) 118 mg/dL 70-110 H Lab Interpretation (test code = Abnormal 03322-0) [facility]2022-01-28 02:27:41 Test Item Value Reference Range Interpretation Comments HGB A1C (test code = 6.0 % 4.0-5.7 H 4548-4) RANDOLPH (test code = RANDOLPH) Reference RangesNormal: <5.7%Prediabetes: 5.7 - 6.4%Diabetes: > 6.5% Lab Interpretation (test Abnormal code = 91179-1) [facility] GLUCOSE (AUTOMATED)2022-01-28 01:27:30 Test Item Value Reference Range Interpretation Comments POCT GLU (test code = 9325957439) 164 mg/dL 70-110 H Lab Interpretation (test code = Abnormal 54426-3) [facility] GLUCOSE (AUTOMATED)2022-01-27 21:25:26 Test Item Value Reference Range Interpretation Comments POCT GLU (test code = 3913932875) 149 mg/dL 70-110 H Lab Interpretation (test code = Abnormal 45766-1) [facility] GLUCOSE (AUTOMATED)2022-01-27 18:11:58 Test Item Value Reference Range Interpretation Comments POCT GLU (test code = 4073183589) 159 mg/dL 70-110 H Lab Interpretation (test code = Abnormal 12110-8) [facility] GLUCOSE (AUTOMATED)2022-01-27 12:22:16 Test Item Value Reference Range Interpretation Comments POCT GLU (test code = 9782555229) 160 mg/dL 70-110 H Lab Interpretation (test code = Abnormal 82430-4) [facility] [id number] 10:30:32 Test Item Value Reference Range Interpretation Comments NT-proBNP (test code 2640 pg/mL See_Comment H [Autom ated = 9631916625) message] The system which generated this result transmitted reference range : <=125. The reference range was not used to interpret this result as normal/abnormal . RANDOLPH (test code = RANDOLPH) Biotin has been reported to cause a negative bias, interpret results relative to patient's use of biotin. Lab Interpretation Abnormal (test code = 73461-3) [facility] METABOLIC PANEL (NA, K, CL, CO2, GLUCOSE, BUN, CREATININE, CA)2022-01-27 10:21:33 Test Item Value Reference Range Interpretation Comments NA (test code = 142 mmol/L 135-145 1338646427) K (test code = 4.6 mmol/L 3.5-5.0 6685963292) CL (test code = 97 mmol/L 98-108 L 9931703998) CO2 TOTAL (test code = 36 mmol/L 23-31 H 7619025866) AGAP (test code = 2-16 4566640243) BUN (test code = 25 mg/dL 7-23 H 0449111491) GLUCOSE (test code = 153 mg/dL 70-110 H 6346462594) CREATININE (test code = 0.50 mg/dL 0.50-1.04 3574628591) CALCIUM (test code = 8.9 mg/dL 8.6-10.6 3920773783) eGFR (test code = mL/min/1.73m2 0812694115) RANDOLPH (test code = RANDOLPH) Association of [...] tests). Lab Interpretation Abnormal (test code = 91902-2) [facility]-24 10:21:33 Test Item Value Reference Range Interpretation Comments MAGNESIUM (test code = 8955479486) 1.9 mg/dL 1.7-2.4 Lab Interpretation (test code = Normal 86988-9) [facility] WITH [id number] 10:18:11 Test Item Value Reference Range Interpretation Comments WBC (test code = See_Comment L [Automated 9090-2) message] The sy stem which generated this result transmitted reference range : 4.30 - 11.10 10*3/?L. The reference range was not used to interpret this result as normal/abnormal . RBC (test code = See_Comment [Automated 949-8) message] The sy stem which generated this [...] (test code = 51.7 fL 39.0-49.9 H 85055-4) RDW-CV (test code = 16.3 % 12.0-15.5 H 788-0) PLT (test code = See_Comment [Automated 777-3) message] The sy stem which generated this result transmitted reference range : 166 - 358 10*3/ ?L. The reference r angel was not used to interpret this result as normal/abnormal . MPV (test code = 10.1 fL 9.5-12.9 00870-3) NRBC/100 WBC (test See_Comment [Automat ed code = 9404610620) message] The system which generated this result transmitted reference range : 0.0 - 10.0 /100 WBCs. The refer ence range was not u sed to interpret th is result as normal/abnormal . NRBC x10^3 (test code See_Comment [Auto mated = 4211841960) message] The s ystem which generated this result transmitted reference range : 10*3/?L. The reference range was not used to interpret this result as normal/abnormal . GRAN MAT (NEUT) % 84.0 % (test code = 770-8) IMM GRAN % (test code 0.50 % = 3220599309) LYMPH % (test code = 13.8 % 736-9) MONO % (test code = 1.7 % 5905-5) EOS % (test code = 0.0 % 713-8) BASO % (test code = 0.0 % 706-2) GRAN MAT x10^3(ANC) 3.54 10*3/uL 1.88-7.09 (test code = 0571350245) IMM GRAN x10^3 (test 0.00-0.06 code = 0971243458) LYMPH x10^3 (test code 0.58 10*3/uL 1.32-3.29 L = 731-0) MONO x10^3 (test code 0.07 10*3/uL 0.33-0.92 L = 742-7) EOS x10^3 (test code = 0.03-0.39 L 711-2) BASO x10^3 (test code 0.01-0.07 = 704-7) Lab Interpretation Abnormal (test code = 74065-1) [facility]CREAT[facility]IN[facility]) + [id number] 15:57:42 Test Item Value Reference Range Interpretation Comments CK (test code = 23 U/L 33-194 L 6483807121) CK-MB (test code = 0.64 ng/mL See_Comment [Automat ed 8276094991) message] The system which generated this result transmitted reference range : <=3.50. The reference range was not used to interpret this result as normal/abnormal . CKMB INDEX (test code 2.8 % 0.0-2.5 H = 0959645216) RANDOLPH (test code = RANDOLPH) Biotin has been reported to cause a negative bias, interpret results relative to patient's use of biotin. Lab Interpretation Abnormal (test code = 65148-5) [facility] [id number] 15:41:25 Test Item Value Reference Interpretation Comments Range TROPONIN I (test 0.005 ng/mL See_Comment [Automated code = 9475012942) message] The system which generated this result [...] biotin. Lab Interpretation Normal (test code = 09187-6) [facility] [id number] 15:39:24 Test Item Value Reference Range Interpretation Comments NT-proBNP (test code 1040 pg/mL See_Comment H [Autom ated = 8839517476) message] The system which generated this result transmitted reference range : <=125. The reference range was not used to interpret this result as normal/abnormal . RANDOLPH (test code = RANDOLPH) Biotin has been reported to cause a negative bias, interpret results relative to patient's use of biotin. Lab Interpretation Abnormal (test code = 38813-3) [facility] MET[facility]OLIC [facility] (52016)2022-01-26 15:31:05 Test Item Value Reference Range Interpretation Comments NA (test code = 141 mmol/L 135-145 5197843837) K (test code = 4.0 mmol/L 3.5-5.0 8243779901) CL (test code = 101 mmol/L 98-108 2848749861) CO2 TOTAL (test code = 31 mmol/L 23-31 [id number]) AGAP (test code = 2-16 5593521164) BUN (test code = 23 mg/dL 7-23 5731200471) GLUCOSE (test code = 146 mg/dL 70-110 H 0374695631) CREATININE (test code = 0.56 mg/dL 0.50-1.04 5306445712) TOTAL BILI (test code = 1.3 mg/dL 0.1-1.1 H 4780932852) CALCIUM (test code = 8.9 mg/dL 8.6-10.6 3533144848) T PROTEIN (test code = 8.3 g/dL 6.3-8.2 H 3376182541) ALBUMIN (test code = 3.9 g/dL 3.5-5.0 3450290202) ALK PHOS (test code = 82 U/L 34-122 5196206939) ALTv (test code = 24 U/L 5-35 1742-6) AST(SGOT) (test code = 24 U/L 13-40 6437091225) eGFR (test code = mL/min/1.73m2 6314599470) RANDOLPH (test code = RANDOLPH) Association of [...] tests). Lab Interpretation Abnormal (test code = 18909-1) [facility]31[facility]05 Test Item Value Reference Range Interpretation Comments LIPASE (test code = 7636427759) 64 U/L 0-220 Lab Interpretation (test code = Normal 54004-5) [facility] WITH [id number] 15:17:03 Test Item Value Reference Range Interpretation [...] (test code = 53.1 fL 39.0-49.9 H 25775-3) RDW-CV (test code = 17.1 % 12.0-15.5 H 788-0) PLT (test code = See_Comment [Automated 777-3) message] The sy stem which generated this result transmitted reference range : 166 - 358 10*3/ ?L. The reference r angel was not used to interpret this result as normal/abnormal . MPV (test code = 10.0 fL 9.5-12.9 43147-4) NRBC/100 WBC (test See_Comment [Automat ed code = 4026356747) message] The system which generated this result transmitted reference range : 0.0 - 10.0 /100 WBCs. The refer ence range was not u sed to interpret th is result as normal/abnormal . NRBC x10^3 (test code See_Comment [Auto mated = 3343911451) message] The s ystem which generated this result transmitted reference range : 10*3/?L. The reference range was not used to interpret this result as normal/abnormal . GRAN MAT (NEUT) % 73.6 % (test code = 770-8) IMM GRAN % (test code 0.50 % = 3602726549) LYMPH % (test code = 16.5 % 736-9) MONO % (test code = 4.8 % 5905-5) EOS % (test code = 4.3 % 713-8) BASO % (test code = 0.3 % 706-2) GRAN MAT x10^3(ANC) 5.69 10*3/uL 1.88-7.09 (test code = 1937828774) IMM GRAN x10^3 (test 0.04 10*3/uL 0.00-0.06 code = 0097207711) LYMPH x10^3 (test code 1.27 10*3/uL 1.32-3.29 L = 731-0) MONO x10^3 (test code 0.37 10*3/uL 0.33-0.92 = 742-7) EOS x10^3 (test code = 0.33 10*3/uL 0.03-0.39 711-2) BASO x10^3 (test code 0.01-0.07 = 704-7) Lab Interpretation Abnormal (test code = 86858-1) [facility] (COVID-19) RNA [Presence] in Respiratory specimen by DANNA with probe [id number] 00:45:23 Test Item Value Reference Range Interpretation Comments SARS-CoV-2 (COVID-19) RNA Not detected Not-Detected [Presence] in Respiratory specimen by DANNA with probe detection (test code = 92380-7) 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 (test code = 33269-7) Whether the patient has symptoms related to condition of interest (test code = 09010-0) Patient was hospitalized because of this condition (test code = 02566-4) Whether the patient was admitted to intensive care unit (ICU) for condition of interest (test code = 86747-1) Whether patient resides in a congregate care setting (test code = 01317-9) [facility] ULTRASOUND [id number] 11:07:59- BREAST ULTRASOUND BILATERALULTRASOUND OF BOTH BREASTS AND BOTH AXILLA: 06/25/2018CLINICAL: Abnormalmammogram. Comparison is made to exam dated 04/29/2018 mammogram - [facility]. Real-time ultrasound of both breasts [...] demonstrate stability. Sandra Tolentino M.D. dm/:06/25/2018 11:07:59 Foundry Finisher: Lyla Garcia FW, [facility]-FWletter sent: Short Term Follow Up Ultrasound BI-RADS: 3 Probably benignSCR MAMM BILATERAL TESHA CAD DIGITAL 2018-05-10 16:41:30 - SCR MAMM BILATERAL TESHA CAD DIGITALBILATERAL [facility] DIGITAL SCREENING MAMMOGRAM 3D/2D WITH CAD: 04/29/2018CLINICAL: Asymptomatic. Digital breast tomosynthesis was performed in addition to routineCC and MLO views. Current mammographic images were evaluated by either a [employer]u or an [employer] version 7.2 computer aided detection system. No prior exams were available for comparison. There are scattered fibroglandular tissues in both breasts. Multiple bilateral areas of asymmetry in focal asymmetry are noted. The largest focal asymmetry measures up to 1.4 cm in its located in the left breast at ap proximately 6 o'clock, 12 cm from the nipple at a posterior depth. No suspicious architectural distortion, malignant type calcification, or lymph node abnormality detected. Benign secretory calcifications are noted bilaterally.IMPRESSION: INCOMPLETE ASSESSMENT: ADDITIONAL IMAGING EVALUATION RECOMMENDEDFurther evaluation is pending; breast ultrasound to be performed today. Tory Koo M.D. cc/:05/10/2018 16:41:30 Entry: - 05/11/2018 14:26:43Imaging Technologist: Marya Hartman MM, [facility]: Additional Imaging Mammogram BI-RADS: 0 IndeterminateSCR MAMM BILATERAL TESHA CAD [id number] 16:41:30AMENDMENT: 05/18/2018 Tory Koo M.D. The statement:IMPRESSION: INCOMPLETE ASSESSMENT: ADDITIONALIMAGING EVALUATION RECOMMENDEDFurther evaluation is pending; breast ultrasound to be performed today. in the above examination is incorrect. The correct statement is:IMPRESSION: INCOMPLETE ASSESSMENT: ADDITIONAL IMAGING EVALUATION RECOMMENDEDThe multiple bilateral areas of asymmetry in focal asymmetryare indeterminate. Comparison to previous mammograms is recommended and if the findings are new or priors are unobtainable and ultrasound should be performed.Amended BI-RADS: 0 Indeterminate"
[2023-01-26] MEDS ORDERED: NA CHLORIDE 0.9% 1,000 ML ONE (16:00)
[2023-01-26] MEDS ORDERED: ACETAMINOPHEN 325 MG TABLET ONE (16:40)
[2023-01-26] MEDS ORDERED: ACETAMINOPHEN 500 MG TAB ONE (16:42)
[2023-01-26 16:52] LABS: Absolute Lymphocytes (CBC) 1.1 K/uL (0.7-4.9); Hematocrit 34.9 % (36.0-45.0); Lymphocytes % 12.5 % (15.3-44.8); MCV 80.4 fL (80-100); MPV 8.1 fL (7.6-11.3); Platelets 267 thou/uL (152-406); RBC Red Blood Cell Count 4.34 M/uL (3.86-4.86)
[2023-01-26 17:04] LABS: Bilirubin Total 0.9 mg/dL (0.2-1.0); Potassium 4.3 mEq/L (3.5-5.1); Protein, Total 8.9 g/dL (6.4-8.2)
--- NOTE | 2023-01-26 17:44 | EDPHYS ---
Physician Documentation [facility] Name: Gaye Castro Age: 62 yrs Sex: Female : 1960 Arrival Date: 01/26/2023 Time: 15:30 Bed 4 Private MD: ED Physician Simone Cason HPI: 01/26 15:37 This 62 yrs old Female presents to ER via Unassigned with complaints of ec2 diarrhea, weakness. 15:37 Today due to concern for diarrheal symptoms. Patient reports that for the past 6 to 10 ec2 months she has been having loose stools. Patient states that she has not had this evaluated. Patient reports no significant abdominal pain. States that she has had issues with mobility at home, is chronically chair bound and does not get a lot of movement and activity. EMS reports that they had picked her up when she was soaked in her feces. Patient reports concern for dehydration and general poor p.o. intake.. Historical: - Allergies: 17:16 Ibuprofen; triggers GI bleeding; iw - PMHx: 17:16 Anxiety; CHF; COPD; Depression; Hypertension; hypoxia; lymphedema; Pneumonia; PULMONARY iw HYPERTENSION; Sleep Apnea; small heart and lungs; uses home o2; - Immunization history:: Adult Immunizations unknown. - Social history:: Smoking status: Patient/guardian denies using tobacco. ROS: 15:37 Constitutional: as per hpi ec2 Exam: 15:37 Constitutional: GEN: Generally unkempt individual Head: atraumatic Eyes: EOMI Ears: ec2 External ears are normal. CV: regular rate LUNGS: no respiratory distress ABD: non-distended, soft, nontender, not guarding, not rigid SKIN: no evidence of rashes MSK: no evidence of trauma NEURO: moves all extremities equally Vital Signs: 15:45 BP 148 / 91; Pulse 86; Resp 18; Temp 98; Pulse Ox 92% on 4 lpm NC; Weight 122.47 kg; iw 16:30 BP 138 / 84; Pulse 83; Resp 16; Pulse Ox 95% ; iw 17:30 BP 114 / 86; Pulse 82; Resp 18; Pulse Ox 95% on R/A; db 21:31 BP 144 / 92; Pulse 78; Resp 22; Pulse Ox 90% on 4 lpm NC; nw1 21:31 Pt states she "runs low' nw1 MDM: 15:36 Patient medically screened. ec2 15:37 ED course: Patient is a generally unkempt individual who arrives today due to concern ec2 for diarrhea and generalized weakness with a generally poor quality of life. Examination remarkable for nontoxic appearing individual is otherwise in no acute distress who appears disheveled. Will obtain basic lab work, give the patient crystalloid, pain CT abdomen pelvis. Currently considering diarrhea secondary to possible bacterial infection, chronic diarrhea secondary to malabsorption process, dehydration, electrolyte disturbances. . 17:07 ED course: Patient's lab work remarkable for reassuring CBC, metabolic profile with ec2 appropriate electrolytes and renal function. Lipase within normal ranges. . 17:42 ED course: Patient refused a CT on pelvis. Ultimately have a low clinical suspicion for ec2 acute intra-abdominal abscess or surgical process causing the patient's symptoms. Given the patient's reported symptoms of diarrhea and inability to take care of herself with EMS finding the patient in her stool, patient requires admission for social admit. I discussed case with hospitalist, pending admission.. 01/26 15:37 Order name: CBC with Diff; Complete Time: 17:06 ec2 01/26 15:37 Order name: CMP; Complete Time: 17:06 ec2 01/26 15:37 Order name: Lipase; Complete Time: 17:06 ec2 01/26 19:47 Order name: Urinalysis w/ reflexes EDMS 01/26 15:37 Order name: IV Saline Lock; Complete Time: 16:38 ec2 01/26 15:37 Order name: Labs collected and sent; Complete Time: 16:38 ec2 Administered Medications: 16:38 Drug: NS 0.9% IV 1000 ml IV at 1 bolus Per protocol; 1000 mL bolus Route: IV; Rate: 1 iw bolus; Site: left forearm; 16:38 Drug: Acetaminophen PO 1000 mg PO once Route: PO; iw Disposition Summary: 01/26/23 17:44 Hospitalization Ordered Notes: Hospitalization Status: Inpatient Admission ec2 Provider: Chaitanya Schmitz ec2 Location: Telemetry/MedSur (Inpatient) ec2 Condition: Stable ec2 Problem: an ongoing problem ec2 Symptoms: are unchanged ec2 Bed/Room Type: Standard ec2 Room Assignment: 230(01/26/23 19:53) mw Diagnosis - Diarrhea, unspecified ec2 - Inability to care for self ec2 Forms: - Medication Reconciliation Form ec2 - SBAR form ec2 - Leadership Thank You Letter ec2 Signatures: Dispatcher [employer] Kayla Dawson RN RN mw Williams, Irene, RN RN iw Corral, Edwin, MD MD ec2 Corrections: (The following items were deleted from the chart) 17:44 15:37 Abdomen Pelvis W Con+CT.RAD.BRZ ordered. EDNC EDNC 19:53 17:44 ec2
--- NOTE | 2023-01-26 17:44 | ER ---
Nurse's Notes [facility] Name: Gaye Castro Age: 62 yrs Sex: Female : 1960 Arrival Date: 01/26/2023 Time: 15:30 Bed 4 Private MD: Diagnosis: Diarrhea, unspecified;Inability to care for self Presentation: 01/26 15:45 Chief complaint: EMS states: patient called because she has been having diarrhea since iw April, leg pain and weakness since June. She has been noncompliant with medication due to depression and non compliant with Dr visits also due to depression. She could not get off of the toilet so she called EMS. 15:45 Coronavirus screen: At this time, the client does not indicate any symptoms associated iw with coronavirus-19. Ebola Screen: No symptoms or risks identified at this time. Initial Sepsis Screen: Does the patient meet any 2 criteria? No. Patient's initial sepsis screen is negative. Does the patient have a suspected source of infection? No. Patient's initial sepsis screen is negative. Risk Assessment: Do you want to hurt yourself or someone else? Patient reports no desire to harm self or others. Onset of symptoms is unknown. Care prior to arrival: Oxygen administered. via nasal cannula. 15:45 Method Of Arrival: EMS: [facility] iw 15:45 Acuity: DEBBY 3 iw Triage Assessment: 17:16 General: Appears in no apparent distress. uncomfortable, obese, unkempt, Behavior is iw appropriate for age, anxious. Pain: Complains of pain in bilateral lower legs, generalized. Historical: - Allergies: 17:16 Ibuprofen; triggers GI bleeding; iw - PMHx: 17:16 Anxiety; CHF; COPD; Depression; Hypertension; hypoxia; lymphedema; Pneumonia; PULMONARY iw HYPERTENSION; Sleep Apnea; small heart and lungs; uses home o2; - Immunization history:: Adult Immunizations unknown. - Social history:: Smoking status: Patient/guardian denies using tobacco. Screenin:17 [facility] ED Fall Risk Assessment (Adult) History of falling in the last 3 months, iw including since admission No falls in past 3 months (0 pts) Confusion or Disorientation No (0 pts) Intoxicated or Sedated No (0 pts) Impaired Gait Yes (1 pt) Mobility Assist Device Used Yes (1 pt) Altered Elimination No (0 pt) Score/Fall Risk Level 0 - 2 = Low Risk Oriented to surroundings, Maintained a safe environment, Educated pt \\T\\ family on fall prevention, incl call for assistance when getting out of bed, Assessed \\T\\ reinforced patient's understanding of fall precautions, Provided non-skid footwear, Hourly rounding (assess needs \\T\\ fall precautionary measures) done, Used ambulatory aids as needed (educated on \\T\\ assisted with), Used gait belt as appropriate. Abuse screen: Denies threats or abuse. Denies injuries from another. Nutritional screening: No deficits noted. Tuberculosis screening: No symptoms or risk factors identified. Assessment: 17:17 Neuro: Reports history of stroke. Cardiovascular: No deficits noted. Respiratory: iw Reports shortness of breath at rest wears NC oxygen at home 4lpm. GI: Reports diarrhea. : No deficits noted. EENT: No deficits noted. Derm: feet and ankles are crusty, poor hygiene. Musculoskeletal: Reports pain in bilateral lower legs. 18:30 Reassessment: Patient appears in no apparent distress at this time. Patient and/or db family updated on plan of care and expected duration. Pain level reassessed. Patient is alert, oriented x 3, equal unlabored respirations, skin warm/dry/pink. FAMILY AT BEDSIDE. 21:11 Reassessment: 2nd floor nursing station called x2 with no answer. Charge nurse MARIANNE Cuenca nw1 notified. 21:21 Reassessment: Report given to nohemy Spears 230 nurse. All questions asked, answered. nw1 Vital Signs: 15:45 BP 148 / 91; Pulse 86; Resp 18; Temp 98; Pulse Ox 92% on 4 lpm NC; Weight 122.47 kg; iw 16:30 BP 138 / 84; Pulse 83; Resp 16; Pulse Ox 95% ; iw 17:30 BP 114 / 86; Pulse 82; Resp 18; Pulse Ox 95% on R/A; db 21:31 BP 144 / 92; Pulse 78; Resp 22; Pulse Ox 90% on 4 lpm NC; nw1 21:31 Pt states she "runs low' nw1 ED Course: 15:36 Patient arrived in ED. iw 15:36 Simone Cason MD is Attending Physician. ec2 15:43 Kalli Sinha, MARIANNE is Primary Nurse. ko1 16:30 Inserted saline lock: 20 gauge in left forearm, using aseptic technique. Blood iw collected. 16:38 CBC with Diff Sent. iw 16:38 CMP Sent. iw 16:38 Lipase Sent. iw 17:15 Triage completed. iw 17:16 Arm band placed on right wrist. Patient placed in an exam room, on a stretcher, on iw oxygen, on elderly companion, on pulse oximetry, Patient notified of wait time. 17:17 Fall risk band placed. Bed in low position. Call light in reach. Side rails up X2. iw Provided Education on: na. Client placed on continuous cardiac and pulse oximetry monitoring. NIBP monitoring applied. hadoop analyst on. Door closed. Noise minimized. Lights dimmed. Warm blanket given. 17:44 Chaitanya Schmitz MD is Hospitalizing Provider. ec2 21:34 No provider procedures requiring assistance completed. not discontinued due to nw1 admission. Administered Medications: 16:38 Drug: NS 0.9% IV 1000 ml IV at 1 bolus Per protocol; 1000 mL bolus Route: IV; Rate: 1 iw bolus; Site: left forearm; 16:38 Drug: Acetaminophen PO 1000 mg PO once Route: PO; iw Medication: 21:36 VIS not applicable for this client. nw1 Outcome: 17:44 Decision to Hospitalize by Provider. ec2 21:34 Admitted to Med/surg accompanied by nurse, via stretcher, room 230, with oxygen, on nw1 monitor, with chart, Report called to Tory 21:34 Condition: stable 21:34 Instructed on the need for admit, Demonstrated understanding of admit 21:36 Patient left the ED. nw1 Signatures: Haydee Roberts RN RN iw Kalli Sinha RN RN ko1 Sandra Pryor RN RN db Corral, Edwin, MD MD ec2 Kate Roberts RN RN nw1 Corrections: (The following items were deleted from the chart) 17:15 17:11 Chief complaint: EMS states: patient called because she has been having diarrhea iw since April, leg pain and weakness since June. She has been noncompliant with medication due to depression and non compliant with Dr visits also due to depression. She could not get off of the toilet so she called EMS iw 17:22 17:17 Inserted saline lock: 20 gauge in left forearm, using aseptic technique. Blood iw collected. iw
--- NOTE | 2023-01-26 20:34 | P.HP ---
Certification for Inpatient Patient admitted to: Inpatient With expected LOS: >2 Midnights Patient will require the following post-hospital care: Long-Term Practitioner: I am a practitioner with admitting privileges, knowledge of patient current condition, hospital course, and medical plan of care. Services: Services provided to patient in accordance with Admission requirements found in Title 42 Section 412.3 of the Code of Federal Regulations Patient History Date of Service: 01/27/23 Reason for admission: Low back pain, failure to thrive, leg weakness History of Present Illness: 62-year-old female patient with medical history significant for hyperlipidemia, hypertension, COPD, depression, history of CVA with residual neurologic deficits was evaluated for episode of inability to move around appropriately and leg weakness. patient reported more leg weakness on the left side and has been going on for a while. She has recently had inability to move well and has persistent low back pain with shooting pain down into the lower extremities worse on the left than the right. She also has inability to lay flat. Because of the concerns she has had issues with appropriate toileting and has had loose stools and was found to be significantly unkempt on initial evaluation by emergency medical personnel. She was brought into the emergency room for evaluation and on initial review she was found to be significantly concerning for underlying pathology in the lumbosacral region. She was admitted for inpatient care and possibility of rehabilitation with placement secondary to physical deconditioning. She denies recent weight loss, fever, chills, rigor, nausea, vomiting. Allergies ibuprofen Adverse Reaction (Verified 01/26/23 23:35) irritates stomach ulcer Home Medications: Citalopram [Celexa*] 40 mg PO DAILY 09/16/15 Spironolactone [Aldactone*] 25 mg PO BID #60 tab 09/30/17 ALPRAZolam [Xanax*] 0.25 mg PO BID 01/11/18 Atorvastatin Calcium [Lipitor*] 10 mg PO DAILY 04/15/22 Bumetanide [Bumex*] 1 mg PO DAILY 04/15/22 Pantoprazole [Protonix Tab*] 40 mg PO DAILY 04/15/22 Potassium Chloride [Klor-Con M20] 20 meq PO DAILY 04/15/22 Sildenafil Citrate 20 mg PO TID 04/15/22 Fluticasone/Vilanterol [Breo Ellipta 100-25 Mcg INH] 1 each IH DAILYPRN PRN 01/26/23 Liraglutide [Victoza 2-Colt] 18 units SQ DAILY 01/26/23 Metoprolol Tartrate [Lopressor] 12.5 mg PO BID 01/26/23 - Past Medical/Surgical History Diabetic: No -: HTN -: CHF, diastolic dysfunction -: COPD -: Lymphadema -: Obesity hypoventilation syndrome -: Anxiety -: GERD -: Morbid obesity -: Secondhand smoke exposure -: Depression Psychosocial/ Personal History: Patient lives with her boyfriend - Family History Mother -: Heart disease, Hypertension, Diabetes, Other (see notes) Notes: dementia Sister -: Hypertension - Social History Alcohol use: Yes CD- Drugs: No Caffeine use: Yes Review of Systems General: Malaise Eyes: Unremarkable ENT: Unremarkable Respiratory: Unremarkable Cardiovascular: Unremarkable Gastrointestinal: Unremarkable Musculoskeletal: Back Pain Integumentary: Unremarkable Neurological: Unremarkable Physical Examination - Physical Exam General: Alert, Oriented x3 HEENT: Atraumatic, Normocephalic Neck: Supple Respiratory: Normal air movement Cardiovascular: Regular rate/rhythm, Normal S1 S2 Gastrointestinal: Soft and benign Musculoskeletal: Tenderness (lower back.) Neurological: Normal speech - Studies Laboratory Data (last 24 hrs) 01/26/23 01/26/23 16:30 16:30 WBC 8.40 Hgb 11.4 L Hct 34.9 L Plt Count 267 Sodium 136 Potassium 4.3 BUN 15 Creatinine 0.45 L Glucose 99 Total Bilirubin 0.9 AST 23 ALT 23 Alkaline Phosphatase 72 Lipase 23 Assessment and Plan - Plan Low back pain: Etiology of low back pain is multifactorial. Patient is deconditioned and there is also concerns for possibility of musculoskeletal issues/ligament issues. For now imaging study cannot be done due to patient's inability to tolerate pain/lay flat. We will have pain control on board. We will have neuromodulators on board also. Once pain control is achieved, we will have patient do MRI of the lumbosacral spine for appropriate evaluation. Hypertension: We will monitor vital signs per unit protocol and continue to (medications. Physical deconditioning: We will have physical therapy evaluate for appropriate management recommendation. Goal is to have patient on rehabilitation. Morbid obesity: We will encourage weight loss Depression: Patient is on escitalopram at home. She does have significant neuropathic pain. At this time I think patient would benefit from medication change to achieve a degree of neuropathic pain and also to treat depressive symptoms. We will try patient on nortriptyline 25 mg p.o. nightly and observe clinical symptomatology especially pain control. Prophylaxis: Lovenox for DVT prophylaxis CODE STATUS: Full code Disposition: We will treat patient's pain, work-up for etiology of low back pain and nerve placement in the rehabilitation/home exercises established prior to discharge. Discharge Plan: [facility] Plan to discharge in: Greater than 2 days - Advance Directives Does patient have a Living Will: No Does patient have a Durable POA for Healthcare: Yes
[2023-01-26] MEDS ORDERED: METHYLPREDNISOLONE 40 MG INJ IV ONE (20:47)
[2023-01-26] MEDS: NORTRIPTYLINE HCL 25 MG CAP PO SCH (21:00)
[2023-01-26] MEDS: ENOXAPARIN 40 MG/0.4 ML SQ SCH (23:22)
[2023-01-26] MEDS: D5 0.45 NS 1,000 ML IV SCH (23:23)
[2023-01-27 01:30] LABS: Specific Gravity 1.023 (1.005-1.030); Urine Bacteria None Seen /HPF (<20); Urine Bilirubin NEGATIVE (Negative); Urine Blood Negative (Negative); Urine Clarity Clear (Clear); Urine Color Light-Yellow (Yellow); Urine Glucose NEGATIVE (Negative); Urine Protein NEGATIVE (Negative); Urine RBC <5 /HPF (None Seen); Urine Urobilinogen Normal (Normal); Urine pH 7.5 (5.0-7.0)
[2023-01-27] MEDS ORDERED: HYDROCODONE/APAP 7.5/325 MG TAB PO PRN (03:44)
[2023-01-27] MEDS ORDERED: DOCUSATE NA 100 MG CAP PO PRN (03:44)
--- NOTE | 2023-01-27 07:44 | P.PN ---
Date of Service: 01/27/23 Subjective: Been feeling weak since ~december that has been progressively been getting worse feels lower extremity pain and weakness are both limiting factors; ~50/50 reports being unable to lay flat d/t oxygen desats knee pain that comes and goes, +warmth denies numbness/tingling ROS: 10 point ROS as noted above, otherwise negative Physical Exam: GEN: Alert, oriented, NAD HEENT: Normal conjunctiva, sclera anicteric CV: Regular rate and rhythm, no edema Pulm: Nonlabored respirations on 4L NC, diminished at bases b/l ABD: Soft, nontender, nondistended Integumentary: No rashes Neuro: Normal speech, normal affect, intact sensation vitals reviewed Problem List: Lower Back pain, chronic; progressive Generalized weakness, physical deconditioning history of CVA with residual neurologic deficits Chronic diastolic CHF Rheumatoid arthritis COPD, chronic Hypertension Hyperlipidemia GERD Anxiety/Depression Lower Back pain Generalized weakness, physical deconditioning history of CVA with residual neurologic deficits suspect etiology of low back pain is multifactorial. Patient is deconditioned and there is also concerns for possibility of musculoskeletal issues/ligament issues. For now imaging study cannot be done due to patient's inability to tolerate pain/lay flat. PRN pain medication Once pain control is achieved, will consider CT of the lumbosacral spine for appropriate evaluation. decrease steroid from subq to prednisone decrease pain meds to Tylenol #3 for breakthrough PT consult Chronic diastolic CHF Rheumatoid arthritis COPD Hypertension Hyperlipidemia GERD confirm home medications, restart as appropriate Anxiety/Depression home escitalopram switched to Nortriptyline. Monitor VTE: Lovenox Code: Full Dispo: SNF - Pending eval/approval Pending further improvement
[2023-01-27] MEDS: ENOXAPARIN 40 MG/0.4 ML SQ SCH (10:24)
[2023-01-27] MEDS: D5 0.45 NS 1,000 ML IV SCH (10:30)
[2023-01-27] MEDS ORDERED: HYDROCODONE/APAP 5/325 MG TAB PO PRN (13:16)
[2023-01-27] MEDS: predniSONE 20 MG TAB PO SCH (17:45)
[2023-01-27] MEDS ORDERED: CODEINE 30MG/APAP 300MG TAB PO PRN (18:22)
[2023-01-27] MEDS: NORTRIPTYLINE HCL 25 MG CAP PO SCH (20:47)
[2023-01-28] MEDS ORDERED: ONDANSETRON 4 MG/2 ML VIAL IV PRN (00:44)
[2023-01-28] MEDS: BUMETANIDE 1 MG TABLET PO SCH (09:17)
[2023-01-28] MEDS: PANTOPRAZOLE 40MG TABLET PO SCH (09:17)
[2023-01-28] MEDS: CITALOPRAM 10 MG TABLET PO SCH (09:17)
[2023-01-28] MEDS: SILDENAFIL CITRATE 20 MG TABLET PO SCH ×3 (09:17→20:46)
[2023-01-28] MEDS: SPIRONOLACTONE 25 MG TABLET PO SCH ×2 (09:18→20:47)
[2023-01-28] MEDS: predniSONE 20 MG TAB PO SCH ×2 (09:18→16:20)
[2023-01-28] MEDS: ENOXAPARIN 40 MG/0.4 ML SQ SCH (09:18)
--- NOTE | 2023-01-28 10:14 | P.PN ---
Date of Service: 01/28/23 Subjective: Feeling better today got nauseated last night - likely from tylenol #3 given zofran with relief - improved today otherwise no new / worsening problems PT initial eval done yesterday afternoon ROS: 10 point ROS as noted above, otherwise negative Physical Exam: GEN: Alert, oriented, NAD HEENT: Normal conjunctiva, sclera anicteric CV: Regular rate and rhythm, no edema Pulm: Nonlabored respirations on 4L NC, diminished at bases b/l ABD: Soft, nontender, nondistended Integumentary: mild erythema of upper chest / upper cheeks Neuro: Normal speech, normal affect, intact sensation vitals reviewed Problem List: Lower Back pain, chronic; progressive Generalized weakness, physical deconditioning history of CVA with residual neurologic deficits Chronic diastolic CHF Rheumatoid arthritis COPD, chronic Hypertension Hyperlipidemia GERD Anxiety/Depression Constipation Lower Back pain, chronic; progressive Generalized weakness, physical deconditioning history of CVA with residual neurologic deficits Rheumatoid arthritis suspect etiology of low back pain is multifactorial. Patient is deconditioned and there is also concerns for possibility of musculoskeletal issues/ligament issues. possible inflammatory / RA component For now imaging study cannot be done due to patient's inability to tolerate pain/lay flat. PRN pain medicatio decrease steroid from subq to prednisone, taper to lowest effective dose Tylenol #3 switched to tramadol 01/28 d/t tylenol#3 made patient nauseous PT consulted Chronic diastolic CHF COPD, chronic Hypertension Hyperlipidemia GERD confirm home medications, restart as appropriate Anxiety/Depression. home escitalopram . Monitor Constipation. MARIN colace, PRN glycolax added 01/28 VTE: Lovenox Code: Full Dispo: SNF - Pending approval Pending further improvement
[2023-01-28] MEDS: DOCUSATE NA 100 MG CAP PO SCH (14:01)
[2023-01-28] MEDS: ACETAMINOPHEN 325 MG TABLET PO PRN (16:20)
[2023-01-28] MEDS: NORTRIPTYLINE HCL 25 MG CAP PO SCH (20:45)
[2023-01-28] MEDS: ATORVASTATIN 10 MG TAB PO SCH (20:47)
[2023-01-29 03:12] LABS: Absolute Lymphocytes (CBC) 1.1 K/uL (0.7-4.9); Hematocrit 34.2 % (36.0-45.0); Lymphocytes % 12.2 % (15.3-44.8); MCV 79.6 fL (80-100); MPV 8.4 fL (7.6-11.3); Platelets 288 thou/uL (152-406); RBC Red Blood Cell Count 4.29 M/uL (3.86-4.86)
[2023-01-29 03:26] LABS: C-Reactive Protein 5.66 mg/L (<3.00); Potassium 4.1 mEq/L (3.5-5.1)
[2023-01-29] MEDS: SILDENAFIL CITRATE 20 MG TABLET PO SCH ×3 (09:33→21:47)
[2023-01-29] MEDS: SPIRONOLACTONE 25 MG TABLET PO SCH ×2 (09:34→21:55)
[2023-01-29] MEDS: predniSONE 20 MG TAB PO SCH (09:35)
[2023-01-29] MEDS: PANTOPRAZOLE 40MG TABLET PO SCH (09:35)
[2023-01-29] MEDS: CITALOPRAM 10 MG TABLET PO SCH (09:35)
[2023-01-29] MEDS: BUMETANIDE 1 MG TABLET PO SCH (09:36)
[2023-01-29] MEDS: DOCUSATE NA 100 MG CAP PO SCH (09:37)
--- NOTE | 2023-01-29 11:03 | P.PN ---
Date of Service: 01/29/23 Subjective: Feeling better today Working with PT; improving mild blanchable erythema of upper chest / upper cheeks slightly more bright/red denies itchiness, not painful afebrile ROS: 10 point ROS as noted above, otherwise negative Physical Exam: GEN: Alert, oriented, NAD HEENT: Normal conjunctiva, sclera anicteric CV: Regular rate and rhythm, no edema Pulm: Nonlabored respirations on 3L NC, diminished at bases b/l ABD: Soft, nontender, nondistended Integumentary: mild blanchable erythema of upper chest / upper cheeks / arms Neuro: Normal speech, normal affect, intact sensation vitals reviewed Problem List: Lower Back pain, chronic; progressive Generalized weakness, physical deconditioning history of CVA with residual neurologic deficits Rheumatoid arthritis Dermatitis, nonspecific Chronic diastolic CHF COPD, chronic Hypertension Hyperlipidemia GERD h/o prior CVA Anxiety/Depression Constipation Lower Back pain, chronic; progressive Generalized weakness, physical deconditioning history of CVA with residual neurologic deficits Rheumatoid arthritis Dermatitis, nonspecific suspect etiology of low back pain is multifactorial. Patient is deconditioned and there is also concerns for possibility of musculoskeletal issues/ligament issues. possible inflammatory / RA component For now imaging study cannot be done due to patient's inability to tolerate pain/lay flat. PRN pain medication decrease steroid from subq to prednisone, taper to lowest effective dose PT consulted Tylenol #3 switched to tramadol 01/28 d/t nausea 01/28 patient noted to have mild blanchable erythema of upper chest / upper cheeks / arms allergic vs. contact vs. inflammatory slightly more pronounce 01/29; denies itchiness Benadryl 01/29 Chronic diastolic CHF COPD, chronic Hypertension Hyperlipidemia GERD h/o prior CVA confirm home medications, restart as appropriate Anxiety/Depression. home escitalopram switched to Nortriptyline. Monitor Constipation. MARIN colace, PRN glycolax added 01/28 VTE: Lovenox Code: Full Dispo: SNF - Pending approval Pending further improvement
[2023-01-29] MEDS ORDERED: DIPHENHYDRAMINE 25 MG TAB/CAP PO PRN (11:11)
[2023-01-29] MEDS: ENOXAPARIN 40 MG/0.4 ML SQ SCH (13:44)
[2023-01-29 14:27] VITALS: BMI 48.4
[2023-01-29] MEDS: ATORVASTATIN 10 MG TAB PO SCH (21:47)
[2023-01-29] MEDS: NORTRIPTYLINE HCL 25 MG CAP PO SCH (21:47)
[2023-01-30] MEDS: CITALOPRAM 10 MG TABLET PO SCH (09:18)
[2023-01-30] MEDS: SILDENAFIL CITRATE 20 MG TABLET PO SCH ×3 (09:18→20:39)
[2023-01-30] MEDS: predniSONE 20 MG TAB PO SCH (09:18)
[2023-01-30] MEDS: ENOXAPARIN 40 MG/0.4 ML SQ SCH (09:18)
[2023-01-30] MEDS: BUMETANIDE 1 MG TABLET PO SCH (09:19)
[2023-01-30] MEDS: PANTOPRAZOLE 40MG TABLET PO SCH (09:19)
[2023-01-30] MEDS: SPIRONOLACTONE 25 MG TABLET PO SCH ×2 (09:19→20:40)
[2023-01-30] MEDS: DOCUSATE NA 100 MG CAP PO SCH (09:19)
--- NOTE | 2023-01-30 13:12 | P.PN ---
Date of Service: 01/30/23 Subjective: Feeling better overall today felt like she might have had a panic attack during PT today; reports that it occurs occasionally at home resolved after a few minutes; felt like it was hard to breathe during episode Erythema improving; covering smaller area and less red strength slowly improving each day Patient states she is DNR; code status changed ROS: 10 point ROS as noted above, otherwise negative Physical Exam: GEN: Alert, oriented, NAD HEENT: Normal conjunctiva, sclera anicteric CV: Regular rate and rhythm, no edema Pulm: Nonlabored respirations on 4L NC, diminished at bases b/l ABD: Soft, nontender, nondistended Integumentary: mild blanchable erythema of upper chest / upper cheeks / arms Neuro: Normal speech, normal affect, intact sensation vitals reviewed Problem List: Lower Back pain, chronic; progressive Generalized weakness, physical deconditioning history of CVA with residual neurologic deficits Rheumatoid arthritis Dermatitis, nonspecific Chronic diastolic CHF COPD, chronic Hypertension Hyperlipidemia GERD h/o prior CVA Anxiety/Depression Constipation Lower Back pain, chronic; progressive Generalized weakness, physical deconditioning history of CVA with residual neurologic deficits Rheumatoid arthritis Dermatitis, nonspecific suspect etiology of low back pain is multifactorial. Patient is deconditioned and there is also concerns for possibility of musculoskeletal issues/ligament issues. possible inflammatory / RA component For now imaging study cannot be done due to patient's inability to tolerate pain/lay flat. PRN pain medication decrease steroid from subq to prednisone, taper to lowest effective dose PT consulted Tylenol #3 switched to tramadol 01/28 d/t nausea 01/28 patient noted to have mild blanchable erythema of upper chest / upper cheeks / arms allergic vs. contact vs. inflammatory slightly more pronounce 01/29; denies itchiness Benadryl 01/29 improving Chronic diastolic CHF COPD, chronic Hypertension Hyperlipidemia GERD h/o prior CVA confirm home medications, restart as appropriate Anxiety/Depression. home escitalopram switched to Nortriptyline. Monitor Constipation. MARIN colace, PRN glycolax added 01/28 VTE: Lovenox Code: DNR Dispo: SNF - pending [id number] Pending further improvement
[2023-01-30] MEDS ORDERED: DIPHENHYDRAMINE 25 MG TAB/CAP PO PRN (13:23)
[2023-01-30] MEDS: TRAMADOL HCL 50 MG TAB PO PRN (17:07)
[2023-01-30] MEDS: NORTRIPTYLINE HCL 25 MG CAP PO SCH (20:40)
[2023-01-30] MEDS: ATORVASTATIN 10 MG TAB PO SCH (20:40)
[2023-01-31] MEDS: SILDENAFIL CITRATE 20 MG TABLET PO SCH ×3 (09:55→21:03)
[2023-01-31] MEDS: DOCUSATE NA 100 MG CAP PO SCH (09:55)
[2023-01-31] MEDS: PANTOPRAZOLE 40MG TABLET PO SCH (09:55)
[2023-01-31] MEDS: predniSONE 20 MG TAB PO SCH (09:56)
[2023-01-31] MEDS: BUMETANIDE 1 MG TABLET PO SCH (09:56)
[2023-01-31] MEDS: CITALOPRAM 10 MG TABLET PO SCH (09:57)
[2023-01-31] MEDS: ENOXAPARIN 40 MG/0.4 ML SQ SCH (09:57)
[2023-01-31] MEDS: SPIRONOLACTONE 25 MG TABLET PO SCH ×2 (09:57→21:03)
[2023-01-31] MEDS ORDERED: ALPRAZOLAM 0.25 MG TABLET PO PRN (10:30)
--- NOTE | 2023-01-31 11:49 | P.PN ---
Date of Service: 01/31/23 Subjective: Feeling better today no new / worsening problems Slowly improving with PT each day restarted home xanax today ROS: 10 point ROS as noted above, otherwise negative Physical Exam: GEN: Alert, oriented, NAD HEENT: Normal conjunctiva, sclera anicteric CV: Regular rate and rhythm, no edema Pulm: Nonlabored respirations on 4L NC, diminished at bases b/l ABD: Soft, nontender, nondistended Integumentary: mild blanchable erythema of upper chest / upper cheeks / arms Neuro: Normal speech, normal affect, intact sensation vitals reviewed Problem List: Lower Back pain, chronic; progressive Generalized weakness, physical deconditioning history of CVA (~Jan 2022) with residual neurologic deficits Rheumatoid arthritis Dermatitis, nonspecific Chronic diastolic CHF COPD, chronic Hypertension Hyperlipidemia GERD Anxiety/Depression Constipation Lower Back pain, chronic; progressive Generalized weakness, physical deconditioning history of CVA (~Jan 2022) with residual neurologic deficits Rheumatoid arthritis Dermatitis, nonspecific suspect etiology of low back pain is multifactorial. Patient is deconditioned and there is also concerns for possibility of musculoskeletal issues/ligament issues. possible inflammatory / RA component For now imaging study cannot be done due to patient's inability to tolerate pain/lay flat. PRN pain medication decrease steroid from subq to prednisone, taper to lowest effective dose PT consulted Tylenol #3 switched to tramadol 01/28 d/t nausea 01/28 patient noted to have mild blanchable erythema of upper chest / upper cheeks / arms allergic vs. contact vs. inflammatory slightly more pronounce 01/29; denies itchiness Benadryl 01/29 improving Chronic diastolic CHF COPD, chronic Hypertension Hyperlipidemia GERD confirm home medications, restart as appropriate Anxiety/Depression. home escitalopram switched to Nortriptyline. Monitor restarted home xanax 01/31 Constipation. MARIN colace, PRN glycolax added 01/28 VTE: Lovenox Code: DNR Dispo: SNF - pending approval Pending further improvement
[2023-01-31] MEDS: NORTRIPTYLINE HCL 25 MG CAP PO SCH (21:03)
[2023-01-31] MEDS: ATORVASTATIN 10 MG TAB PO SCH (21:03)
[2023-02-01 02:30] LABS: Hematocrit 36.6 % (36.0-45.0); Lymphocytes % 17.7 % (15.3-44.8); MCV 79.7 fL (80-100); MPV 7.8 fL (7.6-11.3); Platelets 284 thou/uL (152-406); RBC Red Blood Cell Count 4.59 M/uL (3.86-4.86)
[2023-02-01 02:45] LABS: Magnesium 2.1 mg/dL (1.6-2.4); Potassium 3.9 mEq/L (3.5-5.1)
[2023-02-01] MEDS: SPIRONOLACTONE 25 MG TABLET PO SCH ×2 (10:08→21:30)
[2023-02-01] MEDS: predniSONE 10 MG TAB PO SCH (10:09)
[2023-02-01] MEDS: PANTOPRAZOLE 40MG TABLET PO SCH (10:09)
[2023-02-01] MEDS: CITALOPRAM 10 MG TABLET PO SCH (10:09)
[2023-02-01] MEDS: DOCUSATE NA 100 MG CAP PO SCH (10:09)
[2023-02-01] MEDS: BUMETANIDE 1 MG TABLET PO SCH (10:09)
[2023-02-01] MEDS: ENOXAPARIN 40 MG/0.4 ML SQ SCH (10:10)
[2023-02-01] MEDS: TRAMADOL HCL 50 MG TAB PO PRN (10:13)
[2023-02-01] MEDS: SILDENAFIL CITRATE 20 MG TABLET PO SCH ×3 (10:14→21:30)
--- NOTE | 2023-02-01 10:44 | P.PN ---
Date of Service: 02/01/23 Subjective: Feeling better today Right leg with slightly more range of motion today; pain slowly improving still very limited by knee/leg pain otherwise no new / worsening problems minimal erythema of chest/face; improved ROS: 10 point ROS as noted above, otherwise negative Physical Exam: GEN: Alert, oriented, NAD HEENT: Normal conjunctiva, sclera anicteric CV: Regular rate and rhythm, no edema Pulm: Nonlabored respirations on 4L NC, diminished at bases b/l ABD: Soft, nontender, nondistended Integumentary: minimal blanchable erythema of upper chest / upper cheeks / arms Neuro: Normal speech, normal affect, intact sensation vitals reviewed Problem List: Lower Back pain, chronic; progressive Generalized weakness, physical deconditioning history of CVA (~Jan 2022) with residual neurologic deficits Rheumatoid arthritis Dermatitis, nonspecific; improved Chronic diastolic CHF COPD, chronic Hypertension Hyperlipidemia GERD Anxiety/Depression Constipation Lower Back pain, chronic; progressive Generalized weakness, physical deconditioning history of CVA (~Jan 2022) with residual neurologic deficits Rheumatoid arthritis Dermatitis, nonspecific; improved suspect etiology of low back pain is multifactorial. Patient is deconditioned and there is also concerns for possibility of musculoskeletal issues/ligament issues. possible inflammatory / RA component For now imaging study cannot be done due to patient's inability to tolerate pain/lay flat. PRN pain medication decrease steroid from subq to prednisone, taper to lowest effective dose PT consulted Tylenol #3 switched to tramadol 01/28 d/t nausea 01/28 patient noted to have mild blanchable erythema of upper chest / upper cheeks / arms allergic vs. contact vs. inflammatory slightly more pronounce 01/29; denies itchiness Benadryl 01/29 improved Chronic diastolic CHF COPD, chronic Hypertension Hyperlipidemia GERD confirm home medications, restart as appropriate Anxiety/Depression. home escitalopram switched to Nortriptyline. Monitor restarted home xanax 01/31 Constipation. MARIN colace, PRN glycolax added 01/28 VTE: Lovenox Code: DNR Dispo: SNF - pending approval Pending further improvement
[2023-02-01] MEDS: ATORVASTATIN 10 MG TAB PO SCH (21:30)
[2023-02-01] MEDS: NORTRIPTYLINE HCL 25 MG CAP PO SCH (21:31)
[2023-02-02 03:32] LABS: Potassium 4.3 mEq/L (3.5-5.1)
[2023-02-02] MEDS: BUMETANIDE 1 MG TABLET PO SCH (08:22)
[2023-02-02] MEDS: CITALOPRAM 10 MG TABLET PO SCH (08:23)
[2023-02-02] MEDS: DOCUSATE NA 100 MG CAP PO SCH (08:23)
[2023-02-02] MEDS: SILDENAFIL CITRATE 20 MG TABLET PO SCH ×3 (08:23→20:41)
[2023-02-02] MEDS: ENOXAPARIN 40 MG/0.4 ML SQ SCH (08:23)
[2023-02-02] MEDS: PANTOPRAZOLE 40MG TABLET PO SCH (08:23)
[2023-02-02] MEDS: SPIRONOLACTONE 25 MG TABLET PO SCH ×2 (08:23→20:40)
[2023-02-02] MEDS: POLYETHYL GLY 3350 17 GM/DOSE PO PRN (08:24)
[2023-02-02] MEDS: predniSONE 10 MG TAB PO SCH (09:00)
--- NOTE | 2023-02-02 11:46 | P.PN ---
Date of Service: 02/02/23 Subjective: Feeling better today no new / worsening problems erythema of chest/face improved pending SNF approval ROS: 10 point ROS as noted above, otherwise negative Physical Exam: GEN: Alert, oriented, NAD HEENT: Normal conjunctiva, sclera anicteric CV: Regular rate and rhythm, no edema Pulm: Nonlabored respirations on 4L NC, diminished at bases b/l ABD: Soft, nontender, nondistended Integumentary: minimal blanchable erythema of upper chest / upper cheeks / arms Neuro: Normal speech, normal affect, intact sensation vitals reviewed Problem List: Lower Back pain, chronic; progressive Generalized weakness, physical deconditioning history of CVA (~Jan 2022) with residual neurologic deficits Rheumatoid arthritis Dermatitis, nonspecific; improved Chronic diastolic CHF COPD, chronic Hypertension Hyperlipidemia GERD Anxiety/Depression Constipation Lower Back pain, chronic; progressive Generalized weakness, physical deconditioning history of CVA (~Jan 2022) with residual neurologic deficits Rheumatoid arthritis Dermatitis, nonspecific; improved suspect etiology of low back pain is multifactorial. Patient is deconditioned and there is also concerns for possibility of musculoskeletal issues/ligament issues. possible inflammatory / RA component For now imaging study cannot be done due to patient's inability to tolerate pain/lay flat. PRN pain medication decrease steroid from subq to prednisone, taper to lowest effective dose PT consulted Tylenol #3 switched to tramadol 01/28 d/t nausea 01/28 patient noted to have mild blanchable erythema of upper chest / upper cheeks / arms allergic vs. contact vs. inflammatory slightly more pronounce 01/29; denies itchiness Benadryl 01/29 improved Chronic diastolic CHF COPD, chronic Hypertension Hyperlipidemia GERD confirm home medications, restart as appropriate Anxiety/Depression. home escitalopram switched to Nortriptyline. Monitor restarted home xanax 01/31 Constipation. MARIN colace, PRN glycolax added 01/28 VTE: Lovenox Code: DNR Dispo: SNF - pending approval Pending further improvement
[2023-02-02] MEDS: ACETAMINOPHEN 325 MG TABLET PO PRN (12:46)
[2023-02-02] MEDS: TRAMADOL HCL 50 MG TAB PO PRN (20:40)
[2023-02-02] MEDS: NORTRIPTYLINE HCL 25 MG CAP PO SCH (20:41)
[2023-02-02] MEDS: ATORVASTATIN 10 MG TAB PO SCH (20:41)
[2023-02-03] MEDS: PANTOPRAZOLE 40MG TABLET PO SCH (08:38)
[2023-02-03] MEDS: CITALOPRAM 10 MG TABLET PO SCH (08:38)
[2023-02-03] MEDS: DOCUSATE NA 100 MG CAP PO SCH (08:38)
[2023-02-03] MEDS: SPIRONOLACTONE 25 MG TABLET PO SCH ×2 (08:38→20:50)
[2023-02-03] MEDS: ENOXAPARIN 40 MG/0.4 ML SQ SCH (08:39)
[2023-02-03] MEDS: BUMETANIDE 1 MG TABLET PO SCH (08:39)
[2023-02-03] MEDS: predniSONE 10 MG TAB PO SCH (08:39)
[2023-02-03] MEDS: SILDENAFIL CITRATE 20 MG TABLET PO SCH ×3 (10:41→20:50)
--- NOTE | 2023-02-03 16:47 | P.PN ---
Subjective Date of Service: 02/03/23 Chief Complaint: Low back pain, failure to thrive, leg weakness Patient has no new complaint. She states her pain is better unable to move her legs more. Physical Examination - Vital Signs Temperature: 97.0 F Blood Pressure: 137/70 Pulse: 98 Respirations: 16 Pulse Ox (%): 91 Assessment And Plan - Plan Physical Exam: GEN: Alert, oriented, NAD, obese. HEENT: Normal conjunctiva, sclera anicteric CV: Regular rate and rhythm, no edema Pulm: Diminished at bases b/l, no crackles or wheezes. ABD: Soft, nontender, nondistended Integumentary: minimal blanchable erythema of upper chest / upper cheeks / arms Neuro: Normal speech, normal affect, intact sensation vitals reviewed Problem List: Lower Back pain, chronic; progressive Generalized weakness, physical deconditioning history of CVA (~Jan 2022) with residual neurologic deficits Rheumatoid arthritis Dermatitis, nonspecific; improved Chronic diastolic CHF COPD, chronic Hypertension Hyperlipidemia GERD Anxiety/Depression Constipation Lower Back pain, chronic; progressive Generalized weakness, physical deconditioning history of CVA (~Jan 2022) with residual neurologic deficits Rheumatoid arthritis Dermatitis, nonspecific; improved suspect etiology of low back pain is multifactorial. Patient is deconditioned and there is also concerns for possibility of musculoskeletal issues/ligament issues. possible inflammatory / RA component Imaging study not done due to patient's inability to tolerate pain when laying flat. PRN pain medication Continue current dose of prednisone. Continue PT Chronic diastolic CHF COPD, chronic Hypertension Hyperlipidemia GERD Continue home medications Anxiety/Depression. On Nortriptyline. Monitor On xanax 01/31 Constipation. Scheduled Colace and PRN glycolax unsuccessful so far. Trial of enema. VTE: Lovenox Code: DNR Dispo: SNF - pending approval
[2023-02-03] MEDS ORDERED: FLEET ENEMA ADULT PR ONE (16:54)
[2023-02-03] MEDS: NORTRIPTYLINE HCL 25 MG CAP PO SCH (20:50)
[2023-02-03] MEDS: ATORVASTATIN 10 MG TAB PO SCH (20:50)
[2023-02-04] MEDS: ENOXAPARIN 40 MG/0.4 ML SQ SCH (09:29)
[2023-02-04] MEDS: POLYETHYL GLY 3350 17 GM/DOSE PO PRN (09:29)
[2023-02-04] MEDS: BUMETANIDE 1 MG TABLET PO SCH (09:30)
[2023-02-04] MEDS: SPIRONOLACTONE 25 MG TABLET PO SCH ×2 (09:30→21:16)
[2023-02-04] MEDS: CITALOPRAM 10 MG TABLET PO SCH (09:31)
[2023-02-04] MEDS: predniSONE 10 MG TAB PO SCH (09:31)
[2023-02-04] MEDS: PANTOPRAZOLE 40MG TABLET PO SCH (09:31)
[2023-02-04] MEDS: SILDENAFIL CITRATE 20 MG TABLET PO SCH ×3 (09:32→21:16)
[2023-02-04] MEDS: DOCUSATE NA 100 MG CAP PO SCH (09:32)
[2023-02-04] MEDS: ACETAMINOPHEN 325 MG TABLET PO PRN (14:00)
--- NOTE | 2023-02-04 16:18 | P.PN ---
Subjective Date of Service: 02/04/23 Chief Complaint: Low back pain, failure to thrive, leg weakness Patient has no new complaint. No issues overnight. Physical Examination - Vital Signs Temperature: 97.8 F Blood Pressure: 127/63 Pulse: 115 Respirations: 18 Pulse Ox (%): 92 Assessment And Plan - Plan Physical Exam: GEN: Alert, oriented, NAD, obese. HEENT: Normal conjunctiva, sclera anicteric CV: Regular rate and rhythm, no edema Pulm: Diminished at bases b/l, no crackles or wheezes. ABD: Soft, nontender, nondistended Neuro: Normal speech, normal affect, intact sensation vitals reviewed Problem List: Lower Back pain, chronic; progressive Generalized weakness, physical deconditioning history of CVA (~Jan 2022) with residual neurologic deficits Rheumatoid arthritis Dermatitis, nonspecific; improved Chronic diastolic CHF COPD, chronic Hypertension Hyperlipidemia GERD Anxiety/Depression Constipation Plan: Lower Back pain, chronic; progressive Generalized weakness, physical deconditioning history of CVA (~Jan 2022) with residual neurologic deficits Rheumatoid arthritis Dermatitis, nonspecific; improved Patient is deconditioned Imaging study not done due to patient's inability to tolerate pain when laying flat. PRN pain medication Continue current dose of prednisone. Continue PT Chronic diastolic CHF COPD, chronic Hypertension Hyperlipidemia GERD Continue home medications Anxiety/Depression. On Nortriptyline. Monitor On xanax 01/31 Constipation. Patient had a bowel movement with an enema Continue stool softeners. VTE: Lovenox Code: DNR Dispo: Home with home health pending Mika lift delivery.
[2023-02-04] MEDS: NORTRIPTYLINE HCL 25 MG CAP PO SCH (21:16)
[2023-02-04] MEDS: ATORVASTATIN 10 MG TAB PO SCH (21:16)
[2023-02-05 07:39] LABS: Absolute Lymphocytes (CBC) 2.5 K/uL (0.7-4.9); Hematocrit 40.7 % (36.0-45.0); Lymphocytes % 21.5 % (15.3-44.8); MCV 80.6 fL (80-100); MPV 8.2 fL (7.6-11.3); Platelets 289 thou/uL (152-406); RBC Red Blood Cell Count 5.05 M/uL (3.86-4.86)
[2023-02-05 07:48] LABS: Potassium 3.4 mEq/L (3.5-5.1)
--- NOTE | 2023-02-05 08:19 | P.DS ---
Admission Date: 01/26/23 Discharge Date: 02/05/23 [facility] Discharge Condition: [facility] Reason for Admission: Low back pain, failure to thrive, leg weakness Brief History of Present Illness: 62-year-old female patient with medical history significant for hyperlipidemia, hypertension, COPD, depression, history of CVA with residual neurologic deficits was evaluated for episode of inability to move around appropriately and leg weakness. Patient reported more leg weakness on the left side and which has been going on for a while. She also reported persistent low back pain with shooting pain down into the lower extremities worse on the left than the right. She also has inability to lay flat. Because of the concerns she has had issues with appropriate toileting and has had loose stools and was found to be significantly unkempt on initial evaluation by emergency medical personnel. She was brought into the emergency room for evaluation. Initial review suggested possible underlying pathology in the lumbosacral region. She was admitted for further management. Hospital Course: Diagnosis: Lower Back pain, chronic; progressive Generalized weakness, physical deconditioning history of CVA (~Jan 2022) with residual neurologic deficits Rheumatoid arthritis Dermatitis, nonspecific; improved Chronic diastolic CHF COPD, chronic Hypertension Hyperlipidemia GERD Anxiety/Depression Constipation Plan: Lower Back pain, chronic; progressive Generalized weakness, physical deconditioning history of CVA (~Jan 2022) with residual neurologic deficits Rheumatoid arthritis Dermatitis, nonspecific; improved Patient is deconditioned Imaging study not done due to patient's inability to tolerate pain when laying flat. Managed with PRN pain medication and low-dose prednisone She received PT. She was denied inpatient rehab. Patient opted for home with home health. She is clinically stable for discharge. Chronic diastolic CHF COPD, chronic Hypertension Hyperlipidemia GERD Continued home medications Anxiety/Depression. On citalopram. Was on nortriptyline briefly On xanax 01/31. Home medications resumed on discharge. Constipation. Patient had a bowel movement with an enema Placed on stool softeners. Vital Signs/Physical Exam: Temp Pulse Resp BP Pulse Ox 97.8 F 99 H 18 146/72 H 96 02/05/23 04:00 02/05/23 04:00 02/05/23 04:00 02/05/23 04:00 02/05/23 04:00 General: Alert, In no apparent distress, Obese HEENT: Mucous membr. moist/pink Neck: JVD not distended Respiratory: Clear to auscultation bilaterally, Normal air movement Cardiovascular: No edema, Regular rate/rhythm, Normal S1 S2 Gastrointestinal: Soft and benign, Non-distended, No tenderness Musculoskeletal: No swelling Integumentary: No cyanosis Neurological: Normal strength at 5/5 x4 extr Laboratory Data at Discharge: WBC 11.70 thou/uL (4.3-10.9) H 02/05/23 07:08 Hgb 13.3 g/dL (12.0-15.0) 02/05/23 07:08 Hct 40.7 % (36.0-45.0) 02/05/23 07:08 Plt Count 289 thou/uL (152-406) 02/05/23 07:08 Sodium 132 mEq/L (136-145) L 02/05/23 07:08 Potassium 3.4 mEq/L (3.5-5.1) L 02/05/23 07:08 BUN 23 mg/dL (7-18) H 02/05/23 07:08 Creatinine 0.59 mg/dL (0.55-1.02) 02/05/23 07:08 Glucose 127 mg/dL (74-106) H 02/05/23 07:08 Phosphorus 4.0 mg/dL (2.5-4.9) 01/27/23 03:27 Magnesium 2.1 mg/dL (1.6-2.4) 02/01/23 02:10 Total Bilirubin 0.9 mg/dL (0.2-1.0) 01/26/23 16:30 AST 23 U/L (15-37) 01/26/23 16:30 ALT 23 U/L (13-56) 01/26/23 16:30 Alkaline Phosphatase 72 U/L (45-117) 01/26/23 16:30 Lipase 23 U/L (13-75) 01/26/23 16:30 Home Medications: Citalopram [Celexa*] 40 mg PO DAILY 09/16/15 Spironolactone [Aldactone*] 25 mg PO BID #60 tab 09/30/17 ALPRAZolam [Xanax*] 0.25 mg PO BID 01/11/18 Atorvastatin Calcium [Lipitor*] 10 mg PO DAILY 04/15/22 Bumetanide [Bumex*] 1 mg PO DAILY 04/15/22 Pantoprazole [Protonix Tab*] 40 mg PO DAILY 04/15/22 Potassium Chloride [Klor-Con M20] 20 meq PO DAILY 04/15/22 Sildenafil Citrate 20 mg PO TID 04/15/22 Fluticasone/Vilanterol [Breo Ellipta 100-25 Mcg Inhalr] 1 each IH DAILYPRN PRN 01/26/23 Liraglutide [Victoza 2-Colt] 18 units SQ DAILY 01/26/23 Metoprolol Tartrate [Lopressor*] 12.5 mg PO BID 01/26/23 Polyethyl Gly 3350 [Glycolax*] 17 gm PO DAILY PRN #30 udbot 02/05/23 predniSONE [Deltasone*] 10 mg PO DAILY #10 tab 02/05/23 New Medications: predniSONE [Deltasone*] 10 mg PO DAILY #10 tab Polyethyl Gly 3350 [Glycolax*] 17 gm PO DAILY PRN #30 udbot PRN Reason: Constipation Diet: ADA Activity: Fall precautions Followup: NONE,NONE [Primary Care Provider] - 1-2 Weeks Time spent managing pt's care (in minutes): 33
[2023-02-05] MEDS: BUMETANIDE 1 MG TABLET PO SCH (09:00)
[2023-02-05] MEDS: SPIRONOLACTONE 25 MG TABLET PO SCH (09:00)
[2023-02-05] MEDS: ENOXAPARIN 40 MG/0.4 ML SQ SCH (09:33)
[2023-02-05] MEDS: PANTOPRAZOLE 40MG TABLET PO SCH (09:35)
[2023-02-05] MEDS: predniSONE 10 MG TAB PO SCH (09:35)
[2023-02-05] MEDS: CITALOPRAM 10 MG TABLET PO SCH (09:35)
[2023-02-05] MEDS: DOCUSATE NA 100 MG CAP PO SCH (09:35)
[2023-02-05] MEDS: SILDENAFIL CITRATE 20 MG TABLET PO SCH ×2 (09:36→14:43)
[2023-02-05 12:18] VITALS: BP 138/75; TEMP 97.2
[2023-02-05] MEDS ORDERED: POTASSIUM 25 MEQ EFFERV TAB PO ONE (13:24)
[2023-02-05 18:51] VITALS: O2SAT 92
== END 2023-02-05 16:08 | disposition home health service (06) | DRG 641 ==
LOC: ER 15:30 → ERHOLD 19:57 → 2ND 22:19
PROVIDERS: ADMIT Internal Medicine Nephrology; ATTEND Internal Medicine
DX: R62.7 Adult failure to thrive (principal); I50.32 Chronic diastolic (congestive) heart failure; Z68.42 Body mass index [BMI] 45.0-49.9, adult; E66.01 Morbid (severe) obesity due to excess calories; I11.0 Hypertensive heart disease with heart failure; G89.29 Other chronic pain; M54.50 Low back pain, unspecified; J44.9 Chronic obstructive pulmonary disease, unspecified; E78.5 Hyperlipidemia, unspecified; K21.9 Gastro-esophageal reflux disease without esophagitis; F32.A Depression, unspecified; M06.9 Rheumatoid arthritis, unspecified; K59.00 Constipation, unspecified; F41.9 Anxiety disorder, unspecified; G62.9 Polyneuropathy, unspecified; L30.9 Dermatitis, unspecified; I69.398 Other sequelae of cerebral infarction; Z66 Do not resuscitate; Z88.8 Allergy status to other drugs, medicaments and biological substances; Z99.81 Dependence on supplemental oxygen; Z79.52 Long term (current) use of systemic steroids; Z79.01 Long term (current) use of anticoagulants; Z79.899 Other long term (current) drug therapy
CPT/HCPCS: 36415; 80048; 80053; 81001; 82947; 83690; 83735; 84100; 85025; 86140; 97110; 97112; 97116; 97140; 97163; 97530; 99285; J1650; J2405; J2920; J7030; J7512; J7799

== ENCOUNTER 2024-03-14 10:27 | Inpatient (IN) | payer OTHER ==
[2024-03-14] MEDS ORDERED: LEVALBUTEROL 1.25 MG/3 ML NEB ONE (10:46)
[2024-03-14] MEDS ORDERED: METHYLPREDNISOLONE 125 MG INJ ONE (10:46)
--- NOTE | 2024-03-14 11:36 | RAD REPORT ---
Procedure: Chest Single View HISTORY: Cough COMPARISON: 2022 FINDINGS: Bilateral pulmonary opacities appear chronic. The lungs appear clear of acute infiltrate. No significant pleural effusion noted. The heart is moderately enlarged. IMPRESSION: No acute abnormality is displayed.
[2024-03-14 11:39] LABS: Absolute Lymphocytes (CBC) 0.3 K/uL (0.7-4.9); Absolute Monocytes 0.4 K/uL (0.1-1.3); Absolute Neutrophil 4.1 K/uL (1.8-8.0); Basophils % 0.4 % (0-1.3); Eosinophils % 0.1 % (0-4.4); Hemoglobin 12.6 g/dL (12.0-15.0); Lymphocytes % 5.9 % (15.3-44.8); MCH 26.9 pg (27.0-35.0); MCHC 31.4 g/dL (32.0-36.0); MCV 85.6 fL (80-100); MPV 9.4 fL (7.6-11.3); Neutrophils % 85.6 % (41.7-73.7); Platelets 198 thou/uL (152-406); RBC Red Blood Cell Count 4.67 M/uL (3.86-4.86); Red Cell Distribution Width 16.6 % (12.1-15.2)
[2024-03-14 11:53] LABS: PT Prothrombin Time 13.3 SECONDS (9.4-12.5); PTT, Activated Partial Thromb 23.2 SECONDS (24.3-36.9); Protime INR 1.19
[2024-03-14 11:59] LABS: SARS-CoV-2 Antigen CONTROL BLUE LINE VIS/BG OK; SARS-CoV-2 Antigen Rapid Res Negative (Negative)
[2024-03-14] MEDS ORDERED: MORPHINE 2 MG/ML SYR ONE (12:10)
[2024-03-14] MEDS ORDERED: ONDANSETRON 4 MG/2 ML VIAL ONE ×3 (12:10→22:43)
[2024-03-14 12:29] LABS: Albumin 3.3 g/dL (3.4-5.0); Albumin/Globulin Ratio 0.6 (1.1-1.8); Anion Gap 5.6 mEq/L (5.0-15.0); Bilirubin Total 2.1 mg/dL (0.2-1.0); Globulin 5.2 g/dL (2.3-3.5); Potassium 3.6 mEq/L (3.5-5.1); Protein, Total 8.5 g/dL (6.4-8.2)
[2024-03-14] MEDS ORDERED: OSELTAMIVIR 75 MG CAP PO ONE (12:46)
[2024-03-14] MEDS ORDERED: NA CHLORIDE 0.9% 500 ML ONE (12:46)
[2024-03-14 12:56] LABS: Platelet Estimate ADEQ; White Blood Cell Scan OK (OK)
--- NOTE | 2024-03-14 12:56 | ER ---
Nurse's Notes [facility] Name: Gaye Castro Age: 63 yrs Sex: Female : 1960 Arrival Date: 03/14/2024 Time: 10:27 Bed 8 Private MD: Diagnosis: Influenza due to identified novel influenza A virus with other respiratory manifestations;COPD/ Chronic obstructive pulmonary disease with (acute) exacerbation Presentation: 03/14 10:39 Chief complaint: EMS states: SOB AND FLU-LIKE S/S x3 DAYS SINCE ADMITTED. bp Coronavirus screen: cough unrelated to allergies, shortness of breath. Ebola Screen: No symptoms or risks identified at this time. Initial Sepsis Screen: Does the patient meet any 2 criteria? No. Patient's initial sepsis screen is negative. Does the patient have a suspected source of infection? No. Patient's initial sepsis screen is negative. Risk Assessment: Do you want to hurt yourself or someone else? Patient reports no desire to harm self or others. Onset of symptoms is unknown. 10:39 Method Of Arrival: EMS[facility] bp 10:39 Acuity: DEBBY 3 bp Triage Assessment: 10:40 General: Appears in no apparent distress. Behavior is calm, cooperative, appropriate bp for age. Pain: Denies pain. EENT: No deficits noted. Neuro: No deficits noted. Cardiovascular: No deficits noted. Respiratory: Reports shortness of breath. GI: No signs and/or symptoms were reported involving the gastrointestinal system. : No signs and/or symptoms were reported regarding the genitourinary system. Derm: No deficits noted. Musculoskeletal: Swelling present in right leg and left leg. Historical: - Allergies: 10:40 Ibuprofen; triggers GI bleeding; bp - PMHx: 10:40 Anxiety; CHF; COPD; Depression; Hypertension; hypoxia; lymphedema; Pneumonia; PULMONARY bp HYPERTENSION; Sleep Apnea; small heart and lungs; uses home o2; - Immunization history:: Adult Immunizations up to date. - Infectious Disease History:: Denies. - Social history:: Smoking status: unknown. - Family history:: not pertinent. - Hospitalizations: : No recent hospitalization is reported. Screenin:41 [facility] ED Fall Risk Assessment (Adult) History of falling in the last 3 months, bp including since admission No falls in past 3 months (0 pts) Confusion or Disorientation No (0 pts) Intoxicated or Sedated No (0 pts) Impaired Gait Yes (1 pt) Mobility Assist Device Used No (0 pt) Altered Elimination No (0 pt) Score/Fall Risk Level 0 - 2 = Low Risk Oriented to surroundings. Abuse screen: Denies threats or abuse. Denies injuries from another. Nutritional screening: No deficits noted. Tuberculosis screening: No symptoms or risk factors identified. Assessment: 10:41 General: SEE TRIAGE. bp 11:48 Reassessment: No changes from previously documented assessment. Patient is alert, bp oriented x 3, equal unlabored respirations, skin warm/dry/pink. 12:28 Reassessment: SPO2 DECREASED ON 6LNC, MD NOTIFIED. PT CHANGED TO NRB MASK. bp 15:39 Reassessment: PT PLACED ON BIPAP 16/8, RATE 20, FIO2 100%. bp 19:13 Reassessment: Patient appears in no apparent distress at this time. Patient and/or [facility] family updated on plan of care and expected duration. Pain level reassessed. Patient is alert, oriented x 3, equal unlabored respirations, skin warm/dry/pink. pt is resting with eyes closed breathing is even unlabored with symmetrical rise and fall of chest on Bipap. 20:08 Reassessment: Patient appears in no apparent distress at this time. No changes from bm8 previously documented assessment. Patient and/or family updated on plan of care and expected duration. Pain level reassessed. 12 01:09 Reassessment: pt admitted to icu 6 report given to [facility]. bm8 Vital Signs: 03/14 10:39 BP 130 / 70; Pulse 84; Resp 16; Temp 98; Pulse Ox 95% ; bp 11:48 BP 159 / 91; Pulse 97; Resp 16; Pulse Ox 95% ; bp 12:27 BP 117 / 82; Pulse 104; Resp 28; Pulse Ox 95% on 13 lpm Non-rebreather mask; bp 15:39 BP 135 / 73; Pulse 97; Resp 20; Pulse Ox 97% ; bp 17:00 BP 125 / 74; Pulse 98; Resp 20; Pulse Ox 85% ; FiO2 100 %; bp 19:13 BP 133 / 78; Pulse 85; Resp 25; Temp 98.2; Pulse Ox 94% on BiPAP; FiO2 80 %; Pain 0/10; bm8 20:08 BP 122 / 66; Pulse 72; Resp 25; Temp 98.2; Pulse Ox 98% on BiPAP; FiO2 80 %; Pain 0/10; bm8 19:13 Pain Scale: Adult bm8 20:08 Pain Scale: Adult bm8 [place]it Coma Score: 19:13 Eye Response: spontaneous(4). Motor Response: obeys commands(6). Verbal Response: bm8 oriented(5). Total: 15. 20:08 Eye Response: spontaneous(4). Motor Response: obeys commands(6). Verbal Response: bm8 oriented(5). Total: 15. ED Course: 10:31 Patient arrived in ED. rn 10:31 Kareem Davenport MD is Attending Physician. rn 10:39 Chest Single View XRAY In Process Unspecified. EDMS 10:39 Regis Tate RN is Primary Nurse. bp 10:40 Triage completed. bp 10:40 Arm band placed on. bp 10:41 Patient has correct armband on for positive identification. bp 11:20 Initial lab(s) drawn, by me, sent to lab. First set of blood cultures drawn by me, bp Second set of blood cultures drawn by me. 11:23 Inserted saline lock: 22 gauge in right forearm, using aseptic technique. Blood bp collected. Flushed with 10 mL NS. 12:55 May Levin MD is Hospitalizing Provider. rn 19:00 Report given to olga Stacy. bm8 19:00 Provided Education on: need for admission. Client placed on continuous cardiac and bm8 pulse oximetry monitoring. NIBP monitoring applied. laboratory monitor on. Pulse ox on. NIBP on. Door closed. Noise minimized. Visitors limited. Warm blanket given. Pillow given. Verbal reassurance given. Head of bed elevated. 19:00 No provider procedures requiring assistance completed. bm8 Administered Medications: 11:00 Drug: MethylPrednisoLONE IVP 125 mg IVP once Route: IVP; Site: right forearm; bp 12:02 Follow up: Response: No adverse reaction bp 11:00 Drug: Levalbuterol Inhalation 1.25 mg Inhalation once Route: Inhalation; bp 19:15 Follow up: Response: No adverse reaction bm8 11:00 Drug: Levalbuterol Inhalation 1.25 mg Inhalation once Route: Inhalation; bp 19:15 Follow up: Response: No adverse reaction bm8 12:13 Drug: Ondansetron IVP 4 mg IVP once; over 2 minutes Route: IVP; Site: right forearm; bp 17:08 Follow up: Response: No adverse reaction bp 12:13 Drug: morphine IVP or IV 2 mg IVP once over 4 mins Route: IVP; Infused Over: 4 mins; bp Site: right forearm; 17:08 Follow up: Response: No adverse reaction bp 12:45 Drug: NS 0.9% IV 500 ml 500 ml IV at 1 bolus once; to be given as a bolus over 30 bp minutes Volume: 500 ml; Route: IV; Rate: 1 bolus; Site: right forearm; 17:08 Follow up: IV Status: Completed infusion bp 13:12 Drug: Oseltamivir PO 75 mg PO once Route: PO; bp 17:07 Follow up: Response: No adverse reaction bp 13:20 Drug: Zithromax IVPB 500 mg IVPB once over 1 hrs; mix in 250 mL NS Route: IVPB; Infused bp Over: 1 hrs; Site: right forearm; 17:07 Follow up: IV Status: Completed infusion bp Medication: 10:41 VIS not applicable for this client. bp Outcome: 12:55 Decision to Hospitalize by Provider. rn 03/15 02:16 Patient left the ED. bm8 Signatures: Dispatcher [employer] EDKareem Lacey MD MD rn Peltier, Brian, RN RN bp McDonald, Brad, RN RN bm8
--- NOTE | 2024-03-14 12:56 | EDPHYS ---
Physician Documentation [facility] Name: Gaye Castro Age: 63 yrs Sex: Female : 1960 Arrival Date: 03/14/2024 Time: 10:27 Bed 8 Private MD: ED Physician Kareem Davenport HPI: 03/14 11:46 This 63 yrs old Female presents to ER via EMS with complaints of sob. rn 11:46 The patient has shortness of breath at rest, with light activity. Onset: The rn symptoms/episode began/occurred 3 day(s) ago. Duration: The symptoms are continuous. The patient's shortness of breath is aggravated by exertion, light activity, supine position. Severity of symptoms: At their worst the symptoms were moderate in the emergency department the symptoms are unchanged. The patient has experienced similar episodes in the past. Patient reports feeling sick for 2 or 3 days. is in the hospital with flu and pneumonia and volume overload. She reports not has not been taking her fluid pills. Reports productive cough and chills. No chest pain. No abdominal pain.. Historical: - Allergies: 10:40 Ibuprofen; triggers GI bleeding; bp - PMHx: 10:40 Anxiety; CHF; COPD; Depression; Hypertension; hypoxia; lymphedema; Pneumonia; PULMONARY bp HYPERTENSION; Sleep Apnea; small heart and lungs; uses home o2; - Immunization history:: Adult Immunizations up to date. - Infectious Disease History:: Denies. - Social history:: Smoking status: unknown. - Family history:: not pertinent. - Hospitalizations: : No recent hospitalization is reported. ROS: 11:46 Constitutional: Negative for fever, chills, and weight loss, ENT: Negative for injury, rn pain, and discharge, Neck: Negative for injury, pain, and swelling, Cardiovascular: Negative for chest pain, palpitations, and edema, Respiratory: Positive for cough and shortness of breath Abdomen/GI: Negative for abdominal pain, nausea, vomiting, diarrhea, and constipation, MS/Extremity: Positive for lower extremity swelling and edema Skin: Negative for injury, rash, and discoloration, Neuro: Positive for generalized weakness Exam: 11:46 Constitutional: This is a well developed, well nourished patient who is awake, alert, rn mild tachypnea ENT: No stridor Cardiovascular: Regular rate and rhythm. No pulse deficits. Respiratory: Mild to moderate tachypnea, diminished breath sounds at bases, faint wheezing. Abdomen/GI: Soft, non-tender MS/ Extremity: Mohler edema bilateral lower extremities, left worse than right. Signs of chronic lymphedema 2+ edema. Neuro: Awake and alert, GCS 15, oriented to person, place, time, and situation. Cranial nerves II-XII grossly intact. Motor strength 5/5 in all extremities. Sensory grossly intact. Cerebellar exam normal. Normal gait. 14:43 ECG was reviewed by the Attending Physician. rn Vital Signs: 10:39 BP 130 / 70; Pulse 84; Resp 16; Temp 98; Pulse Ox 95% ; bp 11:48 BP 159 / 91; Pulse 97; Resp 16; Pulse Ox 95% ; bp 12:27 BP 117 / 82; Pulse 104; Resp 28; Pulse Ox 95% on 13 lpm Non-rebreather mask; bp 15:39 BP 135 / 73; Pulse 97; Resp 20; Pulse Ox 97% ; bp 17:00 BP 125 / 74; Pulse 98; Resp 20; Pulse Ox 85% ; FiO2 100 %; bp 19:13 BP 133 / 78; Pulse 85; Resp 25; Temp 98.2; Pulse Ox 94% on BiPAP; FiO2 80 %; Pain 0/10; bm8 20:08 BP 122 / 66; Pulse 72; Resp 25; Temp 98.2; Pulse Ox 98% on BiPAP; FiO2 80 %; Pain 0/10; bm8 19:13 Pain Scale: Adult bm8 20:08 Pain Scale: Adult bm8 [place] Coma Score: 19:13 Eye Response: spontaneous(4). Motor Response: obeys commands(6). Verbal Response: bm8 oriented(5). Total: 15. 20:08 Eye Response: spontaneous(4). Motor Response: obeys commands(6). Verbal Response: bm8 oriented(5). Total: 15. MDM: 10:31 Medical Screening Exam initiated rn 12:53 Differential diagnosis: Chronic Obstructive Pulmonary Disease Myocardial Infarction rn pneumonia, Pneumothorax pulmonary edema. Data reviewed: vital signs, nurses notes, lab test result(s), radiologic studies, plain films, and as a result, I will admit patient. Consideration of Admission/Observation Patient was admitted/placed on observation. Escalation of care including admission/observation considered. Counseling: I had a detailed discussion with the patient and/or guardian regarding the historical points, exam findings, and any diagnostic results supporting the discharge/admit diagnosis, lab results, radiology results, the need for further work-up and treatment in the hospital. Response to treatment: the patient's symptoms have mildly improved after treatment, and as a result, I will admit patient. ED course: I personally spent 35 minutes engaged in work directly related to the individual patient's care. This does not include any time spent performing procedures. The patient has been deemed critically ill because of COPD exacerbation in the setting of influenza infection, requiring multiple nebulizer treatments, IV steroids and resuscitation in the setting of congestive heart failure. Also organization of admission.. 12:56 ED course: Patient with influenza, infection due to viral illness, no bacterial illness rn identified at this time. 12 10:31 Order name: Blood Culture Adult (2) rn 03/14 10:31 Order name: CBC with Diff; Complete Time: 13:05 rn 03/14 10:31 Order name: CMP; Complete Time: 12:46 rn 03/14 10:31 Order name: Lactate w/ 2H reflex if indic.; Complete Time: 12:09 rn 03/14 10:31 Order name: Protime (+inr); Complete Time: 12:09 rn 03/14 10:31 Order name: Ptt, Activated; Complete Time: 12:09 rn 03/14 10:31 Order name: Flu; Complete Time: 12:09 rn 03/14 10:31 Order name: SARS-COV-2 Antigen Rapid; Complete Time: 12:09 rn 03/14 10:32 Order name: BNP; Complete Time: 12:46 rn 03/14 12:58 Order name: CBC Smear Scan; Complete Time: 13:05 EDNY 03/14 14:44 Order name: CBC with Automated Diff EDNY 03/14 14:44 Order name: Comprehensive Metabolic Panel EDNY 03/14 14:44 Order name: Magnesium EDMS 03/14 14:44 Order name: Thyroid Stimulating Hormone EDNY 03/14 14:44 Order name: Lipid Profile EDMS 03/14 14:44 Order name: Lipid Profile EDNY 03/14 14:44 Order name: ABG Arterial Blood Gas EDNY 03/14 17:40 Order name: ABG Arterial Blood Gas EDNY 03/14 23:44 Order name: ABG Arterial Blood Gas EDMS 03/14 10:31 Order name: Chest Single View XRAY; Complete Time: 11:42 rn 03/14 10:31 Order name: Accucheck; Complete Time: 10:44 rn 03/14 10:31 Order name: Cardiac monitoring; Complete Time: 10:44 rn 12 10:31 Order name: EKG - Nurse/Tech; Complete Time: 10:40 rn 03/14 10:31 Order name: IV Saline Lock - Large Bore; Complete Time: 11:39 rn 03/14 10:31 Order name: Labs collected and sent; Complete Time: 11:39 rn 03/14 10:31 Order name: O2 Per Protocol; Complete Time: 10:44 rn 03/14 10:31 Order name: O2 Sat Monitoring; Complete Time: 10:44 rn 03/14 10:31 Order name: Vital Signs; Complete Time: 10:44 rn 03/14 11:53 Order name: Labs collected and sent: recollect light green top; Complete Time: 12:02 bd EC:43 Rate is 79 beats/min. Rhythm is regular. Right axis deviation noted. QRS is positive in rn lead aVF and negative in lead I. QRS interval is normal. QT interval is normal. No Q waves. T waves are Inverted in leads II, III, aVF, V4, V5, V6. No ST changes noted. Clinical impression: NSR w/ Non-specific ST/T Changes. Interpreted by me. Reviewed by me. Administered Medications: 11:00 Drug: MethylPrednisoLONE IVP 125 mg IVP once Route: IVP; Site: right forearm; bp 12:02 Follow up: Response: No adverse reaction bp 11:00 Drug: Levalbuterol Inhalation 1.25 mg Inhalation once Route: Inhalation; bp 19:15 Follow up: Response: No adverse reaction bm8 11:00 Drug: Levalbuterol Inhalation 1.25 mg Inhalation once Route: Inhalation; bp 19:15 Follow up: Response: No adverse reaction bm8 12:13 Drug: Ondansetron IVP 4 mg IVP once; over 2 minutes Route: IVP; Site: right forearm; bp 17:08 Follow up: Response: No adverse reaction bp 12:13 Drug: morphine IVP or IV 2 mg IVP once over 4 mins Route: IVP; Infused Over: 4 mins; bp Site: right forearm; 17:08 Follow up: Response: No adverse reaction bp 12:45 Drug: NS 0.9% IV 500 ml 500 ml IV at 1 bolus once; to be given as a bolus over 30 bp minutes Volume: 500 ml; Route: IV; Rate: 1 bolus; Site: right forearm; 17:08 Follow up: IV Status: Completed infusion bp 13:12 Drug: Oseltamivir PO 75 mg PO once Route: PO; bp 17:07 Follow up: Response: No adverse reaction bp 13:20 Drug: Zithromax IVPB 500 mg IVPB once over 1 hrs; mix in 250 mL NS Route: IVPB; Infused bp Over: 1 hrs; Site: right forearm; 17:07 Follow up: IV Status: Completed infusion bp Disposition: 12:53 Critical Care:. rn Disposition Summary: 03/14/24 12:55 Hospitalization Ordered Notes: Hospitalization Status: Inpatient Admission rn Provider: May Levin rn Condition: Stable rn Problem: an acute exacerbation rn Symptoms: have improved rn Bed/Room Type: Standard rn Location: Intensive Care Unit(03/15/24 00:57) cg Room Assignment: 6-(03/15/24 00:57) cg Diagnosis - Influenza due to identified novel influenza A virus with other respiratory rn manifestations - COPD/ Chronic obstructive pulmonary disease with (acute) exacerbation rn Forms: - Medication Reconciliation Form rn - SBAR form rn - Leadership Thank You Letter internal revenue service agent time excluding procedures: 12:53 Critical care time: Bedside Care: 35 minutes. Total time: 35 minutes rn Signatures: Dispatcher [employer] EDMS Teressa Webber Shelly, POURED WALL FOREMAN-C POURED WALL FOREMAN-Csnw Kareem Davenport MD MD rn Garcia, Cindy, RN RN Regis Cabrera, Joe Ruiz RN, RN bm8 Corrections: (The following items were deleted from the chart) 10:32 10:32 BLOOD CULTURE*+BA.LAB.BRZ ordered. EDMS EDMS 10:32 10:32 CBC+H.LAB.BRZ ordered. EDMS EDMS 10:32 10:32 COMPREHENSIVE METABOLIC PANEL+C.LAB.BRZ ordered. EDMS EDMS 10:32 10:32 LACTATE+C.LAB.BRZ ordered. EDMS EDMS 10:32 10:32 PROTIME (+INR)+COAG.LAB.BRZ ordered. EDMS EDMS 10:32 10:32 PTT, ACTIVATED+COAG.LAB.BRZ ordered. EDMS EDMS 10:32 10:32 Influenza Screen (A \T\ B)+BA.LAB.BRZ ordered. EDMS EDMS 10:32 10:32 SARS-COV-2 Antigen Rapid+I.LAB.BRZ ordered. EDMS EDMS 10:32 10:32 PROBNP+C.LAB.BRZ ordered. EDMS EDMS 10:32 10:32 Chest Single View+RAD.RAD.BRZ ordered. EDMS EDMS 03/15 00:57 03/14 12:55 Telemetry/MedSurg (Inpatient) rn cg 03/15 00:57 03/14 12:55 rn cg
[2024-03-14 12:57] LABS: Blood Morphology Comment NOT SEEN (NOT SEEN)
[2024-03-14] MEDS ORDERED: AZITHROMYCIN 500 MG INJ IVPB ONE (13:17)
[2024-03-14] MEDS ORDERED: SODIUM CHLORIDE 0.9% 10ML INJ IV PRN (14:33)
--- NOTE | 2024-03-14 14:48 | P.HP ---
Certification for Inpatient Patient admitted to: Inpatient With expected LOS: >2 Midnights <WallMica Amor - Last Filed: 03/14/24 16:40> Patient History Date of Service: 03/14/24 Reason for admission: Acute respiratory failure, influenza History of Present Illness: Ms. Castro is a 63-year-old female with a past medical history of hypertension, CHF with diastolic dysfunction, pulmonary hypertension, obesity hypoventilation syndrome, lymphedema, anxiety, GERD, depression, and secondhand smoke exposure who presented to the emergency department with acute hypoxic respiratory failure secondary to her past medical history exacerbated by influenza A. Labs only significant for a very high BNP with morbid obesity. Chest x-ray read as no acute abnormality with findings of a moderately enlarged heart and bilateral pulmonary opacities that are described as chronic. On assessment patient is in moderate distress. She is on a nonrebreather in the emergency department and when it was taken off to give a p.o. medication her SpO2 dropped to 77%. Will get ABGs and placed BiPAP and admit to ICU. Home medications list reviewed: Yes - Past Medical/Surgical History Has patient received pneumonia vaccine in the past: No Diabetic: No -: HTN -: CHF, diastolic dysfunction -: COPD -: Lymphadema -: Obesity hypoventilation syndrome -: Anxiety -: GERD -: Morbid obesity -: Secondhand smoke exposure -: Depression -: none Psychosocial/ Personal History: Patient lives with her boyfriend - Family History Mother -: Heart disease, Hypertension, Diabetes, Other (see notes) Notes: dementia Sister -: Hypertension - Social History Smoking Status: Unknown if ever smoked Patient receptive to therapy: Yes (Secondhand smoke) Alcohol use: Yes CD- Drugs: No Caffeine use: Yes Place of Residence: Home <Mica Wall - Last Filed: 03/14/24 16:40> Date of Service: 03/14/24 <May Levin - Last Filed: 03/21/24 08:54> Allergies ibuprofen Adverse Reaction (Verified 01/26/23 23:35) irritates stomach ulcer Home Medications: Citalopram [Celexa*] 40 mg PO DAILY 09/16/15 Spironolactone [Aldactone*] 25 mg PO BID #60 tab 09/30/17 Atorvastatin Calcium [Lipitor*] 10 mg PO BEDTIME 04/15/22 Bumetanide [Bumex*] 1 mg PO DAILY 04/15/22 Pantoprazole [Protonix Tab*] 40 mg PO DAILY 04/15/22 Potassium Chloride [Klor-Con M20] 40 meq PO DAILY 04/15/22 Sildenafil Citrate 20 mg PO TID 04/15/22 Metoprolol Tartrate [Lopressor*] 25 mg PO BID 01/26/23 Albuterol Sulfate [Ventolin Hfa] 2 puff IH Q6HP PRN 03/15/24 Aspirin [Aspirin EC] 81 mg PO DAILY 03/15/24 Review of Systems 10-point ROS is otherwise unremarkable General: Weakness, Malaise, As per HPI Eyes: Unremarkable ENT: Unremarkable Respiratory: Cough, Shortness of Breath, SOB with Excertion, Wheezing Cardiovascular: Orthopnea, Paroxysmal Noc. Dyspnea, Edema Gastrointestinal: Unremarkable Genitourinary: Unremarkable Musculoskeletal: Unremarkable Integumentary: Unremarkable Neurological: Weakness Lymphatics: Unremarkable <Wall,Mica Mt - Last Filed: 03/14/24 16:40> Physical Examination - Physical Exam General: Alert, Oriented x3, Moderate distress, Obese HEENT: Atraumatic, Normocephalic Neck: Other (Short neck) Respiratory: Diminished, Expiratory wheezes, Other (Significant work of breathing with shallow respiration, desaturates to the 70s just taking off nonrebreather in the ED) Cardiovascular: Regular rate/rhythm, Edema Capillary refill: <2 Seconds Gastrointestinal: Soft and benign Musculoskeletal: No clubbing Integumentary: Other (Left lower extremity with rugated skin) Neurological: Normal tone, Normal affect, Abnormal speech (Panting) Lymphatics: No axilla or inguinal lymphadenopathy External genitalia: Deferred Rectal: Deferred - Studies Laboratory Data (last 24 hrs) 03/14/24 03/14/24 03/14/24 12:01 11:20 11:20 WBC 4.80 Hgb 12.6 Hct 40.0 Plt Count 198 PT 13.3 H INR 1.19 APTT 23.2 L Sodium 137 Potassium 3.6 BUN 8 Creatinine 0.50 L Glucose 126 H Total Bilirubin 2.1 H AST 43 H ALT 42 Alkaline Phosphatase 76 Microbiology Data (last 24 hrs): 03/14/24 11:20 Nasopharnyx Influenza Type A Antigen Screen - Final 03/14/24 11:20 Nasopharnyx Influenza Type B Antigen Screen - Final <Mica Wall - Last Filed: 03/14/24 16:40> Assessment and Plan - Plan Acute hypoxic respiratory failure with acidosis secondary to CHF, COPD exacerbation with influenza Admit to ICU Patient will likely need BiPAP ABG shows extreme CO2 retention with acidosis, BiPap placed Lasix with aggressive diuresis I&O Daily weight May need sedation for tolerance of BiPAP Pulmonary hypertension continue sildenafil Lasix Influenza A Tamiflu Respiratory isolation precautions Depression Continue citalopram Keep informed of health status and plan of care Continue home medications VTE/GI prophylaxis Discharge Plan: Home Plan to discharge in: Greater than 2 days - Advance Directives Does patient have a Living Will: No Does patient have a Durable POA for Healthcare: Yes - Code Status/Comfort Care Code Status Assessed: Yes Code Status: Full Code Critical Care: Yes <Mica Wall - Last Filed: 03/14/24 16:40> Date of Service: 03/14/24 Patient was seen and examined. Events of the last 24 hours have been noted. Spoke with with WILL regarding patient's clinical picture after evaluating and examining the patient independently. I performed a substantial part of the MDM during this patient's care today. I personally made or approved the documented management plan and acknowledge its risk of complications. I agree with the findings and documentation provided in the WILL's notes. patient was admitted to the ICU. Patient started on BiPAP support. Continue with steroids and antiviral therapy. Continue with antibiotic therapy. Gently diuresing patient blood pressure tolerates. Critical care time spent on patient care was greater than 45 minutes. <May Levin - Last Filed: 03/21/24 08:54>
[2024-03-14] MEDS ORDERED: DEXMEDETOMIDINE HCL 200 MCG in NA CHLORIDE 0.9% 98 ML IV SCH (15:26)
[2024-03-14 15:45] LABS: Arterial Blood Carboxyhemoglob 0.7 % (0-1.5); Blood O2 Saturation 95.3 % (92-98.5)
[2024-03-14 15:46] LABS: Blood Gas THB 13.1 g/dl (12-18)
[2024-03-14] MEDS ORDERED: FUROSEMIDE 40 MG/4 ML VIAL ONE (16:57)
[2024-03-14] MEDS: FUROSEMIDE 40 MG/4 ML VIAL IV SCH (17:00)
[2024-03-14 17:39] LABS: Arterial Blood Carboxyhemoglob 0.8 % (0-1.5); Blood Gas Oxyhemoglobin 90.9 % (94-97); Blood O2 Saturation 93.2 % (92-98.5)
[2024-03-14] MEDS: METOPROLOL TAR 25 MG TAB PO SCH (18:00)
[2024-03-14] MEDS: ALBUTEROL 2.5 MG/3 ML NEB SOL NEB SCH (19:00)
[2024-03-14] MEDS: IPRATROPIUM BROM 0.5MG/2.5ML NEB SCH (19:00)
[2024-03-14] MEDS: ATORVASTATIN 10 MG TAB PO SCH (21:00)
[2024-03-14] MEDS: OSELTAMIVIR 75 MG CAP PO SCH (21:00)
[2024-03-14] MEDS: SILDENAFIL CITRATE 20 MG TABLET PO SCH (21:00)
[2024-03-14] MEDS ORDERED: ATORVASTATIN 10 MG TAB ONE (21:26)
--- NOTE | 2024-03-14 22:39 | P.PN ---
Date of Service: 03/14/24 Call placed from staff that ABG not improved. Reviewed vent settings and medication orders. Call placed to pulmonary Dr. Price also. Recommended increasing EPAP, decreasing FiO2 discontinuing furosemide and adding IV Diamox.
[2024-03-14] MEDS: ONDANSETRON 4 MG/2 ML VIAL IV ONE (22:55)
[2024-03-14 23:41] LABS: Arterial Blood Carboxyhemoglob 0.8 % (0-1.5); Blood Gas Oxyhemoglobin 93.6 % (94-97); Blood Gas THB 13.4 g/dl (12-18); Blood O2 Saturation 93.1 % (92-98.5)
[2024-03-15 05:09] LABS: Arterial Blood Carboxyhemoglob 0.9 % (0-1.5); Blood Gas Oxyhemoglobin 89.1 % (94-97); Blood O2 Saturation 91.4 % (92-98.5)
[2024-03-15 06:04] LABS: Absolute Lymphocytes (CBC) 0.3 K/uL (0.7-4.9); Absolute Monocytes 0.4 K/uL (0.1-1.3); Absolute Neutrophil 2.9 K/uL (1.8-8.0); Hematocrit 39.3 % (36.0-45.0); Hemoglobin 12.5 g/dL (12.0-15.0); Lymphocytes % 8.1 % (15.3-44.8); MCH 27.4 pg (27.0-35.0); MCHC 31.9 g/dL (32.0-36.0); MCV 85.8 fL (80-100); MPV 8.5 fL (7.6-11.3); Neutrophils % 80.9 % (41.7-73.7); Nucleated Red Blood Cells % 0.3 % (0-0); Platelets 173 thou/uL (152-406); RBC Red Blood Cell Count 4.58 M/uL (3.86-4.86); Red Cell Distribution Width 16.9 % (12.1-15.2)
[2024-03-15 06:30] LABS: Albumin 3.1 g/dL (3.4-5.0); Albumin/Globulin Ratio 0.6 (1.1-1.8); Anion Gap 7.3 mEq/L (5.0-15.0); Bilirubin Total 1.8 mg/dL (0.2-1.0); Globulin 5.3 g/dL (2.3-3.5); Magnesium 1.9 mg/dL (1.6-2.4); Potassium 4.3 mEq/L (3.5-5.1); Protein, Total 8.4 g/dL (6.4-8.2); Thyroid Stimulating Hormone 0.405 uIU/mL (0.358-3.740)
[2024-03-15] MEDS: FLU (Fluarix Triv) TS24-25(6MOS UP)/PF 45 MCG/0.5 ML Syringe IM ONE (07:30)
[2024-03-15] MEDS: ENOXAPARIN 40 MG/0.4 ML SQ SCH (08:49)
[2024-03-15] MEDS: SPIRONOLACTONE 25 MG TABLET PO SCH ×2 (08:50→21:00)
[2024-03-15] MEDS: PANTOPRAZOLE 40 MG INJ IVP SCH (08:50)
[2024-03-15] MEDS: ASPIRIN EC 81 MG TAB PO SCH (08:50)
[2024-03-15] MEDS: CITALOPRAM 10 MG TABLET PO SCH (08:50)
[2024-03-15] MEDS: ONDANSETRON 4 MG/2 ML VIAL IV PRN (09:33)
[2024-03-15] MEDS: NA CHLORIDE 0.9% 1,000 ML IV ONE (10:20)
[2024-03-15] MEDS: HYDROCORTISONE SUC 100 MG INJ IV ONE (11:36)
[2024-03-15] MEDS: MIDODRINE HCL 5 MG TABLET PO ONE (11:36)
[2024-03-15] MEDS: MIDODRINE HCL 5 MG TABLET PO SCH (11:38)
--- NOTE | 2024-03-15 12:09 | P.CNS ---
Date of Consult: 03/15/24 Reason for Consult: Respiratory failure Chief Complaint: Acute respiratory failure, influenza History of Present Illness: Patient is 63 years of age sick for the past 3 days admitted with hypoxic hypercapnic respiratory failure history of COPD apnea noncompliant history of lymphedema and has never smoked or was exposed to secondhand drug she does take a bronchodilator at home was admitted to the ICU is currently alert and responsive Allergies ibuprofen Adverse Reaction (Verified 01/26/23 23:35) irritates stomach ulcer Home Medications: Citalopram [Celexa*] 40 mg PO DAILY 09/16/15 Spironolactone [Aldactone*] 25 mg PO BID #60 tab 09/30/17 Atorvastatin Calcium [Lipitor*] 10 mg PO BEDTIME 04/15/22 Bumetanide [Bumex*] 1 mg PO DAILY 04/15/22 Pantoprazole [Protonix Tab*] 40 mg PO DAILY 04/15/22 Potassium Chloride [Klor-Con M20] 40 meq PO DAILY 04/15/22 Sildenafil Citrate 20 mg PO TID 04/15/22 Metoprolol Tartrate [Lopressor*] 25 mg PO BID 01/26/23 Albuterol Sulfate [Ventolin Hfa] 2 puff IH Q6HP PRN 03/15/24 Aspirin [Aspirin EC] 81 mg PO DAILY 03/15/24 - Past Medical/Surgical History Diabetic: No -: HTN -: CHF, diastolic dysfunction -: COPD -: Lymphadema -: Obesity hypoventilation syndrome -: Anxiety -: GERD -: Morbid obesity -: Secondhand smoke exposure -: Depression -: Urinary hypertension -: none Psychosocial/ Personal History: Patient lives with her boyfriend - Family History Mother Medical History: Heart disease, Hypertension, Diabetes, Other (see notes) Notes: dementia Sister Medical History: Hypertension - Social History Smoking Status: Unknown if ever smoked Alcohol use: Yes CD- Drugs: No Caffeine use: Yes Place of Residence: Home Review of Systems 10-point ROS is otherwise unremarkable General: Weakness Respiratory: Shortness of Breath Physical Examination Temp Pulse Resp BP Pulse Ox 98.4 F 69 18 110/50 L 92 03/15/24 08:00 03/15/24 09:00 03/15/24 09:00 03/15/24 09:00 03/15/24 09:00 General: Alert, In no apparent distress, Oriented x3 Respiratory: Clear to auscultation bilaterally, Normal air movement Cardiovascular: Regular rate/rhythm, Normal S1 S2, Edema Gastrointestinal: Normal bowel sounds, Soft and benign Laboratory Data (last 24 hrs) 03/14/24 03/14/24 12:01 11:20 WBC 4.80 Hgb 12.6 Hct 40.0 Plt Count 198 Sodium 137 Potassium 3.6 BUN 8 Creatinine 0.50 L Glucose 126 H Total Bilirubin 2.1 H AST 43 H ALT 42 Alkaline Phosphatase 76 - Problems (1) Acute and chronic respiratory failure with hypoxia Current Visit: Yes Status: Acute Plan: Patient is 63 years of age admitted with hypoxic hypercapnic respiratory failure I suspect his acute on chronic patient has never smoked has been exposed to secondhand smoke he only uses albuterol at home history of pulmonary hypertension history is reviewed mildly abnormal LFTs chest x-ray shows cardiomegaly interstitial changes some linear atelectasis patient is influenza A positive not sure why the patient is on sildenafil is normal echocardiogram before signs oxygenation stable titrate sat to 90% echocardiogram COMMENTS: 1. NORMAL LEFT VENTRICULAR EJECTION FRACTION 55-60% 2. TRACE TRICUSPID REGURGITATION 3. MILD PULMONIC INSUFFICIENCY 4. MILD DIASTOLIC DSYFUNCTION Is chronic hypoxic hypercapnic respiratory failure will benefit from a noninvasive ventilator
[2024-03-15 12:12] LABS: Thyroid Stimulating Hormone 0.576 uIU/mL (0.358-3.740)
[2024-03-15] MEDS: DULERA 200/5 (MOMETASONE/FORMOTEROL) INHALER IH SCH (15:14)
[2024-03-15] MEDS: METOPROLOL TAR 25 MG TAB PO SCH (21:00)
[2024-03-15] MEDS: ACETAZOLAMIDE 500 MG IV IV SCH (21:10)
[2024-03-16 06:54] LABS: Absolute Lymphocytes (CBC) 0.4 K/uL (0.7-4.9); Absolute Monocytes 0.8 K/uL (0.1-1.3); Absolute Neutrophil 5.1 K/uL (1.8-8.0); Basophils % 0.2 % (0-1.3); Eosinophils % 0.1 % (0-4.4); Hematocrit 38.3 % (36.0-45.0); Hemoglobin 11.9 g/dL (12.0-15.0); MCV 87.1 fL (80-100); Monocytes % 13.3 % (3.3-12.3); Neutrophils % 80.4 % (41.7-73.7); Platelets 181 thou/uL (152-406); RBC Red Blood Cell Count 4.39 M/uL (3.86-4.86); Red Cell Distribution Width 16.7 % (12.1-15.2)
[2024-03-16 06:57] LABS: Anion Gap 3.8 mEq/L (5.0-15.0); Potassium 3.8 mEq/L (3.5-5.1)
[2024-03-16] MEDS: PNEUMOCOCCAL VACCINE 0.5 ML IMVAC ONE (08:00)
[2024-03-16] MEDS: PANTOPRAZOLE 40MG TABLET PO SCH (08:38)
[2024-03-16] MEDS ORDERED: CITALOPRAM 10 MG TABLET PO SCH (09:00)
--- NOTE | 2024-03-16 16:42 | P.PN ---
Subjective Date of Service: 03/16/24 Chief Complaint: Acute respiratory failure, influenza Subjective: Improving (Doing better still hypoxic) Review of Systems General: Weakness Respiratory: Cough Physical Examination - Vital Signs Temperature: 97.9 F Blood Pressure: 120/70 Pulse: 82 Respirations: 17 Pulse Ox (%): 96 - Physical Exam General: Alert, Oriented x3 Respiratory: Clear to auscultation bilaterally, Diminished Cardiovascular: Edema Assessment And Plan - Current Problems (Diagnosis) (1) Acute and chronic respiratory failure with hypoxia Current Visit: Yes Status: Acute Plan: Doing better .Change to PO Diamox, Add pred NIV pending. on Spironolactone, ECHO pending. Labs reviewed. Titrate sat to 88-90% COMMENTS: 1. NORMAL LEFT VENTRICULAR EJECTION FRACTION 55-60% 2. TRACE TRICUSPID REGURGITATION 3. MILD PULMONIC INSUFFICIENCY 4. MILD DIASTOLIC DSYFUNCTION Is chronic hypoxic hypercapnic respiratory failure will benefit from a noninvasive ventilator
--- NOTE | 2024-03-16 17:32 | P.CNS ---
Date of Consult: 03/16/24 Chief Complaint: Acute respiratory failure, influenza History of Present Illness: Patient with PMH of diastolic heart failure, pulmonary HTN on home oxygen, bed ridden, presented with worsening SOB and lower extremities edema, denies chest pain, no palpitations, no syncope. Allergies ibuprofen Adverse Reaction (Verified 01/26/23 23:35) irritates stomach ulcer Home medications list reviewed: Yes Home Medications: RX: Citalopram [Celexa*] 40 mg PO DAILY 09/16/15 RX: Spironolactone [Aldactone*] 25 mg PO BID #60 tab 09/30/17 RX: Atorvastatin Calcium [Lipitor*] 10 mg PO BEDTIME 04/15/22 RX: Bumetanide [Bumex*] 1 mg PO DAILY 04/15/22 RX: Pantoprazole [Protonix Tab*] 40 mg PO DAILY 04/15/22 RX: Potassium Chloride [Klor-Con M20] 40 meq PO DAILY 04/15/22 RX: Sildenafil Citrate 20 mg PO TID 04/15/22 RX: Metoprolol Tartrate [Lopressor*] 25 mg PO BID 01/26/23 Albuterol Sulfate [Ventolin Hfa] 2 puff IH Q6HP PRN 03/15/24 Aspirin [Aspirin EC] 81 mg PO DAILY 03/15/24 - Past Medical/Surgical History Diabetic: No -: HTN -: CHF, diastolic dysfunction -: COPD -: Lymphadema -: Obesity hypoventilation syndrome -: Anxiety -: GERD -: Morbid obesity -: Secondhand smoke exposure -: Depression -: Urinary hypertension -: none Psychosocial/ Personal History: Patient lives with her boyfriend - Family History Mother Medical History: Heart disease, Hypertension, Diabetes, Other (see notes) Notes: dementia Sister Medical History: Hypertension - Social History Smoking Status: Unknown if ever smoked Alcohol use: No CD- Drugs: No Caffeine use: Yes Place of Residence: Home Review of Systems 10-point ROS is otherwise unremarkable Physical Examination Temp Pulse Resp BP Pulse Ox 97.9 F 82 17 120/70 96 03/16/24 16:42 03/16/24 16:42 03/16/24 16:42 03/16/24 16:42 03/16/24 16:42 General: Alert, In no apparent distress HEENT: Atraumatic, PERRLA, Mucous membr. moist/pink, EOMI, Sclerae nonicteric Neck: Supple, 2+ carotid pulse no bruit, No LAD, Without JVD or thyroid abnormality Respiratory: Clear to auscultation bilaterally, Normal air movement Cardiovascular: Regular rate/rhythm, Normal S1 S2 Gastrointestinal: Normal bowel sounds, No tenderness Musculoskeletal: No tenderness Integumentary: No rashes Neurological: Normal gait, Normal speech, Normal tone, Normal affect Lymphatics: No axilla or inguinal lymphadenopathy - Problems (1) Acute on chronic diastolic heart failure Current Visit: No Status: Acute Plan: start patient on lasix drip at 2.5 mg/hr. continue spironlactone continue to monitor input and output and electrolytes.
[2024-03-16] MEDS: FUROSEMIDE 100 MG in NA CHLORIDE 0.9% 90 ML IV SCH (18:23)
[2024-03-16] MEDS: predniSONE 20 MG TAB PO SCH (19:51)
[2024-03-16] MEDS: BENZONATATE 100 MG CAP PO PRN (19:52)
[2024-03-16] MEDS ORDERED: acetaZOLAMIDE 250 MG TAB PO SCH (21:00)
[2024-03-17 06:01] LABS: Absolute Lymphocytes (CBC) 0.4 K/uL (0.7-4.9); Absolute Monocytes 0.6 K/uL (0.1-1.3); Absolute Neutrophil 5.3 K/uL (1.8-8.0); Basophils % 0.1 % (0-1.3); Hematocrit 37.1 % (36.0-45.0); Hemoglobin 11.9 g/dL (12.0-15.0); Lymphocytes % 5.9 % (15.3-44.8); MCH 27.8 pg (27.0-35.0); MCV 86.8 fL (80-100); MPV 8.8 fL (7.6-11.3); Platelets 165 thou/uL (152-406); RBC Red Blood Cell Count 4.27 M/uL (3.86-4.86); Red Cell Distribution Width 16.6 % (12.1-15.2)
[2024-03-17 06:21] LABS: Anion Gap 5.7 mEq/L (5.0-15.0); Magnesium 1.6 mg/dL (1.6-2.4); Potassium 3.7 mEq/L (3.5-5.1)
[2024-03-17] MEDS: POTASSIUM 25 MEQ EFFERV TAB PO ONE (07:57)
[2024-03-17] MEDS: MAGNESIUM SULFATE 1 gm IVPB 1 GM/100 ML BAG IV ONE (07:58)
[2024-03-17] MEDS: ACETAMINOPHEN 500 MG TAB PO PRN (07:58)
--- NOTE | 2024-03-17 10:56 | P.PN ---
Date of Service: 03/16/24 Subjective Patient still feeling really weak and frail. Respiratory status is improved. Still having some pain around her chest and abdomen area. Patient with multiple chronic medical issues and long-term prognosis remains very poor. Hypercapnia has improved. Physical Examination -Vitals Reviewed -Physical Exam General: Alert, Oriented x3, Moderate distress, Obese Respiratory: Diminished, Expiratory wheezes, small shallow breaths Cardiovascular: Regular rate/rhythm, Edema Gastrointestinal: Soft and benign Musculoskeletal: No clubbing Integumentary: Other (Left lower extremity with skin) Neurological: No focal deficits Assessment and Plan - Assessment/Plan Acute hypoxic respiratory failure with acidosis; secondary to CHF, COPD exacerbation with influenza Continue with BiPAP support at night. Continue with diuresing patient along with nebs, steroids, antibiotics. Pulmonary hypertension; most likely secondary pulmonary hypertension from obstructive sleep apnea continue sildenafil Lasix Influenza A Tamiflu Respiratory isolation precautions Depression Continue citalopram Keep informed of health status and plan of care Continue home medications VTE/GI prophylaxis Discharge Plan: Home Plan to discharge in: Greater than 2 days - Advance Directives Does patient have a Living Will: No Does patient have a Durable POA for Healthcare: Yes - Code Status/Comfort Care Code Status Assessed: Yes Code Status: Full Code Critical Care: Yes
[2024-03-17] MEDS: PNEUMOCOCCAL VACCINE 0.5 ML IMVAC ONE (11:00)
[2024-03-17] MEDS: FLU (Fluarix Triv) TS24-25(6MOS UP)/PF 45 MCG/0.5 ML Syringe IM ONE (11:00)
[2024-03-17] MEDS: CEFTRIAXONE 2,000 MG in NA CHLORIDE 0.9% 50 ML IV SCH (11:43)
[2024-03-18 05:51] LABS: Absolute Lymphocytes (CBC) 0.5 K/uL (0.7-4.9); Absolute Monocytes 0.4 K/uL (0.1-1.3); Absolute Neutrophil 3.3 K/uL (1.8-8.0); Hemoglobin 12.3 g/dL (12.0-15.0); Lymphocytes % 12.4 % (15.3-44.8); MCH 27.7 pg (27.0-35.0); MCHC 32.5 g/dL (32.0-36.0); MCV 85.1 fL (80-100); MPV 8.8 fL (7.6-11.3); Monocytes % 10.4 % (3.3-12.3); Neutrophils % 77.2 % (41.7-73.7); Nucleated Red Blood Cells % 0.1 % (0-0); Platelets 170 thou/uL (152-406); RBC Red Blood Cell Count 4.46 M/uL (3.86-4.86)
[2024-03-18 06:10] LABS: Anion Gap 4.3 mEq/L (5.0-15.0); BUN Blood Urea Nitrogen 17 mg/dL (7-18); Glomerular Filtration Rate 102 ml/min (=/>90); Glucose Level 194 mg/dL (74-106); Magnesium 1.8 mg/dL (1.6-2.4); Phosphorus 2.7 mg/dL (2.5-4.9); Potassium 3.3 mEq/L (3.5-5.1); Sodium Level 135 mEq/L (136-145)
[2024-03-18 06:11] LABS: Bicarbonate > 45 mEq/L (21-32)
[2024-03-18] MEDS: KCL 20 MEQ/100 mL IVPB 20 MEQ/100 ML BAG IV SCH (06:37)
[2024-03-18] MEDS: HYDROMORPHONE HCL 0.5 MG/0.5 ML INJ IV PRN (08:15)
--- NOTE | 2024-03-18 12:48 | P.PN ---
Subjective Date of Service: 03/18/24 Chief Complaint: Acute respiratory failure, influenza Subjective: No new changes, No C/O voiced, Tolerating diet, Ambulating, Improving Review of Systems 10-point ROS is otherwise unremarkable Physical Examination - Vital Signs Temperature: 97.5 F Blood Pressure: 112/70 Pulse: 64 Respirations: 15 Pulse Ox (%): 93 - Physical Exam General: Alert, In no apparent distress HEENT: Atraumatic, PERRLA, EOMI Neck: Supple, JVD not distended Respiratory: Clear to auscultation bilaterally, Normal air movement Cardiovascular: Regular rate/rhythm, Normal S1 S2 Gastrointestinal: Normal bowel sounds, No tenderness Musculoskeletal: No tenderness Integumentary: No rashes Neurological: Normal speech, Normal tone, Normal affect Lymphatics: No axilla or inguinal lymphadenopathy - Studies Medications List Reviewed: Yes Assessment And Plan - Current Problems (Diagnosis) (1) Acute on chronic diastolic heart failure Current Visit: No Status: Acute Plan: continue lasix drip at 2.5 mg/hr for another 24 hours then switch to Bumex 1 mg IV BID for another 24 hrs then switch to Bumex 1 mg po BID continue spironlactone continue to monitor input and output and electrolytes.
[2024-03-18] MEDS: ALBUMIN HUMAN 25% 12.5 GM, FUROSEMIDE 100 MG in NA CHLORIDE 0.9% 40 ML IV SCH (15:28)
--- NOTE | 2024-03-18 16:02 | EKG ---
Test Date: 2024-03-14 Test Time: 10:38:24 Furniture Sander: FABI MEASUREMENT RESULTS: Intervals: Rate: 79 DE: 196 QRSD: 96 QT: 380 QTc: 435 Kuna: P: 60 DE: 196 QRS: 111 T: -88 INTERPRETIVE STATEMENTS: Normal sinus rhythm Right axis deviation ST & T wave abnormality, consider inferior ischemia ST & T wave abnormality, consider anterolateral ischemia Abnormal ECG Compared to ECG 07/14/2022 12:04:12 Right-axis deviation now present ST (T wave) deviation now present T-wave abnormality no longer present Prolonged QT interval no longer present Possible ischemia still present Electronically Signed On 03-18-24 15:54:19 COMPUTER SOFTWARE ENGINEER by Samuel Brown
[2024-03-18] MEDS: ACETAZOLAMIDE 500 MG IV IV ONE (17:07)
[2024-03-18] MEDS: ALBUTEROL 2.5 MG/3 ML NEB SOL NEB PRN (19:24)
[2024-03-18] MEDS ORDERED: ACETAZOLAMIDE 500 MG IV IV SCH (21:00)
[2024-03-19 04:21] VITALS: BMI 42.5
[2024-03-19 05:44] LABS: Absolute Lymphocytes (CBC) 0.9 K/uL (0.7-4.9); Absolute Monocytes 0.4 K/uL (0.1-1.3); Absolute Neutrophil 2.5 K/uL (1.8-8.0); Basophils % 0.2 % (0-1.3); Hematocrit 38.9 % (36.0-45.0); Hemoglobin 12.4 g/dL (12.0-15.0); Lymphocytes % 23.2 % (15.3-44.8); MCH 27.1 pg (27.0-35.0); MCHC 31.9 g/dL (32.0-36.0); MPV 8.6 fL (7.6-11.3); Monocytes % 9.8 % (3.3-12.3); Neutrophils % 66.8 % (41.7-73.7); Nucleated Red Blood Cells % 0.1 % (0-0); Platelets 196 thou/uL (152-406); RBC Red Blood Cell Count 4.58 M/uL (3.86-4.86); Red Cell Distribution Width 16.2 % (12.1-15.2)
[2024-03-19 06:19] LABS: Anion Gap 2.6 mEq/L (5.0-15.0); Phosphorus 2.9 mg/dL (2.5-4.9); Potassium 3.6 mEq/L (3.5-5.1); Troponin High Sensitivity 41.4 pg/mL (<58.9)
--- NOTE | 2024-03-19 08:38 | RAD REPORT ---
EXAMINATION: ONE VIEW CHEST XR CLINICAL INDICATION: Increased Fio2 needs TECHNIQUE: Frontal chest projection is submitted. Examination is limited by patient positioning and t echnique. COMPARISON: 03/14/2024 FINDINGS: Moderate bilateral pulmonary opacities remain unchanged since prior studies and chronic in nature. Th e heart is moderately enlarged in size. No displaced fractures identified. IMPRESSION: Stable bilateral chronic appearing lung opacities. Moderate cardiomegaly.
--- NOTE | 2024-03-19 09:42 | P.PN ---
Subjective Date of Service: 03/19/24 Chief Complaint: Respiratory failure Subjective: Improving (Is improving still experiencing episodes of desaturation denies any fever or chills) Review of Systems General: Weakness Respiratory: Shortness of Breath Physical Examination - Vital Signs Temperature: 97.2 F Blood Pressure: 116/85 Pulse: 61 Respirations: 22 Pulse Ox (%): 95 - Physical Exam General: Alert, Oriented x3 Respiratory: Clear to auscultation bilaterally Cardiovascular: No edema, Regular rate/rhythm, Normal S1 S2 - Studies Medications List Reviewed: Yes Assessment And Plan - Current Problems (Diagnosis) (1) Chronic respiratory failure Current Visit: Yes Status: Acute Plan: Patient has hypoxic hypercapnic respiratory failure now chronic with underlying acute on chronic diastolic heart failure labs chemistries reviewed no evidence of sepsis is seems to have some atelectasis on the chest x-ray and p.o. Diamox with bronchodilators DC steroids tensive James infection considering stopping antibiotics Qualifiers: Respiratory failure complication: hypoxia and hypercapnia Qualified Code(s): J96.11 - Chronic respiratory failure with hypoxia; J96.12 - Chronic respiratory failure with hypercapnia
[2024-03-19] MEDS: POTASSIUM 25 MEQ EFFERV TAB PO ONE (10:00)
[2024-03-19] MEDS: acetaZOLAMIDE 250 MG TAB PO SCH (10:01)
[2024-03-19] MEDS: ARFORMOTEROL TARTRATE 15 MCG/2 ML VIAL.NEB NEB SCH (10:30)
[2024-03-19] MEDS ORDERED: ARFORMOTEROL TARTRATE 15 MCG/2 ML VIAL.NEB NEB SCH (19:00)
[2024-03-20 05:56] LABS: Absolute Lymphocytes (CBC) 2.2 K/uL (0.7-4.9); Absolute Neutrophil 3.4 K/uL (1.8-8.0); Basophils % 0.1 % (0-1.3); Hematocrit 40.1 % (36.0-45.0); Lymphocytes % 32.7 % (15.3-44.8); MCH 27.3 pg (27.0-35.0); MCHC 32.5 g/dL (32.0-36.0); MCV 84.2 fL (80-100); MPV 8.5 fL (7.6-11.3); Monocytes % 15.6 % (3.3-12.3); Neutrophils % 51.6 % (41.7-73.7); Nucleated Red Blood Cells % 0.2 % (0-0); Platelets 220 thou/uL (152-406); RBC Red Blood Cell Count 4.77 M/uL (3.86-4.86); Red Cell Distribution Width 16.2 % (12.1-15.2)
[2024-03-20 06:02] LABS: Anion Gap 5.8 mEq/L (5.0-15.0); Magnesium 2.2 mg/dL (1.6-2.4); Phosphorus 2.6 mg/dL (2.5-4.9); Potassium 3.8 mEq/L (3.5-5.1)
[2024-03-20] MEDS: POTASSIUM 25 MEQ EFFERV TAB PO ONE (08:41)
[2024-03-20] MEDS: METHYLPREDNISOLONE 125 MG INJ IV ONE (13:12)
--- NOTE | 2024-03-21 08:53 | P.PN ---
Date of Service: 03/17/24 Subjective Patient's respiratory status has improved. Weaned down to wall oxygen. Needing about 10 L of oxygen at this time. Continue to aggressively wean down. Seen by Cardiology and continue with aggressive diuresing. Patient started on Lasix drip. Physical Examination -Vitals Reviewed -Physical Exam General: Alert, Oriented x3, Moderate distress, Obese Respiratory: Diminished, Expiratory wheezes, small shallow breaths Cardiovascular: Regular rate/rhythm, Edema Gastrointestinal: Soft and benign Musculoskeletal: No clubbing Integumentary: Other (Left lower extremity with skin) Neurological: No focal deficits Assessment and Plan - Assessment/Plan Acute hypoxic respiratory failure with acidosis; secondary to CHF, COPD exacerbation with influenza Weaned down onto the wall oxygen at 10 L. Continue with gently diuresing. Seen by Cardiology and started on diuretics Pulmonary hypertension; most likely secondary pulmonary hypertension from obstructive sleep apnea continue sildenafil Lasix Influenza A Tamiflu Respiratory isolation precautions Depression Continue citalopram Keep informed of health status and plan of care Continue home medications VTE/GI prophylaxis Discharge Plan: Home Plan to discharge in: Greater than 2 days - Advance Directives Does patient have a Living Will: No Does patient have a Durable POA for Healthcare: Yes - Code Status/Comfort Care Code Status Assessed: Yes Code Status: Full Code Critical Care: Yes
--- NOTE | 2024-03-21 08:55 | P.PN ---
Date of Service: 03/18/24 Subjective Patient continues to improve with aggressive diuresing. Patient's respiratory status has improved and patient down to 6 L of wall oxygen. However, she does occasionally require more. Especially when she moves around. Continue with diuresing and appreciate Cardiology assistance along with Pulmonary assistance. Physical Examination -Vitals Reviewed -Physical Exam General: Alert, Oriented x3, Moderate distress, Obese Respiratory: Diminished, Expiratory wheezes, small shallow breaths Cardiovascular: Regular rate/rhythm, Edema Gastrointestinal: Soft and benign Musculoskeletal: No clubbing Integumentary: Other (Left lower extremity with skin) Neurological: No focal deficits Assessment and Plan - Assessment/Plan Acute hypoxic respiratory failure with acidosis; secondary to CHF, COPD exacer bation with influenza Patient continues to improve. Continue with antiviral therapy along with nebs and steroids. Continue with diuretics per Cardiology recommendation. Clinical symptoms are much better. Pulmonary hypertension; most likely secondary pulmonary hypertension from obstructive sleep apnea continue sildenafil Lasix Influenza A Tamiflu Respiratory isolation precautions Depression Continue citalopram Keep informed of health status and plan of care Continue home medications VTE/GI prophylaxis Discharge Plan: Home Plan to discharge in: Greater than 2 days - Advance Directives Does patient have a Living Will: No Does patient have a Durable POA for Healthcare: Yes - Code Status/Comfort Care Code Status Assessed: Yes Code Status: Full Code Critical Care: Yes
--- NOTE | 2024-03-21 08:57 | P.PN ---
Date of Service: 03/19/24 Subjective Patient is doing much better. Downgraded to medical floor. Patient with significant metabolic alkalosis so switched as he has a Sulamyd. Will decrease dose depending on bicarb levels. Physical Examination -Vitals Reviewed -Physical Exam General: Alert, Oriented x3, Moderate distress, Obese Respiratory: Diminished, Expiratory wheezes, small shallow breaths Cardiovascular: Regular rate/rhythm, Edema Gastrointestinal: Soft and benign Musculoskeletal: No clubbing Integumentary: Other (Left lower extremity with skin) Neurological: No focal deficits Assessment and Plan - Assessment/Plan Acute hypoxic respiratory failure with acidosis; secondary to CHF, COPD exacerbation with influenza Patient continues to improve. Continue with antiviral therapy along with nebs and steroids. Continue with diuretics per Cardiology recommendation. Clinical symptoms are much better. Patient did develop with metabolic alkalosis with the aggressive diuresing so we change the diuretics to assist is alive. Patient was given a couple doses of intravenous is either Sulamyd and switched over to oral per Pulmonary. Pulmonary hypertension; most likely secondary pulmonary hypertension from obstructive sleep apnea continue sildenafil Lasix Influenza A Tamiflu Respiratory isolation precautions Depression Continue citalopram Keep informed of health status and plan of care Continue home medications VTE/GI prophylaxis Discharge Plan: Home Plan to discharge in: Greater than 2 days - Advance Directives Does patient have a Living Will: No Does patient have a Durable POA for Healthcare: Yes - Code Status/Comfort Care Code Status Assessed: Yes Code Status: Full Code Critical Care: Yes
--- NOTE | 2024-03-21 08:58 | P.PN ---
Date of Service: 03/20/24 Subjective Patient continues to improve. Clinical symptoms are much better. She looks and feels much better. Continue with current plan of care. May change is he is alert my dosing depending on improvement of metabolic alkalosis. Physical Examination -Vitals Reviewed -Physical Exam General: Alert, Oriented x3, Moderate distress, Obese Respiratory: Diminished, Expiratory wheezes, small shallow breaths Cardiovascular: Regular rate/rhythm, Edema Gastrointestinal: Soft and benign Musculoskeletal: No clubbing Integumentary: Other (Left lower extremity with skin) Neurological: No focal deficits Assessment and Plan - Assessment/Plan Acute hypoxic respiratory failure with acidosis; secondary to CHF, COPD exacerbation with influenza Patient's clinical condition much better. On 08/09 L of while oxygen. Continue with diuretics with this is all mite and continue with neb treatments. Patient clinically doing much better. Plan to start physical therapy at this time. Pulmonary hypertension; most likely secondary pulmonary hypertension from obstructive sleep apnea continue sildenafil Lasix Influenza A Tamiflu Respiratory isolation precautions Depression Continue citalopram Keep informed of health status and plan of care Continue home medications VTE/GI prophylaxis Discharge Plan: Home Plan to discharge in: Greater than 2 days - Advance Directives Does patient have a Living Will: No Does patient have a Durable POA for Healthcare: Yes - Code Status/Comfort Care Code Status Assessed: Yes Code Status: Full Code Critical Care: Yes
[2024-03-21] MEDS: POTASSIUM CL SA 10 MEQ TAB PO ONE (09:24)
--- NOTE | 2024-03-21 10:21 | P.PN ---
Date of Service: 03/21/24 Subjective Awake, conversing well, reports feeling better no acute events overnight Clostridium in blood culture, no signs of sepsis or infection, no fever, suspect contamination. ROS 10 point ROS as noted above, otherwise negative Physical Exam General: Alert and Oriented x3, Obese, NAD Respiratory: Normal air movement, no accessory muscles used, on 8 LHF Cardiovascular: Regular rate/rhythm, Edema Gastrointestinal: Soft and benign on palpation, Musculoskeletal: No clubbing Integumentary: Other (Left lower extremity with skin) Neurological: No focal deficits Vitals Reviewed Problem list Acute hypoxic respiratory failure with acidosis; secondary to CHF, COPD exacerbation with influenza Obesity hypoventilation syndrome Influenza A Pulmonary hypertension; most likely secondary pulmonary hypertension from obstructive sleep apnea Depression Assessment and Plan Acute hypoxic respiratory failure with acidosis; secondary to CHF, COPD exacerbation with influenza Obesity hypoventilation syndrome Influenza A -Tamiflu, continue til complete -Respiratory isolation precautions -Bipap, refused last night -on 8 LHF oxygen supplementation -Rocephin -Chest xray reports "Stable bilateral chronic appearing lung opacities." -NIV approved and ready when discharged -Diamox, Duonebs, tessalone perrle, steroids Pulmonary hypertension; most likely secondary pulmonary hypertension from obstructive sleep apnea -continue sildenafil -Diamox -UOP 1700 ml 03/20 Depression -Continue citalopram -Keep informed of health status and plan of care VTE Lovenox Discharge Plan: Home Plan to discharge in: Greater than 2 days <Roma Mcneill - Last Filed: 03/21/24 10:26> Clinically gradually improving, currently high flow oxygen 8 L/min, followed home oxygen requirement 4 L/min, Acute on chronic hypoxic and hypercapnic respiratory failure Acute exacerbation of COPD Influenza pneumonia Positive blood culture of Clostridium due to contamination Will add prednisone 20 mg twice daily, continue DuoNeb, will planning on 7-day course of antibiotics, today is day 7 of ceftriaxone <REGAN Franklin - Last Filed: 03/21/24 16:21>
[2024-03-21] MEDS: predniSONE 20 MG TAB PO SCH (20:46)
[2024-03-21] MEDS: ENSURE MAX PROTEIN 330 ML LIQUID PO SCH (20:55)
[2024-03-22 07:09] LABS: Anion Gap 7.3 mEq/L (5.0-15.0); Potassium 4.3 mEq/L (3.5-5.1)
--- NOTE | 2024-03-22 17:32 | P.PN ---
Date of Service: 03/22/24 Subjective Feeling better, c/o some congestion, on 4 LNC which is her home oxygen level Rocephin completed ROS 10 point ROS as noted above, otherwise negative Physical Exam General: AAO x3, Obese, NAD Respiratory: Normal air movement, no accessory muscles used, cough, on 4 LNC Cardiovascular: RRR, Edema, S1 S2 present Gastrointestinal: Soft and benign on palpation, nontender Musculoskeletal: No clubbing Integumentary: Other (Left lower extremity with skin) Neurological: No focal deficits Vitals Reviewed Problem list Acute on chronic hypoxic and hypercapnic respiratory failure with acidosis Acute exacerbation of COPD d/t Influenza pneumonia Obesity hypoventilation syndrome Pulmonary hypertension; most likely secondary pulmonary hypertension from obstructive sleep apnea Depression Assessment and Plan Acute on chronic hypoxic and hypercapnic respiratory failure with acidosis Acute exacerbation of COPD d/t Influenza pneumonia Obesity hypoventilation syndrome -Tamiflu, continue til complete -Respiratory isolation precautions -Bipap, refused last night -Prednisone 20 mg BID -on 4 LHF oxygen supplementation -Rocephin completed 03/21 -Chest xray reports "Stable bilateral chronic appearing lung opacities." -NIV approved and ready when discharged -Diamox, Duonebs, tessalone perrle Pulmonary hypertension; most likely secondary pulmonary hypertension from obstructive sleep apnea -continue sildenafil -Diamox -UOP 1500 ml 03/21 Depression -Continue citalopram -Keep informed of health status and plan of care Positive blood culture of Clostridium due to contamination. VTE Lovenox Discharge Plan: Home Plan to discharge in: Greater than 2 days
[2024-03-23 04:53] LABS: Absolute Lymphocytes (CBC) 0.8 K/uL (0.7-4.9); Absolute Monocytes 0.4 K/uL (0.1-1.3); Absolute Neutrophil 8.9 K/uL (1.8-8.0); Basophils % 0.1 % (0-1.3); Hematocrit 40.2 % (36.0-45.0); Hemoglobin 13.1 g/dL (12.0-15.0); Lymphocytes % 7.9 % (15.3-44.8); MCH 27.2 pg (27.0-35.0); MCHC 32.5 g/dL (32.0-36.0); MCV 83.7 fL (80-100); MPV 8.9 fL (7.6-11.3); Monocytes % 4.3 % (3.3-12.3); Neutrophils % 87.7 % (41.7-73.7); Nucleated Red Blood Cells % 0.1 % (0-0); Platelets 235 thou/uL (152-406); Red Cell Distribution Width 16.2 % (12.1-15.2)
[2024-03-23 05:19] LABS: Anion Gap 8.1 mEq/L (5.0-15.0); Magnesium 2.4 mg/dL (1.6-2.4); Potassium 4.1 mEq/L (3.5-5.1)
[2024-03-23 05:41] LABS: Band Neutrophils 2 % (0-1); Blood Morphology Comment NOT SEEN (NOT SEEN); Differential Total Cells Count 100; Lymphocytes 8 % (15-42); Monocytes 5 % (0-10); Platelet Estimate ADEQ; Segmented Neutrophils 85 % (40-80)
--- NOTE | 2024-03-23 17:29 | P.PN ---
Date of Service: 03/23/24 Subjective Awake, still with congestion and cough Her boyfriend is her caregiver who was recently discharged two days ago, will evaluate for discharge tomorrow. continue supportive care. ROS 10 point ROS as noted above, otherwise negative Physical Exam General: Alert and oriented x3, Obese, NAD, conversing well Respiratory: symmetrical chest wall movement, cough, on 6 LNC Cardiovascular: RRR, Edema, S1 S2 present Gastrointestinal: Soft on palpation, nontender, normal active bowel sounds Musculoskeletal: No clubbing Integumentary: Other (Left lower extremity with skin) Neurological: No focal deficits Vitals Reviewed Problem list Acute on chronic hypoxic and hypercapnic respiratory failure with acidosis Acute exacerbation of COPD d/t Influenza pneumonia Obesity hypoventilation syndrome Pulmonary hypertension; most likely secondary pulmonary hypertension from obstructive sleep apnea Depression Assessment and Plan Acute on chronic hypoxic and hypercapnic respiratory failure with acidosis Acute exacerbation of COPD d/t Influenza pneumonia Obesity hypoventilation syndrome -Tamiflu complete -Respiratory isolation precautions -Bipap, refused last night -Prednisone 20 mg BID -on 4 L oxygen supplementation -Rocephin completed 03/21 -Chest xray reports "Stable bilateral chronic appearing lung opacities." -NIV approved and ready when discharged -Diamox, Duonebs, tessalone perrle Pulmonary hypertension; most likely secondary pulmonary hypertension from ob structive sleep apnea -continue sildenafil -Diamox -UOP 1500 ml 03/21 Depression -Continue citalopram -Keep informed of health status and plan of care Positive blood culture of Clostridium due to contamination. VTE Lovenox Discharge Plan: Home Plan to discharge in: Greater than 2 days
[2024-03-24 04:37] LABS: Absolute Lymphocytes (CBC) 0.7 K/uL (0.7-4.9); Absolute Monocytes 0.6 K/uL (0.1-1.3); Absolute Neutrophil 10.8 K/uL (1.8-8.0); Basophils % 0.2 % (0-1.3); Hematocrit 40.1 % (36.0-45.0); Hemoglobin 12.7 g/dL (12.0-15.0); Lymphocytes % 5.7 % (15.3-44.8); MCH 26.8 pg (27.0-35.0); MCHC 31.7 g/dL (32.0-36.0); MCV 84.5 fL (80-100); MPV 9.1 fL (7.6-11.3); Monocytes % 4.7 % (3.3-12.3); Neutrophils % 89.4 % (41.7-73.7); Platelets 241 thou/uL (152-406); RBC Red Blood Cell Count 4.74 M/uL (3.86-4.86); Red Cell Distribution Width 16.5 % (12.1-15.2)
[2024-03-24 05:06] LABS: Anion Gap 8.2 mEq/L (5.0-15.0); Magnesium 2.4 mg/dL (1.6-2.4); Phosphorus 3.5 mg/dL (2.5-4.9); Potassium 4.2 mEq/L (3.5-5.1)
--- NOTE | 2024-03-24 07:48 | P.DS ---
Admission Date: 03/14/24 Discharge Date: 03/24/24 Disposition: DC HOME/HOME HEALTH CARE Discharge Condition: GOOD Reason for Admission: Respiratory failure Consultations: Dr. Bravo Brief History of Present Illness: Ms. Castro is a 63-year-old female with a past medical history of hypertension, CHF with diastolic dysfunction, pulmonary hypertension, obesity hypoventilation syndrome, lymphedema, anxiety, GERD, depression, and secondhand smoke exposure who presented to the emergency department with acute hypoxic respiratory failure secondary to her past medical history exacerbated by influenza A. Labs only significant for a very high BNP with morbid obesity. Chest x-ray read as no acute abnormality with findings of a moderately enlarged heart and bilateral pulmonary opacities that are described as chronic. On assessment patient is in moderate distress. She is on a nonrebreather in the emergency department and when it was taken off to give a p.o. medication her SpO2 dropped to 77%. Will get ABGs and placed BiPAP and admit to ICU. Hospital Course: Ms. Nikki Baptiste is an 85-year-old female who was seen at this facility in January of this year with a past medical history of CVA, colitis, colon cancer, colectomy with reanastomosis, hypertension, congestive heart failure, moderate bilateral hydroureteronephrosis, . In the interim, at some point, she fell and has a left femur fracture and a left 2 part humeral fracture and was admitted to [facility] on 03/11/2024 with an additional diagnosis of C. difficile colitis. She was sent per EMS to the ED for complaint of abdominal pain. Labs in ED significant for a hemoglobin hematocrit of 8.1/26.3, platelets 318. Creatinine and electrolytes essentially normal, AST 100, ALT 57, alk phos greater than thousand, T. bili 0.8. Second significant hypoalbuminemia at 1.4, troponin 85.2, lactate negative at 1.7, urine with greater than 50 urine white blood cells, 2+ nitrites, and greater than [address] abdomen and pelvis with contrast impression "1. Pronounced anasarca with new moderate right greater than left pleural effusions, moderate ascites, and pronounced body wall edema. 2. Several bowel containing right lateral ventral hernias without high-grade obstruction however there could be a partial obstruction as some of the small bowel is borderline dilated upstream from the hernias. 3. Large volume of stool in the proximal colon. 4. Unchanged moderate right hydronephrosis. Left hydronephrosis has improved." At bedside patient is obtunded, jaundiced, with anasarca, tenderness to the abdomen which is generalized. Left arm in sling, pillows beneath bilateral knees, ecchymosis to chin. She is poorly responsive but opens her eyes to gentle palpation, oriented to name. [facility] contacted for more patient information and information on daughter listed as patient's contact. They have no record of her name or number. There is a consult to [facility] hospice but it is unclear whether this has been discussed with family. We will admit her for serial assessments and continued treatment of C. difficile with contact isolations while awaiting medardo parra. Of note on the 01/2024 admission, a surgical consult was obtained for hernia repair and the patient's advanced age and condition precluded any surgery as the risks are higher than the benefit. Vital Signs/Physical Exam: Temp Pulse Resp BP Pulse Ox 97.2 F 57 16 119/54 L 92 03/24/24 04:00 03/24/24 04:00 03/24/24 04:00 03/24/24 04:00 03/24/24 04:00 General: Alert, In no apparent distress, Oriented x3, Obese, Other (o2 at 4L - pt states she is back to baseline) HEENT: Atraumatic, Normocephalic Neck: Supple Respiratory: Normal air movement, Diminished Cardiovascular: Normal pulses, Regular rate/rhythm Capillary refill: <2 Seconds Gastrointestinal: Soft and benign Musculoskeletal: No clubbing, No swelling Integumentary: No rashes Neurological: Normal speech, Normal affect, Abnormal strength, Abnormal tone Lymphatics: No axilla or inguinal lymphadenopathy External genitalia: Deferred Rectal: Deferred Laboratory Data at Discharge: WBC 12.10 thou/uL (4.3-10.9) H 03/24/24 04:12 Hgb 12.7 g/dL (12.0-15.0) 03/24/24 04:12 Hct 40.1 % (36.0-45.0) 03/24/24 04:12 Plt Count 241 thou/uL (152-406) 03/24/24 04:12 PT 13.3 SECONDS (9.4-12.5) H 03/14/24 11:20 INR 1.19 03/14/24 11:20 APTT 23.2 SECONDS (24.3-36.9) L 03/14/24 11:20 Sodium 135 mEq/L (136-145) L 03/24/24 04:12 Potassium 4.2 mEq/L (3.5-5.1) 03/24/24 04:12 BUN 25 mg/dL (7-18) H 03/24/24 04:12 Creatinine 0.59 mg/dL (0.55-1.02) 03/24/24 04:12 Glucose 183 mg/dL (74-106) H 03/24/24 04:12 Phosphorus 3.5 mg/dL (2.5-4.9) 03/24/24 04:12 Magnesium 2.4 mg/dL (1.6-2.4) 03/24/24 04:12 Total Bilirubin 1.8 mg/dL (0.2-1.0) H 03/15/24 05:23 AST 61 U/L (15-37) H 03/15/24 05:23 ALT 58 U/L (13-56) H 03/15/24 05:23 Alkaline Phosphatase 77 U/L (45-117) 03/15/24 05:23 Triglycerides 50 mg/dL (<150) 03/15/24 05:23 Cholesterol 155 mg/dL (<200) 03/15/24 05:23 HDL Cholesterol 73 mg/dL (40-60) H 03/15/24 05:23 Cholesterol/HDL Ratio 2.12 03/15/24 05:23 Home Medications: Citalopram [Celexa*] 40 mg PO DAILY 09/16/15 Spironolactone [Aldactone*] 25 mg PO BID #60 tab 09/30/17 Atorvastatin Calcium [Lipitor*] 10 mg PO BEDTIME 04/15/22 Bumetanide [Bumex*] 1 mg PO DAILY 04/15/22 Pantoprazole [Protonix Tab*] 40 mg PO DAILY 04/15/22 Potassium Chloride [Klor-Con M20] 40 meq PO DAILY 04/15/22 Metoprolol Tartrate [Lopressor*] 25 mg PO BID 01/26/23 Albuterol Sulfate [Ventolin Hfa] 2 puff IH Q6HP PRN 03/15/24 Aspirin [Aspirin EC] 81 mg PO DAILY 03/15/24 Albuterol Neb [Proventil 0.083% Neb Soln] 2.5 mg NEB [id number] PRN #20 amp 03/23/24 Atorvastatin Calcium [Lipitor*] 10 mg PO BEDTIME tab 03/23/24 Benzonatate [Tessalon Perle*] 100 mg PO Q6H PRN #0 cap 03/23/24 Benzonatate [Tessalon Perle] 200 mg PO TID PRN #30 cap 03/23/24 Citalopram [Celexa*] 40 mg PO DAILY 03/23/24 Fluticasone/Umeclidin/Vilanter [Trelegy Ellipta 100-62.5-25] 1 each IH DAILY #1 03/23/24 Guaifenesin [Mucinex] 1,200 mg PO BID #14 03/23/24 Nebulizer 1 each QID #1 ea 03/23/24 Sildenafil Citrate [Revatio*] 20 mg PO TID 03/23/24 acetaZOLAMIDE [Acetazolamide] 250 mg PO BID #60 03/23/24 predniSONE [Prednisone*] 20 mg PO BID 3 Days #6 tab 03/23/24 Sildenafil Citrate 20 mg PO TID #90 tab 03/24/24 New Medications: acetaZOLAMIDE [Acetazolamide] 250 mg PO BID #60 Guaifenesin [Mucinex] 1,200 mg PO BID #14 Nebulizer 1 each QID #1 ea predniSONE [Prednisone*] 20 mg PO BID 3 Days #6 tab Albuterol Neb [Proventil 0.083% Neb Soln] 2.5 mg NEB [id number] PRN #20 amp PRN Reason: Shortness Of Breath Sildenafil Citrate 20 mg PO TID #90 tab Benzonatate [Tessalon Perle] 200 mg PO TID PRN #30 cap PRN Reason: Cough Fluticasone/Umeclidin/Vilanter [Trelegy Ellipta 100-62.5-25] 1 each IH DAILY #1 Physician Discharge Instructions: Ms. Nikki Baptiste is an 85-year-old female who was seen at this facility in January of this year with a past medical history of CVA, colitis, colon cancer, colectomy with reanastomosis, hypertension, congestive heart failure, moderate bilateral hydroureteronephrosis, . In the interim, at some point, she fell and has a left femur fracture and a left 2 part humeral fracture and was admitted to [facility] on 03/11/2024 with an additional diagnosis of C. difficile colitis. She was sent per EMS to the ED for complaint of abdominal pain. Labs in ED significant for a hemoglobin hematocrit of 8.1/26.3, platelets 318. Creatinine and electrolytes essentially normal, AST 100, ALT 57, alk phos greater than thousand, T. bili 0.8. Second significant hypoalbuminemia at 1.4, troponin 85.2, lactate negative at 1.7, urine with greater than 50 urine white blood cells, 2+ nitrites, and greater than [address] abdomen and pelvis with contrast impression "1. Pronounced anasarca with new moderate right greater than left pleural effusions, moderate ascites, and pronounced body wall edema. 2. Several bowel containing right lateral ventral hernias without high-grade obstruction however there could be a partial obstruction as some of the small bowel is borderline dilated upstream from the hernias. 3. Large volume of stool in the proximal colon. 4. Unchanged moderate right hydronephrosis. Left hydronephrosis has improved." At bedside patient is obtunded, jaundiced, with anasarca, tenderness to the abdomen which is generalized. Left arm in sling, pillows beneath bilateral knees, ecchymosis to chin. She is poorly responsive but opens her eyes to gentle palpation, oriented to name. [facility] contacted for more patient information and information on daughter listed as patient's contact. They have no record of her name or number. There is a consult to [facility] hospice but it is unclear whether this has been discussed with family. We will admit her for serial assessments and continued treatment of C. difficile with contact isolations while awaiting family. Of note on the 01/2024 admission, a surgical consult was obtained for hernia repair and the patient's advanced age and condition precluded any surgery as the risks are higher than the benefit. [facility] - call at time of discharge for home NIV delivery - call [facility] (cell [phone]) [phone] Diet: AHA Activity: Fall precautions Followup: Rosa Chen MD [Primary Care Provider] - 1-2 Weeks
[2024-03-24 08:06] LABS: Blood Morphology Comment NOT SEEN (NOT SEEN); Platelet Estimate ADEQ; White Blood Cell Scan OK (OK)
[2024-03-24 09:27] VITALS: BP 128/75; TEMP 98.2
[2024-03-24 12:53] VITALS: O2SAT 93
--- NOTE | 2024-03-28 08:52 | ECHO ---
HEIGHT: 5 ft 3 in WEIGHT: 239 lb 13.807 oz DATE OF STUDY: 03/16/[address]: May Levin MD 2-DIMENSIONAL: YES M.MODE: YES DOPPLER: YES COLOR FLOW: YES TDS: YES PORTABLE: YES DEFINITY: NO BUBBLE STUDY: NO DIAGNOSIS: HYPOTENSION CARDIAC HISTORY: CATHERIZATION: NO SURGERY: NO PROSTHETIC VALVE: NO PACEMAKER: NO MEASUREMENTS (cm) DIASTOLIC (NORMALS) SYSTOLIC (NORMALS) IVSd 1.3 (0.6-1.2) LA Diam 3.0 (1.9-4.0) LVEF 60% LVIDd 4.5 (3.5-5.7) LVIDs 3.3 (2.0-3.5) %FS 27% LVPWd 1.3 (0.6-1.2) Ao Diam 2.7 (2.0-3.7) 2 DIMENSIONAL ASSESSMENT: RIGHT ATRIUM: MILDLY DILATED LEFT ATRIUM: NORMAL RIGHT VENTRICLE: MODERATELY DILATED LEFT VENTRICLE: NORMAL TRICUSPID VALVE: MILD TRICUSPID REGURGITATION MITRAL VALVE: NORMAL PULMONIC VALVE: NORMAL AORTIC VALVE: NORMAL PERICARDIAL EFFUSION: NONE AORTIC ROOT: NORMAL LEFT VENTRICULAR WALL MOTION: NORMAL. DOPPLER/COLOR FLOW: GRADE II DIASTOLIC DYSFUNCTION. COMMENTS: 1. NORMAL LEFT VENTRICULAR SYSTOLIC FUNCTION. LEFT VENTRICULAR EJECTION FRACTION 60%. NORMAL WALL MOTION. 2. GRADE II DIASTOLIC DYSFUNCTION. 3. MODERATELY DILATED RIGHT VENTRICULAR CAVITY WITH MILDLY REDUCED FUNCTION. 4. SEVERE PULMONARY HYPERTENSION. RIGHT VENTRICULAR SYSTOLIC PRESSURE >60 mmHg. 5. ELEVATED FILLING PRESSURE. RIGHT ATRIAL PRESSURE 15-20 mmHg. TECHNOLOGIST: REECE SIN
== END 2024-03-24 09:35 | disposition home health service (06) | DRG 193 ==
LOC: ER 10:27 → ERHOLD 14:31 → 3RD-ICU 03-15 01:22 → 2ND 03-20 13:36
PROVIDERS: ADMIT Hospitalist; ATTEND Internal Medicine
PROC: 4A033R1 Measurement of Arterial Saturation, Peripheral, Percutaneous Approach (ICD-10-PCS; principal; 2024-03-14)
PROC: 5A09557 Assistance with Respiratory Ventilation, Greater than 96 Consecutive Hours, Continuous Positive Airway Pressure (ICD-10-PCS; 2024-03-14)
DX: J10.00 Influenza due to other identified influenza virus with unspecified type of pneumonia (principal); I50.33 Acute on chronic diastolic (congestive) heart failure; J96.21 Acute and chronic respiratory failure with hypoxia; E66.2 Morbid (severe) obesity with alveolar hypoventilation; J44.1 Chronic obstructive pulmonary disease with (acute) exacerbation; Z68.41 Body mass index [BMI] 40.0-44.9, adult; E87.20 Acidosis, unspecified; E87.3 Alkalosis; J44.0 Chronic obstructive pulmonary disease with (acute) lower respiratory infection; A04.72 Enterocolitis due to Clostridium difficile, not specified as recurrent; I11.0 Hypertensive heart disease with heart failure; F32.A Depression, unspecified; E88.09 Other disorders of plasma-protein metabolism, not elsewhere classified; K21.9 Gastro-esophageal reflux disease without esophagitis; I27.20 Pulmonary hypertension, unspecified; Z88.8 Allergy status to other drugs, medicaments and biological substances; Z74.01 Bed confinement status; Z79.82 Long term (current) use of aspirin; Z79.52 Long term (current) use of systemic steroids; Z77.29 Contact with and (suspected) exposure to other hazardous substances; Z79.899 Other long term (current) drug therapy
CPT/HCPCS: 36415; 36600; 71045; 80048; 80053; 80061; 82805; 82947; 83605; 83735; 83880; 84100; 84439; 84443; 84484; 85025; 85610; 85730; 87040; 87205; 87804; 87811; 93005; 93306; 94660; 94760; 96361; 96365; 96366; 96375; 97110; 97161; 99285; J0696; J1120; J1171; J1650; J1720; J1940; J2270; J2405; J2470; J2919; J3475; J3480; J3535; J7030; J7040; J7512; J7605; J7613; J7614; J7644; P9047